=== PATIENT | male | born 1955 | race Caucasian/White ===

== ENCOUNTER 2017-04-05 18:26 | Inpatient (IN) | payer OTHER, MEDICARE ==
[2017-04-05] VITALS (7 sets, daily range): BP systolic 115–130; BP diastolic 64–68; PULSE 100–150; RESP 18–22; TEMP 98.4–101.1; O2SAT 95–97
[~2017-04-05] VITALS: Ht 165.1 cm; Wt 55.4 kg
[~2017-04-05 18:26] MED LIST: LORC10TA PO; Z.0.NO CURRENT MEDS
[2017-04-05] MEDS ORDERED: SODIUM CHLOR 0.9% 1000 ML INJ 1,000 ML IV ONE ×2 (19:00→21:00)
[2017-04-05] MEDS ORDERED: VANCOMYCIN INJ 1,000 MG in SODIUM CHLOR 0.9% 250 ML INJ 250 ML IV ONE (19:15)
[2017-04-05] MEDS ORDERED: CEFEPIME INJ 2,000 MG in SODIUM CHLORIDE 0.9% INJ 100 ML IV ONE (19:15)
--- NOTE | 2017-04-05 19:20 | PD ---
Physical Exam Narrative General: The patient is a well-developed well-nourished male in no acute distress. Head and Neck exam: Head is normocephalic atraumatic. Eyes: EOMI, pupils are equal round and reactive to light. Nose: Midline septum with pink mucous membranes Mouth: Dentition unremarkable. Moist mucus membranes. Posterior oropharynx is not erythematous. No tonsillar hypertrophy. Uvula midline. Airway patent. Neck: No palpable lymphadenopathy. No nuchal rigidity. No thyromegaly. Cardiovascular: Sinus tachycardia in the 120s to 1:30 without murmurs, gallops, or rubs. No pulse deficit to the extremities on simultaneous auscultation and palpation of his radial artery. Lungs: Clear to auscultation bilaterally. No wheezes, rhonchi, or rales. Abdomen: Soft, without tenderness to palpation in all 4 quadrants of the abdomen. No guarding, rebound, or rigidity. Bowel sounds are audible. No tenderness on palpation of McBurney's point. Extremities: No clubbing, cyanosis, or edema. Neurologic Exam: Grossly nonfocal. Skin Exam: No rash noted. Intact skin that is warm and dry. Data Data Last Documented VS Vital Signs Date Time Temp Pulse Resp B/P (MAP) Pulse Ox O2 Delivery O2 Flow Rate FiO2 04/05/17 19:11 101.1 133 20 97 Nasal Cannula 1.00 Orders Orders Sepsis Workup Initiated (04/05/17 ) Electrocardiogram (04/05/17 18:53) Complete Blood Count With Diff (04/05/17 18:53) Comprehensive Metabolic Panel (04/05/17 18:53) Prothrombin Time / Inr (Pt) (04/05/17 18:53) Act Partial Throm Time (Ptt) (04/05/17 18:53) Lactic Acid Sepsis Protocol (04/05/17 18:53) Magnesium (Mg) (04/05/17 18:53) Troponin I (04/05/17 18:53) Urinalysis - C+S If Indicated (04/05/17 18:53) Blood Culture (04/05/17 18:53) Chest, Single Ap (04/05/17 18:53) Blood Glucose (04/05/17 18:53) Ecg Monitoring (04/05/17 18:53) Iv Access Insert/Monitor (04/05/17 18:53) Oximetry (04/05/17 18:53) Oxygen Administration (04/05/17 18:53) Sodium Chlor 0.9% 1000 Ml Inj (Ns 1000 M (04/05/17 19:00) Ct Pulmonary Angiogram (04/05/17 ) Cefepime Inj (Maxipime Inj) (04/05/17 19:15) Vancomycin Inj (Vancomycin Inj) (04/05/17 19:15) Acetaminophen (Tylenol) (04/05/17 19:30) Iohexol 350 Inj (Omnipaque 350 Inj) (04/05/17 20:10) Sodium Chlor 0.9% 1000 Ml Inj (Ns 1000 M (04/05/17 21:00) Acetamin-Hydrocod 325-5 Mg ([place] 5-325 (04/05/17 21:30) Admit Order (Ed Use Only) (04/05/17 21:47) Labs Laboratory Tests Test 04/05/17 19:05 White Blood Count 5.7 TH/MM3 Red Blood Count 2.77 MIL/MM3 Hemoglobin 9.6 GM/DL Hematocrit 27.2 % Mean Corpuscular Volume 98.3 FL Mean Corpuscular Hemoglobin 34.8 PG Mean Corpuscular Hemoglobin Concent 35.5 % Red Cell Distribution Width 14.4 % Platelet Count 206 TH/MM3 Mean Platelet Volume 7.6 FL Neutrophils (%) (Auto) 71.7 % Lymphocytes (%) (Auto) 2.7 % Monocytes (%) (Auto) 25.5 % Eosinophils (%) (Auto) 0.1 % Basophils (%) (Auto) 0.0 % Neutrophils # (Auto) 4.1 TH/MM3 Lymphocytes # (Auto) 0.2 TH/MM3 Monocytes # (Auto) 1.5 TH/MM3 Eosinophils # (Auto) 0.0 TH/MM3 Basophils # (Auto) 0.0 TH/MM3 CBC Comment DIFF FINAL Differential Comment Prothrombin Time 11.2 SEC Prothromb Time International Ratio 1.1 RATIO Activated Partial Thromboplast Time 29.7 SEC Blood Urea Nitrogen 23 MG/DL Creatinine 1.53 MG/DL Random Glucose 108 MG/DL Total Protein 7.7 GM/DL Albumin 2.5 GM/DL Calcium Level 9.2 MG/DL Magnesium Level 1.3 MG/DL Alkaline Phosphatase 125 U/L Aspartate Amino Transf (AST/SGOT) 50 U/L Alanine Aminotransferase (ALT/SGPT) 41 U/L Total Bilirubin 0.9 MG/DL Sodium Level 126 MEQ/L Potassium Level 3.6 MEQ/L Chloride Level 94 MEQ/L Carbon Dioxide Level 22.2 MEQ/L Anion Gap 10 MEQ/L Estimat Glomerular Filtration Rate 46 ML/MIN Lactic Acid Level 1.8 mmol/L Troponin I LESS THAN 0.02 NG/ML [facility] Medical Record Reviewed: Yes Supervised Visit with ERIC: No Interpretation(s) Last Impressions Chest X-Ray 04/05/17 1853 Signed Impressions: Service Date/Time: Wednesday, April 05, 2017 19:16 - CONCLUSION: Trace right base infiltrate. Dmitri Manuel MD CT Angiography 04/05/17 0000 Signed Impressions: Service Date/Time: Wednesday, April 05, 2017 20:05 - CONCLUSION: 1. No pulmonary embolus. 2. Patchy bilateral pneumonia as above. 3. Vague left hilar mass concerning for carcinoma. 4. Upper limits of normal to mildly enlarged mediastinal lymph nodes. 5. Coronary artery calcification. Dmitri Manuel MD Narrative Course During the course of the patients emergency department visit, the patients history, examination, and differential diagnosis were reviewed with the patient. The patient was placed on a rim fire priming operator with oximetry and frequent blood pressure monitoring. The patient had IV access obtained and blood work sent for analysis. The patient's case was checked out to me by at the conclusion of his shift. Please see his complete history and physical. The patient had an ECG done on arrival. The patient's ECG shows a sinus tachycardia heart rate of 132, no acute ST segment elevation. QRS duration is 81 ms, QTC 352 ms. The Patient presents with low-grade fever, tachycardia, tachypnea and a history of lung cancer. The patient reports that he has had one course of chemotherapy approximately a month ago and has also been receiving radiation therapy. A Workup has been started to evaluate for possible sepsis, versus symptomatic anemia, versus pulmonary embolism. The patient was initially provided normal saline 1 L IV fluid bolus, cefepime and vancomycin IV for broad-spectrum coverage of possible underlying sepsis. The patient was given Tylenol 650 by mouth 1. The patients laboratory studies were reviewed and remarkable for a white count of 5.7, hemoglobin 9.6, platelets 206 with 71.7 neutrophils, lymphocytes 2.7, monocytes 25.5, CMP is remarkable for sodium of 126, chloride 94, BUN 23, creatinine 1.53, glucose 108, magnesium 1.3 which will be supplemented IV, AST 50, alkaline phosphatase 125, troponin I less than 0.02, albumin 2.5, lactic acid 1.8. PT 11.2, PTT 29.7 Radiology studies were reviewed and remarkable for a CTA that reveals no pulmonary embolism, patchy bilateral pneumonia, vague left hilar mass, mildly enlarged mediastinal lymph nodes, coronary artery calcifications. The patients results were discussed with the patient, including the plan of care. I explained that further testing and/ or monitoring is indicated based on the patients history, examination, and/ or laboratory findings. Therefore, I recommended admission for additional evaluation. The patient expressed understanding and was agreeable with this plan. The patient was admitted to the hospital in guarded condition and sent to a bed under the care of [facility] service. Sepsis Criteria SIRS Criteria (2 or more): Temp > 100.9 or < 96.8, Heart rate over 90, RR > 20 or PaCO2 < 32 Sepsis Criteria (SIRS+source): Infect source susp/known Criteria Outcome: Meets SIRS criteria, Meets sepsis criteria Physician Communication Physician Communication The patient's case including history, pertinent physical examination findings, and laboratory studies were discussed with Dr. Rodriguez. It was agreed that the patient would be admitted to the [facility] service. Diagnosis Primary Impression: Bilateral pneumonia Qualified Codes: J18.9 - Pneumonia, unspecified organism Additional Impression: Sepsis Qualified Codes: A41.9 - Sepsis, unspecified organism Admitting Information Admitting Physician Requests: Admit Barbara Nava MD Apr 05, 2017 19:20
[2017-04-05 19:24] LABS: AUTOMATED NEUTROPHIL # 4.1 TH/MM3 (1.8-7.7); EOSINOPHIL % 0.1 % (0.0-4.0); HEMATOCRIT 27.2 % (39.0-51.0); HEMO FLAGS DIFF FINAL; LYMPH % 2.7 % (9.0-44.0); LYMPHOCYTE # 0.2 TH/MM3 (1.0-4.8); MEAN CELL VOLUME 98.3 FL (80.0-100.0); MEAN CORPUSCULAR HEMOGLOBIN 34.8 PG (27.0-34.0); MEAN CORPUSCULAR HGB CONC 35.5 % (32.0-36.0); MONO % 25.5 % (0.0-8.0); NEUT % 71.7 % (16.0-70.0); PLATELET COUNT 206 TH/MM3 (150-450); RED BLOOD COUNT 2.77 MIL/MM3 (4.50-5.90); RED CELL DISTRIBUTION WIDTH 14.4 % (11.6-17.2); WHITE BLOOD COUNT 5.7 TH/MM3 (4.0-11.0)
--- NOTE | 2017-04-05 19:27 | PD ---
HPI Chief Complaint: Medical Clearance Time Seen by Provider: 18:42 Travel History International Travel<30 days: No Contact w/Intl Traveler<30days: No Traveled to known affect area: No History of Present Illness HPI Is a 61-year-old man who presents to the emergency department brought in by friends with worsening weakness, dyspnea on exertion, shortness of breath, and fatigue. His a recent diagnosis of lung cancer in November of this year. He's had 5 weeks of radiation therapy and he reports one episode of chemotherapy about a month or so ago. [facility]. He's had worsening symptoms and so his friends convinced him to come to the hospital here. He states that he feels like he is just dehydrated or malnourished as he hasn't been able to eat well for the past 5 days or so. History Past Medical History Narrative Medical Left-sided lung cancer, reports no metastasis Social History Alcohol Use: Yes Tobacco Use: Yes Allergies-Medications (Allergen,Severity, Reaction): Coded Allergies: No Known Allergies (Verified Adverse Reaction, Unknown, 04/05/17) Reported Meds & Prescriptions Reported Meds & Active Scripts Active Reported Lorcet 10/650 (Acetaminophen/Hydrocodone Bitart) Tab 1 Tab PO Q4HPRN FOR PAIN No Current Meds (Miscellaneous Medication) Misc Review of Systems Except as stated in HPI: all other systems reviewed are Neg Physical Exam Narrative GENERAL: Is a 61-year-old man, chronically ill-appearing, pale, decreased muscle bulk. SKIN: Generalized pallor. HEAD: Atraumatic. Normocephalic. EYES: Pupils equal and round. No scleral icterus. No injection or drainage. ENT: No nasal bleeding or discharge. Mucous membranes pink and moist. NECK: Trachea midline. No JVD. CARDIOVASCULAR: Heart rate rapid but regular. RESPIRATORY: Moderate tachypnea. No obvious respiratory distress. Lungs are clear to auscultation. GASTROINTESTINAL: Abdomen soft, non-tender, nondistended. Hepatic and splenic margins not palpable. MUSCULOSKELETAL: No obvious deformities. Decreased muscle bulk. No edema. NEUROLOGICAL: Awake and alert. No obvious cranial nerve deficits. Motor grossly within normal limits. Normal speech. PSYCHIATRIC: Appropriate mood and affect; insight and judgment normal. Data Data Last Documented VS Vital Signs Date Time Temp Pulse Resp B/P (MAP) Pulse Ox O2 Delivery O2 Flow Rate FiO2 04/05/17 19:11 101.1 133 20 97 Nasal Cannula 1.00 Orders Orders Sepsis Workup Initiated (04/05/17 ) Electrocardiogram (04/05/17 18:53) Complete Blood Count With Diff (04/05/17 18:53) Comprehensive Metabolic Panel (04/05/17 18:53) Prothrombin Time / Inr (Pt) (04/05/17 18:53) Act Partial Throm Time (Ptt) (04/05/17 18:53) Lactic Acid Sepsis Protocol (04/05/17 18:53) Magnesium (Mg) (04/05/17 18:53) Troponin I (04/05/17 18:53) Urinalysis - C+S If Indicated (04/05/17 18:53) Blood Culture (04/05/17 18:53) Chest, Single Ap (04/05/17 18:53) Blood Glucose (04/05/17 18:53) Ecg Monitoring (04/05/17 18:53) Iv Access Insert/Monitor (04/05/17 18:53) Oximetry (04/05/17 18:53) Oxygen Administration (04/05/17 18:53) Sodium Chlor 0.9% 1000 Ml Inj (Ns 1000 M (04/05/17 19:00) Ct Pulmonary Angiogram (04/05/17 ) Cefepime Inj (Maxipime Inj) (04/05/17 19:15) Vancomycin Inj (Vancomycin Inj) (04/05/17 19:15) Acetaminophen (Tylenol) (04/05/17 19:30) Labs Laboratory Tests Test 04/05/17 19:05 [facility] Medical Decision Making Medical Screen Exam Complete: Yes Emergency Medical Condition: Yes Differential Diagnosis Sepsis, anemia, PE, pleural effusion, pericardial effusion, dehydration, electrolyte abnormality, other Narrative Course Medical decision making INITIAL: This is a 61-year-old man, ill-appearing, pale, with new diagnosis of malignancy, receiving chemotherapy and radiation therapy, no recent chemotherapy , with tachycardia, tachypnea, and ill-appearing plenty of dyspnea on exertion or shortness of breath. He looks anemic. PE is possible. Sepsis or infection also probable. We'll check labs, x-ray, CT pulmonary angiogram, IV fluids, antibiotics, reassess. Luis Rausch MD Apr 05, 2017 19:27
[2017-04-05] MEDS ORDERED: ACETAMINOPHEN 325 MG TAB PO ONE (19:30)
[2017-04-05 19:35] LABS: APTT (PATIENT) 29.7 SEC (24.3-30.1); INTERNATIONAL NORMALIZED RATIO 1.1 RATIO; PROTHROMBIN TIME - PATIENT 11.2 SEC (9.8-11.6)
--- NOTE | 2017-04-05 19:39 | RADRPT ---
EXAM DATE/TIME: 04/05/2017 19:16 [facility] COMPARISON: No previous studies available for comparison. INDICATIONS : Short of breath. MEDICAL HISTORY : None. SURGICAL HISTORY : None. ENCOUNTER: Initial ACUITY: 1 day PAIN SCORE: 0/10 LOCATION: Bilateral chest FINDINGS: Mild infiltrate seen in the right lung base. No pleural effusion. No pneumothorax. Normal heart size. CONCLUSION: Trace right base infiltrate. Dmitri Manuel MD on April 05, 2017 at 19:37 Board Certified Radiologist. This report was verified electronically.
[2017-04-05 19:43] LABS: ALT (GPT) 41 U/L (12-78); ANION GAP 10 MEQ/L (5-15); AST (GOT) 50 U/L (15-37); BICARBONATE 22.2 MEQ/L (21.0-32.0); BLOOD UREA NITROGEN 23 MG/DL (7-18); CHLORIDE 94 MEQ/L (98-107); GLOMERULAR FILTRATION RATE 46 ML/MIN (>89); MAGNESIUM 1.3 MG/DL (1.5-2.5); POTASSIUM 3.6 MEQ/L (3.5-5.1); SODIUM (NA) 126 MEQ/L (136-145)
[2017-04-05 19:47] LABS: ALKALINE PHOSPHATASE 125 U/L (45-117); TOTAL BILIRUBIN ADULT 0.9 MG/DL (0.2-1.0)
[2017-04-05] MEDS ORDERED: IOHEXOL 350 MG/ML 10 ML VIAL (for RAD DIAG) IVCONTRAST ONE (20:10)
--- NOTE | 2017-04-05 20:33 | RADRPT ---
EXAM DATE/TIME: 04/05/2017 20:05 [facility] COMPARISON: CHEST SINGLE AP, April 05, 2017, 19:16. INDICATIONS : Weakness; rule out pulmonary embolus. IV CONTRAST: 74 cc Omnipaque 350 (iohexol) IV RADIATION DOSE: 22.98 CTDIvol (mGy) MEDICAL HISTORY : Carcinoma, lung. Cardiovascular disease Hypertension. SURGICAL HISTORY : None. ENCOUNTER: Initial ACUITY: 1 day PAIN SCALE: 0/10 LOCATION: chest TECHNIQUE: Volumetric scanning of the chest was performed using a pulmonary embolism protocol MIP images were re constructed. Using automated exposure control and adjustment of the mA and/or kV according to patien t size, radiation dose was kept as low as reasonably achievable to obtain optimal diagnostic quality images. DICOM format image data is available electronically for review and comparison. Follow-up recommendations for detected pulmonary nodules are based at a minimum on nodule size and pa tient risk factors according to Fleischner Society Guidelines. FINDINGS: There is no pulmonary embolus. There is mild emphysema. Patchy parenchymal consolidation seen of both lungs, on the right espec ially the anterior segment of the right upper lobe and posteriorly in the right lower lobe. On the le ft there is mostly upper lobe and superior segment of the lower lobe involvement. No pleural effusion s are demonstrated. No pneumothorax. Vague masslike area seen in the left hilum measuring approximately 3.9 x 4.2 x 3.9 cm in size an d of concern for a central primary bronchogenic carcinoma. There is a subcarinal lymph node and measu res 15 mm in greatest short axis dimension and multiple scattered subcentimeter lymph nodes elsewhere in the mediastinum. Heart size within normal limits. Coronary artery calcification noted. CONCLUSION: 1. No pulmonary embolus. 2. Patchy bilateral pneumonia as above. 3. Vague left hilar mass concerning for carcinoma. 4. Upper limits of normal to mildly enlarged mediastinal lymph nodes. 5. Coronary artery calcification. Dmitri Manuel MD on April 05, 2017 at 20:26 Board Certified Radiologist. This report was verified electronically.
[2017-04-05] MEDS ORDERED: ACETAMINOPHEN/HYDROcodone 325 MG/5 MG TAB PO ONE (21:30)
[2017-04-05] MEDS ORDERED: HYDROmorphone HCL PF 1 MG/ML VIAL IV PUSH PRN (22:00)
[2017-04-05] MEDS ORDERED: SENNOSIDES 8.6 MG TAB PO PRN (22:00)
[2017-04-05] MEDS ORDERED: RESP: ALBUTEROL 2.5 MG/IPRATROPIUM 0.5 MG NEB (PRN) NEB (22:00)
[2017-04-05] MEDS ORDERED: LACTULOSE SYRUP 20 GM/30 ML CUP PO PRN (22:00)
[2017-04-05] MEDS ORDERED: MAGNESIUM HYDROXIDE SUSP 30 ML CUP PO PRN (22:00)
[2017-04-05] MEDS ORDERED: Vancomycin Consult Pharmacy 1 EA OTHER SCH (22:00)
[2017-04-05] MEDS ORDERED: BISACODYL 10 MG SUPP RECTAL PRN (22:00)
[2017-04-05] MEDS ORDERED: ONDANSETRON HCL 4 MG/2 ML VIAL IVP PRN (22:00)
[2017-04-05] MEDS ORDERED: SODIUM CHLORIDE 0.9% FLUSH 10 ML FLUSH IV FLUSH PRN (22:00)
--- NOTE | 2017-04-05 22:01 | HHI.HP ---
HPI Service [facility] Primary Care Physician Unknown Admission Diagnosis Bilateral pneumonia Diagnoses: (1) Sepsis Diagnosis: Principal (2) PNA (pneumonia) Diagnosis: Principal (3) Lung cancer Diagnosis: Principal (4) OBED (acute kidney injury) Diagnosis: Principal Travel History International Travel<30 Days: No Contact w/Intl Traveler <30 Da: No Traveled to Known Affected Are: No History of Present Illness This is a 61-year-old male with a PMH of Lung CA, HTN, CAD, COPD and Tobacco Abuse who was brought to the ER by friends secondary to complaints of generalized weakness and SOB x1 wk. Also notes decreased PO intake. Recently diagnosed w/ Lung CA in November 2016, has completed 5wks of Radiation, pending Chemotherapy. States symptoms have been getting progressively worse. Denies fever, chills, nausea, vomiting or diarrhea. On arrival, BP 117/64, HR 133, O2 sat 97% on 2L NC, Temp 101.1. WBC normal however elevated neutrophil count. Creatinine 1.53, previously 0.86 on 09/25/16. Troponin negative. Lactic Acid normal. INR 1.1. CXR with trace right basilar infiltrate. CTA Pulm negative for PE, patchy bilateral pneumonia, left hilar mass concerning for carcinoma. S /p Blood Cultures, Vanc/Cefepime in ER. Review of Systems Except as stated in HPI: all other systems reviewed are Neg ROS: 14 point review of systems otherwise negative. Past Family Social History Past Medical History PMH: Lung CA, HTN, CAD, COPD and Tobacco Abuse Past Surgical History PAST SURGICAL HISTORY: Abdominal Surgery Allergies: Coded Allergies: No Known Allergies (Verified Allergy, Unknown, 04/05/17) Family History PAST FAMILY HISTORY: Reviewed. No h/o DM or CAD Social History PAST SOCIAL HISTORY: Occasional alcohol. Positive for tobacco. Negative drugs. Physical Exam Vital Signs Vital Signs Date Time Temp Pulse Resp B/P (MAP) Pulse Ox O2 Delivery O2 Flow Rate FiO2 04/05/17 21:51 98.4 105 20 117/64 (81) 95 Nasal Cannula 1.00 04/05/17 19:11 101.1 133 20 97 Nasal Cannula 1.00 04/05/17 18:55 (88) 97 Room Air 04/05/17 18:55 97 Room Air 04/05/17 18:51 134 29 04/05/17 18:28 100.1 150 22 130/68 (88) 95 Physical Exam PE: GENERAL: Middle-aged male in no acute distress. HEENT: PERRLA, EOMI. No scleral icterus or conjunctival pallor. No lid lag or facial droop. CARDIOVASCULAR: +tachycardia. No obvious murmurs to auscultation. No chest tenderness to palpation. RESPIRATORY: No obvious rhonchi or wheezing. Clear to auscultation. Breath sounds equal bilaterally. GASTROINTESTINAL: Abdomen soft, non-tender, nondistended. BS normal. MUSCULOSKELETAL: Extremities without clubbing, cyanosis, or edema. No obvious deformities. NEUROLOGICAL: Awake, alert and oriented x4. No focal neurologic deficits. Moving both upper and lower extremities spontaneously. Laboratory Laboratory Tests Test 04/05/17 19:05 White Blood Count 5.7 Red Blood Count 2.77 Hemoglobin 9.6 Hematocrit 27.2 Mean Corpuscular Volume 98.3 Mean Corpuscular Hemoglobin 34.8 Mean Corpuscular Hemoglobin Concent 35.5 Red Cell Distribution Width 14.4 Platelet Count 206 Mean Platelet Volume 7.6 Neutrophils (%) (Auto) 71.7 Lymphocytes (%) (Auto) 2.7 Monocytes (%) (Auto) 25.5 Eosinophils (%) (Auto) 0.1 Basophils (%) (Auto) 0.0 Neutrophils # (Auto) 4.1 Lymphocytes # (Auto) 0.2 Monocytes # (Auto) 1.5 Eosinophils # (Auto) 0.0 Basophils # (Auto) 0.0 CBC Comment DIFF FINAL Differential Comment Prothrombin Time 11.2 Prothromb Time International Ratio 1.1 Activated Partial Thromboplast Time 29.7 Blood Urea Nitrogen 23 Creatinine 1.53 Random Glucose 108 Total Protein 7.7 Albumin 2.5 Calcium Level 9.2 Magnesium Level 1.3 Alkaline Phosphatase 125 Aspartate Amino Transf (AST/SGOT) 50 Alanine Aminotransferase (ALT/SGPT) 41 Total Bilirubin 0.9 Sodium Level 126 Potassium Level 3.6 Chloride Level 94 Carbon Dioxide Level 22.2 Anion Gap 10 Estimat Glomerular Filtration Rate 46 Lactic Acid Level 1.8 Troponin I LESS THAN 0.02 Date/Time Source Procedure Growth Status 04/05/17 19:05 Blood Peripheral Aerobic Blood Culture Pending Received 04/05/17 19:05 Blood Peripheral Anaerobic Blood Culture Pending Received Result Diagram: 04/05/175 04/05/17 190 Caprini VTE Risk Assessment Caprini VTE Risk Assessment: Mod/High Risk (score >= 2) Caprini Risk Assessment Model Point Value = 1 Point Value = 2 Point Value = 3 Point Value = 5 Age 41-60 Minor surgery BMI > 25 kg/m2 Swollen legs Varicose veins or History of unexplained or recurrent spontaneous Oral contraceptives or hormone replacement Sepsis (< 1 month) Serious lung disease, including pneumonia (< 1 month) Abnormal pulmonary function Acute myocardial infarction Congestive heart failure (< 1 month) History of inflammatory bowel disease Medical patient at bed rest Age 61-74 Arthroscopic surgery Major open surgery (> 45 min) Laparoscopic surgery (> 45 min) Malignancy Confined to bed (> 72 hours) Immobilizing plaster cast Central venous access Age >= 75 History of VTE Family history of VTE Factor V Leiden Prothrombin [id number] Lupus anticoagulant Anticardiolipin antibodies Elevated serum homocysteine Heparin-induced thrombocytopenia Other congenital or acquired thrombophilia Stroke (< 1 month) Elective arthroplasty Hip, pelvis, or leg fracture Acute spinal cord injury (< 1 month) Prophylaxis Regimen Total Risk Factor Score Risk Level Prophylaxis Regimen 0-1 Low Early ambulation 2 Moderate Order ONE of the following: *Sequential Compression Device (SCD) *Heparin 5000 units SQ BID 3-4 Higher Order ONE of the following medications: *Heparin 5000 units SQ TID *Enoxaparin/Lovenox 40 mg SQ daily (WT < 150 kg, CrCl > 30 mL/min) *Enoxaparin/Lovenox 30 mg SQ daily (WT < 150 kg, CrCl > 10-29 mL/min) *Enoxaparin/Lovenox 30 mg SQ BID (WT < 150 kg, CrCl > 30 mL/min) AND/OR *Sequential Compression Device (SCD) 5 or more Highest Order ONE of the following medications: *Heparin 5000 units SQ TID (Preferred with Epidurals) *Enoxaparin/Lovenox 40 mg SQ daily (WT < 150 kg, CrCl > 30 mL/min) *Enoxaparin/Lovenox 30 mg SQ daily (WT < 150 kg, CrCl > 10-29 mL/min) *Enoxaparin/Lovenox 30 mg SQ BID (WT < 150 kg, CrCl > 30 mL/min) AND *Sequential Compression Device (SCD) Assessment and Plan Problem List: (1) Sepsis ICD Code: A41.9 - Sepsis, unspecified organism Status: Acute (2) PNA (pneumonia) ICD Code: J18.9 - Pneumonia, unspecified organism (3) OBED (acute kidney injury) ICD Code: N17.9 - Acute kidney failure, unspecified (4) Lung cancer ICD Code: C34.90 - Malignant neoplasm of unspecified part of unspecified bronchus or lung Assessment and Plan A/P: 1. Sepsis: Temp 101.1, HR 130, WBC normal however elevated neutrophil count. Source-PNA. S/p Blood Cultures, Vanc/Cefepime in ER. Follow up cultures, continue IV Abx. 2. PNA: CXR w/ right base infiltrate, CTA Pulm negative for PE, +bilateral pneumonia and right hilar mass, images reviewed by me. Continue w/ IV Abx as above. DuoNeb prn. 3. Lung CA: Recently diagnosed in November 2016, s/p 5wk Radiation, pending Chemotherapy. Follow up w/ Oncology as scheduled. 4. OBED: Creatinine 1.53, previously 0.86 on 09/25/16, IVF for hydration, repeat labs in am. 5. Tobacco Abuse: Pt counselled. NicoDerm prn if needed. 6. DVT Prophylaxis: Heparin sq 7. Social work for d/c planning as needed. 8. Case discussed w/ ER physician at length. Physician Certification 2 Midnight Certification Type: Admission for Inpatient Services Order for Inpatient Services The services are ordered in accordance with Medicare regulations or non- Medicare payer requirements, as applicable. In the case of services not specified as inpatient-only, they are appropriately provided as inpatient services in accordance with the 2-midnight benchmark. Estimated LOS (days): 2 days is the estimated time the patient will need to remain in the hospital, assuming treatment plan goals are met and no additional complications. Post-Hospital Plan: Not yet determined Problem Qualifiers (1) Sepsis: Qualified Codes: A41.9 - Sepsis, unspecified organism Remedios Rodriguez MD Apr 05, 2017 22:01
[2017-04-05] MEDS ORDERED: MAGNESIUM SULFATE 1 GM PREMIX 100 ML IV ONE (23:00)
[2017-04-06] VITALS (7 sets, daily range): BP systolic 128–162; BP diastolic 67–79; PULSE 94–139; RESP 20–22; TEMP 97.3–100.2; O2SAT 91–96
[2017-04-06] MEDS: ACETAMINOPHEN 325 MG TAB PO PRN ×2 (03:49→21:01)
--- NOTE | 2017-04-06 07:59 | HHI.PR ---
Subjective Remarks In bed complaints of sore mouth will give magic wash on soft diet. Also low K replaced. No n/v/d/c. Says she did not eat for 1 week. No much cough feel very tired and appears malnourished, cachectic. No fever or chills. Objective Vitals Vital Signs Date Time Temp Pulse Resp B/P (MAP) Pulse Ox O2 Delivery O2 Flow Rate FiO2 04/06/17 04:00 139 04/06/17 04:00 100.2 125 20 128/67 (87) 91 04/06/17 04:00 Nasal Cannula 2.00 04/06/17 00:00 116 04/06/17 00:00 Nasal Cannula 2.00 04/05/17 23:19 106 04/05/17 23:15 98.4 114 21 115/64 (81) 97 04/05/17 22:40 04/05/17 22:39 100 18 95 Nasal Cannula 1.00 04/05/17 21:51 98.4 105 20 117/64 (81) 95 Nasal Cannula 1.00 04/05/17 19:11 101.1 133 20 97 Nasal Cannula 1.00 04/05/17 18:55 (88) 97 Room Air 04/05/17 18:55 97 Room Air 04/05/17 18:51 134 29 04/05/17 18:28 100.1 150 22 130/68 (88) 95 I/O 04/05/17 04/05/17 04/05/17 04/06/17 04/06/17 04/06/17 07:00 15:00 23:00 07:00 15:00 23:00 Intake Total 1350 ml 480 ml Output Total 150 ml Balance 1350 ml 330 ml Intake Oral 480 ml IV Total 1350 ml Output Urine Total 150 ml # Bowel Movements 1 Result Diagram: 04/05/17190404/05/171904 Imaging Last Impressions Chest X-Ray 04/05/173 Signed Impressions: Service Date/Time: Wednesday, April 05, 2017 19:16 - CONCLUSION: Trace right base infiltrate. Dmitri Manuel MD CT Angiography 04/05/17 0000 Signed Impressions: Service Date/Time: Wednesday, April 05, 2017 20:05 - CONCLUSION: 1. No pulmonary embolus. 2. Patchy bilateral pneumonia as above. 3. Vague left hilar mass concerning for carcinoma. 4. Upper limits of normal to mildly enlarged mediastinal lymph nodes. 5. Coronary artery calcification. Dmitri Manuel MD Objective Remarks GENERAL: Middle-aged male cachectic, in no acute distress. HEENT: Bitemporal waisting. CARDIOVASCULAR: +tachycardia. No obvious murmurs to auscultation. No chest tenderness to palpation. RESPIRATORY: No obvious rhonchi or wheezing. Clear to auscultation. Breath sounds equal bilaterally. GASTROINTESTINAL: Abdomen soft, non-tender, nondistended. BS normal. 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 Extremities without clubbing, cyanosis, or edema. No obvious deformities. NEUROLOGICAL: Awake, alert and oriented x4. No focal neurologic deficits. Moving both upper and lower extremities spontaneously. A/P Problem List: (1) Sepsis ICD Code: A41.9 - Sepsis, unspecified organism Status: Acute (2) PNA (pneumonia) ICD Code: J18.9 - Pneumonia, unspecified organism (3) OBED (acute kidney injury) ICD Code: N17.9 - Acute kidney failure, unspecified (4) Lung cancer ICD Code: C34.90 - Malignant neoplasm of unspecified part of unspecified bronchus or lung Assessment and Plan Sepsis: Temp 101.1, HR 130, WBC normal however elevated neutrophil count. Source-PNA. S/p Blood Cultures, Vanc/Cefepime in ER. Follow up cultures, continue IV Abx. Check legionella.pneumococcal Ag urine, check sputum cultures PNA: CXR w/ right base infiltrate, CTA Pulm negative for PE, +bilateral pneumonia and right hilar mass, images reviewed by me. Continue w/ IV Abx as above. DuoNeb prn. Hyponatremia: Na 126 on admission. Continue NS IVF, monitor Na closely for overcorrection. Hypokalemia: Replace with KCL po. mOnitor K level and replce as need. Sore mouth will give magic wash, continue on soft diet. Severe Protein calorie malnutrition cachectic bitemporal waisint, weak handgrip. Will check prealbumin. Add ensure to diet, patient with poor dentition to follow up as OP with dentist Lung CA: Recently diagnosed in November 2016, s/p 5wk Radiation, pending Chemotherapy. Follow up w/ Oncology as scheduled. OBED: Creatinine 1.53, previously 0.86 on 09/25/16, IVF for hydration, repeat labs in am. Tobacco Abuse: Pt counselled. NicoDerm prn if needed. DVT Prophylaxis: Heparin sq case management consulted for d/c planning as needed. Discussed with the patient, nurse Problem Qualifiers (1) Sepsis: Qualified Codes: A41.9 - Sepsis, unspecified organism Queenie Wright MD Apr 06, 2017 07:59
[2017-04-06 08:38] LABS: AUTOMATED NEUTROPHIL # 4.4 TH/MM3 (1.8-7.7); BASOPHIL % 0.1 % (0.0-2.0); EOSINOPHIL % 0.5 % (0.0-4.0); HEMATOCRIT 23.9 % (39.0-51.0); HEMO FLAGS DIFF FINAL; LYMPH % 2.5 % (9.0-44.0); LYMPHOCYTE # 0.1 TH/MM3 (1.0-4.8); MEAN CELL VOLUME 100.9 FL (80.0-100.0); MEAN CORPUSCULAR HEMOGLOBIN 34.2 PG (27.0-34.0); MEAN CORPUSCULAR HGB CONC 33.9 % (32.0-36.0); MONO % 17.8 % (0.0-8.0); NEUT % 79.1 % (16.0-70.0); PLATELET COUNT 187 TH/MM3 (150-450); RED BLOOD COUNT 2.37 MIL/MM3 (4.50-5.90); RED CELL DISTRIBUTION WIDTH 14.2 % (11.6-17.2); WHITE BLOOD COUNT 5.5 TH/MM3 (4.0-11.0)
[2017-04-06] MEDS: guaiFENesin E.R. 600 MG TAB PO SCH ×2 (08:41→20:47)
[2017-04-06] MEDS: SODIUM CHLORIDE 0.9% FLUSH 10 ML FLUSH IV FLUSH SCH ×2 (08:41→20:47)
[2017-04-06] MEDS: DOCUSATE SODIUM 50 MG/SENNA 8.6 MG TAB PO SCH ×2 (08:42→20:47)
[2017-04-06] MEDS: HEPARIN SODIUM - SQ 10,000 UNITS/ML VIAL SQ SCH ×2 (08:42→20:47)
[2017-04-06] MEDS ORDERED: CEFEPIME INJ 1,000 MG in SODIUM CHLORIDE 0.9% INJ 100 ML IV SCH (09:00)
[2017-04-06 09:21] LABS: ALKALINE PHOSPHATASE 106 U/L (45-117); ALT (GPT) 30 U/L (12-78); ANION GAP 9 MEQ/L (5-15); AST (GOT) 39 U/L (15-37); BICARBONATE 19.8 MEQ/L (21.0-32.0); BLOOD UREA NITROGEN 17 MG/DL (7-18); CHLORIDE 103 MEQ/L (98-107); GLOMERULAR FILTRATION RATE 77 ML/MIN (>89); POTASSIUM 3.2 MEQ/L (3.5-5.1); SODIUM (NA) 132 MEQ/L (136-145); TOTAL BILIRUBIN ADULT 0.6 MG/DL (0.2-1.0)
[2017-04-06] MEDS: SODIUM CHLOR 0.9% 1000 ML INJ 1,000 ML IV SCH ×2 (11:03→17:42)
[2017-04-06] MEDS ORDERED: POTASSIUM CHLORIDE 10 MEQ CONTROLLED RELEASE TAB PO ONE (12:30)
[2017-04-06] MEDS: NYSTAT/DIPHENHY/LIDO MOUTHWASH (Adult) 120ML SWISH-SWAL SCH ×3 (13:00→20:48)
[2017-04-06] MEDS: VANCOMYCIN 1,000 MG/NS 250 ML IV SCH ×2 (14:11)
--- NOTE | 2017-04-06 18:48 | EKG ---
Date Performed: 04/05/2017 Time Performed: 19:22:19 PTAGE: 61 years EKG: SINUS TACHYCARDIA ABNORMAL RHYTHM ECG NO PREVIOUS TRACING DOCTOR: Jose Gomes Interpretating Date/Time 04/06/2017 18:47:30
[2017-04-06] MEDS ORDERED: METOPROLOL TARTRATE 25 MG TAB PO ONE (20:30)
[2017-04-06] MEDS: CEFEPIME 2000 MG/NS 100 ML IV SCH ×2 (20:47)
[2017-04-06 20:57] LABS: HEMATOCRIT 22.5 % (39.0-51.0); REVIEW FLAG FINAL
[2017-04-07] VITALS (9 sets, daily range): BP systolic 116–158; BP diastolic 59–94; PULSE 102–136; RESP 18–22; TEMP 97.7–101.1; O2SAT 90–94
[2017-04-07 01:24] LABS: APTT (PATIENT) 35.6 SEC (24.3-30.1)
[2017-04-07] MEDS ORDERED: POTASSIUM CHLORIDE 25 MEQ EFFERVESCENT TAB PO ONE (02:15)
[2017-04-07] MEDS: SODIUM CHLOR 0.9% 1000 ML INJ 1,000 ML IV SCH ×2 (02:39→14:58)
[2017-04-07 03:22] LABS: AUTOMATED NEUTROPHIL # 5.6 TH/MM3 (1.8-7.7); BASOPHIL % 0.2 % (0.0-2.0); EOSINOPHIL # 0.1 TH/MM3 (0-0.4); EOSINOPHIL % 0.8 % (0.0-4.0); HEMATOCRIT 22.8 % (39.0-51.0); HEMO FLAGS DIFF FINAL; LYMPH % 4.1 % (9.0-44.0); LYMPHOCYTE # 0.3 TH/MM3 (1.0-4.8); MEAN CELL VOLUME 100.4 FL (80.0-100.0); MEAN CORPUSCULAR HEMOGLOBIN 34.8 PG (27.0-34.0); MEAN CORPUSCULAR HGB CONC 34.7 % (32.0-36.0); NEUT % 83.9 % (16.0-70.0); PLATELET COUNT 183 TH/MM3 (150-450); RED BLOOD COUNT 2.27 MIL/MM3 (4.50-5.90); RED CELL DISTRIBUTION WIDTH 14.4 % (11.6-17.2); WHITE BLOOD COUNT 6.7 TH/MM3 (4.0-11.0)
[2017-04-07 03:41] LABS: BICARBONATE 21.2 MEQ/L (21.0-32.0); MAGNESIUM 1.5 MG/DL (1.5-2.5); POTASSIUM 3.8 MEQ/L (3.5-5.1)
[2017-04-07] MEDS ORDERED: METO25TA3 PO (04:36)
[2017-04-07] MEDS ORDERED: TAMS0.4C4 PO (04:36)
[2017-04-07] MEDS ORDERED: LOVA10TA PO (04:46)
[2017-04-07] MEDS ORDERED: FURO20TA PO (04:46)
[2017-04-07] MEDS ORDERED: CLOP75TA PO (04:46)
[2017-04-07] MEDS ORDERED: CENTCHW4 CHEW (04:46)
[2017-04-07] MEDS ORDERED: KLOR8TAB PO (04:46)
[2017-04-07] MEDS ORDERED: UMEC1AER INH (04:46)
[2017-04-07] MEDS ORDERED: CYAN1TAB24 (04:46)
[2017-04-07] MEDS: NYSTAT/DIPHENHY/LIDO MOUTHWASH (Adult) 120ML SWISH-SWAL SCH ×4 (08:52→20:14)
[2017-04-07] MEDS: SODIUM CHLORIDE 0.9% FLUSH 10 ML FLUSH IV FLUSH SCH ×2 (08:54→20:15)
[2017-04-07] MEDS: VANCOMYCIN 1,000 MG/NS 250 ML IV SCH ×2 (08:54)
[2017-04-07] MEDS: guaiFENesin E.R. 600 MG TAB PO SCH ×2 (08:54→20:14)
[2017-04-07] MEDS: DOCUSATE SODIUM 50 MG/SENNA 8.6 MG TAB PO SCH ×2 (08:54→20:14)
[2017-04-07] MEDS: HEPARIN SODIUM - SQ 10,000 UNITS/ML VIAL SQ SCH ×2 (08:55→20:15)
[2017-04-07] MEDS ORDERED: INFLUENZA VIRUS VACCINE (QUADRIVALENT) 0.5 ML SYR IM ONE (10:00)
[2017-04-07] MEDS ORDERED: PNEUMOCOCCAL POLYVALENT INJ 25 MCG/0.5 ML SYR IM ONE (10:00)
[2017-04-07 13:41] LABS: BLOOD, URINE NEG (NEG); GLUCOSE,URINE NEG (NEG); KETONE, URINE NEG (NEG); MUCUS URINE FEW /lpf (OCC); NITRITE,URINE NEG (NEG); SQUAMOUS EPITHELIAL CELL URINE <1 /hpf (0-5); URINE COLOR YELLOW (YELLW/STRAW)
[2017-04-07 13:42] LABS: COMMENT (UR) CATH-CULT NOT IND; CULTURE IF INDICATED CATH CULTURE NOT IND
--- NOTE | 2017-04-07 14:25 | HHI.PR ---
Subjective Remarks complains of oral pain- causing decrease po intake on exam with wheezing still tachycardic 120-130s- in sinus Objective Vitals Vital Signs Date Time Temp Pulse Resp B/P (MAP) Pulse Ox O2 Delivery O2 Flow Rate FiO2 04/07/17 12:00 97.9 120 18 158/74 (102) 90 04/07/17 12:00 90 Nasal Cannula 4.00 04/07/17 08:00 98.2 117 20 145/88 (107) 92 04/07/17 08:00 92 Nasal Cannula 4.00 04/07/17 08:00 115 04/07/17 04:00 111 04/07/17 04:00 98.6 115 18 139/76 (97) 92 04/07/17 01:57 Nasal Cannula 3.00 04/07/17 01:52 97.9 105 20 116/59 (78) 91 04/07/17 00:00 136 04/07/17 00:00 97.9 105 20 116/59 (78) 91 04/06/17 20:13 99.3 136 22 162/79 (106) 92 04/06/17 20:00 Nasal Cannula 3.00 04/06/17 20:00 94 04/06/17 20:00 Nasal Cannula 04/06/17 16:00 97.3 131 20 135/78 (97) 91 I/O 04/06/17 04/06/17 04/06/17 04/07/17 04/07/17 04/07/17 07:00 15:00 23:00 07:00 15:00 23:00 Intake Total 480 ml 360 ml 100 ml 999 ml Output Total 150 ml 450 ml 150 ml Balance 330 ml 360 ml 100 ml 549 ml -150 ml Intake Oral 480 ml 360 ml IV Total 100 ml 999 ml Output Urine Total 150 ml 450 ml 150 ml # Voids 2 # Bowel Movements 1 2 1 Result Diagram: 04/07/17 0256 04/07/17 0256 Imaging Last Impressions Chest X-Ray 04/05/173 Signed Impressions: Service Date/Time: Wednesday, April 05, 2017 19:16 - CONCLUSION: Trace right base infiltrate. Dmitri Manuel MD CT Angiography 04/05/17 0000 Signed Impressions: Service Date/Time: Wednesday, April 05, 2017 20:05 - CONCLUSION: 1. No pulmonary embolus. 2. Patchy bilateral pneumonia as above. 3. Vague left hilar mass concerning for carcinoma. 4. Upper limits of normal to mildly enlarged mediastinal lymph nodes. 5. Coronary artery calcification. Dmitri Manuel MD Objective Remarks awake and alert, good sats on 02 oral cavity- right lower molar/gingival area - inner gum area- with calcium deposits (per patient chronic) with few expiratory wheezes regular rhythm abdomen soft, nontender extremities no edema A/P Problem List: (1) Sepsis ICD Code: A41.9 - Sepsis, unspecified organism Status: Acute (2) PNA (pneumonia) ICD Code: J18.9 - Pneumonia, unspecified organism (3) OBED (acute kidney injury) ICD Code: N17.9 - Acute kidney failure, unspecified (4) Lung cancer ICD Code: C34.90 - Malignant neoplasm of unspecified part of unspecified bronchus or lung Assessment and Plan 61 years old male Sepsis: Temp 101.1, HR 130, WBC normal however elevated neutrophil count. Source-PNA. S/p Blood Cultures, Vanc/Cefepime in ER. Follow up cultures, continue IV Abx. legionella.pneumococcal Ag urine, check sputum cultures PNA: CXR w/ right base infiltrate, CTA Pulm negative for PE, +bilateral pneumonia and right hilar mass, Continue w/ IV Abx as above. DuoNeb prn. History of Lung CA: Underlying COPD Recently diagnosed in November 2016, s/p 5wk Radiation, pending Chemotherapy. Follow up w/ Oncology as scheduled. start IV solumedrol q 6 duoneb Hyponatremia: asymptomatic. Na 126 on admission. , monitor Na closely for overcorrection. Hypokalemia: Replace with KCL po. mOnitor K level and replce as need. Gingival deposit- right lower gum area - chronic Sore mouth on magic wash, continue on soft diet. Severe Protein calorie malnutrition cachectic . Will check prealbumin. Add ensure to diet, patient with poor dentition to follow up as OP with dentist dietitian consult OBED: Creatinine 1.53, previously 0.86 on 09/25/16, IVF for hydration, ff Tobacco Abuse: Pt counselled. NicoDerm prn if needed. DVT Prophylaxis: Heparin sq case management consulted for d/c planning as needed. Discussed with the patient, nurse Problem Qualifiers (1) Sepsis: Qualified Codes: A41.9 - Sepsis, unspecified organism Darryl Villalba MD Apr 07, 2017 14:25
[2017-04-07] MEDS ORDERED: DILTIAZEM HCL 25 MG/5 ML VIAL IV ONE (14:45)
[2017-04-07] MEDS: PANTOPRAZOLE SODIUM 40 MG VIAL IV PUSH SCH (14:58)
[2017-04-07] MEDS: methylPREDNISolone SOD SUCC 40 MG/1 ML VIAL IV PUSH SCH ×2 (14:58→20:15)
[2017-04-07] MEDS: RESP: ALBUTEROL 2.5 MG/IPRATROPIUM 0.5 MG NEB (SCH) NEB ×2 (15:38→21:02)
[2017-04-07] MEDS: ACETAMINOPHEN 325 MG TAB PO PRN (15:39)
[2017-04-07] MEDS ORDERED: DILTIAZEM HCL 30 MG TAB PO SCH ×2 (16:00→18:00)
[2017-04-07] MEDS: CEFEPIME 2000 MG/NS 100 ML IV SCH ×2 (20:28)
[2017-04-08] VITALS (18 sets, daily range): BP systolic 87–162; BP diastolic 50–94; PULSE 73–138; RESP 18–30; TEMP 96.4–97.7; O2SAT 91–100
[2017-04-08] MEDS: VANCOMYCIN 1,000 MG/NS 250 ML IV SCH ×2 (01:14)
[2017-04-08] MEDS: methylPREDNISolone SOD SUCC 40 MG/1 ML VIAL IV PUSH SCH ×3 (01:15→16:21)
[2017-04-08] MEDS: SODIUM CHLOR 0.9% 1000 ML INJ 1,000 ML IV SCH (01:16)
[2017-04-08] MEDS ORDERED: PHARMACY ORDERED LAB ONE (01:45)
[2017-04-08] MEDS: RESP: ALBUTEROL 2.5 MG/IPRATROPIUM 0.5 MG NEB (SCH) NEB (02:42)
[2017-04-08] MEDS ORDERED: methylPREDNISolone SOD SUCC 125 MG/2 ML VIAL IV PUSH ONE (04:15)
[2017-04-08] MEDS ORDERED: RESP: ALBUTEROL 2.5 MG/IPRATROPIUM 0.5 MG NEB (SCH) NEB ONE (04:15)
--- NOTE | 2017-04-08 04:44 | HHI.PR ---
Objective Vital Signs Date Time Temp Pulse Resp B/P (MAP) Pulse Ox O2 Delivery O2 Flow Rate FiO2 04/08/17 02:42 94 Nasal Cannula 4.00 04/08/17 00:00 105 04/08/17 00:00 97.6 109 18 157/90 (112) 92 04/07/17 20:00 102 04/07/17 20:00 97.7 106 18 132/72 (92) 94 04/07/17 20:00 Nasal Cannula 3.00 04/07/17 16:09 122 04/07/17 16:00 90 4.00 04/07/17 16:00 101.1 135 22 156/94 (114) 90 04/07/17 15:38 92 Nasal Cannula 4.00 04/07/17 12:00 97.9 120 18 158/74 (102) 90 04/07/17 12:00 90 Nasal Cannula 4.00 04/07/17 08:00 98.2 117 20 145/88 (107) 92 04/07/17 08:00 92 Nasal Cannula 4.00 04/07/17 08:00 115 I/O 04/07/17 04/07/17 04/07/17 04/08/17 04/08/17 04/08/17 07:00 15:00 23:00 07:00 15:00 23:00 Intake Total 999 ml 250 ml 999 ml Output Total 450 ml 350 ml Balance 549 ml -100 ml 999 ml IV Total 999 ml 250 ml 999 ml Output Urine Total 450 ml 350 ml # Voids 2 # Bowel Movements 1 1 Result Diagram: 04/07/17 0256 04/07/17 0256 Jermain Lau MD Apr 08, 2017 04:44
[2017-04-08] MEDS ORDERED: FUROSEMIDE 40 MG/4 ML VIAL IV PUSH ONE ×2 (04:45→06:45)
[2017-04-08 05:10] LABS: AUTOMATED NEUTROPHIL # 5.5 TH/MM3 (1.8-7.7); BASOPHIL % 0.2 % (0.0-2.0); HEMO FLAGS DIFF FINAL; LYMPHOCYTE # 0.1 TH/MM3 (1.0-4.8); MEAN CELL VOLUME 101.6 FL (80.0-100.0); MEAN CORPUSCULAR HEMOGLOBIN 33.8 PG (27.0-34.0); MEAN CORPUSCULAR HGB CONC 33.3 % (32.0-36.0); MONO % 4.8 % (0.0-8.0); PLATELET COUNT 222 TH/MM3 (150-450); RED BLOOD COUNT 2.56 MIL/MM3 (4.50-5.90); RED CELL DISTRIBUTION WIDTH 14.7 % (11.6-17.2); WHITE BLOOD COUNT 5.9 TH/MM3 (4.0-11.0)
[2017-04-08] MEDS ORDERED: MAGNESIUM SULFATE 1 GM PREMIX 100 ML IV ONE (05:30)
[2017-04-08] MEDS ORDERED: DILTIAZEM HCL 25 MG/5 ML VIAL IV ONE ×2 (05:30→06:30)
--- NOTE | 2017-04-08 05:38 | RADRPT ---
EXAM DATE/TIME: 04/08/2017 04:32 [facility] COMPARISON: CHEST SINGLE AP, April 05, 2017, 19:16. INDICATIONS : Shortness of breath. MEDICAL HISTORY : Carcinoma, lung. Cardiovascular disease Hypertension SURGICAL HISTORY : None. ENCOUNTER: Subsequent ACUITY: 3 days PAIN SCORE: 0/10 LOCATION: Bilateral chest FINDINGS: A single AP erect portable view of the chest was obtained and demonstrates new coarse infiltrate thro ughout the right lung. Left lung demonstrates minimal opacity. The heart size remains within normal l imits and there is no definite effusion. Overlying hardware and leads are noted. CONCLUSION: New coarse infiltrate in the right lung most characteristic of pneumonia. Willy Pantoja MD on April 08, 2017 at 5:35 Board Certified Radiologist. This report was verified electronically.
[2017-04-08 05:43] LABS: BICARBONATE 18.1 MEQ/L (21.0-32.0); POTASSIUM 3.8 MEQ/L (3.5-5.1)
[2017-04-08] MEDS ORDERED: DILTIAZEM INJ 125 MG in SODIUM CHLORIDE 0.9% INJ 100 ML IV PRN (05:45)
[2017-04-08] MEDS ORDERED: LORazepam 2 MG/ML VIAL IV PUSH ONE (05:45)
[2017-04-08] MEDS: POTASSIUM CHLOR 20 MEQ PREMIX 100 ML IV SCH ×2 (05:50→11:04)
[2017-04-08] MEDS ORDERED: RESP: IPRATROPIUM 0.5 MG/2.5 ML NEB NEB PRN (06:00)
--- NOTE | 2017-04-08 06:04 | HHI.PR ---
Addendum to Inpatient Note Addendum Reason: Additional Documentation Additional Information I was called by patient's nurse at around 4 AM because patient was having shortness of breath. Nurse reported that patient was also sound quite congested. She has held his IV fluids at that time. Patient in the previous night, was tachycardic and we did receive phone calls on him then. This tachycardia was improved with small dose of metoprolol at that time. Patient usually takes metoprolol at home. Chart reviewed. After discussion with the patient's nurse, I have placed orders for chest x-ray , BNP, nebulizer treatments, Solu-Medrol 125 mg IV and advised nurse to put patient on BiPAP. However within a few minutes, her nurse called me back because patient was at this time screaming complaining of shortness of breath and she had decided to call for the rapid response. Came to see patient at the bedside. Patient is awake and alert. He was on BiPAP at the time of my exam. During this rapid response time, he also became tachycardic which was not present initially when the nurse called me. His heart rate was 138. He was afebrile. Chest x-ray which was done at the bedside personally reviewed. Bilateral pulmonary congestion with worsening bilateral infiltrates. I have ordered for Lasix 40 mg IV stat at that time. Also advised patient's nursing to continue to monitor patient closely, and only to transfer patient to intensive care unit after receiving diuresis. Impression: Acute respiratory distress secondary to fluid overload/worsening pneumonia Tachycardia secondary to missed home doses of beta blockers, and due to acute respiratory distress. Worsening respiratory distress with tachycardia in 148 after been transferred to ICU. Multifactorial. Secondary to anxiety/movement while off BiPAP as the main cause as well. Plan: Transfer patient to ICU stat. Continue BiPAP. Input/output. Continue Lasix 40 g IV every 12 hours. Echocardiogram in a.m. Continue nebs treatments. Changed to Atrovent. Continue steroids. Cardizem 20 mg IV 1 dose. Start patient on Cardizem drip. Also started on Ativan 1 mg IV 1 dose now to help with tachycardia and anxiety. Continue current antibiotics regimen to cefepime and vanco ID consult palliative care consult to help with further clarification of goals code status discussed with patient- wants full code senior manager mmcoe consult for critical care management- transfer of care critical care 40min Jermain Lau MD 6, 2017 06:04
[2017-04-08] MEDS ORDERED: MISCELLANEOUS NURSING INFORMATION XX SCH (06:15)
[2017-04-08] MEDS ORDERED: CHLORHEXIDINE GLUCONATE 2 % 1 PACK (2 CLOTHS) TOP PRN (06:15)
[2017-04-08] MEDS ORDERED: MORPHINE SULFATE 4 MG/ML INJ ONE (06:26)
[2017-04-08 06:44] LABS: BLOOD GAS BASE EXCESS -8.4 mmol/L (-2-2); BLOOD GAS CARBOXYHEMOGLOBIN 0.8 % (0-4); BLOOD GAS HCO3 16 mmol/L (22-26); BLOOD GAS METHEMOGLOBIN 1.1 % (0-2); BLOOD GAS O2 HGB SATURATION 91 % (90-100); BLOOD GAS PCO2 31 mmHg (38-42); BLOOD GAS PO2 75 mmHg (61-120); BLOOD GAS TOTAL HGB 9.3 G/DL (12.0-16.0); CRITICAL VALUE YES; DRAW SITE LT BRACHIAL; FIO2 45 %; NUMBER OF ARTERIAL PUNCTURES 1; OXYGEN DEVICE BiPAP; STAT YES; TEMP CORR TO 98.6; VENT SETTINGS 15IPAP/5EPAP
[2017-04-08] MEDS ORDERED: CEFEPIME 2000 MG/NS 100 ML IV ONE ×2 (07:00)
[2017-04-08] MEDS ORDERED: DEXMEDETOMIDINE HCL 200 MCG/2 ML VIAL IV PUSH ONE (07:00)
[2017-04-08] MEDS: RESP: IPRATROPIUM 0.5 MG/2.5 ML NEB NEB SCH ×3 (07:29→20:58)
[2017-04-08] MEDS: PANTOPRAZOLE SODIUM 40 MG VIAL IV PUSH SCH (08:56)
[2017-04-08] MEDS: SODIUM CHLORIDE 0.9% FLUSH 10 ML FLUSH IV FLUSH SCH (08:57)
[2017-04-08] MEDS: guaiFENesin E.R. 600 MG TAB PO SCH ×2 (09:00→21:00)
[2017-04-08] MEDS: HEPARIN SODIUM - SQ 10,000 UNITS/ML VIAL SQ SCH (09:00)
[2017-04-08] MEDS: NYSTAT/DIPHENHY/LIDO MOUTHWASH (Adult) 120ML SWISH-SWAL SCH ×4 (09:00→21:00)
[2017-04-08] MEDS: DOCUSATE SODIUM 50 MG/SENNA 8.6 MG TAB PO SCH ×2 (09:00→21:00)
--- NOTE | 2017-04-08 10:45 | PD.CONS ---
Consult Service Palliative Care Consult Requested By Dr. Lau Primary Care Physician Dr. Will Reason for Consultation a. To assist with evaluation and management of symptoms including: shortness of breath, agitation, decreased oral intake, physical deconditioning b. To assist medical decision maker(s) with: better understanding of current medical conditions; weighing benefits/burdens of medical treatment options; making medical treatment decisions. HPI History of Present Illness Mr Adams is a 61 years old male with a past medical history of lung cancer, COPD, hypertension, CAD and tobacco use. Patient was diagnosed with lung cancer in November, and he underwent 5 weeks of radiation and pending chemotherapy treatment, though patient`s states that he did have 1 treatment of chemotherapy. Patient currently resides in a transitional home. Patient was accompanied by his friends to the ER on 04/05/17 complaining of shortness on breath, worsening weakness, fatigue and poor appetite for 5 days prior to ER visit. ER Course: * ECG revealed sinus tachycardia heart rate of 132, no acute ST segment elevation. * Vital signs in ER- Tmax 101.1degrees F oral, HR 133, BP 117/64, RR 29, O2 saturation 97% on 2 L NC. * Laboratory workup revealed WBC 5.7, hemoglobin 9.6, hematocrit 27.2, platelet count 206, sodium 126, potassium 3.6, BUN/creatinine 23/1.53,random glucose 108 , AST 50, ALT 41,Troponin less than 0.02, Total protein7.7, Albumin 2.5. Sepsis workup initiated. * Received 1 L normal saline IV fluid bolus, cefepime and vancomycin IV for broad-spectrum coverage of possible underlying sepsis and Tylenol 650mg po. * CT angiography revealed no PE. Patchy bilateral pneumonia, left hilar concerning for carcinoma. Mildly enlarged mediastinal lymph nodes and coronary artery calcification. * Chest X ray revealed trace right base infiltrate. * Patient was admitted for further evaluation and treatment. Patient was a Halicat on 04/08/17 due to acute respiratory distress, and tachycardia, requiring use of BiPAP. Chest X ray revealed worsening pneumonia. Patient was transferred to ICU. Clinical course complicated with persistent shortness of breath, and Afib with RVR. Critical care Dr. Valdez consulted. Infectious disease Dr. Zamora consulted for evaluation and treatment of worsening pneumonia. Palliative care consulted to address goals of care. Patient seen and examined in his room. Patient currently on BiPAP. Requested respiratory therapist to switch patient temporarily to a non-rebreather to facilitate conversation with patient. Patient sleeping but easily arousable. Lethargic and oriented to person, place and situation. Patient denies pain at this time. He is requesting coffee or orange juice. Patient stating that his mouth is dry and he is thirsty. Laboratory workup today revealing WBC 5.9, hemoglobin 8.7, hematocrit 26.0, platelet count 222, sodium 135, potassium 3.8, BUN/creatinine 10/0.99, BNP 1262. Currently afebrile. SBP 80s-160s. O2 saturation high 90s on BiPAP-FiO2 55%. Obtained psychosocial history and medical history. Patient appears to have insight and judgement of his condition. Addressed code status, discussed benefits and limitations of CPR given patient`s multiple ongoing comorbidities. Patient verbalized that,"I would want to be a DNR considering that I have lung cancer that may get worse and I don`t have anyone to take care of me." Patient indicated that he has a DNR at Dr. Oh office. Patient does not want to be resuscitated or intubated. Discussed advance directives and patient was not sure if he signed a living will or health care surrogate. He stated that if he is incapacitated he would like his long time friend Kay Rizvi to be his health care surrogate and his cousin Dahiana Mayorga to be the alternate HCS. Assisted patient with completing health care surrogate form. Witnessed by bedside RN Sabra Pike and myself. Telephone call made to Dr. Oh office -left message (by Sade Gilliam). Telephone call to Kay ([facility]) -Left voice mail with contact information for Palliative care. Unable to leave message for alternate HCS. Case discussed with Dr. Mayo Valdez and bedside RN . Function/Cognitive Trajectory Patient lives in a transitional home. Patient was independent of all his ADLs, ambulatory and able to make his needs known. Patient endorses being able to ambulate short distances only due to increased shortness of breath. Patient states that he has lost weight since he was diagnosed with lung cancer though he is not able to state how much. Patient stated that during radiation therapy he had problems with insomnia and that "it was a very confusing time". Patient could not elaborate further what he meant with that statement. He states that he has to provide food for himself or he gets "underspiced" soup that he rarely eats. Reports that of late his appetite has been poor. . Review of Systems Constitutional: COMPLAINS OF: Fatigue, Fever, Weight loss, Change in appetite, Generalized weakness Eyes: DENIES: Eye inflammation Ears, nose, mouth, throat: COMPLAINS OF: Throat pain, DENIES: Hearing loss Respiratory: COMPLAINS OF: Shortness of breath, DENIES: Cough, Sputum production Cardiovascular: COMPLAINS OF: Dyspnea on Exertion, DENIES: Lower Extremity Edema Gastrointestinal: DENIES: Nausea, Vomiting, Difficulty Swallowing Hematologic/Lymphatics: COMPLAINS OF: Bruising Psychiatric: COMPLAINS OF: Anxiety Past Family Social History Coded Allergies: No Known Allergies (Verified Allergy, Unknown, 04/05/17) Past Medical History Lung CA,s/p radiation HTN CAD COPD Tobacco Abuse . Past Surgical History -Atherectomy of the left anterior descending with a bare-metal stent in 2013. -Abdominal Surgery . Reported Medications Centrum (Multiple Vitamins W/ Minerals) 1 Chew 1 Tab CHEW DAILY B12 (Cyanocobalamin) 1,000 Mcg Tab Anoro Ellipta Inh (Umeclidinium/Vilanterol) 62.5-25 Mcg/Act Aero 1 Puff INH Lovastatin 10 Mg Tab 10 Mg PO DAILY Clopidogrel (Clopidogrel Bisulfate) 75 Mg Tab 75 Mg PO DAILY Furosemide 20 Mg Tab 20 Mg PO DAILY Klor-Con 8 (Potassium Chloride) 8 Meq Tab 8 Meq PO TID Tamsulosin (Tamsulosin HCl) 0.4 Mg Cap 0.4 Mg PO BID Metoprolol Tartrate 25 Mg Tab 25 Mg PO BID Lorcet 10/650 (Acetaminophen/Hydrocodone Bitart) Tab 1 Tab PO Q4HPRN . Current Medications Medications (Trade) Dose Ordered Sig/[place]enton Route Start Time Stop Time Status Last Admin Pharmacy Profile Note 0 ml @ 0 mls/hr UNSCH OTHER 04/05/17 22:00 (NS Flush) 2 ml UNSCH PRN IV FLUSH 04/05/17 22:00 (NS Flush) 2 ml BID IV FLUSH 04/06/17 09:00 04/08/17 08:57 (Zofran Inj) 4 mg Q6H PRN IVP 04/05/17 22:00 (Tylenol) 650 mg Q6H PRN PO 04/05/17 22:00 04/07/17 15:39 (Mohawk 5-325 Mg) 1 tab Q4H PRN PO 04/05/17 22:00 (Dilaudid Pf Inj) 1 mg Q3H PRN IV PUSH 04/05/17 22:00 (Nata-Colace) 1 tab BID PO 04/06/17 09:00 04/07/17 20:14 (Milk Of Magnesia Liq) 30 ml Q12H PRN PO 04/05/17 22:00 (Senokot) 17.2 mg Q12H PRN PO 04/05/17 22:00 (Dulcolax Supp) 10 mg DAILY PRN RECTAL 04/05/17 22:00 (Lactulose Liq) 30 ml DAILY PRN PO 04/05/17 22:00 (Mucinex Er) 600 mg BID PO 04/06/17 09:00 04/07/17 20:14 (Heparin Inj) 5,000 units Q12HR SQ 04/06/17 09:00 04/07/17 20:15 Vancomycin HCl 1000 mg/Sodium Chloride 250 ml @ 250 mls/hr Q18H IV 04/06/17 14:00 04/08/17 01:14 (Magic Mouthwash Adult Liq) 10 ml QID SWISH-SWAL 04/06/17 13:00 04/07/17 20:14 (SoluMEDROL INJ) 40 mg Q6H IV PUSH 04/07/17 15:00 04/08/17 08:56 (Protonix Inj) 40 mg DAILY IV PUSH 04/07/17 14:45 04/08/17 08:56 Diltiazem HCl 125 mg/Sodium Chloride 125 ml @ 5 mls/hr TITRATE PRN IV 04/08/17 05:45 04/08/17 06:04 (Atrovent Neb) 0.5 mg Q6HR NEB NEB 04/08/17 10:00 04/08/17 07:29 (Atrovent Neb) 0.5 mg Q2HR NEB PRN NEB 04/08/17 06:00 (Lasix Inj) 40 mg BID@09,18 IV PUSH 04/08/17 09:00 Miscellaneous Information 1 Q361D XX 04/08/17 06:15 (Chlorhexidine 2% Cloth) 3 pack Taper DAILY@04 TOP 04/09/17 04:00 04/05/18 03:59 (Chlorhexidine 2% Cloth) 3 pack UNSCH PRN TOP 04/08/17 06:15 (Morphine Inj) 4 mg Q4HR PRN IV PUSH 04/08/17 06:30 Cefepime HCl 2000 mg/Sodium Chloride 100 ml @ 200 mls/hr Q8H IV 04/08/17 16:00 Dexmedetomidine HCl 200 mcg/ Sodium Chloride 52 ml @ 2.9 mls/hr TITRATE PRN IV 04/08/17 07:00 Miscellaneous Information SPECIFIC LAB TO BE DRAWN:VANCOMYCIN TROUGH DATE TO... ONCE ONCE .XX 04/11/17 01:45 04/11/17 01:46 Family History Father of a heart attack at 52 years Mother from CHF complications Sister in 1970 from a motor vehicle accident . Substance Use Tobacco:Yes-still smokes Alcohol: Yes- Occasional alcohol (states that whenever he is able to go out of the transitional home he drinks alcohol). Prescription med abuse: No Illicits:Hx of substance abuse-Marijuana (patient states it has been many years ago) . Psychosocial History Patient was born and raised in [place]. He left [place] the age of 20. Patient moved to [place] in 1975. Patient has a 2 years college degree in [employer]. 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 Patient was and twice. He never had children. . Spiritual/Cultural Factors No evangelical affiliation . Health Care Surrogate: Copy in medical record Date completed: 04/08/2017- [facility] . Health Care Surrogate(s): HCS- (Long time friend-15 yrs) Kay Rizvi [phone] Alternate [facility]- Cousin- Dahiana Mayorga [phone] . Today's verbally stated goals: Patient does not want to be resuscitated or intubated, but wants to be treated. . Ethical and Legal Issues No ethical issues identified at this time. Patient signed HCS form today. . Physical Exam Vital Signs Date Time Temp Pulse Resp B/P (MAP) Pulse Ox O2 Delivery O2 Flow Rate FiO2 04/08/17 07:29 91 45 04/08/17 06:15 95 45 04/08/17 06:04 139 139/80 04/08/17 05:16 92 45 04/08/17 04:47 93 35 04/08/17 04:42 93 BiPAP 35 04/08/17 04:00 97.2 138 30 162/94 (116) 91 04/08/17 04:00 Nasal Cannula 4.00 04/08/17 02:42 94 Nasal Cannula 4.00 04/08/17 00:00 105 04/08/17 00:00 97.6 109 18 157/90 (112) 92 04/07/17 20:00 102 04/07/17 20:00 97.7 106 18 132/72 (92) 94 04/07/17 20:00 Nasal Cannula 3.00 04/07/17 16:09 122 04/07/17 16:00 90 4.00 04/07/17 16:00 101.1 135 22 156/94 (114) 90 04/07/17 15:38 92 Nasal Cannula 4.00 04/07/17 12:00 97.9 120 18 158/74 (102) 90 04/07/17 12:00 90 Nasal Cannula 4.00 Exam CONSTITUTIONAL/GENERAL: This is an ill-looking patient, who looks older than stated age.Patient looks pale. Currently in mild respiratory distress. TUBES/LINES/DRAINS:BiPAP,SCDs, PIVs, FC SKIN: Pale. Ecchymoses on upper extremities. No wounds seen anteriorly. Skin temperature appropriate. Not diaphoretic. HEAD: Atraumatic. Normocephalic. EYES: Pupils equal and round and reactive. Extraocular motions intact. No injection or drainage. Fundi not examined. ENT: Hearing grossly normal. Nose without bleeding or purulent drainage. Moist oral mucosa NECK: Trachea midline. Supple, nontender. CARDIOVASCULAR: Irregular rate and rhythm without murmurs, gallops, or rubs. No JVD. Peripheral pulses symmetric. On a cardizem gtt RESPIRATORY/CHEST: Symmetric,mildly labored respirations. Rhonchi to auscultation. Breath sounds equal bilaterally. No wheezes. GASTROINTESTINAL: Abdomen soft, non-tender, nondistended. No guarding. Bowel sounds present. GENITOURINARY: Without palpable bladder distension. Dockery catheter in place. MUSCULOSKELETAL: Extremities without clubbing, cyanosis, or edema. No joint tenderness or effusion noted. No calf tenderness. No mottling or clubbing. NEUROLOGICAL: Lethargic and oriented to self, place and situation. Motor and sensory grossly within normal limits. Follows commands. Moves all extremities. PSYCHIATRIC: Currently Calm. No obvious anxiety/depression. no apparent hallucinations or other psychotic thought process. . Diagnostic Tests Laboratory Laboratory Tests Test 04/05/17 19:05 04/06/17 07:30 04/06/17 20:34 04/07/17 01:02 White Blood Count 5.7 TH/MM3 (4.0-11.0) 5.5 TH/MM3 (4.0-11.0) Red Blood Count 2.77 MIL/MM3 (4.50-5.90) 2.37 MIL/MM3 (4.50-5.90) Hemoglobin 9.6 GM/DL (13.0-17.0) 8.1 GM/DL (13.0-17.0) 7.7 GM/DL (13.0-17.0) Hematocrit 27.2 % (39.0-51.0) 23.9 % (39.0-51.0) 22.5 % (39.0-51.0) Mean Corpuscular Volume 98.3 FL (80.0-100.0) 100.9 FL (80.0-100.0) Mean Corpuscular Hemoglobin 34.8 PG (27.0-34.0) 34.2 PG (27.0-34.0) Mean Corpuscular Hemoglobin Concent 35.5 % (32.0-36.0) 33.9 % (32.0-36.0) Red Cell Distribution Width 14.4 % (11.6-17.2) 14.2 % (11.6-17.2) Platelet Count 206 TH/MM3 (150-450) 187 TH/MM3 (150-450) Mean Platelet Volume 7.6 FL (7.0-11.0) 7.8 FL (7.0-11.0) Neutrophils (%) (Auto) 71.7 % (16.0-70.0) 79.1 % (16.0-70.0) Lymphocytes (%) (Auto) 2.7 % (9.0-44.0) 2.5 % (9.0-44.0) Monocytes (%) (Auto) 25.5 % (0.0-8.0) 17.8 % (0.0-8.0) Eosinophils (%) (Auto) 0.1 % (0.0-4.0) 0.5 % (0.0-4.0) Basophils (%) (Auto) 0.0 % (0.0-2.0) 0.1 % (0.0-2.0) Neutrophils # (Auto) 4.1 TH/MM3 (1.8-7.7) 4.4 TH/MM3 (1.8-7.7) Lymphocytes # (Auto) 0.2 TH/MM3 (1.0-4.8) 0.1 TH/MM3 (1.0-4.8) Monocytes # (Auto) 1.5 TH/MM3 (0-0.9) 1.0 TH/MM3 (0-0.9) Eosinophils # (Auto) 0.0 TH/MM3 (0-0.4) 0.0 TH/MM3 (0-0.4) Basophils # (Auto) 0.0 TH/MM3 (0-0.2) 0.0 TH/MM3 (0-0.2) CBC Comment DIFF FINAL DIFF FINAL Differential Comment Prothrombin Time 11.2 SEC (9.8-11.6) Prothromb Time International Ratio 1.1 RATIO Activated Partial Thromboplast Time 29.7 SEC (24.3-30.1) 35.6 SEC (24.3-30.1) Blood Urea Nitrogen 23 MG/DL (7-18) 17 MG/DL (7-18) Creatinine 1.53 MG/DL (0.60-1.30) 0.99 MG/DL (0.60-1.30) Random Glucose 108 MG/DL (74-106) 98 MG/DL (74-106) Total Protein 7.7 GM/DL (6.4-8.2) 6.0 GM/DL (6.4-8.2) Albumin 2.5 GM/DL (3.4-5.0) 2.0 GM/DL (3.4-5.0) Calcium Level 9.2 MG/DL (8.5-10.1) 8.6 MG/DL (8.5-10.1) Magnesium Level 1.3 MG/DL (1.5-2.5) Alkaline Phosphatase 125 U/L (45-117) 106 U/L (45-117) Aspartate Amino Transf (AST/SGOT) 50 U/L (15-37) 39 U/L (15-37) Alanine Aminotransferase (ALT/SGPT) 41 U/L (12-78) 30 U/L (12-78) Total Bilirubin 0.9 MG/DL (0.2-1.0) 0.6 MG/DL (0.2-1.0) Sodium Level 126 MEQ/L (136-145) 132 MEQ/L (136-145) Potassium Level 3.6 MEQ/L (3.5-5.1) 3.2 MEQ/L (3.5-5.1) 3.8 MEQ/L (3.5-5.1) Chloride Level 94 MEQ/L (98-107) 103 MEQ/L (98-107) Carbon Dioxide Level 22.2 MEQ/L (21.0-32.0) 19.8 MEQ/L (21.0-32.0) Anion Gap 10 MEQ/L (5-15) 9 MEQ/L (5-15) Estimat Glomerular Filtration Rate 46 ML/MIN (>89) 77 ML/MIN (>89) Lactic Acid Level 1.8 mmol/L (0.4-2.0) Troponin I LESS THAN 0.02 NG/ML Test 04/07/17 02:56 04/07/17 12:45 04/08/17 01:30 04/08/17 04:58 White Blood Count 6.7 TH/MM3 (4.0-11.0) 5.9 TH/MM3 (4.0-11.0) Red Blood Count 2.27 MIL/MM3 (4.50-5.90) 2.56 MIL/MM3 (4.50-5.90) Hemoglobin 7.9 GM/DL (13.0-17.0) 8.7 GM/DL (13.0-17.0) Hematocrit 22.8 % (39.0-51.0) 26.0 % (39.0-51.0) Mean Corpuscular Volume 100.4 FL (80.0-100.0) 101.6 FL (80.0-100.0) Mean Corpuscular Hemoglobin 34.8 PG (27.0-34.0) 33.8 PG (27.0-34.0) Mean Corpuscular Hemoglobin Concent 34.7 % (32.0-36.0) 33.3 % (32.0-36.0) Red Cell Distribution Width 14.4 % (11.6-17.2) 14.7 % (11.6-17.2) Platelet Count 183 TH/MM3 (150-450) 222 TH/MM3 (150-450) Mean Platelet Volume 7.7 FL (7.0-11.0) 7.8 FL (7.0-11.0) Neutrophils (%) (Auto) 83.9 % (16.0-70.0) 93.0 % (16.0-70.0) Lymphocytes (%) (Auto) 4.1 % (9.0-44.0) 2.0 % (9.0-44.0) Monocytes (%) (Auto) 11.0 % (0.0-8.0) 4.8 % (0.0-8.0) Eosinophils (%) (Auto) 0.8 % (0.0-4.0) 0.0 % (0.0-4.0) Basophils (%) (Auto) 0.2 % (0.0-2.0) 0.2 % (0.0-2.0) Neutrophils # (Auto) 5.6 TH/MM3 (1.8-7.7) 5.5 TH/MM3 (1.8-7.7) Lymphocytes # (Auto) 0.3 TH/MM3 (1.0-4.8) 0.1 TH/MM3 (1.0-4.8) Monocytes # (Auto) 0.7 TH/MM3 (0-0.9) 0.3 TH/MM3 (0-0.9) Eosinophils # (Auto) 0.1 TH/MM3 (0-0.4) 0.0 TH/MM3 (0-0.4) Basophils # (Auto) 0.0 TH/MM3 (0-0.2) 0.0 TH/MM3 (0-0.2) CBC Comment DIFF FINAL DIFF FINAL Differential Comment Blood Urea Nitrogen 10 MG/DL (7-18) 10 MG/DL (7-18) Creatinine 0.83 MG/DL (0.60-1.30) 0.99 MG/DL (0.60-1.30) Random Glucose 107 MG/DL (74-106) 202 MG/DL (74-106) Calcium Level 8.3 MG/DL (8.5-10.1) 8.6 MG/DL (8.5-10.1) Magnesium Level 1.5 MG/DL (1.5-2.5) Sodium Level 134 MEQ/L (136-145) 135 MEQ/L (136-145) Potassium Level 3.8 MEQ/L (3.5-5.1) 3.8 MEQ/L (3.5-5.1) Chloride Level 107 MEQ/L (98-107) 106 MEQ/L (98-107) Carbon Dioxide Level 21.2 MEQ/L (21.0-32.0) 18.1 MEQ/L (21.0-32.0) Anion Gap 6 MEQ/L (5-15) 11 MEQ/L (5-15) Estimat Glomerular Filtration Rate 94 ML/MIN (>89) 77 ML/MIN (>89) Prealbumin LESS THAN 3 MG/DL (20-40) Urine Color YELLOW (YELLW/STRAW) Urine Turbidity CLEAR (CLEAR) Urine pH 6.0 (5.0-8.5) Urine Specific [place] 1.017 (1.002-1.035) Urine Protein 30 mg/dL (NEG-TRACE) Urine Glucose (UA) NEG mg/dL (NEG) Urine Ketones NEG mg/dL (NEG) Urine Occult Blood NEG (NEG) Urine Nitrite NEG (NEG) Urine Bilirubin NEG (NEG) Urine Urobilinogen LESS THAN 2.0 MG/DL (LESS Urine Leukocyte Esterase NEG (NEG) Urine RBC 1 /hpf (0-3) Urine WBC 1 /hpf (0-5) Urine Squamous Epithelial Cells <1 /hpf (0-5) Urine Mucus FEW /lpf (OCC) Microscopic Urinalysis Comment CATH-CULT NOT IND Vancomycin Level Trough 16.9 MCG/ML (5.0-10.0) B-Type Natriuretic Peptide 1262 PG/ML (0-100) Test 04/08/17 06:30 Blood Gas Puncture Site LT BRACHIAL Blood Gas Patient Temperature 98.6 Blood Gas HCO3 16 mmol/L (22-26) Blood Gas Base Excess -8.4 mmol/L (-2-2) Blood Gas Oxygen Saturation 91 % (90-100) Arterial Blood pH 7.34 (7.380-7.420) Arterial Blood Partial Pressure CO2 31 mmHg (38-42) Arterial Blood Partial Pressure O2 75 mmHg (61-120) Arterial Blood Oxygen Content 12.0 Vol % (12.0-20.0) Arterial Blood Carboxyhemoglobin 0.8 % (0-4) Arterial Blood Methemoglobin 1.1 % (0-2) Blood Gas Hemoglobin 9.3 G/DL (12.0-16.0) Oxygen Delivery Device BiPAP Blood Gas Ventilator Setting 15IPAP/5EPAP Blood Gas Inspired Oxygen 45 % Result Diagram: 04/08/17 0458 04/08/17 0458 Microbiology Microbiology Date/Time Source Procedure Growth Status 04/05/17 19:05 Blood Peripheral Aerobic Blood Culture - Preliminary NO GROWTH IN 2 DAYS Resulted 04/05/17 19:05 Blood Peripheral Anaerobic Blood Culture - Preliminary NO GROWTH IN 2 DAYS Resulted 04/05/17 18:50 Blood Peripheral Aerobic Blood Culture - Preliminary NO GROWTH IN 2 DAYS Resulted 04/05/17 18:50 Blood Peripheral Anaerobic Blood Culture - Preliminary NO GROWTH IN 2 DAYS Resulted 04/07/17 13:23 Sputum Expectorated Sputum Gram Stain Pending Received 04/07/17 13:23 Sputum Expectorated Sputum Sputum Culture Pending Received 04/06/17 00:00 Urine Random Urine Legionella Antigen - Final PRESUMPTIVE NEGATIVE FOR LEGIONELLA P... Complete 04/06/17 00:00 Urine Random Urine Streptococcus pneumoniae Antigen (M - Final PRESUMPTIVE NEGATIVE FOR STREPTOCOCCU... Complete Imaging Last Impressions Chest X-Ray 04/08/17 0000 Signed Impressions: Service Date/Time: Saturday, April 08, 2017 04:32 - CONCLUSION: New coarse infiltrate in the right lung most characteristic of pneumonia. Willy Pantoja MD CT Angiography 04/05/17 0000 Signed Impressions: Service Date/Time: Wednesday, April 05, 2017 20:05 - CONCLUSION: 1. No pulmonary embolus. 2. Patchy bilateral pneumonia as above. 3. Vague left hilar mass concerning for carcinoma. 4. Upper limits of normal to mildly enlarged mediastinal lymph nodes. 5. Coronary artery calcification. Dmitri Manuel MD Patient/Family Conference Family Conference Location: Bedside Issues Discussed: * Palliative care role, purpose, approach * Additional medical, psychosocial, and spiritual history * Patients general health, functional status, and cognitive changes in the months leading up to the current hospitalization * Patient/family understanding of the current medical problems * Patient/family understanding of prognosis * Patients goals of care as best understood from advance directives and/or conversations and/or values * Current medical treatment options and benefits/burdens of those options * Likely scenarios comparing ongoing aggressive care with a transition to comfort measures only * Questions answered to the best of my ability * Palliative care contact information provided Assessment and Plan Disease Oriented Problem List: (1) Sepsis (2) Lung cancer (3) Bilateral pneumonia (4) Severe protein-calorie malnutrition (5) Tobacco use (6) Sore throat Symptom Scale: (1) Shortness of breath 0-10 Scale: Unable to quantify Comment: Multifactorial. Patient has a history of lung cancer. Reports that he has been having persistent dyspnea with exertion at home, unable to ambulate for a long distance due to dyspnea. Chest x-ray showed a trace right base infiltrate. Came in with c/o shortness of breath. Currently on BiPAP 55%. Dyspneic with conversation. Patient started on antibiotics. Patient received Lasix. Patient is on solumedrol 40mg q 6 hrs, Guaifenesin 600mg BID. . (2) Decreased oral intake 0-10 Scale: Unable to quantify Comment: Patient reporting that he has had poor appetite. . (3) Agitation Comment: Patient has a history of COPD, he has worsening respiratory status and was getting agitated. (4) Physical deconditioning 0-10 Scale: Unable to quantify Pertinent Non-Medical Issues Psychosocial:Patient was born and raised in [place]. He left [place] at the age of 20. Patient moved to [place] in 1975. Patient has a 2 years college degree in [employer]. Patient worked for an [employer] company as well as a [employer] company. Patient was and twice. He never had children. Spiritual:No evangelical affiliation Legal: Patient signed HCS form today. Ethical issues impacting care: None identified at this time. . Important Contacts [facility]- (Long time friend-15 yrs) Kay Rizvi [phone] Alternate [facility]- Cousin- Dahiana Mayorga [phone] . Prognosis Mr Adams is a 61 years old male with a past medical history of lung cancer, COPD, hypertension, CAD and tobacco use. Patient was diagnosed with lung cancer in November, and he underwent 5 weeks of radiation and pending chemotherapy treatment, though patient`s states that he did have 1 treatment of chemotherapy. Patient currently resides in a transitional home. Patient was accompanied by his friends to the ER on 04/05/17 complaining of shortness on breath, worsening weakness, fatigue and poor appetite for 5 days prior to ER visit. Clinical course complicated with persistent shortness of breath, and Afib with RVR. Given ongoing comorbidities, patient remains at risk for complications, deterioration and decline. . Code Status: No Code Plan PLAN: Legal decision maker: Patient appears to have insight and judgement of his condition at this time and is able to make his own medical decisions. In the event that he is incapacitated, patient designated his long time friend Kay Rizvi as his healthcare surrogate and his cousin Dahiana Mayorga and his alternate HCS. Goals: Aggressive short of no code. Addressed code status, discussed benefits and limitations of CPR given patient` s multiple ongoing comorbidities. Patient verbalized that,"I would want to be a DNR considering that I have lung cancer that may get worse and I don`t have anyone to take care of me." Patient indicated that he has a DNR at Dr. Oh office. Patient does not want to be resuscitated or intubated. Discussed advance directives and patient was not sure if he signed a living will or health care surrogate. He stated that if he is incapacitated he would like his long time friend Kay Rizvi to be his health care surrogate and his cousin Dahiana Mayorga to be the alternate HCS. Assisted patient with completing health care surrogate form. CODE STATUS: DNR/DNI SYMPTOMS: * Shortness of breath: Multifactorial. Patient has a history of lung cancer. Reports that he has been having persistent dyspnea with exertion at home, unable to ambulate for a long distance due to dyspnea. Chest x-ray showed a trace right base infiltrate. Came in with c/o shortness of breath. Currently on BiPAP 55%. Dyspneic with conversation. Patient started on antibiotics. Patient received Lasix. Patient is on solumedrol 40mg q 6 hrs, Guaifenesin 600mg BID. * Decreased PO Intake: Multifactorial. Patient states that he has to provide himself with food whilst living in a transitional home and unfortunately he does not like what they serve him. Patient also endorsing sore throat. Patient reporting that he has had poor appetite. Currently reporting being very thirsty and asking for orange juice, coffee. Recommending swallow evaluation. * Agitation: Patient has a history of COPD, he has worsening respiratory status and was getting agitated. Patient started on a Precedex infusion. Currently calm. * Physical deconditioning : Multifactorial. Patient lives in a transitional home and he reports that he has to provide food for himself otherwise he does not like what they serve. Patient c/o of unable to ambulate for long distances due to increased shortness of breath. He continues to smoke cigarettes despite SOB. Patient has muscle wasting and reports that he has significantly lost weight since he was diagnosed with lung cancer. Patient also endorsing sore throat. Patient may benefit from physical therapy if goals do not change though it can be difficulty for him to fully participate due to dyspnea. Total protein= 6.0, Albumin=2.0 Palliative care will continue to follow the patient during hospital course as condition evolves, to assist patient/decision-maker with understanding of their medical conditions, weighing benefits/burdens of treatment options, for clarification of goals of treatment. Additionally will assist with any symptoms of palliative concern Thank you for the opportunity to participate in the care of Mr. Adams. Attestation To help prompt me to consider important information that might be impacting today's encounter and assessment, information from prior notes written by myself or my colleagues may have been "brought forward" into today's note. My signature on this note, however, is an attestation that I personally performed the exam, history, and/or decision-making noted today, and, unless otherwise indicated, the interactions with patient, family, and staff as well as the review of records all occurred today. I also attest that the listed assessment and stated plan reflect my best clinical judgment today based on the combination of historical information, prior notes, and today's exam/ interactions. When time spent is documented, it refers only to time spent today by the signer, or if indicated, combined time spent today by collaborating physician/nurse practitioner. . Randa Tenorio Apr 08, 2017 10:45
[2017-04-08] MEDS: DEXMEDETOMIDINE INJ 200 MCG in SODIUM CHLORIDE 0.9% INJ 50 ML IV PRN (11:03)
[2017-04-08] MEDS: FUROSEMIDE 40 MG/4 ML VIAL IV PUSH SCH ×2 (11:05→17:29)
--- NOTE | 2017-04-08 11:17 | PD.CONS ---
History of Present Illness Service Infectious disease Consult Requested By Dr Lau Reason for Consult Evaluate patient with worsening pneumonia Primary Care Physician Unknown Diagnoses: History of Present Illness Patient seen and examined. Records reviewed. Patient is a 61-year-old male, presented to the hospital complaining of one- week history of generalized weakness, as well as worsening shortness of breath. Denies any significant cough or sputum production. He was diagnosed to have lung cancer November 2016, and has received about 5 weeks of radiation therapy. He has not had any nausea or vomiting. Denies any chest pain. His initial chest x -ray showed a trace right base infiltrate. Patient was started on antibiotics for pneumonia. Late last night cover marker today, patient had deterioration with increasing shortness of breath and increasing oxygen requirement. His chest x-ray showed worsening infiltrates on the right side. He was transferred to the intensive care unit for closer monitoring. Patient has been requiring BiPAP for oxygenation. Patient has had fevers up to 101. Blood cultures are negative so far. Urine for Legionella and pneumococcal antigen are negative. Infectious disease consultation has been requested to evaluate the patient with worsening pneumonia. Review of Systems Constitutional: COMPLAINS OF: Fever, Chills Eyes: DENIES: Eye pain Ears, nose, mouth, throat: DENIES: Nasal discharge, Oral lesions, Throat pain, Ear Pain Respiratory: COMPLAINS OF: Cough, Shortness of breath, DENIES: Sputum production Cardiovascular: COMPLAINS OF: Palpitations, Dyspnea on Exertion, DENIES: Chest pain, Syncope Gastrointestinal: DENIES: Abdominal pain, Diarrhea, Nausea, Vomiting, Difficulty Swallowing Genitourinary: DENIES: Urgency, Hematuria, Dysuria Musculoskeletal: DENIES: Joint pain, Joint Swelling Integumentary: DENIES: Rash Hematologic/lymphatic: DENIES: Lymphadenopathy Immunologic/allergic: DENIES: Urticaria Neurologic: DENIES: Headache, Localized weakness Psychiatric: DENIES: Hallucinations Past Family Social History Allergies: Coded Allergies: No Known Allergies (Verified Allergy, Unknown, 04/05/17) Past Medical History Lung CA Hypertension CAD COPD Tobacco Abuse Past Surgical History Abdominal surgery Reported Medications I attest that I obtained, updated or reviewed the home and current medications. Reported Meds & Active Scripts Active Reported Centrum (Multiple Vitamins W/ Minerals) 1 Chew 1 Tab CHEW DAILY B12 (Cyanocobalamin) 1,000 Mcg Tab Anoro Ellipta Inh (Umeclidinium/Vilanterol) 62.5-25 Mcg/Act Aero 1 Puff INH Lovastatin 10 Mg Tab 10 Mg PO DAILY Clopidogrel (Clopidogrel Bisulfate) 75 Mg Tab 75 Mg PO DAILY Furosemide 20 Mg Tab 20 Mg PO DAILY Klor-Con 8 (Potassium Chloride) 8 Meq Tab 8 Meq PO TID Tamsulosin (Tamsulosin HCl) 0.4 Mg Cap 0.4 Mg PO BID Metoprolol Tartrate 25 Mg Tab 25 Mg PO BID Lorcet 10/650 (Acetaminophen/Hydrocodone Bitart) Tab 1 Tab PO Q4HPRN FOR PAIN No Current Meds (Miscellaneous Medication) Misc Active Ordered Medications Current Medications Medications (Trade) Dose Ordered Sig/[place] Route Start Time Stop Time Status Last Admin Pharmacy Profile Note 0 ml @ 0 mls/hr UNSCH OTHER 04/05/17 22:00 (NS Flush) 2 ml UNSCH PRN IV FLUSH 04/05/17 22:00 (NS Flush) 2 ml BID IV FLUSH 04/06/17 09:00 04/08/17 08:57 (Zofran Inj) 4 mg Q6H PRN IVP 04/05/17 22:00 (Tylenol) 650 mg Q6H PRN PO 04/05/17 22:00 04/07/17 15:39 ([place] 5-325 Mg) 1 tab Q4H PRN PO 04/05/17 22:00 (Dilaudid Pf Inj) 1 mg Q3H PRN IV PUSH 04/05/17 22:00 (Nata-Colace) 1 tab BID PO 04/06/17 09:00 04/07/17 20:14 (Milk Of Magnesia Liq) 30 ml Q12H PRN PO 04/05/17 22:00 (Senokot) 17.2 mg Q12H PRN PO 04/05/17 22:00 (Dulcolax Supp) 10 mg DAILY PRN RECTAL 04/05/17 22:00 (Lactulose Liq) 30 ml DAILY PRN PO 04/05/17 22:00 (Mucinex Er) 600 mg BID PO 04/06/17 09:00 04/07/17 20:14 (Heparin Inj) 5,000 units Q12HR SQ 04/06/17 09:00 04/07/17 20:15 Vancomycin HCl 1000 mg/Sodium Chloride 250 ml @ 250 mls/hr Q18H IV 04/06/17 14:00 04/08/17 01:14 (Magic Mouthwash Adult Liq) 10 ml QID SWISH-SWAL 04/06/17 13:00 04/07/17 20:14 (SoluMEDROL INJ) 40 mg Q6H IV PUSH 04/07/17 15:00 04/08/17 08:56 (Protonix Inj) 40 mg DAILY IV PUSH 04/07/17 14:45 04/08/17 08:56 Diltiazem HCl 125 mg/Sodium Chloride 125 ml @ 5 mls/hr TITRATE PRN IV 04/08/17 05:45 04/08/17 06:04 (Atrovent Neb) 0.5 mg Q6HR NEB NEB 04/08/17 10:00 04/08/17 07:29 (Atrovent Neb) 0.5 mg Q2HR NEB PRN NEB 04/08/17 06:00 (Lasix Inj) 40 mg BID@,18 IV PUSH 04/08/17 09:00 Miscellaneous Information 1 Q361D XX 04/08/17 06:15 (Chlorhexidine 2% Cloth) 3 pack Taper DAILY@04 TOP 04/09/17 04:00 04/05/18 03:59 (Chlorhexidine 2% Cloth) 3 pack UNSCH PRN TOP 04/08/17 06:15 (Morphine Inj) 4 mg Q4HR PRN IV PUSH 04/08/17 06:30 Cefepime HCl 2000 mg/Sodium Chloride 100 ml @ 200 mls/hr Q8H IV 04/08/17 16:00 Dexmedetomidine HCl 200 mcg/ Sodium Chloride 52 ml @ 2.9 mls/hr TITRATE PRN IV 04/08/17 07:00 Miscellaneous Information SPECIFIC LAB TO BE DRAWN:VANCOMYCIN TROUGH DATE TO... ONCE ONCE .XX 04/11/17 01:45 04/11/17 01:46 Family History Unremarkable Social History Lives alone Occasional alcohol. Positive for tobacco. Negative drugs. No pets Physical Exam Vital Signs Vital Signs Date Time Temp Pulse Resp B/P (MAP) Pulse Ox O2 Delivery O2 Flow Rate FiO2 04/08/17 09:46 99 55 04/08/17 08:00 97.6 91 23 87/50 (62) 96 04/08/17 07:29 91 45 04/08/17 06:15 95 45 04/08/17 06:04 139 139/80 04/08/17 05:16 92 45 04/08/17 04:47 93 35 04/08/17 04:42 93 BiPAP 35 04/08/17 04:00 97.2 138 30 162/94 (116) 91 04/08/17 04:00 Nasal Cannula 4.00 04/08/17 02:42 94 Nasal Cannula 4.00 04/08/17 00:00 105 04/08/17 00:00 97.6 109 18 157/90 (112) 92 04/07/17 20:00 102 04/07/17 20:00 97.7 106 18 132/72 (92) 94 04/07/17 20:00 Nasal Cannula 3.00 04/07/17 16:09 122 04/07/17 16:00 90 4.00 04/07/17 16:00 101.1 135 22 156/94 (114) 90 04/07/17 15:38 92 Nasal Cannula 4.00 04/07/17 12:00 97.9 120 18 158/74 (102) 90 04/07/17 12:00 90 Nasal Cannula 4.00 Physical Exam GENERAL: Patient is a thin, well-developed male, awake and alert, not in respiratory distress. SKIN: Cool and dry. No generalized rash, no ecchymoses and no evidence of embolic lesions. HEAD: Atraumatic. Normocephalic. No temporal wasting, or tenderness. EYES: [place] conjunctiva. No petechia or hemorrhage. Pupils equal, round and reactive to light. Extraocular movements full and intact. No scleral icterus. No injection or drainage. EARS, NOSE AND THROAT: Nose without bleeding or purulent nasal discharge. No sinus tenderness. Dry oral mucosa, no oral lesions noted. No exudate. No oral thrush. NECK: Trachea midline. Supple and not tender, no meningeal signs CARDIOVASCULAR: Regular rate and rhythm. No murmurs, rubs or gallops heard RESPIRATORY: Coarse BS bilaterally, decreased on R side. No rales, wheezing or rhonchi ABDOMEN: Soft, non-tender, nondistended. Bowel sounds present and normoactive. No guarding. No rebound. No organomegaly. EXTREMITIES: No clubbing, cyanosis, or edema.No joint effusion, has good ROM. No calf tenderness. Well perfused and warm. NEUROLOGICAL: Awake and alert. Cranial nerves grossly intact. Motor grossly within normal limits. PSYCHIATRIC: Normal affect, calm and cooperative. LINE: No evidence of infection Laboratory Laboratory Tests Test 04/07/17 12:45 04/08/17 01:30 04/08/17 04:58 04/08/17 06:30 Urine Color YELLOW Urine Turbidity CLEAR Urine pH 6.0 Urine Specific [place] 1.017 Urine Protein 30 Urine Glucose (UA) NEG Urine Ketones NEG Urine Occult Blood NEG Urine Nitrite NEG Urine Bilirubin NEG Urine Urobilinogen LESS THAN 2.0 Urine Leukocyte Esterase NEG Urine RBC 1 Urine WBC 1 Urine Squamous Epithelial Cells <1 Urine Mucus FEW Microscopic Urinalysis Comment CATH-CULT NOT IND Vancomycin Level Trough 16.9 White Blood Count 5.9 Red Blood Count 2.56 Hemoglobin 8.7 Hematocrit 26.0 Mean Corpuscular Volume 101.6 Mean Corpuscular Hemoglobin 33.8 Mean Corpuscular Hemoglobin Concent 33.3 Red Cell Distribution Width 14.7 Platelet Count 222 Mean Platelet Volume 7.8 Neutrophils (%) (Auto) 93.0 Lymphocytes (%) (Auto) 2.0 Monocytes (%) (Auto) 4.8 Eosinophils (%) (Auto) 0.0 Basophils (%) (Auto) 0.2 Neutrophils # (Auto) 5.5 Lymphocytes # (Auto) 0.1 Monocytes # (Auto) 0.3 Eosinophils # (Auto) 0.0 Basophils # (Auto) 0.0 CBC Comment DIFF FINAL Differential Comment Blood Urea Nitrogen 10 Creatinine 0.99 Random Glucose 202 Calcium Level 8.6 Sodium Level 135 Potassium Level 3.8 Chloride Level 106 Carbon Dioxide Level 18.1 Anion Gap 11 Estimat Glomerular Filtration Rate 77 B-Type Natriuretic Peptide 1262 Blood Gas Puncture Site LT BRACHIAL Blood Gas Patient Temperature 98.6 Blood Gas HCO3 16 Blood Gas Base Excess -8.4 Blood Gas Oxygen Saturation 91 Arterial Blood pH 7.34 Arterial Blood Partial Pressure CO2 31 Arterial Blood Partial Pressure O2 75 Arterial Blood Oxygen Content 12.0 Arterial Blood Carboxyhemoglobin 0.8 Arterial Blood Methemoglobin 1.1 Blood Gas Hemoglobin 9.3 Oxygen Delivery Device BiPAP Blood Gas Ventilator Setting 15IPAP/5EPAP Blood Gas Inspired Oxygen 45 Date/Time Source Procedure Growth Status 04/05/17 19:05 Blood Peripheral Aerobic Blood Culture - Preliminary NO GROWTH IN 3 DAYS Resulted 04/05/17 19:05 Blood Peripheral Anaerobic Blood Culture - Preliminary NO GROWTH IN 3 DAYS Resulted 04/07/17 13:23 Sputum Expectorated Sputum Gram Stain Pending Received 04/07/17 13:23 Sputum Expectorated Sputum Sputum Culture Pending Received 04/06/17 00:00 Urine Random Urine Legionella Antigen - Final PRESUMPTIVE NEGATIVE FOR LEGIONELLA P... Complete 04/06/17 00:00 Urine Random Urine Streptococcus pneumoniae Antigen (M - Final PRESUMPTIVE NEGATIVE FOR STREPTOCOCCU... Complete Result Diagram: 04/08/17 0458 04/08/17 0458 Imaging RADIOLOGY STUDIES/FILMS REVIEWED Chest X-Ray 04/08/17 0000 Signed Impressions: Service Date/Time: Saturday, April 08, 2017 04:32 - CONCLUSION: New coarse infiltrate in the right lung most characteristic of pneumonia. Willy Pantoja MD CT Angiography 04/05/17 0000 Signed Impressions: Service Date/Time: Wednesday, April 05, 2017 20:05 - CONCLUSION: 1. No pulmonary embolus. 2. Patchy bilateral pneumonia as above. 3. Vague left hilar mass concerning for carcinoma. 4. Upper limits of normal to mildly enlarged mediastinal lymph nodes. 5. Coronary artery calcification. Dmitri Manuel MD Assessment and Plan Assessment and Plan IMPRESSION Sepsis, likely due to PNA CAP, worsening patient with newly Dx lunga CA, S/P XRT COPD Respiratory failure RECOMMENDATION Continue IV Vanco Continue Cefepime IV Add Zithromax Follow C/S and adjust Abx Monitor respiratory status, currently requiring BIPAP CCM to evaluate patient Follow temps Monitor progress I will follow along with you Thank you for this consultation Discussed Condition With D/W Audrey Mendez MD Apr 08, 2017 11:17
--- NOTE | 2017-04-08 11:29 | PD.CONS ---
[facility] Service Critical Care Medicine Consult Requested By Dr. Lau Reason for Consult Afib with RVR, acute respiratory failure Primary Care Physician Unknown History of Present Illness History of Present Illness This is a 61-year-old male with a PMH of Lung CA, HTN, CAD, COPD and Tobacco Abuse who was admitted on 04/06 by hospitalist service secondary to complaints of generalized weakness and SOB x1 wk and decreased PO intake. Recently diagnosed w/ Lung CA in November 2016, has completed 5wks of Radiation, pending Chemotherapy. States symptoms have been getting progressively worse. Denies fever, chills, nausea, vomiting or diarrhea. On arrival, BP 117/64, HR 133, O2 sat 97% on 2L NC, Temp 101.1. WBC normal however elevated neutrophil count. Creatinine 1.53, previously 0.86 on 09/25/16. Troponin negative. Lactic Acid normal. INR 1.1. CXR with trace right basilar infiltrate. CTA Pulm negative for PE, patchy bilateral pneumonia, left hilar mass concerning for carcinoma. Patient developed worsening respiratory distress and A. fib with RVR so was transferred to the ICU on morning of 04/08. He was placed on BiPAP and Cardizem drip and critical care was consulted for worsening respiratory failure and A. fib with RVR. I evaluated the patient on being notified immediately. At that time he was on BiPAP with full facemask and extremely agitated and anxious. He was given Ativan and morphine and subsequently started on a Precedex drip and BiPAP settings were adjusted. He was also given Lasix for diuresis as his chest x-ray suggested pulmonary edema and he had an elevated BNP. History was obtained by reviewing records and discussion with Dr. Lau Review of Systems Except as stated in HPI: limited due to severe resp distress, Past Family Social History Past Medical History PMH: Lung CA, HTN, CAD, COPD and Tobacco Abuse Past Surgical History PAST SURGICAL HISTORY: Abdominal Surgery Allergies: Coded Allergies: No Known Allergies (Verified Allergy, Unknown, 04/05/17) Current Medications Sodium Chloride 1,000 ml @ 2,000 mls/hr Q30M ONCE IV Last administered on 04/05t 19:16; Start 04/05/17 at 19:00; Stop 04/05/17 at 19:29; Status DC Cefepime HCl 2000 mg/Sodium Chloride 100 ml @ 200 mls/hr ONCE ONCE IV Last administered on 04/05/17 19:31; Start 04/05/17 at 19:15; Stop 04/05/17 at 19:44 ; Status DC Vancomycin HCl 1000 mg/Sodium Chloride 250 ml @ 250 mls/hr ONCE ONCE IV Last administered on 04/05/17 20:22; Start 04/05/17 at 19:15; Stop 04/05/17 at 20:14 ; Status DC Acetaminophen (Tylenol) 650 mg ONCE ONCE PO Last administered on 04/05/17 19: 31; Start 04/05/17 at 19:30; Stop 04/05/17 at 19:31; Status DC Iohexol (Omnipaque 350 Inj) 74 ml STK-MED ONCE IVCONTRAST ; Start 04/05/17 at 20 :10; Stop 04/05/17 at 20:11; Status DC Sodium Chloride 1,000 ml @ 999 mls/hr BOLUS ONCE IV Last administered on 04/05 22:39; Start 04/05/17 at 21:00; Stop 04/05/17 at 22:00; Status DC Acetaminophen/ Hydrocodone Bitart ([place] 5-325 Mg) 1 tab ONCE ONCE PO Last administered on 04/05/17 21:52; Start 04/05/17 at 21:30; Stop 04/05/17 at 21:31 ; Status DC Pharmacy Profile Note 0 ml @ 0 mls/hr UNSCH OTHER ; Start 04/05/17 at 22:00 Cefepime HCl 1000 mg/Sodium Chloride 100 ml @ 200 mls/hr Q12H IV ; Start at 09:00; Status UNV Albuterol/ Ipratropium (Duoneb Neb) 1 ampule Q4HR NEB PRN NEB SOB/WHEEZING; Start 04/05/17 at 22:00; Stop 04/08/17 at 05:48; Status DC Sodium Chloride 1,000 ml @ 100 mls/hr Q10H IV Last administered on 04/08/17 01:16; Start 04/05/17 at 21:58; Stop 04/08/17 at 04:41; Status DC Sodium Chloride (NS Flush) 2 ml UNSCH PRN IV FLUSH FLUSH AFTER USING IV ACCESS ; Start 04/05/17 at 22:00 Sodium Chloride (NS Flush) 2 ml BID IV FLUSH Last administered on 04/08/17 08: 57; Start 04/06/17 at 09:00 Ondansetron HCl (Zofran Inj) 4 mg Q6H PRN IVP NAUSEA OR VOMITING; Start at 22:00 Acetaminophen (Tylenol) 650 mg Q6H PRN PO FEVER/PAIN SCALE 1 TO 2 Last administered on 04/07/17 15:39; Start 04/05/17 at 22:00 Acetaminophen/ Hydrocodone Bitart ([place] 5-325 Mg) 1 tab Q4H PRN PO PAIN SCALE 3 TO 5; Start 04/05/17 at 22:00 Hydromorphone HCl (Dilaudid Pf Inj) 1 mg Q3H PRN IV PUSH Pain 6-10; Start 04/05 at 22:00 Senna/Docusate Sodium ([place]ata-Colace) 1 tab BID PO Last administered on 20:14; Start 04/06/17 at 09:00 Magnesium Hydroxide (Milk Of Magnesia Liq) 30 ml Q12H PRN PO Mild constipation ; Start 04/05/17 at 22:00 Sennosides (Senokot) 17.2 mg Q12H PRN PO Moderate constipation; Start 04/05/17 at 22:00 Bisacodyl (Dulcolax Supp) 10 mg DAILY PRN RECTAL SEVERE CONSITIPATION; Start 04/05/17 at 22:00 Lactulose (Lactulose Liq) 30 ml DAILY PRN PO SEVERE CONSITIPATION; Start at 22:00 Guaifenesin (Mucinex Er) 600 mg BID PO Last administered on 04/07/17 20:14; Start 04/06/17 at 09:00 Cefepime HCl 2000 mg/Sodium Chloride 100 ml @ 200 mls/hr Q24H IV Last administered on 04/07/17 20:28; Start 04/06/17 at 20:00; Stop 04/08/17 at 06:48 ; Status DC Magnesium Sulfate/ Dextrose 100 ml @ 100 mls/hr ONCE ONCE IV Last administered on 04/06/17 01:20; Start 04/05/17 at 23:00; Stop 04/05/17 at 23:59 ; Status DC Heparin Sodium (Porcine) (Heparin Inj) 5,000 units Q12HR SQ Last administered on 04/07/17 20:15; Start 04/06/17 at 09:00 Pneumococcal Polyvalent Vaccine (Pneumovax-23 Inj) 25 mcg ONCE ONCE IM ; Start 04/07/17 at 10:00; Stop 04/07/17 at 10:01; Status DC Influenza Virus Vaccine (Flu (Quadrivalent) Vaccine Inj) 0.5 ml ONCE ONCE IM ; Start 04/07/17 at 10:00; Stop 04/07/17 at 10:01; Status DC Vancomycin HCl 1000 mg/Sodium Chloride 250 ml @ 250 mls/hr Q18H IV Last administered on 04/08/17 01:14; Start 04/06/17 at 14:00 Miscellaneous Information SPECIFIC LAB TO BE MAXIMINO... ONCE ONCE .XX Last administered on 04/08/17 01:15; Start 04/08/17 at 01:45; Stop 04/08/17 at 01:46 ; Status DC Potassium Chloride (KCl) 60 meq ONCE ONCE PO Last administered on 04/06/17 14 :10; Start 04/06/17 at 12:30; Stop 04/06/17 at 12:40; Status DC Multi-Ingredient Mouthwash/Gargle (Magic Mouthwash Adult Liq) 10 ml QID SWISH- SWAL Last administered on 04/07/17 20:14; Start 04/06/17 at 13:00 Metoprolol Tartrate (Lopressor) 25 mg ONCE ONCE PO Last administered on 20:47; Start 04/06/17 at 20:30; Stop 04/06/17 at 20:31; Status DC Potassium Bicarb/ Potassium Chloride (K-Lyte Cl Eff) 50 meq ONCE ONCE PO Last administered on 04/07/17 02:39; Start 04/07/17 at 02:15; Stop 04/07/17 at 02:16; Status DC Methylprednisolone Sodium Succinate (SoluMEDROL INJ) 40 mg Q6H IV PUSH Last administered on 04/08/17 08:56; Start 04/07/17 at 15:00 Pantoprazole Sodium (Protonix Inj) 40 mg DAILY IV PUSH Last administered on 08:56; Start 04/07/17 at 14:45 Diltiazem HCl (Cardizem Inj) 15 mg ONCE ONCE IV Last administered on 15:12; Start 04/07/17 at 14:45; Stop 04/07/17 at 14:47; Status DC Diltiazem HCl (Cardizem) 30 mg QID PO ; Start 04/07/17 at 18:00; Status Cancel Albuterol/ Ipratropium (Duoneb Neb) 1 ampule Q6HR NEB NEB Last administered on 04/08/17 02:42; Start 04/07/17 at 16:00; Stop 04/08/17 at 05:48; Status DC Diltiazem HCl (Cardizem) 30 mg QID PO ; Start 04/07/17 at 16:00; Stop 04/07/17 at 16:00; Status DC Methylprednisolone Sodium Succinate (SoluMEDROL INJ) 125 mg ONCE ONCE IV PUSH Last administered on 04/08/17 04:16; Start 04/08/17 at 04:15; Stop 04/08/17 at 04:16; Status DC Albuterol/ Ipratropium (Duoneb Neb) 1 ampule ONCE ONCE NEB Last administered on 04/08/17 05:16; Start 04/08/17 at 04:15; Stop 04/08/17 at 04:16; Status DC Furosemide (Lasix Inj) 40 mg ONCE ONCE IV PUSH Last administered on 04/08/17 04:45; Start 04/08/17 at 04:45; Stop 04/08/17 at 04:46; Status DC Diltiazem HCl (Cardizem Inj) 20 mg ONCE ONCE IV Last administered on 05:50; Start 04/08/17 at 05:30; Stop 04/08/17 at 05:39; Status DC Magnesium Sulfate/ Dextrose 100 ml @ 100 mls/hr ONCE ONCE IV Last administered on 04/08/17 05:50; Start 04/08/17 at 05:30; Stop 04/08/17 at 06:29 ; Status DC Potassium Chloride 100 ml @ 50 mls/hr Q2H IV Last administered on 04/08/17 05 :50; Start 04/08/17 at 05:30; Stop 04/08/17 at 09:29; Status DC Diltiazem HCl 125 mg/Sodium Chloride 125 ml @ 5 mls/hr TITRATE PRN IV Tachycardia Last administered on 04/08/17 06:04; Start 04/08/17 at 05:45 Lorazepam (Ativan Inj) 1 mg ONCE ONCE IV PUSH Last administered on 04/08/17 05:52; Start 04/08/17 at 05:45; Stop 04/08/17 at 05:47; Status DC Ipratropium [place] (Atrovent Neb) 0.5 mg Q6HR NEB NEB Last administered on 07:29; Start 04/08/17 at 10:00 Ipratropium [place] (Atrovent Neb) 0.5 mg Q2HR NEB PRN NEB wheezing; Start 04/08/17 at 06:00 Furosemide (Lasix Inj) 40 mg BID@09,18 IV PUSH ; Start 04/08/17 at 09:00 Miscellaneous Information 1 Q361D XX ; Start 04/08/17 at 06:15 Chlorhexidine Gluconate (Chlorhexidine 2% Cloth) 3 pack Taper DAILY@04 TOP ; Start 04/09/17 at 04:00; Stop 04/05/18 at 03:59 Chlorhexidine Gluconate (Chlorhexidine 2% Cloth) 3 pack UNSCH PRN TOP HYGIENIC CARE; Start 04/08/17 at 06:15 Morphine Sulfate (Morphine Inj) 4 mg STK-MED ONCE .ROUTE ; Start 04/08/17 at 06: 26; Stop 04/08/17 at 06:27; Status DC Diltiazem HCl (Cardizem Inj) 20 mg STAT ONCE IV Last administered on 06:37; Start 04/08/17 at 06:30; Stop 04/08/17 at 06:35; Status DC Morphine Sulfate (Morphine Inj) 4 mg Q4HR PRN IV PUSH breakthrough pain/ anxiety; Start 04/08/17 at 06:30 Furosemide (Lasix Inj) 40 mg STAT ONCE IV PUSH Last administered on 04/08/17 06:45; Start 04/08/17 at 06:45; Stop 04/08/17 at 06:46; Status DC Cefepime HCl 2000 mg/Sodium Chloride 100 ml @ 200 mls/hr STAT ONCE IV ; Start 04/08/17 at 07:00; Stop 04/08/17 at 07:29; Status DC Cefepime HCl 2000 mg/Sodium Chloride 100 ml @ 200 mls/hr Q8H IV ; Start at 16:00 Dexmedetomidine HCl (Precedex Inj) 28 mcg ONCE ONCE IV PUSH ; Start 04/08/17 at 07:00; Stop 04/08/17 at 07:09; Status DC Dexmedetomidine HCl 200 mcg/ Sodium Chloride 52 ml @ 2.9 mls/hr TITRATE PRN IV SEDATION; Start 04/08/17 at 07:00 Miscellaneous Information SPECIFIC LAB TO BE DRAWN:VANCOMYCIN TROUGH DATE TO... ONCE ONCE .XX ; Start 04/11/17 at 01:45; Stop 04/11/17 at 01:46 Family History PAST FAMILY HISTORY: Reviewed. No h/o DM or CAD Social History PAST SOCIAL HISTORY: Occasional alcohol. Positive for tobacco. Negative drugs. Physical Exam Vital Signs Vital Signs Date Time Temp Pulse Resp B/P (MAP) Pulse Ox O2 Delivery O2 Flow Rate FiO2 04/08/17 09:46 99 55 04/08/17 08:00 97.6 91 23 87/50 (62) 96 04/08/17 07:29 91 45 04/08/17 06:15 95 45 04/08/17 06:04 139 139/80 04/08/17 05:16 92 45 04/08/17 04:47 93 35 04/08/17 04:42 93 BiPAP 35 04/08/17 04:00 97.2 138 30 162/94 (116) 91 04/08/17 04:00 Nasal Cannula 4.00 04/08/17 02:42 94 Nasal Cannula 4.00 04/08/17 00:00 105 04/08/17 00:00 97.6 109 18 157/90 (112) 92 04/07/17 20:00 102 04/07/17 20:00 97.7 106 18 132/72 (92) 94 04/07/17 20:00 Nasal Cannula 3.00 04/07/17 16:09 122 04/07/17 16:00 90 4.00 04/07/17 16:00 101.1 135 22 156/94 (114) 90 04/07/17 15:38 92 Nasal Cannula 4.00 04/07/17 12:00 97.9 120 18 158/74 (102) 90 04/07/17 12:00 90 Nasal Cannula 4.00 Physical Exam Physical Exam PE: GENERAL: Middle-aged male, in respiratory distress on BiPAP with full facemask HEENT: PERRLA, EOMI. No scleral icterus or conjunctival pallor. CARDIOVASCULAR: S1S2 irregularly irregular. No obvious murmurs to auscultation. No chest tenderness to palpation. RESPIRATORY: on BiPAP with full facemask, air entry decreased bilaterally at bases, bilateral rhonchi and crackles. No wheezing GASTROINTESTINAL: Abdomen soft, non-tender, nondistended. BS normal. MUSCULOSKELETAL: Extremities without clubbing, cyanosis, or edema. No obvious deformities. NEUROLOGICAL: Anxious, agitated on initial evaluation on BiPAP with full facemask, moving all 4 extremities. Laboratory Laboratory Tests Test 04/07/17 12:45 04/08/17 01:30 04/08/17 04:58 04/08/17 06:30 Urine Color YELLOW Urine Turbidity CLEAR Urine pH 6.0 Urine Specific [place] 1.017 Urine Protein 30 Urine Glucose (UA) NEG Urine Ketones NEG Urine Occult Blood NEG Urine Nitrite NEG Urine Bilirubin NEG Urine Urobilinogen LESS THAN 2.0 Urine Leukocyte Esterase NEG Urine RBC 1 Urine WBC 1 Urine Squamous Epithelial Cells <1 Urine Mucus FEW Microscopic Urinalysis Comment CATH-CULT NOT IND Vancomycin Level Trough 16.9 White Blood Count 5.9 Red Blood Count 2.56 Hemoglobin 8.7 Hematocrit 26.0 Mean Corpuscular Volume 101.6 Mean Corpuscular Hemoglobin 33.8 Mean Corpuscular Hemoglobin Concent 33.3 Red Cell Distribution Width 14.7 Platelet Count 222 Mean Platelet Volume 7.8 Neutrophils (%) (Auto) 93.0 Lymphocytes (%) (Auto) 2.0 Monocytes (%) (Auto) 4.8 Eosinophils (%) (Auto) 0.0 Basophils (%) (Auto) 0.2 Neutrophils # (Auto) 5.5 Lymphocytes # (Auto) 0.1 Monocytes # (Auto) 0.3 Eosinophils # (Auto) 0.0 Basophils # (Auto) 0.0 CBC Comment DIFF FINAL Differential Comment Blood Urea Nitrogen 10 Creatinine 0.99 Random Glucose 202 Calcium Level 8.6 Sodium Level 135 Potassium Level 3.8 Chloride Level 106 Carbon Dioxide Level 18.1 Anion Gap 11 Estimat Glomerular Filtration Rate 77 B-Type Natriuretic Peptide 1262 Blood Gas Puncture Site LT BRACHIAL Blood Gas Patient Temperature 98.6 Blood Gas HCO3 16 Blood Gas Base Excess -8.4 Blood Gas Oxygen Saturation 91 Arterial Blood pH 7.34 Arterial Blood Partial Pressure CO2 31 Arterial Blood Partial Pressure O2 75 Arterial Blood Oxygen Content 12.0 Arterial Blood Carboxyhemoglobin 0.8 Arterial Blood Methemoglobin 1.1 Blood Gas Hemoglobin 9.3 Oxygen Delivery Device BiPAP Blood Gas Ventilator Setting 15IPAP/5EPAP Blood Gas Inspired Oxygen 45 Date/Time Source Procedure Growth Status 04/05/17 19:05 Blood Peripheral Aerobic Blood Culture - Preliminary NO GROWTH IN 2 DAYS Resulted 04/05/17 19:05 Blood Peripheral Anaerobic Blood Culture - Preliminary NO GROWTH IN 2 DAYS Resulted 04/07/17 13:23 Sputum Expectorated Sputum Gram Stain Pending Received 04/07/17 13:23 Sputum Expectorated Sputum Sputum Culture Pending Received 04/06/17 00:00 Urine Random Urine Legionella Antigen - Final PRESUMPTIVE NEGATIVE FOR LEGIONELLA P... Complete 04/06/17 00:00 Urine Random Urine Streptococcus pneumoniae Antigen (M - Final PRESUMPTIVE NEGATIVE FOR STREPTOCOCCU... Complete Result Diagram: 04/08/17 0458 04/08/17 0458 Imaging Last Impressions Chest X-Ray 04/08/17 0000 Signed Impressions: Service Date/Time: Saturday, April 08, 2017 04:32 - CONCLUSION: New coarse infiltrate in the right lung most characteristic of pneumonia. Willy Pantoja MD CT Angiography 04/05/17 0000 Signed Impressions: Service Date/Time: Wednesday, April 05, 2017 20:05 - CONCLUSION: 1. No pulmonary embolus. 2. Patchy bilateral pneumonia as above. 3. Vague left hilar mass concerning for carcinoma. 4. Upper limits of normal to mildly enlarged mediastinal lymph nodes. 5. Coronary artery calcification. Dmitri Manuel MD Septic Shock Reassessment Heart: Regular rate and rhythm Lungs: Course Skin: Warm Peripheral Pulses: Bounding Right Radial Capillary Refill: Brisk Assessment and Plan Assessment and Plan 61-year-old male with: Severe sepsis Pneumonia COPD exacerbation Pulmonary edema A. fib with RVR Lung cancer Hypertension Plan: Neuro: Precedex for controlling anxiety while on BiPAP. Ativan and morphine when necessary as needed. Follow neuro status. Cardiovascular: Diuresis with Lasix for pulmonary edema. Follow-up 2-D echo. Watch for hypotension. Antihypertensives as needed. Continue Cardizem drip for rate control for A. fib. Needs anticoagulation for A. fib. Will consult cardiology for further evaluation. Check cardiac enzymes. Initiate aspirin for antiplatelet therapy. Pulmonary: Continue BiPAP with full facemask, bronchodilators as needed. On IV Solu-Medrol. May require intubation if respiratory status declines despite BiPAP. GI/liver: Nothing by mouth till improvement in respiratory status. Renal/: Strict intake output, monitor and replete elect lites, follow BUN creatinine. Diuresing with Lasix. ID: Continue empiric antibiotic coverage with IV Zithromax and cefepime. ID consult requested by hospitalist service. Heme-onc: Follow CBC and coags. History of lung cancer status post previous radiation therapy. Endocrine: SSI for glycemic control if needed. Prophylaxis: Pepcid/SCDs/subcutaneous Lovenox Condition critical Time spent on critical care excluding procedures 70 minutes Samy Valdez MD Apr 08, 2017 11:29
--- NOTE | 2017-04-08 12:36 | ECHRPT ---
Indication: CHF CONCLUSIONS Normal left ventricular size. Wall thickness is normal. The left ventricular systolic function is low normal with an estimated ejection fraction in the rang e of 50- 55%. Mitral annular calcification is present. Aortic valve sclerosis is present. The pulmonary valve is not well visualized. BP: / HR: Rhythm: MEASUREMENTS (Male / Female) Normal Values Technical Quality: 2D ECHO LV Diastolic Diameter PLAX 4.0 cm 4.2 - 5.9 / 3.9 - 5.3 cm LV Systolic Diameter PLAX 3.5 cm IVS Diastolic Thickness 1.1 cm 0.6 - 1.0 / 0.6 - 0.9 cm LVPW Diastolic Thickness 0.7 cm 0.6 - 1.0 / 0.6 - 0.9 cm LV Relative Wall Thickness 0.4 RV Internal Dim ED PLAX 2.4 cm LA Systolic Diameter LX 2.9 cm 3.0 - 4.0 / 2.7 - 3.8 cm M-MODE Aortic Root Diameter MM 3.3 cm AV Cusp Separation MM 1.7 cm DOPPLER Mitral E Point Velocity 62.2 cm/s Mitral A Point Velocity 77.0 cm/s Mitral E to A Ratio 0.8 TR Peak Velocity 231.0 cm/s TR Peak Gradient 21.3 mmHg FINDINGS LEFT VENTRICLE Normal left ventricular size. Wall thickness is normal. The left ventricular systolic function is low normal with an estimated ejection fraction in the rang e of 50- 55%. RIGHT VENTRICLE Normal right ventricular size and systolic function. LEFT ATRIUM The left atrial size is normal. RIGHT ATRIUM The right atrial size is normal. ATRIAL SEPTUM Normal atrial septal thickness without atrial level shunting by limited color doppler interrogation. AORTA The aortic root and proximal ascending aorta are normal in size on limited imaging. MITRAL VALVE Mitral annular calcification is present. AORTIC VALVE Aortic valve sclerosis is present. TRICUSPID VALVE Structurally normal tricuspid valve. No tricuspid valve stenosis or regurgitation. PULMONARY VALVE The pulmonary valve is not well visualized. VESSELS The inferior vena cava is normal in size. PERICARDIUM No pericardial effusion. Luis Moss MD, FACC (Electronically Signed) Final Date:08 April 2017 12:35
[2017-04-08] MEDS: CEFEPIME 2000 MG/NS 100 ML IV SCH ×2 (17:28)
--- NOTE | 2017-04-08 19:18 | MB ---
cc: RAJWINDER REYNA M.D. DATE OF CONSULTATION: 04/08/2017. REASON FOR CONSULTATION: Atrial fibrillation with rapid ventricular response. HISTORY OF PRESENT ILLNESS: Robert Adams is a 61-year-old man with history of lung cancer, hypertension, atherosclerotic disease including coronary calcification and peripheral arterial disease I am asked to see for atrial fibrillation. The only EKG I can find on the chart is from admission, which shows sinus rhythm. Telemetry strips are available from 4:09 p.m. yesterday and 8:00 a.m. this morning, and both of these show sinus rhythm. I do not have any strips to document atrial fibrillation, although Dr. Valdez put in his consult that the patient developed atrial fibrillation with rapid ventricular response on the morning of the . As mentioned, he is currently in sinus rhythm. BNP is elevated but there are no other signs of heart failure specifically his physical exam does not support the diagnosis of heart failure and chest x-ray shows more suggestive of pneumonia of the right lung and a hilar mass on the left side. The patient denies any heart problems currently. He is anxious. He denies any chest pain. PAST MEDICAL HISTORY: 1. Peripheral arterial disease. Markedly impaired NORMA's on a test from 2013. He has had procedures done on his legs in the past. 2. Coronary artery disease. He apparently had an atherectomy of the left anterior descending with a bare-metal stent in 2013. 3. COPD with ongoing smoking. 4. Hypertension. 5. Past alcohol abuse with up to six heavy drinks daily. ALLERGIES: NONE KNOWN. CURRENT MEDICATIONS: 1. Diltiazem drip. 2. Antibiotics. 3. IV Lasix. 4. Solu-Medrol. FAMILY HISTORY: Family history is positive for coronary disease. SOCIAL HISTORY: Notable for smoking and alcohol. PHYSICAL EXAMINATION: GENERAL: The physical exam reveals an adequately developed white male wearing an oxygen mask. He does not appear to be acutely distressed. D HEAD, EYES, EARS, NOSE, THROAT: Unremarkable. NECK: Notable for the absence of jugular venous distention. No bruits appreciated. CHEST: Diminished breath sounds with bilateral rhonchi. CARDIAC: S1-S2. Regular rate and rhythm. I do not hear any murmurs or gallops. ABDOMEN: Soft. EXTREMITIES: No peripheral edema. His pedal pulses are palpable. IMAGING STUDIES: Chest x-ray showing a diffuse right lung infiltrate. LABORATORIES: Creatinine is 0.99. BNP elevated at 1262; however, echo-Doppler study done April 08 shows left ventricular ejection fraction of 50% to 55% with aortic valve sclerosis. IMPRESSION: The patient has been diagnosed with paroxysmal atrial fibrillation with rapid ventricular response. Unfortunately there are no EKGs or strips that I can see. He is in sinus rhythm now. Will take this on face value since Dr. Valdez examined him and determined he was in atrial fibrillation earlier today. He is on IV Cardizem. 1. I will start p.o. Cardizem and then the IV Cardizem can be turned off. 2. He is being treated with IV Lasix but I do not see signs of heart failure; specifically, I do not see any jugular venous distention or any peripheral edema and his left ventricular systolic function is normal. 3. I am going to go ahead and stop his furosemide. 4. He has multiple doctors following him. At this point, I will be available as needed. If he has recurrent atrial fibrillation, please let me know. He has ongoing treatment planned for lung cancer. MD BRYANT Roberson/JANEEN /5:53 PM /6:58 PM
[2017-04-08] MEDS: DILTIAZEM HCL 60 MG TAB PO SCH (22:00)
[2017-04-09] VITALS (20 sets, daily range): BP systolic 105–125; BP diastolic 63–71; PULSE 63–99; RESP 18–44; TEMP 97–97.9; O2SAT 90–100
[2017-04-09] MEDS: VANCOMYCIN 1,000 MG/NS 250 ML IV SCH ×2 (00:01)
[2017-04-09] MEDS: DEXMEDETOMIDINE INJ 200 MCG in SODIUM CHLORIDE 0.9% INJ 50 ML IV PRN ×2 (00:01→13:07)
[2017-04-09] MEDS: HEPARIN SODIUM - SQ 10,000 UNITS/ML VIAL SQ SCH ×3 (00:03→22:25)
[2017-04-09] MEDS: methylPREDNISolone SOD SUCC 40 MG/1 ML VIAL IV PUSH SCH ×5 (00:03→22:24)
[2017-04-09] MEDS: CEFEPIME 2000 MG/NS 100 ML IV SCH ×8 (00:03→23:03)
[2017-04-09] MEDS: SODIUM CHLORIDE 0.9% FLUSH 10 ML FLUSH IV FLUSH SCH ×3 (00:03→22:28)
[2017-04-09] MEDS: CHLORHEXIDINE GLUCONATE 2 % 1 PACK (2 CLOTHS) TOP SCH (04:00)
[2017-04-09] MEDS: RESP: IPRATROPIUM 0.5 MG/2.5 ML NEB NEB SCH ×4 (04:43→21:36)
[2017-04-09] MEDS: DILTIAZEM HCL 60 MG TAB PO SCH ×3 (05:09→22:26)
[2017-04-09 07:09] LABS: AUTOMATED NEUTROPHIL # 5.3 TH/MM3 (1.8-7.7); BASOPHIL % 0.1 % (0.0-2.0); HEMO FLAGS DIFF FINAL; LYMPH % 2.1 % (9.0-44.0); LYMPHOCYTE # 0.1 TH/MM3 (1.0-4.8); MEAN CELL VOLUME 102.5 FL (80.0-100.0); MEAN CORPUSCULAR HEMOGLOBIN 36.5 PG (27.0-34.0); MEAN CORPUSCULAR HGB CONC 35.6 % (32.0-36.0); MONO % 7.3 % (0.0-8.0); NEUT % 90.5 % (16.0-70.0); PLATELET COUNT 172 TH/MM3 (150-450); RED BLOOD COUNT 2.05 MIL/MM3 (4.50-5.90); RED CELL DISTRIBUTION WIDTH 14.8 % (11.6-17.2); WHITE BLOOD COUNT 5.9 TH/MM3 (4.0-11.0)
[2017-04-09 07:20] LABS: ANION GAP 8 MEQ/L (5-15); AST (GOT) 19 U/L (15-37); BICARBONATE 26.7 MEQ/L (21.0-32.0); BLOOD UREA NITROGEN 16 MG/DL (7-18); CHLORIDE 102 MEQ/L (98-107); GLOMERULAR FILTRATION RATE 97 ML/MIN (>89); POTASSIUM 3.3 MEQ/L (3.5-5.1); SODIUM (NA) 137 MEQ/L (136-145)
[2017-04-09 07:22] LABS: ALT (GPT) 19 U/L (12-78)
[2017-04-09 07:23] LABS: ALKALINE PHOSPHATASE 90 U/L (45-117); TOTAL BILIRUBIN ADULT 0.5 MG/DL (0.2-1.0)
[2017-04-09] MEDS: NYSTAT/DIPHENHY/LIDO MOUTHWASH (Adult) 120ML SWISH-SWAL SCH ×4 (09:00→22:25)
[2017-04-09] MEDS: guaiFENesin E.R. 600 MG TAB PO SCH ×2 (09:39→22:25)
[2017-04-09] MEDS: DOCUSATE SODIUM 50 MG/SENNA 8.6 MG TAB PO SCH ×2 (09:40→22:25)
[2017-04-09] MEDS: PANTOPRAZOLE SODIUM 40 MG VIAL IV PUSH SCH (09:40)
--- NOTE | 2017-04-09 14:17 | HHI.IDPN ---
Subjective Subjective Remarks Patient is a 61-year-old male, presented to the hospital complaining of one- week history of generalized weakness, as well as worsening shortness of breath. Denies any significant cough or sputum production. He was diagnosed to have lung cancer November 2016, and has received about 5 weeks of radiation therapy. He has not had any nausea or vomiting. Denies any chest pain. His initial chest x -ray showed a trace right base infiltrate. Patient was started on antibiotics for pneumonia. Late last night manager primary today, patient had deterioration with increasing shortness of breath and increasing oxygen requirement. His chest x-ray showed worsening infiltrates on the right side. He was transferred to the intensive care unit for closer monitoring. Patient has been requiring BiPAP for oxygenation. Patient has had fevers up to 101. Blood cultures are negative so far. Urine for Legionella and pneumococcal antigen are negative. Infectious disease consultation has been requested to evaluate the patient with worsening pneumonia Notes reviewed temps ok On PNRB mask Sputum prelim with PSAE BC negative Antibiotics Current Medications Vancomycin IV Cefepime IV Medications (Trade) Dose Ordered Sig/[place] Route Start Time Stop Time Status Last Admin Pharmacy Profile Note 0 ml @ 0 mls/hr UNSCH OTHER 04/05/17 22:00 (NS Flush) 2 ml UNSCH PRN IV FLUSH 04/05/17 22:00 (NS Flush) 2 ml BID IV FLUSH 04/06/17 09:00 04/09/17 09:00 (Zofran Inj) 4 mg Q6H PRN IVP 04/05/17 22:00 (Tylenol) 650 mg Q6H PRN PO 04/05/17 22:00 04/07/17 15:39 ([place] 5-325 Mg) 1 tab Q4H PRN PO 04/05/17 22:00 (Dilaudid Pf Inj) 1 mg Q3H PRN IV PUSH 04/05/17 22:00 (Nata-Colace) 1 tab BID PO 04/06/17 09:00 04/09/17 09:40 (Milk Of Magnesia Liq) 30 ml Q12H PRN PO 04/05/17 22:00 (Senokot) 17.2 mg Q12H PRN PO 04/05/17 22:00 (Dulcolax Supp) 10 mg DAILY PRN RECTAL 04/05/17 22:00 (Lactulose Liq) 30 ml DAILY PRN PO 04/05/17 22:00 (Mucinex Er) 600 mg BID PO 04/06/17 09:00 04/09/17 09:39 (Heparin Inj) 5,000 units Q12HR SQ 04/06/17 09:00 04/09/17 09:00 Vancomycin HCl 1000 mg/Sodium Chloride 250 ml @ 250 mls/hr Q18H IV 04/06/17 14:00 04/09/17 00:01 (Magic Mouthwash Adult Liq) 10 ml QID SWISH-SWAL 04/06/17 13:00 04/07/17 20:14 (SoluMEDROL INJ) 40 mg Q6H IV PUSH 04/07/17 15:00 04/09/17 09:40 (Protonix Inj) 40 mg DAILY IV PUSH 04/07/17 14:45 04/09/17 09:40 (Atrovent Neb) 0.5 mg Q6HR NEB NEB 04/08/17 10:00 04/09/17 10:30 (Atrovent Neb) 0.5 mg Q2HR NEB PRN NEB 04/08/17 06:00 Miscellaneous Information 1 Q361D XX 04/08/17 06:15 (Chlorhexidine 2% Cloth) 3 pack Taper DAILY@04 TOP 04/09/17 04:00 04/05/18 03:59 04/09/17 04:00 (Chlorhexidine 2% Cloth) 3 pack UNSCH PRN TOP 04/08/17 06:15 (Morphine Inj) 4 mg Q4HR PRN IV PUSH 04/08/17 06:30 Cefepime HCl 2000 mg/Sodium Chloride 100 ml @ 200 mls/hr Q8H IV 04/08/17 16:00 04/09/17 09:41 Dexmedetomidine HCl 200 mcg/ Sodium Chloride 52 ml @ 2.9 mls/hr TITRATE PRN IV 04/08/17 07:00 04/09/17 13:07 Miscellaneous Information SPECIFIC LAB TO BE DRAWN:VANCOMYCIN TROUGH DATE TO... ONCE ONCE .XX 04/11/17 01:45 04/11/17 01:46 (Cardizem) 60 mg Q8HR PO 04/08/17 22:00 Potassium Chloride 100 ml @ 50 mls/hr Q2H IV 04/09/17 13:00 04/09/17 16:59 Lines PIV Past Medical History Lung CA Hypertension CAD COPD Tobacco Abuse Past Surgical History Abdominal surgery Allergies: Coded Allergies: No Known Allergies (Verified Allergy, Unknown, 04/05/17) Objective . Vital Signs Date Time Temp Pulse Resp B/P (MAP) Pulse Ox O2 Delivery O2 Flow Rate FiO2 04/09/17 10:00 85 32 90 04/09/17 10:00 99 Partial Rebreather 04/09/17 10:00 85 04/09/17 09:00 80 38 100 04/09/17 09:00 80 04/09/17 08:00 83 04/09/17 08:00 97.8 83 24 100 04/09/17 07:00 99 Partial Non-Rebreather 4.00 45 04/09/17 06:00 75 04/09/17 04:00 97.4 63 31 105/65 (78) 100 04/09/17 04:00 63 04/09/17 02:00 76 04/09/17 00:00 67 04/09/17 00:00 97.0 67 18 110/63 (79) 99 04/08/17 22:00 73 04/08/17 20:58 99 Partial Rebreather 15.00 04/08/17 20:00 96.4 86 25 106/65 (79) 100 04/08/17 20:00 86 04/08/17 19:00 100 Partial Non-Rebreather 04/08/17 18:00 74 04/08/17 16:00 97.7 91 26 107/66 (80) 100 04/08/17 16:00 91 . Laboratory Tests Test 04/08/17 04:58 04/09/17 06:15 White Blood Count 5.9 TH/MM3 5.9 TH/MM3 Red Blood Count 2.56 MIL/MM3 2.05 MIL/MM3 Hemoglobin 8.7 GM/DL 7.5 GM/DL Hematocrit 26.0 % 21.0 % Mean Corpuscular Volume 101.6 FL 102.5 FL Mean Corpuscular Hemoglobin 33.8 PG 36.5 PG Mean Corpuscular Hemoglobin Concent 33.3 % 35.6 % Red Cell Distribution Width 14.7 % 14.8 % Platelet Count 222 TH/MM3 172 TH/MM3 Mean Platelet Volume 7.8 FL 7.9 FL Neutrophils (%) (Auto) 93.0 % 90.5 % Lymphocytes (%) (Auto) 2.0 % 2.1 % Monocytes (%) (Auto) 4.8 % 7.3 % Eosinophils (%) (Auto) 0.0 % 0.0 % Basophils (%) (Auto) 0.2 % 0.1 % Neutrophils # (Auto) 5.5 TH/MM3 5.3 TH/MM3 Lymphocytes # (Auto) 0.1 TH/MM3 0.1 TH/MM3 Monocytes # (Auto) 0.3 TH/MM3 0.4 TH/MM3 Eosinophils # (Auto) 0.0 TH/MM3 0.0 TH/MM3 Basophils # (Auto) 0.0 TH/MM3 0.0 TH/MM3 CBC Comment DIFF FINAL DIFF FINAL Differential Comment Laboratory Tests Test 04/08/17 04:58 04/08/17 17:01 04/09/17 06:15 Blood Urea Nitrogen 10 MG/DL 16 MG/DL Creatinine 0.99 MG/DL 0.81 MG/DL Random Glucose 202 MG/DL 139 MG/DL Calcium Level 8.6 MG/DL 8.1 MG/DL Sodium Level 135 MEQ/L 137 MEQ/L Potassium Level 3.8 MEQ/L 3.3 MEQ/L Chloride Level 106 MEQ/L 102 MEQ/L Carbon Dioxide Level 18.1 MEQ/L 26.7 MEQ/L Anion Gap 11 MEQ/L 8 MEQ/L Estimat Glomerular Filtration Rate 77 ML/MIN 97 ML/MIN B-Type Natriuretic Peptide 1262 PG/ML Troponin I 2.58 NG/ML Total Protein 5.9 GM/DL Albumin 1.8 GM/DL Alkaline Phosphatase 90 U/L Aspartate Amino Transf (AST/SGOT) 19 U/L Alanine Aminotransferase (ALT/SGPT) 19 U/L Total Bilirubin 0.5 MG/DL Microbiology Date/Time Source Procedure Growth Status 04/07/17 13:23 Sputum Expectorated Sputum Gram Stain - Final Complete 04/07/17 13:23 Sputum Culture - Final Pseudomonas Aeruginosa Complete Imaging Last Impressions Chest X-Ray 04/08/17 0000 Signed Impressions: Service Date/Time: Saturday, April 08, 2017 04:32 - CONCLUSION: New coarse infiltrate in the right lung most characteristic of pneumonia. Willy Pantoja MD CT Angiography 04/05/17 0000 Signed Impressions: Service Date/Time: Wednesday, April 05, 2017 20:05 - CONCLUSION: 1. No pulmonary embolus. 2. Patchy bilateral pneumonia as above. 3. Vague left hilar mass concerning for carcinoma. 4. Upper limits of normal to mildly enlarged mediastinal lymph nodes. 5. Coronary artery calcification. Dmitri Manuel MD Physical Exam GENERAL: awake and alert, not in respiratory distress. On PNRB mask SKIN: Cool and dry. No generalized rash, no ecchymoses HEAD: Atraumatic. Normocephalic. No temporal wasting, or tenderness. EYES: [place] conjunctiva. No petechia or hemorrhage. Pupils equal, round and reactive to light. Extraocular movements full and intact. No scleral icterus. EARS, NOSE AND THROAT: Nose without bleeding or purulent nasal discharge. No sinus tenderness. Dry oral mucosa, no oral lesions noted. No exudate. No oral thrush. NECK: Trachea midline. Supple and not tender, no meningeal signs CARDIOVASCULAR: Regular rate and rhythm. No murmurs, rubs or gallops heard RESPIRATORY: Coarse BS bilaterally, decreased on R side. No rales, wheezing or rhonchi ABDOMEN: Soft, non-tender, nondistended. Bowel sounds present and normoactive. No guarding. No rebound. No organomegaly. EXTREMITIES: No clubbing, cyanosis, or edema.No joint effusion, has good ROM. No calf tenderness. Well perfused and warm. NEUROLOGICAL: Non-focal PSYCHIATRIC: Normal affect, calm and cooperative. LINE: No evidence of infection Assessment & Plan Remarks IMPRESSION Sepsis, due to PNA PNA, C/S prelim PSAE CAP, worsening patient with newly Dx lunga CA, S/P XRT COPD Respiratory failure RECOMMENDATION Continue Cefepime IV Stop Vancomycin Also on Zithromax, if stable will stop Monitor respiratory status Follow temps Monitor progress D/W Dr Valdez ([facility]) Audrey Zamora MD Apr 09, 2017 14:16
--- NOTE | 2017-04-09 16:33 | EKG ---
Date Performed: 04/09/2017 Time Performed: 09:33:05 PTAGE: 61 years EKG: Sinus rhythm POSSIBLE LEFT ATRIAL ENLARGEMENT PROLONGED QT INTERVAL ABNORMAL ECG Since PREVIOUS TRACING , no significant change noted PREVIOUS TRACIN04/05/2017 19.22 DOCTOR: Simone Coleman Interpretating Date/Time 04/09/2017 16:31:37
[2017-04-09] MEDS: POTASSIUM CHLOR 20 MEQ PREMIX 100 ML IV SCH ×2 (16:39→22:24)
--- NOTE | 2017-04-09 16:56 | HHI.HCPN ---
Reason for visit a. To assist with evaluation and management of symptoms including: shortness of breath, agitation, decreased oral intake, physical deconditioning b. To assist medical decision maker(s) with: better understanding of current medical conditions; weighing benefits/burdens of medical treatment options; making medical treatment decisions. Subjective/Interval History Mr Adams is a 61 years old male with a past medical history of lung cancer, COPD, hypertension, CAD and tobacco use. Patient was diagnosed with lung cancer in November, and he underwent 5 weeks of radiation and pending chemotherapy treatment, though patient`s states that he did have 1 treatment of chemotherapy. Patient currently resides in a transitional home. Patient was accompanied by his friends to the ER on 04/05/17 complaining of shortness on breath, worsening weakness, fatigue and poor appetite for 5 days prior to ER visit. Patient seen and examined in his room. Patient in bed, awake, alert oriented to self, place and situation. Patient remains on Precedex infusion. Patient not happy that he was put on a pureed diet. Also complaining of his meals being not on time. Patient said he has calcium bone spurs on his gums which makes it difficult for him to chew food. Explained to patient that he is at high risk for aspiration and speech therapy will continue to evaluate him. Patient is afebrile. HR 80-90 NSR, patient on nonrebreather with O2 saturation in the 90s. Reports from bedside RN of desaturating whenever he takes of mask. Laboratory workup today revealing WBC 0.9, hemoglobin 7.5, hematocrit 1.0, platelet count 172, sodium 137, potassium 3.3, BUN/creatinine 16/0.81, total bilirubin 0.5, AST 19, ALT 19, total protein 5.9, albumin 1.8. Patient currently being transfused pRBC. Patient signed State [facility] [place] ([facility]) DNR. Placed signed form on chart. Introduced hospice philosophy and benefits. Patient stated that it is something to think about but he still is hoping to pursue radiation and chemotherapy. Telephone conversation with patient`s cousin Dahiana Mayorga, updated her on patient`s medical status. Palliative care contact information provided. ID following. Case discussed with bedside RN . Family/friend interactions Telephone conversation with patient`s cousin Dahiana Mayorga, updated her on patient`s medical status. Palliative care contact information provided. . Advance Directives Health Care Surrogate: Copy in medical record Advance Directive Specifics Date completed: 04/08/2017- [facility] . Health Care Surrogate(s): HCS- (Long time friend-15 yrs) Kay Rizvi [phone] Alternate [facility]- Cousin- Dahiana Mayorga [phone] . Significant change in goals: No changes in goals. . Objective Vital Signs Date Time Temp Pulse Resp B/P (MAP) Pulse Ox O2 Delivery O2 Flow Rate FiO2 04/09/17 15:35 87 04/09/17 15:35 87 28 125/71 (89) 99 04/09/17 15:00 77 41 100 04/09/17 15:00 77 04/09/17 14:50 97.1 85 18 115/66 100 04/09/17 14:32 97.9 90 28 115/66 100 04/09/17 14:00 99 44 99 04/09/17 14:00 99 04/09/17 13:00 90 31 100 04/09/17 13:00 90 04/09/17 12:00 97.9 88 31 99 04/09/17 12:00 88 04/09/17 10:00 85 32 90 04/09/17 10:00 99 Partial Rebreather 04/09/17 10:00 85 04/09/17 09:00 80 38 100 04/09/17 09:00 80 04/09/17 08:00 83 04/09/17 08:00 97.8 83 24 100 04/09/17 07:00 99 Partial Non-Rebreather 4.00 45 04/09/17 06:00 75 04/09/17 04:00 97.4 63 31 105/65 (78) 100 04/09/17 04:00 63 04/09/17 02:00 76 04/09/17 00:00 67 04/09/17 00:00 97.0 67 18 110/63 (79) 99 04/08/17 22:00 73 04/08/17 20:58 99 Partial Rebreather 15.00 04/08/17 20:00 96.4 86 25 106/65 (79) 100 04/08/17 20:00 86 04/08/17 19:00 100 Partial Non-Rebreather 04/08/17 18:00 74 Intake & Output 04/09/17 04/09/17 07:00 19:00 Intake Total 800 ml Output Total 1500 ml Balance -700 ml IV Total 800 ml Output Urine Total 1500 ml Physical Exam CONSTITUTIONAL/GENERAL: This is an ill-looking patient, who looks older than stated age.Patient looks pale.In mild respiratory distress. TUBES/LINES/DRAINS:BiPAP,SCDs, PIVs, FC SKIN: Pale. Ecchymoses on upper extremities. No wounds seen anteriorly. Skin temperature appropriate. Not diaphoretic. HEAD: Atraumatic. Normocephalic. EYES: Pupils equal and round and reactive. Extraocular motions intact. No injection or drainage. Fundi not examined. ENT: Hearing grossly normal. Nose without bleeding or purulent drainage. Moist oral mucosa NECK: Trachea midline. Supple, nontender. CARDIOVASCULAR: Irregular rate and rhythm without murmurs, gallops, or rubs. No JVD. Peripheral pulses symmetric. RESPIRATORY/CHEST: Symmetric,mildly labored respirations. Rhonchi to auscultation. Breath sounds equal bilaterally. No wheezes. GASTROINTESTINAL: Abdomen soft, non-tender, nondistended. No guarding. Bowel sounds present. GENITOURINARY: Without palpable bladder distension. Dockery catheter in place. MUSCULOSKELETAL: Extremities without clubbing, cyanosis, or edema. No joint tenderness or effusion noted. No calf tenderness. No mottling or clubbing. NEUROLOGICAL: Lethargic and oriented to self, place and situation. Motor and sensory grossly within normal limits. Follows commands. Moves all extremities. PSYCHIATRIC: Calm. No obvious anxiety/depression. no apparent hallucinations or other psychotic thought process. . Diagnostic Tests Laboratory Laboratory Tests Test 04/06/17 20:34 04/07/17 01:02 04/07/17 02:56 04/07/17 12:45 Hemoglobin 7.7 GM/DL (13.0-17.0) 7.9 GM/DL (13.0-17.0) Hematocrit 22.5 % (39.0-51.0) 22.8 % (39.0-51.0) Potassium Level 3.8 MEQ/L (3.5-5.1) 3.8 MEQ/L (3.5-5.1) Activated Partial Thromboplast Time 35.6 SEC (24.3-30.1) White Blood Count 6.7 TH/MM3 (4.0-11.0) Red Blood Count 2.27 MIL/MM3 (4.50-5.90) Mean Corpuscular Volume 100.4 FL (80.0-100.0) Mean Corpuscular Hemoglobin 34.8 PG (27.0-34.0) Mean Corpuscular Hemoglobin Concent 34.7 % (32.0-36.0) Red Cell Distribution Width 14.4 % (11.6-17.2) Platelet Count 183 TH/MM3 (150-450) Mean Platelet Volume 7.7 FL (7.0-11.0) Neutrophils (%) (Auto) 83.9 % (16.0-70.0) Lymphocytes (%) (Auto) 4.1 % (9.0-44.0) Monocytes (%) (Auto) 11.0 % (0.0-8.0) Eosinophils (%) (Auto) 0.8 % (0.0-4.0) Basophils (%) (Auto) 0.2 % (0.0-2.0) Neutrophils # (Auto) 5.6 TH/MM3 (1.8-7.7) Lymphocytes # (Auto) 0.3 TH/MM3 (1.0-4.8) Monocytes # (Auto) 0.7 TH/MM3 (0-0.9) Eosinophils # (Auto) 0.1 TH/MM3 (0-0.4) Basophils # (Auto) 0.0 TH/MM3 (0-0.2) CBC Comment DIFF FINAL Differential Comment Blood Urea Nitrogen 10 MG/DL (7-18) Creatinine 0.83 MG/DL (0.60-1.30) Random Glucose 107 MG/DL (74-106) Calcium Level 8.3 MG/DL (8.5-10.1) Magnesium Level 1.5 MG/DL (1.5-2.5) Sodium Level 134 MEQ/L (136-145) Chloride Level 107 MEQ/L (98-107) Carbon Dioxide Level 21.2 MEQ/L (21.0-32.0) Anion Gap 6 MEQ/L (5-15) Estimat Glomerular Filtration Rate 94 ML/MIN (>89) Prealbumin LESS THAN 3 MG/DL (20-40) Urine Color YELLOW (YELLW/STRAW) Urine Turbidity CLEAR (CLEAR) Urine pH 6.0 (5.0-8.5) Urine Specific [place] 1.017 (1.002-1.035) Urine Protein 30 mg/dL (NEG-TRACE) Urine Glucose (UA) NEG mg/dL (NEG) Urine Ketones NEG mg/dL (NEG) Urine Occult Blood NEG (NEG) Urine Nitrite NEG (NEG) Urine Bilirubin NEG (NEG) Urine Urobilinogen LESS THAN 2.0 MG/DL (LESS Urine Leukocyte Esterase NEG (NEG) Urine RBC 1 /hpf (0-3) Urine WBC 1 /hpf (0-5) Urine Squamous Epithelial Cells <1 /hpf (0-5) Urine Mucus FEW /lpf (OCC) Microscopic Urinalysis Comment CATH-CULT NOT IND Test 04/08/17 01:30 04/08/17 04:58 04/08/17 06:30 04/08/17 06:45 Vancomycin Level Trough 16.9 MCG/ML (5.0-10.0) White Blood Count 5.9 TH/MM3 (4.0-11.0) Red Blood Count 2.56 MIL/MM3 (4.50-5.90) Hemoglobin 8.7 GM/DL (13.0-17.0) Hematocrit 26.0 % (39.0-51.0) Mean Corpuscular Volume 101.6 FL (80.0-100.0) Mean Corpuscular Hemoglobin 33.8 PG (27.0-34.0) Mean Corpuscular Hemoglobin Concent 33.3 % (32.0-36.0) Red Cell Distribution Width 14.7 % (11.6-17.2) Platelet Count 222 TH/MM3 (150-450) Mean Platelet Volume 7.8 FL (7.0-11.0) Neutrophils (%) (Auto) 93.0 % (16.0-70.0) Lymphocytes (%) (Auto) 2.0 % (9.0-44.0) Monocytes (%) (Auto) 4.8 % (0.0-8.0) Eosinophils (%) (Auto) 0.0 % (0.0-4.0) Basophils (%) (Auto) 0.2 % (0.0-2.0) Neutrophils # (Auto) 5.5 TH/MM3 (1.8-7.7) Lymphocytes # (Auto) 0.1 TH/MM3 (1.0-4.8) Monocytes # (Auto) 0.3 TH/MM3 (0-0.9) Eosinophils # (Auto) 0.0 TH/MM3 (0-0.4) Basophils # (Auto) 0.0 TH/MM3 (0-0.2) CBC Comment DIFF FINAL Differential Comment Blood Urea Nitrogen 10 MG/DL (7-18) Creatinine 0.99 MG/DL (0.60-1.30) Random Glucose 202 MG/DL (74-106) Calcium Level 8.6 MG/DL (8.5-10.1) Sodium Level 135 MEQ/L (136-145) Potassium Level 3.8 MEQ/L (3.5-5.1) Chloride Level 106 MEQ/L (98-107) Carbon Dioxide Level 18.1 MEQ/L (21.0-32.0) Anion Gap 11 MEQ/L (5-15) Estimat Glomerular Filtration Rate 77 ML/MIN (>89) B-Type Natriuretic Peptide 1262 PG/ML (0-100) Blood Gas Puncture Site LT BRACHIAL Blood Gas Patient Temperature 98.6 Blood Gas HCO3 16 mmol/L (22-26) Blood Gas Base Excess -8.4 mmol/L (-2-2) Blood Gas Oxygen Saturation 91 % (90-100) Arterial Blood pH 7.34 (7.380-7.420) Arterial Blood Partial Pressure CO2 31 mmHg (38-42) Arterial Blood Partial Pressure O2 75 mmHg (61-120) Arterial Blood Oxygen Content 12.0 Vol % (12.0-20.0) Arterial Blood Carboxyhemoglobin 0.8 % (0-4) Arterial Blood Methemoglobin 1.1 % (0-2) Blood Gas Hemoglobin 9.3 G/DL (12.0-16.0) Oxygen Delivery Device BiPAP Blood Gas Ventilator Setting 15IPAP/5EPAP Blood Gas Inspired Oxygen 45 % Nasal Screen MRSA (PCR) MRSA NOT DETECTED (NOT Test 04/08/17 17:01 04/09/17 06:15 Troponin I 2.58 NG/ML (0.02-0.05) White Blood Count 5.9 TH/MM3 (4.0-11.0) Red Blood Count 2.05 MIL/MM3 (4.50-5.90) Hemoglobin 7.5 GM/DL (13.0-17.0) Hematocrit 21.0 % (39.0-51.0) Mean Corpuscular Volume 102.5 FL (80.0-100.0) Mean Corpuscular Hemoglobin 36.5 PG (27.0-34.0) Mean Corpuscular Hemoglobin Concent 35.6 % (32.0-36.0) Red Cell Distribution Width 14.8 % (11.6-17.2) Platelet Count 172 TH/MM3 (150-450) Mean Platelet Volume 7.9 FL (7.0-11.0) Neutrophils (%) (Auto) 90.5 % (16.0-70.0) Lymphocytes (%) (Auto) 2.1 % (9.0-44.0) Monocytes (%) (Auto) 7.3 % (0.0-8.0) Eosinophils (%) (Auto) 0.0 % (0.0-4.0) Basophils (%) (Auto) 0.1 % (0.0-2.0) Neutrophils # (Auto) 5.3 TH/MM3 (1.8-7.7) Lymphocytes # (Auto) 0.1 TH/MM3 (1.0-4.8) Monocytes # (Auto) 0.4 TH/MM3 (0-0.9) Eosinophils # (Auto) 0.0 TH/MM3 (0-0.4) Basophils # (Auto) 0.0 TH/MM3 (0-0.2) CBC Comment DIFF FINAL Differential Comment Blood Urea Nitrogen 16 MG/DL (7-18) Creatinine 0.81 MG/DL (0.60-1.30) Random Glucose 139 MG/DL (74-106) Total Protein 5.9 GM/DL (6.4-8.2) Albumin 1.8 GM/DL (3.4-5.0) Calcium Level 8.1 MG/DL (8.5-10.1) Alkaline Phosphatase 90 U/L (45-117) Aspartate Amino Transf (AST/SGOT) 19 U/L (15-37) Alanine Aminotransferase (ALT/SGPT) 19 U/L (12-78) Total Bilirubin 0.5 MG/DL (0.2-1.0) Sodium Level 137 MEQ/L (136-145) Potassium Level 3.3 MEQ/L (3.5-5.1) Chloride Level 102 MEQ/L (98-107) Carbon Dioxide Level 26.7 MEQ/L (21.0-32.0) Anion Gap 8 MEQ/L (5-15) Estimat Glomerular Filtration Rate 97 ML/MIN (>89) Result Diagram: 04/09/1715 04/09/1715 Microbiology Microbiology Date/Time Source Procedure Growth Status 04/07/17 13:23 Sputum Expectorated Sputum Gram Stain - Final Complete 04/07/17 13:23 Sputum Culture - Final Pseudomonas Aeruginosa Complete Assessment and Plan Disease Oriented Problem List: (1) Sepsis (2) Lung cancer (3) Bilateral pneumonia (4) Severe protein-calorie malnutrition (5) Tobacco use (6) Sore throat Symptom Scale: (1) Shortness of breath 0-10 Scale: Unable to quantify Comment: Multifactorial. Patient has a history of lung cancer. Reports that he has been having persistent dyspnea with exertion at home, unable to ambulate for a long distance due to dyspnea. Chest x-ray showed a trace right base infiltrate. Came in with c/o shortness of breath. Dyspneic with conversation. Patient started on antibiotics. Patient received Lasix. Patient is on solumedrol 40mg q 6 hrs, Guaifenesin 600mg BID. . (2) Decreased oral intake 0-10 Scale: Unable to quantify Comment: Patient reporting that he has had poor appetite. Swallow evaluation done- patient on a pureed diet with honey thick consistency and no straws. . (3) Agitation Comment: Patient has a history of COPD, he has worsening respiratory status and was getting agitated. (4) Physical deconditioning 0-10 Scale: Unable to quantify Pertinent Non-Medical Issues Psychosocial:Patient was born and raised in [place]. He left [place] the age of 20. Patient moved to [place] in [place]. Patient has a 2 years college degree in [employer]. 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 Patient was and twice. He never had children. Spiritual:No samaritan affiliation Legal: Patient signed [facility] form today. Ethical issues impacting care: None identified at this time. . Important Contacts HCS- (Long time friend-15 yrs) Kay Rizvi [phone] Alternate [facility]- Cousin- Dahiana Mayorga [phone] . Prognosis Mr Adams is a 61 years old male with a past medical history of lung cancer, COPD, hypertension, CAD and tobacco use. Patient was diagnosed with lung cancer in November, and he underwent 5 weeks of radiation and pending chemotherapy treatment, though patient`s states that he did have 1 treatment of chemotherapy. Patient currently resides in a transitional home. Patient was accompanied by his friends to the ER on 04/05/17 complaining of shortness on breath, worsening weakness, fatigue and poor appetite for 5 days prior to ER visit. Clinical course complicated with persistent shortness of breath, and Afib with RVR. Given ongoing comorbidities, patient remains at risk for complications, deterioration and decline. . Code Status: No Code Plan PLAN: Legal decision maker: Patient appears to have insight and judgement of his condition at this time and is able to make his own medical decisions. In the event that he is incapacitated, patient designated his long time friend Kay Rizvi as his healthcare surrogate and his cousin Dahiana Mayorga and his alternate HCS. Goals: 04/09/17- Aggressive short of no code. Patient signed State [facility] ([facility]) DNR. Placed signed form on chart. Introduced hospice philosophy and benefits. Patient stated that it is something to think about but he still is hoping to pursue radiation and chemotherapy. Telephone conversation with patient`s cousin Dahiana Mayorga, updated her on patient`s medical status and his decision to make himself a DNR. She is hopeful that patient gets better and continues with radiation and chemotherapy. CODE STATUS: DNR/DNI SYMPTOMS: * Shortness of breath: Multifactorial. Patient has a history of lung cancer. Reports that he has been having persistent dyspnea with exertion at home, unable to ambulate for a long distance due to dyspnea. Chest x-ray showed a trace right base infiltrate. Came in with c/o shortness of breath. Patient now on a non-rebreather. Reports of easily desaturating when he takes of the mask. Patient on antibiotics. Patient received Lasix. Patient is on solumedrol 40mg q 6 hrs, Guaifenesin 600mg BID. * Decreased PO Intake: Multifactorial. Patient states that he has to provide himself with food whilst living in a transitional home and unfortunately he does not like what they serve him. Patient also endorsing sore throat. Patient reporting that he has had poor appetite. Currently reporting being very thirsty and asking for orange juice, coffee. Recommending swallow evaluation. * Agitation: Patient has a history of COPD, he has worsening respiratory status and was getting agitated. Patient started on a Precedex infusion. Patient complaining that he does not like pureed diet. Currently calm. * Physical deconditioning : Multifactorial. Patient lives in a transitional home and he reports that he has to provide food for himself otherwise he does not like what they serve. Patient c/o of unable to ambulate for long distances due to increased shortness of breath. He continues to smoke cigarettes despite SOB. Patient has muscle wasting and reports that he has significantly lost weight since he was diagnosed with lung cancer. Patient also endorsing sore throat. Patient may benefit from physical therapy if goals do not change though it can be difficulty for him to fully participate due to dyspnea. Total protein= 5.9, Albumin=1.8. Palliative care will continue to follow the patient during hospital course as condition evolves, to assist patient/decision-maker with understanding of their medical conditions, weighing benefits/burdens of treatment options, for clarification of goals of treatment. Additionally will assist with any symptoms of palliative concern Randa Tenorio Apr 09, 2017 16:56
--- NOTE | 2017-04-09 17:02 | PD.CARD.PN ---
Subjective Subjective Remarks Note I saw patient at 0900. Pt. c/o not feeling well. No angina Objective Medications Current Medications Medications (Trade) Dose Ordered Sig/[place] Route Start Time Stop Time Status Last Admin (NS Flush) 2 ml UNSCH PRN IV FLUSH 04/05/17 22:00 (NS Flush) 2 ml BID IV FLUSH 04/06/17 09:00 04/09/17 09:00 (Zofran Inj) 4 mg Q6H PRN IVP 04/05/17 22:00 (Tylenol) 650 mg Q6H PRN PO 04/05/17 22:00 04/07/17 15:39 ([place] 5-325 Mg) 1 tab Q4H PRN PO 04/05/17 22:00 (Dilaudid Pf Inj) 1 mg Q3H PRN IV PUSH 04/05/17 22:00 (Nata-Colace) 1 tab BID PO 04/06/17 09:00 04/09/17 09:40 (Milk Of Magnesia Liq) 30 ml Q12H PRN PO 04/05/17 22:00 (Senokot) 17.2 mg Q12H PRN PO 04/05/17 22:00 (Dulcolax Supp) 10 mg DAILY PRN RECTAL 04/05/17 22:00 (Lactulose Liq) 30 ml DAILY PRN PO 04/05/17 22:00 (Mucinex Er) 600 mg BID PO 04/06/17 09:00 04/09/17 09:39 (Heparin Inj) 5,000 units Q12HR SQ 04/06/17 09:00 04/09/17 09:00 (Magic Mouthwash Adult Liq) 10 ml QID SWISH-SWAL 04/06/17 13:00 04/09/17 16:39 (SoluMEDROL INJ) 40 mg Q6H IV PUSH 04/07/17 15:00 04/09/17 16:20 (Protonix Inj) 40 mg DAILY IV PUSH 04/07/17 14:45 04/09/17 09:40 (Atrovent Neb) 0.5 mg Q6HR NEB NEB 04/08/17 10:00 04/09/17 16:26 (Atrovent Neb) 0.5 mg Q2HR NEB PRN NEB 04/08/17 06:00 Miscellaneous Information 1 Q361D XX 04/08/17 06:15 (Chlorhexidine 2% Cloth) 3 pack Taper DAILY@04 TOP 04/09/17 04:00 04/05/18 03:59 04/09/17 04:00 (Chlorhexidine 2% Cloth) 3 pack UNSCH PRN TOP 04/08/17 06:15 (Morphine Inj) 4 mg Q4HR PRN IV PUSH 04/08/17 06:30 Cefepime HCl 2000 mg/Sodium Chloride 100 ml @ 200 mls/hr Q8H IV 04/08/17 16:00 04/09/17 09:41 Dexmedetomidine HCl 200 mcg/ Sodium Chloride 52 ml @ 2.9 mls/hr TITRATE PRN IV 04/08/17 07:00 04/09/17 13:07 (Cardizem) 60 mg Q8HR PO 04/08/17 22:00 04/09/17 16:20 Potassium Chloride 100 ml @ 50 mls/hr Q2H IV 04/09/17 13:00 04/09/17 16:59 04/09/17 16:39 Vital Signs / I&O Vital Signs Date Time Temp Pulse Resp B/P (MAP) Pulse Ox O2 Delivery O2 Flow Rate FiO2 04/09/17 15:35 87 04/09/17 15:35 87 28 125/71 (89) 99 04/09/17 15:00 77 41 100 04/09/17 15:00 77 04/09/17 14:50 97.1 85 18 115/66 100 04/09/17 14:32 97.9 90 28 115/66 100 04/09/17 14:00 99 44 99 04/09/17 14:00 99 04/09/17 13:00 90 31 100 04/09/17 13:00 90 04/09/17 12:00 97.9 88 31 99 04/09/17 12:00 88 04/09/17 10:00 85 32 90 04/09/17 10:00 99 Partial Rebreather 04/09/17 10:00 85 04/09/17 09:00 80 38 100 04/09/17 09:00 80 04/09/17 08:00 83 04/09/17 08:00 97.8 83 24 100 04/09/17 07:00 99 Partial Non-Rebreather 4.00 45 04/09/17 06:00 75 04/09/17 04:00 97.4 63 31 105/65 (78) 100 04/09/17 04:00 63 04/09/17 02:00 76 04/09/17 00:00 67 04/09/17 00:00 97.0 67 18 110/63 (79) 99 04/08/17 22:00 73 04/08/17 20:58 99 Partial Rebreather 15.00 04/08/17 20:00 96.4 86 25 106/65 (79) 100 04/08/17 20:00 86 04/08/17 19:00 100 Partial Non-Rebreather 04/08/17 18:00 74 I/O 04/08/17 04/08/17 04/08/17 04/09/17 04/09/17 04/09/17 07:00 15:00 23:00 07:00 15:00 23:00 Intake Total 999 ml 357.3 ml 500 ml Output Total 1600 ml 700 ml 1200 ml 1500 ml Balance -601 ml -700 ml -842.7 ml -1000 ml IV Total 999 ml 357.3 ml 500 ml Output Urine Total 1600 ml 700 ml 1200 ml 1500 ml # Bowel Movements 0 Physical Exam Alert Chest + rhonchi CV S1S2 RRR, no S3 Abd soft Troponin high EKG no ST changes Laboratory Laboratory Tests Test 04/08/17 17:01 04/09/17 06:15 Troponin I 2.58 NG/ML White Blood Count 5.9 TH/MM3 Red Blood Count 2.05 MIL/MM3 Hemoglobin 7.5 GM/DL Hematocrit 21.0 % Mean Corpuscular Volume 102.5 FL Mean Corpuscular Hemoglobin 36.5 PG Mean Corpuscular Hemoglobin Concent 35.6 % Red Cell Distribution Width 14.8 % Platelet Count 172 TH/MM3 Mean Platelet Volume 7.9 FL Neutrophils (%) (Auto) 90.5 % Lymphocytes (%) (Auto) 2.1 % Monocytes (%) (Auto) 7.3 % Eosinophils (%) (Auto) 0.0 % Basophils (%) (Auto) 0.1 % Neutrophils # (Auto) 5.3 TH/MM3 Lymphocytes # (Auto) 0.1 TH/MM3 Monocytes # (Auto) 0.4 TH/MM3 Eosinophils # (Auto) 0.0 TH/MM3 Basophils # (Auto) 0.0 TH/MM3 CBC Comment DIFF FINAL Differential Comment Blood Urea Nitrogen 16 MG/DL Creatinine 0.81 MG/DL Random Glucose 139 MG/DL Total Protein 5.9 GM/DL Albumin 1.8 GM/DL Calcium Level 8.1 MG/DL Alkaline Phosphatase 90 U/L Aspartate Amino Transf (AST/SGOT) 19 U/L Alanine Aminotransferase (ALT/SGPT) 19 U/L Total Bilirubin 0.5 MG/DL Sodium Level 137 MEQ/L Potassium Level 3.3 MEQ/L Chloride Level 102 MEQ/L Carbon Dioxide Level 26.7 MEQ/L Anion Gap 8 MEQ/L Estimat Glomerular Filtration Rate 97 ML/MIN Imaging Last 48 hours Impressions Chest X-Ray 04/08/17 0000 Signed Impressions: Service Date/Time: Saturday, April 08, 2017 04:32 - CONCLUSION: New coarse infiltrate in the right lung most characteristic of pneumonia. Willy Pantoja MD Assessment and Plan Problem List: (1) Non-STEMI (non-ST elevated myocardial infarction) ICD Codes: I21.4 - Non-ST elevation (NSTEMI) myocardial infarction Plan: Type 2 secondary to pneumonia/ tachycardia (2) Paroxysmal A-fib ICD Codes: I48.0 - Paroxysmal atrial fibrillation Plan: In SR. Cont Diltiazem (3) Bilateral pneumonia ICD Codes: J18.9 - Pneumonia, unspecified organism Status: Acute (4) Lung cancer ICD Codes: C34.90 - Malignant neoplasm of unspecified part of unspecified bronchus or lung Problem Qualifiers (1) Bilateral pneumonia: Qualified Codes: J18.9 - Pneumonia, unspecified organism Bernard Nava MD Apr 09, 2017 17:02
[2017-04-09] MEDS: MORPHINE SULFATE 4 MG/ML INJ IV PUSH PRN (17:22)
--- NOTE | 2017-04-09 18:17 | HHI.CCPN ---
Subjective Remarks/Hospital Course 03/09: This is a 61-year-old male with a PMH of Lung CA, HTN, CAD, COPD and Tobacco Abuse who was admitted on 04/06 by hospitalist service secondary to complaints of generalized weakness and SOB x1 wk and decreased PO intake. Recently diagnosed w/ Lung CA in November 2016, has completed 5wks of Radiation, pending Chemotherapy. States symptoms have been getting progressively worse. Denies fever, chills, nausea, vomiting or diarrhea. On arrival, BP 117/64, HR 133, O2 sat 97% on 2L NC, Temp 101.1. WBC normal however elevated neutrophil count. Creatinine 1.53, previously 0.86 on 09/25/16. Troponin negative. Lactic Acid normal. INR 1.1. CXR with trace right basilar infiltrate. CTA Pulm negative for PE, patchy bilateral pneumonia, left hilar mass concerning for carcinoma. Patient developed worsening respiratory distress and A. fib with RVR so was transferred to the ICU on morning of 04/08. He was placed on BiPAP and Cardizem drip and critical care was consulted for worsening respiratory failure and A. fib with RVR. I evaluated the patient on being notified immediately. At that time he was on BiPAP with full facemask and extremely agitated and anxious. He was given Ativan and morphine and subsequently started on a Precedex drip and BiPAP settings were adjusted. He was also given Lasix for diuresis as his chest x-ray suggested pulmonary edema and he had an elevated BNP. History was obtained by reviewing records and discussion with Dr. Lau 03/10: Breathing improved with diuresis yesterday. Still on nonrebreather facemask Patient awake and alert. Feeling hungry this afternoon at the time of my evaluation. Was awaiting PRBC transfusion. Objective Vital Signs Date Time Temp Pulse Resp B/P (MAP) Pulse Ox O2 Delivery O2 Flow Rate FiO2 04/09/17 17:00 91 27 99 04/09/17 16:00 97.9 04/09/17 15:35 125/71 (89) 04/09/17 10:00 Partial Rebreather 04/09/17 07:00 4.00 45 Intake and Output 04/09/17 04/09/17 04/10/17 08:00 16:00 00:00 Intake Total 450 ml 100 ml 510 ml Output Total 1500 ml Balance -1050 ml 100 ml 510 ml Result Diagram: 04/09/17 0615 04/09/17 0615 Other Results Microbiology Date/Time Source Procedure Growth Status 04/07/17 13:23 Sputum Expectorated Sputum Gram Stain - Final Complete 04/07/17 13:23 Sputum Culture - Final Pseudomonas Aeruginosa Complete Imaging Last Impressions Chest X-Ray 04/08/17 0000 Signed Impressions: Service Date/Time: Saturday, April 08, 2017 04:32 - CONCLUSION: New coarse infiltrate in the right lung most characteristic of pneumonia. Willy Pantoja MD CT Angiography 04/05/17 0000 Signed Impressions: Service Date/Time: Wednesday, April 05, 2017 20:05 - CONCLUSION: 1. No pulmonary embolus. 2. Patchy bilateral pneumonia as above. 3. Vague left hilar mass concerning for carcinoma. 4. Upper limits of normal to mildly enlarged mediastinal lymph nodes. 5. Coronary artery calcification. Dmitri Manuel MD Objective Remarks Physical Exam PE: GENERAL: Middle-aged male, laying in bed on nonrebreather facemask not in any acute distress HEENT: PERRLA, EOMI. No scleral icterus or conjunctival pallor. CARDIOVASCULAR: S1S2 regular. No obvious murmurs to auscultation. No chest tenderness to palpation. RESPIRATORY: on NRB M, air entry decreased bilaterally at bases, scattered rhonchi bilaterally no wheezing or crackles GASTROINTESTINAL: Abdomen soft, non-tender, nondistended. BS normal. MUSCULOSKELETAL: Extremities without clubbing, cyanosis, or edema. No obvious deformities. NEUROLOGICAL: Awake alert oriented 3, nonfocal grossly A/P Assessment and Plan 61-year-old male with: Severe sepsis Pneumonia COPD exacerbation Pulmonary edema Non-ST elevation DC A. fib with RVR-now in RSR Lung cancer Hypertension Plan: Neuro: Precedex for controlling anxiety. Ativan and morphine when necessary as needed. Follow neuro status. Cardiovascular: Diuresed with Lasix for pulmonary edema. Follow-up 2-D echo. Watch for hypotension. Antihypertensives as needed. Titrate off Cardizem drip , cardiac consult noted. Initiate aspirin for antiplatelet therapy. Pulmonary: On NRB M, bronchodilators as needed. On IV Solu-Medrol. GI/liver: Advance by mouth diet Renal/: Strict intake output, monitor and replete elect lites, follow BUN creatinine. Diuresed with Lasix. ID: Continue empiric antibiotic coverage with IV Zithromax and cefepime. ID consult requested by hospitalist service. Heme-onc: Follow CBC and coags. History of lung cancer status post previous radiation therapy. One unit PRBC to be transfused on 04/09 in view of symptomatic anemia in setting of non-ST elevation DC. Transfuse to keep hemoglobin above 8 g percent Endocrine: SSI for glycemic control if needed. Prophylaxis: Pepcid/SCDs/subcutaneous Lovenox Palliative care consulted. Patient has made himself a DNR status. Samy Valdez MD Apr 09, 2017 18:17
[2017-04-09 20:18] LABS: HEMATOCRIT 26.5 % (39.0-51.0); REVIEW FLAG FINAL
[2017-04-09] MEDS ORDERED: POTASSIUM CHLOR 20 MEQ PREMIX 100 ML ONE (20:43)
[2017-04-10] VITALS (21 sets, daily range): BP systolic 117–146; BP diastolic 63–83; PULSE 63–111; RESP 23–46; TEMP 97.9–98; O2SAT 89–100
[2017-04-10] MEDS: DEXMEDETOMIDINE INJ 1,000 MCG in SODIUM CHLOR 0.9% 250 ML INJ 240 ML IV PRN (00:16)
[2017-04-10] MEDS: CHLORHEXIDINE GLUCONATE 2 % 1 PACK (2 CLOTHS) TOP SCH (04:00)
[2017-04-10] MEDS: RESP: IPRATROPIUM 0.5 MG/2.5 ML NEB NEB SCH ×4 (04:39→21:11)
[2017-04-10] MEDS: DILTIAZEM HCL 60 MG TAB PO SCH ×3 (05:28→22:35)
[2017-04-10] MEDS: methylPREDNISolone SOD SUCC 40 MG/1 ML VIAL IV PUSH SCH ×4 (05:28→20:44)
[2017-04-10] MEDS: DOCUSATE SODIUM 50 MG/SENNA 8.6 MG TAB PO SCH ×2 (07:58→20:44)
[2017-04-10] MEDS: guaiFENesin E.R. 600 MG TAB PO SCH ×2 (07:58→20:44)
[2017-04-10] MEDS: HEPARIN SODIUM - SQ 10,000 UNITS/ML VIAL SQ SCH ×2 (07:58→20:45)
[2017-04-10] MEDS: PANTOPRAZOLE SODIUM 40 MG VIAL IV PUSH SCH (07:59)
[2017-04-10] MEDS: CEFEPIME 2000 MG/NS 100 ML IV SCH ×4 (07:59→15:29)
[2017-04-10] MEDS: NYSTAT/DIPHENHY/LIDO MOUTHWASH (Adult) 120ML SWISH-SWAL SCH ×4 (07:59→20:44)
[2017-04-10] MEDS ORDERED: POTASSIUM CHLORIDE 25 MEQ EFFERVESCENT TAB PO PRN (08:00)
[2017-04-10] MEDS ORDERED: MAGNESIUM SULFATE INJ 4 GM in SODIUM CHLORIDE 0.9% INJ 92 ML IV PRN (08:00)
[2017-04-10] MEDS ORDERED: POTASSIUM CHLOR 20 MEQ PREMIX 100 ML IV PRN ×2 (08:00)
[2017-04-10] MEDS ORDERED: POTASSIUM PHOSPHATE MONOBASIC 500 MG TAB PO PRN (08:00)
[2017-04-10] MEDS ORDERED: POTASSIUM PHOSPHATE MONOBASIC 500 MG TAB PO/TUBE PRN (08:00)
[2017-04-10] MEDS ORDERED: SODIUM PHOSPHATE INJ 30 MMOL in SODIUM CHLOR 0.9% 250 ML INJ 240 ML IV PRN (08:00)
[2017-04-10] MEDS ORDERED: POTASSIUM CHLOR 40 MEQ PREMIX 100 ML IV PRN ×2 (08:00)
[2017-04-10] MEDS ORDERED: MAGNESIUM OXIDE 400 MG TAB PO PRN (08:00)
[2017-04-10] MEDS ORDERED: POTASSIUM PHOSPHATE INJ 30 MMOL in SODIUM CHLOR 0.9% 250 ML INJ 250 ML IV PRN (08:00)
[2017-04-10] MEDS ORDERED: MAGNESIUM SULFATE INJ 2 GM in SODIUM CHLORIDE 0.9% INJ 96 ML IV PRN (08:00)
--- NOTE | 2017-04-10 08:01 | HHI.CCPN ---
Subjective Remarks/Hospital Course 03/09: This is a 61-year-old male with a PMH of Lung CA, HTN, CAD, COPD and Tobacco Abuse who was admitted on 04/06 by hospitalist service secondary to complaints of generalized weakness and SOB x1 wk and decreased PO intake. Recently diagnosed w/ Lung CA in November 2016, has completed 5wks of Radiation, pending Chemotherapy. States symptoms have been getting progressively worse. Denies fever, chills, nausea, vomiting or diarrhea. On arrival, BP 117/64, HR 133, O2 sat 97% on 2L NC, Temp 101.1. WBC normal however elevated neutrophil count. Creatinine 1.53, previously 0.86 on 09/25/16. Troponin negative. Lactic Acid normal. INR 1.1. CXR with trace right basilar infiltrate. CTA Pulm negative for PE, patchy bilateral pneumonia, left hilar mass concerning for carcinoma. Patient developed worsening respiratory distress and A. fib with RVR so was transferred to the ICU on morning of 04/08. He was placed on BiPAP and Cardizem drip and critical care was consulted for worsening respiratory failure and A. fib with RVR. I evaluated the patient on being notified immediately. At that time he was on BiPAP with full facemask and extremely agitated and anxious. He was given Ativan and morphine and subsequently started on a Precedex drip and BiPAP settings were adjusted. He was also given Lasix for diuresis as his chest x-ray suggested pulmonary edema and he had an elevated BNP. History was obtained by reviewing records and discussion with Dr. Lau 03/10: Breathing improved with diuresis yesterday. Still on nonrebreather facemask Patient awake and alert. Feeling hungry this afternoon at the time of my evaluation. Was awaiting PRBC transfusion. 04/10 Patient is on partial rebreather awake and alert. On Precedex drip. Afebrile. Off Cardizem drip. Objective Vital Signs Date Time Temp Pulse Resp B/P (MAP) Pulse Ox O2 Delivery O2 Flow Rate FiO2 04/10/17 06:00 77 04/10/17 04:00 98.0 42 117/72 (87) 98 04/09/17 21:36 Partial Rebreather 15.00 04/09/17 19:15 45 Intake and Output 04/10/17 04/10/17 04/11/17 08:00 16:00 00:00 Intake Total 530 ml Output Total 400 ml Balance 130 ml Result Diagram: 04/09/17 1923 04/09/17 0615 Other Results Laboratory Tests Test 04/09/17 19:23 Hemoglobin 9.1 GM/DL Hematocrit 26.5 % Imaging Last Impressions Chest X-Ray 04/08/17 0000 Signed Impressions: Service Date/Time: Saturday, April 08, 2017 04:32 - CONCLUSION: New coarse infiltrate in the right lung most characteristic of pneumonia. Willy Pantoja MD CT Angiography 04/05/17 0000 Signed Impressions: Service Date/Time: Wednesday, April 05, 2017 20:05 - CONCLUSION: 1. No pulmonary embolus. 2. Patchy bilateral pneumonia as above. 3. Vague left hilar mass concerning for carcinoma. 4. Upper limits of normal to mildly enlarged mediastinal lymph nodes. 5. Coronary artery calcification. Dmitri Manuel MD Objective Remarks GENERAL: PAtient is lying in bed in NAD SKIN: Warm and dry. HEAD: Normocephalic. EYES: No scleral icterus. No injection or drainage. NECK: Supple, trachea midline. No JVD or lymphadenopathy. CARDIOVASCULAR: Regular rate and rhythm without murmurs, gallops, or rubs. RESPIRATORY: Breath sounds equal bilaterally. No accessory muscle use. GASTROINTESTINAL: Abdomen soft, non-tender, nondistended. MUSCULOSKELETAL: No cyanosis, or edema. BACK: Nontender without obvious deformity. No CVA tenderness. Neuro: Awake and alert. A/P Assessment and Plan 61-year-old male with: Severe sepsis Pneumonia COPD exacerbation Pulmonary edema Non-ST elevation ID A. fib with RVR-now in RSR Lung cancer Hypertension Plan: Neuro: Wean off Precedex drip. Monitor neuro status. Ativan and morphine when necessary as needed. CV: Monitor HR and BP keep MAP>65mmHg Monitor trop, Echo showed EF 50-55%, Cards is following- Dr. Nava Continue with Cardizem 60mg Q8, add ASA Pulm: Wean down oxygen as moise keep sat >92% Bronchodilators, NIPPV PRN for resp distress On Solumederol 40mg Q8, check CXR GI/liver: On PO diet Renal/: Monitor renal function, electrolytes replacement per protocol. ID: Continue abx per ID ( cefepime) ID is following Sputum 12/5: Pseudomonas Heme-onc: Follow CBC and coags. History of lung cancer status post previous radiation therapy. One unit PRBC transfused 04/09 Endocrine: SSI for glycemic control Prophylaxis: Pepcid/SCDs/subcutaneous Lovenox Palliative care is following Check labs today level 3 Rachel Otero MD Apr 10, 2017 08:01
[2017-04-10] MEDS ORDERED: DEXTROSE 50% IN WATER 50 ML VIAL(D50) IV PUSH PRN (08:15)
[2017-04-10] MEDS: INSULIN NovoLIN REGULAR SUPPLEMENTAL SCALE SQ SCH ×3 (08:15→17:26)
[2017-04-10] MEDS ORDERED: GLUCAGON 1 MG/ML VIAL OTHER PRN (08:15)
--- NOTE | 2017-04-10 08:58 | RADRPT ---
EXAM DATE/TIME: 04/10/2017 08:16 [facility] COMPARISON: CT PULMONARY ANGIOGRAM, April 05, 2017, 20:05. CHEST SINGLE AP, April 08, 2017, 4:32. INDICATIONS : Shortness of breath. MEDICAL HISTORY : Carcinoma, lung. Chronic obstructive pulmonary disease. Hypertension. SURGICAL HISTORY : None. ENCOUNTER: Subsequent ACUITY: 1 week PAIN SCORE: 0/10 LOCATION: Bilateral chest FINDINGS: A single view of the chest demonstrates extensive interstitial infiltrate/process in both hemithorace s, right much worse than left. Accounting for changes in technique, there may be some interval improv ement on the right side. Some fullness in the left hilar region is concordant with the findings on th e prior CT pulmonary angiogram could represent Central adenopathy/mass. CONCLUSION: 1. Bilateral predominantly interstitial process, right much worse than left. There may be slight inte rval improvement when compared to prior. 2. Fullness in the left perihilar distribution. Jaret Crouch MD on April 10, 2017 at 8:48 Board Certified Radiologist. This report was verified electronically.
[2017-04-10] MEDS: SODIUM CHLORIDE 0.9% FLUSH 10 ML FLUSH IV FLUSH SCH ×2 (09:00→20:46)
--- NOTE | 2017-04-10 09:49 | HHI.IDPN ---
Subjective Subjective Remarks Patient is a 61-year-old male, presented to the hospital complaining of one- week history of generalized weakness, as well as worsening shortness of breath. Denies any significant cough or sputum production. He was diagnosed to have lung cancer November 2016, and has received about 5 weeks of radiation therapy. He has not had any nausea or vomiting. Denies any chest pain. His initial chest x -ray showed a trace right base infiltrate. Patient was started on antibiotics for pneumonia. Late last night early childhood today, patient had deterioration with increasing shortness of breath and increasing oxygen requirement. His chest x-ray showed worsening infiltrates on the right side. He was transferred to the intensive care unit for closer monitoring. Patient has been requiring BiPAP for oxygenation. Patient has had fevers up to 101. Blood cultures are negative so far. Urine for Legionella and pneumococcal antigen are negative. Infectious disease consultation has been requested to evaluate the patient with worsening pneumonia Notes reviewed D/W RN Temps ok C/O thaat he is not getting any rest/sleep On PNRB mask Sputum with PSAE BC negative CXR with jackelin infiltrates worse on R than L, but improving Antibiotics Current Medications Cefepime IV Medications (Trade) Dose Ordered Sig/[place] Route Start Time Stop Time Status Last Admin (NS Flush) 2 ml UNSCH PRN IV FLUSH 04/05/17 22:00 (NS Flush) 2 ml BID IV FLUSH 04/06/17 09:00 04/09/17 22:28 (Zofran Inj) 4 mg Q6H PRN IVP 04/05/17 22:00 (Tylenol) 650 mg Q6H PRN PO 04/05/17 22:00 04/07/17 15:39 ([place] 5-325 Mg) 1 tab Q4H PRN PO 04/05/17 22:00 (Dilaudid Pf Inj) 1 mg Q3H PRN IV PUSH 04/05/17 22:00 04/09/17 23:02 (Nata-Colace) 1 tab BID PO 04/06/17 09:00 04/10/17 07:58 (Milk Of Magnesia Liq) 30 ml Q12H PRN PO 04/05/17 22:00 (Senokot) 17.2 mg Q12H PRN PO 04/05/17 22:00 (Dulcolax Supp) 10 mg DAILY PRN RECTAL 04/05/17 22:00 (Lactulose Liq) 30 ml DAILY PRN PO 04/05/17 22:00 (Mucinex Er) 600 mg BID PO 04/06/17 09:00 04/10/17 07:58 (Heparin Inj) 5,000 units Q12HR SQ 04/06/17 09:00 04/10/17 07:58 (Magic Mouthwash Adult Liq) 10 ml QID SWISH-SWAL 04/06/17 13:00 04/10/17 07:59 (SoluMEDROL INJ) 40 mg Q6H IV PUSH 04/07/17 15:00 04/10/17 07:58 (Protonix Inj) 40 mg DAILY IV PUSH 04/07/17 14:45 04/10/17 07:59 (Atrovent Neb) 0.5 mg Q6HR NEB NEB 04/08/17 10:00 04/10/17 09:26 (Atrovent Neb) 0.5 mg Q2HR NEB PRN NEB 04/08/17 06:00 Miscellaneous Information 1 Q361D XX 04/08/17 06:15 (Chlorhexidine 2% Cloth) 3 pack Taper DAILY@04 TOP 04/09/17 04:00 04/05/18 03:59 04/10/17 04:00 (Chlorhexidine 2% Cloth) 3 pack UNSCH PRN TOP 04/08/17 06:15 (Morphine Inj) 4 mg Q4HR PRN IV PUSH 04/08/17 06:30 04/09/17 17:22 Cefepime HCl 2000 mg/Sodium Chloride 100 ml @ 200 mls/hr Q8H IV 04/08/17 16:00 04/10/17 07:59 (Cardizem) 60 mg Q8HR PO 04/08/17 22:00 04/10/17 05:28 Dexmedetomidine HCl 1000 mcg/ Sodium Chloride 250 ml @ 2.79 mls/hr TITRATE PRN IV 04/09/17 22:30 04/10/17 00:16 (Ecotrin Ec) 81 mg DAILY PO 04/10/17 09:00 Potassium Chloride 100 ml @ 50 mls/hr Q2H PRN IV 04/10/17 08:00 Potassium Chloride 100 ml @ 50 mls/hr Q2H PRN IV 04/10/17 08:00 (K-Lyte Cl Eff) 50 meq UNSCH PRN PO 04/10/17 08:00 Potassium Chloride 100 ml @ 25 mls/hr UNSCH PRN IV 04/10/17 08:00 Potassium Chloride 100 ml @ 50 mls/hr Q2H PRN IV 04/10/17 08:00 Magnesium Sulfate 4 gm/Sodium Chloride 100 ml @ 50 mls/hr UNSCH PRN IV 04/10/17 08:00 (Mag-Ox) 800 mg UNSCH PRN PO 04/10/17 08:00 Magnesium Sulfate 2 gm/Sodium Chloride 100 ml @ 50 mls/hr UNSCH PRN IV 04/10/17 08:00 (K-Phos) 2,000 mg Q4H PRN PO 04/10/17 08:00 Sodium Phosphate 30 mmol/Sodium Chloride 250 ml @ 42 mls/hr UNSCH PRN IV 04/10/17 08:00 (K-Phos) 2,000 mg UNSCH PRN PO/TUBE 04/10/17 08:00 Potassium Phosphate 30 mmol/ Sodium Chloride 260 ml @ 42 mls/hr UNSCH PRN IV 04/10/17 08:00 (D50w (Vial) Inj) 50 ml UNSCH PRN IV PUSH 04/10/17 08:15 (Glucagon Inj) 1 mg UNSCH PRN OTHER 04/10/17 08:15 (NovoLIN R SUPPLEMENTAL SCALE) 1 Q6HR SQ 04/10/17 08:15 Lines PIV Past Medical History Lung CA Hypertension CAD COPD Tobacco Abuse Past Surgical History Abdominal surgery Allergies: Coded Allergies: No Known Allergies (Verified Allergy, Unknown, 04/05/17) Objective . Vital Signs Date Time Temp Pulse Resp B/P (MAP) Pulse Ox O2 Delivery O2 Flow Rate FiO2 04/10/17 07:34 100 Partial Rebreather 15.00 04/10/17 06:00 77 04/10/17 04:00 69 04/10/17 04:00 98.0 63 42 117/72 (87) 98 04/10/17 02:00 80 04/10/17 00:00 97.9 74 31 127/74 (91) 93 04/10/17 00:00 74 04/09/17 22:00 83 04/09/17 21:36 94 Partial Rebreather 15.00 04/09/17 20:00 97.7 82 26 97 04/09/17 20:00 82 04/09/17 19:15 99 Partial Non-Rebreather 45 04/09/17 18:00 91 04/09/17 17:00 91 27 99 04/09/17 17:00 91 04/09/17 16:00 97.9 87 31 98 04/09/17 16:00 87 04/09/17 15:35 87 04/09/17 15:35 87 28 125/71 (89) 99 04/09/17 15:00 77 41 100 04/09/17 15:00 77 04/09/17 14:50 97.1 85 18 115/66 100 04/09/17 14:32 97.9 90 28 115/66 100 04/09/17 14:00 99 44 99 04/09/17 14:00 99 04/09/17 13:00 90 31 100 04/09/17 13:00 90 04/09/17 12:00 97.9 88 31 99 04/09/17 12:00 88 04/09/17 10:00 85 32 90 04/09/17 10:00 99 Partial Rebreather 04/09/17 10:00 85 . Laboratory Tests Test 04/09/17 06:15 04/09/17 19:23 White Blood Count 5.9 TH/MM3 Red Blood Count 2.05 MIL/MM3 Hemoglobin 7.5 GM/DL 9.1 GM/DL Hematocrit 21.0 % 26.5 % Mean Corpuscular Volume 102.5 FL Mean Corpuscular Hemoglobin 36.5 PG Mean Corpuscular Hemoglobin Concent 35.6 % Red Cell Distribution Width 14.8 % Platelet Count 172 TH/MM3 Mean Platelet Volume 7.9 FL Neutrophils (%) (Auto) 90.5 % Lymphocytes (%) (Auto) 2.1 % Monocytes (%) (Auto) 7.3 % Eosinophils (%) (Auto) 0.0 % Basophils (%) (Auto) 0.1 % Neutrophils # (Auto) 5.3 TH/MM3 Lymphocytes # (Auto) 0.1 TH/MM3 Monocytes # (Auto) 0.4 TH/MM3 Eosinophils # (Auto) 0.0 TH/MM3 Basophils # (Auto) 0.0 TH/MM3 CBC Comment DIFF FINAL Differential Comment Laboratory Tests Test 04/08/17 17:01 04/09/17 06:15 Troponin I 2.58 NG/ML Blood Urea Nitrogen 16 MG/DL Creatinine 0.81 MG/DL Random Glucose 139 MG/DL Total Protein 5.9 GM/DL Albumin 1.8 GM/DL Calcium Level 8.1 MG/DL Alkaline Phosphatase 90 U/L Aspartate Amino Transf (AST/SGOT) 19 U/L Alanine Aminotransferase (ALT/SGPT) 19 U/L Total Bilirubin 0.5 MG/DL Sodium Level 137 MEQ/L Potassium Level 3.3 MEQ/L Chloride Level 102 MEQ/L Carbon Dioxide Level 26.7 MEQ/L Anion Gap 8 MEQ/L Estimat Glomerular Filtration Rate 97 ML/MIN Microbiology Date/Time Source Procedure Growth Status 04/07/17 13:23 Sputum Expectorated Sputum Gram Stain - Final Complete 04/07/17 13:23 Sputum Culture - Final Pseudomonas Aeruginosa Complete Imaging Chest X-Ray 04/10/17 0000 Signed Impressions: Service Date/Time: Monday, April 10, 2017 08:16 - CONCLUSION: 1. Bilateral predominantly interstitial process, right much worse than left. There may be slight interval improvement when compared to prior. 2. Fullness in the left perihilar distribution. Jaret Crouch MD Chest X-Ray 04/08/17 0000 Signed Impressions: Service Date/Time: Saturday, April 08, 2017 04:32 - CONCLUSION: New coarse infiltrate in the right lung most characteristic of pneumonia. Willy Pantoja MD CT Angiography 04/05/17 0000 Signed Impressions: Service Date/Time: Wednesday, April 05, 2017 20:05 - CONCLUSION: 1. No pulmonary embolus. 2. Patchy bilateral pneumonia as above. 3. Vague left hilar mass concerning for carcinoma. 4. Upper limits of normal to mildly enlarged mediastinal lymph nodes. 5. Coronary artery calcification. Dmitri Manuel MD Physical Exam GENERAL: awake and alert, not in respiratory distress. On PNRB mask SKIN: Cool and dry. No generalized rash, no ecchymoses HEAD: Atraumatic. Normocephalic. No temporal wasting, or tenderness. EYES: Dale conjunctiva. No petechia or hemorrhage. Pupils equal, round and reactive to light. Extraocular movements full and intact. No scleral icterus. EARS, NOSE AND THROAT: Nose without bleeding or purulent nasal discharge. No sinus tenderness. Dry oral mucosa. Has ulcer under R side of tongue CARDIOVASCULAR: Regular rate and rhythm. No murmurs, rubs or gallops heard RESPIRATORY: Coarse BS bilaterally, decreased on R side. No rales, wheezing or rhonchi ABDOMEN: Soft, non-tender, nondistended. Bowel sounds present and normoactive. No guarding. No rebound. No organomegaly. EXTREMITIES: No clubbing, cyanosis, or edema. No calf tenderness. Well perfused and warm. NEUROLOGICAL: Non-focal PSYCHIATRIC: Normal affect, calm and cooperative. LINE: No evidence of infection Assessment & Plan Remarks IMPRESSION Sepsis, due to PNA - better PNA, C/S PSAE CAP, worsening patient with newly Dx lung CA, S/P XRT COPD Respiratory failure RECOMMENDATION Continue Cefepime IV Stop Zithromax Monitor respiratory status Follow temps Monitor progress Dr Fela Valdez available if needed this weekend Audrey Zamora MD Apr 10, 2017 09:49
[2017-04-10] MEDS: ASPIRIN EC 81 MG TABEC PO SCH (11:42)
[2017-04-10 12:36] LABS: AUTOMATED NEUTROPHIL # 4.9 TH/MM3 (1.8-7.7); BASOPHIL % 0.1 % (0.0-2.0); HEMO FLAGS DIFF FINAL; LYMPH % 1.8 % (9.0-44.0); LYMPHOCYTE # 0.1 TH/MM3 (1.0-4.8); MEAN CELL VOLUME 96.3 FL (80.0-100.0); MEAN CORPUSCULAR HGB CONC 35.3 % (32.0-36.0); MONO % 8.6 % (0.0-8.0); NEUT % 89.5 % (16.0-70.0); PLATELET COUNT 163 TH/MM3 (150-450); RED CELL DISTRIBUTION WIDTH 18.2 % (11.6-17.2); WHITE BLOOD COUNT 5.5 TH/MM3 (4.0-11.0)
[2017-04-10 12:58] LABS: BICARBONATE 25.3 MEQ/L (21.0-32.0); MAGNESIUM 1.9 MG/DL (1.5-2.5); POTASSIUM 4.1 MEQ/L (3.5-5.1)
[2017-04-10] MEDS ORDERED: NICOTINE 7 MG/24 HR PATCH T-DERMAL ONE (14:30)
[2017-04-10] MEDS: REMOVE OLD PATCH T-DERMAL SCH (15:04)
[2017-04-10] MEDS: FUROSEMIDE 40 MG/4 ML VIAL IV PUSH SCH (15:29)
--- NOTE | 2017-04-10 16:28 | HHI.HCPN ---
Reason for visit a. To assist with evaluation and management of symptoms including: shortness of breath, agitation, decreased oral intake, physical deconditioning b. To assist medical decision maker(s) with: better understanding of current medical conditions; weighing benefits/burdens of medical treatment options; making medical treatment decisions. Subjective/Interval History Mr Adams is a 61 years old male with a past medical history of lung cancer, COPD, hypertension, CAD and tobacco use. Patient was diagnosed with lung cancer in November, and he underwent 5 weeks of radiation and pending chemotherapy treatment, though patient`s states that he did have 1 treatment of chemotherapy. Patient currently resides in a transitional home. Patient was accompanied by his friends to the ER on 04/05/17 complaining of shortness on breath, worsening weakness, fatigue and poor appetite for 5 days prior to ER visit. Patient seen in his room, awake and oriented to person, place and situation. Patient still complaining that he has to eat pureed diet. Speech therapy following , was seen and evaluated today and they still recommend puree diet and honey thick fluids with no straw. ST recommending speech therapy after discharge. Denies pain. Patient on a partial non-rebreather FiO2 45%, O2 saturation in the mid to high 90s. Patient is afebrile. HR 80s-low 100s. SBP low 100s-140s. Verbalizes that his breathing is much better though he still is occasionally coughing. Patient remains on a Precedex infusion. Cardizem infusion now discontinued, patient started on p.o Cardizem. Laboratory workup today revealing WBC5.5, Hgb 9.2, Hct 26.0, plt count 163, sodium 136, potassium 4.1, BUN/Creat 25/0.94, phosphorous 2.4, troponin 0.68, BNP 819. Chest X ray today revealing bilateral predominantly interstitial process, right much worse than left. Slight interval improvement. Fullness in left perihilar distribution. Patient states that he wants to get out of bed and walk around. Patient verbalizing that he feels much better than he did when he came in. Case discussed with bedside RN Isabella . Family/friend interactions No family at bedside. . Advance Directives Health Care Surrogate: Copy in medical record Advance Directive Specifics Date completed: 04/08/2017- [facility] . Health Care Surrogate(s): HCS- (Long time friend-15 yrs) Kay Rizvi [phone] Alternate [facility]- Cousin- Dahiana Mayorga [phone] . Objective Vital Signs Date Time Temp Pulse Resp B/P (MAP) Pulse Ox O2 Delivery O2 Flow Rate FiO2 04/10/17 12:00 111 04/10/17 12:00 111 32 128/79 (95) 95 04/10/17 11:00 85 04/10/17 11:00 85 24 118/83 (95) 99 04/10/17 10:01 85 04/10/17 10:01 85 25 146/63 (90) 100 04/10/17 10:00 89 46 90 04/10/17 10:00 89 04/10/17 09:00 82 04/10/17 09:00 82 23 131/72 (91) 100 04/10/17 08:00 98 Partial Non-Rebreather 15.00 45 04/10/17 08:00 81 04/10/17 08:00 81 26 122/65 (84) 97 04/10/17 07:34 100 Partial Rebreather 15.00 04/10/17 06:00 77 04/10/17 04:00 69 04/10/17 04:00 98.0 63 42 117/72 (87) 98 04/10/17 02:00 80 04/10/17 00:00 97.9 74 31 127/74 (91) 93 04/10/17 00:00 74 04/09/17 22:00 83 04/09/17 21:36 94 Partial Rebreather 15.00 04/09/17 20:00 97.7 82 26 97 04/09/17 20:00 82 04/09/17 19:15 99 Partial Non-Rebreather 45 04/09/17 18:00 91 04/09/17 17:00 91 27 99 04/09/17 17:00 91 Intake & Output 04/10/17 04/10/17 07:00 19:00 Intake Total 580 ml Output Total 400 ml Balance 180 ml Intake Oral 180 ml IV Total 400 ml Output Urine Total 400 ml Physical Exam CONSTITUTIONAL/GENERAL: This is an ill-looking patient, who looks older than stated age.Patient looks pale. TUBES/LINES/DRAINS:BiPAP,SCDs, PIVs, FC SKIN: Pale. Ecchymoses on upper extremities. No wounds seen anteriorly. Skin temperature appropriate. Not diaphoretic. HEAD: Atraumatic. Normocephalic. EYES: Pupils equal and round and reactive. Extraocular motions intact. No injection or drainage. Fundi not examined. ENT: Hearing grossly normal. Nose without bleeding or purulent drainage. Moist oral mucosa NECK: Trachea midline. Supple, nontender. CARDIOVASCULAR: Irregular rate and rhythm without murmurs, gallops, or rubs. No JVD. Peripheral pulses symmetric. RESPIRATORY/CHEST: Symmetric,mildly labored respirations. Rhonchi to auscultation. Breath sounds equal bilaterally. No wheezes. GASTROINTESTINAL: Abdomen soft, non-tender, nondistended. No guarding. Bowel sounds present. GENITOURINARY: Without palpable bladder distension. Dockery catheter in place. MUSCULOSKELETAL: Extremities without clubbing, cyanosis, or edema. No joint tenderness or effusion noted. No calf tenderness. No mottling or clubbing. NEUROLOGICAL: Awake, alert and oriented to self, place and situation. Motor and sensory grossly within normal limits. Follows commands. Moves all extremities. PSYCHIATRIC: Calm. No obvious anxiety/depression. no apparent hallucinations or other psychotic thought process. . Diagnostic Tests Laboratory Laboratory Tests Test 04/08/17 01:30 04/08/17 04:58 04/08/17 06:30 04/08/17 06:45 Vancomycin Level Trough 16.9 MCG/ML (5.0-10.0) White Blood Count 5.9 TH/MM3 (4.0-11.0) Red Blood Count 2.56 MIL/MM3 (4.50-5.90) Hemoglobin 8.7 GM/DL (13.0-17.0) Hematocrit 26.0 % (39.0-51.0) Mean Corpuscular Volume 101.6 FL (80.0-100.0) Mean Corpuscular Hemoglobin 33.8 PG (27.0-34.0) Mean Corpuscular Hemoglobin Concent 33.3 % (32.0-36.0) Red Cell Distribution Width 14.7 % (11.6-17.2) Platelet Count 222 TH/MM3 (150-450) Mean Platelet Volume 7.8 FL (7.0-11.0) Neutrophils (%) (Auto) 93.0 % (16.0-70.0) Lymphocytes (%) (Auto) 2.0 % (9.0-44.0) Monocytes (%) (Auto) 4.8 % (0.0-8.0) Eosinophils (%) (Auto) 0.0 % (0.0-4.0) Basophils (%) (Auto) 0.2 % (0.0-2.0) Neutrophils # (Auto) 5.5 TH/MM3 (1.8-7.7) Lymphocytes # (Auto) 0.1 TH/MM3 (1.0-4.8) Monocytes # (Auto) 0.3 TH/MM3 (0-0.9) Eosinophils # (Auto) 0.0 TH/MM3 (0-0.4) Basophils # (Auto) 0.0 TH/MM3 (0-0.2) CBC Comment DIFF FINAL Differential Comment Blood Urea Nitrogen 10 MG/DL (7-18) Creatinine 0.99 MG/DL (0.60-1.30) Random Glucose 202 MG/DL (74-106) Calcium Level 8.6 MG/DL (8.5-10.1) Sodium Level 135 MEQ/L (136-145) Potassium Level 3.8 MEQ/L (3.5-5.1) Chloride Level 106 MEQ/L (98-107) Carbon Dioxide Level 18.1 MEQ/L (21.0-32.0) Anion Gap 11 MEQ/L (5-15) Estimat Glomerular Filtration Rate 77 ML/MIN (>89) B-Type Natriuretic Peptide 1262 PG/ML (0-100) Blood Gas Puncture Site LT BRACHIAL Blood Gas Patient Temperature 98.6 Blood Gas HCO3 16 mmol/L (22-26) Blood Gas Base Excess -8.4 mmol/L (-2-2) Blood Gas Oxygen Saturation 91 % (90-100) Arterial Blood pH 7.34 (7.380-7.420) Arterial Blood Partial Pressure CO2 31 mmHg (38-42) Arterial Blood Partial Pressure O2 75 mmHg (61-120) Arterial Blood Oxygen Content 12.0 Vol % (12.0-20.0) Arterial Blood Carboxyhemoglobin 0.8 % (0-4) Arterial Blood Methemoglobin 1.1 % (0-2) Blood Gas Hemoglobin 9.3 G/DL (12.0-16.0) Oxygen Delivery Device BiPAP Blood Gas Ventilator Setting 15IPAP/5EPAP Blood Gas Inspired Oxygen 45 % Nasal Screen MRSA (PCR) MRSA NOT DETECTED (NOT Test 04/08/17 17:01 04/09/17 06:15 04/09/17 19:23 04/10/17 11:37 Troponin I 2.58 NG/ML (0.02-0.05) 0.68 NG/ML (0.02-0.05) White Blood Count 5.9 TH/MM3 (4.0-11.0) 5.5 TH/MM3 (4.0-11.0) Red Blood Count 2.05 MIL/MM3 (4.50-5.90) 2.70 MIL/MM3 (4.50-5.90) Hemoglobin 7.5 GM/DL (13.0-17.0) 9.1 GM/DL (13.0-17.0) 9.2 GM/DL (13.0-17.0) Hematocrit 21.0 % (39.0-51.0) 26.5 % (39.0-51.0) 26.0 % (39.0-51.0) Mean Corpuscular Volume 102.5 FL (80.0-100.0) 96.3 FL (80.0-100.0) Mean Corpuscular Hemoglobin 36.5 PG (27.0-34.0) 34.0 PG (27.0-34.0) Mean Corpuscular Hemoglobin Concent 35.6 % (32.0-36.0) 35.3 % (32.0-36.0) Red Cell Distribution Width 14.8 % (11.6-17.2) 18.2 % (11.6-17.2) Platelet Count 172 TH/MM3 (150-450) 163 TH/MM3 (150-450) Mean Platelet Volume 7.9 FL (7.0-11.0) 8.0 FL (7.0-11.0) Neutrophils (%) (Auto) 90.5 % (16.0-70.0) 89.5 % (16.0-70.0) Lymphocytes (%) (Auto) 2.1 % (9.0-44.0) 1.8 % (9.0-44.0) Monocytes (%) (Auto) 7.3 % (0.0-8.0) 8.6 % (0.0-8.0) Eosinophils (%) (Auto) 0.0 % (0.0-4.0) 0.0 % (0.0-4.0) Basophils (%) (Auto) 0.1 % (0.0-2.0) 0.1 % (0.0-2.0) Neutrophils # (Auto) 5.3 TH/MM3 (1.8-7.7) 4.9 TH/MM3 (1.8-7.7) Lymphocytes # (Auto) 0.1 TH/MM3 (1.0-4.8) 0.1 TH/MM3 (1.0-4.8) Monocytes # (Auto) 0.4 TH/MM3 (0-0.9) 0.5 TH/MM3 (0-0.9) Eosinophils # (Auto) 0.0 TH/MM3 (0-0.4) 0.0 TH/MM3 (0-0.4) Basophils # (Auto) 0.0 TH/MM3 (0-0.2) 0.0 TH/MM3 (0-0.2) CBC Comment DIFF FINAL DIFF FINAL Differential Comment Blood Urea Nitrogen 16 MG/DL (7-18) 25 MG/DL (7-18) Creatinine 0.81 MG/DL (0.60-1.30) 0.94 MG/DL (0.60-1.30) Random Glucose 139 MG/DL (74-106) 146 MG/DL (74-106) Total Protein 5.9 GM/DL (6.4-8.2) Albumin 1.8 GM/DL (3.4-5.0) Calcium Level 8.1 MG/DL (8.5-10.1) 8.3 MG/DL (8.5-10.1) Alkaline Phosphatase 90 U/L (45-117) Aspartate Amino Transf (AST/SGOT) 19 U/L (15-37) Alanine Aminotransferase (ALT/SGPT) 19 U/L (12-78) Total Bilirubin 0.5 MG/DL (0.2-1.0) Sodium Level 137 MEQ/L (136-145) 136 MEQ/L (136-145) Potassium Level 3.3 MEQ/L (3.5-5.1) 4.1 MEQ/L (3.5-5.1) Chloride Level 102 MEQ/L (98-107) 104 MEQ/L (98-107) Carbon Dioxide Level 26.7 MEQ/L (21.0-32.0) 25.3 MEQ/L (21.0-32.0) Anion Gap 8 MEQ/L (5-15) 7 MEQ/L (5-15) Estimat Glomerular Filtration Rate 97 ML/MIN (>89) 81 ML/MIN (>89) Phosphorus Level 2.4 MG/DL (2.5-4.9) Magnesium Level 1.9 MG/DL (1.5-2.5) B-Type Natriuretic Peptide 819 PG/ML (0-100) Result Diagram: 04/10/17 1137 04/10/17 1137 Imaging Last 24 hours Impressions Chest X-Ray 04/10/17 0000 Signed Impressions: Service Date/Time: Monday, April 10, 2017 08:16 - CONCLUSION: 1. Bilateral predominantly interstitial process, right much worse than left. There may be slight interval improvement when compared to prior. 2. Fullness in the left perihilar distribution. Jaret Crouch MD Assessment and Plan Disease Oriented Problem List: (1) Sepsis (2) Lung cancer (3) Bilateral pneumonia (4) Severe protein-calorie malnutrition (5) Tobacco use (6) Sore throat Symptom Scale: (1) Shortness of breath 0-10 Scale: Unable to quantify Comment: Multifactorial. Patient has a history of lung cancer. Reports that he has been having persistent dyspnea with exertion at home, unable to ambulate for a long distance due to dyspnea. Chest x-ray showed a trace right base infiltrate. Came in with c/o shortness of breath. Dyspneic with conversation. Patient started on antibiotics. Patient received Lasix. Patient is on solumedrol 40mg q 6 hrs, Guaifenesin 600mg BID. . (2) Decreased oral intake 0-10 Scale: Unable to quantify Comment: Patient reporting that he has had poor appetite. Swallow evaluation done- patient on a pureed diet with honey thick consistency and no straws. . (3) Agitation 0-10 Scale: Unable to quantify Comment: Patient has a history of COPD, he has worsening respiratory status and was getting agitated. (4) Physical deconditioning 0-10 Scale: Unable to quantify Pertinent Non-Medical Issues Psychosocial:Patient was born and raised in [place]. He left [place] the age of 20. Patient moved to [place] in 1975. Patient has a 2 years college degree in electronics technology. 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 Patient was and twice. He never had children. Spiritual:No religion affiliation Legal: Patient signed HCS form today. Ethical issues impacting care: None identified at this time. . Important Contacts HCS- (Long time friend-15 yrs) Kay Rizvi [phone] Alternate HCS- Cousin- Dahiana Mayorga [phone] . Prognosis Mr Adams is a 61 years old male with a past medical history of lung cancer, COPD, hypertension, CAD and tobacco use. Patient was diagnosed with lung cancer in November, and he underwent 5 weeks of radiation and pending chemotherapy treatment, though patient`s states that he did have 1 treatment of chemotherapy. Patient currently resides in a transitional home. Patient was accompanied by his friends to the ER on 04/05/17 complaining of shortness on breath, worsening weakness, fatigue and poor appetite for 5 days prior to ER visit. Clinical course complicated with persistent shortness of breath, and Afib with RVR. Given ongoing comorbidities, patient remains at risk for complications, deterioration and decline. . Code Status: No Code Plan PLAN: Legal decision maker: Patient appears to have insight and judgement of his condition at this time and is able to make his own medical decisions. In the event that he is incapacitated, patient designated his long time friend Kay Rizvi as his healthcare surrogate and his cousin Dahiana Mayorga and his alternate HCS. Goals: 04/10/17- Remain aggressive short of no code. CODE STATUS: DNR/DNI SYMPTOMS: * Shortness of breath: Multifactorial. Patient has a history of lung cancer. Reports that he has been having persistent dyspnea with exertion at home, unable to ambulate for a long distance due to dyspnea. Chest x-ray showed a trace right base infiltrate. Came in with c/o shortness of breath. Patient remains on a partial non-rebreather. Reports of easily desaturating when he takes of the mask. Patient on antibiotics. Sputum positive for Pseudomonas Aeruginosa. Patient received Lasix. Patient is on solumedrol 40mg q 6 hrs, Guaifenesin 600mg BID. * Decreased PO Intake: Multifactorial. Patient states that he has to provide himself with food whilst living in a transitional home and unfortunately he does not like what they serve him. Patient also endorsing sore throat. Patient reporting that he has had poor appetite. Speech therapy consulted. Recommended puree diet and honey thick fluids with no straw. ST recommending speech therapy after discharge. Patient does not like puree diet. * Agitation: Patient has a history of COPD, he has worsening respiratory status and was getting agitated. Patient remains on a Precedex infusion. Patient complaining that he does not like pureed diet. Currently calm. * Physical deconditioning : Multifactorial. Patient lives in a transitional home and he reports that he has to provide food for himself otherwise he does not like what they serve. Patient c/o of unable to ambulate for long distances due to increased shortness of breath. He continues to smoke cigarettes despite SOB. Patient has muscle wasting and reports that he has significantly lost weight since he was diagnosed with lung cancer. Patient also endorsing sore throat. Patient may benefit from physical therapy if goals do not change though it can be difficulty for him to fully participate due to dyspnea. Total protein= 5.9, Albumin=1.8. Palliative care will continue to follow the patient during hospital course as condition evolves, to assist patient/decision-maker with understanding of their medical conditions, weighing benefits/burdens of treatment options, for clarification of goals of treatment. Additionally will assist with any symptoms of palliative concern Randa Tenorio Apr 10, 2017 16:28
[2017-04-10] MEDS: MORPHINE SULFATE 4 MG/ML INJ IV PUSH PRN (22:35)
[2017-04-11] VITALS (27 sets, daily range): BP systolic 127–190; BP diastolic 68–102; PULSE 74–140; RESP 15–39; TEMP 97.7–98.2; O2SAT 67–100
[2017-04-11] MEDS: CEFEPIME 2000 MG/NS 100 ML IV SCH ×8 (00:26→23:14)
[2017-04-11] MEDS: INSULIN NovoLIN REGULAR SUPPLEMENTAL SCALE SQ SCH ×5 (00:27→23:15)
[2017-04-11] MEDS ORDERED: PHARMACY ORDERED LAB ONE (01:45)
[2017-04-11] MEDS: methylPREDNISolone SOD SUCC 40 MG/1 ML VIAL IV PUSH SCH ×3 (03:00→19:44)
[2017-04-11] MEDS: CHLORHEXIDINE GLUCONATE 2 % 1 PACK (2 CLOTHS) TOP SCH (04:00)
[2017-04-11] MEDS: RESP: IPRATROPIUM 0.5 MG/2.5 ML NEB NEB SCH ×4 (04:33→20:29)
[2017-04-11] MEDS: DEXMEDETOMIDINE INJ 1,000 MCG in SODIUM CHLOR 0.9% 250 ML INJ 240 ML IV PRN (04:50)
[2017-04-11 06:01] LABS: HEMATOCRIT 25.6 % (39.0-51.0); MEAN CELL VOLUME 95.9 FL (80.0-100.0); MEAN CORPUSCULAR HEMOGLOBIN 33.2 PG (27.0-34.0); MEAN CORPUSCULAR HGB CONC 34.6 % (32.0-36.0); PLATELET COUNT 152 TH/MM3 (150-450); RED BLOOD COUNT 2.67 MIL/MM3 (4.50-5.90); RED CELL DISTRIBUTION WIDTH 17.5 % (11.6-17.2); WHITE BLOOD COUNT 6.9 TH/MM3 (4.0-11.0)
[2017-04-11 06:03] LABS: HEMO FLAGS AUTO DIFF
[2017-04-11 06:16] LABS: POTASSIUM 3.4 MEQ/L (3.5-5.1)
[2017-04-11] MEDS: DILTIAZEM HCL 60 MG TAB PO SCH ×3 (06:53→22:38)
[2017-04-11 07:34] LABS: BANDS 5 % (0-6); NEUTROPHIL # MANUAL DIFF 6.3 TH/MM3 (1.8-7.7); POLYS (SEG NEUTROPHILS) 86 % (16-70); WBC DIFF SAMPLE 100
[2017-04-11 07:35] LABS: OVALOCYTES 1+ (NORMAL); PLATELET ESTIMATE SMEAR NORMAL (NORMAL); PLATELET MORPHOLOGY NORMAL (NORMAL); SCAN/DIFF FINAL DIFF MANUAL; TOXIC GRANULATION 1+ (NORMAL)
--- NOTE | 2017-04-11 08:13 | HHI.CCPN ---
Subjective Remarks/Hospital Course 03/09: This is a 61-year-old male with a PMH of Lung CA, HTN, CAD, COPD and Tobacco Abuse who was admitted on 04/06 by hospitalist service secondary to complaints of generalized weakness and SOB x1 wk and decreased PO intake. Recently diagnosed w/ Lung CA in November 2016, has completed 5wks of Radiation, pending Chemotherapy. States symptoms have been getting progressively worse. Denies fever, chills, nausea, vomiting or diarrhea. On arrival, BP 117/64, HR 133, O2 sat 97% on 2L NC, Temp 101.1. WBC normal however elevated neutrophil count. Creatinine 1.53, previously 0.86 on 09/25/16. Troponin negative. Lactic Acid normal. INR 1.1. CXR with trace right basilar infiltrate. CTA Pulm negative for PE, patchy bilateral pneumonia, left hilar mass concerning for carcinoma. Patient developed worsening respiratory distress and A. fib with RVR so was transferred to the ICU on morning of 04/08. He was placed on BiPAP and Cardizem drip and critical care was consulted for worsening respiratory failure and A. fib with RVR. I evaluated the patient on being notified immediately. At that time he was on BiPAP with full facemask and extremely agitated and anxious. He was given Ativan and morphine and subsequently started on a Precedex drip and BiPAP settings were adjusted. He was also given Lasix for diuresis as his chest x-ray suggested pulmonary edema and he had an elevated BNP. History was obtained by reviewing records and discussion with Dr. Lau 03/10: Breathing improved with diuresis yesterday. Still on nonrebreather facemask Patient awake and alert. Feeling hungry this afternoon at the time of my evaluation. Was awaiting PRBC transfusion. 04/10 Patient is on partial rebreather awake and alert. On Precedex drip. Afebrile. Off Cardizem drip. 04/11 No events overnight. Remains on Precedex drip. Objective Vital Signs Date Time Temp Pulse Resp B/P (MAP) Pulse Ox O2 Delivery O2 Flow Rate FiO2 04/11/17 06:00 79 04/11/17 04:00 97.9 23 161/94 (116) 98 04/10/17 21:11 Non-Rebreather 04/10/17 19:00 15.00 45 Intake and Output 04/11/17 04/11/17 04/12/17 08:00 16:00 00:00 Intake Total 750 ml Output Total 1400 ml Balance -650 ml Result Diagram: 04/11/17 0519 04/11/17 0519 Other Results Laboratory Tests Test 04/10/17 11:37 04/10/17 15:41 04/10/17 19:57 04/11/17 05:19 White Blood Count 5.5 TH/MM3 6.9 TH/MM3 Red Blood Count 2.70 MIL/MM3 2.67 MIL/MM3 Hemoglobin 9.2 GM/DL 8.8 GM/DL Hematocrit 26.0 % 25.6 % Mean Corpuscular Volume 96.3 FL 95.9 FL Mean Corpuscular Hemoglobin 34.0 PG 33.2 PG Mean Corpuscular Hemoglobin Concent 35.3 % 34.6 % Red Cell Distribution Width 18.2 % 17.5 % Platelet Count 163 TH/MM3 152 TH/MM3 Mean Platelet Volume 8.0 FL 8.3 FL Neutrophils (%) (Auto) 89.5 % Lymphocytes (%) (Auto) 1.8 % Monocytes (%) (Auto) 8.6 % Eosinophils (%) (Auto) 0.0 % Basophils (%) (Auto) 0.1 % Neutrophils # (Auto) 4.9 TH/MM3 Lymphocytes # (Auto) 0.1 TH/MM3 Monocytes # (Auto) 0.5 TH/MM3 Eosinophils # (Auto) 0.0 TH/MM3 Basophils # (Auto) 0.0 TH/MM3 CBC Comment DIFF FINAL AUTO DIFF Differential Comment FINAL DIFF MANUAL Blood Urea Nitrogen 25 MG/DL 28 MG/DL Creatinine 0.94 MG/DL 0.91 MG/DL Random Glucose 146 MG/DL 153 MG/DL Calcium Level 8.3 MG/DL 8.0 MG/DL Phosphorus Level 2.4 MG/DL 4.8 MG/DL Magnesium Level 1.9 MG/DL Sodium Level 136 MEQ/L 136 MEQ/L Potassium Level 4.1 MEQ/L 3.4 MEQ/L Chloride Level 104 MEQ/L 100 MEQ/L Carbon Dioxide Level 25.3 MEQ/L 26.0 MEQ/L Anion Gap 7 MEQ/L 10 MEQ/L Estimat Glomerular Filtration Rate 81 ML/MIN 84 ML/MIN Troponin I 0.68 NG/ML 0.68 NG/ML 0.63 NG/ML B-Type Natriuretic Peptide 819 PG/ML Differential Total Cells Counted 100 Neutrophils % (Manual) 86 % Band Neutrophils % 5 % Lymphocytes % 4 % Monocytes % 5 % Neutrophils # (Manual) 6.3 TH/MM3 Toxic Granulation 1+ Platelet Estimate NORMAL Platelet Morphology Comment NORMAL Ovalocytes 1+ Imaging Last Impressions Chest X-Ray 04/10/17 0000 Signed Impressions: Service Date/Time: Monday, April 10, 2017 08:16 - CONCLUSION: 1. Bilateral predominantly interstitial process, right much worse than left. There may be slight interval improvement when compared to prior. 2. Fullness in the left perihilar distribution. Jaret Crouch MD CT Angiography 04/05/17 0000 Signed Impressions: Service Date/Time: Wednesday, April 05, 2017 20:05 - CONCLUSION: 1. No pulmonary embolus. 2. Patchy bilateral pneumonia as above. 3. Vague left hilar mass concerning for carcinoma. 4. Upper limits of normal to mildly enlarged mediastinal lymph nodes. 5. Coronary artery calcification. Dmitri Manuel MD Objective Remarks GENERAL: PAtient is lying in bed in NAD SKIN: Warm and dry. HEAD: Normocephalic. EYES: No scleral icterus. No injection or drainage. NECK: Supple, trachea midline. No JVD or lymphadenopathy. CARDIOVASCULAR: Regular rate and rhythm without murmurs, gallops, or rubs. RESPIRATORY: Breath sounds equal bilaterally. No accessory muscle use. GASTROINTESTINAL: Abdomen soft, non-tender, nondistended. MUSCULOSKELETAL: No cyanosis, or edema. BACK: Nontender without obvious deformity. No CVA tenderness. Neuro: Awake and alert. A/P Assessment and Plan 61-year-old male with: Severe sepsis Pneumonia COPD exacerbation Pulmonary edema Non-ST elevation DE A. fib with RVR-now in RSR Lung cancer Hypertension Plan: Neuro: Wean off Precedex drip. Monitor neuro status. Ativan and morphine when necessary as needed. CV: Monitor HR and BP keep MAP>65mmHg Monitor trop, Echo showed EF 50-55%, Cards is following- Dr. Nava Continue with Cardizem 60mg Q8, ASA Pulm: Wean down oxygen as moise keep sat >92% Bronchodilators, NIPPV PRN for resp distress Decrease Solumederol 40mg Q12, GI/liver: On PO diet Renal/: Monitor renal function, electrolytes replacement per protocol. Needs K replacement today On Lasix 40mg daily ID: Continue abx per ID ( cefepime) ID is following. Monitor for signs of infections ( Fever, WBC) Sputum 04/07: Pseudomonas Heme-onc: Follow CBC and coags. History of lung cancer status post previous radiation therapy. One unit PRBC transfused 04/09 Endocrine: SSI for glycemic control Prophylaxis: Pepcid/SCDs/subcutaneous Lovenox Palliative care is following level 3 Rachel Otero MD Apr 11, 2017 08:13
[2017-04-11] MEDS: ASPIRIN EC 81 MG TABEC PO SCH (08:20)
[2017-04-11] MEDS: DOCUSATE SODIUM 50 MG/SENNA 8.6 MG TAB PO SCH ×2 (08:20→19:45)
[2017-04-11] MEDS: NYSTAT/DIPHENHY/LIDO MOUTHWASH (Adult) 120ML SWISH-SWAL SCH ×4 (08:20→21:00)
[2017-04-11] MEDS: guaiFENesin E.R. 600 MG TAB PO SCH ×2 (08:20→19:45)
[2017-04-11] MEDS: PANTOPRAZOLE SODIUM 40 MG VIAL IV PUSH SCH (08:21)
[2017-04-11] MEDS: SODIUM CHLORIDE 0.9% FLUSH 10 ML FLUSH IV FLUSH SCH ×2 (08:29→19:45)
[2017-04-11] MEDS: HEPARIN SODIUM - SQ 10,000 UNITS/ML VIAL SQ SCH ×2 (08:29→19:45)
[2017-04-11] MEDS: FUROSEMIDE 40 MG/4 ML VIAL IV PUSH SCH (08:29)
[2017-04-11] MEDS: REMOVE OLD PATCH T-DERMAL SCH (09:00)
[2017-04-11] MEDS: MORPHINE SULFATE 4 MG/ML INJ IV PUSH PRN ×2 (12:54→19:57)
[2017-04-11] MEDS ORDERED: METOPROLOL TARTRATE 5 MG/5 ML VIAL IV PUSH PRN (17:30)
[2017-04-11] MEDS: METOPROLOL TARTRATE 50 MG TAB PO SCH (19:45)
[2017-04-12] VITALS (14 sets, daily range): BP systolic 130–161; BP diastolic 70–92; PULSE 70–104; RESP 16–41; TEMP 97.5–98.5; O2SAT 92–97
[2017-04-12] MEDS: RESP: IPRATROPIUM 0.5 MG/2.5 ML NEB NEB SCH ×4 (03:30→20:05)
[2017-04-12] MEDS: CHLORHEXIDINE GLUCONATE 2 % 1 PACK (2 CLOTHS) TOP SCH (04:00)
[2017-04-12] MEDS: MORPHINE SULFATE 4 MG/ML INJ IV PUSH PRN ×2 (06:19→10:59)
[2017-04-12] MEDS: DILTIAZEM HCL 60 MG TAB PO SCH ×3 (06:20→21:34)
[2017-04-12] MEDS: INSULIN NovoLIN REGULAR SUPPLEMENTAL SCALE SQ SCH ×3 (06:20→17:36)
[2017-04-12] MEDS: CEFEPIME 2000 MG/NS 100 ML IV SCH ×4 (06:20→16:08)
[2017-04-12 07:00] LABS: AUTOMATED NEUTROPHIL # 7.8 TH/MM3 (1.8-7.7); BASOPHIL # 0.1 TH/MM3 (0-0.2); BASOPHIL % 0.8 % (0.0-2.0); HEMATOCRIT 23.6 % (39.0-51.0); HEMO FLAGS DIFF FINAL; LYMPH % 1.7 % (9.0-44.0); LYMPHOCYTE # 0.1 TH/MM3 (1.0-4.8); MEAN CELL VOLUME 96.7 FL (80.0-100.0); MEAN CORPUSCULAR HEMOGLOBIN 34.3 PG (27.0-34.0); MEAN CORPUSCULAR HGB CONC 35.5 % (32.0-36.0); NEUT % 91.5 % (16.0-70.0); PLATELET COUNT 156 TH/MM3 (150-450); RED BLOOD COUNT 2.44 MIL/MM3 (4.50-5.90); RED CELL DISTRIBUTION WIDTH 17.5 % (11.6-17.2); WHITE BLOOD COUNT 8.6 TH/MM3 (4.0-11.0)
[2017-04-12 07:23] LABS: BICARBONATE 30.4 MEQ/L (21.0-32.0); POTASSIUM 3.5 MEQ/L (3.5-5.1)
--- NOTE | 2017-04-12 07:25 | HHI.CCPN ---
Subjective Remarks/Hospital Course 03/09: This is a 61-year-old male with a PMH of Lung CA, HTN, CAD, COPD and Tobacco Abuse who was admitted on 04/06 by hospitalist service secondary to complaints of generalized weakness and SOB x1 wk and decreased PO intake. Recently diagnosed w/ Lung CA in November 2016, has completed 5wks of Radiation, pending Chemotherapy. States symptoms have been getting progressively worse. Denies fever, chills, nausea, vomiting or diarrhea. On arrival, BP 117/64, HR 133, O2 sat 97% on 2L NC, Temp 101.1. WBC normal however elevated neutrophil count. Creatinine 1.53, previously 0.86 on 09/25/16. Troponin negative. Lactic Acid normal. INR 1.1. CXR with trace right basilar infiltrate. CTA Pulm negative for PE, patchy bilateral pneumonia, left hilar mass concerning for carcinoma. Patient developed worsening respiratory distress and A. fib with RVR so was transferred to the ICU on morning of 04/08. He was placed on BiPAP and Cardizem drip and critical care was consulted for worsening respiratory failure and A. fib with RVR. I evaluated the patient on being notified immediately. At that time he was on BiPAP with full facemask and extremely agitated and anxious. He was given Ativan and morphine and subsequently started on a Precedex drip and BiPAP settings were adjusted. He was also given Lasix for diuresis as his chest x-ray suggested pulmonary edema and he had an elevated BNP. History was obtained by reviewing records and discussion with Dr. Lau 03/10: Breathing improved with diuresis yesterday. Still on nonrebreather facemask Patient awake and alert. Feeling hungry this afternoon at the time of my evaluation. Was awaiting PRBC transfusion. 04/10 Patient is on partial rebreather awake and alert. On Precedex drip. Afebrile. Off Cardizem drip. 04/11 No events overnight. Remains on Precedex drip. 04/12 No events overnight. Off Precedex drip remains on partial rebreather.Afebrile.Hypertensive. Objective Vital Signs Date Time Temp Pulse Resp B/P (MAP) Pulse Ox O2 Delivery O2 Flow Rate FiO2 04/12/17 06:00 93 04/12/17 04:00 98.0 22 157/86 (109) 94 04/11/17 20:29 Partial Rebreather 14.00 04/11/17 19:00 45 Intake and Output 04/12/17 04/12/17 04/13/17 08:00 16:00 00:00 Intake Total 770 ml Output Total 500 ml Balance 270 ml Result Diagram: 04/12/17 0524 04/11/17 0519 Other Results Laboratory Tests Test 04/12/17 05:24 White Blood Count 8.6 TH/MM3 Red Blood Count 2.44 MIL/MM3 Hemoglobin 8.4 GM/DL Hematocrit 23.6 % Mean Corpuscular Volume 96.7 FL Mean Corpuscular Hemoglobin 34.3 PG Mean Corpuscular Hemoglobin Concent 35.5 % Red Cell Distribution Width 17.5 % Platelet Count 156 TH/MM3 Mean Platelet Volume 8.7 FL Neutrophils (%) (Auto) 91.5 % Lymphocytes (%) (Auto) 1.7 % Monocytes (%) (Auto) 6.0 % Eosinophils (%) (Auto) 0.0 % Basophils (%) (Auto) 0.8 % Neutrophils # (Auto) 7.8 TH/MM3 Lymphocytes # (Auto) 0.1 TH/MM3 Monocytes # (Auto) 0.5 TH/MM3 Eosinophils # (Auto) 0.0 TH/MM3 Basophils # (Auto) 0.1 TH/MM3 CBC Comment DIFF FINAL Differential Comment Imaging Last Impressions Chest X-Ray 04/10/17 0000 Signed Impressions: Service Date/Time: Monday, April 10, 2017 08:16 - CONCLUSION: 1. Bilateral predominantly interstitial process, right much worse than left. There may be slight interval improvement when compared to prior. 2. Fullness in the left perihilar distribution. Jaret Crouch MD CT Angiography 04/05/17 0000 Signed Impressions: Service Date/Time: Wednesday, April 05, 2017 20:05 - CONCLUSION: 1. No pulmonary embolus. 2. Patchy bilateral pneumonia as above. 3. Vague left hilar mass concerning for carcinoma. 4. Upper limits of normal to mildly enlarged mediastinal lymph nodes. 5. Coronary artery calcification. Dmitri Manuel MD Objective Remarks GENERAL: PAtient is lying in bed in mild resp distress SKIN: Warm and dry. HEAD: Normocephalic. EYES: No scleral icterus. No injection or drainage. NECK: Supple, trachea midline. No JVD or lymphadenopathy. CARDIOVASCULAR: Regular rate and rhythm without murmurs, gallops, or rubs. RESPIRATORY: Breath sounds equal bilaterally. No accessory muscle use. GASTROINTESTINAL: Abdomen soft, non-tender, nondistended. MUSCULOSKELETAL: No cyanosis, or edema. BACK: Nontender without obvious deformity. No CVA tenderness. Neuro: Awake and alert. A/P Assessment and Plan 61-year-old male with: Severe sepsis Pneumonia COPD exacerbation Pulmonary edema Non-ST elevation [place] A. fib with RVR-now in RSR Lung cancer Hypertension Plan: Neuro: Monitor neuro status. Ativan and morphine when necessary as needed. CV: Monitor HR and BP keep MAP>65mmHg Monitor trop, Echo showed EF 50-55%, Cards is following- Dr. Nava Continue with Cardizem 60mg Q8, Lopressor 50mg Q12, ASA, add Lisinopril 5mg daily for BP control. Pulm: Wean down oxygen as moise keep sat >92% Bronchodilators, NIPPV PRN for resp distress Solumederol 40mg Q12, GI/liver: On PO diet Renal/: Monitor renal function, electrolytes replacement per protocol. Needs K replacement today d/c Lasix ID: Continue abx per ID ( cefepime) ID is following. Monitor for signs of infections ( Fever, WBC) Sputum 04/07: Pseudomonas Heme-onc: Follow CBC and coags. History of lung cancer status post previous radiation therapy. One unit PRBC transfused 04/09 Endocrine: SSI for glycemic control Prophylaxis: Pepcid/SCDs/subcutaneous Lovenox Palliative care is following level 3 Rachel Otero MD Apr 12, 2017 07:25
[2017-04-12] MEDS: guaiFENesin E.R. 600 MG TAB PO SCH ×2 (08:19→19:49)
[2017-04-12] MEDS: PANTOPRAZOLE SODIUM 40 MG VIAL IV PUSH SCH (08:19)
[2017-04-12] MEDS: METOPROLOL TARTRATE 50 MG TAB PO SCH ×2 (08:19→19:48)
[2017-04-12] MEDS: ASPIRIN EC 81 MG TABEC PO SCH (08:19)
[2017-04-12] MEDS: NYSTAT/DIPHENHY/LIDO MOUTHWASH (Adult) 120ML SWISH-SWAL SCH ×4 (08:19→21:00)
[2017-04-12] MEDS: DOCUSATE SODIUM 50 MG/SENNA 8.6 MG TAB PO SCH ×2 (08:19→19:49)
[2017-04-12] MEDS: methylPREDNISolone SOD SUCC 40 MG/1 ML VIAL IV PUSH SCH ×2 (08:20→19:48)
[2017-04-12] MEDS: SODIUM CHLORIDE 0.9% FLUSH 10 ML FLUSH IV FLUSH SCH ×2 (08:20→19:49)
[2017-04-12] MEDS: ACETAMINOPHEN/HYDROcodone 325 MG/5 MG TAB PO PRN (08:21)
[2017-04-12] MEDS: HEPARIN SODIUM - SQ 10,000 UNITS/ML VIAL SQ SCH ×2 (08:21→19:48)
[2017-04-12] MEDS: REMOVE OLD PATCH T-DERMAL SCH (08:22)
[2017-04-12] MEDS: LISINOPRIL 5 MG TAB PO SCH (08:27)
[2017-04-13] VITALS (14 sets, daily range): BP systolic 130–140; BP diastolic 66–78; PULSE 68–88; RESP 24–28; TEMP 97.2–98.5; O2SAT 94–100
[2017-04-13] MEDS: INSULIN NovoLIN REGULAR SUPPLEMENTAL SCALE SQ SCH ×5 (01:47→23:27)
[2017-04-13] MEDS: CEFEPIME 2000 MG/NS 100 ML IV SCH ×8 (01:47→23:28)
[2017-04-13] MEDS: RESP: IPRATROPIUM 0.5 MG/2.5 ML NEB NEB SCH ×4 (03:45→21:24)
[2017-04-13] MEDS: CHLORHEXIDINE GLUCONATE 2 % 1 PACK (2 CLOTHS) TOP SCH ×2 (04:00→23:34)
[2017-04-13 05:48] LABS: AUTOMATED NEUTROPHIL # 6.1 TH/MM3 (1.8-7.7); BASOPHIL % 0.2 % (0.0-2.0); HEMATOCRIT 23.5 % (39.0-51.0); HEMO FLAGS DIFF FINAL; LYMPH % 2.2 % (9.0-44.0); LYMPHOCYTE # 0.1 TH/MM3 (1.0-4.8); MEAN CELL VOLUME 96.8 FL (80.0-100.0); MEAN CORPUSCULAR HGB CONC 34.1 % (32.0-36.0); MONO % 6.2 % (0.0-8.0); NEUT % 91.4 % (16.0-70.0); PLATELET COUNT 143 TH/MM3 (150-450); RED BLOOD COUNT 2.43 MIL/MM3 (4.50-5.90); RED CELL DISTRIBUTION WIDTH 16.5 % (11.6-17.2); WHITE BLOOD COUNT 6.7 TH/MM3 (4.0-11.0)
[2017-04-13] MEDS: DILTIAZEM HCL 60 MG TAB PO SCH ×3 (05:48→20:28)
[2017-04-13 06:03] LABS: BICARBONATE 29.1 MEQ/L (21.0-32.0); MAGNESIUM 1.8 MG/DL (1.5-2.5); POTASSIUM 3.5 MEQ/L (3.5-5.1)
--- NOTE | 2017-04-13 07:19 | HHI.CCPN ---
Subjective Remarks/Hospital Course 03/09: This is a 61-year-old male with a PMH of Lung CA, HTN, CAD, COPD and Tobacco Abuse who was admitted on 04/06 by hospitalist service secondary to complaints of generalized weakness and SOB x1 wk and decreased PO intake. Recently diagnosed w/ Lung CA in November 2016, has completed 5wks of Radiation, pending Chemotherapy. States symptoms have been getting progressively worse. Denies fever, chills, nausea, vomiting or diarrhea. On arrival, BP 117/64, HR 133, O2 sat 97% on 2L NC, Temp 101.1. WBC normal however elevated neutrophil count. Creatinine 1.53, previously 0.86 on 09/25/16. Troponin negative. Lactic Acid normal. INR 1.1. CXR with trace right basilar infiltrate. CTA Pulm negative for PE, patchy bilateral pneumonia, left hilar mass concerning for carcinoma. Patient developed worsening respiratory distress and A. fib with RVR so was transferred to the ICU on morning of 04/08. He was placed on BiPAP and Cardizem drip and critical care was consulted for worsening respiratory failure and A. fib with RVR. I evaluated the patient on being notified immediately. At that time he was on BiPAP with full facemask and extremely agitated and anxious. He was given Ativan and morphine and subsequently started on a Precedex drip and BiPAP settings were adjusted. He was also given Lasix for diuresis as his chest x-ray suggested pulmonary edema and he had an elevated BNP. History was obtained by reviewing records and discussion with Dr. Lau 03/10: Breathing improved with diuresis yesterday. Still on nonrebreather facemask Patient awake and alert. Feeling hungry this afternoon at the time of my evaluation. Was awaiting PRBC transfusion. 04/10 Patient is on partial rebreather awake and alert. On Precedex drip. Afebrile. Off Cardizem drip. 04/11 No events overnight. Remains on Precedex drip. 04/12 No events overnight. Off Precedex drip remains on partial rebreather.Afebrile.Hypertensive. Patient remains on partial rebreather with good sats, states his breathing is better. Objective Vital Signs Date Time Temp Pulse Resp B/P (MAP) Pulse Ox O2 Delivery O2 Flow Rate FiO2 04/12/17 20:07 92 Partial Rebreather 12.00 04/12/17 20:00 80 04/12/17 20:00 97.5 41 130/85 (100) 04/12/17 19:00 70 Result Diagram: 04/13/170 04/13/17 0410 Other Results Laboratory Tests Test 04/13/17 04:10 White Blood Count 6.7 TH/MM3 Red Blood Count 2.43 MIL/MM3 Hemoglobin 8.0 GM/DL Hematocrit 23.5 % Mean Corpuscular Volume 96.8 FL Mean Corpuscular Hemoglobin 33.0 PG Mean Corpuscular Hemoglobin Concent 34.1 % Red Cell Distribution Width 16.5 % Platelet Count 143 TH/MM3 Mean Platelet Volume 8.7 FL Neutrophils (%) (Auto) 91.4 % Lymphocytes (%) (Auto) 2.2 % Monocytes (%) (Auto) 6.2 % Eosinophils (%) (Auto) 0.0 % Basophils (%) (Auto) 0.2 % Neutrophils # (Auto) 6.1 TH/MM3 Lymphocytes # (Auto) 0.1 TH/MM3 Monocytes # (Auto) 0.4 TH/MM3 Eosinophils # (Auto) 0.0 TH/MM3 Basophils # (Auto) 0.0 TH/MM3 CBC Comment DIFF FINAL Differential Comment Blood Urea Nitrogen 23 MG/DL Creatinine 0.89 MG/DL Random Glucose 140 MG/DL Calcium Level 7.6 MG/DL Phosphorus Level 2.8 MG/DL Magnesium Level 1.8 MG/DL Sodium Level 135 MEQ/L Potassium Level 3.5 MEQ/L Chloride Level 98 MEQ/L Carbon Dioxide Level 29.1 MEQ/L Anion Gap 8 MEQ/L Estimat Glomerular Filtration Rate 87 ML/MIN Imaging Last Impressions Chest X-Ray 04/10/17 0000 Signed Impressions: Service Date/Time: Monday, April 10, 2017 08:16 - CONCLUSION: 1. Bilateral predominantly interstitial process, right much worse than left. There may be slight interval improvement when compared to prior. 2. Fullness in the left perihilar distribution. Jaret Crouch MD CT Angiography 04/05/17 0000 Signed Impressions: Service Date/Time: Wednesday, April 05, 2017 20:05 - CONCLUSION: 1. No pulmonary embolus. 2. Patchy bilateral pneumonia as above. 3. Vague left hilar mass concerning for carcinoma. 4. Upper limits of normal to mildly enlarged mediastinal lymph nodes. 5. Coronary artery calcification. Dmitri Manuel MD Objective Remarks GENERAL: PAtient is lying in bed in mild resp distress SKIN: Warm and dry. HEAD: Normocephalic. EYES: No scleral icterus. No injection or drainage. NECK: Supple, trachea midline. No JVD or lymphadenopathy. CARDIOVASCULAR: Regular rate and rhythm without murmurs, gallops, or rubs. RESPIRATORY: Breath sounds equal bilaterally. No accessory muscle use. GASTROINTESTINAL: Abdomen soft, non-tender, nondistended. MUSCULOSKELETAL: No cyanosis, or edema. BACK: Nontender without obvious deformity. No CVA tenderness. Neuro: Awake and alert. A/P Assessment and Plan 61-year-old male with: Severe sepsis Pneumonia COPD exacerbation Pulmonary edema Non-ST elevation [place] A. fib with RVR-now in RSR Lung cancer Hypertension Plan: Neuro: Monitor neuro status. Ativan and morphine when necessary as needed. CV: Monitor HR and BP keep MAP>65mmHg Monitor trop, Echo showed EF 50-55%, Cards is following- Dr. Nava Continue with Cardizem 60mg Q8, Lopressor 50mg Q12, ASA, Lisinopril 5mg daily for BP control. Pulm: Wean down oxygen as moise keep sat >92% Bronchodilators, NIPPV PRN for resp distress Solumederol 40mg Q12, check CXR GI/liver: On PO diet Renal/: Monitor renal function, electrolytes replacement per protocol. Diurese with Lasix 40mg daily ID: Continue abx per ID ( cefepime) ID is following. Monitor for signs of infections ( Fever, WBC) Sputum 04/07: Pseudomonas, recheck sputum cx Heme-onc: Follow CBC and coags. History of lung cancer status post previous radiation therapy. One unit PRBC transfused 04/09 Onc ebal Endocrine: SSI for glycemic control Prophylaxis: Pepcid/SCDs/subcutaneous Lovenox Palliative care is following level 3 Rachel Otero MD Apr 13, 2017 07:19
--- NOTE | 2017-04-13 07:53 | RADRPT ---
EXAM DATE/TIME: 04/13/2017 07:28 [facility] COMPARISON: CHEST SINGLE AP, April 10, 2017, 8:16. INDICATIONS : Shortness of breath. MEDICAL HISTORY : Carcinoma, lung. Chronic obstructive pulmonary disease. Hypertension. SURGICAL HISTORY : None. ENCOUNTER: Subsequent ACUITY: 1 week PAIN SCORE: 0/10 LOCATION: Bilateral chest FINDINGS: A single view of the chest demonstrates diffuse interstitial opacities not significant changed. Heart normal size. The cardiomediastinal contours are unremarkable. Osseous structures are intact. CONCLUSION: Diffuse interstitial process, unchanged. Pk Bae MD on April 13, 2017 at 7:50 Board Certified Radiologist. This report was verified electronically.
[2017-04-13] MEDS: NYSTAT/DIPHENHY/LIDO MOUTHWASH (Adult) 120ML SWISH-SWAL SCH ×4 (09:00→23:33)
[2017-04-13] MEDS: REMOVE OLD PATCH T-DERMAL SCH (09:00)
[2017-04-13] MEDS: LISINOPRIL 5 MG TAB PO SCH (09:04)
[2017-04-13] MEDS: methylPREDNISolone SOD SUCC 40 MG/1 ML VIAL IV PUSH SCH ×2 (09:04→20:27)
[2017-04-13] MEDS: PANTOPRAZOLE SODIUM 40 MG VIAL IV PUSH SCH (09:04)
[2017-04-13] MEDS: HEPARIN SODIUM - SQ 10,000 UNITS/ML VIAL SQ SCH ×2 (09:04→20:27)
[2017-04-13] MEDS: guaiFENesin E.R. 600 MG TAB PO SCH ×2 (09:04→20:28)
[2017-04-13] MEDS: DOCUSATE SODIUM 50 MG/SENNA 8.6 MG TAB PO SCH ×2 (09:05→20:28)
[2017-04-13] MEDS: METOPROLOL TARTRATE 50 MG TAB PO SCH ×2 (09:05→20:27)
[2017-04-13] MEDS: ASPIRIN EC 81 MG TABEC PO SCH (09:05)
[2017-04-13] MEDS: SODIUM CHLORIDE 0.9% FLUSH 10 ML FLUSH IV FLUSH SCH ×2 (09:18→20:27)
--- NOTE | 2017-04-13 09:49 | HHI.IDPN ---
Subjective Subjective Remarks Patient is a 61-year-old male, presented to the hospital complaining of one- week history of generalized weakness, as well as worsening shortness of breath. Denies any significant cough or sputum production. He was diagnosed to have lung cancer November 2016, and has received about 5 weeks of radiation therapy. He has not had any nausea or vomiting. Denies any chest pain. His initial chest x -ray showed a trace right base infiltrate. Patient was started on antibiotics for pneumonia. 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 His chest x-ray showed worsening infiltrates on the right side. He was transferred to the intensive care unit for closer monitoring. Patient has been requiring BiPAP for oxygenation. Patient has had fevers up to 101. Blood cultures are negative so far. Urine for Legionella and pneumococcal antigen are negative. Infectious disease consultation has been requested to evaluate the patient with worsening pneumonia Notes reviewed D/W RN Temnadeem ok States breathing is better Last CXR with stable infiltrates On PNRB mask Sputum with PSAE BC negative Antibiotics Current Medications Cefepime IV Medications (Trade) Dose Ordered Sig/[place] Route Start Time Stop Time Status Last Admin (NS Flush) 2 ml UNSCH PRN IV FLUSH 04/05/17 22:00 (NS Flush) 2 ml BID IV FLUSH 04/06/17 09:00 04/13/17 09:18 (Zofran Inj) 4 mg Q6H PRN IVP 04/05/17 22:00 (Tylenol) 650 mg Q6H PRN PO 04/05/17 22:00 04/07/17 15:39 ([place] 5-325 Mg) 1 tab Q4H PRN PO 04/05/17 22:00 04/12/17 08:21 (Dilaudid Pf Inj) 1 mg Q3H PRN IV PUSH 04/05/17 22:00 04/09/17 23:02 ([place]-Colace) 1 tab BID PO 04/06/17 09:00 04/13/17 09:05 (Milk Of Magnesia Liq) 30 ml Q12H PRN PO 04/05/17 22:00 (Senokot) 17.2 mg Q12H PRN PO 04/05/17 22:00 (Dulcolax Supp) 10 mg DAILY PRN RECTAL 04/05/17 22:00 (Lactulose Liq) 30 ml DAILY PRN PO 04/05/17 22:00 (Mucinex Er) 600 mg BID PO 04/06/17 09:00 04/13/17 09:04 (Heparin Inj) 5,000 units Q12HR SQ 04/06/17 09:00 04/13/17 09:04 (Magic Mouthwash Adult Liq) 10 ml QID SWISH-SWAL 04/06/17 13:00 04/12/17 17:36 (Protonix Inj) 40 mg DAILY IV PUSH 04/07/17 14:45 04/13/17 09:04 (Atrovent Neb) 0.5 mg Q6HR NEB NEB 04/08/17 10:00 04/12/17 20:05 (Atrovent Neb) 0.5 mg Q2HR NEB PRN NEB 04/08/17 06:00 Miscellaneous Information 1 Q361D XX 04/08/17 06:15 (Chlorhexidine 2% Cloth) 3 pack Taper DAILY@04 TOP 04/09/17 04:00 04/05/18 03:59 04/13/17 04:00 (Chlorhexidine 2% Cloth) 3 pack UNSCH PRN TOP 04/08/17 06:15 (Morphine Inj) 4 mg Q4HR PRN IV PUSH 04/08/17 06:30 04/12/17 10:59 Cefepime HCl 2000 mg/Sodium Chloride 100 ml @ 200 mls/hr Q8H IV 04/08/17 16:00 04/13/17 09:01 (Cardizem) 60 mg Q8HR PO 04/08/17 22:00 04/13/17 05:48 (Ecotrin Ec) 81 mg DAILY PO 04/10/17 09:00 04/13/17 09:05 Potassium Chloride 100 ml @ 50 mls/hr Q2H PRN IV 04/10/17 08:00 Potassium Chloride 100 ml @ 50 mls/hr Q2H PRN IV 04/10/17 08:00 04/11/17 12:31 (K-Lyte Cl Eff) 50 meq UNSCH PRN PO 04/10/17 08:00 Potassium Chloride 100 ml @ 25 mls/hr UNSCH PRN IV 04/10/17 08:00 Potassium Chloride 100 ml @ 50 mls/hr Q2H PRN IV 04/10/17 08:00 Magnesium Sulfate 4 gm/Sodium Chloride 100 ml @ 50 mls/hr UNSCH PRN IV 04/10/17 08:00 (Mag-Ox) 800 mg UNSCH PRN PO 04/10/17 08:00 Magnesium Sulfate 2 gm/Sodium Chloride 100 ml @ 50 mls/hr UNSCH PRN IV 04/10/17 08:00 (K-Phos) 2,000 mg Q4H PRN PO 04/10/17 08:00 Sodium Phosphate 30 mmol/Sodium Chloride 250 ml @ 42 mls/hr UNSCH PRN IV 04/10/17 08:00 04/10/17 15:30 (K-Phos) 2,000 mg UNSCH PRN PO/TUBE 04/10/17 08:00 Potassium Phosphate 30 mmol/ Sodium Chloride 260 ml @ 42 mls/hr UNSCH PRN IV 04/10/17 08:00 (D50w (Vial) Inj) 50 ml UNSCH PRN IV PUSH 04/10/17 08:15 (Glucagon Inj) 1 mg UNSCH PRN OTHER 04/10/17 08:15 (NovoLIN R SUPPLEMENTAL SCALE) 1 Q6HR SQ 04/10/17 08:15 04/13/17 05:48 Miscellaneous Information 1 DAILY T-DERMAL 04/10/17 15:04 04/13/17 09:00 (SoluMEDROL INJ) 40 mg Q12H IV PUSH 04/11/17 09:00 04/13/17 09:04 (Lopressor) 50 mg Q12HR PO 04/11/17 21:00 04/13/17 09:05 (Lopressor Inj) 2.5 mg Q6H PRN IV PUSH 04/11/17 17:30 04/11/17 18:13 (Prinivil) 5 mg DAILY PO 04/12/17 09:00 04/13/17 09:04 (Lasix Inj) 40 mg DAILY IV PUSH 04/13/17 09:15 UNV Lines PIV Past Medical History Lung CA Hypertension CAD COPD Tobacco Abuse Past Surgical History Abdominal surgery Allergies: Coded Allergies: No Known Allergies (Verified Allergy, Unknown, 04/05/17) Objective . Vital Signs Date Time Temp Pulse Resp B/P (MAP) Pulse Ox O2 Delivery O2 Flow Rate FiO2 04/13/17 06:00 81 04/13/17 04:00 84 04/13/17 04:00 97.8 69 130/78 (95) 97 04/13/17 02:00 72 04/13/17 00:00 81 04/13/17 00:00 97.2 84 28 139/77 (97) 99 04/12/17 22:00 70 04/12/17 20:07 92 Partial Rebreather 12.00 04/12/17 20:00 80 04/12/17 20:00 97.5 84 41 130/85 (100) 96 04/12/17 19:00 Partial Non-Rebreather 15.00 70 04/12/17 18:00 91 04/12/17 16:00 98.4 73 16 143/76 (98) 93 04/12/17 16:00 71 04/12/17 14:00 78 04/12/17 12:00 98.3 84 21 148/84 (105) 96 04/12/17 12:00 74 04/12/17 11:04 14 04/12/17 10:00 79 04/12/17 09:47 93 Partial Rebreather . Laboratory Tests Test 04/12/17 05:24 04/13/17 04:10 White Blood Count 8.6 TH/MM3 6.7 TH/MM3 Red Blood Count 2.44 MIL/MM3 2.43 MIL/MM3 Hemoglobin 8.4 GM/DL 8.0 GM/DL Hematocrit 23.6 % 23.5 % Mean Corpuscular Volume 96.7 FL 96.8 FL Mean Corpuscular Hemoglobin 34.3 PG 33.0 PG Mean Corpuscular Hemoglobin Concent 35.5 % 34.1 % Red Cell Distribution Width 17.5 % 16.5 % Platelet Count 156 TH/MM3 143 TH/MM3 Mean Platelet Volume 8.7 FL 8.7 FL Neutrophils (%) (Auto) 91.5 % 91.4 % Lymphocytes (%) (Auto) 1.7 % 2.2 % Monocytes (%) (Auto) 6.0 % 6.2 % Eosinophils (%) (Auto) 0.0 % 0.0 % Basophils (%) (Auto) 0.8 % 0.2 % Neutrophils # (Auto) 7.8 TH/MM3 6.1 TH/MM3 Lymphocytes # (Auto) 0.1 TH/MM3 0.1 TH/MM3 Monocytes # (Auto) 0.5 TH/MM3 0.4 TH/MM3 Eosinophils # (Auto) 0.0 TH/MM3 0.0 TH/MM3 Basophils # (Auto) 0.1 TH/MM3 0.0 TH/MM3 CBC Comment DIFF FINAL DIFF FINAL Differential Comment Laboratory Tests Test 04/12/17 05:24 04/13/17 04:10 Blood Urea Nitrogen 27 MG/DL 23 MG/DL Creatinine 0.85 MG/DL 0.89 MG/DL Random Glucose 142 MG/DL 140 MG/DL Calcium Level 7.9 MG/DL 7.6 MG/DL Sodium Level 134 MEQ/L 135 MEQ/L Potassium Level 3.5 MEQ/L 3.5 MEQ/L Chloride Level 96 MEQ/L 98 MEQ/L Carbon Dioxide Level 30.4 MEQ/L 29.1 MEQ/L Anion Gap 8 MEQ/L 8 MEQ/L Estimat Glomerular Filtration Rate 91 ML/MIN 87 ML/MIN Phosphorus Level 2.8 MG/DL Magnesium Level 1.8 MG/DL Imaging Chest X-Ray 04/10/17 0000 Signed Impressions: Service Date/Time: Monday, April 10, 2017 08:16 - CONCLUSION: 1. Bilateral predominantly interstitial process, right much worse than left. There may be slight interval improvement when compared to prior. 2. Fullness in the left perihilar distribution. Jaret Crouch MD Chest X-Ray 04/08/17 0000 Signed Impressions: Service Date/Time: Saturday, April 08, 2017 04:32 - CONCLUSION: New coarse infiltrate in the right lung most characteristic of pneumonia. Willy Pantoja MD CT Angiography 04/05/17 0000 Signed Impressions: Service Date/Time: Wednesday, April 05, 2017 20:05 - CONCLUSION: 1. No pulmonary embolus. 2. Patchy bilateral pneumonia as above. 3. Vague left hilar mass concerning for carcinoma. 4. Upper limits of normal to mildly enlarged mediastinal lymph nodes. 5. Coronary artery calcification. Dmitri Manuel MD Physical Exam GENERAL: awake and alert, not in respiratory distress. On PNRB mask SKIN: Cool and dry. No generalized rash, no ecchymoses HEAD: Atraumatic. Normocephalic. No temporal wasting, or tenderness. EYES: [place] conjunctiva. No petechia or hemorrhage. Pupils equal, round and reactive to light. Extraocular movements full and intact. No scleral icterus. EARS, NOSE AND THROAT: Nose without bleeding or purulent nasal discharge. No sinus tenderness. Moist oral mucosa. CARDIOVASCULAR: Regular rate and rhythm. No murmurs, rubs or gallops heard RESPIRATORY: Coarse BS bilaterally, decreased on R side. No rales, wheezing or rhonchi ABDOMEN: Soft, non-tender, nondistended. Bowel sounds present and normoactive. No guarding. No rebound. No organomegaly. EXTREMITIES: No clubbing, cyanosis, or edema. No calf tenderness. Well perfused and warm. NEUROLOGICAL: Non-focal PSYCHIATRIC: Normal affect, calm and cooperative. LINE: No evidence of infection Assessment & Plan Remarks IMPRESSION Sepsis, due to PNA - better PNA, C/S PSAE CAP, patient with newly Dx lung CA, S/P XRT - CXR stable COPD Respiratory failure RECOMMENDATION Continue Cefepime IV Monitor respiratory status Follow temps Monitor progress D/W Audrey Mendez MD Apr 13, 2017 09:49
[2017-04-13] MEDS: FUROSEMIDE 40 MG/4 ML VIAL IV PUSH SCH (10:31)
--- NOTE | 2017-04-13 17:19 | HHI.HCPN ---
Reason for visit a. To assist with evaluation and management of symptoms including: shortness of breath, agitation, decreased oral intake, physical deconditioning b. To assist medical decision maker(s) with: better understanding of current medical conditions; weighing benefits/burdens of medical treatment options; making medical treatment decisions. Subjective/Interval History Mr Adams is a 61 years old male with a past medical history of lung cancer, COPD, hypertension, CAD and tobacco use. Patient was diagnosed with lung cancer in November, and he underwent 5 weeks of radiation and pending chemotherapy treatment, though patient`s states that he did have 1 treatment of chemotherapy. Patient currently resides in a transitional home. Patient was accompanied by his friends to the ER on 04/05/17 complaining of shortness on breath, worsening weakness, fatigue and poor appetite for 5 days prior to ER visit. Patient seen in his room, awake, alert and oriented to self, place and situation. Patient currently denies pain and denies any shortness of breath. Patient is currently on a partial nonrebreather with O2 saturation in the high 90s and 100. Precedex drip weaned off 04/12/17. Patient is calm. Patient states that his appetite has improved and has been eating his food, though he still complains of having pured diet and nectar thick fluids. Speech therapy following. Laboratory workup today revealing WBC 6.7, hemoglobin 8.0, hematocrit 23.5, platelet count 143, sodium 135, potassium 3.5, BUN/creatinine 23/0.89. Chest x-ray today revealing diffuse interstitial process, unchanged. Oncology Dr. Rocha consulted for evaluation and management of lung cancer. Patient endorses feeling much better with his breathing and states that he is ready to go home. Last BM 04/08/17 Case discussed with bedside RN Tito Oscar . Family/friend interactions No family at bedside. Advance Directives Health Care Surrogate: Copy in medical record Advance Directive Specifics Date completed: 04/08/2017- [facility] . Health Care Surrogate(s): HCS- (Long time friend-15 yrs) Kay Rizvi [phone] Alternate [facility]- Cousin- Dahiana Mayorga [phone] . Objective Vital Signs Date Time Temp Pulse Resp B/P (MAP) Pulse Ox O2 Delivery O2 Flow Rate FiO2 04/13/17 14:00 78 04/13/17 12:00 98.3 68 24 137/66 (89) 99 04/13/17 12:00 68 04/13/17 10:00 80 04/13/17 08:00 83 04/13/17 08:00 97.9 71 26 134/68 (90) 97 04/13/17 07:00 97 Partial Non-Rebreather 15.00 04/13/17 06:00 81 04/13/17 04:00 84 04/13/17 04:00 97.8 69 130/78 (95) 97 04/13/17 02:00 72 04/13/17 00:00 81 04/13/17 00:00 97.2 84 28 139/77 (97) 99 04/12/17 22:00 70 04/12/17 20:07 92 Partial Rebreather 12.00 04/12/17 20:00 80 04/12/17 20:00 97.5 84 41 130/85 (100) 96 04/12/17 19:00 Partial Non-Rebreather 15.00 70 04/12/17 18:00 91 Intake & Output 04/13/17 04/13/17 07:00 19:00 Intake Total 780 ml Output Total 500 ml Balance 280 ml Intake Oral 480 ml IV Total 300 ml Output Urine Total 500 ml Stool Total 0 ml Physical Exam CONSTITUTIONAL/GENERAL: This is an ill-looking patient, who looks older than stated age.Patient looks pale. TUBES/LINES/DRAINS:BiPAP,SCDs, PIVs SKIN: Pale. Ecchymoses on upper extremities. No wounds seen anteriorly. Skin temperature appropriate. Not diaphoretic. HEAD: Atraumatic. Normocephalic. EYES: Pupils equal and round and reactive. Extraocular motions intact. No injection or drainage. Fundi not examined. ENT: Hearing grossly normal. Nose without bleeding or purulent drainage. Moist oral mucosa NECK: Trachea midline. Supple, nontender. CARDIOVASCULAR: Irregular rate and rhythm without murmurs, gallops, or rubs. No JVD. Peripheral pulses symmetric. RESPIRATORY/CHEST: Symmetric,mildly labored respirations. Rhonchi to auscultation. Breath sounds equal bilaterally. No wheezes. GASTROINTESTINAL: Abdomen soft, non-tender, nondistended. No guarding. Bowel sounds present. GENITOURINARY: Without palpable bladder distension. MUSCULOSKELETAL: Extremities without clubbing, cyanosis, or edema. No joint tenderness or effusion noted. No calf tenderness. No mottling or clubbing. NEUROLOGICAL: Awake, alert and oriented to self, place and situation. Motor and sensory grossly within normal limits. Follows commands. Moves all extremities. PSYCHIATRIC: Calm. No obvious anxiety/depression. no apparent hallucinations or other psychotic thought process. . Diagnostic Tests Laboratory Laboratory Tests Test 04/10/17 19:57 04/11/17 05:19 04/12/17 05:24 04/13/17 04:10 Phosphorus Level 4.8 MG/DL (2.5-4.9) 2.8 MG/DL (2.5-4.9) Troponin I 0.63 NG/ML (0.02-0.05) White Blood Count 6.9 TH/MM3 (4.0-11.0) 8.6 TH/MM3 (4.0-11.0) 6.7 TH/MM3 (4.0-11.0) Red Blood Count 2.67 MIL/MM3 (4.50-5.90) 2.44 MIL/MM3 (4.50-5.90) 2.43 MIL/MM3 (4.50-5.90) Hemoglobin 8.8 GM/DL (13.0-17.0) 8.4 GM/DL (13.0-17.0) 8.0 GM/DL (13.0-17.0) Hematocrit 25.6 % (39.0-51.0) 23.6 % (39.0-51.0) 23.5 % (39.0-51.0) Mean Corpuscular Volume 95.9 FL (80.0-100.0) 96.7 FL (80.0-100.0) 96.8 FL (80.0-100.0) Mean Corpuscular Hemoglobin 33.2 PG (27.0-34.0) 34.3 PG (27.0-34.0) 33.0 PG (27.0-34.0) Mean Corpuscular Hemoglobin Concent 34.6 % (32.0-36.0) 35.5 % (32.0-36.0) 34.1 % (32.0-36.0) Red Cell Distribution Width 17.5 % (11.6-17.2) 17.5 % (11.6-17.2) 16.5 % (11.6-17.2) Platelet Count 152 TH/MM3 (150-450) 156 TH/MM3 (150-450) 143 TH/MM3 (150-450) Mean Platelet Volume 8.3 FL (7.0-11.0) 8.7 FL (7.0-11.0) 8.7 FL (7.0-11.0) CBC Comment AUTO DIFF DIFF FINAL DIFF FINAL Differential Total Cells Counted 100 Neutrophils % (Manual) 86 % (16-70) Band Neutrophils % 5 % (0-6) Lymphocytes % 4 % (9-44) Monocytes % 5 % (0-8) Neutrophils # (Manual) 6.3 TH/MM3 (1.8-7.7) Differential Comment FINAL DIFF MANUAL Toxic Granulation 1+ (NORMAL) Platelet Estimate NORMAL (NORMAL) Platelet Morphology Comment NORMAL (NORMAL) Ovalocytes 1+ (NORMAL) Blood Urea Nitrogen 28 MG/DL (7-18) 27 MG/DL (7-18) 23 MG/DL (7-18) Creatinine 0.91 MG/DL (0.60-1.30) 0.85 MG/DL (0.60-1.30) 0.89 MG/DL (0.60-1.30) Random Glucose 153 MG/DL (74-106) 142 MG/DL (74-106) 140 MG/DL (74-106) Calcium Level 8.0 MG/DL (8.5-10.1) 7.9 MG/DL (8.5-10.1) 7.6 MG/DL (8.5-10.1) Sodium Level 136 MEQ/L (136-145) 134 MEQ/L (136-145) 135 MEQ/L (136-145) Potassium Level 3.4 MEQ/L (3.5-5.1) 3.5 MEQ/L (3.5-5.1) 3.5 MEQ/L (3.5-5.1) Chloride Level 100 MEQ/L (98-107) 96 MEQ/L (98-107) 98 MEQ/L (98-107) Carbon Dioxide Level 26.0 MEQ/L (21.0-32.0) 30.4 MEQ/L (21.0-32.0) 29.1 MEQ/L (21.0-32.0) Anion Gap 10 MEQ/L (5-15) 8 MEQ/L (5-15) 8 MEQ/L (5-15) Estimat Glomerular Filtration Rate 84 ML/MIN (>89) 91 ML/MIN (>89) 87 ML/MIN (>89) Neutrophils (%) (Auto) 91.5 % (16.0-70.0) 91.4 % (16.0-70.0) Lymphocytes (%) (Auto) 1.7 % (9.0-44.0) 2.2 % (9.0-44.0) Monocytes (%) (Auto) 6.0 % (0.0-8.0) 6.2 % (0.0-8.0) Eosinophils (%) (Auto) 0.0 % (0.0-4.0) 0.0 % (0.0-4.0) Basophils (%) (Auto) 0.8 % (0.0-2.0) 0.2 % (0.0-2.0) Neutrophils # (Auto) 7.8 TH/MM3 (1.8-7.7) 6.1 TH/MM3 (1.8-7.7) Lymphocytes # (Auto) 0.1 TH/MM3 (1.0-4.8) 0.1 TH/MM3 (1.0-4.8) Monocytes # (Auto) 0.5 TH/MM3 (0-0.9) 0.4 TH/MM3 (0-0.9) Eosinophils # (Auto) 0.0 TH/MM3 (0-0.4) 0.0 TH/MM3 (0-0.4) Basophils # (Auto) 0.1 TH/MM3 (0-0.2) 0.0 TH/MM3 (0-0.2) Magnesium Level 1.8 MG/DL (1.5-2.5) Result Diagram: 04/13/17 0410 04/13/17 0410 Microbiology 04/07/17 -expectorated sputum- sputum culture revealed moderate growth of pseudomonas aeruginosa. . Imaging Last 48 hours Impressions Chest X-Ray 04/13/17 0000 Signed Impressions: Service Date/Time: Thursday, April 13, 2017 07:28 - CONCLUSION: Diffuse interstitial process, unchanged. Pk Bae MD Assessment and Plan Disease Oriented Problem List: (1) Sepsis (2) Lung cancer (3) Bilateral pneumonia (4) Severe protein-calorie malnutrition (5) Tobacco use (6) Sore throat Symptom Scale: (1) Shortness of breath 0-10 Scale: Unable to quantify Comment: Multifactorial. Patient has a history of lung cancer. Reports that he has been having persistent dyspnea with exertion at home, unable to ambulate for a long distance due to dyspnea. Chest x-ray showed a trace right base infiltrate. Came in with c/o shortness of breath. Dyspneic with conversation. Patient started on antibiotics. Patient received Lasix. Patient is on solumedrol 40mg q 6 hrs, Guaifenesin 600mg BID. . (2) Decreased oral intake 0-10 Scale: Unable to quantify Comment: Patient reporting that he has had poor appetite. Swallow evaluation done- patient on a pureed diet with honey thick consistency and no straws. . (3) Agitation 0-10 Scale: Unable to quantify Comment: Patient has a history of COPD, he has worsening respiratory status and was getting agitated. (4) Physical deconditioning 0-10 Scale: Unable to quantify Pertinent Non-Medical Issues Psychosocial:Patient was born and raised in [place]. He left [place] the age of 20. Patient moved to [place] in 1975. Patient has a 2 years college degree in [employer] technology. 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 Patient was and twice. He never had children. Spiritual:No worship affiliation Legal: Patient signed [facility] form today. Ethical issues impacting care: None identified at this time. . Important Contacts [facility]- (Long time friend-15 yrs) Kay Rizvi [phone] Alternate [facility]- Cousin- Dahiana Mayorga [phone] . Prognosis Mr Adams is a 61 years old male with a past medical history of lung cancer, COPD, hypertension, CAD and tobacco use. Patient was diagnosed with lung cancer in November, and he underwent 5 weeks of radiation and pending chemotherapy treatment, though patient`s states that he did have 1 treatment of chemotherapy. Patient currently resides in a transitional home. Patient was accompanied by his friends to the ER on 04/05/17 complaining of shortness on breath, worsening weakness, fatigue and poor appetite for 5 days prior to ER visit. Clinical course complicated with persistent shortness of breath, and Afib with RVR. Given ongoing comorbidities, patient remains at risk for complications, deterioration and decline. . Code Status: No Code Plan PLAN: Legal decision maker: Patient appears to have insight and judgement of his condition at this time and is able to make his own medical decisions. In the event that he is incapacitated, patient designated his long time friend Kay Rizvi as his healthcare surrogate and his cousin Dahiana Mayorga and his alternate HCS. Goals: 04/13/17- Remain aggressive short of no code. CODE STATUS: DNR/DNI SYMPTOMS: * Shortness of breath: Multifactorial. Patient has a history of lung cancer. Reports that he has been having persistent dyspnea with exertion at home, unable to ambulate for a long distance due to dyspnea. Chest x-ray showed a trace right base infiltrate. Came in with c/o shortness of breath. Patient remains on a partial non-rebreather. Reports of easily desaturating when he takes of the mask. Patient on antibiotics. Sputum positive for Pseudomonas Aeruginosa. Patient on Lasix 40 mg IV push daily. Patient is on solumedrol 40mg q 6 hrs, Guaifenesin 600mg BID. Patient also on ipratropium bromide every 2hrs prn * Decreased PO Intake: Multifactorial. Patient states that he has to provide himself with food whilst living in a transitional home and unfortunately he does not like what they serve him. Patient also endorsing sore throat. Patient reporting that he has had poor appetite. Speech therapy consulted. Recommended puree diet and honey thick fluids with no straw. ST recommending speech therapy after discharge. Patient does not like puree diet. * Agitation: Patient has a history of COPD, he has worsening respiratory status and was getting agitated. Precedex infusion titrated off. Currently calm. * Physical deconditioning : Multifactorial. Patient lives in a transitional home and he reports that he has to provide food for himself otherwise he does not like what they serve. Patient c/o of unable to ambulate for long distances due to increased shortness of breath. He continues to smoke cigarettes despite SOB. Patient has muscle wasting and reports that he has significantly lost weight since he was diagnosed with lung cancer. Patient also endorsing sore throat. Patient may benefit from physical therapy if goals do not change though it can be difficulty for him to fully participate due to dyspnea. Total protein= 5.9, Albumin=1.8. Palliative care will continue to follow the patient during hospital course as condition evolves, to assist patient/decision-maker with understanding of their medical conditions, weighing benefits/burdens of treatment options, for clarification of goals of treatment. Additionally will assist with any symptoms of palliative concern Randa Tenorio Apr 13, 2017 17:19
--- NOTE | 2017-04-13 18:53 | MB ---
cc: YEFRI CRAIG MD Inpatient hematology oncology consultation DATE OF CONSULTATION 04/13/2017 DATE OF 1955 CHIEF COMPLAINT History of lung cancer. HISTORY OF PRESENT ILLNESS Mr. Adams is a 61-year-old gentleman with a history of lung cancer, hypertension, coronary artery disease, COPD and tobacco abuse that is current who was brought to the emergency room on April 05, 2017 with generalized weakness and shortness of breath that has been present for the past one week. The patient reports that he was diagnosed with lung cancer in November of 2016 and completed 5 weeks of radiation therapy. Chemotherapy is pending. He is established with Dr. Gentile or Suman who performs the radiation and a Dr. Stark who is located in [place] who will plan to start chemotherapy. On presentation he was found to have a temperature to 101. He was also found to have a pneumonia with a chest x-ray with an abnormality in his right lung base and in acute kidney injury. He is being treated with broad-spectrum antibiotics and is currently being hospitalized in the intensive care unit. On April 08, 2017 he was a halicat due to respiratory distress, tachycardia requiring BiPAP. At that point in time is when he was transferred to the intensive care unit. Palliative care team is following for assistance with the symptoms to include decreased oral intake, fatigue, agitation and physical deconditioning. Infectious disease team is following as well. He is currently on broad-spectrum antibiotics and cultures are being followed. He also has been seen by the cardiology team for atrial fibrillation with RVR. Currently he is on partial rebreather with good oxygen saturations. He reports that his breathing is improving. Oxygen is being weaned as tolerated by the primary service. LABORATORY DATA Laboratory studies with a white blood cell count 6.7, a hemoglobin of 8.0, platelet count of 143,000 with a differential that shows a low absolute lymphocyte count at 0.1. Chemistry studies with a sodium of 135, a creatinine of 0.89 and a glucose of 148. Calcium is 7.6, phosphorus 2.8. Magnesium 1.8. Albumin level was low at 1.8 on previous blood draws. IMAGING CT angiography from April 05 showed big mass-like area seen in the left hilum measuring approximately 3.9 x 4.2 x 3.9 cm in size. There is also enlarged mediastinal adenopathy. Mild emphysema was seen. No pleural effusions, no pneumothorax, no pulmonary embolism. PAST MEDICAL HISTORY 1. Lung cancer status post radiation. 2. Hypertension. 3. Coronary artery disease. 4. COPD. He is not on home oxygen. 5. Tobacco abuse current. PAST SURGICAL HISTORY 1. Abdominal surgery. 2. Cardiac surgery with stent placement. FAMILY HISTORY He reports that his mother had a history of lung cancer. He does have a family history of cardiac disease. SOCIAL HISTORY The patient is an active smoker. He reports occasional alcohol. No current illegal drug use. He lives at a snf. ALLERGIES NO KNOWN DRUG ALLERGIES. MEDICATIONS Current medications include: 1. Aspirin. 2. Cefepime. 3. Diltiazem. 4. Subcutaneous heparin. 5. Insulin. 6. Atrovent. 7. Lisinopril. 8. Metoprolol. PHYSICAL EXAMINATION VITAL SIGNS: Temperature of 98.5, pulse of 83, blood pressure 140/66, pulse ox is 99 on a non-rebreather. GENERAL: Frail man in no distress, resting in bed. HEAD: Normocephalic, atraumatic. Oropharynx clear. NECK: Supple with no palpable lymphadenopathy. CARDIOVASCULAR: Regular rate and rhythm with no murmurs. LUNGS: Clear to auscultation bilaterally. ABDOMEN: Soft, nontender, nondistended with bowel sounds present. EXTREMITIES: With no edema. NEUROLOGIC: Grossly intact. MUSCULOSKELETAL: With decreased muscle tone. PSYCHIATRIC: Appropriate mood and affect. REVIEW OF SYSTEMS Negative except for breathing issues. ASSESSMENT/PLAN History of lung cancer, currently under the care of outside physicians. He is status post radiation therapy by Dr. Will or Dr. Gentile and he follows with oncologist Dr. Stark. He reports that he is due to start chemotherapy. Once he is out of the intensive care unit he would like to follow up with those physicians. We will continue to follow while inpatient. MD VALERIE Crockett/CHACE /5:39 PM /6:25 PM KATARZYNA
[2017-04-14] VITALS (14 sets, daily range): BP systolic 138–161; BP diastolic 70–81; PULSE 69–97; RESP 18–28; TEMP 98.4–98.9; O2SAT 93–98
[2017-04-14] MEDS: RESP: IPRATROPIUM 0.5 MG/2.5 ML NEB NEB SCH ×4 (04:24→21:06)
[2017-04-14] MEDS: INSULIN NovoLIN REGULAR SUPPLEMENTAL SCALE SQ SCH ×4 (06:00→23:49)
[2017-04-14] MEDS: DILTIAZEM HCL 60 MG TAB PO SCH ×3 (06:35→20:56)
[2017-04-14] MEDS: NYSTAT/DIPHENHY/LIDO MOUTHWASH (Adult) 120ML SWISH-SWAL SCH ×4 (07:42→20:57)
[2017-04-14] MEDS: CEFEPIME 2000 MG/NS 100 ML IV SCH ×6 (07:43→23:49)
[2017-04-14] MEDS: DOCUSATE SODIUM 50 MG/SENNA 8.6 MG TAB PO SCH ×2 (07:43→20:54)
[2017-04-14] MEDS: LISINOPRIL 5 MG TAB PO SCH (07:44)
[2017-04-14] MEDS: ASPIRIN EC 81 MG TABEC PO SCH (07:44)
[2017-04-14] MEDS: METOPROLOL TARTRATE 50 MG TAB PO SCH ×2 (07:44→20:55)
[2017-04-14] MEDS: guaiFENesin E.R. 600 MG TAB PO SCH ×2 (07:44→20:55)
[2017-04-14] MEDS: methylPREDNISolone SOD SUCC 40 MG/1 ML VIAL IV PUSH SCH ×2 (07:45→20:56)
[2017-04-14] MEDS: PANTOPRAZOLE SODIUM 40 MG VIAL IV PUSH SCH (07:45)
[2017-04-14] MEDS: FUROSEMIDE 40 MG/4 ML VIAL IV PUSH SCH (07:45)
--- NOTE | 2017-04-14 07:45 | HHI.CCPN ---
Subjective Remarks/Hospital Course 03/09: This is a 61-year-old male with a PMH of Lung CA, HTN, CAD, COPD and Tobacco Abuse who was admitted on 04/06 by hospitalist service secondary to complaints of generalized weakness and SOB x1 wk and decreased PO intake. Recently diagnosed w/ Lung CA in November 2016, has completed 5wks of Radiation, pending Chemotherapy. States symptoms have been getting progressively worse. Denies fever, chills, nausea, vomiting or diarrhea. On arrival, BP 117/64, HR 133, O2 sat 97% on 2L NC, Temp 101.1. WBC normal however elevated neutrophil count. Creatinine 1.53, previously 0.86 on 09/25/16. Troponin negative. Lactic Acid normal. INR 1.1. CXR with trace right basilar infiltrate. CTA Pulm negative for PE, patchy bilateral pneumonia, left hilar mass concerning for carcinoma. Patient developed worsening respiratory distress and A. fib with RVR so was transferred to the ICU on morning of 04/08. He was placed on BiPAP and Cardizem drip and critical care was consulted for worsening respiratory failure and A. fib with RVR. I evaluated the patient on being notified immediately. At that time he was on BiPAP with full facemask and extremely agitated and anxious. He was given Ativan and morphine and subsequently started on a Precedex drip and BiPAP settings were adjusted. He was also given Lasix for diuresis as his chest x-ray suggested pulmonary edema and he had an elevated BNP. History was obtained by reviewing records and discussion with Dr. Lau 03/10: Breathing improved with diuresis yesterday. Still on nonrebreather facemask Patient awake and alert. Feeling hungry this afternoon at the time of my evaluation. Was awaiting PRBC transfusion. 04/10 Patient is on partial rebreather awake and alert. On Precedex drip. Afebrile. Off Cardizem drip. 04/11 No events overnight. Remains on Precedex drip. 04/12 No events overnight. Off Precedex drip remains on partial rebreather.Afebrile.Hypertensive. Patient remains on partial rebreather with good sats, states his breathing is better. 04/14 No evenst overnight. On 9L simple mask. Afebrile. Objective Vital Signs Date Time Temp Pulse Resp B/P (MAP) Pulse Ox O2 Delivery O2 Flow Rate FiO2 04/14/17 06:00 69 04/14/17 04:00 98.4 24 138/72 (94) 95 04/13/17 22:05 Simple Mask 9.00 04/12/17 19:00 70 Intake and Output 04/14/17 04/14/17 04/15/17 08:00 16:00 00:00 Intake Total 240 ml Output Total 1000 ml Balance -760 ml Result Diagram: 04/13/17 0410 04/13/17 0410 Imaging Last Impressions Chest X-Ray 04/13/17 0000 Signed Impressions: Service Date/Time: Thursday, April 13, 2017 07:28 - CONCLUSION: Diffuse interstitial process, unchanged. Pk Bae MD CT Angiography 04/05/17 0000 Signed Impressions: Service Date/Time: Wednesday, April 05, 2017 20:05 - CONCLUSION: 1. No pulmonary embolus. 2. Patchy bilateral pneumonia as above. 3. Vague left hilar mass concerning for carcinoma. 4. Upper limits of normal to mildly enlarged mediastinal lymph nodes. 5. Coronary artery calcification. Dmitri Manuel MD Objective Remarks GENERAL: PAtient is lying in bed in mild resp distress SKIN: Warm and dry. HEAD: Normocephalic. EYES: No scleral icterus. No injection or drainage. NECK: Supple, trachea midline. No JVD or lymphadenopathy. CARDIOVASCULAR: Regular rate and rhythm without murmurs, gallops, or rubs. RESPIRATORY: Breath sounds equal bilaterally. No accessory muscle use. GASTROINTESTINAL: Abdomen soft, non-tender, nondistended. MUSCULOSKELETAL: No cyanosis, or edema. BACK: Nontender without obvious deformity. No CVA tenderness. Neuro: Awake and alert. A/P Assessment and Plan 61-year-old male with: Severe sepsis Pneumonia COPD exacerbation Pulmonary edema Non-ST elevation [place] A. fib with RVR-now in RSR Lung cancer Hypertension Plan: Neuro: Monitor neuro status. Ativan and morphine when necessary as needed. CV: Monitor HR and BP keep MAP>65mmHg Echo showed EF 50-55%, Cards is following- Dr. Nava Continue with Cardizem 60mg Q8, Lopressor 50mg Q12, ASA, Lisinopril 5mg daily for BP control. Pulm: Wean down oxygen as moise keep sat >92% Bronchodilators, NIPPV PRN for resp distress Solumederol 40mg Q12, GI/liver: On PO diet Renal/: Monitor renal function, electrolytes replacement per protocol. Continue Lasix 40mg daily ID: Continue abx per ID ( cefepime) ID is following. Monitor for signs of infections ( Fever, WBC) Sputum 04/07: Pseudomonas, recheck sputum cx Heme-onc: Follow CBC and coags. History of lung cancer status post previous radiation therapy. One unit PRBC transfused 04/09 Onc is following Endocrine: SSI for glycemic control Prophylaxis: Pepcid/SCDs/subcutaneous Lovenox Palliative care is following Follow up on labs level 3 Rachel Otero MD Apr 14, 2017 07:45
[2017-04-14] MEDS: REMOVE OLD PATCH T-DERMAL SCH (07:46)
[2017-04-14] MEDS: HEPARIN SODIUM - SQ 10,000 UNITS/ML VIAL SQ SCH ×2 (07:46→20:56)
[2017-04-14] MEDS: SODIUM CHLORIDE 0.9% FLUSH 10 ML FLUSH IV FLUSH SCH ×2 (07:46→20:57)
[2017-04-14 09:09] LABS: HEMATOCRIT 23.7 % (39.0-51.0); HEMO FLAGS DIFF FINAL; LYMPH % 1.5 % (9.0-44.0); LYMPHOCYTE # 0.1 TH/MM3 (1.0-4.8); MEAN CELL VOLUME 97.8 FL (80.0-100.0); MEAN CORPUSCULAR HEMOGLOBIN 34.4 PG (27.0-34.0); MEAN CORPUSCULAR HGB CONC 35.2 % (32.0-36.0); MONO % 6.1 % (0.0-8.0); NEUT % 92.4 % (16.0-70.0); PLATELET COUNT 125 TH/MM3 (150-450); RED BLOOD COUNT 2.42 MIL/MM3 (4.50-5.90); RED CELL DISTRIBUTION WIDTH 16.8 % (11.6-17.2); WHITE BLOOD COUNT 6.5 TH/MM3 (4.0-11.0)
--- NOTE | 2017-04-14 09:27 | HHI.IDPN ---
Subjective Subjective Remarks Patient is a 61-year-old male, presented to the hospital complaining of one- week history of generalized weakness, as well as worsening shortness of breath. Denies any significant cough or sputum production. He was diagnosed to have lung cancer November 2016, and has received about 5 weeks of radiation therapy. He has not had any nausea or vomiting. Denies any chest pain. His initial chest x -ray showed a trace right base infiltrate. Patient was started on antibiotics for pneumonia. 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 His chest x-ray showed worsening infiltrates on the right side. He was transferred to the intensive care unit for closer monitoring. Patient has been requiring BiPAP for oxygenation. Patient has had fevers up to 101. Blood cultures are negative so far. Urine for Legionella and pneumococcal antigen are negative. Infectious disease consultation has been requested to evaluate the patient with worsening pneumonia Notes reviewed Temps ok States breathing is better Sats good on FM Last CXR with stable infiltrates Sputum with PSAE BC negative Antibiotics Current Medications Cefepime IV Medications (Trade) Dose Ordered Sig/[place] Route Start Time Stop Time Status Last Admin (NS Flush) 2 ml UNSCH PRN IV FLUSH 04/05/17 22:00 (NS Flush) 2 ml BID IV FLUSH 04/06/17 09:00 04/14/17 07:46 (Zofran Inj) 4 mg Q6H PRN IVP 04/05/17 22:00 (Tylenol) 650 mg Q6H PRN PO 04/05/17 22:00 04/07/17 15:39 ([place] 5-325 Mg) 1 tab Q4H PRN PO 04/05/17 22:00 04/12/17 08:21 (Dilaudid Pf Inj) 1 mg Q3H PRN IV PUSH 04/05/17 22:00 04/09/17 23:02 (Nata-Colace) 1 tab BID PO 04/06/17 09:00 04/13/17 20:28 (Milk Of Magnesia Liq) 30 ml Q12H PRN PO 04/05/17 22:00 (Senokot) 17.2 mg Q12H PRN PO 04/05/17 22:00 (Dulcolax Supp) 10 mg DAILY PRN RECTAL 04/05/17 22:00 (Lactulose Liq) 30 ml DAILY PRN PO 04/05/17 22:00 (Mucinex Er) 600 mg BID PO 04/06/17 09:00 04/14/17 07:44 (Heparin Inj) 5,000 units Q12HR SQ 04/06/17 09:00 04/14/17 07:46 (Magic Mouthwash Adult Liq) 10 ml QID SWISH-SWAL 04/06/17 13:00 04/14/17 07:42 (Protonix Inj) 40 mg DAILY IV PUSH 04/07/17 14:45 04/14/17 07:45 (Atrovent Neb) 0.5 mg Q6HR NEB NEB 04/08/17 10:00 04/14/17 04:24 (Atrovent Neb) 0.5 mg Q2HR NEB PRN NEB 04/08/17 06:00 Miscellaneous Information 1 Q361D XX 04/08/17 06:15 (Chlorhexidine 2% Cloth) Taper DAILY@04 TOP 04/09/17 04:00 04/05/18 03:59 04/13/17 04:00 (Chlorhexidine 2% Cloth) 3 pack UNSCH PRN TOP 04/08/17 06:15 (Morphine Inj) 4 mg Q4HR PRN IV PUSH 04/08/17 06:30 04/12/17 10:59 Cefepime HCl 2000 mg/Sodium Chloride 100 ml @ 200 mls/hr Q8H IV 04/08/17 16:00 04/14/17 07:43 (Cardizem) 60 mg Q8HR PO 04/08/17 22:00 04/14/17 06:35 (Ecotrin Ec) 81 mg DAILY PO 04/10/17 09:00 04/14/17 07:44 Potassium Chloride 100 ml @ 50 mls/hr Q2H PRN IV 04/10/17 08:00 Potassium Chloride 100 ml @ 50 mls/hr Q2H PRN IV 04/10/17 08:00 04/11/17 12:31 (K-Lyte Cl Eff) 50 meq UNSCH PRN PO 04/10/17 08:00 Potassium Chloride 100 ml @ 25 mls/hr UNSCH PRN IV 04/10/17 08:00 Potassium Chloride 100 ml @ 50 mls/hr Q2H PRN IV 04/10/17 08:00 Magnesium Sulfate 4 gm/Sodium Chloride 100 ml @ 50 mls/hr UNSCH PRN IV 04/10/17 08:00 (Mag-Ox) 800 mg UNSCH PRN PO 04/10/17 08:00 Magnesium Sulfate 2 gm/Sodium Chloride 100 ml @ 50 mls/hr UNSCH PRN IV 04/10/17 08:00 (K-Phos) 2,000 mg Q4H PRN PO 04/10/17 08:00 Sodium Phosphate 30 mmol/Sodium Chloride 250 ml @ 42 mls/hr UNSCH PRN IV 04/10/17 08:00 04/10/17 15:30 (K-Phos) 2,000 mg UNSCH PRN PO/TUBE 04/10/17 08:00 Potassium Phosphate 30 mmol/ Sodium Chloride 260 ml @ 42 mls/hr UNSCH PRN IV 04/10/17 08:00 (D50w (Vial) Inj) 50 ml UNSCH PRN IV PUSH 04/10/17 08:15 (Glucagon Inj) 1 mg UNSCH PRN OTHER 04/10/17 08:15 (NovoLIN R SUPPLEMENTAL SCALE) 1 Q6HR SQ 04/10/17 08:15 04/13/17 23:27 Miscellaneous Information 1 DAILY T-DERMAL 04/10/17 15:04 04/14/17 07:46 (SoluMEDROL INJ) 40 mg Q12H IV PUSH 04/11/17 09:00 04/14/17 07:45 (Lopressor) 50 mg Q12HR PO 04/11/17 21:00 04/14/17 07:44 (Lopressor Inj) 2.5 mg Q6H PRN IV PUSH 04/11/17 17:30 04/11/17 18:13 (Prinivil) 5 mg DAILY PO 04/12/17 09:00 04/14/17 07:44 (Lasix Inj) 40 mg DAILY IV PUSH 04/13/17 09:15 04/14/17 07:45 Lines PIV Past Medical History Lung CA Hypertension CAD COPD Tobacco Abuse Past Surgical History Abdominal surgery Allergies: Coded Allergies: No Known Allergies (Verified Allergy, Unknown, 04/05/17) Objective . Vital Signs Date Time Temp Pulse Resp B/P (MAP) Pulse Ox O2 Delivery O2 Flow Rate FiO2 04/14/17 08:54 97 Simple Mask 9.00 04/14/17 06:00 69 04/14/17 04:00 73 04/14/17 04:00 98.4 73 24 138/72 (94) 95 04/14/17 02:00 83 04/14/17 00:00 92 04/14/17 00:00 98.7 92 28 142/76 (98) 94 04/13/17 22:05 94 Simple Mask 9.00 04/13/17 22:00 84 04/13/17 21:24 99 Partial Rebreather 04/13/17 20:00 80 04/13/17 20:00 98.2 80 24 139/73 (95) 100 04/13/17 19:00 98 Partial Non-Rebreather 15.00 04/13/17 18:00 88 04/13/17 16:00 83 04/13/17 16:00 98.5 83 26 140/66 (90) 99 04/13/17 14:00 78 04/13/17 12:00 98.3 68 24 137/66 (89) 99 04/13/17 12:00 68 04/13/17 10:00 80 . Laboratory Tests Test 04/13/17 04:10 04/14/17 06:30 White Blood Count 6.7 TH/MM3 6.5 TH/MM3 Red Blood Count 2.43 MIL/MM3 2.42 MIL/MM3 Hemoglobin 8.0 GM/DL 8.3 GM/DL Hematocrit 23.5 % 23.7 % Mean Corpuscular Volume 96.8 FL 97.8 FL Mean Corpuscular Hemoglobin 33.0 PG 34.4 PG Mean Corpuscular Hemoglobin Concent 34.1 % 35.2 % Red Cell Distribution Width 16.5 % 16.8 % Platelet Count 143 TH/MM3 125 TH/MM3 Mean Platelet Volume 8.7 FL 9.9 FL Neutrophils (%) (Auto) 91.4 % 92.4 % Lymphocytes (%) (Auto) 2.2 % 1.5 % Monocytes (%) (Auto) 6.2 % 6.1 % Eosinophils (%) (Auto) 0.0 % 0.0 % Basophils (%) (Auto) 0.2 % 0.0 % Neutrophils # (Auto) 6.1 TH/MM3 6.0 TH/MM3 Lymphocytes # (Auto) 0.1 TH/MM3 0.1 TH/MM3 Monocytes # (Auto) 0.4 TH/MM3 0.4 TH/MM3 Eosinophils # (Auto) 0.0 TH/MM3 0.0 TH/MM3 Basophils # (Auto) 0.0 TH/MM3 0.0 TH/MM3 CBC Comment DIFF FINAL DIFF FINAL Differential Comment Laboratory Tests Test 04/13/17 04:10 04/14/17 06:30 Blood Urea Nitrogen 23 MG/DL Creatinine 0.89 MG/DL Random Glucose 140 MG/DL Calcium Level 7.6 MG/DL Phosphorus Level 2.8 MG/DL Magnesium Level 1.8 MG/DL Sodium Level 135 MEQ/L Potassium Level 3.5 MEQ/L Chloride Level 98 MEQ/L Carbon Dioxide Level 29.1 MEQ/L Anion Gap 8 MEQ/L Estimat Glomerular Filtration Rate 87 ML/MIN Imaging Chest X-Ray 04/10/17 0000 Signed Impressions: Service Date/Time: Monday, April 10, 2017 08:16 - CONCLUSION: 1. Bilateral predominantly interstitial process, right much worse than left. There may be slight interval improvement when compared to prior. 2. Fullness in the left perihilar distribution. Jaret Crouch MD Chest X-Ray 04/08/17 0000 Signed Impressions: Service Date/Time: Saturday, April 08, 2017 04:32 - CONCLUSION: New coarse infiltrate in the right lung most characteristic of pneumonia. Willy Pantoja MD CT Angiography 04/05/17 0000 Signed Impressions: Service Date/Time: Wednesday, April 05, 2017 20:05 - CONCLUSION: 1. No pulmonary embolus. 2. Patchy bilateral pneumonia as above. 3. Vague left hilar mass concerning for carcinoma. 4. Upper limits of normal to mildly enlarged mediastinal lymph nodes. 5. Coronary artery calcification. Dmitri Manuel MD Physical Exam GENERAL: awake and alert, NAD, on FM SKIN: Cool and dry. No generalized rash, no ecchymoses HEAD: Atraumatic. Normocephalic. No temporal wasting, or tenderness. EYES: [place] conjunctiva. No petechia or hemorrhage. Pupils equal, round and reactive to light. Extraocular movements full and intact. No scleral icterus. EARS, NOSE AND THROAT: Nose without bleeding or purulent nasal discharge. No sinus tenderness. Moist oral mucosa. CARDIOVASCULAR: Regular rate and rhythm. No murmurs, rubs or gallops heard RESPIRATORY: Coarse BS bilaterally, decreased on R side. No rales, wheezing or rhonchi ABDOMEN: Soft, non-tender, nondistended. Bowel sounds present and normoactive. No guarding. No rebound. No organomegaly. EXTREMITIES: No clubbing, cyanosis, or edema. No calf tenderness. Well perfused and warm. NEUROLOGICAL: Non-focal PSYCHIATRIC: Normal affect, calm and cooperative. LINE: No evidence of infection Assessment & Plan Remarks IMPRESSION Sepsis, due to PNA - clinicallyy better PNA, C/S PSAE - CXR no change - clinically better CAP, patient with newly Dx lung CA, S/P XRT - CXR stable COPD Respiratory failure RECOMMENDATION Continue Cefepime IV Monitor respiratory status Follow temps Monitor progress Wean O2 as tolerated Audrey Zamora MD Apr 14, 2017 09:27
[2017-04-14 10:09] LABS: BICARBONATE 29.8 MEQ/L (21.0-32.0); POTASSIUM 3.4 MEQ/L (3.5-5.1)
[2017-04-14] MEDS: NICOTINE 7 MG/24 HR PATCH T-DERMAL SCH (15:07)
[2017-04-14] MEDS: ACETAMINOPHEN/HYDROcodone 325 MG/5 MG TAB PO PRN ×2 (15:47→20:55)
--- NOTE | 2017-04-14 18:49 | MB ---
cc: OSVALDO NICOLAS DATE OF CONSULTATION 04/14/2017 REASON FOR CONSULTATION: COPD and bilateral pulmonary infiltrates. HISTORY OF THE PRESENT ILLNESS This is a 61-year-old white male who was admitted to the hospital with generalized weakness, shortness of breath, cough with expectoration. The patient has a prior history of carcinoma of the lung in November of this year and received radiation therapy. He had a chest x-ray done upon admission which showed a mild infiltrate in the right lower lung. Subsequently the patient went for CT scan of the chest and the CT chest demonstrated patchy bilateral pneumonia and a vague left hilar mass concerning for carcinoma and enlarged mediastinal lymph nodes and no pulmonary emboli. The patient has been placed on antibiotic therapy and was also on BiPap and a Cardizem drip for atrial fibrillation with RVR. Over the past 5 days his condition did improve. He has been switched to a nasal cannula at 4 liters but still short of breath but denies chest pains or hemoptysis. He has been diuresed aggressively but his chest x-ray still shows bilateral patchy infiltrates. PAST MEDICAL HISTORY Past history has included: 1. Carcinoma of the lung with radiation therapy. 2. History of COPD. 3. History of hypertension. 4. History of coronary artery disease. ALLERGIES None listed. PAST SURGICAL HISTORY Includes: 1. Abdominal surgery. 2. And lung biopsy SOCIAL HISTORY Habits, the patient smoked a pack per day for over 45 years and alcohol use moderate. FAMILY HISTORY Noncontributory. REVIEW OF SYSTEMS The patient has lost weight. He has cough, wheezing, orthopnea. Denies any nausea, vomiting but has some abdominal discomfort. No leg swelling or calf muscle pains. Denies any skin lesions or joint pains. He has generalized weakness. PHYSICAL EXAMINATION GENERAL: This thinly built middle-aged white male who is alert, pale and in mild distress. VITAL SIGNS: Blood pressure 100/60, pulse is 94, respirations 20, temperature 97.5. HEENT: Head normocephalic. Pupils are reactive. Sclerae are clear. Throat is mildly injected. Nasal mucosa is clear. NECK: Supple. No bruits or thyroid enlargement or lymphadenopathy. CHEST: Increased AP diameter with diffuse wheezes. There are crackles over the right lung field as well as left base. CARDIOVASCULAR: Heart sounds are regular S1-S2. No murmur. ABDOMEN: Soft, slightly tender in the upper abdomen. Bowel sounds are active. Liver just felt below costal margin. EXTREMITIES: No lesions. No edema. No calf tenderness. Reflexes are 1+ with no gross motor deficits. NEUROLOGIC: Cranial nerves grossly intact. RECTAL: Exam is deferred. SKIN: No lesions. IMPRESSION 1. He has bilateral pneumonia with hypoxemia. 2. COPD with acute exacerbation and chronic bronchitis with emphysema. 3. Pulmonary edema. 4. Atrial fibrillation with arteriosclerotic heart disease. 5. History of hypertension. PLAN The patient is already on antibiotic coverage given by the infectious disease service which includes cefepime and vancomycin and Zithromax. We will get a follow up chest x-ray in the a.m. Oncology evaluation is in progress in regards to his lung cancer which is being monitored with his oncologist. The patient will be given nebulized DuoNeb solution q.i.d. and we will start him on Symbicort 160/4.5 two puffs twice a day. Chemotherapy is being planned by his oncologist and once his clinical condition stabilizes we could possibly discharge him for outpatient chemotherapy. The steroids will be tapered down to 40 mg Solu-Medrol b.i.d. IV. Continue with diuretic therapy daily including Lasix. Bedside PFTs will be done when he is clinically stable. Thank you Dr. Otero for this consultation. Osvaldo Nicolas MD JRAMBO/CHACE /5:40 PM /6:24 PM
[2017-04-14] MEDS: BUDESONIDE-FORMOTEROL 160/4.5 MCG INHALER INH SCH (20:57)
[2017-04-14] MEDS ORDERED: REMOVE OLD NICODERM (NICOTINE) PATCH T-DERMAL SCH (21:00)
[2017-04-15] VITALS (12 sets, daily range): BP systolic 149–183; BP diastolic 74–96; PULSE 69–94; RESP 16–20; TEMP 97.4–98.9; O2SAT 94–98
--- NOTE | 2017-04-15 03:27 | RADRPT ---
EXAM DATE/TIME: 04/15/2017 02:18 [facility] COMPARISON: CHEST SINGLE AP, April 13, 2017, 7:28. INDICATIONS : Shortness of breath. MEDICAL HISTORY : Carcinoma, lung. Chronic obstructive pulmonary disease. Hypertension. SURGICAL HISTORY : None. ENCOUNTER: Subsequent ACUITY: 1 week PAIN SCORE: 0/10 LOCATION: Bilateral chest FINDINGS: There has been a mild improvement in the diffuse interstitial opacities when compared to 04/13/17. P ersistent interstitial opacities are present, but these are less confluent and less dense. The opaci ties are more prominent on the right and on the left. The heart is normal in size. Both hemidiaphra gms are well delineated. CONCLUSION: Slight improvement in diffuse bilateral interstitial process. Jessee Thornton MD on April 15, 2017 at 3:25 Board Certified Radiologist. This report was verified electronically.
[2017-04-15] MEDS: RESP: IPRATROPIUM 0.5 MG/2.5 ML NEB NEB SCH ×2 (03:57→08:15)
[2017-04-15] MEDS: CHLORHEXIDINE GLUCONATE 2 % 1 PACK (2 CLOTHS) TOP SCH (04:00)
[2017-04-15] MEDS: DILTIAZEM HCL 60 MG TAB PO SCH ×3 (05:42→21:08)
[2017-04-15] MEDS: INSULIN NovoLIN REGULAR SUPPLEMENTAL SCALE SQ SCH ×4 (05:48→23:01)
[2017-04-15 07:17] LABS: AUTOMATED NEUTROPHIL # 7.5 TH/MM3 (1.8-7.7); BASOPHIL % 0.1 % (0.0-2.0); HEMATOCRIT 26.2 % (39.0-51.0); LYMPH % 1.4 % (9.0-44.0); LYMPHOCYTE # 0.1 TH/MM3 (1.0-4.8); MEAN CELL VOLUME 96.9 FL (80.0-100.0); MEAN CORPUSCULAR HEMOGLOBIN 34.6 PG (27.0-34.0); MEAN CORPUSCULAR HGB CONC 35.7 % (32.0-36.0); MONO % 5.5 % (0.0-8.0); PLATELET COUNT 139 TH/MM3 (150-450); RED CELL DISTRIBUTION WIDTH 16.9 % (11.6-17.2)
[2017-04-15 07:27] LABS: HEMO FLAGS AUTO DIFF
[2017-04-15 07:39] LABS: BICARBONATE 34.3 MEQ/L (21.0-32.0); POTASSIUM 3.6 MEQ/L (3.5-5.1)
--- NOTE | 2017-04-15 08:00 | HHI.CCPN ---
Subjective Remarks/Hospital Course 03/09: This is a 61-year-old male with a PMH of Lung CA, HTN, CAD, COPD and Tobacco Abuse who was admitted on 04/06 by hospitalist service secondary to complaints of generalized weakness and SOB x1 wk and decreased PO intake. Recently diagnosed w/ Lung CA in November 2016, has completed 5wks of Radiation, pending Chemotherapy. States symptoms have been getting progressively worse. Denies fever, chills, nausea, vomiting or diarrhea. On arrival, BP 117/64, HR 133, O2 sat 97% on 2L NC, Temp 101.1. WBC normal however elevated neutrophil count. Creatinine 1.53, previously 0.86 on 09/25/16. Troponin negative. Lactic Acid normal. INR 1.1. CXR with trace right basilar infiltrate. CTA Pulm negative for PE, patchy bilateral pneumonia, left hilar mass concerning for carcinoma. Patient developed worsening respiratory distress and A. fib with RVR so was transferred to the ICU on morning of 04/08. He was placed on BiPAP and Cardizem drip and critical care was consulted for worsening respiratory failure and A. fib with RVR. I evaluated the patient on being notified immediately. At that time he was on BiPAP with full facemask and extremely agitated and anxious. He was given Ativan and morphine and subsequently started on a Precedex drip and BiPAP settings were adjusted. He was also given Lasix for diuresis as his chest x-ray suggested pulmonary edema and he had an elevated BNP. History was obtained by reviewing records and discussion with Dr. Lau 03/10: Breathing improved with diuresis yesterday. Still on nonrebreather facemask Patient awake and alert. Feeling hungry this afternoon at the time of my evaluation. Was awaiting PRBC transfusion. 04/10 Patient is on partial rebreather awake and alert. On Precedex drip. Afebrile. Off Cardizem drip. 04/11 No events overnight. Remains on Precedex drip. 04/12 No events overnight. Off Precedex drip remains on partial rebreather.Afebrile.Hypertensive. Patient remains on partial rebreather with good sats, states his breathing is better. 04/14 No events overnight. On 9L simple mask. Afebrile. 04/15 Patient remains on 9L simple mask. Afebrile. Objective Vital Signs Date Time Temp Pulse Resp B/P (MAP) Pulse Ox O2 Delivery O2 Flow Rate FiO2 04/15/17 06:44 Simple Mask 9.00 04/15/17 06:00 72 04/15/17 04:00 97.4 20 169/88 (115) 97 04/12/17 19:00 70 Intake and Output 04/15/17 04/15/17 04/16/17 08:00 16:00 00:00 Intake Total 180 ml Output Total 500 ml Balance -320 ml Result Diagram: 04/15/17 0442 04/15/17 0442 Other Results Laboratory Tests Test 04/15/17 04:42 White Blood Count 8.0 TH/MM3 Red Blood Count 2.70 MIL/MM3 Hemoglobin 9.3 GM/DL Hematocrit 26.2 % Mean Corpuscular Volume 96.9 FL Mean Corpuscular Hemoglobin 34.6 PG Mean Corpuscular Hemoglobin Concent 35.7 % Red Cell Distribution Width 16.9 % Platelet Count 139 TH/MM3 Mean Platelet Volume 9.9 FL Neutrophils (%) (Auto) 93.0 % Lymphocytes (%) (Auto) 1.4 % Monocytes (%) (Auto) 5.5 % Eosinophils (%) (Auto) 0.0 % Basophils (%) (Auto) 0.1 % Neutrophils # (Auto) 7.5 TH/MM3 Lymphocytes # (Auto) 0.1 TH/MM3 Monocytes # (Auto) 0.4 TH/MM3 Eosinophils # (Auto) 0.0 TH/MM3 Basophils # (Auto) 0.0 TH/MM3 CBC Comment AUTO DIFF Blood Urea Nitrogen 23 MG/DL Creatinine 0.88 MG/DL Random Glucose 119 MG/DL Calcium Level 7.9 MG/DL Sodium Level 132 MEQ/L Potassium Level 3.6 MEQ/L Chloride Level 92 MEQ/L Carbon Dioxide Level 34.3 MEQ/L Anion Gap 6 MEQ/L Estimat Glomerular Filtration Rate 88 ML/MIN Imaging Last Impressions Chest X-Ray 04/15/17 0600 Signed Impressions: Service Date/Time: Saturday, April 15, 2017 02:18 - CONCLUSION: Slight improvement in diffuse bilateral interstitial process. Jessee Thornton MD CT Angiography 04/05/17 0000 Signed Impressions: Service Date/Time: Wednesday, April 05, 2017 20:05 - CONCLUSION: 1. No pulmonary embolus. 2. Patchy bilateral pneumonia as above. 3. Vague left hilar mass concerning for carcinoma. 4. Upper limits of normal to mildly enlarged mediastinal lymph nodes. 5. Coronary artery calcification. Dmitri Manuel MD Objective Remarks GENERAL: PAtient is lying in bed in mild resp distress SKIN: Warm and dry. HEAD: Normocephalic. EYES: No scleral icterus. No injection or drainage. NECK: Supple, trachea midline. No JVD or lymphadenopathy. CARDIOVASCULAR: Regular rate and rhythm without murmurs, gallops, or rubs. RESPIRATORY: Breath sounds equal bilaterally. No accessory muscle use. GASTROINTESTINAL: Abdomen soft, non-tender, nondistended. MUSCULOSKELETAL: No cyanosis, or edema. BACK: Nontender without obvious deformity. No CVA tenderness. Neuro: Awake and alert. A/P Assessment and Plan 61-year-old male with: Severe sepsis Pneumonia COPD exacerbation Pulmonary edema Non-ST elevation [place] PAF Lung cancer Hypertension Plan: Neuro: Monitor neuro status. Ativan and morphine when necessary as needed. CV: Monitor HR and BP keep MAP>65mmHg Echo showed EF 50-55%, Cards is following- Dr. Nava Continue with Cardizem 60mg Q8, Lopressor 50mg Q12, ASA, Lisinopril 5mg daily for BP control. Pulm: Wean down oxygen as moise keep sat >92% Bronchodilators, NIPPV PRN for resp distress Solumederol 40mg Q12, Symbicort. Pulm is following- Dr. Nicolas. CXR today- mild improvements in pulm infiltrates. Continue with diuretics. GI/liver: On PO diet Renal/: Monitor renal function, electrolytes replacement per protocol. Continue Lasix 40mg daily ID: Continue abx per ID ( cefepime) ID is following. Monitor for signs of infections ( Fever, WBC) Sputum 04/07: Pseudomonas, recheck sputum cx Heme-onc: Monitor CBC. History of lung cancer status post previous radiation therapy. One unit PRBC transfused 04/09 Onc is following Endocrine: SSI for glycemic control Prophylaxis: Pepcid/SCDs/subcutaneous Lovenox Palliative care is following Code status: No code DNR Will transfer to floor and consult HEPAS . level 3 Rachel Otero MD Apr 15, 2017 08:00
[2017-04-15 08:27] LABS: BANDS 8 % (0-6); NEUTROPHIL # MANUAL DIFF 7.3 TH/MM3 (1.8-7.7); PLATELET ESTIMATE SMEAR LOW (NORMAL); PLATELET MORPHOLOGY NORMAL (NORMAL); POLYS (SEG NEUTROPHILS) 83 % (16-70); WBC DIFF SAMPLE 100
[2017-04-15 08:28] LABS: OVALOCYTES 1+ (NORMAL); SCAN/DIFF FINAL DIFF MANUAL
[2017-04-15] MEDS: guaiFENesin E.R. 600 MG TAB PO SCH ×2 (08:55→21:10)
[2017-04-15] MEDS: LISINOPRIL 5 MG TAB PO SCH (08:55)
[2017-04-15] MEDS: CEFEPIME 2000 MG/NS 100 ML IV SCH ×6 (08:55→23:02)
[2017-04-15] MEDS: METOPROLOL TARTRATE 50 MG TAB PO SCH ×2 (08:55→21:08)
[2017-04-15] MEDS: BUDESONIDE-FORMOTEROL 160/4.5 MCG INHALER INH SCH ×2 (08:55→21:03)
[2017-04-15] MEDS: methylPREDNISolone SOD SUCC 40 MG/1 ML VIAL IV PUSH SCH ×2 (08:56→21:06)
[2017-04-15] MEDS: ASPIRIN EC 81 MG TABEC PO SCH (08:56)
[2017-04-15] MEDS: PANTOPRAZOLE SODIUM 40 MG VIAL IV PUSH SCH (08:56)
[2017-04-15] MEDS: FUROSEMIDE 40 MG/4 ML VIAL IV PUSH SCH (08:56)
[2017-04-15] MEDS: NICOTINE 7 MG/24 HR PATCH T-DERMAL SCH (08:57)
[2017-04-15] MEDS: SODIUM CHLORIDE 0.9% FLUSH 10 ML FLUSH IV FLUSH SCH ×2 (08:57→21:04)
[2017-04-15] MEDS: DOCUSATE SODIUM 50 MG/SENNA 8.6 MG TAB PO SCH ×2 (08:57→21:08)
[2017-04-15] MEDS: NYSTAT/DIPHENHY/LIDO MOUTHWASH (Adult) 120ML SWISH-SWAL SCH ×4 (08:57→21:11)
[2017-04-15] MEDS: HEPARIN SODIUM - SQ 10,000 UNITS/ML VIAL SQ SCH ×2 (08:57→21:06)
--- NOTE | 2017-04-15 10:29 | HHI.IDPN ---
Subjective Subjective Remarks Patient is a 61-year-old male, presented to the hospital complaining of one- week history of generalized weakness, as well as worsening shortness of breath. Denies any significant cough or sputum production. He was diagnosed to have lung cancer November 2016, and has received about 5 weeks of radiation therapy. He has not had any nausea or vomiting. Denies any chest pain. His initial chest x -ray showed a trace right base infiltrate. Patient was started on antibiotics for pneumonia. Late last night caddie today, patient had deterioration with increasing shortness of breath and increasing oxygen requirement. His chest x-ray showed worsening infiltrates on the right side. He was transferred to the intensive care unit for closer monitoring. Patient has been requiring BiPAP for oxygenation. Patient has had fevers up to 101. Blood cultures are negative so far. Urine for Legionella and pneumococcal antigen are negative. Infectious disease consultation has been requested to evaluate the patient with worsening pneumonia Notes reviewed Good sats on FM Temps ok States breathing is better Last CXR with improving infiltrates Sputum with PSAE BC negative Antibiotics Current Medications Cefepime IV Medications (Trade) Dose Ordered Sig/[place] Route Start Time Stop Time Status Last Admin (NS Flush) 2 ml UNSCH PRN IV FLUSH 04/05/17 22:00 (NS Flush) 2 ml BID IV FLUSH 04/06/17 09:00 04/15/17 08:57 (Zofran Inj) 4 mg Q6H PRN IVP 04/05/17 22:00 (Tylenol) 650 mg Q6H PRN PO 04/05/17 22:00 04/07/17 15:39 ([place] 5-325 Mg) 1 tab Q4H PRN PO 04/05/17 22:00 04/14/17 20:55 (Dilaudid Pf Inj) 1 mg Q3H PRN IV PUSH 04/05/17 22:00 04/09/17 23:02 (Nata-Colace) 1 tab BID PO 04/06/17 09:00 04/14/17 20:54 (Milk Of Magnesia Liq) 30 ml Q12H PRN PO 04/05/17 22:00 (Senokot) 17.2 mg Q12H PRN PO 04/05/17 22:00 (Dulcolax Supp) 10 mg DAILY PRN RECTAL 04/05/17 22:00 (Lactulose Liq) 30 ml DAILY PRN PO 04/05/17 22:00 (Mucinex Er) 600 mg BID PO 04/06/17 09:00 04/15/17 08:55 (Heparin Inj) 5,000 units Q12HR SQ 04/06/17 09:00 04/15/17 08:57 (Magic Mouthwash Adult Liq) 10 ml QID SWISH-SWAL 04/06/17 13:00 04/15/17 08:57 (Protonix Inj) 40 mg DAILY IV PUSH 04/07/17 14:45 04/15/17 08:56 (Atrovent Neb) 0.5 mg Q6HR NEB NEB 04/08/17 10:00 04/15/17 08:15 (Atrovent Neb) 0.5 mg Q2HR NEB PRN NEB 04/08/17 06:00 Miscellaneous Information 1 Q361D XX 04/08/17 06:15 (Chlorhexidine 2% Cloth) Taper DAILY@04 TOP 04/09/17 04:00 04/05/18 03:59 04/13/17 04:00 (Chlorhexidine 2% Cloth) 3 pack UNSCH PRN TOP 04/08/17 06:15 (Morphine Inj) 4 mg Q4HR PRN IV PUSH 04/08/17 06:30 04/12/17 10:59 Cefepime HCl 2000 mg/Sodium Chloride 100 ml @ 200 mls/hr Q8H IV 04/08/17 16:00 04/15/17 08:55 (Cardizem) 60 mg Q8HR PO 04/08/17 22:00 04/15/17 05:42 (Ecotrin Ec) 81 mg DAILY PO 04/10/17 09:00 04/15/17 08:56 Potassium Chloride 100 ml @ 50 mls/hr Q2H PRN IV 04/10/17 08:00 Potassium Chloride 100 ml @ 50 mls/hr Q2H PRN IV 04/10/17 08:00 04/11/17 12:31 (K-Lyte Cl Eff) 50 meq UNSCH PRN PO 04/10/17 08:00 04/14/17 13:26 Potassium Chloride 100 ml @ 25 mls/hr UNSCH PRN IV 04/10/17 08:00 Potassium Chloride 100 ml @ 50 mls/hr Q2H PRN IV 04/10/17 08:00 Magnesium Sulfate 4 gm/Sodium Chloride 100 ml @ 50 mls/hr UNSCH PRN IV 04/10/17 08:00 (Mag-Ox) 800 mg UNSCH PRN PO 04/10/17 08:00 Magnesium Sulfate 2 gm/Sodium Chloride 100 ml @ 50 mls/hr UNSCH PRN IV 04/10/17 08:00 (K-Phos) 2,000 mg Q4H PRN PO 04/10/17 08:00 Sodium Phosphate 30 mmol/Sodium Chloride 250 ml @ 42 mls/hr UNSCH PRN IV 04/10/17 08:00 04/10/17 15:30 (K-Phos) 2,000 mg UNSCH PRN PO/TUBE 04/10/17 08:00 Potassium Phosphate 30 mmol/ Sodium Chloride 260 ml @ 42 mls/hr UNSCH PRN IV 04/10/17 08:00 (D50w (Vial) Inj) 50 ml UNSCH PRN IV PUSH 04/10/17 08:15 (Glucagon Inj) 1 mg UNSCH PRN OTHER 04/10/17 08:15 (NovoLIN R SUPPLEMENTAL SCALE) 1 Q6HR SQ 04/10/17 08:15 04/14/17 23:49 (SoluMEDROL INJ) 40 mg Q12H IV PUSH 04/11/17 09:00 04/15/17 08:56 (Lopressor) 50 mg Q12HR PO 04/11/17 21:00 04/15/17 08:55 (Lopressor Inj) 2.5 mg Q6H PRN IV PUSH 04/11/17 17:30 04/11/17 18:13 (Prinivil) 5 mg DAILY PO 04/12/17 09:00 04/15/17 08:55 (Lasix Inj) 40 mg DAILY IV PUSH 04/13/17 09:15 04/15/17 08:56 (Habitrol 7 Mg Patch.24 Hr) 1 patch DAILY T-DERMAL 04/14/17 14:43 04/15/17 08:57 Miscellaneous Information 1 HS T-DERMAL 04/14/17 21:00 (Symbicort 160-4.5 Mcg Inh) 1 puff Q12HR INH 04/14/17 21:00 04/15/17 08:55 Lines PIV Past Medical History Lung CA Hypertension CAD COPD Tobacco Abuse Past Surgical History Abdominal surgery Allergies: Coded Allergies: No Known Allergies (Verified Allergy, Unknown, 04/05/17) Objective . Vital Signs Date Time Temp Pulse Resp B/P (MAP) Pulse Ox O2 Delivery O2 Flow Rate FiO2 04/15/17 08:17 98 Nasal Cannula 4.00 04/15/17 08:00 98.9 81 16 183/93 (123) 98 04/15/17 08:00 81 04/15/17 07:00 98 Nasal Cannula 7.00 04/15/17 06:44 Simple Mask 9.00 04/15/17 06:30 Nasal Cannula 5.00 04/15/17 06:00 72 04/15/17 04:00 71 04/15/17 04:00 97.4 71 20 169/88 (115) 97 04/15/17 02:00 69 04/15/17 00:00 98.6 82 20 157/74 (101) 94 04/15/17 00:00 82 04/14/17 22:00 97 04/14/17 21:06 97 Nasal Cannula 4.00 04/14/17 20:00 92 04/14/17 20:00 93 Nasal Cannula 4.00 04/14/17 20:00 98.7 92 20 161/81 (107) 93 04/14/17 18:06 20 04/14/17 18:00 87 04/14/17 16:00 98.9 82 20 148/70 (96) 94 04/14/17 16:00 82 04/14/17 14:00 88 04/14/17 12:00 75 04/14/17 12:00 98.6 75 18 141/75 (97) 98 04/14/17 12:00 98 Simple Mask 7.00 . Laboratory Tests Test 04/14/17 06:30 04/15/17 04:42 White Blood Count 6.5 TH/MM3 8.0 TH/MM3 Red Blood Count 2.42 MIL/MM3 2.70 MIL/MM3 Hemoglobin 8.3 GM/DL 9.3 GM/DL Hematocrit 23.7 % 26.2 % Mean Corpuscular Volume 97.8 FL 96.9 FL Mean Corpuscular Hemoglobin 34.4 PG 34.6 PG Mean Corpuscular Hemoglobin Concent 35.2 % 35.7 % Red Cell Distribution Width 16.8 % 16.9 % Platelet Count 125 TH/MM3 139 TH/MM3 Mean Platelet Volume 9.9 FL 9.9 FL Neutrophils (%) (Auto) 92.4 % 93.0 % Lymphocytes (%) (Auto) 1.5 % 1.4 % Monocytes (%) (Auto) 6.1 % 5.5 % Eosinophils (%) (Auto) 0.0 % 0.0 % Basophils (%) (Auto) 0.0 % 0.1 % Neutrophils # (Auto) 6.0 TH/MM3 7.5 TH/MM3 Lymphocytes # (Auto) 0.1 TH/MM3 0.1 TH/MM3 Monocytes # (Auto) 0.4 TH/MM3 0.4 TH/MM3 Eosinophils # (Auto) 0.0 TH/MM3 0.0 TH/MM3 Basophils # (Auto) 0.0 TH/MM3 0.0 TH/MM3 CBC Comment DIFF FINAL AUTO DIFF Differential Comment FINAL DIFF MANUAL Differential Total Cells Counted 100 Neutrophils % (Manual) 83 % Band Neutrophils % 8 % Lymphocytes % 2 % Monocytes % 7 % Neutrophils # (Manual) 7.3 TH/MM3 Platelet Estimate LOW Platelet Morphology Comment NORMAL Ovalocytes 1+ Laboratory Tests Test 04/14/17 06:30 04/15/17 04:42 Blood Urea Nitrogen 24 MG/DL 23 MG/DL Creatinine 0.72 MG/DL 0.88 MG/DL Random Glucose 118 MG/DL 119 MG/DL Calcium Level 7.8 MG/DL 7.9 MG/DL Sodium Level 135 MEQ/L 132 MEQ/L Potassium Level 3.4 MEQ/L 3.6 MEQ/L Chloride Level 96 MEQ/L 92 MEQ/L Carbon Dioxide Level 29.8 MEQ/L 34.3 MEQ/L Anion Gap 9 MEQ/L 6 MEQ/L Estimat Glomerular Filtration Rate 111 ML/MIN 88 ML/MIN B-Type Natriuretic Peptide 438 PG/ML Imaging Chest X-Ray 04/10/17 0000 Signed Impressions: Service Date/Time: Monday, April 10, 2017 08:16 - CONCLUSION: 1. Bilateral predominantly interstitial process, right much worse than left. There may be slight interval improvement when compared to prior. 2. Fullness in the left perihilar distribution. Jaret Crouch MD Chest X-Ray 04/08/17 0000 Signed Impressions: Service Date/Time: Saturday, April 08, 2017 04:32 - CONCLUSION: New coarse infiltrate in the right lung most characteristic of pneumonia. Willy Pantoja MD CT Angiography 04/05/17 0000 Signed Impressions: Service Date/Time: Wednesday, April 05, 2017 20:05 - CONCLUSION: 1. No pulmonary embolus. 2. Patchy bilateral pneumonia as above. 3. Vague left hilar mass concerning for carcinoma. 4. Upper limits of normal to mildly enlarged mediastinal lymph nodes. 5. Coronary artery calcification. Dmitri Manuel MD Physical Exam GENERAL: awake and alert, NAD, on FM SKIN: Cool and dry. No generalized rash, no ecchymoses HEAD: Atraumatic. Normocephalic. No temporal wasting, or tenderness. EYES: Kieler conjunctiva. No petechia or hemorrhage. Pupils equal, round and reactive to light. Extraocular movements full and intact. No scleral icterus. EARS, NOSE AND THROAT: Nose without bleeding or purulent nasal discharge. No sinus tenderness. Moist oral mucosa. CARDIOVASCULAR: Regular rate and rhythm. No murmurs, rubs or gallops heard RESPIRATORY: Coarse BS bilaterally, decreased on R side. No rales, wheezing or rhonchi ABDOMEN: Soft, non-tender, nondistended. Bowel sounds present and normoactive. No guarding. No rebound. No organomegaly. EXTREMITIES: No clubbing, cyanosis, or edema. No calf tenderness. Well perfused and warm. NEUROLOGICAL: Non-focal PSYCHIATRIC: Normal affect, calm and cooperative. LINE: No evidence of infection Assessment & Plan Remarks IMPRESSION Sepsis, due to PNA - clinicallyy better PNA, C/S PSAE - CXR no change - clinically better CAP, patient with newly Dx lung CA, S/P XRT - CXR stable COPD Respiratory failure RECOMMENDATION Continue Cefepime IV - if stable, switch to po Levaquin tomorrow and complete PNA RX with oral Abx Monitor respiratory status Follow temps Monitor progress Wean O2 as tolerated Slowly improving Audrey Zamora MD Apr 15, 2017 10:28
--- NOTE | 2017-04-15 12:26 | HHI.PR ---
Subjective Remarks He is better. NO chest pain. Needs a Higher Nicotine patch. Sputum is white. CXR stable. Objective Vital Signs Date Time Temp Pulse Resp B/P (MAP) Pulse Ox O2 Delivery O2 Flow Rate FiO2 04/15/17 12:00 85 04/15/17 12:00 98.7 85 20 160/83 (108) 95 04/15/17 10:00 85 04/15/17 08:17 98 Nasal Cannula 4.00 04/15/17 08:00 98.9 81 16 183/93 (123) 98 04/15/17 08:00 81 04/15/17 07:00 98 Nasal Cannula 7.00 04/15/17 06:44 Simple Mask 9.00 04/15/17 06:30 Nasal Cannula 5.00 04/15/17 06:00 72 04/15/17 04:00 71 04/15/17 04:00 97.4 71 20 169/88 (115) 97 04/15/17 02:00 69 04/15/17 00:00 98.6 82 20 157/74 (101) 94 04/15/17 00:00 82 04/14/17 22:00 97 04/14/17 21:06 97 Nasal Cannula 4.00 04/14/17 20:00 92 04/14/17 20:00 93 Nasal Cannula 4.00 04/14/17 20:00 98.7 92 20 161/81 (107) 93 04/14/17 18:06 20 04/14/17 18:00 87 04/14/17 16:00 98.9 82 20 148/70 (96) 94 04/14/17 16:00 82 04/14/17 14:00 88 I/O 04/14/17 04/14/17 04/14/17 04/15/17 04/15/17 04/15/17 07:00 15:00 23:00 07:00 15:00 23:00 Intake Total 340 ml 98 ml 480 ml 180 ml Output Total 1000 ml 500 ml Balance -660 ml 98 ml 480 ml -320 ml Intake Oral 240 ml 480 ml 180 ml IV Total 100 ml 98 ml Output Urine Total 1000 ml 500 ml # Voids 3 # Bowel Movements 0 Result Diagram: 04/15/1744104/15/17441 Objective Remarks GENERAL: This thinly built middle-aged white male who is alert, pale and in no distress. HEENT: Head normocephalic. Pupils are reactive. Sclerae are clear. Throat is mildly injected. Nasal mucosa is clear. NECK: Supple. No bruits or thyroid enlargement or lymphadenopathy. CHEST: Increased AP diameter with occ wheezes. There are crackles over the right lung field as well as left base. CARDIOVASCULAR: Heart sounds are regular S1-S2. No murmur. ABDOMEN: Soft, non tender abdomen. Bowel sounds are active. Liver just felt below costal margin. EXTREMITIES: No lesions. No edema. No calf tenderness. Reflexes are 1+ with no gross motor deficits. NEUROLOGIC: Cranial nerves grossly intact. RECTAL: Exam is deferred. SKIN: No lesions. Assessment and Plan Assessment and Plan IMPRESSION 1. He has bilateral pneumonia with hypoxemia. 2. COPD with acute exacerbation and chronic bronchitis with emphysema. 3. Pulmonary edema. 4. Atrial fibrillation with arteriosclerotic heart disease. 5. History of hypertension. Plan : 1. Wean O2 to keep sat >92. 2. PFT in am. 3. Taper solumedrol to 40 mg q12h. 4. Continue antibiotics.Levaquin 5. Continue Lasix 40 mg IV daily. 6. CBC,BMP in am 7. Nicotine patch 14 mg / 24 HR Michael Nicolas MD Apr 15, 2017 12:26
[2017-04-15] MEDS: NICOTINE 14 MG/24 HR PATCH T-DERMAL SCH (14:15)
--- NOTE | 2017-04-15 16:12 | HHI.HCPN ---
Reason for visit a. To assist with evaluation and management of symptoms including: shortness of breath, agitation, decreased oral intake, physical deconditioning b. To assist medical decision maker(s) with: better understanding of current medical conditions; weighing benefits/burdens of medical treatment options; making medical treatment decisions. Subjective/Interval History Mr Adams is a 61 years old male with a past medical history of lung cancer, COPD, hypertension, CAD and tobacco use. Patient was diagnosed with lung cancer in November, and he underwent 5 weeks of radiation and pending chemotherapy treatment, though patient`s states that he did have 1 treatment of chemotherapy. Patient currently resides in a transitional home. Patient was accompanied by his friends to the ER on 04/05/17 complaining of shortness on breath, worsening weakness, fatigue and poor appetite for 5 days prior to ER visit. Patient seen in his room getting ready to be transferred to room 1434. Patient is awake, alert and oriented to self, place and situation. Patient denies pain at this time, endorses good appetite. Patient has been eating mostly 100% of his meals, and a few meals especially lunch and he sometimes eats 25% only of his dinner. Patient states that he gets "picky" with what he eats sometimes. Patient afebrile, SBP 150s to 180s. Currently on 4 L nasal with O2 saturation in the mid to high 90s. Patient not showing any signs of respiratory distress. Chest x-ray today shows slight improvement in diffuse bilateral interstitial process. Laboratory workup revealing WBC 8.0, hemoglobin 9.3, hematocrit 26.2, platelet count 139, sodium 132, potassium 3.6, BUN/creatinine 23/0.88, BNP 438. Pulmonology Dr. Azam Avery consulted on 04/14/17 for management of dyspnea and pneumonia. ID following. Patient looking forward to be discharged and following up with his outpatient oncologist and starting chemotherapy. Family/friend interactions No family at bedside. . Advance Directives Health Care Surrogate: Copy in medical record Advance Directive Specifics Date completed: 04/08/2017- [facility] . Health Care Surrogate(s): [facility]- (Long time friend-15 yrs) Kay Rizvi [phone] Alternate [facility]- Cousin- Dahiana Mayorga [phone] . Significant change in goals: No changes in goals-remain aggressive shortness no cord. . Objective Vital Signs Date Time Temp Pulse Resp B/P (MAP) Pulse Ox O2 Delivery O2 Flow Rate FiO2 04/15/17 14:00 81 04/15/17 12:00 85 04/15/17 12:00 98.7 85 20 160/83 (108) 95 04/15/17 10:00 85 04/15/17 08:17 98 Nasal Cannula 4.00 04/15/17 08:00 98.9 81 16 183/93 (123) 98 04/15/17 08:00 81 04/15/17 07:00 98 Nasal Cannula 7.00 04/15/17 06:44 Simple Mask 9.00 04/15/17 06:30 Nasal Cannula 5.00 04/15/17 06:00 72 04/15/17 04:00 71 04/15/17 04:00 97.4 71 20 169/88 (115) 97 04/15/17 02:00 69 04/15/17 00:00 98.6 82 20 157/74 (101) 94 04/15/17 00:00 82 04/14/17 22:00 97 04/14/17 21:06 97 Nasal Cannula 4.00 04/14/17 20:00 92 04/14/17 20:00 93 Nasal Cannula 4.00 04/14/17 20:00 98.7 92 20 161/81 (107) 93 04/14/17 18:06 20 04/14/17 18:00 87 04/14/17 16:00 98.9 82 20 148/70 (96) 94 04/14/17 16:00 82 Intake & Output 04/15/17 04/15/17 07:00 19:00 Intake Total 180 ml 480 ml Output Total 500 ml 1800 ml Balance -320 ml -1320 ml Intake Oral 180 ml 480 ml Output Urine Total 500 ml 1800 ml # Bowel Movements 0 Physical Exam CONSTITUTIONAL/GENERAL: This is an ill-looking patient, who looks older than stated age.Patient looks pale. TUBES/LINES/DRAINS: Nasal cannula,SCDs, PIVs SKIN: Pale. Ecchymoses on upper extremities. No wounds seen anteriorly. Skin temperature appropriate. Not diaphoretic. HEAD: Atraumatic. Normocephalic. EYES: Pupils equal and round and reactive. Extraocular motions intact. No injection or drainage. Fundi not examined. ENT: Hearing grossly normal. Nose without bleeding or purulent drainage. Moist oral mucosa. Poor dentition NECK: Trachea midline. Supple, nontender. CARDIOVASCULAR: Irregular rate and rhythm without murmurs, gallops, or rubs. No JVD. Peripheral pulses symmetric. RESPIRATORY/CHEST: Symmetric,mildly labored respirations. Crackles over right lung field. Occassional unproductive cough. Breath sounds equal bilaterally. No wheezes. GASTROINTESTINAL: Abdomen soft, non-tender, nondistended. No guarding. Bowel sounds present. GENITOURINARY: Without palpable bladder distension. MUSCULOSKELETAL: Extremities without clubbing, cyanosis, or edema. No joint tenderness or effusion noted. No calf tenderness. No mottling or clubbing. NEUROLOGICAL: Awake, alert and oriented to self, place and situation. Motor and sensory grossly within normal limits. Follows commands. Moves all extremities. PSYCHIATRIC: Calm. No obvious anxiety/depression. no apparent hallucinations or other psychotic thought process. . Diagnostic Tests Laboratory Laboratory Tests Test 04/13/17 04:10 04/14/17 06:30 04/15/17 04:42 White Blood Count 6.7 TH/MM3 (4.0-11.0) 6.5 TH/MM3 (4.0-11.0) 8.0 TH/MM3 (4.0-11.0) Red Blood Count 2.43 MIL/MM3 (4.50-5.90) 2.42 MIL/MM3 (4.50-5.90) 2.70 MIL/MM3 (4.50-5.90) Hemoglobin 8.0 GM/DL (13.0-17.0) 8.3 GM/DL (13.0-17.0) 9.3 GM/DL (13.0-17.0) Hematocrit 23.5 % (39.0-51.0) 23.7 % (39.0-51.0) 26.2 % (39.0-51.0) Mean Corpuscular Volume 96.8 FL (80.0-100.0) 97.8 FL (80.0-100.0) 96.9 FL (80.0-100.0) Mean Corpuscular Hemoglobin 33.0 PG (27.0-34.0) 34.4 PG (27.0-34.0) 34.6 PG (27.0-34.0) Mean Corpuscular Hemoglobin Concent 34.1 % (32.0-36.0) 35.2 % (32.0-36.0) 35.7 % (32.0-36.0) Red Cell Distribution Width 16.5 % (11.6-17.2) 16.8 % (11.6-17.2) 16.9 % (11.6-17.2) Platelet Count 143 TH/MM3 (150-450) 125 TH/MM3 (150-450) 139 TH/MM3 (150-450) Mean Platelet Volume 8.7 FL (7.0-11.0) 9.9 FL (7.0-11.0) 9.9 FL (7.0-11.0) Neutrophils (%) (Auto) 91.4 % (16.0-70.0) 92.4 % (16.0-70.0) 93.0 % (16.0-70.0) Lymphocytes (%) (Auto) 2.2 % (9.0-44.0) 1.5 % (9.0-44.0) 1.4 % (9.0-44.0) Monocytes (%) (Auto) 6.2 % (0.0-8.0) 6.1 % (0.0-8.0) 5.5 % (0.0-8.0) Eosinophils (%) (Auto) 0.0 % (0.0-4.0) 0.0 % (0.0-4.0) 0.0 % (0.0-4.0) Basophils (%) (Auto) 0.2 % (0.0-2.0) 0.0 % (0.0-2.0) 0.1 % (0.0-2.0) Neutrophils # (Auto) 6.1 TH/MM3 (1.8-7.7) 6.0 TH/MM3 (1.8-7.7) 7.5 TH/MM3 (1.8-7.7) Lymphocytes # (Auto) 0.1 TH/MM3 (1.0-4.8) 0.1 TH/MM3 (1.0-4.8) 0.1 TH/MM3 (1.0-4.8) Monocytes # (Auto) 0.4 TH/MM3 (0-0.9) 0.4 TH/MM3 (0-0.9) 0.4 TH/MM3 (0-0.9) Eosinophils # (Auto) 0.0 TH/MM3 (0-0.4) 0.0 TH/MM3 (0-0.4) 0.0 TH/MM3 (0-0.4) Basophils # (Auto) 0.0 TH/MM3 (0-0.2) 0.0 TH/MM3 (0-0.2) 0.0 TH/MM3 (0-0.2) CBC Comment DIFF FINAL DIFF FINAL AUTO DIFF Differential Comment FINAL DIFF MANUAL Blood Urea Nitrogen 23 MG/DL (7-18) 24 MG/DL (7-18) 23 MG/DL (7-18) Creatinine 0.89 MG/DL (0.60-1.30) 0.72 MG/DL (0.60-1.30) 0.88 MG/DL (0.60-1.30) Random Glucose 140 MG/DL (74-106) 118 MG/DL (74-106) 119 MG/DL (74-106) Calcium Level 7.6 MG/DL (8.5-10.1) 7.8 MG/DL (8.5-10.1) 7.9 MG/DL (8.5-10.1) Phosphorus Level 2.8 MG/DL (2.5-4.9) Magnesium Level 1.8 MG/DL (1.5-2.5) Sodium Level 135 MEQ/L (136-145) 135 MEQ/L (136-145) 132 MEQ/L (136-145) Potassium Level 3.5 MEQ/L (3.5-5.1) 3.4 MEQ/L (3.5-5.1) 3.6 MEQ/L (3.5-5.1) Chloride Level 98 MEQ/L (98-107) 96 MEQ/L (98-107) 92 MEQ/L (98-107) Carbon Dioxide Level 29.1 MEQ/L (21.0-32.0) 29.8 MEQ/L (21.0-32.0) 34.3 MEQ/L (21.0-32.0) Anion Gap 8 MEQ/L (5-15) 9 MEQ/L (5-15) 6 MEQ/L (5-15) Estimat Glomerular Filtration Rate 87 ML/MIN (>89) 111 ML/MIN (>89) 88 ML/MIN (>89) Differential Total Cells Counted 100 Neutrophils % (Manual) 83 % (16-70) Band Neutrophils % 8 % (0-6) Lymphocytes % 2 % (9-44) Monocytes % 7 % (0-8) Neutrophils # (Manual) 7.3 TH/MM3 (1.8-7.7) Platelet Estimate LOW (NORMAL) Platelet Morphology Comment NORMAL (NORMAL) Ovalocytes 1+ (NORMAL) B-Type Natriuretic Peptide 438 PG/ML (0-100) Result Diagram: 04/15/172 04/15/17 044 Imaging Last 24 hours Impressions Chest X-Ray 04/15/17 0600 Signed Impressions: Service Date/Time: Thursday, April 15, 2017 02:18 - CONCLUSION: Slight improvement in diffuse bilateral interstitial process. Jessee Thornton MD Assessment and Plan Disease Oriented Problem List: (1) Sepsis (2) Lung cancer (3) Bilateral pneumonia (4) Severe protein-calorie malnutrition (5) Tobacco use (6) Sore throat Symptom Scale: (1) Shortness of breath 0-10 Scale: Unable to quantify Comment: Multifactorial. Patient has a history of lung cancer. Reports that he has been having persistent dyspnea with exertion at home, unable to ambulate for a long distance due to dyspnea. Now on 4 L nasal cannula. . (2) Decreased oral intake 0-10 Scale: Unable to quantify Comment: Patient reporting that he has had poor appetite. Swallow evaluation done- patient on a pureed diet with honey thick consistency and no straws. Appetite improving, consuming mostly 100% of his meals. . (3) Agitation 0-10 Scale: Unable to quantify Comment: Patient has a history of COPD, he has worsening respiratory status and was getting agitated. (4) Physical deconditioning 0-10 Scale: Unable to quantify Comment: Progressive. . Pertinent Non-Medical Issues Psychosocial:Patient was born and raised in [place]. He left [place] at the age of 20. Patient moved to [place] in 1975. Patient has a 2 years college degree in [employer]. 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 Patient was and twice. He never had children. Spiritual:No mosque affiliation Legal: Patient signed HCS form today. Ethical issues impacting care: None identified at this time. . Important Contacts HCS- (Long time friend-15 yrs) Kay Rizvi [phone] Alternate [facility]- Cousin- Dahiana Mayorga [phone] . Prognosis Mr Adams is a 61 years old male with a past medical history of lung cancer, COPD, hypertension, CAD and tobacco use. Patient was diagnosed with lung cancer in November, and he underwent 5 weeks of radiation and pending chemotherapy treatment, though patient`s states that he did have 1 treatment of chemotherapy. Patient currently resides in a transitional home. Patient was accompanied by his friends to the ER on 04/05/17 complaining of shortness on breath, worsening weakness, fatigue and poor appetite for 5 days prior to ER visit. Clinical course complicated with persistent shortness of breath, and Afib with RVR. Given ongoing comorbidities, patient remains at risk for complications, deterioration and decline. . Code Status: No Code Plan PLAN: Legal decision maker: Patient appears to have insight and judgement of his condition at this time and is able to make his own medical decisions. In the event that he is incapacitated, patient designated his long time friend Kay Rizvi as his healthcare surrogate and his cousin Dahiana Mayorga and his alternate HCS. Goals: 04/15/17- Remain aggressive short of no code. Patient looking forward to be discharged and following up with his outpatient oncologist and starting chemotherapy. CODE STATUS: DNR/DNI SYMPTOMS: * Shortness of breath: Multifactorial. Patient has a history of lung cancer. Reports that he has been having persistent dyspnea with exertion at home, unable to ambulate for a long distance due to dyspnea. Chest x-ray showed a trace right base infiltrate. Came in with c/o shortness of breath. Patient remains on a partial non-rebreather. Reports of easily desaturating when he takes of the mask. Patient on antibiotics. Sputum positive for Pseudomonas Aeruginosa. Patient on Lasix 40 mg IV push daily. Patient is on solumedrol 40mg q 6 hrs, Guaifenesin 600mg BID. Patient also on ipratropium bromide every 2hrs prn * Decreased PO Intake: Multifactorial. Patient states that he has to provide himself with food whilst living in a transitional home and unfortunately he does not like what they serve him. Patient also endorsing sore throat. Patient reporting that he has had poor appetite. Speech therapy consulted. Recommended puree diet and honey thick fluids with no straw. ST recommending speech therapy after discharge. Patient does not like puree diet. Consuming mostly 100% of most of his meals occasionally consumes 25 % of his lunch and dinner. * Agitation: Patient has a history of COPD, he has worsening respiratory status and was getting agitated. Precedex infusion titrated off. Currently calm- Resolved * Physical deconditioning : Multifactorial. Patient lives in a transitional home and he reports that he has to provide food for himself otherwise he does not like what they serve. Patient c/o of unable to ambulate for long distances due to increased shortness of breath. He continues to smoke cigarettes despite SOB. Patient has muscle wasting and reports that he has significantly lost weight since he was diagnosed with lung cancer. Patient also endorsing sore throat. Patient may benefit from physical therapy if goals do not change though it can be difficulty for him to fully participate due to dyspnea. 04/09/17 Total protein=5.9, Albumin=1.8. Palliative care will continue to follow the patient during hospital course as condition evolves, to assist patient/decision-maker with understanding of their medical conditions, weighing benefits/burdens of treatment options, for clarification of goals of treatment. Additionally will assist with any symptoms of palliative concern Attestation To help prompt me to consider important information that might be impacting today's encounter and assessment, information from prior notes written by myself or my colleagues may have been "brought forward" into today's note. My signature on this note, however, is an attestation that I personally performed the exam, history, and/or decision-making noted today, and, unless otherwise indicated, the interactions with patient, family, and staff as well as the review of records all occurred today. I also attest that the listed assessment and stated plan reflect my best clinical judgment today based on the combination of historical information, prior notes, and today's exam/ interactions. When time spent is documented, it refers only to time spent today by the signer, or if indicated, combined time spent today by collaborating physician/nurse practitioner. . Randa Tenorio Apr 15, 2017 16:12
[2017-04-15] MEDS: ACETAMINOPHEN/HYDROcodone 325 MG/5 MG TAB PO PRN (18:22)
[2017-04-15] MEDS: REMOVE OLD NICODERM (NICOTINE) PATCH T-DERMAL SCH (21:00)
[2017-04-16] VITALS (11 sets, daily range): BP systolic 144–163; BP diastolic 71–85; PULSE 75–89; RESP 16–18; TEMP 97.2–98.3; O2SAT 92–99
[2017-04-16] MEDS: CHLORHEXIDINE GLUCONATE 2 % 1 PACK (2 CLOTHS) TOP SCH (02:26)
[2017-04-16] MEDS: DILTIAZEM HCL 60 MG TAB PO SCH ×3 (05:11→20:30)
[2017-04-16] MEDS: INSULIN NovoLIN REGULAR SUPPLEMENTAL SCALE SQ SCH ×3 (05:12→17:04)
[2017-04-16] MEDS: RESP: IPRATROPIUM 0.5 MG/2.5 ML NEB NEB SCH ×4 (05:21→21:43)
[2017-04-16 08:21] LABS: AUTOMATED NEUTROPHIL # 8.4 TH/MM3 (1.8-7.7); BASOPHIL % 0.1 % (0.0-2.0); HEMATOCRIT 29.6 % (39.0-51.0); LYMPH % 1.2 % (9.0-44.0); LYMPHOCYTE # 0.1 TH/MM3 (1.0-4.8); MEAN CELL VOLUME 98.3 FL (80.0-100.0); MEAN CORPUSCULAR HEMOGLOBIN 33.4 PG (27.0-34.0); MONO % 6.7 % (0.0-8.0); PLATELET COUNT 157 TH/MM3 (150-450); RED BLOOD COUNT 3.01 MIL/MM3 (4.50-5.90); RED CELL DISTRIBUTION WIDTH 16.9 % (11.6-17.2); WHITE BLOOD COUNT 9.1 TH/MM3 (4.0-11.0)
[2017-04-16 08:22] LABS: HEMO FLAGS AUTO DIFF
[2017-04-16 08:49] LABS: BICARBONATE 33.7 MEQ/L (21.0-32.0); POTASSIUM 3.7 MEQ/L (3.5-5.1)
[2017-04-16 08:50] LABS: MAGNESIUM 1.9 MG/DL (1.5-2.5)
[2017-04-16] MEDS: CEFEPIME 2000 MG/NS 100 ML IV SCH ×2 (08:57)
[2017-04-16] MEDS: BUDESONIDE-FORMOTEROL 160/4.5 MCG INHALER INH SCH ×2 (09:00→20:30)
[2017-04-16] MEDS: SODIUM CHLORIDE 0.9% FLUSH 10 ML FLUSH IV FLUSH SCH ×2 (09:00→20:30)
[2017-04-16] MEDS: NYSTAT/DIPHENHY/LIDO MOUTHWASH (Adult) 120ML SWISH-SWAL SCH ×4 (09:01→20:29)
[2017-04-16] MEDS: NICOTINE 14 MG/24 HR PATCH T-DERMAL SCH (09:02)
[2017-04-16] MEDS: PANTOPRAZOLE SODIUM 40 MG VIAL IV PUSH SCH (09:03)
[2017-04-16] MEDS: methylPREDNISolone SOD SUCC 40 MG/1 ML VIAL IV PUSH SCH (09:06)
[2017-04-16] MEDS: FUROSEMIDE 40 MG/4 ML VIAL IV PUSH SCH (09:08)
[2017-04-16] MEDS: HEPARIN SODIUM - SQ 10,000 UNITS/ML VIAL SQ SCH ×2 (09:10→20:29)
[2017-04-16] MEDS: DOCUSATE SODIUM 50 MG/SENNA 8.6 MG TAB PO SCH ×2 (09:10→20:30)
[2017-04-16] MEDS: LISINOPRIL 5 MG TAB PO SCH (09:10)
[2017-04-16] MEDS: guaiFENesin E.R. 600 MG TAB PO SCH ×2 (09:11→20:30)
[2017-04-16] MEDS: ASPIRIN EC 81 MG TABEC PO SCH (09:11)
[2017-04-16] MEDS: METOPROLOL TARTRATE 50 MG TAB PO SCH ×2 (09:11→20:30)
[2017-04-16 09:17] LABS: BANDS 13 % (0-6); CORRECTED NUCLEATED RBC 1 /100 WBC (0-0); MYELOCYTES 1 % (0-0); PLATELET ESTIMATE SMEAR NORMAL (NORMAL); POLYS (SEG NEUTROPHILS) 85 % (16-70); TOXIC GRANULATION 1+ (NORMAL); WBC DIFF SAMPLE 100
[2017-04-16 09:18] LABS: ACANTHOCYTES OCC (NORMAL); OVALOCYTES 1+ (NORMAL); PLATELET MORPHOLOGY ENLARGED (NORMAL); SCAN/DIFF FINAL DIFF MANUAL
--- NOTE | 2017-04-16 11:57 | PD.ONC.PN ---
Subjective Subjective Remarks Afebrile overnight. Patient resting in room. Annoyed with noise of machines coming from the nurses station. Glad to be out of [facility]. Objective Data Date Time Temp Pulse Resp B/P (MAP) Pulse Ox O2 Delivery O2 Flow Rate FiO2 04/16/17 10:51 99 Nasal Cannula 2.00 04/16/17 08:00 98.3 76 16 147/71 (96) 96 04/16/17 05:25 95 Nasal Cannula 2.00 04/16/17 04:27 98.2 78 18 144/79 (100) 92 04/16/17 00:20 97.2 83 18 146/79 (101) 94 04/16/17 00:15 75 04/15/17 21:00 2 Nasal Cannula 04/15/17 20:50 97.7 74 18 149/79 (102) 96 04/15/17 20:10 75 04/15/17 15:18 98.5 94 18 179/96 (123) 97 04/15/17 14:00 81 04/15/17 12:00 85 04/15/17 12:00 98.7 85 20 160/83 (108) 95 04/16/17 04/16/17 04/16/17 07:00 15:00 23:00 Intake Total 200 ml Output Total 450 ml Balance -250 ml Result Diagram: 04/16/1772204/16/1723 Laboratory Results Laboratory Tests Test 04/16/17 07:23 White Blood Count 9.1 TH/MM3 Red Blood Count 3.01 MIL/MM3 Hemoglobin 10.0 GM/DL Hematocrit 29.6 % Mean Corpuscular Volume 98.3 FL Mean Corpuscular Hemoglobin 33.4 PG Mean Corpuscular Hemoglobin Concent 34.0 % Red Cell Distribution Width 16.9 % Platelet Count 157 TH/MM3 Mean Platelet Volume 9.4 FL Neutrophils (%) (Auto) 92.0 % Lymphocytes (%) (Auto) 1.2 % Monocytes (%) (Auto) 6.7 % Eosinophils (%) (Auto) 0.0 % Basophils (%) (Auto) 0.1 % Neutrophils # (Auto) 8.4 TH/MM3 Lymphocytes # (Auto) 0.1 TH/MM3 Monocytes # (Auto) 0.6 TH/MM3 Eosinophils # (Auto) 0.0 TH/MM3 Basophils # (Auto) 0.0 TH/MM3 CBC Comment AUTO DIFF Differential Total Cells Counted 100 Neutrophils % (Manual) 85 % Band Neutrophils % 13 % Monocytes % 1 % Neutrophils # (Manual) 9.0 TH/MM3 Myelocytes 1 % Nucleated Red Blood Cells 1 /100 WBC Differential Comment FINAL DIFF MANUAL Toxic Granulation 1+ Platelet Estimate NORMAL Platelet Morphology Comment ENLARGED Ovalocytes 1+ Acanthocytes OCC Blood Urea Nitrogen 26 MG/DL Creatinine 0.91 MG/DL Random Glucose 112 MG/DL Calcium Level 7.9 MG/DL Phosphorus Level 2.2 MG/DL Magnesium Level 1.9 MG/DL Sodium Level 133 MEQ/L Potassium Level 3.7 MEQ/L Chloride Level 94 MEQ/L Carbon Dioxide Level 33.7 MEQ/L Anion Gap 5 MEQ/L Estimat Glomerular Filtration Rate 84 ML/MIN Imaging Studies Last Impressions Chest X-Ray 04/15/17 0600 Signed Impressions: Service Date/Time: Saturday, April 15, 2017 02:18 - CONCLUSION: Slight improvement in diffuse bilateral interstitial process. Jessee Thornton MD CT Angiography 04/05/17 0000 Signed Impressions: Service Date/Time: Wednesday, April 05, 2017 20:05 - CONCLUSION: 1. No pulmonary embolus. 2. Patchy bilateral pneumonia as above. 3. Vague left hilar mass concerning for carcinoma. 4. Upper limits of normal to mildly enlarged mediastinal lymph nodes. 5. Coronary artery calcification. Dmitri Manuel MD Administered Medications Medications (Trade) Dose Ordered Sig/[place] Route PRN Reason Start Time Stop Time Status Last Admin Dose Admin Sodium Chloride (NS Flush) 2 ml BID IV FLUSH 04/06/17 09:00 04/16/17 09:00 Acetaminophen (Tylenol) 650 mg Q6H PRN PO FEVER/PAIN SCALE 1 TO 2 04/05/17 22:00 04/07/17 15:39 Acetaminophen/ Hydrocodone Bitart ([place] 5-325 Mg) 1 tab Q4H PRN PO PAIN SCALE 3 TO 5 04/05/17 22:00 04/15/17 18:22 Hydromorphone HCl (Dilaudid Pf Inj) 1 mg Q3H PRN IV PUSH Pain 6-10 04/05/17 22:00 04/09/17 23:02 Senna/Docusate Sodium ([place]-Colace) 1 tab BID PO 04/06/17 09:00 04/16/17 09:10 Guaifenesin (Mucinex Er) 600 mg BID PO 04/06/17 09:00 04/16/17 09:11 Heparin Sodium (Porcine) (Heparin Inj) 5,000 units Q12HR SQ 04/06/17 09:00 04/16/17 09:10 Multi-Ingredient Mouthwash/Gargle (Magic Mouthwash Adult Liq) 10 ml QID SWISH-SWAL 04/06/17 13:00 04/16/17 09:01 Pantoprazole Sodium (Protonix Inj) 40 mg DAILY IV PUSH 04/07/17 14:45 04/16/17 09:03 Ipratropium [place] (Atrovent Neb) 0.5 mg Q6HR NEB NEB 04/08/17 10:00 04/16/17 10:49 Chlorhexidine Gluconate (Chlorhexidine 2% Cloth) Taper DAILY@04 TOP 04/09/17 04:00 04/05/18 03:59 04/13/17 04:00 Morphine Sulfate (Morphine Inj) 4 mg Q4HR PRN IV PUSH breakthrough pain/ anxiety 04/08/17 06:30 04/12/17 10:59 Cefepime HCl 2000 mg/Sodium Chloride 100 ml @ 200 mls/hr Q8H IV 04/08/17 16:00 04/16/17 08:57 Diltiazem HCl (Cardizem) 60 mg Q8HR PO 04/08/17 22:00 04/16/17 05:11 Aspirin (Ecotrin Ec) 81 mg DAILY PO 04/10/17 09:00 04/16/17 09:11 Insulin Human Regular (NovoLIN R SUPPLEMENTAL SCALE) 1 Q6HR SQ 04/10/17 08:15 04/15/17 17:47 Methylprednisolone Sodium Succinate (SoluMEDROL INJ) 40 mg Q12H IV PUSH 04/11/17 09:00 04/16/17 09:06 Metoprolol Tartrate (Lopressor) 50 mg Q12HR PO 04/11/17 21:00 04/16/17 09:11 Metoprolol Tartrate (Lopressor Inj) 2.5 mg Q6H PRN IV PUSH SYS BP GREATER THAN 160 MMHG 04/11/17 17:30 04/11/17 18:13 Lisinopril (Prinivil) 5 mg DAILY PO 04/12/17 09:00 04/16/17 09:10 Furosemide (Lasix Inj) 40 mg DAILY IV PUSH 04/13/17 09:15 04/16/17 09:08 Budesonide/ Formoterol Fumarate (Symbicort 160-4.5 Mcg Inh) 1 puff Q12HR INH 04/14/17 21:00 04/16/17 09:00 Nicotine (Habitrol 14 Mg Patch.24 Hr) 1 patch DAILY T-DERMAL 04/15/17 14:15 04/16/17 09:02 Objective Remarks GENERAL: Middle aged male sitting up in bed in [facility]. SKIN: Warm and dry. HEAD: Normocephalic. EYES: No injection or drainage. NECK: Supple, trachea midline. CARDIOVASCULAR: +S1/S2 RESPIRATORY: Breath sounds equal bilaterally. No accessory muscle use. GASTROINTESTINAL: Abdomen soft, non-tender, nondistended. EXTREMITIES: No cyanosis, or edema. MUSCULOSKELETAL: Adequate muscle tone. NEUROLOGICAL: No obvious focal deficit. Awake, alert, and oriented x3. Assessment/Plan Problem List: (1) Lung cancer ICD Codes: C34.90 - Malignant neoplasm of unspecified part of unspecified bronchus or lung Plan: diagnosed with lung cancer in November of 2016 and completed 5 weeks of radiation therapy. Chemotherapy is pending. --established with Dr. Gentile or Suman who performs the radiation and a Dr. Stark who is located in [place] who will plan to start chemotherapy. Assessment 61-year-old male with a history of lung cancer, admitted with weakness and shortness of breath x 1 week. h/o hypertension, coronary artery disease, COPD and tobacco abuse Plan 1. follow up with Dr. Will and Dr. Stark (patient's radiation and medical oncologists, respectively) once discharge 2. oncology will follow peripherally. Attending Statement The exam, history, and the medical decision-making described in the above note were completed with the assistance of the mid-level provider. I reviewed and agree with the findings presented. I attest that I had a [id number] encounter with the patient on the same day, and personally performed and documented my assessment and findings in the medical record. 61 yoM with lung cancer admitted with pneumonia and COPD exacerbation. He has completed radiation therapy and will follow closely with primary oncologist on hospital discharge. Jada Calderon Apr 16, 2017 11:57 Anai Rocha MD Apr 17, 2017 02:35
--- NOTE | 2017-04-16 13:00 | HHI.IDPN ---
Subjective Subjective Remarks Patient is a 61-year-old male, presented to the hospital complaining of one- week history of generalized weakness, as well as worsening shortness of breath. Denies any significant cough or sputum production. He was diagnosed to have lung cancer November 2016, and has received about 5 weeks of radiation therapy. He has not had any nausea or vomiting. Denies any chest pain. His initial chest x -ray showed a trace right base infiltrate. Patient was started on antibiotics for pneumonia. Late last night jumpbasting facing baster today, patient had deterioration with increasing shortness of breath and increasing oxygen requirement. His chest x-ray showed worsening infiltrates on the right side. He was transferred to the intensive care unit for closer monitoring. Patient has been requiring BiPAP for oxygenation. Patient has had fevers up to 101. Blood cultures are negative so far. Urine for Legionella and pneumococcal antigen are negative. Infectious disease consultation has been requested to evaluate the patient with worsening pneumonia Notes reviewed Out of ICU Good sats on nasal O2 Temps ok States breathing is better Last CXR with improving infiltrates Sputum with PSAE BC negative Antibiotics Current Medications Cefepime IV Medications (Trade) Dose Ordered Sig/Benton Route Start Time Stop Time Status Last Admin (NS Flush) 2 ml UNSCH PRN IV FLUSH 04/05/17 22:00 (NS Flush) 2 ml BID IV FLUSH 04/06/17 09:00 04/16/17 09:00 (Zofran Inj) 4 mg Q6H PRN IVP 04/05/17 22:00 (Tylenol) 650 mg Q6H PRN PO 04/05/17 22:00 04/07/17 15:39 (Gaylord 5-325 Mg) 1 tab Q4H PRN PO 04/05/17 22:00 04/15/17 18:22 (Dilaudid Pf Inj) 1 mg Q3H PRN IV PUSH 04/05/17 22:00 04/09/17 23:02 (Nata-Colace) 1 tab BID PO 04/06/17 09:00 04/16/17 09:10 (Milk Of Magnesia Liq) 30 ml Q12H PRN PO 04/05/17 22:00 (Senokot) 17.2 mg Q12H PRN PO 04/05/17 22:00 (Dulcolax Supp) 10 mg DAILY PRN RECTAL 04/05/17 22:00 (Lactulose Liq) 30 ml DAILY PRN PO 04/05/17 22:00 (Mucinex Er) 600 mg BID PO 04/06/17 09:00 04/16/17 09:11 (Heparin Inj) 5,000 units Q12HR SQ 04/06/17 09:00 04/16/17 09:10 (Magic Mouthwash Adult Liq) 10 ml QID SWISH-SWAL 04/06/17 13:00 04/16/17 12:00 (Protonix Inj) 40 mg DAILY IV PUSH 04/07/17 14:45 04/16/17 09:03 (Atrovent Neb) 0.5 mg Q6HR NEB NEB 04/08/17 10:00 04/16/17 10:49 (Atrovent Neb) 0.5 mg Q2HR NEB PRN NEB 04/08/17 06:00 Miscellaneous Information 1 Q361D XX 04/08/17 06:15 (Chlorhexidine 2% Cloth) Taper DAILY@04 TOP 04/09/17 04:00 04/05/18 03:59 04/13/17 04:00 (Chlorhexidine 2% Cloth) 3 pack UNSCH PRN TOP 04/08/17 06:15 (Morphine Inj) 4 mg Q4HR PRN IV PUSH 04/08/17 06:30 04/12/17 10:59 Cefepime HCl 2000 mg/Sodium Chloride 100 ml @ 200 mls/hr Q8H IV 04/08/17 16:00 04/16/17 08:57 (Cardizem) 60 mg Q8HR PO 04/08/17 22:00 04/16/17 05:11 (Ecotrin Ec) 81 mg DAILY PO 04/10/17 09:00 04/16/17 09:11 (D50w (Vial) Inj) 50 ml UNSCH PRN IV PUSH 04/10/17 08:15 (Glucagon Inj) 1 mg UNSCH PRN OTHER 04/10/17 08:15 (NovoLIN R SUPPLEMENTAL SCALE) 1 Q6HR SQ 04/10/17 08:15 04/15/17 17:47 (SoluMEDROL INJ) 40 mg Q12H IV PUSH 04/11/17 09:00 04/16/17 09:06 (Lopressor) 50 mg Q12HR PO 04/11/17 21:00 04/16/17 09:11 (Lopressor Inj) 2.5 mg Q6H PRN IV PUSH 04/11/17 17:30 04/11/17 18:13 (Prinivil) 5 mg DAILY PO 04/12/17 09:00 04/16/17 09:10 (Lasix Inj) 40 mg DAILY IV PUSH 04/13/17 09:15 04/16/17 09:08 (Symbicort 160-4.5 Mcg Inh) 1 puff Q12HR INH 04/14/17 21:00 04/16/17 09:00 (Habitrol 14 Mg Patch.24 Hr) 1 patch DAILY T-DERMAL 04/15/17 14:15 04/16/17 09:02 Miscellaneous Information 1 HS T-DERMAL 04/15/17 21:00 Lines PIV Past Medical History Lung CA Hypertension CAD COPD Tobacco Abuse Past Surgical History Abdominal surgery Allergies: Coded Allergies: No Known Allergies (Verified Allergy, Unknown, 04/05/17) Objective . Vital Signs Date Time Temp Pulse Resp B/P (MAP) Pulse Ox O2 Delivery O2 Flow Rate FiO2 04/16/17 10:51 99 Nasal Cannula 2.00 04/16/17 08:00 98.3 76 16 147/71 (96) 96 04/16/17 05:25 95 Nasal Cannula 2.00 04/16/17 04:27 98.2 78 18 144/79 (100) 92 04/16/17 00:20 97.2 83 18 146/79 (101) 94 04/16/17 00:15 75 04/15/17 21:00 2 Nasal Cannula 04/15/17 20:50 97.7 74 18 149/79 (102) 96 04/15/17 20:10 75 04/15/17 15:18 98.5 94 18 179/96 (123) 97 04/15/17 14:00 81 . Laboratory Tests Test 04/15/17 04:42 04/16/17 07:23 White Blood Count 8.0 TH/MM3 9.1 TH/MM3 Red Blood Count 2.70 MIL/MM3 3.01 MIL/MM3 Hemoglobin 9.3 GM/DL 10.0 GM/DL Hematocrit 26.2 % 29.6 % Mean Corpuscular Volume 96.9 FL 98.3 FL Mean Corpuscular Hemoglobin 34.6 PG 33.4 PG Mean Corpuscular Hemoglobin Concent 35.7 % 34.0 % Red Cell Distribution Width 16.9 % 16.9 % Platelet Count 139 TH/MM3 157 TH/MM3 Mean Platelet Volume 9.9 FL 9.4 FL Neutrophils (%) (Auto) 93.0 % 92.0 % Lymphocytes (%) (Auto) 1.4 % 1.2 % Monocytes (%) (Auto) 5.5 % 6.7 % Eosinophils (%) (Auto) 0.0 % 0.0 % Basophils (%) (Auto) 0.1 % 0.1 % Neutrophils # (Auto) 7.5 TH/MM3 8.4 TH/MM3 Lymphocytes # (Auto) 0.1 TH/MM3 0.1 TH/MM3 Monocytes # (Auto) 0.4 TH/MM3 0.6 TH/MM3 Eosinophils # (Auto) 0.0 TH/MM3 0.0 TH/MM3 Basophils # (Auto) 0.0 TH/MM3 0.0 TH/MM3 CBC Comment AUTO DIFF AUTO DIFF Differential Total Cells Counted 100 100 Neutrophils % (Manual) 83 % 85 % Band Neutrophils % 8 % 13 % Lymphocytes % 2 % Monocytes % 7 % 1 % Neutrophils # (Manual) 7.3 TH/MM3 9.0 TH/MM3 Differential Comment FINAL DIFF MANUAL FINAL DIFF MANUAL Platelet Estimate LOW NORMAL Platelet Morphology Comment NORMAL ENLARGED Ovalocytes 1+ 1+ Myelocytes 1 % Nucleated Red Blood Cells 1 /100 WBC Toxic Granulation 1+ Acanthocytes OCC Laboratory Tests Test 04/15/17 04:42 04/16/17 07:23 Blood Urea Nitrogen 23 MG/DL 26 MG/DL Creatinine 0.88 MG/DL 0.91 MG/DL Random Glucose 119 MG/DL 112 MG/DL Calcium Level 7.9 MG/DL 7.9 MG/DL Sodium Level 132 MEQ/L 133 MEQ/L Potassium Level 3.6 MEQ/L 3.7 MEQ/L Chloride Level 92 MEQ/L 94 MEQ/L Carbon Dioxide Level 34.3 MEQ/L 33.7 MEQ/L Anion Gap 6 MEQ/L 5 MEQ/L Estimat Glomerular Filtration Rate 88 ML/MIN 84 ML/MIN B-Type Natriuretic Peptide 438 PG/ML Phosphorus Level 2.2 MG/DL Magnesium Level 1.9 MG/DL Imaging Chest X-Ray 04/10/17 0000 Signed Impressions: Service Date/Time: Monday, April 10, 2017 08:16 - CONCLUSION: 1. Bilateral predominantly interstitial process, right much worse than left. There may be slight interval improvement when compared to prior. 2. Fullness in the left perihilar distribution. Jaret Crouch MD Chest X-Ray 04/08/17 0000 Signed Impressions: Service Date/Time: Saturday, April 08, 2017 04:32 - CONCLUSION: New coarse infiltrate in the right lung most characteristic of pneumonia. Willy Pantoja MD CT Angiography 04/05/17 0000 Signed Impressions: Service Date/Time: Wednesday, April 05, 2017 20:05 - CONCLUSION: 1. No pulmonary embolus. 2. Patchy bilateral pneumonia as above. 3. Vague left hilar mass concerning for carcinoma. 4. Upper limits of normal to mildly enlarged mediastinal lymph nodes. 5. Coronary artery calcification. Dmitri Manuel MD Physical Exam GENERAL: awake and alert, NAD, on nasal O2 SKIN: Cool and dry. No generalized rash, no ecchymoses HEAD: Atraumatic. Normocephalic. No temporal wasting, or tenderness. EYES: Floris conjunctiva. No petechia or hemorrhage. Pupils equal, round and reactive to light. Extraocular movements full and intact. No scleral icterus. EARS, NOSE AND THROAT: Nose without bleeding or purulent nasal discharge. No sinus tenderness. Moist oral mucosa. CARDIOVASCULAR: Regular rate and rhythm. No murmurs, rubs or gallops heard RESPIRATORY: Coarse BS bilaterally, decreased on R side. No rales, wheezing or rhonchi ABDOMEN: Soft, non-tender, nondistended. Bowel sounds present and normoactive. No guarding. No rebound. No organomegaly. EXTREMITIES: No clubbing, cyanosis, or edema. No calf tenderness. Well perfused and warm. NEUROLOGICAL: Non-focal PSYCHIATRIC: Normal affect, calm and cooperative. LINE: No evidence of infection Assessment & Plan Remarks IMPRESSION Sepsis, due to PNA - clinicallyy better PNA, C/S PSAE - CXR no change - clinically better CAP, patient with newly Dx lung CA, S/P XRT - CXR stable COPD Respiratory failure RECOMMENDATION Chnage to po Levaquin Complete PNA Rx with Levaquin Clinically he is slowly improving with decreasing O2 requirement and some improvement of CXR Monitor progress Wean O2 as tolerated Audrey Zamora MD Apr 16, 2017 13:00
[2017-04-16] MEDS: LEVOFLOXACIN 750 MG TAB PO SCH (13:38)
--- NOTE | 2017-04-16 15:21 | HHI.PR ---
Subjective Remarks Follow-up pneumonia, COPD exacerbation. The patient states that his breathing is improving. He does still have a cough and feels short of breath at times. Denies chest pain, nausea, vomiting. Objective Vitals Vital Signs Date Time Temp Pulse Resp B/P (MAP) Pulse Ox O2 Delivery O2 Flow Rate FiO2 04/16/17 12:00 98.3 82 18 163/85 (111) 95 04/16/17 10:51 99 Nasal Cannula 2.00 04/16/17 08:00 98.3 76 16 147/71 (96) 96 04/16/17 05:25 95 Nasal Cannula 2.00 04/16/17 04:27 98.2 78 18 144/79 (100) 92 04/16/17 00:20 97.2 83 18 146/79 (101) 94 04/16/17 00:15 75 04/15/17 21:00 2 Nasal Cannula 04/15/17 20:50 97.7 74 18 149/79 (102) 96 04/15/17 20:10 75 I/O 04/15/17 04/15/17 04/15/17 04/16/17 04/16/17 04/16/17 07:00 15:00 23:00 07:00 15:00 23:00 Intake Total 180 ml 480 ml 200 ml Output Total 500 ml 1800 ml 250 ml 450 ml Balance -320 ml -1320 ml -250 ml -250 ml Intake Oral 180 ml 480 ml 200 ml Output Urine Total 500 ml 1800 ml 250 ml 450 ml # Bowel Movements 0 0 Result Diagram: 04/16/17 0723 04/16/17 0723 Imaging Last Impressions Chest X-Ray 04/15/17 0600 Signed Impressions: Service Date/Time: Saturday, April 15, 2017 02:18 - CONCLUSION: Slight improvement in diffuse bilateral interstitial process. Jessee Thornton MD CT Angiography 04/05/17 0000 Signed Impressions: Service Date/Time: Wednesday, April 05, 2017 20:05 - CONCLUSION: 1. No pulmonary embolus. 2. Patchy bilateral pneumonia as above. 3. Vague left hilar mass concerning for carcinoma. 4. Upper limits of normal to mildly enlarged mediastinal lymph nodes. 5. Coronary artery calcification. Dmitri Manuel MD Objective Remarks General: Elderly male in no acute distress. Heart: Regular rate and rhythm. No murmur. Lungs: Diffuse wheeze. Breathing is nonlabored. Abdomen: Soft, nontender, nondistended. Extremities: No lower extremity edema. Psych: Alert and oriented. Procedures None Urinary Catheter: No Vascular Central Line Catheter: No A/P Problem List: (1) Sepsis ICD Code: A41.9 - Sepsis, unspecified organism Status: Acute (2) PNA (pneumonia) ICD Code: J18.9 - Pneumonia, unspecified organism (3) OBED (acute kidney injury) ICD Code: N17.9 - Acute kidney failure, unspecified (4) Lung cancer ICD Code: C34.90 - Malignant neoplasm of unspecified part of unspecified bronchus or lung Assessment and Plan 1. Sepsis: Resolved. Source is pneumonia. 2. Bilateral pneumonia: Appreciate pulmonology, infectious disease recommendations. Continue antibiotics. Sputum culture growing Pseudomonas. 3. COPD exacerbation: Patient still having wheezing. Continue bronchodilators, steroids, Symbicort. Appreciate pulmonology recommendations. 4. Non-ST elevation CA: Appreciate cardiology evaluation. Continue Cardizem, Lopressor, lisinopril, aspirin. 5. GI prophylaxis: Pepcid. 6. DVT prophylaxis: SCDs, Lovenox. Problem Qualifiers (1) Sepsis: Qualified Codes: A41.9 - Sepsis, unspecified organism Jayce Fenton MD Apr 16, 2017 15:21
--- NOTE | 2017-04-16 20:01 | HHI.PR ---
Subjective Remarks Feels better. NO fever. Needs a Higher Nicotine patch. Sputum is clear. CXR better. Objective Vital Signs Date Time Temp Pulse Resp B/P (MAP) Pulse Ox O2 Delivery O2 Flow Rate FiO2 04/16/17 16:00 97.7 84 18 153/84 (107) 94 04/16/17 12:00 98.3 82 18 163/85 (111) 95 04/16/17 10:51 99 Nasal Cannula 2.00 04/16/17 08:00 82 04/16/17 08:00 Nasal Cannula 2.00 04/16/17 08:00 98.3 76 16 147/71 (96) 96 04/16/17 05:25 95 Nasal Cannula 2.00 04/16/17 04:27 98.2 78 18 144/79 (100) 92 04/16/17 00:20 97.2 83 18 146/79 (101) 94 04/16/17 00:15 75 04/15/17 21:00 2 Nasal Cannula 04/15/17 20:50 97.7 74 18 149/79 (102) 96 04/15/17 20:10 75 I/O 04/15/17 04/15/17 04/15/17 04/16/17 04/16/17 04/16/17 07:00 15:00 23:00 07:00 15:00 23:00 Intake Total 180 ml 480 ml 200 ml Output Total 500 ml 1800 ml 250 ml 450 ml Balance -320 ml -1320 ml -250 ml -250 ml Intake Oral 180 ml 480 ml 200 ml Output Urine Total 500 ml 1800 ml 250 ml 450 ml # Bowel Movements 0 0 Result Diagram: 04/16/1772204/16/1723 Objective Remarks GENERAL: This thinly built middle-aged white male who is alert, pale and in no distress. HEENT: Head normocephalic. Pupils are reactive. Sclerae are clear. Throat is clear. Nasal mucosa is clear. NECK: Supple. No bruits or thyroid enlargement or lymphadenopathy. CHEST: Increased AP diameter with occ wheezes. There are crackles over the right lung field as well as left base. CARDIOVASCULAR: Heart sounds are regular S1-S2. No murmur. ABDOMEN: Soft, non tender abdomen. Bowel sounds are active. Liver just felt below costal margin. EXTREMITIES: No lesions. No edema. No calf tenderness. Reflexes are 1+ with no gross motor deficits. NEUROLOGIC: Cranial nerves grossly intact. RECTAL: Exam is deferred. SKIN: No lesions. Assessment and Plan Assessment and Plan IMPRESSION 1. He has bilateral pneumonia with hypoxemia. 2. COPD with acute exacerbation and chronic bronchitis with emphysema. 3. Pulmonary edema. 4. Atrial fibrillation with arteriosclerotic heart disease. 5. History of hypertension. Plan : 1. Wean O2 to keep sat >92. 2. IS at bedside q3h 3 D/C solumedrol 4. Continue antibiotics.Per ID 5. Continue Lasix 40 mg PO daily. 6. Add prednisone 20 mg BID Michael Nicolas MD Apr 16, 2017 20:01
[2017-04-16] MEDS: REMOVE OLD NICODERM (NICOTINE) PATCH T-DERMAL SCH (20:30)
[2017-04-16] MEDS: predniSONE 20 MG TAB PO SCH (20:30)
[2017-04-16] MEDS ORDERED: predniSONE 20 MG TAB PO SCH (21:00)
[2017-04-17] VITALS (9 sets, daily range): BP systolic 145–164; BP diastolic 75–85; PULSE 76–98; RESP 17–20; TEMP 97.7–98.3; O2SAT 94–99
[2017-04-17] MEDS: CHLORHEXIDINE GLUCONATE 2 % 1 PACK (2 CLOTHS) TOP SCH (03:56)
[2017-04-17] MEDS: RESP: IPRATROPIUM 0.5 MG/2.5 ML NEB NEB SCH ×4 (04:13→22:42)
[2017-04-17] MEDS: INSULIN NovoLIN REGULAR SUPPLEMENTAL SCALE SQ SCH ×5 (06:00→23:09)
[2017-04-17] MEDS: DILTIAZEM HCL 60 MG TAB PO SCH ×3 (06:01→21:42)
[2017-04-17] MEDS: NICOTINE 14 MG/24 HR PATCH T-DERMAL SCH (08:19)
[2017-04-17] MEDS: BUDESONIDE-FORMOTEROL 160/4.5 MCG INHALER INH SCH ×2 (08:21→20:44)
[2017-04-17] MEDS: FUROSEMIDE 40 MG/4 ML VIAL IV PUSH SCH (08:21)
[2017-04-17] MEDS: SODIUM CHLORIDE 0.9% FLUSH 10 ML FLUSH IV FLUSH SCH ×2 (08:21→20:44)
[2017-04-17] MEDS: PANTOPRAZOLE SODIUM 40 MG VIAL IV PUSH SCH (08:22)
[2017-04-17] MEDS: DOCUSATE SODIUM 50 MG/SENNA 8.6 MG TAB PO SCH ×2 (08:25→20:43)
[2017-04-17] MEDS: NYSTAT/DIPHENHY/LIDO MOUTHWASH (Adult) 120ML SWISH-SWAL SCH ×4 (08:25→20:51)
[2017-04-17] MEDS: guaiFENesin E.R. 600 MG TAB PO SCH ×2 (08:25→20:43)
[2017-04-17] MEDS: predniSONE 20 MG TAB PO SCH ×2 (08:25→20:43)
[2017-04-17] MEDS: HEPARIN SODIUM - SQ 10,000 UNITS/ML VIAL SQ SCH ×2 (08:25→20:43)
[2017-04-17] MEDS: METOPROLOL TARTRATE 50 MG TAB PO SCH ×2 (08:25→20:43)
[2017-04-17] MEDS: ASPIRIN EC 81 MG TABEC PO SCH (08:25)
[2017-04-17] MEDS: LISINOPRIL 5 MG TAB PO SCH (08:25)
--- NOTE | 2017-04-17 09:14 | HHI.IDPN ---
Subjective Subjective Remarks Patient is a 61-year-old male, presented to the hospital complaining of one- week history of generalized weakness, as well as worsening shortness of breath. Denies any significant cough or sputum production. He was diagnosed to have lung cancer November 2016, and has received about 5 weeks of radiation therapy. He has not had any nausea or vomiting. Denies any chest pain. His initial chest x -ray showed a trace right base infiltrate. Patient was started on antibiotics for pneumonia. Late last night cat and dog bather today, patient had deterioration with increasing shortness of breath and increasing oxygen requirement. His chest x-ray showed worsening infiltrates on the right side. He was transferred to the intensive care unit for closer monitoring. Patient has been requiring BiPAP for oxygenation. Patient has had fevers up to 101. Blood cultures are negative so far. Urine for Legionella and pneumococcal antigen are negative. Infectious disease consultation has been requested to evaluate the patient with worsening pneumonia Notes reviewed Good sats on nasal O2 Temps ok States breathing is better Last CXR with improving infiltrates Sputum with PSAE BC negative Antibiotics Current Medications Levaquin po Medications (Trade) Dose Ordered Sig/Benton Route Start Time Stop Time Status Last Admin (NS Flush) 2 ml UNSCH PRN IV FLUSH 04/05/17 22:00 (NS Flush) 2 ml BID IV FLUSH 04/06/17 09:00 04/17/17 08:21 (Zofran Inj) 4 mg Q6H PRN IVP 04/05/17 22:00 (Tylenol) 650 mg Q6H PRN PO 04/05/17 22:00 04/07/17 15:39 (Heron 5-325 Mg) 1 tab Q4H PRN PO 04/05/17 22:00 04/15/17 18:22 (Dilaudid Pf Inj) 1 mg Q3H PRN IV PUSH 04/05/17 22:00 04/09/17 23:02 (Nata-Colace) 1 tab BID PO 04/06/17 09:00 04/17/17 08:25 (Milk Of Magnesia Liq) 30 ml Q12H PRN PO 04/05/17 22:00 (Senokot) 17.2 mg Q12H PRN PO 04/05/17 22:00 (Dulcolax Supp) 10 mg DAILY PRN RECTAL 04/05/17 22:00 (Lactulose Liq) 30 ml DAILY PRN PO 04/05/17 22:00 (Mucinex Er) 600 mg BID PO 04/06/17 09:00 04/17/17 08:25 (Heparin Inj) 5,000 units Q12HR SQ 04/06/17 09:00 04/17/17 08:25 (Magic Mouthwash Adult Liq) 10 ml QID SWISH-SWAL 04/06/17 13:00 04/17/17 08:25 (Protonix Inj) 40 mg DAILY IV PUSH 04/07/17 14:45 04/17/17 08:22 (Atrovent Neb) 0.5 mg Q6HR NEB NEB 04/08/17 10:00 04/17/17 04:13 (Atrovent Neb) 0.5 mg Q2HR NEB PRN NEB 04/08/17 06:00 Miscellaneous Information 1 Q361D XX 04/08/17 06:15 (Chlorhexidine 2% Cloth) Taper DAILY@04 TOP 04/09/17 04:00 04/05/18 03:59 04/13/17 04:00 (Chlorhexidine 2% Cloth) 3 pack UNSCH PRN TOP 04/08/17 06:15 (Morphine Inj) 4 mg Q4HR PRN IV PUSH 04/08/17 06:30 04/12/17 10:59 (Cardizem) 60 mg Q8HR PO 04/08/17 22:00 04/17/17 06:01 (Ecotrin Ec) 81 mg DAILY PO 04/10/17 09:00 04/17/17 08:25 (D50w (Vial) Inj) 50 ml UNSCH PRN IV PUSH 04/10/17 08:15 (Glucagon Inj) 1 mg UNSCH PRN OTHER 04/10/17 08:15 (NovoLIN R SUPPLEMENTAL SCALE) 1 Q6HR SQ 04/10/17 08:15 04/16/17 13:38 (Lopressor) 50 mg Q12HR PO 04/11/17 21:00 04/17/17 08:25 (Lopressor Inj) 2.5 mg Q6H PRN IV PUSH 04/11/17 17:30 04/11/17 18:13 (Prinivil) 5 mg DAILY PO 04/12/17 09:00 04/17/17 08:25 (Lasix Inj) 40 mg DAILY IV PUSH 04/13/17 09:15 04/17/17 08:21 (Symbicort 160-4.5 Mcg Inh) 1 puff Q12HR INH 04/14/17 21:00 04/17/17 08:21 (Habitrol 14 Mg Patch.24 Hr) 1 patch DAILY T-DERMAL 04/15/17 14:15 04/17/17 08:19 Miscellaneous Information 1 HS T-DERMAL 04/15/17 21:00 04/16/17 20:30 (Levaquin) 750 mg Q24H PO 04/16/17 14:00 04/16/17 13:38 (Deltasone) 20 mg BID PO 04/16/17 21:00 04/17/17 08:25 Lines PIV Past Medical History Lung CA Hypertension CAD COPD Tobacco Abuse Past Surgical History Abdominal surgery Allergies: Coded Allergies: No Known Allergies (Verified Allergy, Unknown, 04/05/17) Objective . Vital Signs Date Time Temp Pulse Resp B/P (MAP) Pulse Ox O2 Delivery O2 Flow Rate FiO2 04/17/17 08:20 98.2 76 18 151/75 (100) 95 04/17/17 05:45 84 150/78 (102) 04/17/17 00:00 98.3 82 20 152/77 (102) 94 04/16/17 23:43 86 04/16/17 21:44 94 Nasal Cannula 2.00 04/16/17 20:18 Nasal Cannula 2.00 04/16/17 20:00 97.4 82 18 150/82 (104) 96 04/16/17 20:00 89 04/16/17 16:00 97.7 84 18 153/84 (107) 94 04/16/17 12:00 98.3 82 18 163/85 (111) 95 04/16/17 10:51 99 Nasal Cannula 2.00 . Laboratory Tests Test 04/16/17 07:23 04/17/17 08:49 White Blood Count 9.1 TH/MM3 Red Blood Count 3.01 MIL/MM3 Hemoglobin 10.0 GM/DL Hematocrit 29.6 % Mean Corpuscular Volume 98.3 FL Mean Corpuscular Hemoglobin 33.4 PG Mean Corpuscular Hemoglobin Concent 34.0 % Red Cell Distribution Width 16.9 % Platelet Count 157 TH/MM3 Mean Platelet Volume 9.4 FL Neutrophils (%) (Auto) 92.0 % Lymphocytes (%) (Auto) 1.2 % Monocytes (%) (Auto) 6.7 % Eosinophils (%) (Auto) 0.0 % Basophils (%) (Auto) 0.1 % Neutrophils # (Auto) 8.4 TH/MM3 Lymphocytes # (Auto) 0.1 TH/MM3 Monocytes # (Auto) 0.6 TH/MM3 Eosinophils # (Auto) 0.0 TH/MM3 Basophils # (Auto) 0.0 TH/MM3 CBC Comment AUTO DIFF Differential Total Cells Counted 100 Neutrophils % (Manual) 85 % Band Neutrophils % 13 % Monocytes % 1 % Neutrophils # (Manual) 9.0 TH/MM3 Myelocytes 1 % Nucleated Red Blood Cells 1 /100 WBC Differential Comment FINAL DIFF MANUAL Toxic Granulation 1+ Platelet Estimate NORMAL Platelet Morphology Comment ENLARGED Ovalocytes 1+ Acanthocytes OCC Laboratory Tests Test 04/16/17 07:23 04/17/17 08:49 Blood Urea Nitrogen 26 MG/DL Creatinine 0.91 MG/DL Random Glucose 112 MG/DL Calcium Level 7.9 MG/DL Phosphorus Level 2.2 MG/DL Magnesium Level 1.9 MG/DL Sodium Level 133 MEQ/L Potassium Level 3.7 MEQ/L Chloride Level 94 MEQ/L Carbon Dioxide Level 33.7 MEQ/L Anion Gap 5 MEQ/L Estimat Glomerular Filtration Rate 84 ML/MIN Imaging Chest X-Ray 04/10/17 0000 Signed Impressions: Service Date/Time: Monday, April 10, 2017 08:16 - CONCLUSION: 1. Bilateral predominantly interstitial process, right much worse than left. There may be slight interval improvement when compared to prior. 2. Fullness in the left perihilar distribution. Jaret Crouch MD Chest X-Ray 04/08/17 0000 Signed Impressions: Service Date/Time: Saturday, April 08, 2017 04:32 - CONCLUSION: New coarse infiltrate in the right lung most characteristic of pneumonia. Willy Pantoja MD CT Angiography 04/05/17 0000 Signed Impressions: Service Date/Time: Wednesday, April 05, 2017 20:05 - CONCLUSION: 1. No pulmonary embolus. 2. Patchy bilateral pneumonia as above. 3. Vague left hilar mass concerning for carcinoma. 4. Upper limits of normal to mildly enlarged mediastinal lymph nodes. 5. Coronary artery calcification. Dmitri Manuel MD Physical Exam GENERAL: awake and alert, NAD, on nasal O2 SKIN: Cool and dry. No generalized rash, no ecchymoses HEAD: Atraumatic. Normocephalic. No temporal wasting, or tenderness. EYES: Shelley conjunctiva. No petechia or hemorrhage. Pupils equal, round and reactive to light. Extraocular movements full and intact. No scleral icterus. EARS, NOSE AND THROAT: Nose without bleeding or purulent nasal discharge. No sinus tenderness. Moist oral mucosa. CARDIOVASCULAR: Regular rate and rhythm. No murmurs, rubs or gallops heard RESPIRATORY: Coarse BS bilaterally, decreased on R side. No rales, wheezing or rhonchi ABDOMEN: Soft, non-tender, nondistended. Bowel sounds present and normoactive. No guarding. No rebound. No organomegaly. EXTREMITIES: No clubbing, cyanosis, or edema. No calf tenderness. Well perfused and warm. NEUROLOGICAL: Non-focal PSYCHIATRIC: Normal affect, calm and cooperative. LINE: No evidence of infection Assessment & Plan Remarks IMPRESSION Sepsis, due to PNA - clinically better PNA, C/S PSAE - CXR no change - clinically better CAP, patient with newly Dx lung CA, S/P XRT - CXR stable COPD Respiratory failure RECOMMENDATION Continue po Levaquin - end date ordered in [employer] Complete PNA Rx with Levaquin Patient clinically improving from ID standpoint Dr Zarate available if needed this weekend Audrey Zamora MD Apr 17, 2017 09:14
[2017-04-17 09:37] LABS: AUTOMATED NEUTROPHIL # 7.8 TH/MM3 (1.8-7.7); BASOPHIL % 0.2 % (0.0-2.0); HEMATOCRIT 28.8 % (39.0-51.0); HEMO FLAGS DIFF FINAL; LYMPH % 1.6 % (9.0-44.0); LYMPHOCYTE # 0.1 TH/MM3 (1.0-4.8); MEAN CELL VOLUME 98.4 FL (80.0-100.0); MEAN CORPUSCULAR HEMOGLOBIN 34.5 PG (27.0-34.0); MEAN CORPUSCULAR HGB CONC 35.1 % (32.0-36.0); MONO % 9.4 % (0.0-8.0); NEUT % 88.8 % (16.0-70.0); PLATELET COUNT 139 TH/MM3 (150-450); RED BLOOD COUNT 2.93 MIL/MM3 (4.50-5.90); RED CELL DISTRIBUTION WIDTH 17.3 % (11.6-17.2); WHITE BLOOD COUNT 8.8 TH/MM3 (4.0-11.0)
[2017-04-17 09:53] LABS: BICARBONATE 32.7 MEQ/L (21.0-32.0); POTASSIUM 3.3 MEQ/L (3.5-5.1)
[2017-04-17] MEDS: LEVOFLOXACIN 750 MG TAB PO SCH (12:50)
--- NOTE | 2017-04-17 13:48 | HHI.PR ---
Subjective Remarks Follow up pneumonia, COPD. Still with dyspnea, but getting better. No chest pain. Objective Vitals Vital Signs Date Time Temp Pulse Resp B/P (MAP) Pulse Ox O2 Delivery O2 Flow Rate FiO2 04/17/17 12:11 97.7 82 17 146/79 (101) 95 04/17/17 11:46 94 Nasal Cannula 2.00 04/17/17 08:20 98.2 76 18 151/75 (100) 95 04/17/17 08:00 Nasal Cannula 2.00 04/17/17 05:45 84 150/78 (102) 04/17/17 00:00 98.3 82 20 152/77 (102) 94 04/16/17 23:43 86 04/16/17 21:44 94 Nasal Cannula 2.00 04/16/17 20:18 Nasal Cannula 2.00 04/16/17 20:00 97.4 82 18 150/82 (104) 96 04/16/17 20:00 89 04/16/17 16:00 97.7 84 18 153/84 (107) 94 I/O 04/16/17 04/16/17 04/16/17 04/17/17 04/17/17 04/17/17 07:00 15:00 23:00 07:00 15:00 23:00 Intake Total 200 ml 220 ml 240 ml Output Total 450 ml 575 ml 850 ml Balance -250 ml -355 ml -610 ml Intake Oral 200 ml 120 ml 240 ml IV Total 100 ml Output Urine Total 450 ml 575 ml 850 ml # Bowel Movements 0 Result Diagram: 04/17/17 0849 04/17/17 0849 Imaging Last Impressions Chest X-Ray 04/15/17 0600 Signed Impressions: Service Date/Time: Saturday, April 15, 2017 02:18 - CONCLUSION: Slight improvement in diffuse bilateral interstitial process. Jessee Thornton MD CT Angiography 04/05/17 0000 Signed Impressions: Service Date/Time: Wednesday, April 05, 2017 20:05 - CONCLUSION: 1. No pulmonary embolus. 2. Patchy bilateral pneumonia as above. 3. Vague left hilar mass concerning for carcinoma. 4. Upper limits of normal to mildly enlarged mediastinal lymph nodes. 5. Coronary artery calcification. Dmitri Manuel MD Objective Remarks General: Elderly male in no acute distress. Heart: Regular rate and rhythm. No murmur. Lungs: Scattered wheeze. Breathing is nonlabored. Abdomen: Soft, nontender, nondistended. Extremities: No lower extremity edema. Psych: Alert and oriented. Procedures None Urinary Catheter: No Vascular Central Line Catheter: No A/P Problem List: (1) Sepsis ICD Code: A41.9 - Sepsis, unspecified organism Status: Acute (2) PNA (pneumonia) ICD Code: J18.9 - Pneumonia, unspecified organism (3) OBED (acute kidney injury) ICD Code: N17.9 - Acute kidney failure, unspecified (4) Lung cancer ICD Code: C34.90 - Malignant neoplasm of unspecified part of unspecified bronchus or lung Assessment and Plan 1. Sepsis: Resolved. Source is pneumonia. 2. Bilateral pneumonia: Appreciate pulmonology, infectious disease recommendations. Continue antibiotics. Sputum culture growing Pseudomonas. 3. COPD exacerbation: Improving. Patient still having wheezing. Continue bronchodilators, steroids, Symbicort. Appreciate pulmonology recommendations. Transitioned from Solu-Medrol to prednisone. 4. Non-ST elevation RI: Appreciate cardiology evaluation. Continue Cardizem, Lopressor, lisinopril, aspirin. 5. GI prophylaxis: Pepcid. 6. DVT prophylaxis: SCDs, Lovenox. 7. PT eval. Discharge Planning Patient may benefit from SNF/rehab, but instead wants to go home. PT eval pending to determine safety for discharge home with home health. Possible discharge next 1-2 days. Problem Qualifiers (1) Sepsis: Qualified Codes: A41.9 - Sepsis, unspecified organism Jayce Fenton MD Apr 17, 2017 13:48
[2017-04-17] MEDS ORDERED: POTASSIUM CHLORIDE 20 MEQ CONTROLLED RELEASE TAB PO ONE (14:30)
--- NOTE | 2017-04-17 16:12 | HHI.HCPN ---
Reason for visit a. To assist with evaluation and management of symptoms including: shortness of breath, decreased oral intake, physical deconditioning b. To assist medical decision maker(s) with: better understanding of current medical conditions; weighing benefits/burdens of medical treatment options; making medical treatment decisions. Subjective/Interval History Mr Adams is a 61 years old male with a past medical history of lung cancer, COPD, hypertension, CAD and tobacco use. Patient was diagnosed with lung cancer in November, and he underwent 5 weeks of radiation and pending chemotherapy treatment, though patient`s states that he did have 1 treatment of chemotherapy. Patient currently resides in a transitional home. Patient was accompanied by his friends to the ER on 04/05/17 complaining of shortness on breath, worsening weakness, fatigue and poor appetite for 5 days prior to ER visit. Patient seen and examined in his room 1434. Patient is sitting up in a recliner chair. Patient is alert, calm and oriented to self, place and situation. Patient denies shortness of breath, and pain. No signs of discomfort or distress noted. Patient now on O2 2L NC with O2 saturation in the mid 90s. Patient has a lunch tray in front of him and complaining that some of the food he ordered was not sent. Patient is now on a regular diet and consuming 75-100% of his breakfast, 100% of his lunch and 25-100% of his dinner. Patient`s las bowel movement was on 04/08/17. Patient on Senna/Docusate 1 tab BID. Patient has PRN Milk of magnesia, Senokot, Dulcolax suppository and lactulose and has not received any prn doses. Patient is afebrile. HR 70s-80s, SBP 140s-150s. Laboratory workup revealing WBC 8.8, hemoglobin 10.1, hematocrit 28.8, platelet count 139, sodium 130, potassium 3.3, BUN/creatinine 25/0.90. No recent imaging. Pulmonology and ID following. Patient mentioned that he talked to someone at his oncologist`s office and he rescheduled his appointment. He is looking forward to being discharged and getting a couple more radiation treatments then chemotherapy. Patient intends to go back to [facility](Transitional housing) where he resides after discharge from the hospital. . Family/friend interactions No family at bedside. . Advance Directives Health Care Surrogate: Copy in medical record Advance Directive Specifics Date completed: 04/08/2017- [facility] . Health Care Surrogate(s): HCS- (Long time friend-15 yrs) Kay Rizvi [phone] Alternate [facility]- Cousin- Dahiana Mayorga [phone] . Significant change in goals: No changes in goals. . Objective Vital Signs Date Time Temp Pulse Resp B/P (MAP) Pulse Ox O2 Delivery O2 Flow Rate FiO2 04/17/17 12:11 97.7 82 17 146/79 (101) 95 04/17/17 11:46 94 Nasal Cannula 2.00 04/17/17 08:20 98.2 76 18 151/75 (100) 95 04/17/17 08:00 Nasal Cannula 2.00 04/17/17 08:00 78 04/17/17 05:45 84 150/78 (102) 04/17/17 00:00 98.3 82 20 152/77 (102) 94 04/16/17 23:43 86 04/16/17 21:44 94 Nasal Cannula 2.00 04/16/17 20:18 Nasal Cannula 2.00 04/16/17 20:00 97.4 82 18 150/82 (104) 96 04/16/17 20:00 89 04/16/17 16:00 97.7 84 18 153/84 (107) 94 Intake & Output 04/17/17 04/17/17 07:00 19:00 Intake Total 220 ml 240 ml Output Total 575 ml 850 ml Balance -355 ml -610 ml Intake Oral 120 ml 240 ml IV Total 100 ml Output Urine Total 575 ml 850 ml Physical Exam CONSTITUTIONAL/GENERAL: This is an ill-looking patient, who looks older than stated age, in no apparent distress. TUBES/LINES/DRAINS: Nasal cannula,SCDs, PIVs SKIN: Pale. Ecchymoses on upper extremities. No wounds seen anteriorly. Skin temperature appropriate. Not diaphoretic. HEAD: Atraumatic. Normocephalic. EYES: Pupils equal and round and reactive. Extraocular motions intact. No injection or drainage. Fundi not examined. ENT: Hearing grossly normal. Nose without bleeding or purulent drainage. Moist oral mucosa. Poor dentition NECK: Trachea midline. Supple, nontender. CARDIOVASCULAR: Irregular rate and rhythm without murmurs, gallops, or rubs. No JVD. Peripheral pulses symmetric. RESPIRATORY/CHEST: Symmetric, unlabored respirations. Clear to auscultation. Occasional unproductive cough. Breath sounds equal bilaterally. No wheezes. GASTROINTESTINAL: Abdomen soft, non-tender, nondistended. No guarding. Bowel sounds present. GENITOURINARY: Without palpable bladder distension. MUSCULOSKELETAL: Extremities without clubbing, cyanosis, or edema. No joint tenderness or effusion noted. No calf tenderness. No mottling or clubbing. NEUROLOGICAL: Awake, alert and oriented to self, place and situation. Motor and sensory grossly within normal limits. Follows commands. Moves all extremities. PSYCHIATRIC: Calm. No obvious anxiety/depression. no apparent hallucinations or other psychotic thought process. . Diagnostic Tests Laboratory Laboratory Tests Test 04/15/17 04:42 04/16/17 07:23 04/17/17 08:49 White Blood Count 8.0 TH/MM3 (4.0-11.0) 9.1 TH/MM3 (4.0-11.0) 8.8 TH/MM3 (4.0-11.0) Red Blood Count 2.70 MIL/MM3 (4.50-5.90) 3.01 MIL/MM3 (4.50-5.90) 2.93 MIL/MM3 (4.50-5.90) Hemoglobin 9.3 GM/DL (13.0-17.0) 10.0 GM/DL (13.0-17.0) 10.1 GM/DL (13.0-17.0) Hematocrit 26.2 % (39.0-51.0) 29.6 % (39.0-51.0) 28.8 % (39.0-51.0) Mean Corpuscular Volume 96.9 FL (80.0-100.0) 98.3 FL (80.0-100.0) 98.4 FL (80.0-100.0) Mean Corpuscular Hemoglobin 34.6 PG (27.0-34.0) 33.4 PG (27.0-34.0) 34.5 PG (27.0-34.0) Mean Corpuscular Hemoglobin Concent 35.7 % (32.0-36.0) 34.0 % (32.0-36.0) 35.1 % (32.0-36.0) Red Cell Distribution Width 16.9 % (11.6-17.2) 16.9 % (11.6-17.2) 17.3 % (11.6-17.2) Platelet Count 139 TH/MM3 (150-450) 157 TH/MM3 (150-450) 139 TH/MM3 (150-450) Mean Platelet Volume 9.9 FL (7.0-11.0) 9.4 FL (7.0-11.0) 9.7 FL (7.0-11.0) Neutrophils (%) (Auto) 93.0 % (16.0-70.0) 92.0 % (16.0-70.0) 88.8 % (16.0-70.0) Lymphocytes (%) (Auto) 1.4 % (9.0-44.0) 1.2 % (9.0-44.0) 1.6 % (9.0-44.0) Monocytes (%) (Auto) 5.5 % (0.0-8.0) 6.7 % (0.0-8.0) 9.4 % (0.0-8.0) Eosinophils (%) (Auto) 0.0 % (0.0-4.0) 0.0 % (0.0-4.0) 0.0 % (0.0-4.0) Basophils (%) (Auto) 0.1 % (0.0-2.0) 0.1 % (0.0-2.0) 0.2 % (0.0-2.0) Neutrophils # (Auto) 7.5 TH/MM3 (1.8-7.7) 8.4 TH/MM3 (1.8-7.7) 7.8 TH/MM3 (1.8-7.7) Lymphocytes # (Auto) 0.1 TH/MM3 (1.0-4.8) 0.1 TH/MM3 (1.0-4.8) 0.1 TH/MM3 (1.0-4.8) Monocytes # (Auto) 0.4 TH/MM3 (0-0.9) 0.6 TH/MM3 (0-0.9) 0.8 TH/MM3 (0-0.9) Eosinophils # (Auto) 0.0 TH/MM3 (0-0.4) 0.0 TH/MM3 (0-0.4) 0.0 TH/MM3 (0-0.4) Basophils # (Auto) 0.0 TH/MM3 (0-0.2) 0.0 TH/MM3 (0-0.2) 0.0 TH/MM3 (0-0.2) CBC Comment AUTO DIFF AUTO DIFF DIFF FINAL Differential Total Cells Counted 100 100 Neutrophils % (Manual) 83 % (16-70) 85 % (16-70) Band Neutrophils % 8 % (0-6) 13 % (0-6) Lymphocytes % 2 % (9-44) Monocytes % 7 % (0-8) 1 % (0-8) Neutrophils # (Manual) 7.3 TH/MM3 (1.8-7.7) 9.0 TH/MM3 (1.8-7.7) Differential Comment FINAL DIFF MANUAL FINAL DIFF MANUAL Platelet Estimate LOW (NORMAL) NORMAL (NORMAL) Platelet Morphology Comment NORMAL (NORMAL) ENLARGED (NORMAL) Ovalocytes 1+ (NORMAL) 1+ (NORMAL) Blood Urea Nitrogen 23 MG/DL (7-18) 26 MG/DL (7-18) 25 MG/DL (7-18) Creatinine 0.88 MG/DL (0.60-1.30) 0.91 MG/DL (0.60-1.30) 0.94 MG/DL (0.60-1.30) Random Glucose 119 MG/DL (74-106) 112 MG/DL (74-106) 123 MG/DL (74-106) Calcium Level 7.9 MG/DL (8.5-10.1) 7.9 MG/DL (8.5-10.1) 8.0 MG/DL (8.5-10.1) Sodium Level 132 MEQ/L (136-145) 133 MEQ/L (136-145) 130 MEQ/L (136-145) Potassium Level 3.6 MEQ/L (3.5-5.1) 3.7 MEQ/L (3.5-5.1) 3.3 MEQ/L (3.5-5.1) Chloride Level 92 MEQ/L (98-107) 94 MEQ/L (98-107) 89 MEQ/L (98-107) Carbon Dioxide Level 34.3 MEQ/L (21.0-32.0) 33.7 MEQ/L (21.0-32.0) 32.7 MEQ/L (21.0-32.0) Anion Gap 6 MEQ/L (5-15) 5 MEQ/L (5-15) 8 MEQ/L (5-15) Estimat Glomerular Filtration Rate 88 ML/MIN (>89) 84 ML/MIN (>89) 81 ML/MIN (>89) B-Type Natriuretic Peptide 438 PG/ML (0-100) Myelocytes 1 % (0-0) Nucleated Red Blood Cells 1 /100 WBC (0-0) Toxic Granulation 1+ (NORMAL) Acanthocytes OCC (NORMAL) Phosphorus Level 2.2 MG/DL (2.5-4.9) Magnesium Level 1.9 MG/DL (1.5-2.5) Result Diagram: 04/17/17 0849 04/17/17 0849 Assessment and Plan Disease Oriented Problem List: (1) Sepsis (2) Lung cancer (3) Bilateral pneumonia (4) Severe protein-calorie malnutrition (5) Tobacco use (6) Sore throat Symptom Scale: (1) Shortness of breath 0-10 Scale: Unable to quantify Comment: Multifactorial. Patient has a history of lung cancer. Reports that he has been having persistent dyspnea with exertion at home, unable to ambulate for a long distance due to dyspnea. Now on 2L nasal cannula. . (2) Decreased oral intake 0-10 Scale: Unable to quantify Comment: Patient reporting that he has had poor appetite. Swallow evaluation done- patient on a pureed diet with honey thick consistency and no straws. Appetite improving, still picky on what he wants to eat. . (3) Agitation 0-10 Scale: Unable to quantify Comment: Patient has a history of COPD, he has worsening respiratory status and was getting agitated. (4) Physical deconditioning 0-10 Scale: Unable to quantify Comment: Progressive. . Pertinent Non-Medical Issues Psychosocial:Patient was born and raised in [place]. He left [place] at the age of 20. Patient moved to [place] in 1975. Patient has a 2 years college degree in [employer]. 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 Patient was and twice. He never had children. Spiritual:No muslim affiliation Legal: Patient signed HCS form today. Ethical issues impacting care: None identified at this time. . Important Contacts HCS- (Long time friend-15 yrs) Kay Rizvi [phone] Alternate HCS- Cousin- Dahiana Mayorga [phone] . Prognosis Mr Adams is a 61 years old male with a past medical history of lung cancer, COPD, hypertension, CAD and tobacco use. Patient was diagnosed with lung cancer in November, and he underwent 5 weeks of radiation and pending chemotherapy treatment, though patient`s states that he did have 1 treatment of chemotherapy. Patient currently resides in a transitional home. Patient was accompanied by his friends to the ER on 04/05/17 complaining of shortness on breath, worsening weakness, fatigue and poor appetite for 5 days prior to ER visit. Clinical course complicated with persistent shortness of breath, and Afib with RVR. Given ongoing comorbidities, patient remains at risk for complications, deterioration and decline. . Code Status: No Code Plan PLAN: Legal decision maker: Patient appears to have insight and judgement of his condition at this time and is able to make his own medical decisions. In the event that he is incapacitated, patient designated his long time friend Kay Rizvi as his healthcare surrogate and his cousin Dahiana Mayorga and his alternate HCS. Goals: 04/17/17- Remain aggressive short of no code. Patient mentioned that he talked to someone at his oncologist`s office and he rescheduled his appointment. He is looking forward to being discharged and getting a couple more radiation treatments then chemotherapy. Patient intends to go back to [facility](Transitional housing) where he resides after discharge from the hospital. CODE STATUS: DNR/DNI SYMPTOMS: * Shortness of breath: Multifactorial. Patient has a history of lung cancer. Reports that he has been having persistent dyspnea with exertion at home, unable to ambulate for a long distance due to dyspnea. Chest x-ray showed a trace right base infiltrate. Came in with c/o shortness of breath. Patient remains on a partial non-rebreather. Reports of easily desaturating when he takes of the mask. Patient on antibiotics. Sputum positive for Pseudomonas Aeruginosa. Patient on Lasix 40 mg IV push daily. Patient is on solumedrol 20mg q 12hrs, Guaifenesin 600mg BID. Patient also on ipratropium bromide every 2hrs prn and on Symbicort inhaler q 12hrs. * Decreased PO Intake: Multifactorial. Patient states that he has to provide himself with food whilst living in a transitional home and unfortunately he does not like what they serve him. Patient also endorsing sore throat. Patient reporting that he has had poor appetite. Speech therapy following. ST recommending speech therapy after discharge. Patient is now on a regular diet and consuming 75-100% of his breakfast, 100% of his lunch and 25-100% of his dinner. Patient`s las bowel movement was on 04/08/17. Patient on Senna/Docusate 1 tab BID. Patient has PRN Milk of magnesia, Senokot, Dulcolax suppository and lactulose and has not received any prn doses. * Agitation: Patient has a history of COPD, he has worsening respiratory status and was getting agitated. Precedex infusion titrated off. Currently calm- Resolved * Physical deconditioning : Multifactorial. Patient lives in a transitional home and he reports that he has to provide food for himself otherwise he does not like what they serve. Patient c/o of unable to ambulate for long distances due to increased shortness of breath. He continues to smoke cigarettes despite SOB. Patient has muscle wasting and reports that he has significantly lost weight since he was diagnosed with lung cancer. Patient also endorsing sore throat. Patient may benefit from physical therapy if goals do not change though it can be difficulty for him to fully participate due to dyspnea. 04/09/17 Total protein=5.9, Albumin=1.8. Palliative care will continue to follow the patient during hospital course as condition evolves, to assist patient/decision-maker with understanding of their medical conditions, weighing benefits/burdens of treatment options, for clarification of goals of treatment. Additionally will assist with any symptoms of palliative concern Attestation To help prompt me to consider important information that might be impacting today's encounter and assessment, information from prior notes written by myself or my colleagues may have been "brought forward" into today's note. My signature on this note, however, is an attestation that I personally performed the exam, history, and/or decision-making noted today, and, unless otherwise indicated, the interactions with patient, family, and staff as well as the review of records all occurred today. I also attest that the listed assessment and stated plan reflect my best clinical judgment today based on the combination of historical information, prior notes, and today's exam/ interactions. When time spent is documented, it refers only to time spent today by the signer, or if indicated, combined time spent today by collaborating physician/nurse practitioner. Randa Tenorio Apr 17, 2017 16:12
--- NOTE | 2017-04-17 20:24 | HHI.PR ---
Subjective Remarks No new Complaints. NO fever. On O2 at 2 L Sputum is clear. CXR better. Objective Vital Signs Date Time Temp Pulse Resp B/P (MAP) Pulse Ox O2 Delivery O2 Flow Rate FiO2 04/17/17 16:55 97.7 91 17 164/85 (111) 99 04/17/17 12:11 97.7 82 17 146/79 (101) 95 04/17/17 11:46 94 Nasal Cannula 2.00 04/17/17 08:20 98.2 76 18 151/75 (100) 95 04/17/17 08:00 Nasal Cannula 2.00 04/17/17 08:00 78 04/17/17 05:45 84 150/78 (102) 04/17/17 00:00 98.3 82 20 152/77 (102) 94 04/16/17 23:43 86 04/16/17 21:44 94 Nasal Cannula 2.00 I/O 04/16/17 04/16/17 04/16/17 04/17/17 04/17/17 04/17/17 06:59 14:59 22:59 06:59 14:59 22:59 Intake Total 200 ml 220 ml 240 ml Output Total 450 ml 575 ml 850 ml Balance -250 ml -355 ml -610 ml Intake Oral 200 ml 120 ml 240 ml IV Total 100 ml Output Urine Total 450 ml 575 ml 850 ml # Bowel Movements 0 1 Result Diagram: 04/17/17 0849 04/17/17 0849 Objective Remarks GENERAL: This thinly built middle-aged white male who is alert, pale and in no distress. HEENT: Head normocephalic. Pupils are reactive. Sclerae are clear. Throat is clear. Nasal mucosa is clear. NECK: Supple. No bruits or thyroid enlargement or lymphadenopathy. CHEST: Increased AP diameter .There are crackles over the right lung field as well as left base. CARDIOVASCULAR: Heart sounds are regular S1-S2. No murmur. ABDOMEN: Soft, non tender abdomen. Bowel sounds are active. Liver just felt below costal margin. EXTREMITIES: No lesions. No edema. No calf tenderness. Reflexes are 1+ with no gross motor deficits. NEUROLOGIC: Cranial nerves grossly intact. RECTAL: Exam is deferred. SKIN: No lesions. Assessment and Plan Assessment and Plan IMPRESSION 1. He has bilateral pneumonia with hypoxemia. 2. COPD with acute exacerbation and chronic bronchitis with emphysema. 3. Pulmonary edema. 4. Atrial fibrillation with arteriosclerotic heart disease. 5. History of hypertension. Plan : 1. Wean O2 to keep sat >92. 2. Add Prednisone 20 mg bid 3. D/C solumedrol 4. Continue antibiotics.Levaquin 5. Continue Lasix 40 mg IV daily. 6. CXR in am 7. Nicotine patch 14 mg / 24 HR Michael Nicolas MD Apr 17, 2017 20:24
[2017-04-17] MEDS: REMOVE OLD NICODERM (NICOTINE) PATCH T-DERMAL SCH (20:45)
[2017-04-18] VITALS (11 sets, daily range): BP systolic 140–161; BP diastolic 76–83; PULSE 71–95; RESP 16–20; TEMP 97.8–98.7; O2SAT 93–99
[2017-04-18] MEDS: CHLORHEXIDINE GLUCONATE 2 % 1 PACK (2 CLOTHS) TOP SCH (04:00)
[2017-04-18] MEDS: RESP: IPRATROPIUM 0.5 MG/2.5 ML NEB NEB SCH ×4 (05:25→21:45)
--- NOTE | 2017-04-18 05:36 | RADRPT ---
EXAM DATE/TIME: 04/18/2017 04:32 [facility] COMPARISON: CHEST SINGLE AP, April 15, 2017, 2:18. INDICATIONS : Edema. MEDICAL HISTORY : Carcinoma, lung. Chronic obstructive pulmonary disease. Hypertension. SURGICAL HISTORY : None. ENCOUNTER: Subsequent ACUITY: 1 week PAIN SCORE: Non-responsive. LOCATION: Bilateral FINDINGS: Single AP view of the chest. Mild patchy opacity in the right midlung zone similar to the prior study . Decrease in more diffuse interstitial opacity. Cardiomediastinal silhouette within normal limits. N o evidence of pleural effusion or pneumothorax. CONCLUSION: Resolution of bilateral interstitial opacity. Mild residual right midlung zone opacity li kai represent atelectasis or scarring. Artemio Spencer MD on April 18, 2017 at 5:33 Board Certified Radiologist. This report was verified electronically.
[2017-04-18] MEDS: DILTIAZEM HCL 60 MG TAB PO SCH ×3 (06:11→20:13)
[2017-04-18] MEDS: INSULIN NovoLIN REGULAR SUPPLEMENTAL SCALE SQ SCH (06:11)
[2017-04-18] MEDS ORDERED: LEVA750T9 PO (08:43)
[2017-04-18] MEDS ORDERED: PRED20 PO (08:52)
[2017-04-18] MEDS ORDERED: METO-309 PO (08:52)
[2017-04-18] MEDS ORDERED: MAGICADU2 SWISH-SWAL (08:52)
[2017-04-18] MEDS ORDERED: CARD240C6 PO (08:52)
[2017-04-18] MEDS ORDERED: LISI-519 PO (08:52)
[2017-04-18] MEDS ORDERED: Budeson-Formot 160-4.5 Mcg Inh INH (08:52)
[2017-04-18] MEDS ORDERED: FURO20TA PO (08:52)
--- NOTE | 2017-04-18 08:54 | HHI.FF ---
Face to Face Verification Diagnosis: (1) Bilateral pneumonia (2) Lung cancer Physical Therapy Order: Evaluate and Treat, Improve ambulation, Strength and gait training Home Health Nursing Order: Medical education Oxygen administration education Medication education-adverse effect Nursing assessment with vital signs I have seen patient Robert Adams on 04/18/17. My clinical findings support the need for the requested home health care services because: Ltd mobility - disease progression Patient has SOB I certify that my clinical findings support that this patient is homebound because: Hx COPD- exertion dyspnea/weakness Ranjan Ho MD Apr 18, 2017 08:54
--- NOTE | 2017-04-18 08:54 | HHI.DCPOC ---
Discharge Care Plan Diagnosis: (1) PNA (pneumonia) Your Health Problems Are: Difficulty with ADL Exercise Tolerance Goals to Promote Your Health * To prevent worsening of your condition and complications * To maintain your health at the optimal level Directions to Meet Your Goals Take your medications as prescribed Follow your dietary instruction Follow activity as directed Keep your appointments as scheduled Take your immunizations and boosters as scheduled If your symptoms worsen call your PCP, if no PCP go to Urgent Care Center or Emergency Room Smoking is Dangerous to Your Health. Avoid second hand smoke Call the 24-hour hour crisis hotline for domestic abuse at Ranjan Ho MD Apr 18, 2017 08:54
[2017-04-18] MEDS ORDERED: WALKER WHEELS/F1 MIS (08:57)
[2017-04-18] MEDS ORDERED: OXYGENDME NAS.CANULA (08:57)
[2017-04-18] MEDS: guaiFENesin E.R. 600 MG TAB PO SCH ×2 (10:32→20:13)
[2017-04-18] MEDS: NICOTINE 14 MG/24 HR PATCH T-DERMAL SCH (10:32)
[2017-04-18] MEDS: NYSTAT/DIPHENHY/LIDO MOUTHWASH (Adult) 120ML SWISH-SWAL SCH ×4 (10:32→21:36)
[2017-04-18] MEDS: LISINOPRIL 5 MG TAB PO SCH (10:33)
[2017-04-18] MEDS: HEPARIN SODIUM - SQ 10,000 UNITS/ML VIAL SQ SCH ×2 (10:33→20:13)
[2017-04-18] MEDS: FUROSEMIDE 40 MG/4 ML VIAL IV PUSH SCH (10:33)
[2017-04-18] MEDS: METOPROLOL TARTRATE 50 MG TAB PO SCH ×2 (10:34→20:13)
[2017-04-18] MEDS: ASPIRIN EC 81 MG TABEC PO SCH (10:34)
[2017-04-18] MEDS: SODIUM CHLORIDE 0.9% FLUSH 10 ML FLUSH IV FLUSH SCH ×2 (10:34→20:13)
[2017-04-18] MEDS: PANTOPRAZOLE SODIUM 40 MG VIAL IV PUSH SCH (10:34)
[2017-04-18] MEDS: DOCUSATE SODIUM 50 MG/SENNA 8.6 MG TAB PO SCH ×2 (10:34→20:13)
[2017-04-18] MEDS: predniSONE 20 MG TAB PO SCH ×2 (10:34→20:13)
[2017-04-18] MEDS: BUDESONIDE-FORMOTEROL 160/4.5 MCG INHALER INH SCH ×2 (10:35→20:14)
[2017-04-18 11:29] LABS: BICARBONATE 31.2 MEQ/L (21.0-32.0); MAGNESIUM 1.6 MG/DL (1.5-2.5)
--- NOTE | 2017-04-18 12:33 | HHI.PR ---
Subjective Remarks Follow-up COPD and pneumonia. He is feeling better. He now agrees to be discharged to SNF. Discussed with RN and case management. Objective Vitals Vital Signs Date Time Temp Pulse Resp B/P (MAP) Pulse Ox O2 Delivery O2 Flow Rate FiO2 04/18/17 10:06 96 Nasal Cannula 2.00 04/18/17 08:00 97.8 92 20 161/80 (107) 99 04/18/17 04:00 89 04/18/17 04:00 98.4 84 16 154/80 (104) 97 04/18/17 00:25 93 Room Air 04/18/17 00:25 95 04/18/17 00:00 98.5 87 20 152/83 (106) 93 04/17/17 22:46 96 Nasal Cannula 2.00 04/17/17 20:00 Nasal Cannula 2.00 04/17/17 20:00 98 04/17/17 20:00 98.2 93 20 145/79 (101) 97 04/17/17 16:55 97.7 91 17 164/85 (111) 99 I/O 04/17/17 04/17/17 04/17/17 04/18/17 04/18/17 04/18/17 07:00 15:00 23:00 07:00 15:00 23:00 Intake Total 220 ml 240 ml 1500 ml Output Total 575 ml 850 ml 1025 ml Balance -355 ml -610 ml 475 ml Intake Oral 120 ml 240 ml 1500 ml IV Total 100 ml Output Urine Total 575 ml 850 ml 1025 ml # Bowel Movements 1 Result Diagram: 04/17/17 0849 04/18/17 1029 Imaging Last Impressions Chest X-Ray 04/18/17 0600 Signed Impressions: Service Date/Time: Tuesday, April 18, 2017 04:32 - CONCLUSION: Resolution of bilateral interstitial opacity. Mild residual right midlung zone opacity likely represent atelectasis or scarring. Artemio Spencer MD CT Angiography 04/05/17 0000 Signed Impressions: Service Date/Time: Wednesday, April 05, 2017 20:05 - CONCLUSION: 1. No pulmonary embolus. 2. Patchy bilateral pneumonia as above. 3. Vague left hilar mass concerning for carcinoma. 4. Upper limits of normal to mildly enlarged mediastinal lymph nodes. 5. Coronary artery calcification. Dmitri Manuel MD Objective Remarks General: Elderly male in no acute distress. Skin: No rash or lesions Heart: Regular rate and rhythm. No murmur. Lungs: Scattered wheeze. Breathing is nonlabored. Abdomen: Soft, nontender, nondistended. Extremities: No lower extremity edema. No cyanosis Neuro: Awake and alert and nonfocal Procedures None A/P Problem List: (1) Sepsis ICD Code: A41.9 - Sepsis, unspecified organism Status: Acute (2) PNA (pneumonia) ICD Code: J18.9 - Pneumonia, unspecified organism (3) OBED (acute kidney injury) ICD Code: N17.9 - Acute kidney failure, unspecified (4) Lung cancer ICD Code: C34.90 - Malignant neoplasm of unspecified part of unspecified bronchus or lung Assessment and Plan 1. Sepsis: Resolved. Source is pneumonia. 2. Bilateral pneumonia: Appreciate pulmonology, infectious disease recommendations. Continue Levaquin till April 26. Sputum culture growing Pseudomonas. 3. COPD exacerbation: Improving no active wheezing. Continue bronchodilators, steroids, Symbicort. Appreciate pulmonology recommendations. Transitioned from Solu-Medrol to prednisone then wean. 4. Non-ST elevation [place]: Appreciate cardiology evaluation. Continue Cardizem, Lopressor, lisinopril, aspirin. 5. 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 Asymptomatic. Fluid restriction. Will monitor GI prophylaxis: Pepcid. DVT prophylaxis: SCDs, subcutaneous heparin Deconditioning. Continue physical therapy recommended rehab Discharge Planning Stable for discharge to SNF when arranged Problem Qualifiers (1) Sepsis: Qualified Codes: A41.9 - Sepsis, unspecified organism Ranjan Ho MD Apr 18, 2017 12:33
[2017-04-18] MEDS ORDERED: ECASA81 PO (12:38)
[2017-04-18] MEDS ORDERED: PANT40TA3 PO (12:38)
[2017-04-18] MEDS: LEVOFLOXACIN 750 MG TAB PO SCH (14:25)
[2017-04-18] MEDS: CLOPIDOGREL 75 MG TAB PO SCH (14:25)
[2017-04-18] MEDS: ACETAMINOPHEN/HYDROcodone 325 MG/5 MG TAB PO PRN (20:21)
[2017-04-18] MEDS: REMOVE OLD NICODERM (NICOTINE) PATCH T-DERMAL SCH (21:00)
[2017-04-19] VITALS (12 sets, daily range): BP systolic 139–158; BP diastolic 75–83; PULSE 79–91; RESP 17–20; TEMP 97.3–98.2; O2SAT 96–98
[2017-04-19] MEDS: ACETAMINOPHEN/HYDROcodone 325 MG/5 MG TAB PO PRN ×2 (02:55→20:58)
[2017-04-19] MEDS: CHLORHEXIDINE GLUCONATE 2 % 1 PACK (2 CLOTHS) TOP SCH (04:00)
[2017-04-19] MEDS: RESP: IPRATROPIUM 0.5 MG/2.5 ML NEB NEB SCH ×3 (04:57→16:07)
[2017-04-19] MEDS: DILTIAZEM HCL 60 MG TAB PO SCH ×3 (05:46→22:13)
[2017-04-19] MEDS: LISINOPRIL 5 MG TAB PO SCH (08:51)
[2017-04-19] MEDS: guaiFENesin E.R. 600 MG TAB PO SCH ×2 (08:51→20:57)
[2017-04-19] MEDS: HEPARIN SODIUM - SQ 10,000 UNITS/ML VIAL SQ SCH ×2 (08:51→20:58)
[2017-04-19] MEDS: DOCUSATE SODIUM 50 MG/SENNA 8.6 MG TAB PO SCH ×2 (08:51→20:56)
[2017-04-19] MEDS: NICOTINE 14 MG/24 HR PATCH T-DERMAL SCH (08:51)
[2017-04-19] MEDS: CLOPIDOGREL 75 MG TAB PO SCH (08:51)
[2017-04-19] MEDS: FUROSEMIDE 40 MG TAB PO SCH (08:51)
[2017-04-19] MEDS: METOPROLOL TARTRATE 50 MG TAB PO SCH ×2 (08:51→20:56)
[2017-04-19] MEDS: predniSONE 20 MG TAB PO SCH ×2 (08:52→20:57)
[2017-04-19] MEDS: SODIUM CHLORIDE 0.9% FLUSH 10 ML FLUSH IV FLUSH SCH ×2 (08:52→20:58)
[2017-04-19] MEDS: PANTOPRAZOLE SOD 40 MG DELAYED RELEASE TAB PO SCH (08:52)
[2017-04-19] MEDS: BUDESONIDE-FORMOTEROL 160/4.5 MCG INHALER INH SCH ×2 (08:52→20:59)
[2017-04-19] MEDS: ASPIRIN EC 81 MG TABEC PO SCH (08:52)
[2017-04-19] MEDS: NYSTAT/DIPHENHY/LIDO MOUTHWASH (Adult) 120ML SWISH-SWAL SCH ×4 (08:53→20:58)
[2017-04-19 09:52] LABS: ANION GAP 9 MEQ/L (5-15); BICARBONATE 29.5 MEQ/L (21.0-32.0); BLOOD UREA NITROGEN 21 MG/DL (7-18); CHLORIDE 90 MEQ/L (98-107); GLOMERULAR FILTRATION RATE 90 ML/MIN (>89); MAGNESIUM 1.8 MG/DL (1.5-2.5); POTASSIUM 4.5 MEQ/L (3.5-5.1); SODIUM (NA) 128 MEQ/L (136-145)
[2017-04-19 10:40] LABS: HEMOGLOBIN A1a 2.1 %; HEMOGLOBIN Ao 82.9 %; HEMOGLOBIN F 1.5 %; HEMOGLOBIN LA1C 2.2 %
[2017-04-19] MEDS: LEVOFLOXACIN 750 MG TAB PO SCH (13:04)
--- NOTE | 2017-04-19 14:51 | HHI.PR ---
Subjective Remarks Follow-up pneumonia and hyponatremia. He is doing okay anxious to leave the hospital. Denies shortness of breath, headache and dizziness. Discussed with RN Objective Vitals Vital Signs Date Time Temp Pulse Resp B/P (MAP) Pulse Ox O2 Delivery O2 Flow Rate FiO2 04/19/17 12:07 97.6 82 20 155/76 (102) 97 04/19/17 09:12 97.4 85 20 149/77 (101) 97 04/19/17 04:00 97.9 87 17 151/80 (103) 98 04/19/17 04:00 Nasal Cannula 2.00 04/19/17 03:49 81 04/19/17 00:00 Nasal Cannula 2.00 Humidified 04/19/17 00:00 98.1 83 17 158/75 (102) 98 04/18/17 23:56 85 04/18/17 21:47 96 Nasal Cannula 2.00 04/18/17 20:00 98.7 89 17 152/82 (105) 95 04/18/17 20:00 Nasal Cannula 2.00 Humidified 04/18/17 19:44 94 04/18/17 16:00 98.0 71 20 153/76 (101) 97 I/O 04/18/17 04/18/17 04/18/17 04/19/17 04/19/17 04/19/17 07:00 15:00 23:00 07:00 15:00 23:00 Intake Total 1500 ml 1240 ml 200 ml 840 ml Output Total 1025 ml 1500 ml 1100 ml 475 ml Balance 475 ml -260 ml -900 ml 365 ml Intake Oral 1500 ml 1240 ml 200 ml 840 ml Output Urine Total 1025 ml 1500 ml 1100 ml 475 ml # Bowel Movements 1 0 0 Result Diagram: 04/17/17 0849 04/19/17 0720 Objective Remarks General: Elderly male in no acute distress. Skin: No rash or lesions Heart: Regular rate and rhythm. No murmur. Lungs: Scattered wheeze. Breathing is nonlabored. Abdomen: Soft, nontender, nondistended. Extremities: No lower extremity edema. No cyanosis Neuro: Awake and alert and nonfocal No significant change in PE from previous Procedures None A/P Problem List: (1) Sepsis ICD Code: A41.9 - Sepsis, unspecified organism Status: Acute (2) PNA (pneumonia) ICD Code: J18.9 - Pneumonia, unspecified organism (3) OBED (acute kidney injury) ICD Code: N17.9 - Acute kidney failure, unspecified (4) Lung cancer ICD Code: C34.90 - Malignant neoplasm of unspecified part of unspecified bronchus or lung Assessment and Plan 1. Sepsis: Resolved. Source is pneumonia. 2. Bilateral pneumonia: Appreciate pulmonology, infectious disease recommendations. Continue Levaquin till April 26. Sputum culture growing Pseudomonas. 3. COPD exacerbation: Improving no active wheezing. Continue bronchodilators, steroids, Symbicort. Appreciate pulmonology recommendations. Transitioned from Solu-Medrol to prednisone then wean. 4. Non-ST elevation [place]: Appreciate cardiology evaluation. Continue Cardizem, Lopressor, lisinopril, aspirin. 5. 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 Asymptomatic. Fluid restriction. Start sodium chloride tab once a day. Check serum osmolality, urine sodium and osmolality. Will monitor GI prophylaxis: Pepcid. DVT prophylaxis: SCDs, subcutaneous heparin Deconditioning. Continue physical therapy recommended rehab Discharge Planning Stable for discharge to SNF when arranged Problem Qualifiers (1) Sepsis: Qualified Codes: A41.9 - Sepsis, unspecified organism Ranjan Ho MD Apr 19, 2017 14:51
[2017-04-19] MEDS ORDERED: SODI1TAB PO (14:56)
[2017-04-19] MEDS: SODIUM CHLORIDE 1 GRAM TAB PO SCH (18:37)
[2017-04-19] MEDS: REMOVE OLD NICODERM (NICOTINE) PATCH T-DERMAL SCH (21:00)
[2017-04-20] VITALS (9 sets, daily range): BP systolic 142–166; BP diastolic 73–89; PULSE 79–106; RESP 20–21; TEMP 97.2–98; O2SAT 94–100
[2017-04-20] MEDS: RESP: IPRATROPIUM 0.5 MG/2.5 ML NEB NEB SCH ×4 (00:26→16:00)
[2017-04-20] MEDS: CHLORHEXIDINE GLUCONATE 2 % 1 PACK (2 CLOTHS) TOP SCH (04:00)
[2017-04-20] MEDS: DILTIAZEM HCL 60 MG TAB PO SCH ×2 (06:06→13:07)
[2017-04-20] MEDS: SODIUM CHLORIDE 1 GRAM TAB PO SCH (08:04)
[2017-04-20] MEDS: guaiFENesin E.R. 600 MG TAB PO SCH (08:04)
[2017-04-20] MEDS: CLOPIDOGREL 75 MG TAB PO SCH (08:04)
[2017-04-20] MEDS: LISINOPRIL 5 MG TAB PO SCH (08:04)
[2017-04-20] MEDS: FUROSEMIDE 40 MG TAB PO SCH (08:04)
[2017-04-20] MEDS: predniSONE 20 MG TAB PO SCH (08:04)
[2017-04-20] MEDS: BUDESONIDE-FORMOTEROL 160/4.5 MCG INHALER INH SCH (08:05)
[2017-04-20] MEDS: ASPIRIN EC 81 MG TABEC PO SCH (08:05)
[2017-04-20] MEDS: METOPROLOL TARTRATE 50 MG TAB PO SCH (08:05)
[2017-04-20] MEDS: HEPARIN SODIUM - SQ 10,000 UNITS/ML VIAL SQ SCH (08:05)
[2017-04-20] MEDS: PANTOPRAZOLE SOD 40 MG DELAYED RELEASE TAB PO SCH (08:05)
[2017-04-20] MEDS: ACETAMINOPHEN/HYDROcodone 325 MG/5 MG TAB PO PRN (08:05)
[2017-04-20] MEDS: DOCUSATE SODIUM 50 MG/SENNA 8.6 MG TAB PO SCH (08:06)
[2017-04-20] MEDS: SODIUM CHLORIDE 0.9% FLUSH 10 ML FLUSH IV FLUSH SCH (08:06)
[2017-04-20] MEDS: NYSTAT/DIPHENHY/LIDO MOUTHWASH (Adult) 120ML SWISH-SWAL SCH ×3 (08:06→18:00)
[2017-04-20] MEDS: NICOTINE 14 MG/24 HR PATCH T-DERMAL SCH (08:07)
--- NOTE | 2017-04-20 09:13 | HHI.IDPN ---
Subjective Subjective Remarks Patient is a 61-year-old male, presented to the hospital complaining of one- week history of generalized weakness, as well as worsening shortness of breath. Denies any significant cough or sputum production. He was diagnosed to have lung cancer November 2016, and has received about 5 weeks of radiation therapy. He has not had any nausea or vomiting. Denies any chest pain. His initial chest x -ray showed a trace right base infiltrate. Patient was started on antibiotics for pneumonia. Late last night label paster today, patient had deterioration with increasing shortness of breath and increasing oxygen requirement. His chest x-ray showed worsening infiltrates on the right side. He was transferred to the intensive care unit for closer monitoring. Patient has been requiring BiPAP for oxygenation. Patient has had fevers up to 101. Blood cultures are negative so far. Urine for Legionella and pneumococcal antigen are negative. Infectious disease consultation has been requested to evaluate the patient with worsening pneumonia Notes reviewed Clinically doing well from ID standpoint Waiting for SNF placement Good sats on nasal O2 Temps ok Antibiotics Current Medications Levaquin po Medications (Trade) Dose Ordered Sig/[place] Route Start Time Stop Time Status Last Admin (NS Flush) 2 ml UNSCH PRN IV FLUSH 04/05/17 22:00 (NS Flush) 2 ml BID IV FLUSH 04/06/17 09:00 04/17/17 08:21 (Zofran Inj) 4 mg Q6H PRN IVP 04/05/17 22:00 (Tylenol) 650 mg Q6H PRN PO 04/05/17 22:00 04/07/17 15:39 ([place] 5-325 Mg) 1 tab Q4H PRN PO 04/05/17 22:00 04/15/17 18:22 (Dilaudid Pf Inj) 1 mg Q3H PRN IV PUSH 04/05/17 22:00 04/09/17 23:02 (Nata-Colace) 1 tab BID PO 04/06/17 09:00 04/17/17 08:25 (Milk Of Magnesia Liq) 30 ml Q12H PRN PO 04/05/17 22:00 (Senokot) 17.2 mg Q12H PRN PO 04/05/17 22:00 (Dulcolax Supp) 10 mg DAILY PRN RECTAL 04/05/17 22:00 (Lactulose Liq) 30 ml DAILY PRN PO 04/05/17 22:00 (Mucinex Er) 600 mg BID PO 04/06/17 09:00 04/17/17 08:25 (Heparin Inj) 5,000 units Q12HR SQ 04/06/17 09:00 04/17/17 08:25 (Magic Mouthwash Adult Liq) 10 ml QID SWISH-SWAL 04/06/17 13:00 04/17/17 08:25 (Protonix Inj) 40 mg DAILY IV PUSH 04/07/17 14:45 04/17/17 08:22 (Atrovent Neb) 0.5 mg Q6HR NEB NEB 04/08/17 10:00 04/17/17 04:13 (Atrovent Neb) 0.5 mg Q2HR NEB PRN NEB 04/08/17 06:00 Miscellaneous Information 1 Q361D XX 04/08/17 06:15 (Chlorhexidine 2% Cloth) Taper DAILY@04 TOP 04/09/17 04:00 04/05/18 03:59 04/13/17 04:00 (Chlorhexidine 2% Cloth) 3 pack UNSCH PRN TOP 04/08/17 06:15 (Morphine Inj) 4 mg Q4HR PRN IV PUSH 04/08/17 06:30 04/12/17 10:59 (Cardizem) 60 mg Q8HR PO 04/08/17 22:00 04/17/17 06:01 (Ecotrin Ec) 81 mg DAILY PO 04/10/17 09:00 04/17/17 08:25 (D50w (Vial) Inj) 50 ml UNSCH PRN IV PUSH 04/10/17 08:15 (Glucagon Inj) 1 mg UNSCH PRN OTHER 04/10/17 08:15 (NovoLIN R SUPPLEMENTAL SCALE) 1 Q6HR SQ 04/10/17 08:15 04/16/17 13:38 (Lopressor) 50 mg Q12HR PO 04/11/17 21:00 04/17/17 08:25 (Lopressor Inj) 2.5 mg Q6H PRN IV PUSH 04/11/17 17:30 04/11/17 18:13 (Prinivil) 5 mg DAILY PO 04/12/17 09:00 04/17/17 08:25 (Lasix Inj) 40 mg DAILY IV PUSH 04/13/17 09:15 04/17/17 08:21 (Symbicort 160-4.5 Mcg Inh) 1 puff Q12HR INH 04/14/17 21:00 04/17/17 08:21 (Habitrol 14 Mg Patch.24 Hr) 1 patch DAILY T-DERMAL 04/15/17 14:15 04/17/17 08:19 Miscellaneous Information 1 HS T-DERMAL 04/15/17 21:00 04/16/17 20:30 (Levaquin) 750 mg Q24H PO 04/16/17 14:00 04/16/17 13:38 (Deltasone) 20 mg BID PO 04/16/17 21:00 04/17/17 08:25 Lines PIV Past Medical History Lung CA Hypertension CAD COPD Tobacco Abuse Past Surgical History Abdominal surgery Allergies: Coded Allergies: No Known Allergies (Verified Allergy, Unknown, 04/05/17) Objective . Vital Signs Date Time Temp Pulse Resp B/P (MAP) Pulse Ox O2 Delivery O2 Flow Rate FiO2 04/20/17 04:19 98 Nasal Cannula 2.00 04/20/17 04:00 Nasal Cannula 2.00 Humidified 04/20/17 04:00 97.6 94 21 147/89 (108) 98 04/20/17 03:42 82 04/20/17 00:27 98 Nasal Cannula 2.00 04/20/17 00:00 97.2 87 20 151/87 (108) 97 04/20/17 00:00 Nasal Cannula 2.00 Humidified 04/19/17 23:59 85 04/19/17 20:00 97.3 87 20 154/83 (106) 98 04/19/17 20:00 Nasal Cannula 2.00 Humidified 04/19/17 19:55 79 04/19/17 16:06 98.2 91 20 139/81 (100) 96 04/19/17 16:00 80 04/19/17 16:00 Nasal Cannula 2.00 04/19/17 12:07 97.6 82 20 155/76 (102) 97 04/19/17 11:45 96 Nasal Cannula 2.00 . Laboratory Tests Test 04/18/17 10:29 04/19/17 07:20 04/20/17 08:36 Blood Urea Nitrogen 21 MG/DL 21 MG/DL Creatinine 0.93 MG/DL 0.86 MG/DL Random Glucose 152 MG/DL 102 MG/DL Calcium Level 8.0 MG/DL 8.9 MG/DL Magnesium Level 1.6 MG/DL 1.8 MG/DL Sodium Level 129 MEQ/L 128 MEQ/L Potassium Level 4.0 MEQ/L 4.5 MEQ/L Chloride Level 92 MEQ/L 90 MEQ/L Carbon Dioxide Level 31.2 MEQ/L 29.5 MEQ/L Anion Gap 6 MEQ/L 9 MEQ/L Estimat Glomerular Filtration Rate 82 ML/MIN 90 ML/MIN Hemoglobin A1c 5.8 % Serum Osmolality 281 MOSM/KG Thyroid Stimulating Hormone 3rd Gen 3.070 uIU/ML Imaging Chest X-Ray 04/10/17 0000 Signed Impressions: Service Date/Time: Monday, April 10, 2017 08:16 - CONCLUSION: 1. Bilateral predominantly interstitial process, right much worse than left. There may be slight interval improvement when compared to prior. 2. Fullness in the left perihilar distribution. Jaret Crouch MD Chest X-Ray 04/08/17 0000 Signed Impressions: Service Date/Time: Saturday, April 08, 2017 04:32 - CONCLUSION: New coarse infiltrate in the right lung most characteristic of pneumonia. Willy Pantoja MD CT Angiography 04/05/17 0000 Signed Impressions: Service Date/Time: Wednesday, April 05, 2017 20:05 - CONCLUSION: 1. No pulmonary embolus. 2. Patchy bilateral pneumonia as above. 3. Vague left hilar mass concerning for carcinoma. 4. Upper limits of normal to mildly enlarged mediastinal lymph nodes. 5. Coronary artery calcification. Dmitri Manuel MD Physical Exam GENERAL: awake and alert, NAD, on nasal O2 SKIN: Cool and dry. No generalized rash, no ecchymoses HEAD: Atraumatic. Normocephalic. No temporal wasting, or tenderness. EYES: [place] conjunctiva. No petechia or hemorrhage. Pupils equal, round and reactive to light. Extraocular movements full and intact. No scleral icterus. EARS, NOSE AND THROAT: Nose without bleeding or purulent nasal discharge. No sinus tenderness. Moist oral mucosa. CARDIOVASCULAR: Regular rate and rhythm. No murmurs, rubs or gallops heard RESPIRATORY: Coarse BS bilaterally, decreased on R side. No rales, wheezing or rhonchi ABDOMEN: Soft, non-tender, nondistended. Bowel sounds present and normoactive. No guarding. No rebound. No organomegaly. EXTREMITIES: No clubbing, cyanosis, or edema. No calf tenderness. Well perfused and warm. NEUROLOGICAL: Non-focal PSYCHIATRIC: Normal affect, calm and cooperative. LINE: No evidence of infection Assessment & Plan Remarks IMPRESSION Sepsis, due to PNA - clinically better PNA, C/S PSAE - CXR no change - clinically better CAP, patient with newly Dx lung CA, S/P XRT - CXR stable COPD Respiratory failure RECOMMENDATION Continue po Levaquin - end date ordered in [facility] Complete PNA Rx with Levaquin Patient clinically improvi and stable from ID standpoint I will sign off Audrey Zamora MD Apr 20, 2017 09:13
[2017-04-20 09:27] LABS: BICARBONATE 31.4 MEQ/L (21.0-32.0); MAGNESIUM 1.7 MG/DL (1.5-2.5); POTASSIUM 4.6 MEQ/L (3.5-5.1)
[2017-04-20] MEDS ORDERED: MORPHINE SULFATE 2 MG/ML INJ IV PUSH PRN (10:00)
[2017-04-20] MEDS: LEVOFLOXACIN 750 MG TAB PO SCH (13:07)
--- NOTE | 2017-04-20 14:03 | HHI.DS ---
Discharge Summary Admission Date Apr 05, 2017 at 21:48 Discharge Date: Apr 20, 2017 Admitting Diagnosis Bilateral pneumonia (1) Sepsis ICD Code: A41.9 - Sepsis, unspecified organism Diagnosis: Principal Status: Acute (2) PNA (pneumonia) ICD Code: J18.9 - Pneumonia, unspecified organism Diagnosis: Principal (3) OBED (acute kidney injury) ICD Code: N17.9 - Acute kidney failure, unspecified Diagnosis: Principal (4) Lung cancer ICD Code: C34.90 - Malignant neoplasm of unspecified part of unspecified bronchus or lung Diagnosis: Principal Procedures None Brief History - From Admission This is a 61-year-old male with a PMH of Lung CA, HTN, CAD, COPD and Tobacco Abuse who was brought to the ER by friends secondary to complaints of generalized weakness and SOB x1 wk. Also notes decreased PO intake. Recently diagnosed w/ Lung CA in November 2016, has completed 5wks of Radiation, pending Chemotherapy. States symptoms have been getting progressively worse. Denies fever, chills, nausea, vomiting or diarrhea. On arrival, BP 117/64, HR 133, O2 sat 97% on 2L NC, Temp 101.1. WBC normal however elevated neutrophil count. Creatinine 1.53, previously 0.86 on 09/25/16. Troponin negative. Lactic Acid normal. INR 1.1. CXR with trace right basilar infiltrate. CTA Pulm negative for PE, patchy bilateral pneumonia, left hilar mass concerning for carcinoma. S /p Blood Cultures, Vanc/Cefepime in ER. CBC/BMP: 04/17/17 0849 04/20/17 0836 Significant Findings Laboratory Tests Test 04/18/17 10:29 04/19/17 07:20 04/19/17 20:25 04/20/17 08:36 Blood Urea Nitrogen 21 MG/DL (7-18) 21 MG/DL (7-18) 22 MG/DL (7-18) Random Glucose 152 MG/DL (74-106) Calcium Level 8.0 MG/DL (8.5-10.1) 8.1 MG/DL (8.5-10.1) Sodium Level 129 MEQ/L (136-145) 128 MEQ/L (136-145) 127 MEQ/L (136-145) Chloride Level 92 MEQ/L (98-107) 90 MEQ/L (98-107) 90 MEQ/L (98-107) Estimat Glomerular Filtration Rate 82 ML/MIN (>89) 84 ML/MIN (>89) Imaging Last Impressions Chest X-Ray 04/18/17 0600 Signed Impressions: Service Date/Time: Tuesday, April 18, 2017 04:32 - CONCLUSION: Resolution of bilateral interstitial opacity. Mild residual right midlung zone opacity likely represent atelectasis or scarring. Artemio Spencer MD CT Angiography 04/05/17 0000 Signed Impressions: Service Date/Time: Wednesday, April 05, 2017 20:05 - CONCLUSION: 1. No pulmonary embolus. 2. Patchy bilateral pneumonia as above. 3. Vague left hilar mass concerning for carcinoma. 4. Upper limits of normal to mildly enlarged mediastinal lymph nodes. 5. Coronary artery calcification. Dmitri Manuel MD PE at Discharge General: Elderly male in no acute distress. Skin: No rash or lesions Heart: Regular rate and rhythm. No murmur. Lungs: Scattered wheeze. Breathing is nonlabored. Abdomen: Soft, nontender, nondistended. Extremities: No lower extremity edema. No cyanosis Neuro: Awake and alert and nonfocal No significant change in PE from previous Hospital Course 1. Sepsis: Resolved. Source is pneumonia. 2. Bilateral pneumonia: Appreciate pulmonology, infectious disease recommendations. Continue Levaquin till April 26. Sputum culture growing Pseudomonas. 3. COPD exacerbation: Improving no active wheezing. Continue bronchodilators, steroids, Symbicort. Appreciate pulmonology recommendations. Transitioned from Solu-Medrol to prednisone then wean. 4. Non-ST elevation [place]: Appreciate cardiology evaluation. Continue Cardizem, Lopressor, lisinopril, aspirin. 5. 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 Asymptomatic. Fluid restriction. Nodium chloride tab once a day. Will monitor GI prophylaxis: Pepcid. DVT prophylaxis: SCDs, subcutaneous heparin Deconditioning. Continue physical therapy recommended rehab which insurance denied He is requiring more oxygen after exercise but clinically stable. He is requesting to be discharged today. Will discharge with plan to wean and dc oxygen keep sat > 92% Pt Condition on Discharge: Stable Discharge Disposition: Disch w/ Home Health Serv Discharge Time: > 30 minutes Discharge Instructions DIET: Follow Instructions for: As Tolerated, No Restrictions Activities you can perform: Regular-No Restrictions Activities to Avoid: Driving Follow up Referrals: Appointment for Follow Up Appointment for Follow Up @ [facility] On[facility]/Hematology - 1 Week PCP Follow-up - 2-3 Days PCP Follow-up @ [facility] - 1 Week Pulmonology @ [facility] New Orders: BASIC METABOLIC PROF - 04/22/17 New Medications: Diltiazem CD 24 HR (Cardizem CD 24 HR) 240 Mg Caper 240 MG PO DAILY for Regulate Heart Beat, #30 CAP 0 Refills Oxygen (O2) (Oxygen (O2)) Device LITER RADHA.CANULA CONTINUOUS for Prevent Hypoxemia, #2 Oxygen Concentrator Portable Gaseous 2 L/min via Nasal Canula Continuous For 99 months Walker with Front Wheels (Walker with Front Wheels) 1 Mis Mis EA .ROUTE DIRECTED, #[address] (Aspirin DR) 81 Mg Tabdr 81 MG PO DAILY for Prevent Blood Clot, #30 TAB Levofloxacin (Levaquin) 750 Mg Tablet 750 MG PO Q24H for Infection, #8 TAB Lisinopril (Lisinopril) 5 Mg Tab 5 MG PO DAILY for Blood Pressure Management, #30 TAB Metoprolol Tartrate (Lopressor) 50 Mg Tab 50 MG PO Q12HR for Regulate Heart Beat, #60 TAB Jsejtkrz-Iivcvakvynqapzw-Roxzouglg Liq (Magic Mouthwash Adult Liq) 120 Ml Susp 10 ML SWISH-SWAL QID for Infection, #180 ML Pantoprazole (Pantoprazole) 40 Mg Tab 40 MG PO DAILY for Manage Heartburn, #14 TAB Prednisone (Prednisone) 20 Mg Tab 20 MG PO BID for Control Inflammation, #10 TAB Take 1 tab twice a day for 3 days then 1 tab daily for 4 days Sodium Chloride (Sodium Chloride) 1 Gram Tab 1 GM PO DAILY for Electrolyte Replacement, #14 TAB [Budeson-Formot 160-4.5 Mcg Inh] () 60 PUFF AERO 1 PUFF INH Q12HR for Breathing Treatment, #1 Changed Medications: Furosemide (Furosemide) 20 Mg Tab 40 MG PO DAILY for Blood Pressure Management, #60 TAB 0 Refills (Changed from: 20 MG; 30) Continued Medications: Clopidogrel (Clopidogrel) 75 Mg Tab 75 MG PO DAILY for Blood Clot Prevention, #30 TAB 0 Refills Cyanocobalamin (B12) 1,000 Mcg Tab Hydrocodone-Acetaminophen (Lorcet 10/650) Tab 1 TAB PO Q4HPRN FOR PAIN Lovastatin (Lovastatin) 10 Mg Tab 10 MG PO DAILY for Cholesterol Management, #30 TAB 0 Refills Multiple Vitamins W/ Minerals (Centrum) 1 Chew 1 TAB CHEW DAILY for Nutritional Supplement, TAB 0 Refills Umeclidinium-Vilanterol Inh (Anoro Ellipta Inh) 62.5-25 Mcg/Act Aero 1 PUFF INH, #1 INHALER 0 Refills Discontinued Medications: Metoprolol Tartrate (Metoprolol Tartrate) 25 Mg Tab 25 MG PO BID, #60 TAB 0 Refills Miscellaneous (No Current Meds) Misc Potassium Chloride ER (Klor-Con 8) 8 Meq Tab 8 MEQ PO TID for Electrolyte Replacement, #60 TAB 0 Refills Tamsulosin (Tamsulosin) 0.4 Mg Cap 0.4 MG PO BID for Manage Prostate Problems, #30 CAP 0 Refills Ranjan Ho MD Apr 20, 2017 14:03
--- NOTE | 2017-04-20 19:16 | HHI.PR ---
Subjective Remarks Feels better NO fever. On O2 at 2 L Wants to go home. Await placement at rehab. Objective Vital Signs Date Time Temp Pulse Resp B/P (MAP) Pulse Ox O2 Delivery O2 Flow Rate FiO2 04/20/17 16:00 106 04/20/17 16:00 97.7 105 20 166/86 (112) 100 04/20/17 15:10 4.00 04/20/17 12:00 98.0 88 20 142/73 (96) 94 04/20/17 12:00 79 04/20/17 09:21 18 04/20/17 09:18 98 Nasal Cannula 2.00 04/20/17 08:00 85 04/20/17 08:00 97.8 85 20 153/78 (103) 97 04/20/17 04:19 98 Nasal Cannula 2.00 04/20/17 04:00 Nasal Cannula 2.00 Humidified 04/20/17 04:00 97.6 94 21 147/89 (108) 98 04/20/17 03:42 82 04/20/17 00:27 98 Nasal Cannula 2.00 04/20/17 00:00 97.2 87 20 151/87 (108) 97 04/20/17 00:00 Nasal Cannula 2.00 Humidified 04/19/17 23:59 85 04/19/17 20:00 97.3 87 20 154/83 (106) 98 04/19/17 20:00 Nasal Cannula 2.00 Humidified 04/19/17 19:55 79 I/O 04/19/17 04/19/17 04/19/17 04/20/17 04/20/17 04/20/17 07:00 15:00 23:00 07:00 15:00 23:00 Intake Total 200 ml 840 ml 210 ml Output Total 1100 ml 475 ml 1050 ml Balance -900 ml 365 ml -840 ml Intake Oral 200 ml 840 ml 210 ml Output Urine Total 1100 ml 475 ml 1050 ml # Voids 1 # Bowel Movements 0 0 1 Result Diagram: 04/17/17 0849 04/20/17 0836 Objective Remarks GENERAL: This thinly built middle-aged white male who is alert, pale and in no distress. HEENT: Head normocephalic. Pupils are reactive. Sclerae are clear. Throat is clear. Nasal mucosa is clear. NECK: Supple. No bruits or thyroid enlargement or lymphadenopathy. CHEST: Increased AP diameter .There are occ crackles over the Bases CARDIOVASCULAR: Heart sounds are regular S1-S2. No murmur. ABDOMEN: Soft, non tender abdomen. Bowel sounds are active. Liver just felt below costal margin. EXTREMITIES: No lesions. No edema. No calf tenderness. Reflexes are 1+ with no gross motor deficits. NEUROLOGIC: Cranial nerves grossly intact. RECTAL: Exam is deferred. SKIN: No lesions. Assessment and Plan Assessment and Plan IMPRESSION 1. Bilat Pneumonia. 2.COPD with acute exacerbation and chronic bronchitis with emphysema. 3. Pulmonary edema. 4. Atrial fibrillation with arteriosclerotic heart disease. 5. History of hypertension. Plan : 1. Wean O2 to keep sat >92. 2. Taper Prednisone to 10 mg bid 3. Rehab placement 4. Continue antibiotics.Levaquin 5. Lasix 40 mg po daily. 6. PT evaluation 7. Nicotine patch 14 mg / 24 HR Michael Nicolas MD Apr 20, 2017 19:16
[2017-04-20] MEDS ORDERED: predniSONE 10 MG TAB PO SCH (21:00)
== END 2017-04-20 19:46 | disposition home health service (06) | DRG 871 ==
LOC: NEPE 18:26 → NEDA 21:48 → N04B 22:46 → HIMW 04-08 05:00 → N04A 04-15 15:19
PROVIDERS: ADMIT Hospitalist; ATTEND Internal Medicine
PROC: 5A09357 Assistance with Respiratory Ventilation, Less than 24 Consecutive Hours, Continuous Positive Airway Pressure (ICD-10-PCS; principal; 2017-04-08)
PROC: 30233N1 Transfusion of Nonautologous Red Blood Cells into Peripheral Vein, Percutaneous Approach (ICD-10-PCS; 2017-04-09)
DX: A41.9 Sepsis, unspecified organism (principal); J15.1 Pneumonia due to Pseudomonas; I21.A1 Myocardial infarction type 2; J96.01 Acute respiratory failure with hypoxia; E43 Unspecified severe protein-calorie malnutrition; R64 Cachexia; N17.9 Acute kidney failure, unspecified; C34.92 Malignant neoplasm of unspecified part of left bronchus or lung; J81.1 Chronic pulmonary edema; D64.9 Anemia, unspecified; J44.0 Chronic obstructive pulmonary disease with (acute) lower respiratory infection; J44.1 Chronic obstructive pulmonary disease with (acute) exacerbation; E22.2 Syndrome of inappropriate secretion of antidiuretic hormone; I48.0 Paroxysmal atrial fibrillation; E87.6 Hypokalemia; K13.70 Unspecified lesions of oral mucosa; E87.70 Fluid overload, unspecified; R53.1 Weakness; F17.210 Nicotine dependence, cigarettes, uncomplicated; Z68.20 Body mass index [BMI] 20.0-20.9, adult; I10 Essential (primary) hypertension; R65.20 Severe sepsis without septic shock; I25.10 Atherosclerotic heart disease of native coronary artery without angina pectoris; I73.9 Peripheral vascular disease, unspecified; F41.9 Anxiety disorder, unspecified; Z92.3 Personal history of irradiation
CPT/HCPCS: 36430; 36600; 71010; 71275; 76937; 80048; 80053; 80202; 81001; 82805; 82948; 83036; 83605; 83735; 83880; 83930; 83935; 84100; 84132; 84134; 84300; 84443; 84484; 85007; 85014; 85018; 85025; 85027; 85610; 85730; 86850; 86900; 86901; 86920; 87040; 87070; 87077; 87186; 87205; 87449; 87641; 93005; 93306; 94002; 94620; 94640; 94664; 96365; 96367; C9113; J0692; J1170; J1644; J1940; J2060; J2270; J2920; J2930; J3370; J3475; J3480; J7030; J7050; J7512; J7644; P9016; Q9967

== ENCOUNTER 2017-07-17 07:32 | Inpatient (IN) | payer OTHER, MEDICARE ==
[2017-07-17] VITALS (7 sets, daily range): BP systolic 103–134; BP diastolic 58–78; PULSE 80–107; RESP 16–18; TEMP 98.1–98.8; O2SAT 92–98
[~2017-07-17 07:32] MED LIST changes: +Budeson-Formot 160-4.5 Mcg Inh INH; +CARD240C6 PO; +CENTCHW4 CHEW; +CLOP75TA PO; +CYAN1TAB24; +ECASA81 PO; +FURO20TA PO; +LEVA750T9 PO; +LISI-519 PO; +LOVA10TA PO; +MAGICADU2 SWISH-SWAL; +METO-309 PO; +OXYGENDME NAS.CANULA; +PANT40TA3 PO; +PRED20 PO; +SODI1TAB PO; +UMEC1AER INH; +WALKER WHEELS/F1 MIS; -Z.0.NO CURRENT MEDS
[2017-07-17] MEDS ORDERED: fentaNYL CITRATE 250 MCG/5 ML AMP IV PUSH ONE (07:45)
--- NOTE | 2017-07-17 07:45 | PD ---
HPI Chief Complaint: Skin Problem Time Seen by Provider: 07:39 Travel History International Travel<30 days: No Contact w/Intl Traveler<30days: No Traveled to known affect area: No History of Present Illness HPI The patient is a 61-year-old male who presents emergency department for generalized malaise and right foot swelling and ecchymosis. The patient has a history of lung cancer, recently completed radiation therapy and is scheduled undergo PET scan and evaluation by his oncologist Dr. Will. The patient states he is getting in the shower earlier today when he noticed that his right foot was swollen, slightly ecchymotic. He also complains of swelling to the right lower extremity. He denies any history DVT. He does complain of generalized malaise, was pulseless several months ago for bilateral pneumonia. He denies any current fever. He denies any chest pain, increasing shortness of breath, nausea, vomiting, diarrhea, or abdominal pain. PFSH Past Medical History Asthma: No Autoimmune Disease: No Blood Disorders: No Anxiety: Yes Depression: Yes Heart Rhythm Problems: No Cancer: Yes (LEFT LUNG ) Cardiac Catheterization: Yes Cardiovascular Problems: Yes (PAD) High Cholesterol: No Chemotherapy: Yes Chest Pain: No Congestive Heart Failure: No COPD: Yes Diabetes: No Endocrine: No Genitourinary: Yes Hypertension: Yes Immune Disorder: No Musculoskeletal: Yes Neurologic: No Psychiatric: Yes Reproductive: No Respiratory: Yes (LEFT LUNG CANCER) Myocardial Infarction: No Radiation Therapy: Yes Sleep Apnea: No Thyroid Disease: No Past Surgical History Abdominal Surgery: Yes AICD: No Arteriovenous Shunt: No Eye Surgery: Yes (CATARACT REMOVAL BILATERAL) Insulin Pump: No Joint Replacement: No Oral Surgery: Yes Pacemaker: No Social History Alcohol Use: Yes Tobacco Use: Yes Substance Use: Yes (ALONG TIME AGO) Allergies-Medications (Allergen,Severity, Reaction): Coded Allergies: No Known Allergies (Verified Allergy, Unknown, 07/17/17) Reported Meds & Prescriptions Reported Meds & Active Scripts Active Sodium Chloride 1 Gram Tab 1 Gm PO DAILY Aspirin DR (Aspirin) 81 Mg Tabdr 81 Mg PO DAILY Oxygen (O2) Device Liter RADHA.CANULA CONTINUOUS Oxygen Concentrator Portable Gaseous 2 L/min via Nasal Canula Continuous For 99 months Walker with Front Wheels (Device) 1 Mis Mis Ea .ROUTE DIRECTED Prednisone 20 Mg Tab 20 Mg PO BID Take 1 tab twice a day for 3 days then 1 tab daily for 4 days [Budeson-Formot 160-4.5 Mcg Inh] 60 PUFF Aero 1 Puff INH Q12HR Lisinopril 5 Mg Tab 5 Mg PO DAILY Cardizem CD 24 HR (Diltiazem CD 24 HR) 240 Mg Caper 240 Mg PO DAILY Lopressor (Metoprolol Tartrate) 50 Mg Tab 50 Mg PO Q12HR Furosemide 20 Mg Tab 40 Mg PO DAILY Levaquin (Levofloxacin) 750 Mg Tablet 750 Mg PO Q24H Reported Ranitidine (Ranitidine HCl) 300 Mg Tab Unknown Dose PO DAILY Centrum (Multiple Vitamins W/ Minerals) 1 Chew 1 Tab CHEW DAILY B12 (Cyanocobalamin) 1,000 Mcg Tab Anoro Ellipta Inh (Umeclidinium/Vilanterol) 62.5-25 Mcg/Act Aero 1 Puff INH Lovastatin 10 Mg Tab 10 Mg PO DAILY Clopidogrel (Clopidogrel Bisulfate) 75 Mg Tab 75 Mg PO DAILY Review of Systems Except as stated in HPI: all other systems reviewed are Neg General / Constitutional: No: Fever HENT: No: Lightheadedness Cardiovascular: No: Chest Pain or Discomfort Respiratory: Positive: Cough, No: Shortness of Breath Gastrointestinal: No: Nausea, Vomiting, Diarrhea, Abdominal Pain Genitourinary: No: Dysuria Musculoskeletal: Positive: Weakness, Edema, Pain Neurologic: No: Dizziness Physical Exam Narrative GENERAL: Awake, alert, pleasant 61-year-old male who appears his stated age is in no acute respiratory distress. SKIN: Focused skin assessment warm/dry. HEAD: Atraumatic. Normocephalic. EYES: Pupils equal and round. No scleral icterus. No injection or drainage. ENT: No nasal bleeding or discharge. Slightly dry mucous membranes. NECK: Trachea midline. No JVD. CARDIOVASCULAR: Regular rate and rhythm. No murmur appreciated. RESPIRATORY: No accessory muscle use. Few scattered wheezes. GASTROINTESTINAL: Abdomen soft, non-tender, nondistended. No rebound tenderness. MUSCULOSKELETAL: Right foot is edematous when compared to left, ecchymosis noted over the dorsal aspect of the right foot. Mild tenderness mid right foot. No tenderness of the medial or lateral malleus. Patient is able fully flex the right hip and right knee. NEUROLOGICAL: Awake and alert. No obvious cranial nerve deficits. Motor grossly within normal limits. Normal speech. Nonfocal. Oriented 4. PSYCHIATRIC: Appropriate mood and affect; insight and judgment normal. Data Data Last Documented VS Vital Signs Date Time Temp Pulse Resp B/P (MAP) Pulse Ox O2 Delivery O2 Flow Rate FiO2 07/17/17 07:40 88 16 133/78 (96) 92 Orders Orders Fentanyl Inj (Fentanyl Inj) (07/17/17 07:45) Complete Blood Count With Diff (07/17/17 07:45) Comprehensive Metabolic Panel (07/17/17 07:45) Urinalysis - C+S If Indicated (07/17/17 07:45) Lactic Acid (07/17/17 07:45) Chest, Single Ap (07/17/17 ) Foot, Complete (Asf2cxy) (07/17/17 ) Us Leg Venous Doppler (07/17/17 ) Cefepime Inj (Maxipime Inj) (07/17/17 09:00) Azithromycin Inj (Zithromax Inj) (07/17/17 09:00) Blood Culture (07/17/17 08:47) Albuterol-Ipratropium Neb (Duoneb Neb) (07/17/17 09:00) Potassium Chloride (Kcl) (07/17/17 09:00) Diet Regular Basic (07/17/17 Breakfast) Aspirin Ec (Ecotrin Ec) (07/18/17 09:00) Clopidogrel (Plavix) (07/18/17 09:00) Diltiazem Cd (Cardizem Cd) (07/18/17 09:00) Furosemide (Lasix) (07/18/17 09:00) Lisinopril (Prinivil) (07/18/17 09:00) Pravastatin (Pravachol) (07/18/17 09:00) Metoprolol Tartrate (Lopressor) (07/17/17 21:00) Multivitamins-Minerals Therap (Theragran (07/18/17 09:00) Prednisone (Deltasone) (07/17/17 21:00) Sodium Chloride (Sodium Chloride) (07/18/17 09:00) (Nf) [Budeson-Formot 160-4.5 Mcg Inh] (S (07/17/17 21:00) Admit Order (Ed Use Only) (07/17/17 09:20) Labs Laboratory Tests Test 07/17/17 07:50 White Blood Count 9.8 TH/MM3 Red Blood Count 2.64 MIL/MM3 Hemoglobin 8.7 GM/DL Hematocrit 25.1 % Mean Corpuscular Volume 95.2 FL Mean Corpuscular Hemoglobin 33.1 PG Mean Corpuscular Hemoglobin Concent 34.7 % Red Cell Distribution Width 18.8 % Platelet Count 164 TH/MM3 Mean Platelet Volume 7.2 FL Neutrophils (%) (Auto) 89.8 % Lymphocytes (%) (Auto) 1.3 % Monocytes (%) (Auto) 8.2 % Eosinophils (%) (Auto) 0.5 % Basophils (%) (Auto) 0.2 % Neutrophils # (Auto) 8.8 TH/MM3 Lymphocytes # (Auto) 0.1 TH/MM3 Monocytes # (Auto) 0.8 TH/MM3 Eosinophils # (Auto) 0.0 TH/MM3 Basophils # (Auto) 0.0 TH/MM3 CBC Comment DIFF FINAL Differential Comment Blood Urea Nitrogen 13 MG/DL Creatinine 0.89 MG/DL Random Glucose 81 MG/DL Total Protein 6.1 GM/DL Albumin 2.4 GM/DL Calcium Level 8.3 MG/DL Alkaline Phosphatase 94 U/L Aspartate Amino Transf (AST/SGOT) 15 U/L Alanine Aminotransferase (ALT/SGPT) 19 U/L Total Bilirubin 0.4 MG/DL Sodium Level 130 MEQ/L Potassium Level 3.0 MEQ/L Chloride Level 91 MEQ/L Carbon Dioxide Level 30.7 MEQ/L Anion Gap 8 MEQ/L Estimat Glomerular Filtration Rate 87 ML/MIN Lactic Acid Level 1.8 mmol/L [facility] Medical Decision Making Medical Screen Exam Complete: Yes Emergency Medical Condition: Yes Medical Record Reviewed: Yes Interpretation(s) Last Impressions Lower Extremity Ultrasound 07/17/17 0000 Signed Impressions: Service Date/Time: Monday, July 17, 2017 08:00 - CONCLUSION: No evidence of deep venous thrombosis within the right lower extremity. Rodrigo Michel MD Foot X-Ray 07/17/17 0000 Signed Impressions: Service Date/Time: Monday, July 17, 2017 07:51 - CONCLUSION: 1. Unremarkable radiographs of the right foot. Cameron Lemus MD Chest X-Ray 07/17/17 0000 Signed Impressions: Service Date/Time: Monday, July 17, 2017 07:56 - CONCLUSION: Left midlung zone airspace consolidation consistent with pneumonia. Recommend followup to resolution to exclude a post obstructive process. Cameron Lemus MD Laboratory Tests Test 07/17/17 07:50 White Blood Count 9.8 TH/MM3 Red Blood Count 2.64 MIL/MM3 Hemoglobin 8.7 GM/DL Hematocrit 25.1 % Mean Corpuscular Volume 95.2 FL Mean Corpuscular Hemoglobin 33.1 PG Mean Corpuscular Hemoglobin Concent 34.7 % Red Cell Distribution Width 18.8 % Platelet Count 164 TH/MM3 Mean Platelet Volume 7.2 FL Neutrophils (%) (Auto) 89.8 % Lymphocytes (%) (Auto) 1.3 % Monocytes (%) (Auto) 8.2 % Eosinophils (%) (Auto) 0.5 % Basophils (%) (Auto) 0.2 % Neutrophils # (Auto) 8.8 TH/MM3 Lymphocytes # (Auto) 0.1 TH/MM3 Monocytes # (Auto) 0.8 TH/MM3 Eosinophils # (Auto) 0.0 TH/MM3 Basophils # (Auto) 0.0 TH/MM3 CBC Comment DIFF FINAL Differential Comment Blood Urea Nitrogen 13 MG/DL Creatinine 0.89 MG/DL Random Glucose 81 MG/DL Total Protein 6.1 GM/DL Albumin 2.4 GM/DL Calcium Level 8.3 MG/DL Alkaline Phosphatase 94 U/L Aspartate Amino Transf (AST/SGOT) 15 U/L Alanine Aminotransferase (ALT/SGPT) 19 U/L Total Bilirubin 0.4 MG/DL Sodium Level 130 MEQ/L Potassium Level 3.0 MEQ/L Chloride Level 91 MEQ/L Carbon Dioxide Level 30.7 MEQ/L Anion Gap 8 MEQ/L Estimat Glomerular Filtration Rate 87 ML/MIN Lactic Acid Level 1.8 mmol/L Differential Diagnosis Differential diagnosis includes fracture, dislocation, contusion, hematoma, hyponatremia, hypoalbuminemia, DVT, UTI, pneumonia, lung cancer, acute renal failure. Narrative Course IV was established, labs are drawn and sent, and the patient was placed on cardiac telemetry monitoring and continuous pulse oximetry monitoring. Chest x- ray and x-ray of the right foot was obtained. Ultrasound of the right lower extremity was ordered to rule out DVT. Ultrasound was negative for DVT. X-ray the right foot reveals no fracture. Chest x-ray reveals left lung pneumonia, I did compared to his previous x-rays in April, this pneumonia is new, may be obstructive from known history of lung cancer. The patient was recently in the hospital in rehabilitation, therefore, will be covered for healthcare acquired pneumonia with cefepime and Zithromax. Blood cultures have been sent to lab. Potassium is low at 3.0, was replaced orally. Blood culture is pending. Lactic acid is normal. White count is normal with increased neutrophils. The patient has [employer], therefore, [place] hospitalist were paged for 23 hour observation. Physician Communication Physician Communication The patient has [employer], therefore, [employer] [facility] hospitalists were paged for 23 hour observation. I discussed the patient Dr. Wright who agrees with 23 hour observation. Diagnosis Primary Impression: PNA (pneumonia) Qualified Codes: J18.9 - Pneumonia, unspecified organism Additional Impression: Edema of right foot Admitting Information Admitting Physician Requests: Observation Condition: Stable Diomedes Adame MD Jul 17, 2017 07:45
[2017-07-17] MEDS ORDERED: RANI300T PO (07:49)
[2017-07-17 08:02] LABS: AUTOMATED NEUTROPHIL # 8.8 TH/MM3 (1.8-7.7); BASOPHIL % 0.2 % (0.0-2.0); EOSINOPHIL % 0.5 % (0.0-4.0); HEMATOCRIT 25.1 % (39.0-51.0); HEMOGLOBIN 8.7 GM/DL (13.0-17.0); LYMPH % 1.3 % (9.0-44.0); LYMPHOCYTE # 0.1 TH/MM3 (1.0-4.8); MEAN CELL VOLUME 95.2 FL (80.0-100.0); MEAN CORPUSCULAR HEMOGLOBIN 33.1 PG (27.0-34.0); MEAN CORPUSCULAR HGB CONC 34.7 % (32.0-36.0); MEAN PLATELET VOLUME 7.2 FL (7.0-11.0); MONO % 8.2 % (0.0-8.0); MONOCYTE # 0.8 TH/MM3 (0-0.9); NEUT % 89.8 % (16.0-70.0); PLATELET COUNT 164 TH/MM3 (150-450); RED BLOOD COUNT 2.64 MIL/MM3 (4.50-5.90); RED CELL DISTRIBUTION WIDTH 18.8 % (11.6-17.2); WHITE BLOOD COUNT 9.8 TH/MM3 (4.0-11.0)
--- NOTE | 2017-07-17 08:13 | RADRPT ---
EXAM DATE/TIME: 07/17/2017 07:51 [facility] COMPARISON: No previous studies available for comparison. INDICATIONS : Right foot pain, bruising, and swelling. No trauma. MEDICAL HISTORY : Carcinoma, lung. Chronic obstructive pulmonary disease. Hypertension. SURGICAL HISTORY : None. ENCOUNTER: Initial ACUITY: 1 day PAIN SCORE: 5/10 LOCATION: Right foot. FINDINGS: Three view examination of the right foot demonstrates no soft tissue swelling, dislocation, or fractu re. The tarsal bones appear intact. The interphalangeal and metatarsophalangeal joints are intact. The calcaneus is intact. Bony mineralization is normal. CONCLUSION: 1. Unremarkable radiographs of the right foot. Cameron Lemus MD on July 17, 2017 at 8:10 Board Certified Radiologist. This report was verified electronically.
--- NOTE | 2017-07-17 08:16 | RADRPT ---
EXAM DATE/TIME: 07/17/2017 07:56 [facility] COMPARISON: CT PULMONARY ANGIOGRAM, April 05, 2017, 20:05. CHEST SINGLE AP, April 18, 2017, 4:32. INDICATIONS : Cough and congestion. MEDICAL HISTORY : Carcinoma, lung. Chronic obstructive pulmonary disease. Hypertension. SURGICAL HISTORY : None. ENCOUNTER: Initial ACUITY: 4 - 6 months PAIN SCORE: 0/10 LOCATION: Bilateral chest FINDINGS: Left midlung airspace consolidation. Resolution of her recent noted are interstitial and air space op acities in the right upper lobe. Cardiomediastinal contours are within normal limits. Bony thorax is intact. CONCLUSION: Left midlung zone airspace consolidation consistent with pneumonia. Recommend followup to resolution to exclude a post obstructive process. Cameron Lemus MD on July 17, 2017 at 8:11 Board Certified Radiologist. This report was verified electronically.
[2017-07-17 08:21] LABS: ALBUMIN 2.4 GM/DL (3.4-5.0); ALT (GPT) 19 U/L (12-78); AST (GOT) 15 U/L (15-37); BICARBONATE 30.7 MEQ/L (21.0-32.0); BLOOD UREA NITROGEN 13 MG/DL (7-18); CALCIUM 8.3 MG/DL (8.5-10.1); CHLORIDE 91 MEQ/L (98-107); CREATININE 0.89 MG/DL (0.60-1.30); GLOMERULAR FILTRATION RATE 87 ML/MIN (>89); GLUCOSE,RANDOM 81 MG/DL (74-106); SODIUM (NA) 130 MEQ/L (136-145)
[2017-07-17 08:24] LABS: ALKALINE PHOSPHATASE 94 U/L (45-117); TOTAL BILIRUBIN ADULT 0.4 MG/DL (0.2-1.0); TOTAL PROTEIN 6.1 GM/DL (6.4-8.2)
--- NOTE | 2017-07-17 08:25 | RADRPT ---
EXAM DATE/TIME: 07/17/2017 08:00 [facility] COMPARISON: No previous studies available for comparison. INDICATIONS : Right leg swelling. MEDICAL HISTORY : Hypertension. Chronic obstructive pulmonary disease. Benign prostatic hyperplasia, (BPH) Periphera l arterial disease. Depression. Anxiety. Lung cancer. Radiation therapy. Chemotherapy. Pneumonia. Kandice sles. SURGICAL HISTORY : Iliac bypass/stent. Bilateral cataract removal. Bilateral lens replacement. ENCOUNTER: Initial ACUITY: 1 day PAIN SCORE: 0/10 LOCATION: Right leg. TECHNIQUE: Venous ultrasound of the leg was performed from the inguinal ligament to the proximal calf. Real-tamara e, color Doppler and spectral tracing, compression and augmentation techniques were used. FINDINGS: There is normal compressibility of the deep venous system from the inguinal region to the proximal ca lf. No echogenic clot is seen in the lumen of the common femoral, femoral, popliteal, and posterior tibial veins. There is a normal response of the venous system to proximal and distal augmentation an d respiration. CONCLUSION: No evidence of deep venous thrombosis within the right lower extremity. Rodrigo Michel MD on July 17, 2017 at 8:22 Board Certified Radiologist. This report was verified electronically.
[2017-07-17] MEDS ORDERED: AZITHROMYCIN INJ 500 MG in SODIUM CHLOR 0.9% 250 ML INJ 250 ML IV ONE (09:00)
[2017-07-17] MEDS ORDERED: POTASSIUM CHLORIDE 20 MEQ CONTROLLED RELEASE TAB PO ONE (09:00)
[2017-07-17] MEDS ORDERED: RESP: ALBUTEROL 2.5 MG/IPRATROPIUM 0.5 MG NEB (SCH) NEB ONE (09:00)
[2017-07-17] MEDS ORDERED: CEFEPIME INJ 2,000 MG in SODIUM CHLORIDE 0.9% INJ 100 ML IV ONE (09:00)
[2017-07-17] MEDS: AZITHROMYCIN INJ 500 MG in SODIUM CHLOR 0.9% 250 ML INJ 250 ML IV SCH (11:38)
[2017-07-17] MEDS ORDERED: ACETAMINOPHEN 325 MG TAB PO PRN (15:00)
[2017-07-17] MEDS: ACETAMINOPHEN/HYDROcodone 325 MG/7.5 MG TAB PO PRN ×2 (15:04→21:45)
--- NOTE | 2017-07-17 15:09 | HHI.HP ---
[facility] Admission Diagnosis left sided pneumonia, immunocompromise lung cancer patient Diagnoses: Chief Complaint: Right foot swelling, generalized weakness Travel History International Travel<30 Days: No Contact w/Intl Traveler <30 Da: No Traveled to Known Affected Are: No History of Present Illness Written by Navdeep Mckenna, acting as scribe for Dr. Wright on 07/17/17 at 15:08. Patient is a 61-year-old male with primary medical history of lung cancer stage III, HTN, CAD, COPD who came into the hospital for generalized weakness, right foot swelling. Patient states that he was getting into the shower today when he noticed that his right foot is really swollen and discolored. He got nervous about it. Supposedly today he is to go for a PET scan scheduled. He follows with radiology oncology Dr. Gilliam in delay in. States that he did want chemotherapy treatment with Dr. Stark but was upset with the doctor that he did not follow through. Patient states that he has on and off pneumonia that is not going away and it concerns him. Discussed extensively with patient that because he is immunocompromised he is at higher risk for elyssa pneumonia. Complaints of pain 8/10, back and neck area, aggravated by movement, states it is his arthritis, gets relief with Tylenol 3. Denies SOB/ dyspnea. Reports cough. Denies chest pain, palpitations, headaches, dizziness. Denies fevers, chills, n/v/d. Denies hematuria, dysuria. Review of Systems Constitutional: COMPLAINS OF: Fatigue, Weight loss Respiratory: COMPLAINS OF: Cough, Shortness of breath Cardiovascular: COMPLAINS OF: Dyspnea on Exertion, Lower Extremity Edema Except as stated in HPI: all other systems reviewed are Neg Past Family Social History Past Medical History Cancer stage III HTN CAD COPD Tobacco use Past Surgical History Iliac surgery, abdominal surgery Reported Medications Reported Meds & Active Scripts Active Sodium Chloride 1 Gram Tab 1 Gm PO DAILY Aspirin DR (Aspirin) 81 Mg Tabdr 81 Mg PO DAILY Oxygen (O2) Device Liter RADHA.CANULA CONTINUOUS Oxygen Concentrator Portable Gaseous 2 L/min via Nasal Canula Continuous For 99 months Walker with Front Wheels (Device) 1 Mis Mis Ea .ROUTE DIRECTED Prednisone 20 Mg Tab 20 Mg PO BID Take 1 tab twice a day for 3 days then 1 tab daily for 4 days [Budeson-Formot 160-4.5 Mcg Inh] 60 PUFF Aero 1 Puff INH Q12HR Lisinopril 5 Mg Tab 5 Mg PO DAILY Cardizem CD 24 HR (Diltiazem CD 24 HR) 240 Mg Caper 240 Mg PO DAILY Lopressor (Metoprolol Tartrate) 50 Mg Tab 50 Mg PO Q12HR Furosemide 20 Mg Tab 40 Mg PO DAILY Levaquin (Levofloxacin) 750 Mg Tablet 750 Mg PO Q24H Reported Ranitidine (Ranitidine HCl) 300 Mg Tab Unknown Dose PO DAILY Centrum (Multiple Vitamins W/ Minerals) 1 Chew 1 Tab CHEW DAILY B12 (Cyanocobalamin) 1,000 Mcg Tab Anoro Ellipta Inh (Umeclidinium/Vilanterol) 62.5-25 Mcg/Act Aero 1 Puff INH Lovastatin 10 Mg Tab 10 Mg PO DAILY Clopidogrel (Clopidogrel Bisulfate) 75 Mg Tab 75 Mg PO DAILY Allergies: Coded Allergies: No Known Allergies (Verified Allergy, Unknown, 07/17/17) Active Ordered Medications Current Medications Medications (Trade) Dose Ordered Sig/Benton Route Start Time Stop Time Status Last Admin (Ecotrin Ec) 81 mg DAILY PO 07/18/17 09:00 (Plavix) 75 mg DAILY PO 07/18/17 09:00 (Cardizem Cd) 240 mg DAILY PO 07/18/17 09:00 (Lasix) 40 mg DAILY PO 07/18/17 09:00 (Prinivil) 5 mg DAILY PO 07/18/17 09:00 (Pravachol) 10 mg DAILY PO 07/18/17 09:00 (Lopressor) 50 mg Q12HR PO 07/17/17 21:00 (Theragran M Tab) 1 tab DAILY PO 07/18/17 09:00 (Deltasone) 20 mg BID PO 07/17/17 21:00 (Sodium Chloride) 1 gm DAILY PO 07/18/17 09:00 (Symbicort 160-4.5 Mcg Inh) 1 puff Q12HR INH 07/17/17 21:00 Cefepime HCl 2000 mg/Sodium Chloride 100 ml @ 200 mls/hr Q8H IV 07/17/17 18:00 Azithromycin 500 mg/Sodium Chloride 250 ml @ 250 mls/hr Q24H IV 07/17/17 11:00 07/17/17 11:38 (Nokomis 5-325 Mg) 1 tab Q4H PRN PO 07/17/17 15:00 (Nokomis 7.5-325 Mg) 1 tab Q4H PRN PO 07/17/17 15:00 07/17/17 15:04 (Tylenol) 650 mg Q4H PRN PO 07/17/17 15:00 Family History Father of [place] at age of 52 Mother has lung mass Social History Occasional alcohol use Current tobacco use, 5 cigarettes to 1 pack per day but states he has slowed down Illicit drug use in the past, states he "dabbled with heroin and smoked dope" Physical Exam Vital Signs Vital Signs Date Time Temp Pulse Resp B/P (MAP) Pulse Ox O2 Delivery O2 Flow Rate FiO2 07/17/17 14:07 98.4 96 18 131/68 (89) 98 07/17/17 13:50 07/17/17 11:38 93 17 123/62 (82) 97 Nasal Cannula 2.00 07/17/17 09:33 80 17 108/64 (79) 97 Nasal Cannula 2.00 07/17/17 07:40 88 16 133/78 (96) 92 Physical Exam GENERAL: This is a thin appearing, appears older than stated age, in no apparent distress. SKIN: Warm and dry. Right foot ecchymosis, rt knee ecchymosis. HEAD: Atraumatic. Normocephalic. No temporal or scalp tenderness. EYES: Pupils equal round and reactive. Extraocular motions intact. No scleral icterus. No injection or drainage. ENT: Nose without bleeding. Throat without erythema. Uvula midline. Airway patent. NECK: Trachea midline. CARDIOVASCULAR: Regular rate and rhythm without murmurs, gallops, or rubs. RESPIRATORY: Bronchial breath sounds. GASTROINTESTINAL: Abdomen soft, non-tender, nondistended. Bowel sounds active 4 MUSCULOSKELETAL: Extremities without clubbing, cyanosis. Bilateral lower extremity edema +2 right greater than the left. NEUROLOGICAL: Awake and alert. Oriented to place, person Cranial nerves II through XII intact. Slow speech. Laboratory Laboratory Tests Test 07/17/17 07:50 White Blood Count 9.8 Red Blood Count 2.64 Hemoglobin 8.7 Hematocrit 25.1 Mean Corpuscular Volume 95.2 Mean Corpuscular Hemoglobin 33.1 Mean Corpuscular Hemoglobin Concent 34.7 Red Cell Distribution Width 18.8 Platelet Count 164 Mean Platelet Volume 7.2 Neutrophils (%) (Auto) 89.8 Lymphocytes (%) (Auto) 1.3 Monocytes (%) (Auto) 8.2 Eosinophils (%) (Auto) 0.5 Basophils (%) (Auto) 0.2 Neutrophils # (Auto) 8.8 Lymphocytes # (Auto) 0.1 Monocytes # (Auto) 0.8 Eosinophils # (Auto) 0.0 Basophils # (Auto) 0.0 CBC Comment DIFF FINAL Differential Comment Blood Urea Nitrogen 13 Creatinine 0.89 Random Glucose 81 Total Protein 6.1 Albumin 2.4 Calcium Level 8.3 Alkaline Phosphatase 94 Aspartate Amino Transf (AST/SGOT) 15 Alanine Aminotransferase (ALT/SGPT) 19 Total Bilirubin 0.4 Sodium Level 130 Potassium Level 3.0 Chloride Level 91 Carbon Dioxide Level 30.7 Anion Gap 8 Estimat Glomerular Filtration Rate 87 Lactic Acid Level 1.8 Date/Time Source Procedure Growth Status 07/17/17 09:25 Blood Peripheral Aerobic Blood Culture Pending Received 07/17/17 09:25 Blood Peripheral Anaerobic Blood Culture Pending Received Result Diagram: 07/17/17 0750 07/17/17 0750 Imaging Last Impressions Lower Extremity Ultrasound 07/17/17 0000 Signed Impressions: Service Date/Time: Monday, July 17, 2017 08:00 - CONCLUSION: No evidence of deep venous thrombosis within the right lower extremity. Rodrigo Michel MD Foot X-Ray 07/17/17 0000 Signed Impressions: Service Date/Time: Monday, July 17, 2017 07:51 - CONCLUSION: 1. Unremarkable radiographs of the right foot. Cameron Lemus MD Chest X-Ray 07/17/17 0000 Signed Impressions: Service Date/Time: Monday, July 17, 2017 07:56 - CONCLUSION: Left midlung zone airspace consolidation consistent with pneumonia. Recommend followup to resolution to exclude a post obstructive process. MD Damon Hernández VTE Risk Assessment Caprini VTE Risk Assessment: Mod/High Risk (score >= 2) Caprini Risk Assessment Model Point Value = 1 Point Value = 2 Point Value = 3 Point Value = 5 Age 41-60 Minor surgery BMI > 25 kg/m2 Swollen legs Varicose veins or History of unexplained or recurrent spontaneous Oral contraceptives or hormone replacement Sepsis (< 1 month) Serious lung disease, including pneumonia (< 1 month) Abnormal pulmonary function Acute myocardial infarction Congestive heart failure (< 1 month) History of inflammatory bowel disease Medical patient at bed rest Age 61-74 Arthroscopic surgery Major open surgery (> 45 min) Laparoscopic surgery (> 45 min) Malignancy Confined to bed (> 72 hours) Immobilizing plaster cast Central venous access Age >= 75 History of VTE Family history of VTE Factor V Leiden Prothrombin [id number] Lupus anticoagulant Anticardiolipin antibodies Elevated serum homocysteine Heparin-induced thrombocytopenia Other congenital or acquired thrombophilia Stroke (< 1 month) Elective arthroplasty Hip, pelvis, or leg fracture Acute spinal cord injury (< 1 month) Prophylaxis Regimen Total Risk Factor Score Risk Level Prophylaxis Regimen 0-1 Low Early ambulation 2 Moderate Order ONE of the following: *Sequential Compression Device (SCD) *Heparin 5000 units SQ BID 3-4 Higher Order ONE of the following medications: *Heparin 5000 units SQ TID *Enoxaparin/Lovenox 40 mg SQ daily (WT < 150 kg, CrCl > 30 mL/min) *Enoxaparin/Lovenox 30 mg SQ daily (WT < 150 kg, CrCl > 10-29 mL/min) *Enoxaparin/Lovenox 30 mg SQ BID (WT < 150 kg, CrCl > 30 mL/min) AND/OR *Sequential Compression Device (SCD) 5 or more Highest Order ONE of the following medications: *Heparin 5000 units SQ TID (Preferred with Epidurals) *Enoxaparin/Lovenox 40 mg SQ daily (WT < 150 kg, CrCl > 30 mL/min) *Enoxaparin/Lovenox 30 mg SQ daily (WT < 150 kg, CrCl > 10-29 mL/min) *Enoxaparin/Lovenox 30 mg SQ BID (WT < 150 kg, CrCl > 30 mL/min) AND *Sequential Compression Device (SCD) Assessment and Plan Problem List: (1) PNA (pneumonia) ICD Code: J18.9 - Pneumonia, unspecified organism (2) Lung cancer ICD Code: C34.90 - Malignant neoplasm of unspecified part of unspecified bronchus or lung (3) Edema of right foot ICD Code: R60.0 - Localized edema Status: Acute (4) Tobacco use ICD Code: Z72.0 - Tobacco use Assessment and Plan Patient is a 61-year-old male with primary medical history of lung cancer stage III, HTN, CAD, COPD who came into the hospital for generalized weakness, right foot swelling. Community-acquired pneumonia Underlying COPD Lung cancer stage III status post radiation, 20 radiations done -Chest x-ray showed left midlung zone airspace consolidation consistent with pneumonia. Recommended follow-up to resolution to exclude a postobstructive process. -Continue prednisone twice daily, Symbicort twice daily -Duo nebs scheduled and as needed -IV azithromycin, cefepime IV -O2 facial mask or nasal cannula, keep O2 sat greater than 90%. -Monitor respiratory status Debility Lung cancer status post radiation -Physical therapy eval and treat -Palliative care consult for goals of care HTN CAD HLD -Continue metoprolol 50 mg every 12 hours, lisinopril 5 mg daily, Lasix 40 mg daily, Cardizem 240 mg daily, Plavix, aspirin, pravastatin 10 mg daily -Monitor BP trend Hyponatremia, chronic -Continue sodium tabs daily -Monitor sodium level DVT prop Lovenox This note was transcribed by JAVID Clement . I, Dr. Queenie Wright personally performed the history, physical exam, and medical decision making; and confirmed the accuracy of the information in the transcribed note. Authenticated by Dr. Queenie Wright on 07/17/17 at 15:08. Code Status Full code Discussed Condition With Patient, nursing, case management Problem Qualifiers (1) PNA (pneumonia): Qualified Codes: J18.9 - Pneumonia, unspecified organism Navdeep Barrios Jul 17, 2017 15:09 Queenie Wright MD Jul 17, 2017 15:17
--- NOTE | 2017-07-17 16:59 | PD.CONS ---
Consult Service Palliative Care Consult Requested By Dr. Wright/ Bala Sethi . Primary Care Physician Dr. Braden Rodriguez . Reason for Consultation a. To assist with evaluation and management of symptoms including: Pain, Shortness of breath b. To assist medical decision maker(s) with: better understanding of current medical conditions; weighing benefits/burdens of medical treatment options; making medical treatment decisions. HPI History of Present Illness Mr Adams is a 61 years old male with a significant medical history of lung cancer s/p radiation, COPD, hypertension, coronary artery disease and tobacco use. Patient presented to the ER today with complaints of generalized malaise and right foot swelling and ecchymosis.Patient was diagnosed with lung cancer in November, and he underwent radiation which he completed mid to late June. Patient was recently admitted at [facility] in April, for increased shortness of breath, generalized weakness, and decreased oral intake and was treated for bilateral pneumonia. At that time patient had undergone 5 radiation treatments. Patient reports that he has completed all 20 rounds of radiation that were recommended. Patient was scheduled to undergo PET scan evaluation today by his oncologist Dr. Will. He is known to palliative care and during his last hospitalization in April 2017, patient made himself a DNR. ER course: * Vital signs: Pulse 88, respiration 16, blood pressure 133/78, O2 saturation 92 % on room air * Chest x-ray revealed the left midlung zone airspace consolidation consistent with pneumonia. * Foot x-ray revealed unremarkable radiographs of the right foot. * Lower extremity ultrasound revealed no evidence of deep venous thrombosis. * Laboratory workup revealing WBC 9.8, hemoglobin 8.7, hematocrit 25.1, platelet count 164, sodium 130, potassium 3.0, BUN/creatinine 13/0.89, lactic acid 1.8, total protein 6.1, albumin 2.4. * [facility] Physical therapy consulted for evaluation and treatment. Palliative care consulted to assist with establishing goals of care. Patient seen and examined in the ER. Patient is alert,oriented to self, place and situation. Obtained psychosocial history and past medical history including event leading to this ER visit. Patient appears to have insight regarding his medical condition and appears to be able to weight benefits and disadvantages of treatment. Addressed code status, discussed risks, benefits and limitations of CPR given his multiple comorbidities. Patient elected DNR/DNI. Patient stated that given that he has lung cancer, he probably will not do well if he ends up on life support and he blames himself for his current condition. Patient said, "I brought this to myself and knowing that i have lung cancer, i still smoke cigarettes." Patient mentioned that he would not want to end up being in a vegetative state or end up with a tracheostomy. Broached hospice. Patient said at this time he is not ready for hospice, he is eager to have a PET scan and find out," how much his tumor has shrunk". Patient would like to have chemotherapy if his oncologist offers it to him. . Function/Cognitive Trajectory Patient resides at [facility] (transitional home). He is independent of all his ADLs and is able to verbalize his needs. Patient endorsing weight loss but unable to quantify. . Review of Systems Constitutional: COMPLAINS OF: Weight loss, Generalized weakness, DENIES: Fever Eyes: DENIES: Eye inflammation Ears, nose, mouth, throat: DENIES: Nasal discharge Respiratory: COMPLAINS OF: Cough, Wheezing, Shortness of breath Cardiovascular: COMPLAINS OF: Dyspnea on Exertion, Lower Extremity Edema, DENIES: Chest pain Gastrointestinal: COMPLAINS OF: Difficulty Swallowing, DENIES: Diarrhea, Nausea , Vomiting Genitourinary: DENIES: Urinary incontinence Musculoskeletal: COMPLAINS OF: Decreased range of motion Hematologic/Lymphatics: COMPLAINS OF: Bruising Neurologic: DENIES: Headache Psychiatric: DENIES: Confusion, Depression Past Family Social History Coded Allergies: No Known Allergies (Verified Allergy, Unknown, 07/17/17) Past Medical History Lung cancer stage III s/p radiation Hypertension Coronary artery disease COPD Tobacco use . Past Surgical History -Atherectomy of the left anterior descending with a bare-metal stent in 2013. -Abdominal Surgery . Reported Medications Sodium Chloride 1 Gram Tab 1 Gm PO DAILY Aspirin DR (Aspirin) 81 Mg Tabdr 81 Mg PO DAILY Oxygen (O2) Device Liter RADHA.CANULA CONTINUOUS Walker with Front Wheels (Device) 1 Mis Mis Ea .ROUTE DIRECTED Prednisone 20 Mg Tab 20 Mg PO BID [Budeson-Formot 160-4.5 Mcg Inh] 60 PUFF Aero 1 Puff INH Q12HR Lisinopril 5 Mg Tab 5 Mg PO DAILY Cardizem CD 24 HR (Diltiazem CD 24 HR) 240 Mg Caper 240 Mg PO DAILY Lopressor (Metoprolol Tartrate) 50 Mg Tab 50 Mg PO Q12HR Furosemide 20 Mg Tab 40 Mg PO DAILY Levaquin (Levofloxacin) 750 Mg Tablet 750 Mg PO Q24H Ranitidine (Ranitidine HCl) 300 Mg Tab Unknown Dose PO DAILY Centrum (Multiple Vitamins W/ Minerals) 1 Chew 1 Tab CHEW DAILY B12 (Cyanocobalamin) 1,000 Mcg Tab Anoro Ellipta Inh (Umeclidinium/Vilanterol) 62.5-25 Mcg/Act Aero 1 Puff INH Lovastatin 10 Mg Tab 10 Mg PO DAILY Clopidogrel (Clopidogrel Bisulfate) 75 Mg Tab 75 Mg PO DAILY . Current Medications Medications (Trade) Dose Ordered Sig/Benton Route Start Time Stop Time Status Last Admin (Ecotrin Ec) 81 mg DAILY PO 07/18/17 09:00 (Plavix) 75 mg DAILY PO 07/18/17 09:00 (Cardizem Cd) 240 mg DAILY PO 07/18/17 09:00 (Lasix) 40 mg DAILY PO 07/18/17 09:00 (Prinivil) 5 mg DAILY PO 07/18/17 09:00 (Pravachol) 10 mg DAILY PO 07/18/17 09:00 (Lopressor) 50 mg Q12HR PO 07/17/17 21:00 (Theragran M Tab) 1 tab DAILY PO 07/18/17 09:00 (Deltasone) 20 mg BID PO 07/17/17 21:00 (Sodium Chloride) 1 gm DAILY PO 07/18/17 09:00 (Symbicort 160-4.5 Mcg Inh) 1 puff Q12HR INH 07/17/17 21:00 Cefepime HCl 2000 mg/Sodium Chloride 100 ml @ 200 mls/hr Q8H IV 07/17/17 18:00 Azithromycin 500 mg/Sodium Chloride 250 ml @ 250 mls/hr Q24H IV 07/17/17 11:00 07/17/17 11:38 ([place] 5-325 Mg) 1 tab Q4H PRN PO 07/17/17 15:00 ([place] 7.5-325 Mg) 1 tab Q4H PRN PO 07/17/17 15:00 07/17/17 15:04 (Tylenol) 650 mg Q4H PRN PO 07/17/17 15:00 (Lovenox Inj) 40 mg Q24H SQ 07/17/17 17:00 Family History Father -he had a heart attack at age 52 Mother from CHF complications Sister in 1970 from a motor vehicle accident . Substance Use Tobacco: Current smoker. Alcohol: Occasional alcohol consumption Prescription med abuse: Denies Illicits: History of substance abuse-marijuana years ago . Psychosocial History Patient was born and raised in [place]. He left [place] at the age of 20. Patient moved to [place] in 1975. Patient has a 2 years college degree in [employer]. Patient worked for an [employer] as well as a [employer] company. Patient was and twice. He never had children. . Spiritual/Cultural Factors No alevism affiliation . Health Care Surrogate: Completed, but not made available Date completed: 04/08/2017 . Health Care Surrogate(s): HCS- (Long time friend-15 yrs) Kay Rizvi [phone] Alternate [facility]- Cousin- Dahiana Mayorga [phone] . Ethical and Legal Issues None identified at this time. . Physical Exam Vital Signs Date Time Temp Pulse Resp B/P (MAP) Pulse Ox O2 Delivery O2 Flow Rate FiO2 07/17/17 16:04 18 07/17/17 15:22 98.1 107 16 103/58 (73) 98 07/17/17 14:07 98.4 96 18 131/68 (89) 98 07/17/17 13:50 07/17/17 11:38 93 17 123/62 (82) 97 Nasal Cannula 2.00 07/17/17 09:33 80 17 108/64 (79) 97 Nasal Cannula 2.00 07/17/17 07:40 88 16 133/78 (96) 92 Exam CONSTITUTIONAL/GENERAL: This is an adequately nourished patient, in no apparent distress. TUBES/LINES/DRAINS: PIV SKIN: No jaundice, rashes, or lesions. Ecchymoses on right pedal. Bruising to left hand. Skin temperature appropriate. Not diaphoretic. HEAD: Atraumatic. Normocephalic. EYES: Pupils equal and round and reactive. Extraocular motions intact. No scleral icterus. No injection or drainage. Fundi not examined. ENT: Hearing grossly normal. Nose without bleeding or purulent drainage. NECK: Trachea midline. Supple, nontender. CARDIOVASCULAR: Regular rate and rhythm without murmurs, gallops, or rubs. No JVD. Peripheral pulses symmetric. RESPIRATORY/CHEST: Symmetric, unlabored respirations. Breath sounds diminished. expiratory wheezing , No rales, or rhonchi. GASTROINTESTINAL: Abdomen soft, non-tender, nondistended. No guarding. Bowel sounds present. GENITOURINARY: Without palpable bladder distension. Voids in urinal MUSCULOSKELETAL: Extremities without clubbing, cyanosis, or edema. No joint tenderness or effusion noted. No calf tenderness. No mottling or clubbing. NEUROLOGICAL: Awake and alert. Motor and sensory grossly within normal limits. Follows commands. Moves all extremities. PSYCHIATRIC: No obvious anxiety/depression. no apparent hallucinations or other psychotic thought process. Diagnostic Tests Laboratory Laboratory Tests Test 07/17/17 07:50 White Blood Count 9.8 TH/MM3 (4.0-11.0) Red Blood Count 2.64 MIL/MM3 (4.50-5.90) Hemoglobin 8.7 GM/DL (13.0-17.0) Hematocrit 25.1 % (39.0-51.0) Mean Corpuscular Volume 95.2 FL (80.0-100.0) Mean Corpuscular Hemoglobin 33.1 PG (27.0-34.0) Mean Corpuscular Hemoglobin Concent 34.7 % (32.0-36.0) Red Cell Distribution Width 18.8 % (11.6-17.2) Platelet Count 164 TH/MM3 (150-450) Mean Platelet Volume 7.2 FL (7.0-11.0) Neutrophils (%) (Auto) 89.8 % (16.0-70.0) Lymphocytes (%) (Auto) 1.3 % (9.0-44.0) Monocytes (%) (Auto) 8.2 % (0.0-8.0) Eosinophils (%) (Auto) 0.5 % (0.0-4.0) Basophils (%) (Auto) 0.2 % (0.0-2.0) Neutrophils # (Auto) 8.8 TH/MM3 (1.8-7.7) Lymphocytes # (Auto) 0.1 TH/MM3 (1.0-4.8) Monocytes # (Auto) 0.8 TH/MM3 (0-0.9) Eosinophils # (Auto) 0.0 TH/MM3 (0-0.4) Basophils # (Auto) 0.0 TH/MM3 (0-0.2) CBC Comment DIFF FINAL Differential Comment Blood Urea Nitrogen 13 MG/DL (7-18) Creatinine 0.89 MG/DL (0.60-1.30) Random Glucose 81 MG/DL (74-106) Total Protein 6.1 GM/DL (6.4-8.2) Albumin 2.4 GM/DL (3.4-5.0) Calcium Level 8.3 MG/DL (8.5-10.1) Alkaline Phosphatase 94 U/L (45-117) Aspartate Amino Transf (AST/SGOT) 15 U/L (15-37) Alanine Aminotransferase (ALT/SGPT) 19 U/L (12-78) Total Bilirubin 0.4 MG/DL (0.2-1.0) Sodium Level 130 MEQ/L (136-145) Potassium Level 3.0 MEQ/L (3.5-5.1) Chloride Level 91 MEQ/L (98-107) Carbon Dioxide Level 30.7 MEQ/L (21.0-32.0) Anion Gap 8 MEQ/L (5-15) Estimat Glomerular Filtration Rate 87 ML/MIN (>89) Lactic Acid Level 1.8 mmol/L (0.4-2.0) Result Diagram: 07/17/17 0750 07/17/17 0750 Microbiology Microbiology Date/Time Source Procedure Growth Status 07/17/17 09:25 Blood Peripheral Aerobic Blood Culture Pending Received 07/17/17 09:25 Blood Peripheral Anaerobic Blood Culture Pending Received 07/17/17 09:20 Blood Peripheral Aerobic Blood Culture Pending Received 07/17/17 09:20 Blood Peripheral Anaerobic Blood Culture Pending Received Imaging Last Impressions Lower Extremity Ultrasound 07/17/17 0000 Signed Impressions: Service Date/Time: Monday, July 17, 2017 08:00 - CONCLUSION: No evidence of deep venous thrombosis within the right lower extremity. Rodrigo Michel MD Foot X-Ray 07/17/17 0000 Signed Impressions: Service Date/Time: Monday, July 17, 2017 07:51 - CONCLUSION: 1. Unremarkable radiographs of the right foot. Cameron Lemus MD Chest X-Ray 3/16/18 0000 Signed Impressions: Service Date/Time: Monday, July 17, 2017 07:56 - CONCLUSION: Left midlung zone airspace consolidation consistent with pneumonia. Recommend followup to resolution to exclude a post obstructive process. Cameron Lemus MD Patient/Family Conference Family Conference Location: Bedside Issues Discussed: * Palliative care role, purpose, approach * Additional medical, psychosocial, and spiritual history * Patients general health, functional status, and cognitive changes in the months leading up to the current hospitalization * Patient/family understanding of the current medical problems * Patient/family understanding of prognosis * Patients goals of care as best understood from advance directives and/or conversations and/or values * Current medical treatment options and benefits/burdens of those options * Likely scenarios comparing ongoing aggressive care with a transition to comfort measures only * Questions answered to the best of my ability * Introduced hospice philosophy and benefits * Palliative care contact information provided . Assessment and Plan Disease Oriented Problem List: (1) PNA (pneumonia) (2) Lung cancer (3) Tobacco abuse (4) Edema of right foot Symptom Scale: (1) Pain 0-10 Scale: Unable to quantify Comment: Edema to lower extremity. . (2) Shortness of breath Comment: Multifactorial. Hx of lung cancer and recent CXR revealed left lung pneumonia. . Pertinent Non-Medical Issues Psychosocial:Patient was born and raised in [place]. He left [place] at the age of 20. Patient moved to [place] in 1975. Patient has a 2 years college degree in [employer] technology. 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 Patient was and twice. He never had children. Spiritual:No alevism affiliation Legal:Patient has a HCS form signed and completed a Community DNR last hospitalization, Ethical issues impacting care:None identified at this time . Important Contacts [facility]- (Long time friend-15 yrs) Kay Rizvi [phone] Alternate [facility]- Cousin- Dahiana Mayorga [phone] . Prognosis Mr Adams is a 61 years old male with a significant medical history of lung cancer s/p radiation, COPD, hypertension, coronary artery disease and tobacco use. Patient presented to the ER today with complaints of generalized malaise and right foot swelling and ecchymosis.Patient was diagnosed with lung cancer in November, and he underwent radiation which he completed mid to late June. Chest X Ray 07/17/17 revealed left lung pneumonia. Given ongoing comorbidities and recent hospitalization, patient is at risk for further complications, deterioration and decline. . Code Status: No Code Plan PLAN: Legal decision maker: Patient is currently able to participate in medical decision making. In the event that he is capacitated patient has a health care surrogate Kay Rizvi and an alternate HCS Dahiana Mayorga. Goals: Aggressive short of no code. CODE STATUS: No Code DNR/DNI SYMPTOMS: * Pain: Patient came in with an edematous bilateral lower extremities. Currently denies pain. Patient is on Hydrocodone/acetaminophen 7.5/325 q 4 hrs prn. Currently denies pain. * Shortness of breath:Multifactorial. Patient is a current smoker and is on home oxygen. Hx of lung cancer and recent CXR revealed left lung pneumonia. Patient was started on antibiotics. Patient is also on Prednisone, Symbicort. Recommending Duonebs prn for wheezing/sob Palliative care will continue to follow the patient during hospital course as condition evolves, to assist patient/decision-maker with understanding of their medical conditions, weighing benefits/burdens of treatment options, for clarification of goals of treatment. Additionally will assist with any symptoms of palliative concern Thank you for the opportunity to participate in the care of Mr. Adams. Attestation To help prompt me to consider important information that might be impacting today's encounter and assessment, information from prior notes written by myself or my colleagues may have been "brought forward" into today's note. My signature on this note, however, is an attestation that I personally performed the exam, history, and/or decision-making noted today, and, unless otherwise indicated, the interactions with patient, family, and staff as well as the review of records all occurred today. I also attest that the listed assessment and stated plan reflect my best clinical judgment today based on the combination of historical information, prior notes, and today's exam/ interactions. When time spent is documented, it refers only to time spent today by the signer, or if indicated, combined time spent today by collaborating physician/nurse practitioner. Randa Tenorio Jul 17, 2017 16:59
[2017-07-17] MEDS: CEFEPIME INJ 2,000 MG in SODIUM CHLORIDE 0.9% INJ 100 ML IV SCH (18:07)
[2017-07-17] MEDS: ENOXAPARIN SODIUM 40 MG/0.4 ML SYRINGE SQ SCH (18:07)
[2017-07-17 18:35] LABS: BILIRUBIN, URINE NEG (NEG); BLOOD, URINE NEG (NEG); GLUCOSE,URINE NEG (NEG); HYALINE CAST, URINE 1 /lpf (RARE); KETONE, URINE NEG (NEG); NITRITE,URINE NEG (NEG); URINE COLOR YELLOW (YELLW/STRAW); URINE LEUKOCYTE ESTERASE NEG (NEG)
[2017-07-17] MEDS: METOPROLOL TARTRATE 50 MG TAB PO SCH (21:45)
[2017-07-17] MEDS: BUDESONIDE-FORMOTEROL 160/4.5 MCG INHALER INH SCH (21:45)
[2017-07-17] MEDS: predniSONE 20 MG TAB PO SCH (21:45)
[2017-07-18] MEDS: CEFEPIME INJ 2,000 MG in SODIUM CHLORIDE 0.9% INJ 100 ML IV SCH ×4 (01:36→23:20)
[2017-07-18 04:04] VITALS: BP 140/85; PULSE 86; RESP 18; TEMP 98.5; O2SAT 95
[2017-07-18 08:00] VITALS: BP 157/76; PULSE 90; RESP 20; TEMP 98.2; O2SAT 99
[2017-07-18] MEDS ORDERED: RESP: ALBUTEROL 2.5 MG/IPRATROPIUM 0.5 MG NEB (PRN) NEB (09:00)
[2017-07-18] MEDS: BUDESONIDE-FORMOTEROL 160/4.5 MCG INHALER INH SCH ×2 (09:00→23:20)
--- NOTE | 2017-07-18 09:03 | HHI.PR ---
Subjective Remarks The patient is in bed he appears chronically ill. Trying to eat. Not much appetite. Not coughing much. Feels very tired. No nausea or vomiting no diarrhea constipation. Objective Vitals Vital Signs Date Time Temp Pulse Resp B/P (MAP) Pulse Ox O2 Delivery O2 Flow Rate FiO2 07/18/17 04:04 98.5 86 18 140/85 (103) 95 07/17/17 23:59 98.8 80 18 134/78 (96) 96 07/17/17 20:57 98.7 100 18 114/71 (85) 97 07/17/17 16:04 18 07/17/17 15:22 98.1 107 16 103/58 (73) 98 07/17/17 14:07 98.4 96 18 131/68 (89) 98 07/17/17 13:50 07/17/17 11:38 93 17 123/62 (82) 97 Nasal Cannula 2.00 07/17/17 09:33 80 17 108/64 (79) 97 Nasal Cannula 2.00 I/O 07/17/17 07/17/17 07/17/17 07/18/17 07/18/17 07/18/17 07:00 15:00 23:00 07:00 15:00 23:00 Output Total 200 ml Balance -200 ml Output Urine Total 200 ml Result Diagram: 07/17/17 0750 07/17/17 0750 Imaging Last Impressions Lower Extremity Ultrasound 07/17/17 0000 Signed Impressions: Service Date/Time: Monday, July 17, 2017 08:00 - CONCLUSION: No evidence of deep venous thrombosis within the right lower extremity. Rodrigo Michel MD Foot X-Ray 07/17/17 0000 Signed Impressions: Service Date/Time: Monday, July 17, 2017 07:51 - CONCLUSION: 1. Unremarkable radiographs of the right foot. Cameron Lemus MD Chest X-Ray 07/17/17 0000 Signed Impressions: Service Date/Time: Monday, July 17, 2017 07:56 - CONCLUSION: Left midlung zone airspace consolidation consistent with pneumonia. Recommend followup to resolution to exclude a post obstructive process. Cameron Lemus MD Objective Remarks GENERAL: This is a thin appearing, appears older than stated age, in no apparent distress. SKIN: Warm and dry. Right foot ecchymosis, rt knee ecchymosis. HEAD: Atraumatic. Normocephalic. No temporal or scalp tenderness. CARDIOVASCULAR: Regular rate and rhythm without murmurs, gallops, or rubs. RESPIRATORY: Bronchial breath sounds. GASTROINTESTINAL: Abdomen soft, non-tender, nondistended. Bowel sounds active 4 MUSCULOSKELETAL: Extremities without clubbing, cyanosis. Bilateral lower extremity edema +2 right greater than the left. NEUROLOGICAL: Awake and alert. Oriented to place, person Cranial nerves II through XII intact. Slow speech. A/P Problem List: (1) PNA (pneumonia) ICD Code: J18.9 - Pneumonia, unspecified organism (2) Lung cancer ICD Code: C34.90 - Malignant neoplasm of unspecified part of unspecified bronchus or lung (3) Edema of right foot ICD Code: R60.0 - Localized edema Status: Acute (4) Tobacco use ICD Code: Z72.0 - Tobacco use Assessment and Plan Patient is a 61-year-old male with primary medical history of lung cancer stage III, HTN, CAD, COPD who came into the hospital for generalized weakness, right foot swelling. Community-acquired pneumonia Underlying COPD Lung cancer stage III status post radiation, 20 radiations done -Chest x-ray showed left midlung zone airspace consolidation consistent with pneumonia. Recommended follow-up to resolution to exclude a postobstructive process. -Continue prednisone twice daily, Symbicort twice daily -Duo nebs scheduled and as needed -IV azithromycin, cefepime IV. Consult infectious disease for further recommendations and recommendation discharge. -O2 facial mask or nasal cannula, keep O2 sat greater than 90%. -Monitor respiratory status Debility Lung cancer status post radiation -Physical therapy eval and treat -Palliative care consult for goals of care HTN CAD HLD -Continue metoprolol 50 mg every 12 hours, lisinopril 5 mg daily, Lasix 40 mg daily, Cardizem 240 mg daily, Plavix, aspirin, pravastatin 10 mg daily -Monitor BP trend Hyponatremia, chronic -Continue sodium tabs daily -Monitor sodium level DVT prop Lovenox Dc when improves and cleared by consultants Problem Qualifiers (1) PNA (pneumonia): Qualified Codes: J18.9 - Pneumonia, unspecified organism Queenie Wrgiht MD Jul 18, 2017 09:03
[2017-07-18] MEDS: LISINOPRIL 5 MG TAB PO SCH (09:21)
[2017-07-18] MEDS: DILTIAZEM-CD 240 MG CAP ER PO SCH (09:21)
[2017-07-18] MEDS: PRAVASTATIN SOD 10 MG TAB PO SCH (09:22)
[2017-07-18] MEDS: ASPIRIN EC 81 MG TABEC PO SCH (09:22)
[2017-07-18] MEDS: CLOPIDOGREL 75 MG TAB PO SCH (09:22)
[2017-07-18] MEDS: MULTIVITAMINS/MINERALS THERAPEUTIC TAB PO SCH (09:22)
[2017-07-18] MEDS: predniSONE 20 MG TAB PO SCH ×2 (09:23→23:20)
[2017-07-18] MEDS: FUROSEMIDE 40 MG TAB PO SCH (09:23)
[2017-07-18] MEDS: SODIUM CHLORIDE 1 GRAM TAB PO SCH (09:23)
[2017-07-18] MEDS: METOPROLOL TARTRATE 50 MG TAB PO SCH ×2 (09:24→23:20)
[2017-07-18] MEDS: ACETAMINOPHEN/HYDROcodone 325 MG/5 MG TAB PO PRN ×2 (09:27→17:16)
[2017-07-18] MEDS: AZITHROMYCIN INJ 500 MG in SODIUM CHLOR 0.9% 250 ML INJ 250 ML IV SCH (11:26)
[2017-07-18 11:37] LABS: HEMATOCRIT 22.8 % (39.0-51.0); HEMOGLOBIN 7.8 GM/DL (13.0-17.0); MEAN CELL VOLUME 95.2 FL (80.0-100.0); MEAN CORPUSCULAR HEMOGLOBIN 32.5 PG (27.0-34.0); MEAN CORPUSCULAR HGB CONC 34.1 % (32.0-36.0); MEAN PLATELET VOLUME 7.6 FL (7.0-11.0); PLATELET COUNT 148 TH/MM3 (150-450); RED BLOOD COUNT 2.39 MIL/MM3 (4.50-5.90); RED CELL DISTRIBUTION WIDTH 18.8 % (11.6-17.2); WHITE BLOOD COUNT 5.2 TH/MM3 (4.0-11.0)
[2017-07-18 12:00] VITALS: BP 128/78; PULSE 90; RESP 19; TEMP 98.2; O2SAT 93
[2017-07-18 12:07] LABS: BICARBONATE 31.4 MEQ/L (21.0-32.0); CALCIUM 8.3 MG/DL (8.5-10.1); CREATININE 0.86 MG/DL (0.60-1.30)
[2017-07-18 16:00] VITALS: BP 140/77; PULSE 84; RESP 19; TEMP 98.2; O2SAT 93
[2017-07-18] MEDS: ENOXAPARIN SODIUM 40 MG/0.4 ML SYRINGE SQ SCH (17:18)
--- NOTE | 2017-07-18 19:49 | MB ---
cc: Herve Zarate MD DATE OF CONSULT: 07/18/2017 REQUESTING PHYSICIAN: Dr. Wright. REASON FOR CONSULTATION: Pneumonia. Cancer patient who is immunocompromised. Sputum with Pseudomonas. HISTORY OF PRESENT ILLNESS: This is a 61-year-old white male, who has history of lung cancer. He is status post radiation therapy. He presented to the emergency department with generalized malaise, and right foot swelling and ecchymosis. The patient was noted to have a cough and the sputum sample was taken and came back with Pseudomonas aeruginosa. The patient was recently hospitalized in 04/2017 and treated for pneumonia. At that time, sputum culture grew out Pseudomonas aeruginosa. He was treated for a right lung infiltrate at that time. Chest x-ray yesterday showing left mid lung airspace consolidation consistent with pneumonia. The patient states that he is coughing up occasional sputum. He denies chest pain. He is concerned about his toes being blackened. He has an area of ecchymosis at the dorsal aspect of the right foot and some tarry black-brown discoloration at the lateral second, third and fourth toes. There is no necrosis. He is afebrile. His white blood cell count is normal. X-ray of the right foot is unremarkable. The patient has been started on cefepime. PAST MEDICAL HISTORY: Lung cancer stage III, hypertension, COPD, coronary artery disease, peripheral arterial disease, iliac artery bypass, prostate surgery, and cataract removal. ALLERGIES: NO KNOWN DRUG ALLERGIES. MEDICATIONS: 1. Cefepime. 2. Diltiazem. 3. Lopressor. 4. DuoNeb. 5. Multivitamin. 6. Pravachol. 7. Prinivil. 8. Lasix. 9. Cardizem. 10. Plavix. 11. Ecotrin. 12. [place] 5 p.r.n. 13. Azithromycin. SOCIAL HISTORY: Positive tobacco, positive alcohol, no illicit drugs. FAMILY HISTORY: Noncontributory. PHYSICAL EXAMINATION: GENERAL: This is a slender man who is awake and alert and in no acute distress. VITAL SIGNS: Include temp 98.2, blood pressure 140/77, respirations 18, heart rate 84. HEENT: The head is atraumatic. Extraocular movements grossly intact. Pupils reactive to light. No icterus. Oropharynx moist mucosa. LUNGS: Decreased breath sounds throughout. No audible rhonchi. HEART: Regular S1 and S2, without murmurs, rubs or gallops. ABDOMEN: Bowel sounds present, soft, nontender. RECTAL: Not performed. EXTREMITIES: No clubbing, cyanosis or edema. Ecchymosis of the right foot at the dorsum and brown area of discoloration at the inner aspect along the dorsum of toes 2, 3, and 4. SKIN: No rash. NEUROLOGIC: Nonfocal. PSYCHIATRIC: The patient is calm and cooperative. LABORATORY DATA: WBC 5.2, platelets 148, hemoglobin 7.8. Creatinine 0.86, BUN 15, sodium 132. Blood cultures no growth. IMPRESSION: 1. Pneumonia due to Pseudomonas. The patient has left lung infiltrate on chest x-ray and a positive sputum culture. 2. History of lung cancer. 3. Abnormal changes of the foot, but this looks more like ecchymosis rather than necrosis or infection related. RECOMMENDATIONS: 1. Continue cefepime. 2. Monitor sputum culture and sensitivity of the Pseudomonas. 3. Continue treatment based on response to the antipseudomonal treatment. 4. Discontinue azithromycin. Thank you for this consultation. The patient's progress will be monitored. MD KRISTEN Del Rosario/HAILE , 06:40 PM , 07:47 PM
[2017-07-18 20:33] VITALS: BP 149/76; PULSE 91; RESP 18; TEMP 97.3; O2SAT 92
[2017-07-18 23:29] VITALS: BP 167/77; PULSE 99; RESP 18; TEMP 98; O2SAT 92
[2017-07-19] MEDS: ACETAMINOPHEN/HYDROcodone 325 MG/7.5 MG TAB PO PRN ×4 (03:07→23:19)
[2017-07-19 03:22] VITALS: BP 163/88; PULSE 95; RESP 17; TEMP 98.4; O2SAT 92
[2017-07-19 07:48] VITALS: BP 156/89; PULSE 83; RESP 16; TEMP 98; O2SAT 98
[2017-07-19 08:46] LABS: BASOPHIL % 0.2 % (0.0-2.0); HEMATOCRIT 22.5 % (39.0-51.0); HEMOGLOBIN 7.7 GM/DL (13.0-17.0); LYMPH % 1.8 % (9.0-44.0); LYMPHOCYTE # 0.1 TH/MM3 (1.0-4.8); MEAN CELL VOLUME 94.8 FL (80.0-100.0); MEAN CORPUSCULAR HEMOGLOBIN 32.5 PG (27.0-34.0); MEAN CORPUSCULAR HGB CONC 34.3 % (32.0-36.0); MEAN PLATELET VOLUME 7.6 FL (7.0-11.0); MONO % 8.4 % (0.0-8.0); MONOCYTE # 0.5 TH/MM3 (0-0.9); NEUT % 89.6 % (16.0-70.0); PLATELET COUNT 143 TH/MM3 (150-450); RED BLOOD COUNT 2.37 MIL/MM3 (4.50-5.90); RED CELL DISTRIBUTION WIDTH 18.8 % (11.6-17.2); WHITE BLOOD COUNT 5.6 TH/MM3 (4.0-11.0)
[2017-07-19 09:10] LABS: BICARBONATE 29.4 MEQ/L (21.0-32.0); CALCIUM 8.5 MG/DL (8.5-10.1); CREATININE 1.01 MG/DL (0.60-1.30)
[2017-07-19] MEDS: DILTIAZEM-CD 240 MG CAP ER PO SCH (09:38)
[2017-07-19] MEDS: METOPROLOL TARTRATE 50 MG TAB PO SCH ×2 (09:38→23:19)
[2017-07-19] MEDS: ASPIRIN EC 81 MG TABEC PO SCH (09:39)
[2017-07-19] MEDS: PRAVASTATIN SOD 10 MG TAB PO SCH (09:39)
[2017-07-19] MEDS: LISINOPRIL 5 MG TAB PO SCH (09:39)
[2017-07-19] MEDS: MULTIVITAMINS/MINERALS THERAPEUTIC TAB PO SCH (09:39)
[2017-07-19] MEDS: predniSONE 20 MG TAB PO SCH ×2 (09:39→23:19)
[2017-07-19] MEDS: FUROSEMIDE 40 MG TAB PO SCH (09:40)
[2017-07-19] MEDS: SODIUM CHLORIDE 1 GRAM TAB PO SCH (09:40)
[2017-07-19] MEDS: BUDESONIDE-FORMOTEROL 160/4.5 MCG INHALER INH SCH ×2 (09:40→23:20)
[2017-07-19] MEDS: CLOPIDOGREL 75 MG TAB PO SCH (09:40)
[2017-07-19] MEDS: CEFEPIME INJ 2,000 MG in SODIUM CHLORIDE 0.9% INJ 100 ML IV SCH ×2 (09:41→17:36)
[2017-07-19] MEDS: AZITHROMYCIN INJ 500 MG in SODIUM CHLOR 0.9% 250 ML INJ 250 ML IV SCH (11:26)
--- NOTE | 2017-07-19 11:47 | HHI.PR ---
Subjective Remarks Patient is in bed. He says he feels a little bit better today tired. Still with cough not much production. No fever or chills overnight Objective Vitals Vital Signs Date Time Temp Pulse Resp B/P (MAP) Pulse Ox O2 Delivery O2 Flow Rate FiO2 07/19/17 07:48 98.0 83 16 156/89 (111) 98 07/19/17 06:43 18 07/19/17 03:22 98.4 95 17 163/88 (113) 92 07/18/17 23:29 98.0 99 18 167/77 (107) 92 07/18/17 20:33 97.3 91 18 149/76 (100) 92 07/18/17 16:00 98.2 84 19 140/77 (98) 93 07/18/17 12:00 98.2 90 19 128/78 (95) 93 I/O 07/18/17 07/18/17 07/18/17 07/19/17 07/19/17 07/19/17 07:00 15:00 23:00 07:00 15:00 23:00 Intake Total 1160 ml 360 ml 100 ml Balance 1160 ml 360 ml 100 ml Intake Oral 1160 ml 360 ml IV Total 100 ml # Voids 5 5 # Bowel Movements 2 1 Result Diagram: 07/19/17 0832 07/19/17 0832 Imaging Last Impressions Lower Extremity Ultrasound 07/17/17 0000 Signed Impressions: Service Date/Time: Monday, July 17, 2017 08:00 - CONCLUSION: No evidence of deep venous thrombosis within the right lower extremity. Rodrigo Michel MD Foot X-Ray 07/17/17 0000 Signed Impressions: Service Date/Time: Monday, July 17, 2017 07:51 - CONCLUSION: 1. Unremarkable radiographs of the right foot. Cameron Lemus MD Chest X-Ray 07/17/17 0000 Signed Impressions: Service Date/Time: Monday, July 17, 2017 07:56 - CONCLUSION: Left midlung zone airspace consolidation consistent with pneumonia. Recommend followup to resolution to exclude a post obstructive process. Cameron Lemus MD Objective Remarks GENERAL: This is a thin appearing, appears older than stated age, in no apparent distress. SKIN: Warm and dry. Right foot ecchymosis, rt knee ecchymosis. HEAD: Atraumatic. Normocephalic. No temporal or scalp tenderness. CARDIOVASCULAR: Regular rate and rhythm without murmurs, gallops, or rubs. RESPIRATORY: Bronchial breath sounds. GASTROINTESTINAL: Abdomen soft, non-tender, nondistended. Bowel sounds active 4 MUSCULOSKELETAL: Extremities without clubbing, cyanosis. Bilateral lower extremity edema +2 right greater than the left. NEUROLOGICAL: Awake and alert. Oriented to place, person Cranial nerves II through XII intact. Slow speech. A/P Problem List: (1) PNA (pneumonia) ICD Code: J18.9 - Pneumonia, unspecified organism (2) Lung cancer ICD Code: C34.90 - Malignant neoplasm of unspecified part of unspecified bronchus or lung (3) Edema of right foot ICD Code: R60.0 - Localized edema Status: Acute (4) Tobacco use ICD Code: Z72.0 - Tobacco use Assessment and Plan Patient is a 61-year-old male with primary medical history of lung cancer stage III, HTN, CAD, COPD who came into the hospital for generalized weakness, right foot swelling. Community-acquired pneumonia Underlying COPD Lung cancer stage III status post radiation, 20 radiations done -Chest x-ray showed left midlung zone airspace consolidation consistent with pneumonia. Recommended follow-up to resolution to exclude a postobstructive process. -Continue prednisone twice daily, Symbicort twice daily -Duo nebs scheduled and as needed -IV azithromycin, cefepime IV. Consult infectious disease for further recommendations and recommendation discharge. Patient has had Pseudomonas in sputum, follow-up final sensitivities. -O2 facial mask or nasal cannula, keep O2 sat greater than 90%. -Monitor respiratory status Debility Lung cancer status post radiation -Physical therapy eval and treat -Palliative care consult for goals of care HTN CAD HLD -Continue metoprolol 50 mg every 12 hours, lisinopril 5 mg daily, Lasix 40 mg daily, Cardizem 240 mg daily, Plavix, aspirin, pravastatin 10 mg daily -Monitor BP trend Hyponatremia, chronic -Continue sodium tabs daily -Monitor sodium level DVT prop Lovenox Dc when improves and cleared by consultants Problem Qualifiers (1) PNA (pneumonia): Qualified Codes: J18.9 - Pneumonia, unspecified organism Queenie Wright MD Jul 19, 2017 11:47
[2017-07-19 13:29] VITALS: BP 140/78; PULSE 84; RESP 14; TEMP 97.8; O2SAT 96
[2017-07-19 16:40] VITALS: BP 152/73; PULSE 79; RESP 16; TEMP 98.2; O2SAT 98
[2017-07-19] MEDS: ENOXAPARIN SODIUM 40 MG/0.4 ML SYRINGE SQ SCH (17:36)
--- NOTE | 2017-07-19 19:31 | HHI.IDPN ---
Note Infectious Disease Note Patient states he feels better. Has mild shortness of breath. Receiving breathing treatment. Denies chest pain. Does not have chills. Afebrile. States that he feels like he is coughing but it feels like the sputum is loosening up. No pain or discomfort in the right foot. 61-year-old white male, who has history of lung cancer. He is status post radiation therapy. He presented to the emergency department with generalized malaise, and right foot swelling and ecchymosis. The patient was noted to have a cough and the sputum sample was taken and came back with Pseudomonas aeruginosa. The patient was recently hospitalized in 04/2017 and treated for pneumonia. At that time, sputum culture grew out Pseudomonas aeruginosa. He was treated for a right lung infiltrate at that time. Chest x-ray yesterday showing left mid lung airspace consolidation consistent with pneumonia. PAST MEDICAL HISTORY: Lung cancer stage III, hypertension, COPD, coronary artery disease, peripheral arterial disease, iliac artery bypass, prostate surgery, and cataract removal. ALLERGIES: NO KNOWN DRUG ALLERGIES. MEDICATIONS: Current Medications Medications (Trade) Dose Ordered Sig/Benton Route PRN Reason Start Time Stop Time Status Last Admin Dose Admin Aspirin (Ecotrin Ec) 81 mg DAILY PO 07/18/17 09:00 07/19/17 09:39 Clopidogrel Bisulfate (Plavix) 75 mg DAILY PO 07/18/17 09:00 07/19/17 09:40 Diltiazem HCl (Cardizem Cd) 240 mg DAILY PO 07/18/17 09:00 07/19/17 09:38 Furosemide (Lasix) 40 mg DAILY PO 07/18/17 09:00 07/19/17 09:40 Lisinopril (Prinivil) 5 mg DAILY PO 07/18/17 09:00 07/19/17 09:39 Pravastatin Sodium (Pravachol) 10 mg DAILY PO 07/18/17 09:00 07/19/17 09:39 Metoprolol Tartrate (Lopressor) 50 mg Q12HR PO 07/17/17 21:00 07/19/17 09:38 Multivitamins/ Minerals Therapeutic (Theragran M Tab) 1 tab DAILY PO 07/18/17 09:00 07/19/17 09:39 Prednisone (Deltasone) 20 mg BID PO 07/17/17 21:00 07/19/17 09:39 Sodium Chloride (Sodium Chloride) 1 gm DAILY PO 07/18/17 09:00 07/19/17 09:40 Budesonide/ Formoterol Fumarate (Symbicort 160-4.5 Mcg Inh) 1 puff Q12HR INH 07/17/17 21:00 07/19/17 09:40 Cefepime HCl 2000 mg/Sodium Chloride 100 ml @ 200 mls/hr Q8H IV 07/17/17 18:00 07/19/17 17:36 Azithromycin 500 mg/Sodium Chloride 250 ml @ 250 mls/hr Q24H IV 07/17/17 11:00 07/19/17 11:26 Acetaminophen/ Hydrocodone Bitart (Clemons 5-325 Mg) 1 tab Q4H PRN PO Pain 3-6 07/17/17 15:00 07/18/17 17:16 Acetaminophen/ Hydrocodone Bitart (Clemons 7.5-325 Mg) 1 tab Q4H PRN PO Pain 7-10 07/17/17 15:00 07/19/17 17:39 Acetaminophen (Tylenol) 650 mg Q4H PRN PO Temp 100.4, GODOY, Pain 1-2 07/17/17 15:00 Enoxaparin Sodium (Lovenox Inj) 40 mg Q24H SQ 07/17/17 17:00 07/19/17 17:36 Albuterol/ Ipratropium (Duoneb Neb) 1 ampule Q4HR NEB PRN NEB wheezing/sob 07/18/17 09:00 OBJECTIVE: Vital Signs Date Time Temp Pulse Resp B/P (MAP) Pulse Ox O2 Delivery O2 Flow Rate FiO2 07/19/17 16:40 98.2 79 16 152/73 (99) 98 07/19/17 13:29 97.8 84 14 140/78 (98) 96 07/19/17 07:48 98.0 83 16 156/89 (111) 98 07/19/17 06:43 18 07/19/17 03:22 98.4 95 17 163/88 (113) 92 07/18/17 23:29 98.0 99 18 167/77 (107) 92 07/18/17 20:33 97.3 91 18 149/76 (100) 92 Laboratory Tests Test 07/18/17 10:42 07/19/17 08:32 White Blood Count 5.2 TH/MM3 5.6 TH/MM3 Red Blood Count 2.39 MIL/MM3 2.37 MIL/MM3 Hemoglobin 7.8 GM/DL 7.7 GM/DL Hematocrit 22.8 % 22.5 % Mean Corpuscular Volume 95.2 FL 94.8 FL Mean Corpuscular Hemoglobin 32.5 PG 32.5 PG Mean Corpuscular Hemoglobin Concent 34.1 % 34.3 % Red Cell Distribution Width 18.8 % 18.8 % Platelet Count 148 TH/MM3 143 TH/MM3 Mean Platelet Volume 7.6 FL 7.6 FL Neutrophils (%) (Auto) 89.6 % Lymphocytes (%) (Auto) 1.8 % Monocytes (%) (Auto) 8.4 % Eosinophils (%) (Auto) 0.0 % Basophils (%) (Auto) 0.2 % Neutrophils # (Auto) 5.0 TH/MM3 Lymphocytes # (Auto) 0.1 TH/MM3 Monocytes # (Auto) 0.5 TH/MM3 Eosinophils # (Auto) 0.0 TH/MM3 Basophils # (Auto) 0.0 TH/MM3 CBC Comment DIFF FINAL Differential Comment Laboratory Tests Test 07/18/17 10:42 07/19/17 08:32 Blood Urea Nitrogen 15 MG/DL 18 MG/DL Creatinine 0.86 MG/DL 1.01 MG/DL Random Glucose 98 MG/DL 99 MG/DL Calcium Level 8.3 MG/DL 8.5 MG/DL Sodium Level 132 MEQ/L 131 MEQ/L Potassium Level 3.9 MEQ/L 3.9 MEQ/L Chloride Level 93 MEQ/L 93 MEQ/L Carbon Dioxide Level 31.4 MEQ/L 29.4 MEQ/L Anion Gap 8 MEQ/L 9 MEQ/L Estimat Glomerular Filtration Rate 90 ML/MIN 75 ML/MIN Microbiology Date/Time Source Procedure Growth Status 07/17/17 09:25 Blood Peripheral Aerobic Blood Culture - Preliminary NO GROWTH IN 2 DAYS Resulted 07/17/17 09:25 Blood Peripheral Anaerobic Blood Culture - Preliminary NO GROWTH IN 2 DAYS Resulted 07/17/17 09:20 Blood Peripheral Aerobic Blood Culture - Preliminary NO GROWTH IN 2 DAYS Resulted 07/17/17 09:20 Blood Peripheral Anaerobic Blood Culture - Preliminary NO GROWTH IN 2 DAYS Resulted 07/17/17 16:30 Sputum Expectorated Sputum Gram Stain - Final Complete 07/17/17 16:30 Sputum Culture - Final Pseudomonas Aeruginosa Complete 07/17/17 18:15 Urine Random Urine Legionella Antigen - Final PRESUMPTIVE NEGATIVE FOR LEGIONELLA P... Complete 07/17/17 18:15 Urine Random Urine Streptococcus pneumoniae Antigen (M - Final PRESUMPTIVE NEGATIVE FOR STREPTOCOCCU... Complete IMAGING: Reviewed. Lower Extremity Ultrasound 07/17/17 0000 Signed Impressions: Service Date/Time: Monday, July 17, 2017 08:00 - CONCLUSION: No evidence of deep venous thrombosis within the right lower extremity. Rodrigo Michel MD Foot X-Ray 07/17/17 0000 Signed Impressions: Service Date/Time: Monday, July 17, 2017 07:51 - CONCLUSION: 1. Unremarkable radiographs of the right foot. Cameron Lemus MD Chest X-Ray 07/17/17 0000 Signed Impressions: Service Date/Time: Monday, July 17, 2017 07:56 - CONCLUSION: Left midlung zone airspace consolidation consistent with pneumonia. Recommend followup to resolution to exclude a post obstructive process. Cameron Lemus MD PHYSICAL EXAMINATION: GENERAL: No acute distress. Alert and oriented. HEENT: The head is atraumatic. Extraocular movements grossly intact. Pupils reactive to light. No icterus. Oropharynx moist mucosa. LUNGS: Mild wheezing at both bases. HEART: Regular S1 and S2, without murmurs, rubs or gallops. ABDOMEN: Bowel sounds present, soft, nontender. EXTREMITIES: No clubbing, cyanosis or edema. Ecchymosis of the right foot at the lateral dorsum and brown area of discoloration at the inner aspect along the dorsum on both sides of toes 2, 3, and 4 sparing of the central portion. SKIN: No rash. NEUROLOGIC: Nonfocal. PSYCHIATRIC: Calm and cooperative. IMPRESSION: 1. Pneumonia due to Pseudomonas. The patient has left lung infiltrate on chest x-ray and a positive sputum culture. 2. History of lung cancer. 3. Abnormal changes of the foot, but this looks more like ecchymosis rather than necrosis or infection related. RECOMMENDATIONS: 1. Continue cefepime. 2. Continue to follow clinical status 3. Repeat chest x-ray to follow the lung infiltrates. Herve Zarate MD Jul 19, 2017 19:31
[2017-07-19 21:40] VITALS: BP 164/82; PULSE 76; RESP 18; TEMP 97.8; O2SAT 91
[2017-07-20] MEDS: CEFEPIME INJ 2,000 MG in SODIUM CHLORIDE 0.9% INJ 100 ML IV SCH ×3 (04:33→18:00)
[2017-07-20] MEDS: ACETAMINOPHEN/HYDROcodone 325 MG/7.5 MG TAB PO PRN (04:46)
[2017-07-20 07:08] VITALS: BP 167/87; PULSE 70; RESP 20; TEMP 98; O2SAT 93
[2017-07-20] MEDS: MULTIVITAMINS/MINERALS THERAPEUTIC TAB PO SCH (09:00)
[2017-07-20] MEDS: SODIUM CHLORIDE 1 GRAM TAB PO SCH (09:00)
[2017-07-20 11:45] LABS: HEMATOCRIT 25.8 % (39.0-51.0); HEMOGLOBIN 8.8 GM/DL (13.0-17.0); MEAN CELL VOLUME 95.5 FL (80.0-100.0); MEAN CORPUSCULAR HEMOGLOBIN 32.4 PG (27.0-34.0); MEAN PLATELET VOLUME 7.7 FL (7.0-11.0); PLATELET COUNT 142 TH/MM3 (150-450); RED BLOOD COUNT 2.71 MIL/MM3 (4.50-5.90); RED CELL DISTRIBUTION WIDTH 19.3 % (11.6-17.2); WHITE BLOOD COUNT 6.2 TH/MM3 (4.0-11.0)
[2017-07-20] MEDS: CLOPIDOGREL 75 MG TAB PO SCH (11:47)
[2017-07-20] MEDS: METOPROLOL TARTRATE 50 MG TAB PO SCH (11:48)
[2017-07-20] MEDS: ASPIRIN EC 81 MG TABEC PO SCH (11:48)
[2017-07-20] MEDS: PRAVASTATIN SOD 10 MG TAB PO SCH (11:48)
[2017-07-20] MEDS: LISINOPRIL 5 MG TAB PO SCH (11:48)
[2017-07-20] MEDS: DILTIAZEM-CD 240 MG CAP ER PO SCH (11:49)
[2017-07-20] MEDS: FUROSEMIDE 40 MG TAB PO SCH (11:49)
[2017-07-20] MEDS: predniSONE 20 MG TAB PO SCH (11:49)
[2017-07-20 11:50] VITALS: BP 192/97; PULSE 90; RESP 24; TEMP 98.1; O2SAT 96
[2017-07-20] MEDS: BUDESONIDE-FORMOTEROL 160/4.5 MCG INHALER INH SCH (11:50)
[2017-07-20 12:13] LABS: BICARBONATE 28.4 MEQ/L (21.0-32.0); BLOOD UREA NITROGEN 20 MG/DL (7-18); CALCIUM 8.2 MG/DL (8.5-10.1); CHLORIDE 91 MEQ/L (98-107); CREATININE 1.07 MG/DL (0.60-1.30); GLOMERULAR FILTRATION RATE 70 ML/MIN (>89); GLUCOSE,RANDOM 209 MG/DL (74-106); IRON (FE) 47 MCG/DL (65-175); SODIUM (NA) 129 MEQ/L (136-145)
[2017-07-20 12:35] LABS: % SATURATION IRON PROFILE 18.3 % (20-50); FERRITIN 117 NG/ML (26-388); FOLATE 13.2 NG/ML (3.1-17.5); TOTAL IRON BINDING CAPACITY 256 MCG/DL (250-450)
[2017-07-20] MEDS ORDERED: LEVA750T9 PO (14:18)
--- NOTE | 2017-07-20 14:18 | RADRPT ---
EXAM DATE/TIME: 07/20/2017 14:07 [facility] COMPARISON: CT PULMONARY ANGIOGRAM, April 05, 2017, 20:05. CHEST SINGLE AP, July 17, 2017, 7:56. INDICATIONS : Cough, shortness of breath, wheezing x1 week. MEDICAL HISTORY : None. SURGICAL HISTORY : None. ENCOUNTER: Initial ACUITY: 1 week PAIN SCORE: 0/10 LOCATION: Bilateral chest FINDINGS: The examination demonstrates an area of consolidated infiltrate or fibrosis in the left lower lobe. T his is similar to the previous exam. The study demonstrates a new area of infiltrate in the right low er lobe. This was not present on prior 07/17/17. There is diffuse interstitial prominence suggesting p ulmonary fibrosis. The heart is normal in size. The mediastinal contours are within normal limits. The visualized bony structures demonstrate degenerative changes but are otherwise intact. CONCLUSION: 1. COPD changes with consolidated infiltrate in the left lower lobe. 2. New area of infiltrate at the right base. Zeeshan Hwang MD on July 20, 2017 at 14:14 Board Certified Radiologist. This report was verified electronically.
--- NOTE | 2017-07-20 14:18 | HHI.DCPOC ---
Discharge Care Plan Diagnosis: (1) Pain (2) Tobacco abuse (3) Shortness of breath (4) Lung cancer Your Health Problems Are: Difficulty with ADL Weight Loss Shortness of Breath Goals to Promote Your Health * To prevent worsening of your condition and complications * To maintain your health at the optimal level Directions to Meet Your Goals Take your medications as prescribed Follow your dietary instruction Follow activity as directed Keep your appointments as scheduled Take your immunizations and boosters as scheduled If your symptoms worsen call your PCP, if no PCP go to Urgent Care Center or Emergency Room Smoking is Dangerous to Your Health. Avoid second hand smoke Call the 24-hour hour crisis hotline for domestic abuse at Navdeep Barrios Jul 20, 2017 14:18
--- NOTE | 2017-07-20 14:20 | HHI.FF ---
Face to Face Verification Diagnosis: (1) Pain (2) Tobacco abuse (3) Shortness of breath (4) Lung cancer (5) PNA (pneumonia) Physical Therapy Order: Evaluate and Treat Home Health Nursing Order: Medical education Signs/symptoms of disease process Oxygen administration education Medication education-adverse effect Nursing assessment with vital signs I have seen patient Robert Adams on 07/20/17. My clinical findings support the need for the requested home health care services because: Ltd mobility - disease progression Patient has SOB Deconditioned w/ increased weakness Limited ability to care for self High risk of falls I certify that my clinical findings support that this patient is homebound because: Impaired cognitive ability/safety Hx COPD- exertion dyspnea/weakness Unsteady gait/balance Navdeep Barrios Jul 20, 2017 14:20
--- NOTE | 2017-07-20 14:21 | HHI.DS ---
Discharge Summary Admission Date Jul 20, 2017 at 12:54 Discharge Date: Jul 20, 2017 Admitting Diagnosis left sided pneumonia, immunocompromise lung cancer patient (1) PNA (pneumonia) ICD Code: J18.9 - Pneumonia, unspecified organism (2) Lung cancer ICD Code: C34.90 - Malignant neoplasm of unspecified part of unspecified bronchus or lung (3) Edema of right foot ICD Code: R60.0 - Localized edema Status: Acute (4) Tobacco use ICD Code: Z72.0 - Tobacco use Procedures none Brief History - From Admission Written by Navdeep Mckenna, acting as scribe for Dr. Wright on 07/17/17 at 15:08. Patient is a 61-year-old male with primary medical history of lung cancer stage III, HTN, CAD, COPD who came into the hospital for generalized weakness, right foot swelling. Patient states that he was getting into the shower today when he noticed that his right foot is really swollen and discolored. He got nervous about it. Supposedly today he is to go for a PET scan scheduled. He follows with radiology oncology Dr. Gilliam in delay in. States that he did want chemotherapy treatment with Dr. Stark but was upset with the doctor that he did not follow through. Patient states that he has on and off pneumonia that is not going away and it concerns him. Discussed extensively with patient that because he is immunocompromised he is at higher risk for elyssa pneumonia. Complaints of pain 12/11, back and neck area, aggravated by movement, states it is his arthritis, gets relief with Tylenol 3. Denies SOB/ dyspnea. Reports cough. Denies chest pain, palpitations, headaches, dizziness. Denies fevers, chills, n/v/d. Denies hematuria, dysuria. CBC/BMP: 07/20/17 1110 07/20/17 1110 Significant Findings Laboratory Tests Test 07/17/17 18:15 07/18/17 10:42 07/19/17 08:32 07/20/17 11:10 Urine Protein 30 mg/dL (NEG-TRACE) Red Blood Count 2.39 MIL/MM3 (4.50-5.90) 2.37 MIL/MM3 (4.50-5.90) 2.71 MIL/MM3 (4.50-5.90) Hemoglobin 7.8 GM/DL (13.0-17.0) 7.7 GM/DL (13.0-17.0) 8.8 GM/DL (13.0-17.0) Hematocrit 22.8 % (39.0-51.0) 22.5 % (39.0-51.0) 25.8 % (39.0-51.0) Red Cell Distribution Width 18.8 % (11.6-17.2) 18.8 % (11.6-17.2) 19.3 % (11.6-17.2) Platelet Count 148 TH/MM3 (150-450) 143 TH/MM3 (150-450) 142 TH/MM3 (150-450) Calcium Level 8.3 MG/DL (8.5-10.1) 8.2 MG/DL (8.5-10.1) Sodium Level 132 MEQ/L (136-145) 131 MEQ/L (136-145) 129 MEQ/L (136-145) Chloride Level 93 MEQ/L (98-107) 93 MEQ/L (98-107) 91 MEQ/L (98-107) Neutrophils (%) (Auto) 89.6 % (16.0-70.0) Lymphocytes (%) (Auto) 1.8 % (9.0-44.0) Monocytes (%) (Auto) 8.4 % (0.0-8.0) Lymphocytes # (Auto) 0.1 TH/MM3 (1.0-4.8) Estimat Glomerular Filtration Rate 75 ML/MIN (>89) 70 ML/MIN (>89) Blood Urea Nitrogen 20 MG/DL (7-18) Random Glucose 209 MG/DL (74-106) Iron Level 47 MCG/DL (65-175) Percent Iron Saturation 18.3 % (20-50) Vitamin B12 Level 1678 PG/ML (193-986) Imaging Last Impressions Chest X-Ray 07/20/17 0000 Signed Impressions: Service Date/Time: Thursday, July 20, 2017 14:07 - CONCLUSION: 1. COPD changes with consolidated infiltrate in the left lower lobe. 2. New area of infiltrate at the right base. Zeeshan Hwang MD Lower Extremity Ultrasound 07/17/17 0000 Signed Impressions: Service Date/Time: Monday, July 17, 2017 08:00 - CONCLUSION: No evidence of deep venous thrombosis within the right lower extremity. Rodrigo Michel MD Foot X-Ray 07/17/17 0000 Signed Impressions: Service Date/Time: Monday, July 17, 2017 07:51 - CONCLUSION: 1. Unremarkable radiographs of the right foot. Cameron Lemus MD PE at Discharge GENERAL: This is a thin appearing, appears older than stated age, in no apparent distress. SKIN: Warm and dry. Right foot ecchymosis, rt knee ecchymosis. HEAD: Atraumatic. Normocephalic. No temporal or scalp tenderness. CARDIOVASCULAR: Regular rate and rhythm without murmurs, gallops, or rubs. RESPIRATORY: Bronchial breath sounds. GASTROINTESTINAL: Abdomen soft, non-tender, nondistended. Bowel sounds active 4 MUSCULOSKELETAL: Extremities without clubbing, cyanosis. Bilateral lower extremity edema +2 right greater than the left. NEUROLOGICAL: Awake and alert. Oriented to place, person Cranial nerves II through XII intact. Slow speech. Pt update on day of discharge The bed feels much better today. He was noted ambulating fairly well. No nausea vomiting no diarrhea or constipation. Says he has less cough, not much sputum. No fever or chills overnight. Hospital Course Patient is a 61-year-old male with primary medical history of lung cancer stage III, HTN, CAD, COPD who came into the hospital for generalized weakness, right foot swelling. Community-acquired pneumonia Underlying COPD Lung cancer stage III status post radiation, 20 radiations done -Chest x-ray showed left midlung zone airspace consolidation consistent with pneumonia. Recommended follow-up to resolution to exclude a postobstructive process. -Continue prednisone twice daily, Symbicort twice daily -Duo nebs scheduled and as needed -IV azithromycin, cefepime IV. Consult infectious disease for further recommendations and recommendation discharge. Patient has had Pseudomonas in sputum, follow-up final sensitivities. -O2 facial mask or nasal cannula, keep O2 sat greater than 90%. -Monitor respiratory status Debility Lung cancer status post radiation -Physical therapy eval and treat -Palliative care consult for goals of care HTN CAD HLD -Continue metoprolol 50 mg every 12 hours, lisinopril 5 mg daily, Lasix 40 mg daily, Cardizem 240 mg daily, Plavix, aspirin, pravastatin 10 mg daily -Monitor BP trend Hyponatremia, chronic -Continue sodium tabs daily -Monitor sodium level DVT prop Lovenox Patient improved. Discussed with Dr. Zarate infectious disease specialist. Patient with sputum positive for pseudomonas aeruginosa pansensitive. Can discharge patient on Levaquin 750 mg p.o. twice daily for 14 days. Patient is discharged home with home health in stable condition to follow-up with PCP and consultants as outpatient. Pt Condition on Discharge: Stable Discharge Disposition: Disch w/ Home Health Serv Discharge Time: > 30 minutes Discharge Instructions DIET: Follow Instructions for: Heart Healthy Diet Activities you can perform: Regular-No Restrictions Activities to Avoid: Driving Follow up Referrals: Oncology - 1 Week PCP Follow-up - 2-3 Days Pulmonology - 1 Week Continued Medications: Aspirin DR (Aspirin DR) 81 Mg Tabdr 81 MG PO DAILY for Prevent Blood Clot, #30 TAB Clopidogrel (Clopidogrel) 75 Mg Tab 75 MG PO DAILY for Blood Clot Prevention, #30 TAB 0 Refills Cyanocobalamin (B12) 1,000 Mcg Tab Diltiazem CD 24 HR (Cardizem CD 24 HR) 240 Mg Caper 240 MG PO DAILY for Regulate Heart Beat, #30 CAP 0 Refills Furosemide (Furosemide) 20 Mg Tab 40 MG PO DAILY for Blood Pressure Management, #60 TAB 0 Refills Levofloxacin (Levaquin) 750 Mg Tablet 750 MG PO Q24H for Infection for 14 Days, #14 TAB (This prescription has been renewed) Lisinopril (Lisinopril) 5 Mg Tab 5 MG PO DAILY for Blood Pressure Management, #30 TAB Lovastatin (Lovastatin) 10 Mg Tab 10 MG PO DAILY for Cholesterol Management, #30 TAB 0 Refills Metoprolol Tartrate (Lopressor) 50 Mg Tab 50 MG PO Q12HR for Regulate Heart Beat, #60 TAB Multiple Vitamins W/ Minerals (Centrum) 1 Chew 1 TAB CHEW DAILY for Nutritional Supplement, TAB 0 Refills Oxygen (O2) (Oxygen (O2)) Device LITER RADHA.CANULA CONTINUOUS for Prevent Hypoxemia, #2 Oxygen Concentrator Portable Gaseous 2 L/min via Nasal Canula Continuous For 99 months Prednisone (Prednisone) 20 Mg Tab 20 MG PO BID for Control Inflammation, #10 TAB Take 1 tab twice a day for 3 days then 1 tab daily for 4 days Ranitidine (Ranitidine) 300 Mg Tab Unknown Dose PO DAILY for Heartburn Management, #30 TAB 0 Refills Sodium Chloride (Sodium Chloride) 1 Gram Tab 1 GM PO DAILY for Electrolyte Replacement, #14 TAB Umeclidinium-Vilanterol Inh (Anoro Ellipta Inh) 62.5-25 Mcg/Act Aero 1 PUFF INH, #1 INHALER 0 Refills Walker with Front Wheels (Walker with Front Wheels) 1 Mis Mis EA .ROUTE DIRECTED, #1 0 Refills (This prescription has been renewed) [Budeson-Formot 160-4.5 Mcg Inh] () 60 PUFF AERO 1 PUFF INH Q12HR for Breathing Treatment, #1 Queenei Wright MD Jul 20, 2017 14:21
[2017-07-20] MEDS ORDERED: WALKER (14:45)
[2017-07-20] MEDS ORDERED: WALKER WHEELS/F1 MIS (14:47)
--- NOTE | 2017-07-20 15:08 | HHI.IDPN ---
Note Infectious Disease Note Delayed entry. Discussed with Dr. Wright earlier. Patient notes that his breathing is better. He feels good. Notes frequent urination. No shortness of breath. Denies chest pain. Afebrile. He is awake and alert and oriented. 61-year-old white male, who has history of lung cancer. He is status post radiation therapy. He presented to the emergency department with generalized malaise, and right foot swelling and ecchymosis. The patient was noted to have a cough and the sputum sample was taken and came back with Pseudomonas aeruginosa. The patient was recently hospitalized in 04/2017 and treated for pneumonia. At that time, sputum culture grew out Pseudomonas aeruginosa. He was treated for a right lung infiltrate at that time. Chest x-ray yesterday showing left mid lung airspace consolidation consistent with pneumonia. PAST MEDICAL HISTORY: Lung cancer stage III, hypertension, COPD, coronary artery disease, peripheral arterial disease, iliac artery bypass, prostate surgery, and cataract removal. ALLERGIES: NO KNOWN DRUG ALLERGIES. MEDICATIONS: Current Medications Medications (Trade) Dose Ordered Sig/Benton Route PRN Reason Start Time Stop Time Status Last Admin Dose Admin Aspirin (Ecotrin Ec) 81 mg DAILY PO 07/18/17 09:00 07/20/17 11:48 Clopidogrel Bisulfate (Plavix) 75 mg DAILY PO 07/18/17 09:00 07/20/17 11:47 Diltiazem HCl (Cardizem Cd) 240 mg DAILY PO 07/18/17 09:00 07/20/17 11:49 Furosemide (Lasix) 40 mg DAILY PO 07/18/17 09:00 07/20/17 11:49 Lisinopril (Prinivil) 5 mg DAILY PO 07/18/17 09:00 07/20/17 11:48 Pravastatin Sodium (Pravachol) 10 mg DAILY PO 07/18/17 09:00 07/20/17 11:48 Metoprolol Tartrate (Lopressor) 50 mg Q12HR PO 07/17/17 21:00 07/20/17 11:48 Multivitamins/ Minerals Therapeutic (Theragran M Tab) 1 tab DAILY PO 07/18/17 09:00 07/20/17 09:00 Prednisone (Deltasone) 20 mg BID PO 07/17/17 21:00 07/20/17 11:49 Sodium Chloride (Sodium Chloride) 1 gm DAILY PO 07/18/17 09:00 07/20/17 09:00 Budesonide/ Formoterol Fumarate (Symbicort 160-4.5 Mcg Inh) 1 puff Q12HR INH 07/17/17 21:00 07/20/17 11:50 Cefepime HCl 2000 mg/Sodium Chloride 100 ml @ 200 mls/hr Q8H IV 07/17/17 18:00 07/20/17 11:47 Acetaminophen/ Hydrocodone Bitart (Leonard 5-325 Mg) 1 tab Q4H PRN PO Pain 3-6 07/17/17 15:00 07/18/17 17:16 Acetaminophen/ Hydrocodone Bitart (Leonard 7.5-325 Mg) 1 tab Q4H PRN PO Pain 7-10 07/17/17 15:00 07/20/17 04:46 Acetaminophen (Tylenol) 650 mg Q4H PRN PO Temp 100.4, GODOY, Pain 1-2 07/17/17 15:00 Enoxaparin Sodium (Lovenox Inj) 40 mg Q24H SQ 07/17/17 17:00 07/19/17 17:36 Albuterol/ Ipratropium (Duoneb Neb) 1 ampule Q4HR NEB PRN NEB wheezing/sob 07/18/17 09:00 OBJECTIVE: Vital Signs Date Time Temp Pulse Resp B/P (MAP) Pulse Ox O2 Delivery O2 Flow Rate FiO2 07/20/17 11:50 98.1 90 24 192/97 (128) 96 07/20/17 07:08 98.0 70 20 167/87 (113) 93 07/20/17 05:26 18 07/19/17 21:40 97.8 76 18 164/82 (109) 91 07/19/17 16:40 98.2 79 16 152/73 (99) 98 Laboratory Tests Test 07/19/17 08:32 07/20/17 11:10 White Blood Count 5.6 TH/MM3 6.2 TH/MM3 Red Blood Count 2.37 MIL/MM3 2.71 MIL/MM3 Hemoglobin 7.7 GM/DL 8.8 GM/DL Hematocrit 22.5 % 25.8 % Mean Corpuscular Volume 94.8 FL 95.5 FL Mean Corpuscular Hemoglobin 32.5 PG 32.4 PG Mean Corpuscular Hemoglobin Concent 34.3 % 34.0 % Red Cell Distribution Width 18.8 % 19.3 % Platelet Count 143 TH/MM3 142 TH/MM3 Mean Platelet Volume 7.6 FL 7.7 FL Neutrophils (%) (Auto) 89.6 % Lymphocytes (%) (Auto) 1.8 % Monocytes (%) (Auto) 8.4 % Eosinophils (%) (Auto) 0.0 % Basophils (%) (Auto) 0.2 % Neutrophils # (Auto) 5.0 TH/MM3 Lymphocytes # (Auto) 0.1 TH/MM3 Monocytes # (Auto) 0.5 TH/MM3 Eosinophils # (Auto) 0.0 TH/MM3 Basophils # (Auto) 0.0 TH/MM3 CBC Comment DIFF FINAL Differential Comment Laboratory Tests Test 07/19/17 08:32 07/20/17 11:10 Blood Urea Nitrogen 18 MG/DL 20 MG/DL Creatinine 1.01 MG/DL 1.07 MG/DL Random Glucose 99 MG/DL 209 MG/DL Calcium Level 8.5 MG/DL 8.2 MG/DL Sodium Level 131 MEQ/L 129 MEQ/L Potassium Level 3.9 MEQ/L 3.6 MEQ/L Chloride Level 93 MEQ/L 91 MEQ/L Carbon Dioxide Level 29.4 MEQ/L 28.4 MEQ/L Anion Gap 9 MEQ/L 10 MEQ/L Estimat Glomerular Filtration Rate 75 ML/MIN 70 ML/MIN Iron Level 47 MCG/DL Total Iron Binding Capacity 256 MCG/DL Percent Iron Saturation 18.3 % Ferritin 117 NG/ML Vitamin B12 Level 1678 PG/ML Folate 13.2 NG/ML Microbiology Date/Time Source Procedure Growth Status 07/17/17 16:30 Sputum Expectorated Sputum Gram Stain - Final Complete 07/17/17 16:30 Sputum Culture - Final Pseudomonas Aeruginosa Complete 07/17/17 18:15 Urine Random Urine Legionella Antigen - Final PRESUMPTIVE NEGATIVE FOR LEGIONELLA P... Complete 07/17/17 18:15 Urine Random Urine Streptococcus pneumoniae Antigen (M - Final PRESUMPTIVE NEGATIVE FOR STREPTOCOCCU... Complete IMAGING: Reviewed. Lower Extremity Ultrasound 07/17/17 0000 Signed Impressions: Service Date/Time: Monday, July 17, 2017 08:00 - CONCLUSION: No evidence of deep venous thrombosis within the right lower extremity. Rodrigo Michel MD Foot X-Ray 07/17/17 0000 Signed Impressions: Service Date/Time: Monday, July 17, 2017 07:51 - CONCLUSION: 1. Unremarkable radiographs of the right foot. Cameron Lemus MD Chest X-Ray 07/17/17 0000 Signed Impressions: Service Date/Time: Monday, July 17, 2017 07:56 - CONCLUSION: Left midlung zone airspace consolidation consistent with pneumonia. Recommend followup to resolution to exclude a post obstructive process. Cameron Lemus MD PHYSICAL EXAMINATION: GENERAL: No acute distress. Alert and oriented. HEENT: No icterus. Oropharynx moist mucosa. LUNGS: Mild wheezing at both bases. HEART: Regular S1 and S2, without murmurs, rubs or gallops. ABDOMEN: Bowel sounds present, soft, nontender. EXTREMITIES: No clubbing, cyanosis or edema. Ecchymosis of the right foot at the lateral dorsum and brown area of discoloration at the inner aspect along the dorsum on both sides of toes 2, 3, and 4 sparing of the central top Area of the dorsum. SKIN: No rash. NEUROLOGIC: Nonfocal. PSYCHIATRIC: Calm and cooperative. IMPRESSION: 1. Pneumonia due to Pseudomonas. 2. History of lung cancer. 3. Abnormal changes of the foot, but this looks more like ecchymosis rather than necrosis or infection related. Clinically stable. RECOMMENDATIONS: Change to cefepime to oral Levaquin. Okay to discharge patient on oral Levaquin for 14 days. Follow-up chest x-ray as outpatient. Herve Zarate MD Jul 20, 2017 15:08
[2017-07-20 16:07] VITALS: BP 157/78; PULSE 74; RESP 16; TEMP 97.6; O2SAT 95
[2017-07-20] MEDS: ENOXAPARIN SODIUM 40 MG/0.4 ML SYRINGE SQ SCH (17:00)
[2017-07-20] MEDS ORDERED: GETGO ROLLING W1 MI1 (17:42)
== END 2017-07-20 20:52 | disposition home health service (06) | DRG 178 ==
LOC: NEPE 07:32 → NEDA 09:21 → NEPGCP 14:43 → OBSVTOIN 07-20 12:54
PROVIDERS: ADMIT Hospitalist; ATTEND Hospitalist
DX: J15.1 Pneumonia due to Pseudomonas (principal); J44.0 Chronic obstructive pulmonary disease with (acute) lower respiratory infection; Z99.81 Dependence on supplemental oxygen; D89.9 Disorder involving the immune mechanism, unspecified; C34.90 Malignant neoplasm of unspecified part of unspecified bronchus or lung; E87.1 Hypo-osmolality and hyponatremia; I73.9 Peripheral vascular disease, unspecified; I10 Essential (primary) hypertension; R60.0 Localized edema; R63.4 Abnormal weight loss; I25.10 Atherosclerotic heart disease of native coronary artery without angina pectoris; M19.90 Unspecified osteoarthritis, unspecified site; F32.9 Major depressive disorder, single episode, unspecified; F41.9 Anxiety disorder, unspecified; F17.200 Nicotine dependence, unspecified, uncomplicated; E78.5 Hyperlipidemia, unspecified; Z66 Do not resuscitate; Z95.5 Presence of coronary angioplasty implant and graft; Z92.3 Personal history of irradiation
CPT/HCPCS: 71045; 71046; 73630; 80048; 80053; 81001; 82607; 82728; 82746; 83540; 83550; 83605; 85025; 85027; 87040; 87070; 87077; 87186; 87205; 87449; 93971; 94664; 96365; 96366; 96376; G0378; G8987-GP; G8988-GP; J0456; J0692; J1650; J7050; J7512

== ENCOUNTER 2017-08-29 15:25 | Inpatient (IN) | payer OTHER, MEDICARE ==
[2017-08-29] VITALS (30 sets, daily range): BP systolic 85–173; BP diastolic 59–101; PULSE 84–182; RESP 14–32; TEMP 93.6; O2SAT 94–100
[~2017-08-29] VITALS: Ht 165.1 cm; Wt 58.5 kg
[~2017-08-29 15:25] MED LIST changes: -CENTCHW4 CHEW; +CENTCHW4 PO; -CYAN1TAB24; +CYAN1TAB24 PO; -LORC10TA PO; -MAGICADU2 SWISH-SWAL; -PANT40TA3 PO; +RANI300T PO; -WALKER WHEELS/F1 MIS
[2017-08-29] MEDS: SODIUM CHLOR 0.9% 1000 ML INJ 1,000 ML IV SCH ×2 (15:42→20:45)
--- NOTE | 2017-08-29 15:44 | PD ---
HPI Chief Complaint: Respiratory Symptoms Time Seen by Provider: 15:30 Travel History International Travel<30 days: No Contact w/Intl Traveler<30days: No Traveled to known affect area: No History of Present Illness HPI 61-year-old male complains of shortness of breath. Patient states that he started having shortness breath since last night. Patient denies any coughing congestion. Patient denies any chest pain. Patient denies any fever chills. Patient has history of CAD status post stent placement. Patient has history of hypertension. Patient denies history of diabetes. Patient has history of hyperlipidemia. EMS was called. Patient was found in A. fib with RVR. Rate 170. Patient was given Cardizem 20 mg IV prior to arrival. Patient states that he is feeling better now. Patient complains of generalized malaise and weakness also. Patient has history of lung cancer status post radiation treatment.. Patient also has history of hypertension, coronary artery disease, COPD. PFSH Past Medical History Asthma: No Autoimmune Disease: No Blood Disorders: No Anxiety: Yes Depression: Yes Heart Rhythm Problems: No Cancer: Yes (LEFT LUNG ) Cardiac Catheterization: Yes Cardiovascular Problems: Yes (PAD) High Cholesterol: No Chemotherapy: Yes Chest Pain: No Congestive Heart Failure: No COPD: Yes Diabetes: No Diminished Hearing: Yes Endocrine: No Genitourinary: Yes Hypertension: Yes Immune Disorder: No Implanted Vascular Access Dvce: Yes Musculoskeletal: Yes Neurologic: No Psychiatric: Yes Reproductive: No Respiratory: Yes (LEFT LUNG CANCER) Myocardial Infarction: No Radiation Therapy: Yes Sleep Apnea: No Thyroid Disease: No ?: Not Past Surgical History Abdominal Surgery: Yes AICD: No Arteriovenous Shunt: No Eye Surgery: Yes (CATARACT REMOVAL BILATERAL) Insulin Pump: No Joint Replacement: No Oral Surgery: Yes Pacemaker: No Other Surgery: Yes Social History Alcohol Use: No Tobacco Use: Yes Substance Use: No Allergies-Medications (Allergen,Severity, Reaction): Coded Allergies: No Known Allergies (Verified Allergy, Unknown, 08/29/17) Reported Meds & Prescriptions Reported Meds & Active Scripts Active Sodium Chloride 1 Gram Tab 1 Gm PO DAILY Aspirin DR (Aspirin) 81 Mg Tabdr 81 Mg PO DAILY Oxygen (O2) Device Liter RADHA.CANULA CONTINUOUS Oxygen Concentrator Portable Gaseous 2 L/min via Nasal Canula Continuous For 99 months [Budeson-Formot 160-4.5 Mcg Inh] 60 PUFF Aero 1 Puff INH Q12HR Lisinopril 5 Mg Tab 5 Mg PO DAILY Cardizem CD 24 HR (Diltiazem CD 24 HR) 240 Mg Caper 240 Mg PO DAILY Lopressor (Metoprolol Tartrate) 50 Mg Tab 50 Mg PO Q12HR Reported Lasix (Furosemide) 20 Mg Tab 20 Mg PO DAILY Ranitidine (Ranitidine HCl) 150 Mg Cap 150 Mg PO BID Centrum (Multiple Vitamins W/ Minerals) 1 Chew 1 Tab PO DAILY B12 (Cyanocobalamin) 1,000 Mcg Tab 1,000 Mcg PO DAILY Anoro Ellipta Inh (Umeclidinium/Vilanterol) 62.5-25 Mcg/Act Aero 1 Puff INH DAILY Lovastatin 10 Mg Tab 10 Mg PO DAILY Clopidogrel (Clopidogrel Bisulfate) 75 Mg Tab 75 Mg PO DAILY Review of Systems General / Constitutional: No: Fever Eyes: No: Visual changes HENT: No: Headaches Cardiovascular: No: Chest Pain or Discomfort Respiratory: Positive: Shortness of Breath Gastrointestinal: No: Abdominal Pain Genitourinary: No: Dysuria Musculoskeletal: No: Pain Skin: No Rash Neurologic: No: Weakness Psychiatric: No: Depression Endocrine: No: Polydipsia Hematologic/Lymphatic: No: Easy Bruising Physical Exam Narrative GENERAL: Well-nourished, well-developed patient. SKIN: Focused skin assessment warm/dry. HEAD: Normocephalic. EYES: No scleral icterus. No injection or drainage. NECK: Supple, trachea midline. No JVD or lymphadenopathy. CARDIOVASCULAR: Mild tachycardia rate and rhythm without murmurs, gallops, or rubs. RESPIRATORY: Patient has mild to moderate expiratory wheezes bilaterally. Rhonchi at the bases. Patient is tachypneic. GASTROINTESTINAL: Abdomen soft, non-tender, nondistended. MUSCULOSKELETAL: No cyanosis, or edema. BACK: Nontender without obvious deformity. No CVA tenderness. Neurologic exam: Patient is awake and alert oriented 3. No obvious focal neurological deficit. Data Data Last Documented VS Vital Signs Date Time Temp Pulse Resp B/P (MAP) Pulse Ox O2 Delivery O2 Flow Rate FiO2 08/29/17 18:30 94 100 08/29/17 18:23 154 171/100 08/29/17 18:06 32 Non-Rebreather 15.00 Orders Orders Electrocardiogram (08/29/17 15:30) Complete Blood Count With Diff (08/29/17 15:30) Comprehensive Metabolic Panel (08/29/17 15:30) Creatine Kinase (Cpk) (08/29/17 15:30) Troponin I (08/29/17 15:30) B-Type Natriuretic Peptide (08/29/17 15:30) Prothrombin Time / Inr (Pt) (08/29/17 15:30) Act Partial Throm Time (Ptt) (08/29/17 15:30) Thyroid Stimulating Hormone (08/29/17 15:30) Chest, Single Ap (08/29/17 15:30) Iv Access Insert/Monitor (08/29/17 15:30) Ecg Monitoring (08/29/17 15:30) Oximetry (08/29/17 15:30) Sodium Chlor 0.9% 1000 Ml Inj (Ns 1000 M (08/29/17 15:30) Acetamin-Hydrocod 325-5 Mg ([place] 5-325 (08/29/17 17:30) Adenosine Inj (Adenocard Inj) (08/29/17 17:33) Adenosine Inj (Adenocard Inj) (08/29/17 17:35) Adenosine Inj (Adenocard Inj) (08/29/17 17:37) Adenosine Inj (Adenocard Inj) (08/29/17 17:37) Midazolam Inj (Versed Inj) (08/29/17 17:41) Amiodarone Inj (Cordarone Inj) (08/29/17 17:47) Succinylcholine Inj (Quelicin Inj) (08/29/17 17:56) Etomidate Inj (Amidate Inj) (08/29/17 17:57) Albuterol-Ipratropium Neb (Duoneb Neb) (08/29/17 18:00) Ecg Monitoring (08/29/17 17:58) Blood Pressure (08/29/17 17:58) Vital Signs (08/29/17 17:58) Iv Access Insert/Monitor (08/29/17 17:58) Oximetry (08/29/17 17:58) Dextrose 5% In [place]... W/Amiodarone Inj (08/29/17 17:58) Dextrose 5% In [place]... W/Amiodarone Inj (08/29/17 18:13) Sodium Chloride 0.9% Flush (Ns Flush) (08/29/17 18:00) Sodium Chlor 0.9% (... W/Amiodarone Inj (08/29/17 18:13) Propofol 500 Mg/50 Ml Inj (Diprivan 500 (08/29/17 18:21) Fentanyl Drip (Fentanyl Drip) (08/29/17 18:30) Propofol 1000 Mg/100 Ml Inj (Diprivan 10 (08/29/17 18:30) Chest, Single Ap (08/29/17 18:31) Urinary Catheter Insert/Apply (08/29/17 18:31) Kamryn-Gastric Tube Insert/Mon (08/29/17 18:31) Arterial Blood Gas (Abg) (08/29/17 ) Urinalysis - C+S If Indicated (08/29/17 18:45) Inpatient Certification (08/29/17 18:41) ^ Medication Admin Instruction (08/29/17 18:41) Notify Dr: Other (08/29/17 18:41) Potassium Chlor 40 Meq Premix (Kcl 40 Me (08/29/17 18:45) Potassium Chlor 20 Meq Premix (Kcl 20 Me (08/29/17 18:45) Potassium Chloride Eff (K-Lyte Cl Eff) (08/29/17 18:45) Potassium Chlor 40 Meq Premix (Kcl 40 Me (08/29/17 18:45) Potassium Chlor 20 Meq Premix (Kcl 20 Me (08/29/17 18:45) Magnesium Sulfate Inj (Magnesium Sulfate (08/29/17 18:45) Magnesium Oxide (Mag-Ox) (08/29/17 18:45) Magnesium Sulfate Inj (Magnesium Sulfate (08/29/17 18:45) Potassium Phosphate (K-Phos) (08/29/17 18:45) Sodium Phosphate Inj (Sodium Phosphate I (08/29/17 18:45) Potassium Phosphate (K-Phos) (08/29/17 18:45) Potassium Phosphate Inj (Potassium Phosp (08/29/17 18:45) Chlorhexidine 0.12% Liq (Peridex 0.12% L (08/29/17 20:00) Resp Ventilation- Volume (4/28/18 ) Ventilator Weaning Readiness SUKI.DAILY@0800 (08/29/17 18:41) Elevate Head Of Bed (08/29/17 18:41) Restraints Non-Violent SUKI.Q3H (08/29/17 18:41) Cbc No Diff, Includes Plts (08/30/17 05:00) Cbc No Diff, Includes Plts (08/31/17 05:00) Cbc No Diff, Includes Plts (09/01/17 05:00) Cbc No Diff, Includes Plts (09/02/17 05:00) Cbc No Diff, Includes Plts (09/03/17 05:00) Cbc No Diff, Includes Plts (09/04/17 05:00) Cbc No Diff, Includes Plts (09/05/17 05:00) Basic Metabolic Panel (Bmp) (08/30/17 05:00) Basic Metabolic Panel (Bmp) (08/31/17 05:00) Basic Metabolic Panel (Bmp) (09/01/17 05:00) Basic Metabolic Panel (Bmp) (09/02/17 05:00) Basic Metabolic Panel (Bmp) (09/03/17 05:00) Basic Metabolic Panel (Bmp) (09/04/17 05:00) Basic Metabolic Panel (Bmp) (09/05/17 05:00) Bedside Glucose SUKI.Q6H (08/29/17 18:41) Blood Glucose Goal (Criteria) (08/29/17 18:41) Hypoglycemia 51 - 69 Mg/Dl (08/29/17 18:41) Hypoglycemia 50 Mg/Dl Or < (08/29/17 18:41) Notify Dr: Other (08/29/17 18:41) Dextrose 50% In [place] (Vial) Inj (D50w (Vi (08/29/17 18:45) Insulin Human Reg Supp Scale (Novolin R (08/30/17 00:00) Sputum Culture And Gram Stain (08/29/17 18:41) ^ Other Nursing Orders (08/29/17 18:41) Blood Culture (08/29/17 18:41) Specimen To Be Collected PRN (08/29/17 18:41) Albuterol-Ipratropium Neb (Duoneb Neb) (08/29/17 22:00) Albuterol-Ipratropium Neb (Duoneb Neb) (08/29/17 18:45) Vancomycin Inj (Vancomycin Inj) (08/29/17 18:45) Vancomycin Consult Pharmacy (Vancomycin (08/29/17 18:45) Piperacil-Tazo 4.5 Gm Premix (Zosyn 4.5 (08/29/17 18:45) Azithromycin Inj (Zithromax Inj) (08/29/17 20:00) Magnesium Sulfate 1 Gm Premix (Magnesium (08/29/17 18:45) Magnesium (Mg) (08/29/17 18:41) Phosphorus (Po4) (08/29/17 18:41) Creatine Kinase (Cpk) (08/29/17 23:59) Ckmb (Isoenzyme) Profile (08/29/17 23:59) Troponin I (08/29/17 23:59) Code Status (08/29/17 18:41) Vital Signs (Adult) SUKI.Q1H (08/29/17 18:41) Activity Bed Rest (08/29/17 18:41) Elevate Head Of Bed (08/29/17 18:41) Neuro Checks . ORDERED (08/29/17 18:41) Intake + Output Q1H (08/29/17 18:41) ^ Orogastric Tube (08/29/17 18:41) Diet Npo (08/29/17 Dinner) Sodium Chlor 0.9% 1000 Ml Inj (Ns 1000 M (08/29/17 18:41) Famotidine (Pepcid) (08/29/17 21:00) Ondansetron Inj (Zofran Inj) (08/29/17 18:45) Felt Strip Finisher / Telemetry SUKI.Q8H (08/29/17 18:41) Scd Bilateral/Knee High SUKI.BID (08/29/17 18:41) ^ Initiate Protocol (08/29/17 18:41) Instruction (08/29/17 18:41) Nursing Information ([facility] Nursing Inform (08/29/17 18:45) Chlorhexidine 2% Cloth (Chlorhexidine 2% (08/30/17 04:00) Chlorhexidine 2% Cloth (Chlorhexidine 2% (08/29/17 18:45) Mrsa Pcr Surveillance (08/29/17 18:41) Docusate Sodium-Senna (Nata-Colace) (08/29/17 21:00) Magnesium Hydroxide Liq (Milk Of Magnesi (08/29/17 18:45) Ct Pulmonary Angiogram (08/29/17 18:49) Admit Order (Ed Use Only) (08/29/17 18:50) Consult Palliative Care (08/29/17 ) Labs Laboratory Tests Test 08/29/17 15:40 White Blood Count 8.6 TH/MM3 Red Blood Count 2.86 MIL/MM3 Hemoglobin 8.6 GM/DL Hematocrit 26.0 % Mean Corpuscular Volume 90.8 FL Mean Corpuscular Hemoglobin 30.2 PG Mean Corpuscular Hemoglobin Concent 33.3 % Red Cell Distribution Width 20.1 % Platelet Count 299 TH/MM3 Mean Platelet Volume 7.5 FL Neutrophils (%) (Auto) 80.7 % Lymphocytes (%) (Auto) 5.1 % Monocytes (%) (Auto) 11.8 % Eosinophils (%) (Auto) 2.1 % Basophils (%) (Auto) 0.3 % Neutrophils # (Auto) 7.0 TH/MM3 Lymphocytes # (Auto) 0.4 TH/MM3 Monocytes # (Auto) 1.0 TH/MM3 Eosinophils # (Auto) 0.2 TH/MM3 Basophils # (Auto) 0.0 TH/MM3 CBC Comment DIFF FINAL Differential Comment Prothrombin Time 11.1 SEC Prothromb Time International Ratio 1.1 RATIO Activated Partial Thromboplast Time 31.3 SEC Blood Urea Nitrogen 13 MG/DL Creatinine 1.10 MG/DL Random Glucose 125 MG/DL Total Protein 6.7 GM/DL Albumin 2.7 GM/DL Calcium Level 8.4 MG/DL Alkaline Phosphatase 97 U/L Aspartate Amino Transf (AST/SGOT) 13 U/L Alanine Aminotransferase (ALT/SGPT) 15 U/L Total Bilirubin 0.4 MG/DL Sodium Level 137 MEQ/L Potassium Level 4.1 MEQ/L Chloride Level 101 MEQ/L Carbon Dioxide Level 24.8 MEQ/L Anion Gap 11 MEQ/L Estimat Glomerular Filtration Rate 68 ML/MIN Total Creatine Kinase 36 U/L Troponin I 0.03 NG/ML B-Type Natriuretic Peptide 753 PG/ML Thyroid Stimulating Hormone 3rd Gen 2.230 uIU/ML MDM Medical Decision Making Medical Screen Exam Complete: Yes Emergency Medical Condition: Yes Interpretation(s) EKG shows sinus tachycardia with nonspecific ST-T wave change. Rate 114. Review on EKG from EMS, patient could be in atrial fibrillation with RVR or could be SVT. Last Impressions Chest X-Ray 08/29/17 1530 Signed Impressions: Service Date/Time: Tuesday, August 29, 2017 15:50 - CONCLUSION: 1. Consolidative changes left mid lung with volume loss. Treatment and followup to resolution using serial radiographs. If this does not resolve a CT chest may be warranted. Pk Bae MD 1855 PM. CBC WBC 8.6. Hemoglobin 8.6 hematocrit 26.0. 80 neutrophil. Patient is at baseline. BNP 753. Differential Diagnosis Differential diagnosis includes A. fib with RVR, SVT, V. tach. Narrative Course 61-year-old male complains of shortness of breath since last night. EMS was called and patient was in atrial fibrillation with RVR rate 170. Cardizem 20 mg IV given. Upon arrival patient in mild sinus tachycardia. Rate 114. Patient has tachycardia rate with the rate in the 180s. Adenosine 6 mg IV given and potassium 12 mg IV given 2. Patient has transient sinus rhythm and back to tachycardia again. EKG was repeated and patient in A. fib with RVR. Amiodarone 150 mg IV bolus and continue with amiodarone drip. Patient started having respiratory distress. Patient was intubated. Critical Care Narrative Aggregate critical care time was 100 minutes. Time to perform other separately billable procedures was not included in the critical care time. My time did not include minutes spent treating any other patients simultaneously or on activities that did not directly contribute to the patient's treatment. The services I provided to this patient were to treat and/or prevent clinically significant deterioration that could result in: I provided critical care services requiring my management, as noted below: Chart data review, documentation time, medication orders and management, vital sign assessments/reviewing monitor data, ordering and reviewing lab tests, ordering and interpreting/reviewing x-rays and diagnostic studies, care of the patient and discussion of the patient with the admitting physicians. Procedures Procedure Narrative After the risks and benefits were discussed the following procedure was performed: INTUBATION: The patient was put in optimal position for the procedure. Rapid sequence intubation was initiated by me using 20 milligrams of etomidate IV and 100 milligrams of succinylcholine IV. The patient was intubated with a 7.5 cuffed endotracheal tube. Tube placement was confirmed by visualization of the tube and balloon passing through the cords, capnometry and subsequent chest x- ray. Breath sounds were equal and well aerated bilaterally postintubation. No breath sounds over stomach. Patient tolerated procedure well. Diagnosis Primary Impression: Atrial fibrillation with RVR Additional Impressions: Respiratory failure Qualified Codes: J96.00 - Acute respiratory failure, unspecified whether with hypoxia or hypercapnia PNA (pneumonia) Qualified Codes: J18.1 - Lobar pneumonia, unspecified organism Admitting Information Admitting Physician Requests: Admit Zoran Adamson MD Aug 29, 2017 15:44
[2017-08-29 15:59] LABS: BASOPHIL % 0.3 % (0.0-2.0); EOSINOPHIL # 0.2 TH/MM3 (0-0.4); EOSINOPHIL % 2.1 % (0.0-4.0); HEMOGLOBIN 8.6 GM/DL (13.0-17.0); LYMPH % 5.1 % (9.0-44.0); LYMPHOCYTE # 0.4 TH/MM3 (1.0-4.8); MEAN CELL VOLUME 90.8 FL (80.0-100.0); MEAN CORPUSCULAR HEMOGLOBIN 30.2 PG (27.0-34.0); MEAN CORPUSCULAR HGB CONC 33.3 % (32.0-36.0); MEAN PLATELET VOLUME 7.5 FL (7.0-11.0); MONO % 11.8 % (0.0-8.0); NEUT % 80.7 % (16.0-70.0); PLATELET COUNT 299 TH/MM3 (150-450); RED BLOOD COUNT 2.86 MIL/MM3 (4.50-5.90); RED CELL DISTRIBUTION WIDTH 20.1 % (11.6-17.2); WHITE BLOOD COUNT 8.6 TH/MM3 (4.0-11.0)
--- NOTE | 2017-08-29 16:06 | RADRPT ---
EXAM DATE/TIME: 08/29/2017 15:50 [facility] COMPARISON: CHEST SINGLE AP, April 18, 2017, 4:32. CHEST SINGLE AP, April 08, 2017, 4:32. CHEST PA & LAT, July 20, 2017, 14:07. CHEST SINGLE AP, July 17, 2017, 7:56. INDICATIONS : Shortness of breath. MEDICAL HISTORY : Hypertension. SURGICAL HISTORY : Stents. ENCOUNTER: Initial ACUITY: 1 day PAIN SCORE: 4 LOCATION: Bilateral chest FINDINGS: A single view of the chest demonstrates consolidative changes left mid lung. There is volume loss in the left. Interstitial densities in lung bases. Heart normal in size. Osseous structures are intact. CONCLUSION: 1. Consolidative changes left mid lung with volume loss. Treatment and followup to resolution using s erial radiographs. If this does not resolve a CT chest may be warranted. Pk Bae MD on August 29, 2017 at 16:02 Board Certified Radiologist. This report was verified electronically.
[2017-08-29 16:13] LABS: INTERNATIONAL NORMALIZED RATIO 1.1 RATIO; PROTHROMBIN TIME - PATIENT 11.1 SEC (9.8-11.6)
[2017-08-29] MEDS ORDERED: RANI150C PO (16:15)
[2017-08-29] MEDS ORDERED: FURO1TAB62 PO (16:15)
[2017-08-29 16:24] LABS: ALBUMIN 2.7 GM/DL (3.4-5.0); ALT (GPT) 15 U/L (12-78); AST (GOT) 13 U/L (15-37); BICARBONATE 24.8 MEQ/L (21.0-32.0); BLOOD UREA NITROGEN 13 MG/DL (7-18); CALCIUM 8.4 MG/DL (8.5-10.1); CHLORIDE 101 MEQ/L (98-107); GLOMERULAR FILTRATION RATE 68 ML/MIN (>89); GLUCOSE,RANDOM 125 MG/DL (74-106); SODIUM (NA) 137 MEQ/L (136-145)
[2017-08-29 16:34] LABS: ALKALINE PHOSPHATASE 97 U/L (45-117); TOTAL BILIRUBIN ADULT 0.4 MG/DL (0.2-1.0); TOTAL PROTEIN 6.7 GM/DL (6.4-8.2); TROPONIN I 0.03 NG/ML (0.02-0.05)
[2017-08-29] MEDS ORDERED: ACETAMINOPHEN/HYDROcodone 325 MG/5 MG TAB PO ONE (17:30)
[2017-08-29] MEDS ORDERED: ADENOSINE IV SOLN 3 MG/ML 2 ML VIAL ONE ×4 (17:33→17:37)
[2017-08-29] MEDS ORDERED: MIDAZOLAM HCL 5 MG/ML VIAL (1 ML) ONE (17:41)
[2017-08-29] MEDS ORDERED: AMIODARONE HCL 150 MG/3 ML VIAL ONE (17:47)
[2017-08-29] MEDS ORDERED: SUCCINYLCHOLINE CHLORIDE 200 MG/10 ML VIAL ONE (17:56)
[2017-08-29] MEDS ORDERED: ETOMIDATE 40 MG/20 ML VIAL ONE (17:57)
[2017-08-29] MEDS ORDERED: AMIODARONE INJ 150 MG in DEXTROSE 5% IN WATER 100ML INJ 97 ML IV ONE ×4 (17:58→19:20)
[2017-08-29] MEDS: RESP: ALBUTEROL 2.5 MG/IPRATROPIUM 0.5 MG NEB (SCH) INH ×4 (18:00→20:02)
[2017-08-29] MEDS ORDERED: AMIODARONE INJ 450 MG in DEXTROSE 5% IN WATE(EXCEL) INJ 241 ML IV SCH ×2 (18:13)
[2017-08-29] MEDS ORDERED: PROPOFOL 500 MG/50 ML INJ 50 ML ONE (18:21)
[2017-08-29] MEDS: AMIODARONE INJ 450 MG in SODIUM CHLOR 0.9% (EXCEL) INJ 250 ML IV SCH ×2 (18:23→19:32)
[2017-08-29] MEDS ORDERED: POTASSIUM CHLORIDE 25 MEQ EFFERVESCENT TAB PO PRN (18:45)
[2017-08-29] MEDS ORDERED: POTASSIUM PHOSPHATE MONOBASIC 500 MG TAB PO/TUBE PRN (18:45)
[2017-08-29] MEDS ORDERED: VANCOMYCIN INJ 1,100 MG in SODIUM CHLOR 0.9% 250 ML INJ 250 ML IV ONE (18:45)
[2017-08-29] MEDS ORDERED: RESP: ALBUTEROL 2.5 MG/IPRATROPIUM 0.5 MG NEB (PRN) INH (18:45)
[2017-08-29] MEDS ORDERED: Vancomycin Consult Pharmacy 1 EA OTHER SCH (18:45)
[2017-08-29] MEDS ORDERED: NURSING INFORMATION XX SCH (18:45)
[2017-08-29] MEDS ORDERED: MAGNESIUM SULFATE INJ 2 GM in SODIUM CHLORIDE 0.9% INJ 96 ML IV PRN (18:45)
[2017-08-29] MEDS ORDERED: MAGNESIUM OXIDE 400 MG TAB PO PRN (18:45)
[2017-08-29] MEDS ORDERED: SODIUM PHOSPHATE INJ 30 MMOL in SODIUM CHLOR 0.9% 250 ML INJ 240 ML IV PRN (18:45)
[2017-08-29] MEDS ORDERED: DEXTROSE 50% IN WATER 50 ML VIAL(D50) IV PUSH PRN (18:45)
[2017-08-29] MEDS ORDERED: POTASSIUM CHLOR 40 MEQ PREMIX 100 ML IV PRN ×2 (18:45)
[2017-08-29] MEDS ORDERED: CHLORHEXIDINE GLUCONATE 2 % 1 PACK (2 CLOTHS) TOP PRN (18:45)
[2017-08-29] MEDS ORDERED: POTASSIUM PHOSPHATE INJ 30 MMOL in SODIUM CHLOR 0.9% 250 ML INJ 250 ML IV PRN (18:45)
[2017-08-29] MEDS ORDERED: MAGNESIUM HYDROXIDE SUSP 30 ML CUP PO PRN (18:45)
[2017-08-29] MEDS ORDERED: POTASSIUM PHOSPHATE MONOBASIC 500 MG TAB PO PRN (18:45)
[2017-08-29] MEDS ORDERED: MAGNESIUM SULFATE INJ 4 GM in SODIUM CHLORIDE 0.9% INJ 92 ML IV PRN (18:45)
--- NOTE | 2017-08-29 18:54 | RADRPT ---
EXAM DATE/TIME: 08/29/2017 18:37 [facility] COMPARISON: CHEST SINGLE AP, August 29, 2017, 15:50. INDICATIONS : Post ET tube placement. MEDICAL HISTORY : Hypertension. SURGICAL HISTORY : Stents. ENCOUNTER: Subsequent ACUITY: 1 day PAIN SCORE: Non-responsive. LOCATION: Bilateral chest FINDINGS: ET tube and NG tube are well placed. The tip of ET tube is 6 cm from the evelia. There is focal mass or consolidation seen in the left perihilar region. There is diffuse increased interstitial markings. There is elevation of the left hemidiaphragm. CONCLUSION: 1. ET tube and NG tube in good position. 2. Mass like area versus consolidation seen in the left perihilar region. 3. Diffuse increased interstitial markings likely related to edema. Dmitri Echeverria MD on August 29, 2017 at 18:49 Board Certified Radiologist. This report was verified electronically.
[2017-08-29] MEDS: fentaNYL DRIP 250 ML IV PRN (19:10)
[2017-08-29 19:23] LABS: MAGNESIUM 1.7 MG/DL (1.5-2.5); PHOSPHORUS 2.6 MG/DL (2.5-4.9)
[2017-08-29] MEDS ORDERED: ADENOSINE IV SOLN 3 MG/ML 2 ML VIAL IV PUSH ONE ×3 (19:30)
[2017-08-29] MEDS ORDERED: SODIUM CHLOR 0.9% 1000 ML INJ 1,000 ML IV ONE (19:30)
[2017-08-29] MEDS ORDERED: MIDAZOLAM HCL 5 MG/ML VIAL (1 ML) IV PUSH ONE (19:30)
[2017-08-29] MEDS ORDERED: SUCCINYLCHOLINE CHLORIDE 100 MG/5 ML SYRINGE IV PUSH ONE (19:30)
[2017-08-29] MEDS ORDERED: ETOMIDATE 20 MG/10 ML VIAL IV PUSH ONE (19:30)
[2017-08-29] MEDS ORDERED: IOHEXOL 350 MG/ML 10 ML VIAL (for RAD DIAG) IVCONTRAST ONE (19:36)
--- NOTE | 2017-08-29 19:50 | RADRPT ---
EXAM DATE/TIME: 08/29/2017 19:36 [facility] COMPARISON: CHEST SINGLE AP, August 29, 2017, 18:37. CT PULMONARY ANGIOGRAM, April 05, 2017, 20:05. INDICATIONS : Respiratory distress. IV CONTRAST: 60 cc Omnipaque 350 (iohexol) IV RADIATION DOSE: 10.13 CTDIvol (mGy) MEDICAL HISTORY : Hypertension. Chronic obstructive pulmonary disease. Carcinoma, lung. SURGICAL HISTORY : None. ENCOUNTER: Initial ACUITY: 1 day PAIN SCALE: Non-responsive LOCATION: Bilateral chest TECHNIQUE: Volumetric scanning of the chest was performed using a pulmonary embolism protocol MIP images were re constructed. Using automated exposure control and adjustment of the mA and/or kV according to patien t size, radiation dose was kept as low as reasonably achievable to obtain optimal diagnostic quality images. DICOM format image data is available electronically for review and comparison. Follow-up recommendations for detected pulmonary nodules are based at a minimum on nodule size and pa tient risk factors according to Fleischner Society Guidelines. FINDINGS: PULMONARY ARTERIES: No filling defects are seen in the pulmonary arteries through the segmental level. LUNGS: There is extensive bilateral multilobar consolidation. No concerning pulmonary nodule is visualized. PLEURAE: There is no pleural thickening or pleural effusion. MEDIASTINUM: There is good visualization of the great vessels of the middle mediastinum. No evidence of mediastin al or hilar adenopathy/mass. Extensive coronary artery calcifications. MUSCULOSKELETAL: Within normal limits for patient age. MISCELLANEOUS: The visualized upper abdominal organs demonstrate no acute abnormality. CONCLUSION: 1. Multilobar consolidation. 2. No evidence for pulmonary embolism. 3. Extensive coronary calcifications Pk Bae MD on August 29, 2017 at 19:45 Board Certified Radiologist. This report was verified electronically.
[2017-08-29] MEDS: CHLORHEXIDINE 0.12% (ORAL KIT) 15 ML CUP MT SCH (20:00)
[2017-08-29] MEDS ORDERED: VANCOMYCIN 1,000 MG/NS 250 ML IV ONE ×2 (20:00)
[2017-08-29 20:44] LABS: BILIRUBIN, URINE NEG (NEG); BLOOD, URINE NEG (NEG); GLUCOSE,URINE NEG (NEG); HYALINE CAST, URINE 2 /lpf (RARE); KETONE, URINE NEG (NEG); NITRITE,URINE NEG (NEG); PH, URINE 7.5 (5.0-8.5); URINE COLOR LIGHT-YELLOW (YELLW/STRAW); URINE LEUKOCYTE ESTERASE NEG (NEG)
[2017-08-29] MEDS: PIPERACIL-TAZO 4.5 GM PREMIX 100 ML IV SCH (20:45)
[2017-08-29] MEDS: PROPOFOL 1000 MG/100 ML INJ 100 ML IV PRN (20:46)
[2017-08-29] MEDS: AZITHROMYCIN INJ 500 MG in SODIUM CHLOR 0.9% 250 ML INJ 250 ML IV SCH (20:46)
--- NOTE | 2017-08-29 20:56 | HHI.HP ---
HPI Service Critical Care Medicine Primary Care Physician Non-Staff Admission Diagnosis Respiratory failure. A. fib with RVR. Diagnosis: Travel History International Travel<30 Days: No Contact w/Intl Traveler <30 Da: No Traveled to Known Affected Are: No History of Present Illness This is a 61-year-old male with a history of lung cancer undergoing current chemotherapy and radiation who was recently admitted on 07/19 for aspiration pneumonia. During that admission he did have episodes of paroxysmal atrial fibrillation and had an echo from 04/2017 showing an EF of 50-55%. He represents today to the emergency department with acute shortness of breath since last night. Per the ER documentation, he denies any coughing, fever, chills, or other recent symptoms or changes other than the new dyspnea. In the emergency department he was found to be in A. fib with RVR. This initially converted to sinus rhythm 1 after diltiazem 20 mg IV bolus, but then very quickly went back into atrial for ablation with rapid ventricular response. 2 doses of adenosine were not able to convert it. The patient was loaded with amiodarone and infusion was started. After this, the patient become acutely hypoxemic requiring emergent intubation. Please refer to the emergency room physician documentation for additional details regarding the decompensation. When I came to evaluate patient, the patient was recently intubated, sedated. No additional information is available from the patient due to his clinical condition. Review of systems is unobtainable. Critical care medicine is consulted to evaluate manage his acute hypoxic respiratory failure along with his acute supraventricular tachycardia. Review of Systems ROS Limitations: Clinical Condition, Intubated, Altered Mental Status Past Family Social History Allergies: Coded Allergies: No Known Allergies (Verified Allergy, Unknown, 08/29/17) Past Medical History Lung cancer the left lung currently undergoing chemoradiation Anxiety Depression Coronary artery disease Peripheral arterial disease COPD Hypertension Past Surgical History Bilateral cataract removal Prior abdominal surgery, unknown type, as documented in the medical record. Reported Medications Sodium Chloride 1 Gram Tab 1 Gm PO DAILY Aspirin DR (Aspirin) 81 Mg Tabdr 81 Mg PO DAILY Oxygen (O2) Device Liter RADHA.CANULA CONTINUOUS Oxygen Concentrator Portable Gaseous 2 L/min via Nasal Canula Continuous For 99 months [Budeson-Formot 160-4.5 Mcg Inh] 60 PUFF Aero 1 Puff INH Q12HR Lisinopril 5 Mg Tab 5 Mg PO DAILY Cardizem CD 24 HR (Diltiazem CD 24 HR) 240 Mg Caper 240 Mg PO DAILY Lopressor (Metoprolol Tartrate) 50 Mg Tab 50 Mg PO Q12HR Lasix (Furosemide) 20 Mg Tab 20 Mg PO DAILY Ranitidine (Ranitidine HCl) 150 Mg Cap 150 Mg PO BID Centrum (Multiple Vitamins W/ Minerals) 1 Chew 1 Tab PO DAILY B12 (Cyanocobalamin) 1,000 Mcg Tab 1,000 Mcg PO DAILY Anoro Ellipta Inh (Umeclidinium/Vilanterol) 62.5-25 Mcg/Act Aero 1 Puff INH DAILY Lovastatin 10 Mg Tab 10 Mg PO DAILY Clopidogrel (Clopidogrel Bisulfate) 75 Mg Tab 75 Mg PO DAILY Active Ordered Medications See MAR Family History Unobtainable due to the clinical condition the patient. Unlikely to be contributory to his acute illness. Social History Positive for tobacco use. Physical Exam Vital Signs Vital Signs Date Time Temp Pulse Resp B/P (MAP) Pulse Ox O2 Delivery O2 Flow Rate FiO2 08/29/17 20:51 96 14 113/75 (88) 98 Ventilator 08/29/17 20:45 97 14 110/73 (85) 98 Ventilator 08/29/17 19:39 100 100 08/29/17 19:20 100 70 08/29/17 19:12 100 08/29/17 19:11 120 14 119/72 (88) 100 Ventilator 08/29/17 18:58 116 14 124/81 (95) 100 Ventilator 08/29/17 18:30 94 100 08/29/17 18:23 154 171/100 08/29/17 18:09 161 164/99 08/29/17 18:06 160 32 164/99 (120) 100 Non-Rebreather 15.00 08/29/17 17:52 160 164/99 (120) 08/29/17 17:50 182 155/98 (117) 08/29/17 17:44 160 173/101 (125) 08/29/17 15:33 115 150/80 (103) 08/29/17 15:33 22 95 Nasal Cannula 4.00 08/29/17 15:30 96 4.00 08/29/17 15:27 118 26 154/97 (116) 97 Physical Exam GENERAL: Middle-age male, lying in bed, recently intubated, sedated, critically ill HEENT: Normocephalic. Atraumatic. Pupils equal, round, reactive, conjugate. Mucous membranes are moist NECK: Trachea is midline. There is no JVD. CHEST: Equal chest rise. PRVC. 40% FiO2. No accessory muscle use. Barrel chest. CARDIOVASCULAR: Normal rate, regular rhythm. The patient is converted to normal sinus rhythm on my evaluation with a heart rate of 62. ABDOMEN: Soft, nontender, nondistended. No guarding. MUSCULOSKELETAL: Pulses 2+. No peripheral edema. NEUROLOGICAL: RASS -4. Recently intubated and sedated. Moves all extremities spontaneously. Does not follow commands. Briskly withdraws to pain. Laboratory Laboratory Tests Test 08/29/17 15:40 08/29/17 19:05 08/29/17 19:10 White Blood Count 8.6 Red Blood Count 2.86 Hemoglobin 8.6 Hematocrit 26.0 Mean Corpuscular Volume 90.8 Mean Corpuscular Hemoglobin 30.2 Mean Corpuscular Hemoglobin Concent 33.3 Red Cell Distribution Width 20.1 Platelet Count 299 Mean Platelet Volume 7.5 Neutrophils (%) (Auto) 80.7 Lymphocytes (%) (Auto) 5.1 Monocytes (%) (Auto) 11.8 Eosinophils (%) (Auto) 2.1 Basophils (%) (Auto) 0.3 Neutrophils # (Auto) 7.0 Lymphocytes # (Auto) 0.4 Monocytes # (Auto) 1.0 Eosinophils # (Auto) 0.2 Basophils # (Auto) 0.0 CBC Comment DIFF FINAL Differential Comment Prothrombin Time 11.1 Prothromb Time International Ratio 1.1 Activated Partial Thromboplast Time 31.3 Blood Urea Nitrogen 13 Creatinine 1.10 Random Glucose 125 Total Protein 6.7 Albumin 2.7 Calcium Level 8.4 Alkaline Phosphatase 97 Aspartate Amino Transf (AST/SGOT) 13 Alanine Aminotransferase (ALT/SGPT) 15 Total Bilirubin 0.4 Sodium Level 137 Potassium Level 4.1 Chloride Level 101 Carbon Dioxide Level 24.8 Anion Gap 11 Estimat Glomerular Filtration Rate 68 Phosphorus Level 2.6 Magnesium Level 1.7 Total Creatine Kinase 36 Troponin I 0.03 B-Type Natriuretic Peptide 753 Thyroid Stimulating Hormone 3rd Gen 2.230 Blood Gas Puncture Site LT FOOT Blood Gas Patient Temperature 98.6 Blood Gas HCO3 21 Blood Gas Base Excess -5.4 Blood Gas Oxygen Saturation 97 Arterial Blood pH 7.23 Arterial Blood Partial Pressure CO2 53 Arterial Blood Partial Pressure O2 268 Arterial Blood Oxygen Content 10.7 Arterial Blood Carboxyhemoglobin 1.9 Arterial Blood Methemoglobin 0.6 Blood Gas Hemoglobin 7.3 Oxygen Delivery Device VENTILATOR Blood Gas Ventilator Setting Blood Gas Inspired Oxygen 100 Urine Color LIGHT-YELLOW Urine Turbidity CLEAR Urine pH 7.5 Urine Specific [place] 1.013 Urine Protein 30 Urine Glucose (UA) NEG Urine Ketones NEG Urine Occult Blood NEG Urine Nitrite NEG Urine Bilirubin NEG Urine Urobilinogen LESS THAN 2.0 Urine Leukocyte Esterase NEG Urine RBC 2 Urine WBC 1 Urine Hyaline Casts 2 Microscopic Urinalysis Comment CATH-CULT NOT IND Result Diagram: 08/29/17 1540 08/29/17 [address] Angiography 08/29/17 1849 Signed Impressions: Service Date/Time: Tuesday, August 29, 2017 19:36 - CONCLUSION: 1. Multilobar consolidation. 2. No evidence for pulmonary embolism. 3. Extensive coronary calcifications Pk Bae MD Chest X-Ray 08/29/17 1831 Signed Impressions: Service Date/Time: Tuesday, August 29, 2017 18:37 - CONCLUSION: 1. ET tube and NG tube in good position. 2. Mass like area versus consolidation seen in the left perihilar region. 3. Diffuse increased interstitial markings likely related to edema. Dmitri Echeverria MD Septic Shock Reassessment Septic shock perfusion: reassessment completed Caprini VTE Risk Assessment Caprini VTE Risk Assessment: Mod/High Risk (score >= 2) Caprini Risk Assessment Model Point Value = 1 Point Value = 2 Point Value = 3 Point Value = 5 Age 41-60 Minor surgery BMI > 25 kg/m2 Swollen legs Varicose veins or History of unexplained or recurrent spontaneous Oral contraceptives or hormone replacement Sepsis (< 1 month) Serious lung disease, including pneumonia (< 1 month) Abnormal pulmonary function Acute myocardial infarction Congestive heart failure (< 1 month) History of inflammatory bowel disease Medical patient at bed rest Age 61-74 Arthroscopic surgery Major open surgery (> 45 min) Laparoscopic surgery (> 45 min) Malignancy Confined to bed (> 72 hours) Immobilizing plaster cast Central venous access Age >= 75 History of VTE Family history of VTE Factor V Leiden Prothrombin 14048L Lupus anticoagulant Anticardiolipin antibodies Elevated serum homocysteine Heparin-induced thrombocytopenia Other congenital or acquired thrombophilia Stroke (< 1 month) Elective arthroplasty Hip, pelvis, or leg fracture Acute spinal cord injury (< 1 month) Prophylaxis Regimen Total Risk Factor Score Risk Level Prophylaxis Regimen 0-1 Low Early ambulation 2 Moderate Order ONE of the following: *Sequential Compression Device (SCD) *Heparin 5000 units SQ BID 3-4 Higher Order ONE of the following medications: *Heparin 5000 units SQ TID *Enoxaparin/Lovenox 40 mg SQ daily (WT < 150 kg, CrCl > 30 mL/min) *Enoxaparin/Lovenox 30 mg SQ daily (WT < 150 kg, CrCl > 10-29 mL/min) *Enoxaparin/Lovenox 30 mg SQ BID (WT < 150 kg, CrCl > 30 mL/min) AND/OR *Sequential Compression Device (SCD) 5 or more Highest Order ONE of the following medications: *Heparin 5000 units SQ TID (Preferred with Epidurals) *Enoxaparin/Lovenox 40 mg SQ daily (WT < 150 kg, CrCl > 30 mL/min) *Enoxaparin/Lovenox 30 mg SQ daily (WT < 150 kg, CrCl > 10-29 mL/min) *Enoxaparin/Lovenox 30 mg SQ BID (WT < 150 kg, CrCl > 30 mL/min) AND *Sequential Compression Device (SCD) Assessment and Plan Assessment and Plan Assessment: 61-year-old male with a history of paroxysmal A. fib by prior admissions who presents with new acute shortness of breath and atrial for ablation with rapid ventricular response as well as acute hypoxic respiratory failure requiring intubation mechanical ventilation. Remains critically ill. CT pulmonary gram is negative for PE but does show new infiltrative process. Unclear if this is secondary to radiation pneumonitis or if this is an infectious etiology. We will culture and start empiric antibiotics until more information is obtained. From a cardiac standpoint patient remains in sinus rhythm we will continue amiodarone and trend cardiac enzymes. Given that this is a recurrent paroxysmal atrial fibrillation, we will anticoagulate the patient as he will likely need to be anticoagulated and his chadsvasc score is greater than 2. Plan by systems: Neurologic: -Fentanyl and propofol for goal RASS -2 and ventilator synchrony Respiratory: Acute hypoxic and hypercarbic respiratory failure COPD Lung cancer New left lung consolidation Vent bundle Head of bed elevated Nebs Wean FiO2 for goal SPO2 greater than 90% No SBT or weaning of mechanical ventilation until hypoxemia improves CT pulmonary angiogram 08/29- for acute PE, positive for left lung consolidation Unclear if consolidation is secondary to radiation pneumonitis or new infectious etiology given new symptoms of dyspnea. Cardiovascular: Atrial fibrillation with rapid ventricular response Continue amiodarone infusion Back in sinus rhythm now Aggressive electrolyte replacements Trend troponins, although this is unlikely to be acute coronary syndrome Heparin infusion as the patient's CHADS-VaSC score is > 2, and given prior admissions with atrial fibrillation, this is likely paroxysmal Renal: -- Strict I/Os FEN/GI: Acute protein calorie malnutrition-moderate Hypophosphatemia Hypomagnesemia Aggressive electrolyte replacements Place orogastric tube Will likely need to start tube feeds in the morning Heme/ID: Left lung consolidative process Empirically cover with vancomycin, Zosyn, azithromycin Send blood cultures, sputum cultures, urine culture, urine histo, urine Legionella, urine pneumococcal antigen Very likely could be secondary to radiation pneumonitis, but will need to rule out infectious etiology Endocrine: Hyperglycemia of critical illness -- SSI, medium scale, every 6 Prophylaxis: GI Prophylaxis Pepcid p.o. DVT Prophylaxis -- SCDs Heparin drip Lines: Peripheral IVs are adequate. Dispo: Admit to ICU. Very critically ill. This patient remains critically ill with one or more organ systems which are or may become a threat to life. I have spent in excess of 62 minutes discontinuously in the care and management of this patient. This time is exclusive of procedures, and includes, but is not limited to, evaluation of the patient, review of the medical record, discussions with family, consultants, nursing staff, or respiratory therapy, and documentation in the medical record. Dwain Morton MD Aug 29, 2017 20:56
[2017-08-29] MEDS ORDERED: HEPARIN-D5W 25,000 U/250 ML 250 ML IV PRN (21:00)
[2017-08-30] VITALS (25 sets, daily range): BP systolic 84–123; BP diastolic 63–79; PULSE 74–97; RESP 13–22; TEMP 96–100.3; O2SAT 0–100
--- NOTE | 2017-08-30 00:09 | EKG ---
Date Performed: 08/29/2017 Time Performed: 17:45:04 PTAGE: 61 years EKG: ATRIAL FIBRILLATION WITH RAPID VENTRICULAR RESPONSE LOW QRS VOLTAGE IN EXTREMITY LEADS NONS PECIFIC ST & T-WAVE ABNORMALITY ABNORMAL ECG Compared to PREVIOUS TRACING , now in afib with RVR DOCTOR: Martin Lopez Interpretating Date/Time 08/30/2017 00:08:16
--- NOTE | 2017-08-30 00:18 | EKG ---
Date Performed: 08/29/2017 Time Performed: 15:28:34 PTAGE: 61 years EKG: SINUS TACHYCARDIA WITH OCCASIONAL ECTOPIC PREMATURE COMPLEXES LEFT ATRIAL ENLARGEMENT NON-S PECIFIC ST/T WAVE CHANGES ABNORMAL ECG INTERPRETATION BASED ON A DEFAULT AGE OF 40 YEARS Compared to PREVIOUS TRACING , rate has increased with non-specific ST/T wave changes DOCTOR: Martin Lopez Interpretating Date/Time 08/30/2017 00:17:31
[2017-08-30] MEDS: MAGNESIUM SULFATE 1 GM PREMIX 100 ML IV SCH ×2 (00:34→02:14)
[2017-08-30] MEDS: PROPOFOL 1000 MG/100 ML INJ 100 ML IV PRN ×3 (00:36→17:39)
[2017-08-30] MEDS: DOCUSATE SODIUM 50 MG/SENNA 8.6 MG TAB PO SCH ×3 (00:51→20:05)
[2017-08-30] MEDS: FAMOTIDINE 20 MG TAB PO SCH ×3 (00:51→20:05)
[2017-08-30] MEDS: AZITHROMYCIN INJ 500 MG in SODIUM CHLOR 0.9% 250 ML INJ 250 ML IV SCH (00:52)
[2017-08-30] MEDS: PIPERACIL-TAZO 4.5 GM PREMIX 100 ML IV SCH ×4 (00:52→20:05)
[2017-08-30 00:55] LABS: TROPONIN I 0.16 NG/ML (0.02-0.05)
[2017-08-30] MEDS: RESP: ALBUTEROL 2.5 MG/IPRATROPIUM 0.5 MG NEB (SCH) INH ×2 (03:25→08:00)
[2017-08-30] MEDS: CHLORHEXIDINE GLUCONATE 2 % 1 PACK (2 CLOTHS) TOP SCH (04:00)
[2017-08-30] MEDS: INSULIN NovoLIN REGULAR SUPPLEMENTAL SCALE SQ SCH ×5 (05:46→23:28)
[2017-08-30] MEDS: AMIODARONE INJ 450 MG in SODIUM CHLOR 0.9% (EXCEL) INJ 250 ML IV SCH ×3 (06:00→20:22)
[2017-08-30 08:20] LABS: MEAN CELL VOLUME 91.2 FL (80.0-100.0); MEAN CORPUSCULAR HGB CONC 32.9 % (32.0-36.0); MEAN PLATELET VOLUME 7.3 FL (7.0-11.0); PLATELET COUNT 234 TH/MM3 (150-450); RED CELL DISTRIBUTION WIDTH 20.5 % (11.6-17.2); WHITE BLOOD COUNT 7.7 TH/MM3 (4.0-11.0)
[2017-08-30] MEDS: CHLORHEXIDINE 0.12% (ORAL KIT) 15 ML CUP MT SCH ×2 (08:30→20:07)
[2017-08-30 08:45] LABS: CALCIUM 7.5 MG/DL (8.5-10.1); CREATININE 0.87 MG/DL (0.60-1.30)
[2017-08-30 08:47] LABS: HEMATOCRIT 20.1 % (39.0-51.0); HEMOGLOBIN 6.6 GM/DL (13.0-17.0)
[2017-08-30] MEDS: SODIUM CHLOR 0.9% 1000 ML INJ 1,000 ML IV SCH ×5 (09:00→20:06)
[2017-08-30 09:41] LABS: HEMATOCRIT 20.1 % (39.0-51.0); HEMOGLOBIN 6.6 GM/DL (13.0-17.0)
[2017-08-30] MEDS ORDERED: SODIUM CHLOR 0.9% 250 ML INJ 250 ML IV ONE (10:00)
[2017-08-30] MEDS: RESP: IPRATROPIUM 0.5 MG/2.5 ML NEB NEB SCH ×3 (10:00→21:05)
[2017-08-30] MEDS: RESP: LEVALBUTEROL HYDROCHLORIDE 1.25 MG/3 ML NEB (SCH) NEB ×3 (10:00→21:05)
--- NOTE | 2017-08-30 10:07 | HHI.CCPN ---
Subjective Remarks/Hospital Course 08/29: This is a 61-year-old male with a history of lung cancer undergoing current chemotherapy and radiation who was recently admitted on 07/19 for aspiration pneumonia. During that admission he did have episodes of paroxysmal atrial fibrillation and had an echo from 04/2017 showing an EF of 50-55%. He represents today to the emergency department with acute shortness of breath since last night. Per the ER documentation, he denies any coughing, fever, chills, or other recent symptoms or changes other than the new dyspnea. In the emergency department he was found to be in A. fib with RVR. This initially converted to sinus rhythm 1 after diltiazem 20 mg IV bolus, but then very quickly went back into atrial for ablation with rapid ventricular response. 2 doses of adenosine were not able to convert it. The patient was loaded with amiodarone and infusion was started. After this, the patient become acutely hypoxemic requiring emergent intubation. Please refer to the emergency room physician documentation for additional details regarding the decompensation. When I came to evaluate patient, the patient was recently intubated, sedated. No additional information is available from the patient due to his clinical condition. Review of systems is unobtainable. Critical care medicine is consulted to evaluate manage his acute hypoxic respiratory failure along with his acute supraventricular tachycardia. 08/30: Patient remains intubated and sedated. FiO2 down to 0.5. Patient continues to be on amiodarone infusion and heparin drip. Sedation achieved with propofol and fentanyl. Patient remains hypothermic requiring Gracia hugger, urine output 350 mL's documented since admission. Objective Vital Signs Date Time Temp Pulse Resp B/P (MAP) Pulse Ox O2 Delivery O2 Flow Rate FiO2 08/30/17 08:02 97 50 08/30/17 06:00 83 08/30/17 06:00 97/66 08/30/17 04:00 96.8 14 08/29/17 22:45 Ventilator 08/29/17 18:06 15.00 Intake and Output 08/30/17 08/30/17 08/31/17 08:00 16:00 00:00 Intake Total 2371 ml Output Total 350 ml Balance 2021 ml Result Diagram: 08/30/17 0912 08/30/17 0748 Other Results Microbiology Date/Time Source Procedure Growth Status 08/29/17 19:10 Urine Catheterized Urine Streptococcus pneumoniae Antigen (M - Final PRESUMPTIVE NEGATIVE FOR STREPTOCOCCU... Complete 08/29/17 19:10 Urine Catheterized Urine Legionella Antigen - Final PRESUMPTIVE NEGATIVE FOR LEGIONELLA P... Complete Laboratory Tests Test 08/29/17 19:05 Blood Gas Puncture Site LT FOOT Blood Gas Patient Temperature 98.6 Blood Gas HCO3 21 mmol/L (22-26) Blood Gas Base Excess -5.4 mmol/L (-2-2) Blood Gas Oxygen Saturation 97 % (90-100) Arterial Blood pH 7.23 (7.380-7.420) Arterial Blood Partial Pressure CO2 53 mmHg (38-42) Arterial Blood Partial Pressure O2 268 mmHG (61-120) Arterial Blood Oxygen Content 10.7 Vol % (12.0-20.0) Arterial Blood Carboxyhemoglobin 1.9 % (0-4) Arterial Blood Methemoglobin 0.6 % (0-2) Blood Gas Hemoglobin 7.3 G/DL (12.0-16.0) Oxygen Delivery Device VENTILATOR Blood Gas Ventilator Setting Blood Gas Inspired Oxygen 100 % Imaging Last Impressions CT Angiography 08/29/17 1849 Signed Impressions: Service Date/Time: Tuesday, August 29, 2017 19:36 - CONCLUSION: 1. Multilobar consolidation. 2. No evidence for pulmonary embolism. 3. Extensive coronary calcifications Pk Bae MD Chest X-Ray 08/29/17 1831 Signed Impressions: Service Date/Time: Tuesday, August 29, 2017 18:37 - CONCLUSION: 1. ET tube and NG tube in good position. 2. Mass like area versus consolidation seen in the left perihilar region. 3. Diffuse increased interstitial markings likely related to edema. Dmitri Echeverria MD Objective Remarks GENERAL: Elderly gentleman, intubated and sedated, ill-appearing. HEENT: Normocephalic. Atraumatic. Pupils are equal and reactive. Sclerae are anicteric. Orally intubated. NECK: Trachea is midline. There is no JVD. CHEST: Barrel chest. Scattered coarse breath sounds bilateral, good air entry, no wheezes. CARDIOVASCULAR: Regular heart sounds, no murmurs appreciated. ABDOMEN: Soft, nontender, nondistended. No guarding. Bowel sounds decreased. MUSCULOSKELETAL: Pulses 2+. No peripheral edema. Warm. NEUROLOGICAL: Intubated and sedated. Pupils are equal and reactive. Slight grimacing to pain. A/P Assessment and Plan 1. Acute hypoxic and hypercapnic respiratory failure 2. Possible pneumonia +/-radiation pneumonitis 3. Lung cancer currently undergoing radiation therapy and chemotherapy 4. Atrial fibrillation with rapid ventricular response 5. Acute blood loss anemia. Hemoglobin dropped 2 points since admission, no clear source of anemia so far, patient has no melena, hematochezia, hematemesis or coffee-ground aspirate from NG tube 6. Hypophosphatemia/Hypomagnesemia 7. Hypothermia 1. Continue PRVC at current vent settings. PIP is 21, patient is synchronized with the ventilator, no auto PEEP 2. Vent bundle and bronchodilators but change albuterol to levalbuterol and continue ipratropium 3. Stop heparin drip due to acute drop in hemoglobin 4. Transfuse 2 units PRBC 5. Check coags at 11 6. Continue amiodarone infusion 7. Any sedation with propofol and fentanyl drips 8. Continue broad-spectrum antibiotics started on admission 9. Follow-up cultures 10. NG tube to low intermittent wall suction 11. If further hemoglobin drop or if any signs of GI bleed will ask for a GI evaluation 12. Electrolyte replacement protocol 13. Glycemic control 14. Bear hugger 15. Check TSH 16. GI prophylaxis with famotidine and mechanical DVT prophylaxis with SCDs. Hold heparin in the setting of hemoglobin drop Addendum: Multiple attempts were made by nursing staff to contact family in order to get consent for blood transfusion. Despite multiple attempts we were not able to get in touch with family therefore patient is being transfused emergently. Sunny Herrera MD Aug 30, 2017 10:07
[2017-08-30 12:47] LABS: FREE T3 1.61 PG/ML (2.18-3.98); FREE T4 1.24 NG/DL (0.76-1.46)
--- NOTE | 2017-08-30 14:37 | EKG ---
Date Performed: 08/29/2017 Time Performed: 21:50:38 PTAGE: 61 years EKG: Sinus rhythm LEFT ATRIAL ENLARGEMENT ABNORMAL ECG Compared to PREVIOUS TRACING , previous Afib with RVR DOCTOR: Martin Lopez Interpretating Date/Time 08/30/2017 14:35:15
[2017-08-30] MEDS: VANCOMYCIN 1,000 MG/NS 250 ML IV SCH ×2 (18:20)
[2017-08-30] MEDS ORDERED: methylPREDNISolone SOD SUCC 125 MG/2 ML VIAL IV SCH (23:00)
[2017-08-30 23:18] LABS: HEMATOCRIT 30.1 % (39.0-51.0); HEMOGLOBIN 9.9 GM/DL (13.0-17.0)
[2017-08-31] VITALS (26 sets, daily range): BP systolic 113–170; BP diastolic 68–99; PULSE 62–129; RESP 14–45; TEMP 97.6–98.1; O2SAT 91–100
[2017-08-31] MEDS ORDERED: DEXTROSE 50% IN WATER 50 ML VIAL(D50) IV SCH (00:10)
[2017-08-31] MEDS ORDERED: DEXTROSE 50% IN WATER 50 ML SYRINGE ONE (00:16)
[2017-08-31] MEDS: PROPOFOL 1000 MG/100 ML INJ 100 ML IV PRN ×4 (00:24→23:31)
[2017-08-31] MEDS: SODIUM CHLOR 0.9% 1000 ML INJ 1,000 ML IV SCH ×2 (00:24→09:23)
[2017-08-31] MEDS: AMIODARONE INJ 450 MG in SODIUM CHLOR 0.9% (EXCEL) INJ 250 ML IV SCH ×3 (01:43→18:24)
[2017-08-31] MEDS: PIPERACIL-TAZO 4.5 GM PREMIX 100 ML IV SCH ×4 (01:44→21:27)
[2017-08-31] MEDS: CHLORHEXIDINE GLUCONATE 2 % 1 PACK (2 CLOTHS) TOP SCH (04:00)
[2017-08-31] MEDS: RESP: LEVALBUTEROL HYDROCHLORIDE 1.25 MG/3 ML NEB (SCH) NEB ×4 (04:13→20:24)
[2017-08-31] MEDS: RESP: IPRATROPIUM 0.5 MG/2.5 ML NEB NEB SCH ×4 (04:13→20:24)
--- NOTE | 2017-08-31 04:16 | RADRPT ---
EXAM DATE/TIME: 08/31/2017 02:57 [facility] COMPARISON: CHEST SINGLE AP, August 29, 2017, 18:37. INDICATIONS : Shortness of breath, possible pulmonary disease. MEDICAL HISTORY : Hypertension. SURGICAL HISTORY : None. ENCOUNTER: Subsequent ACUITY: 3 days PAIN SCORE: Non-responsive. LOCATION: Bilateral chest FINDINGS: A single view of the chest demonstrates worsening airspace disease throughout the right lung. Left pe rihilar consolidation is stable. Developing left basilar atelectasis. Heart size is normal. Endotrach eal and nasogastric tubes are stable in position. CONCLUSION: 1. Worsening airspace disease throughout the right lung. 2. Stable left perihilar consolidation with some developing left basilar atelectasis. Jaret Crouch MD on August 31, 2017 at 4:12 Board Certified Radiologist. This report was verified electronically.
[2017-08-31] MEDS: fentaNYL DRIP 250 ML IV PRN (04:35)
[2017-08-31] MEDS: INSULIN NovoLIN REGULAR SUPPLEMENTAL SCALE SQ SCH ×4 (05:33→23:35)
[2017-08-31 07:39] LABS: HEMATOCRIT 31.8 % (39.0-51.0); HEMOGLOBIN 10.5 GM/DL (13.0-17.0); MEAN CELL VOLUME 89.4 FL (80.0-100.0); MEAN CORPUSCULAR HEMOGLOBIN 29.7 PG (27.0-34.0); MEAN CORPUSCULAR HGB CONC 33.2 % (32.0-36.0); MEAN PLATELET VOLUME 7.3 FL (7.0-11.0); PLATELET COUNT 220 TH/MM3 (150-450); RED BLOOD COUNT 3.55 MIL/MM3 (4.50-5.90); RED CELL DISTRIBUTION WIDTH 19.7 % (11.6-17.2); WHITE BLOOD COUNT 12.4 TH/MM3 (4.0-11.0)
[2017-08-31 07:48] LABS: INTERNATIONAL NORMALIZED RATIO 1.2 RATIO; PROTHROMBIN TIME - PATIENT 11.7 SEC (9.8-11.6)
[2017-08-31 08:12] LABS: BICARBONATE 19.8 MEQ/L (21.0-32.0); CALCIUM 7.6 MG/DL (8.5-10.1); CREATININE 1.04 MG/DL (0.60-1.30)
[2017-08-31] MEDS: FAMOTIDINE 20 MG TAB PO SCH (09:22)
[2017-08-31] MEDS: CHLORHEXIDINE 0.12% (ORAL KIT) 15 ML CUP MT SCH ×2 (09:22→20:00)
[2017-08-31] MEDS: DOCUSATE SODIUM 50 MG/SENNA 8.6 MG TAB PO SCH ×2 (09:22→21:00)
--- NOTE | 2017-08-31 10:21 | PD.CONS ---
Consult Service Palliative Care Consult Requested By Dr. Morton . Primary Care Physician Non-Staff Reason for Consultation a. To assist with evaluation and management of symptoms including: Shortness of breath, pain, debility b. To assist medical decision maker(s) with: better understanding of current medical conditions; weighing benefits/burdens of medical treatment options; making medical treatment decisions. HPI History of Present Illness Mr Adams is a 61 years old male with a past medical history significant of lung cancer s/p radiation, COPD, hypertension, coronary artery disease and tobacco use. Patient presented to the ER via EMS on 08/29/17 complaining of shortness of breath that had started the night before, generalized malaise and weakness. Patient was found in Atrial fibrillation with RVR at a rate of 170 and 20mg IVP Cardizem was administered. Patient`s last hospital admission was in mid July of this year and was discharged with Home health care. Patient was diagnosed with lung cancer in November, and he underwent radiation which he completed mid to late June,. Patient reported last hospital admission in mid July that he has completed all 20 rounds of radiation that were recommended oncologist Dr. Will. Patient made himself a DNR during his last visit in July, and has a signed DNR on EMR dated 04/08/17. ER Course: * Vital signs: Pulse 154, respirations 32, BP 171/100, pulse 94% on 15 L nonrebreather * EKG revealed sinus tachycardia rate [address]-and T wave change. Adenosine 6 mg IV administered and potassium 12 mg IV given 2. * Repeat EKG feels that patient was atrial fibrillation with RVR- amiodarone 150 mg IV bolus and amiodarone infusion started. * Patient became acutely hypoxemic and was emergently intubated and sedated. * WBC 8.6, hemoglobin 8.6, hematocrit 26.0, platelet count 299, potassium 4.1, BUN/creatinine 1 3/1.10, random glucose 125, calcium 8.4, AST 1 3, ALT 1 5, troponin 0 0.03, BNP 753, total protein 6.7, albumin 2.7, TSH 2.230, PT 11.1, INR 1.1, APTT 31.3. * Chest x-ray revealed consolidative changes left mid lung with volume loss. * Repeat Chest x-ray revealed ET tube and NG tube in good position. Mass like area versus consolidation seen in the perihilar region. Diffuse increased interstitial markings likely related to edema. * ABG pH 7.23, PCO2 53, PO2 268, HCO3 21,on a mechanical ventilator with FIO2 100% * CT angiography revealed multilobar consolidation. No evidence for pulmonary embolism and extensive coronary calcifications. * Urinalysis negative * Patient admitted on MICU under management by [facility] Dr. Morton Patient was started on heparin infusion on 08/29/17 for atrial fibrillation and was stopped on 08/30/17 after patient is hemoglobin dropped to 6.6. Patient known to palliative . Palliative care consulted to assist with symptom management and establishing goals of care. Patient seen and examined in MICU in his room. Patient is intubated, sedated on mechanical ventilation. Patient currently on propofol infusion at 40 mcg/kg/ min, fentanyl infusion at 100 mcg/hr and amiodarone infusion at 0.5 mg/min. Vent settings PRBC/AC 20/500/IT 0.9s/5/60%. Laboratory workup today revealing WBC 12.4, hemoglobin 10.5, hematocrit 31.8, platelet count 220, sodium 139, BUN/ creatinine 11/1.04, random glucose 100, PT 11.7, INR 1.2, APTT 34.2. Chest x- ray today revealing worsening apical space disease throughout the right lung and stable left perihilar consolidation with some developing left basilar atelectasis. Telephone conversation with patient's cousin Dahiana Mayorga who is also his alternate healthcare surrogate. [place] from Dahiana Mayorga that patient's healthcare surrogate Kay Rizvi is now - approximately a month ago. Updated her on patient's current medical condition, events leading to this hospitalization and treatment rendered thus far. Discussed patient's past decisions from prior hospitalizations of making himself a DNR. Dahiana Mayorga states that they have not discussed in depth regarding patient's wishes but would want to honor his wish of making himself DNR during 2 different hospitalizations. Addressed code status and Dahiana Mayorga, made patient a DNR. Patient has kept in touch with his cousin Dahiana, updating her on his medical conditions. Last time they spoke, he was supposed to go for a PET scan and she is not sure if it was done. Dahiana Mayorga is hopeful that patient would be medically extubated. Discussed at length different possibilities and anticipatory guidance provided in case patient does not medically improve or fails to be medically extubated. Patient`s HCS appreciative of update and requested to be constantly updated by the medical team of patients progress or decline. Case discussed with bedside RN Eduarda. . Function/Cognitive Trajectory Per telephone conversation with patient`s friend Nemo Lyon who also resides at [facility] where patient resided prior to hospitalization, patient was independent with all his ADLs, was able to verbalize his needs. Patient is also on Home O2. Patient has lost significant weight due to poor food intake from calcium deposits which have been making it painful to use his dentures. . Review of Systems ROS Limitations: Intubated Constitutional: COMPLAINS OF: Weight loss, DENIES: Change in appetite Eyes: DENIES: Eye inflammation Ears, nose, mouth, throat: DENIES: Nasal discharge Respiratory: COMPLAINS OF: Cough, Shortness of breath Cardiovascular: DENIES: Lower Extremity Edema Gastrointestinal: DENIES: Bloody stools, Nausea, Vomiting Genitourinary: DENIES: Urinary frequency Hematologic/Lymphatics: COMPLAINS OF: Bruising Psychiatric: DENIES: Confusion, Agitation Other ROS: ROS obtained from patient`s friend and clinical observation. . Past Family Social History Coded Allergies: No Known Allergies (Verified Allergy, Unknown, 08/29/17) Past Medical History Lung cancer stage III s/p radiation Hypertension Coronary artery disease COPD Anxiety Tobacco use . Past Surgical History Atherectomy of the left anterior descending with a bare-metal stent in 2013. Abdominal Surgery . Reported Medications Sodium Chloride 1 Gram Tab 1 Gm PO DAILY Aspirin DR (Aspirin) 81 Mg Tabdr 81 Mg PO DAILY Oxygen (O2) Device Liter RADHA.CANULA CONTINUOUS [Budeson-Formot 160-4.5 Mcg Inh] 60 PUFF Aero 1 Puff INH Q12HR Lisinopril 5 Mg Tab 5 Mg PO DAILY Cardizem CD 24 HR (Diltiazem CD 24 HR) 240 Mg Caper 240 Mg PO DAILY Lopressor (Metoprolol Tartrate) 50 Mg Tab 50 Mg PO Q12HR Lasix (Furosemide) 20 Mg Tab 20 Mg PO DAILY Ranitidine (Ranitidine HCl) 150 Mg Cap 150 Mg PO BID Centrum (Multiple Vitamins W/ Minerals) 1 Chew 1 Tab PO DAILY B12 (Cyanocobalamin) 1,000 Mcg Tab 1,000 Mcg PO DAILY Anoro Ellipta Inh (Umeclidinium/Vilanterol) 62.5-25 Mcg/Act Aero 1 Puff INH DAILY Lovastatin 10 Mg Tab 10 Mg PO DAILY Clopidogrel (Clopidogrel Bisulfate) 75 Mg Tab 75 Mg PO DAILY . Current Medications Medications (Trade) Dose Ordered Sig/Benton Route Start Time Stop Time Status Last Admin Sodium Chloride 1,000 ml @ 100 mls/hr Q10H IV 08/29/17 15:30 08/29/17 15:42 (NS Flush) 2 ml UNSCH PRN IVF 08/29/17 18:00 Fentanyl Citrate 250 ml @ 5 mls/hr TITRATE PRN IV 08/29/17 18:30 08/31/17 04:35 Propofol 100 ml @ 0 mls/hr TITRATE PRN IV 08/29/17 18:30 08/31/17 07:21 Potassium Chloride 100 ml @ 50 mls/hr Q2H PRN IV 08/29/17 18:45 Potassium Chloride 100 ml @ 50 mls/hr Q2H PRN IV 08/29/17 18:45 (K-Lyte Cl Eff) 50 meq UNSCH PRN PO 08/29/17 18:45 Potassium Chloride 100 ml @ 25 mls/hr UNSCH PRN IV 08/29/17 18:45 Potassium Chloride 100 ml @ 50 mls/hr Q2H PRN IV 08/29/17 18:45 Magnesium Sulfate 4 gm/Sodium Chloride 100 ml @ 50 mls/hr UNSCH PRN IV 08/29/17 18:45 (Mag-Ox) 800 mg UNSCH PRN PO 08/29/17 18:45 Magnesium Sulfate 2 gm/Sodium Chloride 100 ml @ 50 mls/hr UNSCH PRN IV 08/29/17 18:45 (K-Phos) 2,000 mg Q4H PRN PO 08/29/17 18:45 Sodium Phosphate 30 mmol/Sodium Chloride 250 ml @ 42 mls/hr UNSCH PRN IV 08/29/17 18:45 (K-Phos) 2,000 mg UNSCH PRN PO/TUBE 08/29/17 18:45 Potassium Phosphate 30 mmol/ Sodium Chloride 260 ml @ 42 mls/hr UNSCH PRN IV 08/29/17 18:45 (Peridex 0.12% Liq) 15 ml BID@08,20 MT 08/29/17 20:00 08/30/17 20:07 (D50w (Vial) Inj) 25 ml UNSCH PRN IV PUSH 08/29/17 18:45 (NovoLIN R SUPPLEMENTAL SCALE) 1 Q6HR SQ 08/30/17 00:00 (Duoneb Neb) 1 ampule Q2HR NEB PRN INH 08/29/17 18:45 Pharmacy Profile Note 0 ml @ 0 mls/hr UNSCH OTHER 08/29/17 18:45 Piperacillin Sod/ Tazobactam Sod 100 ml @ 200 mls/hr Q6H IV 08/29/17 20:00 08/31/17 01:44 Azithromycin 500 mg/Sodium Chloride 250 ml @ 250 mls/hr Q24H IV 08/29/17 20:00 08/30/17 00:52 Sodium Chloride 1,000 ml @ 84 mls/hr [id number] IV 08/29/17 18:41 08/31/17 00:24 (Pepcid) 20 mg Q12HR PO 08/29/17 21:00 08/30/17 20:05 (Zofran Inj) 4 mg Q6H PRN IV PUSH 08/29/17 18:45 ([facility] Nursing Information) 1 Q361D XX 08/29/17 18:45 08/29/17 18:45 (Chlorhexidine 2% Cloth) 3 pack Taper DAILY@04 TOP 08/30/17 04:00 08/26/18 03:59 08/31/17 04:00 (Chlorhexidine 2% Cloth) 3 pack UNSCH PRN TOP 08/29/17 18:45 (Nata-Colace) 1 tab BID PO 08/29/17 21:00 08/30/17 20:05 (Milk Of Magnesia Liq) 30 ml Q12H PRN PO 08/29/17 18:45 (NS Flush) 2 ml UNSCH PRN IVF 08/29/17 19:30 Vancomycin HCl 1000 mg/Sodium Chloride 250 ml @ 250 mls/hr Q18H IV 08/30/17 18:00 08/30/17 18:20 ([facility] Ordered Lab Info) SPECIFIC LAB TO BE DRAWN:VANCOMYCIN TROUGH DATE TO... ONCE ONCE .XX 09/01/17 05:45 09/01/17 05:46 (Atrovent Neb) 0.5 mg Q6HR NEB NEB 08/30/17 10:00 08/31/17 08:09 (Xopenex Neb) 1.25 mg Q6HR NEB NEB 08/30/17 10:00 08/31/17 08:10 Amiodarone HCl 450 mg/Sodium Chloride 259 ml @ 33 mls/hr [id number] IV 08/30/17 11:00 08/30/17 20:22 Family History Father -he had a heart attack at age 52 Mother from CHF complications . Substance Use Tobacco:Current smoker Alcohol:Occasional alcohol consumption Prescription med abuse:None reported Illicits:History of substance abuse-marijuana years ago . Psychosocial History Patient was born and raised in [place]. He left [place] the age of 20. Patient moved to [place] in 1975. Patient has a 2 years college degree in [employer]. 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 Patient was and twice. He never had children. . Spiritual/Cultural Factors No jain affiliation . Health Care Surrogate: Copy in medical record Date completed: [facility] -April 08, 2017 . Health Care Surrogate(s): HCS- (Long time friend-15 yrs) Kay Rizvi [phone]- (July 2017) Alternate [facility]- Cousin- Dahiana Mayorga [phone] (will serve as HCS) . Family/friends goals: Hopeful that patient can be medically extubated. . Ethical and Legal Issues None identified at this time. . Physical Exam Vital Signs Date Time Temp Pulse Resp B/P (MAP) Pulse Ox O2 Delivery O2 Flow Rate FiO2 08/31/17 08:04 99 60 08/31/17 06:00 85 08/31/17 04:15 95 60 08/31/17 04:00 99.0 91 14 117/75 (89) 92 08/31/17 04:00 91 08/31/17 04:00 50 08/31/17 02:00 89 08/31/17 00:00 94 08/31/17 00:00 50 08/31/17 00:00 94 15 113/68 (83) 97 08/30/17 22:46 98 45 08/30/17 22:00 95 08/30/17 21:30 100.2 93 14 112/74 98 08/30/17 20:22 96 116/72 08/30/17 20:04 97 45 08/30/17 20:00 93 08/30/17 20:00 50 08/30/17 20:00 100.2 93 15 112/77 (89) 97 08/30/17 18:42 100.3 94 14 117/71 99 08/30/17 18:27 100.3 97 17 123/79 97 08/30/17 18:00 96 08/30/17 16:21 99.7 91 16 111/74 99 08/30/17 16:20 99 45 08/30/17 16:06 99.7 91 15 113/72 97 08/30/17 16:00 50 08/30/17 16:00 90 08/30/17 16:00 99.7 90 17 113/72 (86) 100 08/30/17 14:00 91 08/30/17 12:09 97 45 08/30/17 12:00 99.5 90 14 105/70 (82) 98 08/30/17 12:00 50 08/30/17 12:00 90 08/30/17 10:30 94 112/74 08/30/17 10:09 90 108/72 08/30/17 10:00 92 08/31/17 09/01/17 19:00 07:00 Intake Total 100 ml Balance 100 ml Intake IV Total 100 ml Exam CONSTITUTIONAL/GENERAL: This is a chronically ill patient, intubated, sedated. TUBES/LINES/DRAINS: ETT, OGT, PIV, Dockery catheter, bilateral upper extremity soft restraints SKIN: No jaundice, rashes, or lesions. Ecchymoses on upper extremities. No wounds seen anteriorly. Skin temperature appropriate. Not diaphoretic. HEAD: Atraumatic. Normocephalic. EYES: Pupils 2 mm, questionable reaction.No scleral icterus. No injection or drainage. Fundi not examined. ENT: Unable to assess Hearing. Nose without bleeding or purulent drainage. Moist oral mucosa NECK: Trachea midline. Supple, nontender. CARDIOVASCULAR: S1-S2 normal, no murmurs, no JVD. On amiodarone infusion. peripheral pulses symmetric. RESPIRATORY/CHEST: Symmetric, unlabored respirations. Clear to auscultation. Diminished in the bases. No wheezes, rales, or rhonchi. GASTROINTESTINAL: Abdomen soft, non-tender, nondistended. Bowel sounds present. GENITOURINARY: Without palpable bladder distension. Dockery catheter in place. MUSCULOSKELETAL: Extremities without clubbing, cyanosis. Edema to bilateral upper extremities. No mottling or clubbing. NEUROLOGICAL: Intubated, sedated on mechanical ventilation. PSYCHIATRIC: Unable to assess at this time. . Diagnostic Tests Laboratory Laboratory Tests Test 08/29/17 15:40 08/29/17 19:05 08/29/17 19:10 08/29/17 21:58 White Blood Count 8.6 TH/MM3 (4.0-11.0) Red Blood Count 2.86 MIL/MM3 (4.50-5.90) Hemoglobin 8.6 GM/DL (13.0-17.0) Hematocrit 26.0 % (39.0-51.0) Mean Corpuscular Volume 90.8 FL (80.0-100.0) Mean Corpuscular Hemoglobin 30.2 PG (27.0-34.0) Mean Corpuscular Hemoglobin Concent 33.3 % (32.0-36.0) Red Cell Distribution Width 20.1 % (11.6-17.2) Platelet Count 299 TH/MM3 (150-450) Mean Platelet Volume 7.5 FL (7.0-11.0) Neutrophils (%) (Auto) 80.7 % (16.0-70.0) Lymphocytes (%) (Auto) 5.1 % (9.0-44.0) Monocytes (%) (Auto) 11.8 % (0.0-8.0) Eosinophils (%) (Auto) 2.1 % (0.0-4.0) Basophils (%) (Auto) 0.3 % (0.0-2.0) Neutrophils # (Auto) 7.0 TH/MM3 (1.8-7.7) Lymphocytes # (Auto) 0.4 TH/MM3 (1.0-4.8) Monocytes # (Auto) 1.0 TH/MM3 (0-0.9) Eosinophils # (Auto) 0.2 TH/MM3 (0-0.4) Basophils # (Auto) 0.0 TH/MM3 (0-0.2) CBC Comment DIFF FINAL Differential Comment Prothrombin Time 11.1 SEC (9.8-11.6) Prothromb Time International Ratio 1.1 RATIO Activated Partial Thromboplast Time 31.3 SEC (24.3-30.1) 26.7 SEC (24.3-30.1) Blood Urea Nitrogen 13 MG/DL (7-18) Creatinine 1.10 MG/DL (0.60-1.30) Random Glucose 125 MG/DL (74-106) Total Protein 6.7 GM/DL (6.4-8.2) Albumin 2.7 GM/DL (3.4-5.0) Calcium Level 8.4 MG/DL (8.5-10.1) Alkaline Phosphatase 97 U/L (45-117) Aspartate Amino Transf (AST/SGOT) 13 U/L (15-37) Alanine Aminotransferase (ALT/SGPT) 15 U/L (12-78) Total Bilirubin 0.4 MG/DL (0.2-1.0) Sodium Level 137 MEQ/L (136-145) Potassium Level 4.1 MEQ/L (3.5-5.1) Chloride Level 101 MEQ/L (98-107) Carbon Dioxide Level 24.8 MEQ/L (21.0-32.0) Anion Gap 11 MEQ/L (5-15) Estimat Glomerular Filtration Rate 68 ML/MIN (>89) Phosphorus Level 2.6 MG/DL (2.5-4.9) Magnesium Level 1.7 MG/DL (1.5-2.5) Total Creatine Kinase 36 U/L (39-308) Troponin I 0.03 NG/ML (0.02-0.05) B-Type Natriuretic Peptide 753 PG/ML (0-100) Thyroid Stimulating Hormone 3rd Gen 2.230 uIU/ML (0.358-3.740) Blood Gas Puncture Site LT FOOT Blood Gas Patient Temperature 98.6 Blood Gas HCO3 21 mmol/L (22-26) Blood Gas Base Excess -5.4 mmol/L (-2-2) Blood Gas Oxygen Saturation 97 % (90-100) Arterial Blood pH 7.23 (7.380-7.420) Arterial Blood Partial Pressure CO2 53 mmHg (38-42) Arterial Blood Partial Pressure O2 268 mmHG (61-120) Arterial Blood Oxygen Content 10.7 Vol % (12.0-20.0) Arterial Blood Carboxyhemoglobin 1.9 % (0-4) Arterial Blood Methemoglobin 0.6 % (0-2) Blood Gas Hemoglobin 7.3 G/DL (12.0-16.0) Oxygen Delivery Device VENTILATOR Blood Gas Ventilator Setting Blood Gas Inspired Oxygen 100 % Urine Color LIGHT-YELLOW (YELLW/STRAW) Urine Turbidity CLEAR (CLEAR) Urine pH 7.5 (5.0-8.5) Urine Specific [place] 1.013 (1.002-1.035) Urine Protein 30 mg/dL (NEG-TRACE) Urine Glucose (UA) NEG mg/dL (NEG) Urine Ketones NEG mg/dL (NEG) Urine Occult Blood NEG (NEG) Urine Nitrite NEG (NEG) Urine Bilirubin NEG (NEG) Urine Urobilinogen LESS THAN 2.0 MG/DL (LESS Urine Leukocyte Esterase NEG (NEG) Urine RBC 2 /hpf (0-3) Urine WBC 1 /hpf (0-5) Urine Hyaline Casts 2 /lpf (RARE) Microscopic Urinalysis Comment CATH-CULT NOT IND Test 08/29/17 23:20 08/30/17 00:06 08/30/17 07:48 08/30/17 09:12 Nasal Screen MRSA (PCR) MRSA NOT DETECTED (NOT Total Creatine Kinase 41 U/L (39-308) Troponin I 0.16 NG/ML (0.02-0.05) White Blood Count 7.7 TH/MM3 (4.0-11.0) Red Blood Count 2.20 MIL/MM3 (4.50-5.90) Hemoglobin 6.6 GM/DL (13.0-17.0) 6.6 GM/DL (13.0-17.0) Hematocrit 20.1 % (39.0-51.0) 20.1 % (39.0-51.0) Mean Corpuscular Volume 91.2 FL (80.0-100.0) Mean Corpuscular Hemoglobin 30.0 PG (27.0-34.0) Mean Corpuscular Hemoglobin Concent 32.9 % (32.0-36.0) Red Cell Distribution Width 20.5 % (11.6-17.2) Platelet Count 234 TH/MM3 (150-450) Mean Platelet Volume 7.3 FL (7.0-11.0) Activated Partial Thromboplast Time 54.4 SEC (24.3-30.1) Blood Urea Nitrogen 12 MG/DL (7-18) Creatinine 0.87 MG/DL (0.60-1.30) Random Glucose 72 MG/DL (74-106) Calcium Level 7.5 MG/DL (8.5-10.1) Sodium Level 138 MEQ/L (136-145) Potassium Level 4.0 MEQ/L (3.5-5.1) Chloride Level 109 MEQ/L (98-107) Carbon Dioxide Level 21.0 MEQ/L (21.0-32.0) Anion Gap 8 MEQ/L (5-15) Estimat Glomerular Filtration Rate 89 ML/MIN (>89) Test 08/30/17 11:53 08/30/17 11:57 08/30/17 22:51 08/31/17 05:19 Activated Partial Thromboplast Time 29.9 SEC (24.3-30.1) Free Thyroxine 1.24 NG/DL (0.76-1.46) Free Triiodothyronine (T3) pg/dL 1.61 PG/ML (2.18-3.98) Thyroid Stimulating Hormone 3rd Gen 2.050 uIU/ML (0.358-3.740) Hemoglobin 9.9 GM/DL (13.0-17.0) Hematocrit 30.1 % (39.0-51.0) Blood Gas Puncture Site RT RADIAL Blood Gas Patient Temperature 98.6 Blood Gas HCO3 18 mmol/L (22-26) Blood Gas Base Excess -8.8 mmol/L (-2-2) Blood Gas Oxygen Saturation 92 % (90-100) Arterial Blood pH 7.20 (7.380-7.420) Arterial Blood Partial Pressure CO2 48 mmHg (38-42) Arterial Blood Partial Pressure O2 86 mmHg (61-120) Arterial Blood Oxygen Content 13.8 Vol % (12.0-20.0) Arterial Blood Carboxyhemoglobin 1.4 % (0-4) Arterial Blood Methemoglobin 1.5 % (0-2) Blood Gas Hemoglobin 10.7 G/DL (12.0-16.0) Oxygen Delivery Device VENTILATOR Blood Gas Ventilator Setting PRVC/AC Blood Gas Inspired Oxygen 60 % Test 08/31/17 06:25 White Blood Count 12.4 TH/MM3 (4.0-11.0) Red Blood Count 3.55 MIL/MM3 (4.50-5.90) Hemoglobin 10.5 GM/DL (13.0-17.0) Hematocrit 31.8 % (39.0-51.0) Mean Corpuscular Volume 89.4 FL (80.0-100.0) Mean Corpuscular Hemoglobin 29.7 PG (27.0-34.0) Mean Corpuscular Hemoglobin Concent 33.2 % (32.0-36.0) Red Cell Distribution Width 19.7 % (11.6-17.2) Platelet Count 220 TH/MM3 (150-450) Mean Platelet Volume 7.3 FL (7.0-11.0) Prothrombin Time 11.7 SEC (9.8-11.6) Prothromb Time International Ratio 1.2 RATIO Activated Partial Thromboplast Time 34.2 SEC (24.3-30.1) Blood Urea Nitrogen 11 MG/DL (7-18) Creatinine 1.04 MG/DL (0.60-1.30) Random Glucose 100 MG/DL (74-106) Calcium Level 7.6 MG/DL (8.5-10.1) Sodium Level 139 MEQ/L (136-145) Potassium Level 4.2 MEQ/L (3.5-5.1) Chloride Level 111 MEQ/L (98-107) Carbon Dioxide Level 19.8 MEQ/L (21.0-32.0) Anion Gap 8 MEQ/L (5-15) Estimat Glomerular Filtration Rate 72 ML/MIN (>89) Result Diagram: 08/31/1762408/31/1725 Microbiology Microbiology Date/Time Source Procedure Growth Status 08/29/17 20:40 Blood Peripheral Aerobic Blood Culture - Preliminary Gram Positive Cocci Resulted 08/29/17 20:40 Blood Peripheral Anaerobic Blood Culture - Preliminary NO GROWTH IN 1 DAY Resulted 08/29/17 20:25 Blood Peripheral Aerobic Blood Culture - Preliminary NO GROWTH IN 1 DAY Resulted 08/29/17 20:25 Blood Peripheral Anaerobic Blood Culture - Preliminary NO GROWTH IN 1 DAY Resulted 08/30/17 04:45 Sputum Endotracheal Gram Stain - Final Resulted 08/30/17 04:45 Sputum Endotracheal Sputum Culture Pending Resulted 08/29/17 19:10 Urine Catheterized Urine Streptococcus pneumoniae Antigen (M - Final PRESUMPTIVE NEGATIVE FOR STREPTOCOCCU... Complete 08/29/17 19:10 Urine Catheterized Urine Legionella Antigen - Final PRESUMPTIVE NEGATIVE FOR LEGIONELLA P... Complete Imaging Last Impressions Chest X-Ray 08/31/17 0600 Signed Impressions: Service Date/Time: Thursday, August 31, 2017 02:57 - CONCLUSION: 1. Worsening airspace disease throughout the right lung. 2. Stable left perihilar consolidation with some developing left basilar atelectasis. Jaret Crouch MD CT Angiography 08/29/17 1849 Signed Impressions: Service Date/Time: Tuesday, August 29, 2017 19:36 - CONCLUSION: 1. Multilobar consolidation. 2. No evidence for pulmonary embolism. 3. Extensive coronary calcifications Pk Bae MD Procedures 08/31/17-intubation . Patient/Family Conference Family Conference Location: Telephone (Spoke to patient's healthcare surrogate , dale Dahiana Mukesh) Issues Discussed: * Palliative care role, purpose, approach * Additional medical, psychosocial, and spiritual history * Patients general health, functional status, and cognitive changes in the months leading up to the current hospitalization * Patient/family understanding of the current medical problems * Patient/family understanding of prognosis * Patients goals of care as best understood from advance directives and/or conversations and/or values * Current medical treatment options and benefits/burdens of those options * Likely scenarios comparing ongoing aggressive care with a transition to comfort measures only * Questions answered to the best of my ability * Palliative care contact information provided Assessment and Plan Disease Oriented Problem List: (1) Acute respiratory failure with hypoxia and hypercarbia (2) Lung cancer (3) Atrial fibrillation with RVR (4) Lung consolidation (5) COPD (chronic obstructive pulmonary disease) Symptom Scale: (1) Shortness of breath Comment: Hx of lung cancer. CT angiography revealed multilobar consolidation and no evidence for pulmonary embolism, extensive coronary calcifications. . (2) Pain Comment: Risk for pain-from procedure (intubation), bedbound status. . (3) Debility 0-10 Scale: Unable to quantify Comment: Progressive . Pertinent Non-Medical Issues Psychosocial:Patient was born and raised in [place]. He left [place] at the age of 20. Patient moved to [place] in 1975. Patient has a 2 years college degree in [employer]. 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 Patient was and twice. He never had children. Spiritual:N jain affiliation Legal:Patient has a HCS form signed and completed a Community DNR Ethical issues impacting care:None identified at this time . Important Contacts Alternate HCS- Cousin- Dahiana Mayorga [phone] Friend-Nemo [phone] [facility]- (Long time friend-15 yrs) Kay Rizvi [phone]- . Prognosis Mr Adams is a 61 years old male with a past medical history significant of lung cancer s/p radiation, COPD, hypertension, coronary artery disease and tobacco use. Patient presented to the ER via EMS on 08/29/17 complaining of shortness of breath that had started the night before, generalized malaise and weakness. Clinical course complicated with atrial fibrillation with RVR, and acute hypoxic and hypercapnic respiratory failure. Given ongoing comorbidities , patient remains at high risk for further complications, deterioration and decline. . Code Status: No Code Plan PLAN: Legal decision maker: Patient is currently intubated, sedated on mechanical ventilation and is not able to participate in decision-making. Patient`s cousin Daihana Mayorga whom he has designated as his alternate healthcare surrogate will make medical decisions for patient. Goals: Aggressive short of no code CODE STATUS: No code DNR Telephone conversation with patient's cousin Dahiana Mayorga who is also his alternate healthcare surrogate. [place] from Dahiana Mayorga that patient's healthcare surrogate Kay Rizvi is now - approximately a month ago. Updated her on patient's current medical condition, events leading to this hospitalization and treatment rendered thus far. Discussed patient's past decisions from prior hospitalizations of making himself a DNR. Dahiana Mayorga states that they have not discussed in depth regarding patient's wishes but would want to honor his wish of making himself DNR during 2 different hospitalizations. Addressed code status and Dahiana Mayorga, made patient a DNR. Patient has kept in touch with his cousin Dahiana, updating her on his medical conditions. Last time they spoke, he was supposed to go for a PET scan and she is not sure if it was done. Dahiana Mayorga is hopeful that patient would be medically extubated. Discussed at length different possibilities and anticipatory guidance provided in case patient does not medically improve or fails to be medically extubated. Patient`s HCS appreciative of update and requested to be constantly updated by the medical team of patients progress or decline. SYMPTOMS: * Shortness of breath: Patient has history of lung cancer, COPD and tobacco use. Patient presented with shortness of breath. Intubated and placed on mechanical ventilation on 08/29. chest x-ray 08/31/17 revealing worsening airspace disease throughout the right lung and stable left perihilar consolidation with some developing left basilar atelectasis. Patient is on antibiotics, Solu-Medrol and duo nebs prn. Currently on FiO2 60%. No recommendations at this time. * Pain: Patient is at risk for pain, required intubation in the ER. Currently bedbound. Patient is on fentanyl infusion at 100 mcg/hr. no signs of pain, discomfort noted. No recommendations at this time. * Debility: Progressive: Hx of lung cancer s/p radiation. Multiple hospitalizations. Patient may benefit from PT consultation if goals remain aggressive. . Palliative care will continue to follow the patient during hospital course as condition evolves, to assist patient/decision-maker with understanding of their medical conditions, weighing benefits/burdens of treatment options, for clarification of goals of treatment. Additionally will assist with any symptoms of palliative concern Thank you for the opportunity to participate in the care of Mr. Adams. Attestation To help prompt me to consider important information that might be impacting today's encounter and assessment, information from prior notes written by myself or my colleagues may have been "brought forward" into today's note. My signature on this note, however, is an attestation that I personally performed the exam, history, and/or decision-making noted today, and, unless otherwise indicated, the interactions with patient, family, and staff as well as the review of records all occurred today. I also attest that the listed assessment and stated plan reflect my best clinical judgment today based on the combination of historical information, prior notes, and today's exam/ interactions. When time spent is documented, it refers only to time spent today by the signer, or if indicated, combined time spent today by collaborating physician/nurse practitioner. Randa Tenorio Aug 31, 2017 10:16
--- NOTE | 2017-08-31 10:43 | HHI.CCPN ---
Subjective Remarks/Hospital Course 08/29: This is a 61-year-old male with a history of lung cancer undergoing current chemotherapy and radiation who was recently admitted on 07/19 for aspiration pneumonia. During that admission he did have episodes of paroxysmal atrial fibrillation and had an echo from 04/2017 showing an EF of 50-55%. He represents today to the emergency department with acute shortness of breath since last night. Per the ER documentation, he denies any coughing, fever, chills, or other recent symptoms or changes other than the new dyspnea. In the emergency department he was found to be in A. fib with RVR. This initially converted to sinus rhythm 1 after diltiazem 20 mg IV bolus, but then very quickly went back into atrial for ablation with rapid ventricular response. 2 doses of adenosine were not able to convert it. The patient was loaded with amiodarone and infusion was started. After this, the patient become acutely hypoxemic requiring emergent intubation. Please refer to the emergency room physician documentation for additional details regarding the decompensation. When I came to evaluate patient, the patient was recently intubated, sedated. No additional information is available from the patient due to his clinical condition. Review of systems is unobtainable. Critical care medicine is consulted to evaluate manage his acute hypoxic respiratory failure along with his acute supraventricular tachycardia. 08/30: Patient remains intubated and sedated. FiO2 down to 0.5. Patient continues to be on amiodarone infusion and heparin drip. Sedation achieved with propofol and fentanyl. Patient remains hypothermic requiring Gracia hugger, urine output 350 mL's documented since admission. 08/31: No events over the night. Patient remains intubated and sedated. Hemoglobin more stable posttransfusion. Hypothermia resolved, T-max of 100.3. Urine output remains low, 635 mL's over the last 24 hours. Oxygenation is improved. No family present at bedside. Patient remains in sinus rhythm, on amiodarone infusion. No report of melena, hematochezia or coffee-ground aspirate from NG tube. Morning chest x-ray reviewed, worsening infiltrates over the right thorax, unchanged consolidation over the left. Objective Vital Signs Date Time Temp Pulse Resp B/P (MAP) Pulse Ox O2 Delivery O2 Flow Rate FiO2 08/31/17 09:00 98.1 67 20 140/82 (101) 100 08/31/17 08:04 60 08/29/17 22:45 Ventilator 08/29/17 18:06 15.00 Intake and Output 08/31/17 08/31/17 09/01/17 08:00 16:00 00:00 Intake Total 1550 ml Output Total 285 ml Balance 1265 ml Result Diagram: 08/31/17 0608/31/17 0625 Other Results Blood cultures 08/29 gram-positive cocci 1/2 sets Sputum culture is pending Strep pneumo and Legionella antigen negative Microbiology Date/Time Source Procedure Growth Status 08/29/17 19:10 Urine Catheterized Urine Streptococcus pneumoniae Antigen (M - Final PRESUMPTIVE NEGATIVE FOR STREPTOCOCCU... Complete 08/29/17 19:10 Urine Catheterized Urine Legionella Antigen - Final PRESUMPTIVE NEGATIVE FOR LEGIONELLA P... Complete Laboratory Tests Test 08/31/17 05:19 08/31/17 09:26 Blood Gas Puncture Site RT RADIAL LT RADIAL Blood Gas Patient Temperature 98.6 98.6 Blood Gas HCO3 18 mmol/L (22-26) 16 mmol/L (22-26) Blood Gas Base Excess -8.8 mmol/L (-2-2) -8.6 mmol/L (-2-2) Blood Gas Oxygen Saturation 92 % (90-100) 96 % (90-100) Arterial Blood pH 7.20 (7.380-7.420) 7.33 (7.380-7.420) Arterial Blood Partial Pressure CO2 48 mmHg (38-42) 31 mmHg (38-42) Arterial Blood Partial Pressure O2 86 mmHg (61-120) 134 mmHg (61-120) Arterial Blood Oxygen Content 13.8 Vol % (12.0-20.0) 13.7 Vol % (12.0-20.0) Arterial Blood Carboxyhemoglobin 1.4 % (0-4) 1.4 % (0-4) Arterial Blood Methemoglobin 1.5 % (0-2) 1.4 % (0-2) Blood Gas Hemoglobin 10.7 G/DL (12.0-16.0) 10.0 G/DL (12.0-16.0) Oxygen Delivery Device VENTILATOR VENTILATOR Blood Gas Ventilator Setting PRVC/AC Blood Gas Inspired Oxygen 60 % 60 % Imaging Last 24 hours Impressions Chest X-Ray 08/31/17 0600 Signed Impressions: Service Date/Time: Thursday, August 31, 2017 02:57 - CONCLUSION: 1. Worsening airspace disease throughout the right lung. 2. Stable left perihilar consolidation with some developing left basilar atelectasis. Jaret Crouch MD Last Impressions CT Angiography 08/29/171848 Signed Impressions: Service Date/Time: Tuesday, August 29, 2017 19:36 - CONCLUSION: 1. Multilobar consolidation. 2. No evidence for pulmonary embolism. 3. Extensive coronary calcifications Pk Bae MD Chest X-Ray 08/29/17 183 Signed Impressions: Service Date/Time: Tuesday, August 29, 2017 18:37 - CONCLUSION: 1. ET tube and NG tube in good position. 2. Mass like area versus consolidation seen in the left perihilar region. 3. Diffuse increased interstitial markings likely related to edema. Dmitri Echeverria MD Objective Remarks General - elderly gentleman, intubated and sedated, ill-appearing HEENT - pupils equal, reactive, sclerae anicteric, neck supple, no nuchal rigidity, neck veins not distended, no carotid bruit, orally intubated CV - regular S1, S2, no murmurs Chest - diffuse coarse breath sounds b/l, good air entry, no wheezes Abdomen - soft, appears non-tender, non-distended, BS present, no hepatomegaly, no splenomegaly Skin - no rashes, no cyanosis Extremities - warm and well perfused, no edema, + peripheral pulses, no clubbing Neuro - intubated and sedated, pupils are equal and reactive, grimaces to pain but does not follow commands A/P Assessment and Plan 1. Acute hypoxic and hypercapnic respiratory failure -slowly improving 2. Possible pneumonia +/-radiation pneumonitis 3. Acute COPD exacerbation 4. Lung cancer currently undergoing radiation therapy and chemotherapy 5. Atrial fibrillation with rapid ventricular response -rate better controlled , remains in sinus rhythm 6. Gram-positive bacteremia -awaiting speciation to see if true pathogen versus contaminant 7. Acute blood loss anemia -hemoglobin improved post 2 units PRBC transfusion. Still no clear source of bleeding identified 8. Hypophosphatemia/Hypomagnesemia -improved 9. Hypothermia -resolved, thyroid functions are normal 10. OBED -with low urine output 1. Continue PRVC, vent settings readjusted, respiratory rate increased to 20, TI decreased to 0.9. Repeat ABG significantly improved 2. Vent bundle and bronchodilators but change albuterol to levalbuterol and continue ipratropium 3. Start steroids 4. Continue Vanco and Zosyn and stop azithromycin 5. Continue sedation with propofol and fentanyl but decrease it to a RASS of -1 6. Continue amiodarone infusion 7. Follow-up cultures 8. NG tube to low intermittent wall suction 9. If further hemoglobin drop or if any signs of GI bleed will ask for a GI evaluation 10. Glycemic control 11. Change GI prophylaxis to pantoprazole and mechanical DVT prophylaxis with SCDs. Hold heparin in the setting of hemoglobin drop 12. Change NS to LR due to worsening hyperchloremic metabolic acidosis No family present at bedside. We will consult palliative care. Patient remains very ill at high risk for further decompensation and . Sunny Herrera MD Aug 31, 2017 10:43
[2017-08-31] MEDS ORDERED: LACTATED RINGER'S 1000 ML INJ 1,000 ML IV SCH (11:00)
[2017-08-31] MEDS: VANCOMYCIN 1,000 MG/NS 250 ML IV SCH ×2 (12:06)
[2017-08-31] MEDS: PANTOPRAZOLE SODIUM 40 MG VIAL IV PUSH SCH (12:06)
[2017-08-31] MEDS: methylPREDNISolone SOD SUCC 40 MG/1 ML VIAL IV PUSH SCH ×2 (14:54→21:27)
[2017-08-31] MEDS ORDERED: FUROSEMIDE 40 MG/4 ML VIAL IV PUSH ONE (16:45)
[2017-08-31] MEDS: ONDANSETRON HCL 4 MG/2 ML VIAL IV PUSH PRN (19:59)
--- NOTE | 2017-08-31 20:59 | RADRPT ---
EXAM DATE/TIME: 08/31/2017 20:34 [facility] COMPARISON: No previous studies available for comparison. INDICATIONS : NG tube placement. MEDICAL HISTORY : Hypertension. SURGICAL HISTORY : None. ENCOUNTER: Subsequent ACUITY: 3 days PAIN SCORE: Non-responsive. LOCATION: Abdomen. FINDINGS: Examination of the abdomen demonstrates NG tip in distal stomach. Basilar air space disease present w ith small effusions. Bowel gas pattern unremarkable. CONCLUSION: 1. Nasogastric tube tip in distal stomach. David Jay MD on August 31, 2017 at 20:57 Board Certified Radiologist. This report was verified electronically.
[2017-08-31] MEDS ORDERED: ETOMIDATE 40 MG/20 ML VIAL ONE (22:00)
[2017-08-31] MEDS ORDERED: SUCCINYLCHOLINE CHLORIDE 200 MG/10 ML VIAL ONE (22:01)
[2017-08-31] MEDS ORDERED: PROPOFOL 500 MG/50 ML INJ 50 ML ONE (22:22)
[2017-09-01] VITALS (19 sets, daily range): BP systolic 104–140; BP diastolic 72–97; PULSE 74–100; RESP 10–24; TEMP 96.3–98.6; O2SAT 94–100
[2017-09-01] MEDS: SODIUM BICARBONATE 8.4% INJ 150 MEQ in DEXTROSE 5% IN WATE 1000ML INJ 1,000 ML IV SCH ×4 (02:10→14:12)
[2017-09-01] MEDS: PIPERACIL-TAZO 4.5 GM PREMIX 100 ML IV SCH ×4 (02:11→22:11)
--- NOTE | 2017-09-01 02:58 | PD.PROCEDR ---
Procedure Note Procedure Endotracheal Intubation A time-out was completed verifying correct patient, procedure, site, positioning , and special equipment if applicable. The patient was placed in a flat position. Sedation was obtained using Etomidate 20mg. The patient was easily ventilated using an ambu bag. The [employer]/ MAC 4 BLADE was used and inserted into the oropharynx at which time there was a Grade 1 view of the vocal cords. A 8-portuguese endotracheal tube was inserted and visualized going through the vocal cords. The stylette was removed. Colorimetric change was visualized on the CO2 meter. Breath sounds were heard in both lung lu equally. The endotracheal tube was placed at 23 cm, measured at the teeth. A chest x-ray was ordered to assess for pneumothorax and verify endotrachealtube placement. Estimated Blood Loss: 0 The patient tolerated the procedure well and there were no complications. Toño Roblero MD September 01, 2017 2:58 am
[2017-09-01] MEDS: CHLORHEXIDINE GLUCONATE 2 % 1 PACK (2 CLOTHS) TOP SCH (04:00)
[2017-09-01] MEDS: AMIODARONE INJ 450 MG in SODIUM CHLOR 0.9% (EXCEL) INJ 250 ML IV SCH (05:04)
[2017-09-01] MEDS ORDERED: PHARMACY ORDERED LAB ONE (05:45)
[2017-09-01] MEDS: INSULIN NovoLIN REGULAR SUPPLEMENTAL SCALE SQ SCH ×3 (06:00→17:28)
[2017-09-01] MEDS: RESP: IPRATROPIUM 0.5 MG/2.5 ML NEB NEB SCH ×4 (06:03→21:04)
[2017-09-01] MEDS: RESP: LEVALBUTEROL HYDROCHLORIDE 1.25 MG/3 ML NEB (SCH) NEB ×4 (06:04→21:04)
[2017-09-01 06:16] LABS: HEMATOCRIT 34.6 % (39.0-51.0); HEMOGLOBIN 11.1 GM/DL (13.0-17.0); MEAN CELL VOLUME 89.6 FL (80.0-100.0); MEAN CORPUSCULAR HEMOGLOBIN 28.8 PG (27.0-34.0); MEAN CORPUSCULAR HGB CONC 32.1 % (32.0-36.0); MEAN PLATELET VOLUME 7.6 FL (7.0-11.0); PLATELET COUNT 235 TH/MM3 (150-450); RED BLOOD COUNT 3.86 MIL/MM3 (4.50-5.90); RED CELL DISTRIBUTION WIDTH 19.9 % (11.6-17.2); WHITE BLOOD COUNT 11.5 TH/MM3 (4.0-11.0)
[2017-09-01] MEDS: VANCOMYCIN 1,000 MG/NS 250 ML IV SCH ×2 (06:18)
[2017-09-01] MEDS: methylPREDNISolone SOD SUCC 40 MG/1 ML VIAL IV PUSH SCH ×3 (06:18→22:11)
[2017-09-01] MEDS: PROPOFOL 1000 MG/100 ML INJ 100 ML IV PRN ×4 (06:48→23:43)
[2017-09-01 07:05] LABS: BICARBONATE 17.3 MEQ/L (21.0-32.0); CALCIUM 7.9 MG/DL (8.5-10.1); CREATININE 1.33 MG/DL (0.60-1.30)
[2017-09-01] MEDS: CHLORHEXIDINE 0.12% (ORAL KIT) 15 ML CUP MT SCH ×4 (08:00→22:12)
--- NOTE | 2017-09-01 08:15 | HHI.CCPN ---
Subjective Remarks/Hospital Course 08/29: This is a 61-year-old male with a history of lung cancer undergoing current chemotherapy and radiation who was recently admitted on 07/19 for aspiration pneumonia. During that admission he did have episodes of paroxysmal atrial fibrillation and had an echo from 04/2017 showing an EF of 50-55%. He represents today to the emergency department with acute shortness of breath since last night. Per the ER documentation, he denies any coughing, fever, chills, or other recent symptoms or changes other than the new dyspnea. In the emergency department he was found to be in A. fib with RVR. This initially converted to sinus rhythm 1 after diltiazem 20 mg IV bolus, but then very quickly went back into atrial for ablation with rapid ventricular response. 2 doses of adenosine were not able to convert it. The patient was loaded with amiodarone and infusion was started. After this, the patient become acutely hypoxemic requiring emergent intubation. Please refer to the emergency room physician documentation for additional details regarding the decompensation. When I came to evaluate patient, the patient was recently intubated, sedated. No additional information is available from the patient due to his clinical condition. Review of systems is unobtainable. Critical care medicine is consulted to evaluate manage his acute hypoxic respiratory failure along with his acute supraventricular tachycardia. 08/30: Patient remains intubated and sedated. FiO2 down to 0.5. Patient continues to be on amiodarone infusion and heparin drip. Sedation achieved with propofol and fentanyl. Patient remains hypothermic requiring Gracia hugger, urine output 350 mL's documented since admission. 08/31: No events over the night. Patient remains intubated and sedated. Hemoglobin more stable posttransfusion. Hypothermia resolved, T-max of 100.3. Urine output remains low, 635 mL's over the last 24 hours. Oxygenation is improved. No family present at bedside. Patient remains in sinus rhythm, on amiodarone infusion. No report of melena, hematochezia or coffee-ground aspirate from NG tube. Morning chest x-ray reviewed, worsening infiltrates over the right thorax, unchanged consolidation over the left. 09/01: Afebrile. Patient was extubated yesterday afternoon and emergently intubated 1030 last night secondary to hypoxemic respiratory failure. This x- ray pending this a.m.. The patient also was noted to have severe metabolic acidosis and sodium bicarbonate infusion was initiated. Patient noted to have Pseudomonas, and placed on Zosyn. Patient continues to have leukocytosis with worsening pneumonia ID has been consulted appreciate recommendations. Patient previously DNR palliative has been consulted up on hypoxemic respiratory failure patient was noted to request intubation at that time. Palliative care consult pending. Patient continues on amiodarone infusion now in sinus rhythm. Amiodarone infusion discontinued the patient continued on metoprolol and Cardizem home medications. Hemoglobin appears stable status post 2 units transfusion 48 hours ago. Will do serial H&H's aspirin reinitiated will hold Plavix for now, and continue to follow. Subcu heparin initiated. Objective Vital Signs Date Time Temp Pulse Resp B/P (MAP) Pulse Ox O2 Delivery O2 Flow Rate FiO2 09/01/17 07:00 99 Bi-Pap 60 09/01/17 06:00 92 09/01/17 05:04 133/92 09/01/17 04:00 98.1 10 08/31/17 16:15 15.00 Intake and Output 09/01/17 09/01/17 09/02/17 08:00 16:00 00:00 Intake Total 450 ml Output Total 575 ml Balance -125 ml Result Diagram: 09/01/17 0505 09/01/17 0505 Other Results Microbiology Date/Time Source Procedure Growth Status 08/29/17 19:10 Urine Catheterized Urine Streptococcus pneumoniae Antigen (M - Final PRESUMPTIVE NEGATIVE FOR STREPTOCOCCU... Complete 08/29/17 19:10 Urine Catheterized Urine Legionella Antigen - Final PRESUMPTIVE NEGATIVE FOR LEGIONELLA P... Complete Laboratory Tests Test 08/31/17 09:26 08/31/17 20:06 Blood Gas Puncture Site LT RADIAL RT RADIAL Blood Gas Patient Temperature 98.6 98.6 Blood Gas HCO3 16 mmol/L (22-26) 15 mmol/L (22-26) Blood Gas Base Excess -8.6 mmol/L (-2-2) -11.6 mmol/L (-2-2) Blood Gas Oxygen Saturation 96 % (90-100) 93 % (90-100) Arterial Blood pH 7.33 (7.380-7.420) 7.18 (7.380-7.420) Arterial Blood Partial Pressure CO2 31 mmHg (38-42) 43 mmHg (38-42) Arterial Blood Partial Pressure O2 134 mmHg (61-120) 101 mmHg (61-120) Arterial Blood Oxygen Content 13.7 Vol % (12.0-20.0) 15.7 Vol % (12.0-20.0) Arterial Blood Carboxyhemoglobin 1.4 % (0-4) 0.9 % (0-4) Arterial Blood Methemoglobin 1.4 % (0-2) 1.4 % (0-2) Blood Gas Hemoglobin 10.0 G/DL (12.0-16.0) 11.9 G/DL (12.0-16.0) Oxygen Delivery Device VENTILATOR BIPAP Blood Gas Ventilator Setting 10 IPAP/5 EPAP Blood Gas Inspired Oxygen 60 % 80 % Imaging Last 24 hours Impressions Chest X-Ray 08/31/17 0600 Signed Impressions: Service Date/Time: Thursday, August 31, 2017 02:57 - CONCLUSION: 1. Worsening airspace disease throughout the right lung. 2. Stable left perihilar consolidation with some developing left basilar atelectasis. Jaret Crouch MD Last Impressions CT Angiography 08/29/17 1849 Signed Impressions: Service Date/Time: Tuesday, August 29, 2017 19:36 - CONCLUSION: 1. Multilobar consolidation. 2. No evidence for pulmonary embolism. 3. Extensive coronary calcifications Pk Bae MD Chest X-Ray 08/29/17 1831 Signed Impressions: Service Date/Time: Tuesday, August 29, 2017 18:37 - CONCLUSION: 1. ET tube and NG tube in good position. 2. Mass like area versus consolidation seen in the left perihilar region. 3. Diffuse increased interstitial markings likely related to edema. Dmitri Echeverria MD Objective Remarks General - elderly gentleman, intubated and sedated propofol and fentanyl, chronically ill-appearing HEENT - pupils equal, reactive, sclerae anicteric, neck supple, no nuchal rigidity, neck veins not distended, no carotid bruit, orally intubated CV - regular S1, S2, no murmurs Chest - diffuse coarse breath sounds b/l, good air entry, no wheezes Abdomen - soft, appears non-tender, non-distended, BS present, no hepatomegaly, no splenomegaly Skin - no rashes, no cyanosis Extremities - warm and well perfused, no edema, + peripheral pulses, no clubbing Neuro - RASS -2. intubated and sedated, pupils are equal and reactive, grimaces to pain but does not follow commands A/P Problem List: (1) OBED (acute kidney injury) ICD Code: N17.9 - Acute kidney failure, unspecified (2) Severe protein-calorie malnutrition ICD Code: E43 - Unspecified severe protein-calorie malnutrition Status: Chronic (3) Shortness of breath ICD Code: R06.02 - Shortness of breath Status: Acute (4) Tobacco abuse ICD Code: Z72.0 - Tobacco use Status: Chronic (5) Paroxysmal A-fib ICD Code: I48.0 - Paroxysmal atrial fibrillation Status: Chronic (6) Atrial fibrillation with RVR ICD Code: I48.91 - Unspecified atrial fibrillation Status: Resolved (7) PNA (pneumonia) ICD Code: J18.9 - Pneumonia, unspecified organism (8) COPD (chronic obstructive pulmonary disease) ICD Code: J44.9 - Chronic obstructive pulmonary disease, unspecified (9) Lung cancer ICD Code: C34.90 - Malignant neoplasm of unspecified part of unspecified bronchus or lung (10) Debility ICD Code: R53.81 - Other malaise Status: Chronic (11) Pain ICD Code: R52 - Pain, unspecified Status: Chronic (12) Lung consolidation ICD Code: J18.1 - Lobar pneumonia, unspecified organism Status: Acute (13) Acute respiratory failure with hypoxia and hypercarbia ICD Code: J96.01 - Acute respiratory failure with hypoxia; J96.02 - Acute respiratory failure with hypercapnia Assessment and Plan 1. Acute hypoxic and hypercapnic respiratory failure -slowly improving 2. Possible pneumonia +/-radiation pneumonitis 3. Acute COPD exacerbation 4. Lung cancer currently undergoing radiation therapy and chemotherapy 5. Atrial fibrillation with rapid ventricular response -rate better controlled , remains in sinus rhythm 6. Gram-positive bacteremia -awaiting speciation to see if true pathogen versus contaminant 7. Acute blood loss anemia -hemoglobin improved post 2 units PRBC transfusion. Still no clear source of bleeding identified 8. Hypophosphatemia/Hypomagnesemia -improved 9. Hypothermia -resolved, thyroid functions are normal 10. OBED -with low urine output 1. Continue PRVC, vent settings readjusted, respiratory rate increased to 20, TI decreased to 0.9. Follow-up ABG 2. Vent bundle and bronchodilators but change albuterol to levalbuterol and continue ipratropium 3. Continue methylprednisolone 40mg every 8 4. Continue Vanco and Zosyn, ID consulted appreciate recommendations 5. Continue sedation with propofol and fentanyl but decrease it to a RASS of -1 6. Discontinue amiodarone infusion, initiate metoprolol 50 mg twice daily, and Cardizem 60 mg daily 6 patient's home medication 7. Follow-up blood cultures 8. Dietary consulted for tube feeds 9. If further hemoglobin drop or if any signs of GI bleed will ask for a GI evaluation 10. Glycemic control 11. Change GI prophylaxis to pantoprazole and mechanical DVT prophylaxis with SCDs. Hold heparin in the setting of hemoglobin drop 12. 08/31 started on sodium bicarbonate infusion for severe metabolic acidosis No family present at bedside. Follow-up palliative care team recommendations Patient remains very ill at high risk for further decompensation and . Level 3 follow up Physician Elba Colon Problem Qualifiers (1) PNA (pneumonia): Qualified Codes: J18.1 - Lobar pneumonia, unspecified organism Elba Colon MD September 01, 2017 08:15
[2017-09-01] MEDS: HEPARIN SODIUM - SQ 10,000 UNITS/ML VIAL SQ SCH ×2 (08:52→22:11)
[2017-09-01] MEDS: ASPIRIN 81 MG CHEW TAB CHEW SCH (08:53)
[2017-09-01] MEDS: DOCUSATE SODIUM 50 MG/SENNA 8.6 MG TAB PO SCH ×2 (08:53→22:12)
[2017-09-01] MEDS: DILTIAZEM HCL 60 MG TAB PO SCH ×3 (08:53→22:11)
[2017-09-01] MEDS: METOPROLOL TARTRATE 50 MG TAB PO SCH ×2 (08:53→22:12)
[2017-09-01] MEDS: PRAVASTATIN SOD 10 MG TAB PO SCH (08:54)
[2017-09-01] MEDS: BUDESONIDE-FORMOTEROL 160/4.5 MCG INHALER INH SCH ×2 (09:01→22:13)
--- NOTE | 2017-09-01 09:09 | RADRPT ---
EXAM DATE/TIME: 09/01/2017 08:31 [facility] COMPARISON: CT PULMONARY ANGIOGRAM, August 29, 2017, 19:36. CHEST SINGLE AP, August 31, 2017, 2:57. INDICATIONS : Evaluate for respiratiory disease MEDICAL HISTORY : Hypertension. Chronic obstructive pulmonary disease. Carcinoma, lung. SURGICAL HISTORY : None. ENCOUNTER: Subsequent ACUITY: 1 week PAIN SCORE: Non-responsive. LOCATION: Bilateral chest FINDINGS: ET tube tip is 2 cm from the evelia. The NG tube is draped into the stomach. The heart size is normal . There continues to BE a Mass like area seen in the left hilum. There is diffuse increased interstit ial markings. There is elevation of the left hemidiaphragm. Some degree of a left effusion needs to b e considered. CONCLUSION: 1. Persistent 7 cm masslike area seen in the left hilum. 2. Diffuse interstitial disease. 3. Suspected subpulmonic left pleural effusion. Dmitri Echeverria MD on September 01, 2017 at 9:05 Board Certified Radiologist. This report was verified electronically.
[2017-09-01] MEDS: PANTOPRAZOLE SODIUM 40 MG VIAL IV PUSH SCH (11:35)
--- NOTE | 2017-09-01 12:42 | MB ---
cc: Herve Zarate MD DATE: 09/01/2017 REQUESTING PHYSICIAN: Dr. Colon REASON: Worsening pneumonia, status post reintubation. HISTORY OF PRESENT ILLNESS: This is a 61-year-old white male who presented to the emergency department on 08/29 with respiratory symptoms. The patient developed shortness of breath. It started the night prior to presenting. He was noted to be in atrial fibrillation with rapid ventricular response in the emergency department and heart rate of 170. Attempt at correcting the AFib was done and the patient went into respiratory distress, and he was intubated. He remained on the ventilator and culture of the sputum was performed on 08/30 and has Pseudomonas species. One blood culture bottle has Staph coagulase negative from 08/29. The patient had low-grade fever of 100.3 on 08/30. He was afebrile when he presented. His heart rate was 154. The white blood cell count was normal. Chest x-ray showed consolidative changes at the left mid lung with volume loss. CT scan was performed subsequently and it showed bilateral extensive multilobar consolidation. The patient has been receiving IV antibiotics. He is currently sedated. He was noted to be agitated when the sedation was lifted. He was extubated and had to be reintubated early today. Current temperature is 96.3. The patient has greenish secretions suctioned via the endotracheal tube. PAST MEDICAL HISTORY: Left lung cancer, being treated with chemotherapy and radiation, coronary artery disease, peripheral arterial disease, COPD, hypertension, anxiety, depression, bilateral cataract surgery, recent pneumonia due to Pseudomonas in 04/2017 and 07/2017. history of iliac artery bypass surgery. ALLERGIES: NO KNOWN DRUG ALLERGIES. MEDICATIONS: Piperacillin/tazobactam, Pravachol, Lopressor, aspirin, Cardizem, subcutaneous heparin, methylprednisolone, Protonix, insulin, Nata-Colace, amiodarone. The patient has also been receiving vancomycin, which is now on hold. SOCIAL HISTORY: No alcohol. Positive tobacco. No illicit drugs. FAMILY HISTORY: Unable to obtain. REVIEW OF SYSTEMS: Unable to obtain. The patient is intubated on the ventilator. PHYSICAL EXAMINATION: GENERAL: This is slender, well-developed male who is sedated on the ventilator. VITAL SIGNS: Include temperature 96.3, BP 113/79, heart rate 78, respirations per ventilator. He is currently on 60% FiO2. HEENT: The head is atraumatic. Extraocular movements cannot be assessed since the patient cannot cooperate. Oropharynx intubated. NECK: No swelling. No adenopathy. LUNGS: Coarse rhonchi, bilateral. HEART: Regular rate and rhythm. Slight systolic murmur at the left sternal border. ABDOMEN: Soft, nontender. No masses palpable. RECTAL: Not performed. EXTREMITIES: Ecchymosis at the right upper extremity. Trace edema at the upper extremities. No clubbing or cyanosis. SKIN: No diffuse rash. The skin is warm and moist. NEUROLOGIC: Unable to assess. PSYCHIATRIC: Unable to assess. LABORATORY DATA: WBC 11.5, platelet count 235, hemoglobin 11.1, creatinine 1.33, BUN 18, sodium 141. Estimated GFR of 54. IMPRESSION: 1. Bilateral pneumonia due to Pseudomonas. 2. Respiratory failure, acute. 3. History of lung cancer, being treated with chemotherapy and radiation therapy. 4. One positive blood culture from 08/29 showing Staphylococcus species coagulase negative. Very likely contamination. RECOMMENDATIONS: 1. Continue piperacillin/tazobactam. 2. Add Levaquin, adjusted for renal function. 3. Monitor temperature and white blood cell count. 4. Monitor clinical status. 5. Discontinue vancomycin. 6. Monitor clinical response. The patient is very critically ill. Thank you for this consultation. The patient's progress will be monitored and further recommendations will be given upon up as necessary. MD KRISTEN Del Rosario/VINCE , 12:07 PM , 12:41 PM KATARZYNA
[2017-09-01 12:46] LABS: HEMATOCRIT 31.1 % (39.0-51.0); HEMOGLOBIN 10.4 GM/DL (13.0-17.0)
[2017-09-01] MEDS: LEVOFLOXACIN 250 MG PREMIX INJ 50 ML IV SCH (13:16)
[2017-09-01 14:29] LABS: HISTOPLASMA ANTIGEN UR RESULT Negative (Negative)
--- NOTE | 2017-09-01 15:15 | HHI.HCPN ---
Reason for visit a. To assist with evaluation and management of symptoms including: Shortness of breath, pain, debility b. To assist medical decision maker(s) with: better understanding of current medical conditions; weighing benefits/burdens of medical treatment options; making medical treatment decisions. Subjective/Interval History Follow up medically necessary for symptom management and further clarification of goals of care. Patient self extubated himself yesterday around 4:30 PM.Per Bedside RN Eduarda who was assigned to patient yesterday, patient was asked about 3 different times if he would want to be reintubated again if he goes into respiratory failure and he agreed. Patient was emergently reintubated around 10:30 PM yesterday secondary to hypoxemic respiratory failure. Patient seen and examined in MICU. Patient is intubated, sedated on mechanical ventilation. Patient withdrawing to noxious stimulation with bilateral lower extremities. Laboratory workup today revealing WBC 11.5, hemoglobin 11.1, hematocrit 36.4, platelet count 235, potassium 4.2, BUN/creatinine 18/1.33, random glucose 157, calcium 7.9. Chest x-ray today revealed persistent 7 cm masslike area seen in the left hilum. Diffuse interstitial disease. Suspected subpulmonic left pleural effusion. Infectious disease Dr. Zarate consulted 09/01/17 for evaluation and medical management of worsening pneumonia, recommended continuing with Zosyn and added Levaquin. Telephone conversation with patient's consent who is also his healthcare surrogate Dahiana Mayorga. Updated her on patient's current medical condition and events that occurred last night. Readdressed code status and patient`s HCS would like to attempt to contact patient`s oncologist Dr. Will to find out more regarding patient`s cancer status and his overall medical condition prior to changing patient`s code status. Patient`s HCS feels that if patient negated his DNR status, she may be going against his wishes if she changes it now, though she mentioned that "maybe patient agreed to be reintubated due to normal survival instincts since he was struggling to breathe ". Explained to her that given patient`s medical condition, including cancer and COPD, patient remains at high risk for further complications, deterioration and decline. Dahiana understands how critical patient is and since she had not discussed this issue with her cousin she now wants to gather more information from his oncologist before making any decisions. In the meantime, goals remain aggressive and she would want to be kept informed of patient`s medical status. Case discussed with bedside RN. . Family/friend interactions Telephone conversation with patient's healthcare surrogate Dahiana . Advance Directives Health Care Surrogate: Copy in medical record Advance Directive Specifics Date completed: [facility] -April 08, 2017 . Health Care Surrogate(s): HCS- (Long time friend-15 yrs) Kay Rizvi [phone]- (July 2017) Alternate HCS- Cousin- Dahiana Mayorga [phone] (will serve as HCS) . Objective Vital Signs Date Time Temp Pulse Resp B/P (MAP) Pulse Ox O2 Delivery O2 Flow Rate FiO2 09/01/17 14:00 76 09/01/17 13:24 96 60 09/01/17 12:00 97.9 78 24 115/79 (91) 97 09/01/17 12:00 60 09/01/17 12:00 78 09/01/17 10:29 95 60 09/01/17 10:00 77 09/01/17 08:00 96.3 86 21 132/91 (105) 99 09/01/17 08:00 86 09/01/17 08:00 60 09/01/17 07:50 99 60 09/01/17 07:00 99 Bi-Pap 60 09/01/17 06:04 98 60 09/01/17 06:00 92 09/01/17 05:04 91 133/92 09/01/17 04:00 98 09/01/17 04:00 98.1 98 10 140/97 (111) 100 09/01/17 04:00 60 09/01/17 02:00 100 09/01/17 01:34 95 60 09/01/17 00:00 60 09/01/17 00:00 100 09/01/17 00:00 98.2 100 22 140/95 (110) 96 08/31/17 22:48 98 60 08/31/17 22:30 60 08/31/17 22:00 123 08/31/17 20:26 95 80 08/31/17 20:00 129 08/31/17 20:00 98.1 129 45 170/94 (119) 94 08/31/17 19:00 95 Bi-Pap 70 08/31/17 19:00 127 186/114 08/31/17 18:27 95 70 08/31/17 18:24 127 169/108 08/31/17 18:15 95 Bi-Pap 70 08/31/17 18:00 127 08/31/17 17:00 118 08/31/17 16:15 94 Non-Rebreather 15.00 08/31/17 16:15 93 Non-Rebreather 08/31/17 16:00 91 08/31/17 16:00 97.6 91 20 160/99 (119) 99 08/31/17 16:00 50 08/31/17 15:32 98 60 08/31/17 15:00 97.5 62 20 133/83 (100) 99 08/31/17 15:00 62 Intake & Output 09/01/17 09/01/17 07:00 19:00 Intake Total 500 ml 447 ml Output Total 575 ml Balance -75 ml 447 ml Intake IV Total 500 ml 447 ml Output Urine Total 575 ml # Bowel Movements 0 Physical Exam CONSTITUTIONAL/GENERAL: This is a chronically ill patient, intubated, sedated. TUBES/LINES/DRAINS: ETT, NGT, PIV, Dockery catheter, bilateral upper extremity soft restraints SKIN: No jaundice, rashes, or lesions. Ecchymoses on upper extremities. No wounds seen anteriorly. Not diaphoretic. HEAD: Atraumatic. Normocephalic. EYES: Pupils 2 mm, questionable reaction.No scleral icterus. No injection or drainage. Fundi not examined. ENT: Unable to assess Hearing. Nose without bleeding or purulent drainage. Moist oral mucosa NECK: Trachea midline. Supple, nontender. CARDIOVASCULAR: S1-S2 normal, no murmurs, no JVD. peripheral pulses symmetric. RESPIRATORY/CHEST: Symmetric, unlabored respirations. Diminished in the bases. No wheezes, rales, or rhonchi. GASTROINTESTINAL: Abdomen soft, non-tender, nondistended. Bowel sounds present. GENITOURINARY: Without palpable bladder distension. Dockery catheter in place. MUSCULOSKELETAL: Extremities without clubbing, cyanosis. Edema to bilateral upper extremities. No mottling or clubbing. NEUROLOGICAL: Intubated, sedated on mechanical ventilation. PSYCHIATRIC: Unable to assess at this time. . Diagnostic Tests Laboratory Laboratory Tests Test 4/28/18 15:40 08/29/17 19:05 08/29/17 19:10 08/29/17 21:58 White Blood Count 8.6 TH/MM3 (4.0-11.0) Red Blood Count 2.86 MIL/MM3 (4.50-5.90) Hemoglobin 8.6 GM/DL (13.0-17.0) Hematocrit 26.0 % (39.0-51.0) Mean Corpuscular Volume 90.8 FL (80.0-100.0) Mean Corpuscular Hemoglobin 30.2 PG (27.0-34.0) Mean Corpuscular Hemoglobin Concent 33.3 % (32.0-36.0) Red Cell Distribution Width 20.1 % (11.6-17.2) Platelet Count 299 TH/MM3 (150-450) Mean Platelet Volume 7.5 FL (7.0-11.0) Neutrophils (%) (Auto) 80.7 % (16.0-70.0) Lymphocytes (%) (Auto) 5.1 % (9.0-44.0) Monocytes (%) (Auto) 11.8 % (0.0-8.0) Eosinophils (%) (Auto) 2.1 % (0.0-4.0) Basophils (%) (Auto) 0.3 % (0.0-2.0) Neutrophils # (Auto) 7.0 TH/MM3 (1.8-7.7) Lymphocytes # (Auto) 0.4 TH/MM3 (1.0-4.8) Monocytes # (Auto) 1.0 TH/MM3 (0-0.9) Eosinophils # (Auto) 0.2 TH/MM3 (0-0.4) Basophils # (Auto) 0.0 TH/MM3 (0-0.2) CBC Comment DIFF FINAL Differential Comment Prothrombin Time 11.1 SEC (9.8-11.6) Prothromb Time International Ratio 1.1 RATIO Activated Partial Thromboplast Time 31.3 SEC (24.3-30.1) 26.7 SEC (24.3-30.1) Blood Urea Nitrogen 13 MG/DL (7-18) Creatinine 1.10 MG/DL (0.60-1.30) Random Glucose 125 MG/DL (74-106) Total Protein 6.7 GM/DL (6.4-8.2) Albumin 2.7 GM/DL (3.4-5.0) Calcium Level 8.4 MG/DL (8.5-10.1) Alkaline Phosphatase 97 U/L (45-117) Aspartate Amino Transf (AST/SGOT) 13 U/L (15-37) Alanine Aminotransferase (ALT/SGPT) 15 U/L (12-78) Total Bilirubin 0.4 MG/DL (0.2-1.0) Sodium Level 137 MEQ/L (136-145) Potassium Level 4.1 MEQ/L (3.5-5.1) Chloride Level 101 MEQ/L (98-107) Carbon Dioxide Level 24.8 MEQ/L (21.0-32.0) Anion Gap 11 MEQ/L (5-15) Estimat Glomerular Filtration Rate 68 ML/MIN (>89) Phosphorus Level 2.6 MG/DL (2.5-4.9) Magnesium Level 1.7 MG/DL (1.5-2.5) Total Creatine Kinase 36 U/L (39-308) Troponin I 0.03 NG/ML (0.02-0.05) B-Type Natriuretic Peptide 753 PG/ML (0-100) Thyroid Stimulating Hormone 3rd Gen 2.230 uIU/ML (0.358-3.740) Blood Gas Puncture Site LT FOOT Blood Gas Patient Temperature 98.6 Blood Gas HCO3 21 mmol/L (22-26) Blood Gas Base Excess -5.4 mmol/L (-2-2) Blood Gas Oxygen Saturation 97 % (90-100) Arterial Blood pH 7.23 (7.380-7.420) Arterial Blood Partial Pressure CO2 53 mmHg (38-42) Arterial Blood Partial Pressure O2 268 mmHG (61-120) Arterial Blood Oxygen Content 10.7 Vol % (12.0-20.0) Arterial Blood Carboxyhemoglobin 1.9 % (0-4) Arterial Blood Methemoglobin 0.6 % (0-2) Blood Gas Hemoglobin 7.3 G/DL (12.0-16.0) Oxygen Delivery Device VENTILATOR Blood Gas Ventilator Setting Blood Gas Inspired Oxygen 100 % Urine Color LIGHT-YELLOW (YELLW/STRAW) Urine Turbidity CLEAR (CLEAR) Urine pH 7.5 (5.0-8.5) Urine Specific Rickman 1.013 (1.002-1.035) Urine Protein 30 mg/dL (NEG-TRACE) Urine Glucose (UA) NEG mg/dL (NEG) Urine Ketones NEG mg/dL (NEG) Urine Occult Blood NEG (NEG) Urine Nitrite NEG (NEG) Urine Bilirubin NEG (NEG) Urine Urobilinogen LESS THAN 2.0 MG/DL (LESS Urine Leukocyte Esterase NEG (NEG) Urine RBC 2 /hpf (0-3) Urine WBC 1 /hpf (0-5) Urine Hyaline Casts 2 /lpf (RARE) Microscopic Urinalysis Comment CATH-CULT NOT IND Test 08/29/17 23:20 08/30/17 00:06 08/30/17 07:48 08/30/17 09:12 Nasal Screen MRSA (PCR) MRSA NOT DETECTED (NOT Total Creatine Kinase 41 U/L (39-308) Troponin I 0.16 NG/ML (0.02-0.05) White Blood Count 7.7 TH/MM3 (4.0-11.0) Red Blood Count 2.20 MIL/MM3 (4.50-5.90) Hemoglobin 6.6 GM/DL (13.0-17.0) 6.6 GM/DL (13.0-17.0) Hematocrit 20.1 % (39.0-51.0) 20.1 % (39.0-51.0) Mean Corpuscular Volume 91.2 FL (80.0-100.0) Mean Corpuscular Hemoglobin 30.0 PG (27.0-34.0) Mean Corpuscular Hemoglobin Concent 32.9 % (32.0-36.0) Red Cell Distribution Width 20.5 % (11.6-17.2) Platelet Count 234 TH/MM3 (150-450) Mean Platelet Volume 7.3 FL (7.0-11.0) Activated Partial Thromboplast Time 54.4 SEC (24.3-30.1) Blood Urea Nitrogen 12 MG/DL (7-18) Creatinine 0.87 MG/DL (0.60-1.30) Random Glucose 72 MG/DL (74-106) Calcium Level 7.5 MG/DL (8.5-10.1) Sodium Level 138 MEQ/L (136-145) Potassium Level 4.0 MEQ/L (3.5-5.1) Chloride Level 109 MEQ/L (98-107) Carbon Dioxide Level 21.0 MEQ/L (21.0-32.0) Anion Gap 8 MEQ/L (5-15) Estimat Glomerular Filtration Rate 89 ML/MIN (>89) Test 08/30/17 11:53 08/30/17 11:57 08/30/17 22:51 08/31/17 05:19 Activated Partial Thromboplast Time 29.9 SEC (24.3-30.1) Free Thyroxine 1.24 NG/DL (0.76-1.46) Free Triiodothyronine (T3) pg/dL 1.61 PG/ML (2.18-3.98) Thyroid Stimulating Hormone 3rd Gen 2.050 uIU/ML (0.358-3.740) Hemoglobin 9.9 GM/DL (13.0-17.0) Hematocrit 30.1 % (39.0-51.0) Blood Gas Puncture Site RT RADIAL Blood Gas Patient Temperature 98.6 Blood Gas HCO3 18 mmol/L (22-26) Blood Gas Base Excess -8.8 mmol/L (-2-2) Blood Gas Oxygen Saturation 92 % (90-100) Arterial Blood pH 7.20 (7.380-7.420) Arterial Blood Partial Pressure CO2 48 mmHg (38-42) Arterial Blood Partial Pressure O2 86 mmHg (61-120) Arterial Blood Oxygen Content 13.8 Vol % (12.0-20.0) Arterial Blood Carboxyhemoglobin 1.4 % (0-4) Arterial Blood Methemoglobin 1.5 % (0-2) Blood Gas Hemoglobin 10.7 G/DL (12.0-16.0) Oxygen Delivery Device VENTILATOR Blood Gas Ventilator Setting [facility]/AC Blood Gas Inspired Oxygen 60 % Test 08/31/17 06:25 08/31/17 09:26 08/31/17 20:06 09/01/17 05:05 White Blood Count 12.4 TH/MM3 (4.0-11.0) 11.5 TH/MM3 (4.0-11.0) Red Blood Count 3.55 MIL/MM3 (4.50-5.90) 3.86 MIL/MM3 (4.50-5.90) Hemoglobin 10.5 GM/DL (13.0-17.0) 11.1 GM/DL (13.0-17.0) Hematocrit 31.8 % (39.0-51.0) 34.6 % (39.0-51.0) Mean Corpuscular Volume 89.4 FL (80.0-100.0) 89.6 FL (80.0-100.0) Mean Corpuscular Hemoglobin 29.7 PG (27.0-34.0) 28.8 PG (27.0-34.0) Mean Corpuscular Hemoglobin Concent 33.2 % (32.0-36.0) 32.1 % (32.0-36.0) Red Cell Distribution Width 19.7 % (11.6-17.2) 19.9 % (11.6-17.2) Platelet Count 220 TH/MM3 (150-450) 235 TH/MM3 (150-450) Mean Platelet Volume 7.3 FL (7.0-11.0) 7.6 FL (7.0-11.0) Prothrombin Time 11.7 SEC (9.8-11.6) Prothromb Time International Ratio 1.2 RATIO Activated Partial Thromboplast Time 34.2 SEC (24.3-30.1) Blood Urea Nitrogen 11 MG/DL (7-18) 18 MG/DL (7-18) Creatinine 1.04 MG/DL (0.60-1.30) 1.33 MG/DL (0.60-1.30) Random Glucose 100 MG/DL (74-106) 157 MG/DL (74-106) Calcium Level 7.6 MG/DL (8.5-10.1) 7.9 MG/DL (8.5-10.1) Sodium Level 139 MEQ/L (136-145) 141 MEQ/L (136-145) Potassium Level 4.2 MEQ/L (3.5-5.1) 4.2 MEQ/L (3.5-5.1) Chloride Level 111 MEQ/L (98-107) 111 MEQ/L (98-107) Carbon Dioxide Level 19.8 MEQ/L (21.0-32.0) 17.3 MEQ/L (21.0-32.0) Anion Gap 8 MEQ/L (5-15) 13 MEQ/L (5-15) Estimat Glomerular Filtration Rate 72 ML/MIN (>89) 54 ML/MIN (>89) Blood Gas Puncture Site LT RADIAL RT RADIAL Blood Gas Patient Temperature 98.6 98.6 Blood Gas HCO3 16 mmol/L (22-26) 15 mmol/L (22-26) Blood Gas Base Excess -8.6 mmol/L (-2-2) -11.6 mmol/L (-2-2) Blood Gas Oxygen Saturation 96 % (90-100) 93 % (90-100) Arterial Blood pH 7.33 (7.380-7.420) 7.18 (7.380-7.420) Arterial Blood Partial Pressure CO2 31 mmHg (38-42) 43 mmHg (38-42) Arterial Blood Partial Pressure O2 134 mmHg (61-120) 101 mmHg (61-120) Arterial Blood Oxygen Content 13.7 Vol % (12.0-20.0) 15.7 Vol % (12.0-20.0) Arterial Blood Carboxyhemoglobin 1.4 % (0-4) 0.9 % (0-4) Arterial Blood Methemoglobin 1.4 % (0-2) 1.4 % (0-2) Blood Gas Hemoglobin 10.0 G/DL (12.0-16.0) 11.9 G/DL (12.0-16.0) Oxygen Delivery Device VENTILATOR BIPAP Blood Gas Ventilator Setting 10 IPAP/5 EPAP Blood Gas Inspired Oxygen 60 % 80 % Test 09/01/17 09:45 09/01/17 12:27 Vancomycin Level Trough 32.2 MCG/ML (5.0-10.0) Hemoglobin 10.4 GM/DL (13.0-17.0) Hematocrit 31.1 % (39.0-51.0) Result Diagram: 09/01/17 1227 09/01/17 0505 Microbiology Microbiology Date/Time Source Procedure Growth Status 08/29/17 20:40 Blood Peripheral Aerobic Blood Culture - Preliminary Staph Sp Coagulase Negative Resulted 08/29/17 20:40 Blood Peripheral Anaerobic Blood Culture - Preliminary NO GROWTH IN 3 DAYS Resulted 08/29/17 20:25 Blood Peripheral Aerobic Blood Culture - Preliminary NO GROWTH IN 3 DAYS Resulted 08/29/17 20:25 Blood Peripheral Anaerobic Blood Culture - Preliminary NO GROWTH IN 3 DAYS Resulted 08/30/17 04:45 Sputum Endotracheal Gram Stain - Final Complete 08/30/17 04:45 Sputum Culture - Final Pseudomonas Aeruginosa Complete 08/29/17 19:10 Urine Catheterized Urine Streptococcus pneumoniae Antigen (M - Final PRESUMPTIVE NEGATIVE FOR STREPTOCOCCU... Complete 08/29/17 19:10 Urine Catheterized Urine Legionella Antigen - Final PRESUMPTIVE NEGATIVE FOR LEGIONELLA P... Complete Imaging Last 24 hours Impressions Chest X-Ray 09/01/17 0000 Signed Impressions: Service Date/Time: Friday, September 01, 2017 08:31 - CONCLUSION: 1. Persistent 7 cm masslike area seen in the left hilum. 2. Diffuse interstitial disease. 3. Suspected subpulmonic left pleural effusion. Dmitri Echeverria MD Procedures 08/29/17-intubation 08/31/17-self extubation 08/31/17-reintubated . Assessment and Plan Disease Oriented Problem List: (1) Acute respiratory failure with hypoxia and hypercarbia (2) Lung cancer (3) Atrial fibrillation with RVR (4) Lung consolidation (5) COPD (chronic obstructive pulmonary disease) Symptom Scale: (1) Shortness of breath Comment: Hx of lung cancer. CT angiography revealed multilobar consolidation and no evidence for pulmonary embolism, extensive coronary calcifications. . (2) Pain Comment: Risk for pain-from procedure (intubation), bedbound status. . (3) Debility 0-10 Scale: Unable to quantify Comment: Progressive . Pertinent Non-Medical Issues Psychosocial:Patient was born and raised in [place]. He left [place] the age of 20. Patient moved to [place] in 1975. Patient has a 2 years college degree in [employer]. 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 Patient was and twice. He never had children. Spiritual:N zoroastrianism affiliation Legal:Patient has a [facility] form signed and completed a Community DNR Ethical issues impacting care:None identified at this time . Important Contacts Alternate [facility]- Cousin- Dahiana Mayorga [phone] Friend-Neom [phone] [facility]- (Long time friend-15 yrs) Kay Rizvi [phone] . Prognosis Mr Adams is a 61 years old male with a past medical history significant of lung cancer s/p radiation, COPD, hypertension, coronary artery disease and tobacco use. Patient presented to the ER via EMS on 08/29/17 complaining of shortness of breath that had started the night before, generalized malaise and weakness. Clinical course complicated with atrial fibrillation with RVR, and acute hypoxic and hypercapnic respiratory failure. Given ongoing comorbidities , patient remains at high risk for further complications, deterioration and decline. . Code Status: Full Code Plan PLAN: Legal decision maker: Patient is currently intubated, sedated on mechanical ventilation and is not able to participate in decision-making. Patient`s cousin Dahiana Mayorga whom he has designated as his alternate healthcare surrogate will make medical decisions for patient. Goals: Aggressive CODE STATUS: Full code Telephone conversation with patient's consent who is also his healthcare surrogate Dahiana Mayorga. Updated her on patient's current medical condition and events that occurred last night. Readdressed code status and patient`s HCS would like to attempt to contact patient`s oncologist Dr. Will to find out more regarding patient`s cancer status and his overall medical condition prior to changing patient`s code status. Patient`s HCS feels that if patient negated his DNR status, she may be going against his wishes if she changes it now, though she mentioned that "maybe patient agreed to be reintubated due to normal survival instincts since he was struggling to breathe ". Explained to her that given patient`s medical condition, including cancer and COPD, patient remains at high risk for further complications, deterioration and decline. Dahiana understands how critical patient is and since she had not discussed this issue with her cousin she now wants to gather more information from his oncologist before making any decisions. In the meantime, goals remain aggressive and she would want to be kept informed of patient`s medical status. SYMPTOMS: * Shortness of breath: Patient has history of lung cancer, COPD and tobacco use. Patient presented with shortness of breath. Intubated 08/29, self extubated 08/31, reintubated 08/31 secondary to respiratory failure. Patient chest X-ray showing persistent 7 cm masslike area in the left hilum and diffuse interstitial disease with suspected subpulmonic left pleural effusion. Infectious disease consulted. Solu-Medrol and duo nebs prn. Currently on FiO2 60%. No recommendations at this time. * Pain: Patient is at risk for pain, required intubation in the ER. Currently bedbound. Fentanyl infusion discontinued. no signs of pain, discomfort noted. No recommendations at this time. * Debility: Progressive: Hx of lung cancer s/p radiation. Multiple hospitalizations. Patient may benefit from PT consultation if goals remain aggressive. . Palliative care will continue to follow the patient during hospital course as condition evolves, to assist patient/decision-maker with understanding of their medical conditions, weighing benefits/burdens of treatment options, for clarification of goals of treatment. Additionally will assist with any symptoms of palliative concern Attestation To help prompt me to consider important information that might be impacting today's encounter and assessment, information from prior notes written by myself or my colleagues may have been "brought forward" into today's note. My signature on this note, however, is an attestation that I personally performed the exam, history, and/or decision-making noted today, and, unless otherwise indicated, the interactions with patient, family, and staff as well as the review of records all occurred today. I also attest that the listed assessment and stated plan reflect my best clinical judgment today based on the combination of historical information, prior notes, and today's exam/ interactions. When time spent is documented, it refers only to time spent today by the signer, or if indicated, combined time spent today by collaborating physician/nurse practitioner. Randa Tenorio September 01, 2017 15:15
[2017-09-02] VITALS (21 sets, daily range): BP systolic 122–136; BP diastolic 79–88; PULSE 50–79; RESP 15–20; TEMP 97.3–98.8; O2SAT 92–100
[2017-09-02 00:08] LABS: HEMATOCRIT 29.5 % (39.0-51.0); HEMOGLOBIN 9.9 GM/DL (13.0-17.0)
[2017-09-02] MEDS: SODIUM BICARBONATE 8.4% INJ 150 MEQ in DEXTROSE 5% IN WATE 1000ML INJ 1,000 ML IV SCH ×2 (01:08)
[2017-09-02] MEDS: PIPERACIL-TAZO 4.5 GM PREMIX 100 ML IV SCH ×4 (01:09→22:10)
[2017-09-02] MEDS: CHLORHEXIDINE GLUCONATE 2 % 1 PACK (2 CLOTHS) TOP SCH (04:00)
[2017-09-02] MEDS: RESP: LEVALBUTEROL HYDROCHLORIDE 1.25 MG/3 ML NEB (SCH) NEB ×4 (04:10→19:48)
[2017-09-02] MEDS: RESP: IPRATROPIUM 0.5 MG/2.5 ML NEB NEB SCH ×4 (04:10→19:48)
[2017-09-02] MEDS: methylPREDNISolone SOD SUCC 40 MG/1 ML VIAL IV PUSH SCH ×3 (04:43→22:05)
[2017-09-02] MEDS: DILTIAZEM HCL 60 MG TAB PO SCH ×4 (04:43→22:06)
[2017-09-02] MEDS: INSULIN NovoLIN REGULAR SUPPLEMENTAL SCALE SQ SCH ×4 (05:32→17:43)
[2017-09-02 06:48] LABS: HEMATOCRIT 30.7 % (39.0-51.0); HEMOGLOBIN 10.2 GM/DL (13.0-17.0); MEAN CELL VOLUME 88.6 FL (80.0-100.0); MEAN CORPUSCULAR HEMOGLOBIN 29.5 PG (27.0-34.0); MEAN CORPUSCULAR HGB CONC 33.2 % (32.0-36.0); MEAN PLATELET VOLUME 7.6 FL (7.0-11.0); PLATELET COUNT 209 TH/MM3 (150-450); RED BLOOD COUNT 3.47 MIL/MM3 (4.50-5.90); RED CELL DISTRIBUTION WIDTH 19.3 % (11.6-17.2); WHITE BLOOD COUNT 11.8 TH/MM3 (4.0-11.0)
--- NOTE | 2017-09-02 06:57 | RADRPT ---
EXAM DATE/TIME: 09/02/2017 06:32 [place] COMPARISON: CHEST SINGLE AP, September 01, 2017, 8:31. INDICATIONS : Shortness of breath. MEDICAL HISTORY : Hypertension. Chronic obstructive pulmonary disease. Carcinoma, lung. SURGICAL HISTORY : None. ENCOUNTER: Subsequent ACUITY: 4 - 6 days PAIN SCORE: Non-responsive. LOCATION: Bilateral chest FINDINGS: A single view of the chest demonstrates persistent bilateral airspace disease. Interval worsening in the left base with possible developing effusion. Heart size is normal. Endotracheal and nasogastric t ubes appear to be stable in position. Osseous structures are intact CONCLUSION: Bilateral airspace disease with interval worsening in the left base. Possible developing left-si ded effusion. Jaret Crouch MD on September 02, 2017 at 6:54 Board Certified Radiologist. This report was verified electronically.
[2017-09-02 07:35] LABS: BICARBONATE 28.2 MEQ/L (21.0-32.0); CALCIUM 7.5 MG/DL (8.5-10.1); CREATININE 1.31 MG/DL (0.60-1.30); MAGNESIUM 2.1 MG/DL (1.5-2.5); PHOSPHORUS 3.6 MG/DL (2.5-4.9)
[2017-09-02] MEDS: CHLORHEXIDINE 0.12% (ORAL KIT) 15 ML CUP MT SCH ×4 (08:00→22:09)
[2017-09-02] MEDS ORDERED: BISACODYL 10 MG SUPP RECTAL PRN (08:15)
[2017-09-02] MEDS ORDERED: SENNOSIDES 8.6 MG TAB PO PRN (08:15)
[2017-09-02] MEDS ORDERED: MAGNESIUM HYDROXIDE SUSP 30 ML CUP PO PRN (08:15)
[2017-09-02] MEDS ORDERED: LACTULOSE SYRUP 20 GM/30 ML CUP PO PRN (08:15)
--- NOTE | 2017-09-02 08:19 | HHI.CCPN ---
Subjective Remarks/Hospital Course 08/29: This is a 61-year-old male with a history of lung cancer undergoing current chemotherapy and radiation who was recently admitted on 07/19 for aspiration pneumonia. During that admission he did have episodes of paroxysmal atrial fibrillation and had an echo from 04/2017 showing an EF of 50-55%. He represents today to the emergency department with acute shortness of breath since last night. Per the ER documentation, he denies any coughing, fever, chills, or other recent symptoms or changes other than the new dyspnea. In the emergency department he was found to be in A. fib with RVR. This initially converted to sinus rhythm 1 after diltiazem 20 mg IV bolus, but then very quickly went back into atrial for ablation with rapid ventricular response. 2 doses of adenosine were not able to convert it. The patient was loaded with amiodarone and infusion was started. After this, the patient become acutely hypoxemic requiring emergent intubation. Please refer to the emergency room physician documentation for additional details regarding the decompensation. When I came to evaluate patient, the patient was recently intubated, sedated. No additional information is available from the patient due to his clinical condition. Review of systems is unobtainable. Critical care medicine is consulted to evaluate manage his acute hypoxic respiratory failure along with his acute supraventricular tachycardia. 08/30: Patient remains intubated and sedated. FiO2 down to 0.5. Patient continues to be on amiodarone infusion and heparin drip. Sedation achieved with propofol and fentanyl. Patient remains hypothermic requiring Gracia hugger, urine output 350 mL's documented since admission. 08/31: No events over the night. Patient remains intubated and sedated. Hemoglobin more stable posttransfusion. Hypothermia resolved, T-max of 100.3. Urine output remains low, 635 mL's over the last 24 hours. Oxygenation is improved. No family present at bedside. Patient remains in sinus rhythm, on amiodarone infusion. No report of melena, hematochezia or coffee-ground aspirate from NG tube. Morning chest x-ray reviewed, worsening infiltrates over the right thorax, unchanged consolidation over the left. 09/01: Afebrile. Patient was extubated yesterday afternoon and emergently intubated 1030 last night secondary to hypoxemic respiratory failure. This x- ray pending this a.m.. The patient also was noted to have severe metabolic acidosis and sodium bicarbonate infusion was initiated. Patient noted to have Pseudomonas, and placed on Zosyn. Patient continues to have leukocytosis with worsening pneumonia ID has been consulted appreciate recommendations. Patient previously DNR palliative has been consulted up on hypoxemic respiratory failure patient was noted to request intubation at that time. Palliative care consult pending. Patient continues on amiodarone infusion now in sinus rhythm. Amiodarone infusion discontinued the patient continued on metoprolol and Cardizem home medications. Hemoglobin appears stable status post 2 units transfusion 48 hours ago. Will do serial H&H's aspirin reinitiated will hold Plavix for now, and continue to follow. Subcu heparin initiated. 09/02: Objective Vital Signs Date Time Temp Pulse Resp B/P (MAP) Pulse Ox O2 Delivery O2 Flow Rate FiO2 09/02/17 06:00 71 09/02/17 04:11 97 100 09/02/17 04:00 98.4 20 131/84 (100) 09/01/17 19:00 Mechanical Ventilator 08/31/17 16:15 15.00 Intake and Output 09/02/17 09/02/17 09/03/17 08:00 16:00 00:00 Intake Total 1220 ml Output Total 450 ml Balance 770 ml Result Diagram: 09/02/1760509/02/17605 Other Results Laboratory Tests Test 09/01/17 23:42 Blood Gas Puncture Site RT RADIAL Blood Gas Patient Temperature 98.6 Blood Gas HCO3 27 mmol/L (22-26) Blood Gas Base Excess 2.4 mmol/L (-2-2) Blood Gas Oxygen Saturation 90 % (90-100) Arterial Blood pH 7.42 (7.380-7.420) Arterial Blood Partial Pressure CO2 42 mmHg (38-42) Arterial Blood Partial Pressure O2 68 mmHg (61-120) Arterial Blood Oxygen Content 12.6 Vol % (12.0-20.0) Arterial Blood Carboxyhemoglobin 1.3 % (0-4) Arterial Blood Methemoglobin 1.3 % (0-2) Blood Gas Hemoglobin 9.9 G/DL (12.0-16.0) Oxygen Delivery Device VENTILATOR Blood Gas Ventilator Setting [facility] Blood Gas Inspired Oxygen 90 % Imaging Last 24 hours Impressions Chest X-Ray 08/31/17 0600 Signed Impressions: Service Date/Time: Thursday, August 31, 2017 02:57 - CONCLUSION: 1. Worsening airspace disease throughout the right lung. 2. Stable left perihilar consolidation with some developing left basilar atelectasis. Jaret Crouch MD Last Impressions CT Angiography 08/29/17 184 Signed Impressions: Service Date/Time: Tuesday, August 29, 2017 19:36 - CONCLUSION: 1. Multilobar consolidation. 2. No evidence for pulmonary embolism. 3. Extensive coronary calcifications Pk Bae MD Chest X-Ray 08/29/17 183 Signed Impressions: Service Date/Time: Tuesday, August 29, 2017 18:37 - CONCLUSION: 1. ET tube and NG tube in good position. 2. Mass like area versus consolidation seen in the left perihilar region. 3. Diffuse increased interstitial markings likely related to edema. Dmitri Echeverria MD Objective Remarks General - elderly gentleman, intubated and sedated propofol and fentanyl, chronically ill-appearing HEENT - pupils equal, reactive, sclerae anicteric, neck supple, no nuchal rigidity, neck veins not distended, no carotid bruit, orally intubated CV - regular S1, S2, no murmurs Chest - diffuse coarse breath sounds b/l, good air entry, no wheezes Abdomen - soft, appears non-tender, non-distended, BS present, no hepatomegaly, no splenomegaly Skin - no rashes, no cyanosis Extremities - warm and well perfused, no edema, + peripheral pulses, no clubbing Neuro - RASS -2. intubated and sedated, pupils are equal and reactive, grimaces to pain but does not follow commands A/P Problem List: (1) OBED (acute kidney injury) ICD Code: N17.9 - Acute kidney failure, unspecified (2) Severe protein-calorie malnutrition ICD Code: E43 - Unspecified severe protein-calorie malnutrition Status: Chronic (3) Shortness of breath ICD Code: R06.02 - Shortness of breath Status: Acute (4) Tobacco abuse ICD Code: Z72.0 - Tobacco use Status: Chronic (5) Paroxysmal A-fib ICD Code: I48.0 - Paroxysmal atrial fibrillation Status: Chronic (6) Atrial fibrillation with RVR ICD Code: I48.91 - Unspecified atrial fibrillation Status: Resolved (7) PNA (pneumonia) ICD Code: J18.9 - Pneumonia, unspecified organism (8) COPD (chronic obstructive pulmonary disease) ICD Code: J44.9 - Chronic obstructive pulmonary disease, unspecified (9) Lung cancer ICD Code: C34.90 - Malignant neoplasm of unspecified part of unspecified bronchus or lung (10) Debility ICD Code: R53.81 - Other malaise Status: Chronic (11) Pain ICD Code: R52 - Pain, unspecified Status: Chronic (12) Lung consolidation ICD Code: J18.1 - Lobar pneumonia, unspecified organism Status: Acute (13) Acute respiratory failure with hypoxia and hypercarbia ICD Code: J96.01 - Acute respiratory failure with hypoxia; J96.02 - Acute respiratory failure with hypercapnia Assessment and Plan 1. Acute hypoxic and hypercapnic respiratory failure -slowly improving 2. Possible pneumonia +/-radiation pneumonitis 3. Acute COPD exacerbation 4. Lung cancer currently undergoing radiation therapy and chemotherapy 5. Atrial fibrillation with rapid ventricular response -rate better controlled , remains in sinus rhythm 6. Gram-positive bacteremia -awaiting speciation to see if true pathogen versus contaminant 7. Acute blood loss anemia -hemoglobin improved post 2 units PRBC transfusion. Still no clear source of bleeding identified 8. Hypophosphatemia/Hypomagnesemia -improved 9. Hypothermia -resolved, thyroid functions are normal 10. OBED -with low urine output 1. Continue PRVC, vent settings readjusted, respiratory rate increased to 20, TI decreased to 0.9. Follow-up ABG 2. Vent bundle and bronchodilators but change albuterol to levalbuterol and continue ipratropium 3. Continue methylprednisolone 40mg every 8 4. Continue Vanco and Zosyn, ID consulted appreciate recommendations 5. Continue sedation with propofol and fentanyl but decrease it to a RASS of -1 6. Discontinue amiodarone infusion, initiate metoprolol 50 mg twice daily, and Cardizem 60 mg daily 6 patient's home medication 7. Follow-up blood cultures 8. Dietary consulted for tube feeds 9. If further hemoglobin drop or if any signs of GI bleed will ask for a GI evaluation 10. Glycemic control 11. Change GI prophylaxis to pantoprazole and mechanical DVT prophylaxis with SCDs. Hold heparin in the setting of hemoglobin drop 12. 08/31 started on sodium bicarbonate infusion for severe metabolic acidosis No family present at bedside. Follow-up palliative care team recommendations Patient remains very ill at high risk for further decompensation and . Level 3 follow up Problem Qualifiers (1) PNA (pneumonia): Qualified Codes: J18.1 - Lobar pneumonia, unspecified organism Elba Colon MD September 02, 2017 08:19
[2017-09-02] MEDS: BUDESONIDE-FORMOTEROL 160/4.5 MCG INHALER INH SCH ×2 (08:40→21:00)
--- NOTE | 2017-09-02 08:54 | HHI.CCPN ---
Subjective Remarks/Hospital Course 08/29: This is a 61-year-old male with a history of lung cancer undergoing current chemotherapy and radiation who was recently admitted on 07/19 for aspiration pneumonia. During that admission he did have episodes of paroxysmal atrial fibrillation and had an echo from 04/2017 showing an EF of 50-55%. He represents today to the emergency department with acute shortness of breath since last night. Per the ER documentation, he denies any coughing, fever, chills, or other recent symptoms or changes other than the new dyspnea. In the emergency department he was found to be in A. fib with RVR. This initially converted to sinus rhythm 1 after diltiazem 20 mg IV bolus, but then very quickly went back into atrial for ablation with rapid ventricular response. 2 doses of adenosine were not able to convert it. The patient was loaded with amiodarone and infusion was started. After this, the patient become acutely hypoxemic requiring emergent intubation. Please refer to the emergency room physician documentation for additional details regarding the decompensation. When I came to evaluate patient, the patient was recently intubated, sedated. No additional information is available from the patient due to his clinical condition. Review of systems is unobtainable. Critical care medicine is consulted to evaluate manage his acute hypoxic respiratory failure along with his acute supraventricular tachycardia. 08/30: Patient remains intubated and sedated. FiO2 down to 0.5. Patient continues to be on amiodarone infusion and heparin drip. Sedation achieved with propofol and fentanyl. Patient remains hypothermic requiring Gracia hugger, urine output 350 mL's documented since admission. 08/31: No events over the night. Patient remains intubated and sedated. Hemoglobin more stable posttransfusion. Hypothermia resolved, T-max of 100.3. Urine output remains low, 635 mL's over the last 24 hours. Oxygenation is improved. No family present at bedside. Patient remains in sinus rhythm, on amiodarone infusion. No report of melena, hematochezia or coffee-ground aspirate from NG tube. Morning chest x-ray reviewed, worsening infiltrates over the right thorax, unchanged consolidation over the left. 09/01: Afebrile. Patient was extubated yesterday afternoon and emergently intubated 1030 last night secondary to hypoxemic respiratory failure. This x- ray pending this a.m.. The patient also was noted to have severe metabolic acidosis and sodium bicarbonate infusion was initiated. Patient noted to have Pseudomonas, and placed on Zosyn. Patient continues to have leukocytosis with worsening pneumonia ID has been consulted appreciate recommendations. Patient previously DNR palliative has been consulted up on hypoxemic respiratory failure patient was noted to request intubation at that time. Palliative care consult pending. Patient continues on amiodarone infusion now in sinus rhythm. Amiodarone infusion discontinued the patient continued on metoprolol and Cardizem home medications. Hemoglobin appears stable status post 2 units transfusion 48 hours ago. Will do serial H&H's aspirin reinitiated will hold Plavix for now, and continue to follow. Subcu heparin initiated. 09/02: Afebrile. Hemoglobin stable for the last 24 hours. Plan to restart tube feeds this a.m.. Metabolic acidosis resolved, patient's sodium bicarbonate discontinued. Patient requiring increasing FiO2 requirements during the night , now at 100% ABG pending. This am chest x-ray worsening. Objective Vital Signs Date Time Temp Pulse Resp B/P (MAP) Pulse Ox O2 Delivery O2 Flow Rate FiO2 09/02/17 06:00 71 09/02/17 04:11 97 100 09/02/17 04:00 98.4 20 131/84 (100) 09/01/17 19:00 Mechanical Ventilator 08/31/17 16:15 15.00 Intake and Output 09/02/17 09/02/17 09/03/17 08:00 16:00 00:00 Intake Total 1220 ml 707 ml Output Total 450 ml Balance 770 ml 707 ml Result Diagram: 09/02/17 0606 09/02/17 06 Other Results Laboratory Tests Test 09/01/17 23:42 Blood Gas Puncture Site RT RADIAL Blood Gas Patient Temperature 98.6 Blood Gas HCO3 27 mmol/L (22-26) Blood Gas Base Excess 2.4 mmol/L (-2-2) Blood Gas Oxygen Saturation 90 % (90-100) Arterial Blood pH 7.42 (7.380-7.420) Arterial Blood Partial Pressure CO2 42 mmHg (38-42) Arterial Blood Partial Pressure O2 68 mmHg (61-120) Arterial Blood Oxygen Content 12.6 Vol % (12.0-20.0) Arterial Blood Carboxyhemoglobin 1.3 % (0-4) Arterial Blood Methemoglobin 1.3 % (0-2) Blood Gas Hemoglobin 9.9 G/DL (12.0-16.0) Oxygen Delivery Device VENTILATOR Blood Gas Ventilator Setting [facility]- Blood Gas Inspired Oxygen 90 % Imaging Last Impressions Chest X-Ray 09/02/17 0000 Signed Impressions: Service Date/Time: Saturday, September 02, 2017 06:32 - CONCLUSION: Bilateral airspace disease with interval worsening in the left base. Possible developing left-sided effusion. Jaret Crouch MD Abdomen X-Ray 08/31/17 0000 Signed Impressions: Service Date/Time: Thursday, August 31, 2017 20:34 - CONCLUSION: 1. Nasogastric tube tip in distal stomach. David Jay MD CT Angiography 08/29/171848 Signed Impressions: Service Date/Time: Tuesday, August 29, 2017 19:36 - CONCLUSION: 1. Multilobar consolidation. 2. No evidence for pulmonary embolism. 3. Extensive coronary calcifications Pk Bae MD Last 24 hours Impressions Chest X-Ray 08/31/17 0600 Signed Impressions: Service Date/Time: Thursday, August 31, 2017 02:57 - CONCLUSION: 1. Worsening airspace disease throughout the right lung. 2. Stable left perihilar consolidation with some developing left basilar atelectasis. Jaret Crouch MD Last Impressions CT Angiography 08/29/171848 Signed Impressions: Service Date/Time: Tuesday, August 29, 2017 19:36 - CONCLUSION: 1. Multilobar consolidation. 2. No evidence for pulmonary embolism. 3. Extensive coronary calcifications Pk Bae MD Chest X-Ray 08/29/17 1831 Signed Impressions: Service Date/Time: Tuesday, August 29, 2017 18:37 - CONCLUSION: 1. ET tube and NG tube in good position. 2. Mass like area versus consolidation seen in the left perihilar region. 3. Diffuse increased interstitial markings likely related to edema. Dmitri Echeverria MD Objective Remarks General - elderly gentleman, intubated and sedated propofol and fentanyl, chronically ill-appearing HEENT - pupils equal, reactive, sclerae anicteric, neck supple, no nuchal rigidity, neck veins not distended, no carotid bruit, orally intubated CV - regular S1, S2, no murmurs Chest - diffuse coarse breath sounds b/l, good air entry, no wheezes Abdomen - soft, appears non-tender, non-distended, BS present, no hepatomegaly, no splenomegaly Skin - no rashes, no cyanosis Extremities - warm and well perfused, no edema, + peripheral pulses, no clubbing Neuro - RASS -2. intubated and sedated, pupils are equal and reactive, grimaces to pain but does not follow commands A/P Problem List: (1) OBED (acute kidney injury) ICD Code: N17.9 - Acute kidney failure, unspecified (2) Severe protein-calorie malnutrition ICD Code: E43 - Unspecified severe protein-calorie malnutrition Status: Chronic (3) Shortness of breath ICD Code: R06.02 - Shortness of breath Status: Acute (4) Tobacco abuse ICD Code: Z72.0 - Tobacco use Status: Chronic (5) Paroxysmal A-fib ICD Code: I48.0 - Paroxysmal atrial fibrillation Status: Chronic (6) Atrial fibrillation with RVR ICD Code: I48.91 - Unspecified atrial fibrillation Status: Resolved (7) PNA (pneumonia) ICD Code: J18.9 - Pneumonia, unspecified organism (8) COPD (chronic obstructive pulmonary disease) ICD Code: J44.9 - Chronic obstructive pulmonary disease, unspecified (9) Lung cancer ICD Code: C34.90 - Malignant neoplasm of unspecified part of unspecified bronchus or lung (10) Debility ICD Code: R53.81 - Other malaise Status: Chronic (11) Pain ICD Code: R52 - Pain, unspecified Status: Chronic (12) Lung consolidation ICD Code: J18.1 - Lobar pneumonia, unspecified organism Status: Acute (13) Acute respiratory failure with hypoxia and hypercarbia ICD Code: J96.01 - Acute respiratory failure with hypoxia; J96.02 - Acute respiratory failure with hypercapnia Assessment and Plan Plan by systems: Neurologic: Hypothermia-resolved Sedation vacation when clinically appropriate- patient on high FiO2 requirements at this time, not indicated Tylenol 650 mg every 6 hours as needed for temp greater than 101.5 Continue propofol infusion to maintain ventilator synchrony Respiratory: Possible pneumonia +/-radiation pneumonitis Lung cancer undergoing concurrent radiation therapy and chemotherapy Acute COPD exacerbation Acute hypoxemic and hypercapnic respiratory failure Maintain O2 sat greater than 92% 5/2 chest [id number] Ventilator bundle No CPAP trials until clinically indicated patient currently has high FiO2 requirement Duo nebs every 6 hours scheduled and every 2 hours as needed-Xopenex, and ipratropium Methylprednisolone 40 mg every 8 hours Cardiovascular: A. fib RVR-resolved Maintain MAP greater than 65 09/01-amiodarone infusion discontinued 09/01 Resumed patient's Cardizem 60 mg every 6 hours and bisoprolol 50 mg twice daily 09/01 Lovastatin 10 mg daily, aspirin 81 mg continued Renal: AK I -- Strict I/Os FEN/GI: Electrolyte abnormality Severe metabolic acidosis-resolved Resume home med Lasix 20 mg/day Sodium bicarbonate infusion discontinued Dietary consult initiated -begin tube feeds 09/02 Bowel regimen-no bowel movement since admission to hospital Lactulose 30 mL daily Zofran for nausea Protonix for GI prophylaxis Heme/ID: Gram-positive bacteremia Acute blood loss anemia-resolved 08/31 Heparin infusion discontinued 09/01 no active signs of bleeding, hematuria resolved, subcu heparin initiated ID following-antibiotics per ID recommendation level Levaquin and vancomycin Sputum- Pseudomonas Blood- MSSA (contaminant?) Endocrine: Glucose monitoring per ICU protocol -- SSI Prophylaxis: GI Prophylaxis Protonix DVT Prophylaxis -- SCDs Heparin SQ BID Lines: Peripheral IVs x 2. Central line if indicated. Dispo: my billing statement This patient remains critically ill with one or more organ systems which are or may become a threat to life. I have spent in excess of 35 minutes discontinuously in the care and management of this patient. This time is exclusive of procedures, and includes, but is not limited to, evaluation of the patient, review of the medical record, discussions with family, consultants, nursing staff, or respiratory therapy, and documentation in the medical record. Follow-up palliative care team recommendations-patient remains a full code at this time. Discussed with Ms. Tenorio, palliative care retail sales teammate Patient remains very ill at high risk for further decompensation and . Physician Elba Colon Problem Qualifiers (1) PNA (pneumonia): Qualified Codes: J18.1 - Lobar pneumonia, unspecified organism Elba Colon MD September 02, 2017 08:54
[2017-09-02] MEDS: METOPROLOL TARTRATE 50 MG TAB PO SCH ×2 (08:57→22:06)
[2017-09-02] MEDS: ASPIRIN 81 MG CHEW TAB CHEW SCH (08:57)
[2017-09-02] MEDS: DOCUSATE SODIUM 50 MG/SENNA 8.6 MG TAB PO SCH ×2 (08:57→21:00)
[2017-09-02] MEDS: PRAVASTATIN SOD 10 MG TAB PO SCH (08:57)
[2017-09-02] MEDS: HEPARIN SODIUM - SQ 10,000 UNITS/ML VIAL SQ SCH ×2 (08:58→22:06)
[2017-09-02] MEDS ORDERED: DOCUSATE SODIUM 50 MG/SENNA 8.6 MG TAB PO SCH (09:00)
[2017-09-02] MEDS: LACTULOSE SYRUP 20 GM/30 ML CUP PO SCH (09:00)
[2017-09-02] MEDS: PROPOFOL 1000 MG/100 ML INJ 100 ML IV PRN ×3 (10:49→22:03)
[2017-09-02] MEDS: PANTOPRAZOLE SODIUM 40 MG VIAL IV PUSH SCH (12:20)
--- NOTE | 2017-09-02 13:03 | HHI.IDPN ---
Note Infectious Disease Note Patient is on the ventilator. He is on 80% FiO2. He was noted to have increased O2 requirements yesterday evening. He is sedated. He was noted to become agitated when sedation is lifted. He is afebrile. Chest x-ray shows worsening bilateral airspace disease. Presented to the emergency department on 08/29 with respiratory symptoms. Intubated in the ED. PAST MEDICAL HISTORY: Left lung cancer, being treated with chemotherapy and radiation, coronary artery disease, peripheral arterial disease, COPD, hypertension, anxiety, depression, bilateral cataract surgery, recent pneumonia due to Pseudomonas in 04/2017 and 07/2017, history of iliac artery bypass surgery. ALLERGIES: NO KNOWN DRUG ALLERGIES. Current Medications Medications (Trade) Dose Ordered Sig/[place] Route PRN Reason Start Time Stop Time Status Last Admin Dose Admin Sodium Chloride (NS Flush) 2 ml UNSCH PRN IVF FLUSH AFTER USING IV ACCESS 08/29/17 18:00 Potassium Chloride 100 ml @ 50 mls/hr Q2H PRN IV For Potassium 2.8 - 3.2 mEq/L 08/29/17 18:45 Potassium Chloride 100 ml @ 50 mls/hr Q2H PRN IV For Potassium 2.8 - 3.2 mEq/L 08/29/17 18:45 Potassium Bicarb/ Potassium Chloride (K-Lyte Cl Eff) 50 meq UNSCH PRN PO For Potassium 3.3 - 3.5 mEq/L 08/29/17 18:45 Potassium Chloride 100 ml @ 25 mls/hr UNSCH PRN IV For Potassium 3.3 - 3.5 mEq/L 08/29/17 18:45 Potassium Chloride 100 ml @ 50 mls/hr Q2H PRN IV For Potassium 3.3 - 3.5 mEq/L 08/29/17 18:45 Magnesium Sulfate 4 gm/Sodium Chloride 100 ml @ 50 mls/hr UNSCH PRN IV For Magnesium 0.9 - 1.1 mg/dL 08/29/17 18:45 Magnesium Oxide (Mag-Ox) 800 mg UNSCH PRN PO For Magnesium 1.2 - 1.6 mg/dL 08/29/17 18:45 Magnesium Sulfate 2 gm/Sodium Chloride 100 ml @ 50 mls/hr UNSCH PRN IV For Magnesium 1.2 - 1.6 mg/dL 08/29/17 18:45 Potassium Phosphate (K-Phos) 2,000 mg Q4H PRN PO For Phosphorus < 2.5 mg/dL 08/29/17 18:45 Sodium Phosphate 30 mmol/Sodium Chloride 250 ml @ 42 mls/hr UNSCH PRN IV For Phosphorus < 2.5 mg/dL 08/29/17 18:45 Potassium Phosphate (K-Phos) 2,000 mg UNSCH PRN PO/TUBE SEE LABEL COMMENTS 08/29/17 18:45 Potassium Phosphate 30 mmol/ Sodium Chloride 260 ml @ 42 mls/hr UNSCH PRN IV SEE LABEL COMMENTS 08/29/17 18:45 Chlorhexidine Gluconate (Peridex 0.12% Liq) 15 ml BID@08,20 MT 08/29/17 20:00 09/02/17 08:00 Dextrose (D50w (Vial) Inj) 25 ml UNSCH PRN IV PUSH HYPOGLYCEMIA-SEE COMMENTS 08/29/17 18:45 Insulin Human Regular (NovoLIN R SUPPLEMENTAL SCALE) 1 Q6HR SQ 08/30/17 00:00 09/01/17 11:35 Albuterol/ Ipratropium (Duoneb Neb) 1 ampule Q2HR NEB PRN INH WHEEZING 08/29/17 18:45 Piperacillin Sod/ Tazobactam Sod 100 ml @ 200 mls/hr Q6H IV 08/29/17 20:00 09/02/17 08:57 Ondansetron HCl (Zofran Inj) 4 mg Q6H PRN IV PUSH NAUSEA OR VOMITING 08/29/17 18:45 08/31/17 19:59 Miscellaneous Information ([facility]) 1 Q361D XX 08/29/17 18:45 08/29/17 18:45 Chlorhexidine Gluconate (Chlorhexidine 2% Cloth) 3 pack Taper DAILY@04 TOP 08/30/17 04:00 08/26/18 03:59 09/02/17 04:00 Chlorhexidine Gluconate (Chlorhexidine 2% Cloth) 3 pack UNSCH PRN TOP HYGIENIC CARE 08/29/17 18:45 Senna/Docusate Sodium (Nata-Colace) 1 tab BID PO 08/29/17 21:00 09/02/17 08:57 Magnesium Hydroxide (Milk Of Magnesia Liq) 30 ml Q12H PRN PO Mild constipation 08/29/17 18:45 Sodium Chloride (NS Flush) 2 ml UNSCH PRN IVF FLUSH AFTER USING IV ACCESS 08/29/17 19:30 Ipratropium [place] (Atrovent Neb) 0.5 mg Q6HR NEB NEB 08/30/17 10:00 09/02/17 08:41 Levalbuterol HCl (Xopenex Neb) 1.25 mg Q6HR NEB NEB 08/30/17 10:00 09/02/17 04:10 Pantoprazole Sodium (Protonix Inj) 40 mg Q24H IV PUSH 08/31/17 12:00 09/02/17 12:20 Methylprednisolone Sodium Succinate (SoluMEDROL INJ) 40 mg Q8HR IV PUSH 08/31/17 14:00 09/02/17 04:43 Chlorhexidine Gluconate (Peridex 0.12% Liq) 15 ml BID@08,20 MT 09/01/17 08:00 Propofol 100 ml @ 1.65 mls/hr TITRATE PRN IV SEDATION 08/31/17 22:30 09/02/17 10:49 Pravastatin Sodium (Pravachol) 10 mg DAILY PO 09/01/17 09:00 09/02/17 08:57 Metoprolol Tartrate (Lopressor) 50 mg Q12HR PO 09/01/17 09:00 09/02/17 08:57 Budesonide/ Formoterol Fumarate (Symbicort 160-4.5 Mcg Inh) 1 puff Q12HR INH 09/01/17 09:00 09/02/17 08:40 Aspirin (Aspirin Chew) 81 mg DAILY CHEW 09/01/17 09:00 09/02/17 08:57 Diltiazem HCl (Cardizem) 60 mg Q6H PO 09/01/17 09:00 09/02/17 08:57 Heparin Sodium (Porcine) (Heparin Inj) 5,000 units Q12HR SQ 09/01/17 09:00 09/02/17 08:58 Levofloxacin/ Dextrose 50 ml @ 50 mls/hr Q48H IV 09/01/17 13:00 09/01/17 13:16 Sennosides (Senokot) 17.2 mg Q12H PRN PO Moderate constipation 09/02/17 08:15 Bisacodyl (Dulcolax Supp) 10 mg DAILY PRN RECTAL SEVERE CONSITIPATION 09/02/17 08:15 Lactulose (Lactulose Liq) 30 ml DAILY PRN PO SEVERE CONSITIPATION 09/02/17 08:15 Lactulose (Lactulose Liq) 30 ml DAILY PO 09/02/17 09:00 09/02/17 09:00 SOCIAL HISTORY: No alcohol. Positive tobacco. No illicit drugs. OBJECTIVE: Vital Signs Date Time Temp Pulse Resp B/P (MAP) Pulse Ox O2 Delivery O2 Flow Rate FiO2 09/02/17 12:00 80 09/02/17 12:00 63 09/02/17 12:00 98.1 63 20 130/79 (96) 99 09/02/17 10:00 73 09/02/17 08:43 97 80 09/02/17 08:00 98.0 70 15 131/88 (102) 100 09/02/17 08:00 80 09/02/17 08:00 70 09/02/17 07:00 91 Mechanical Ventilator 80 09/02/17 06:00 71 09/02/17 04:11 97 100 09/02/17 04:00 98.4 70 20 131/84 (100) 99 09/02/17 04:00 100 09/02/17 04:00 70 09/02/17 02:00 70 09/02/17 01:00 100 09/02/17 00:35 97 100 09/02/17 00:00 79 09/02/17 00:00 90 09/02/17 00:00 98.8 79 19 122/84 (97) 92 09/01/17 22:00 91 09/01/17 21:06 96 60 09/01/17 21:00 70 09/01/17 20:00 98.6 75 14 118/80 (93) 96 09/01/17 20:00 75 09/01/17 20:00 60 09/01/17 19:00 95 Mechanical Ventilator 60 09/01/17 18:00 85 09/01/17 16:49 94 60 09/01/17 16:00 99.0 74 20 104/72 (83) 94 09/01/17 16:00 74 09/01/17 16:00 98.1 74 20 104/72 (83) 94 09/01/17 16:00 60 09/01/17 14:00 76 09/01/17 13:24 96 60 Laboratory Tests Test 09/01/17 23:37 09/01/17 23:42 09/02/17 06:06 09/02/17 10:24 Hemoglobin 9.9 GM/DL 10.2 GM/DL Hematocrit 29.5 % 30.7 % Blood Gas Puncture Site RT RADIAL RT RADIAL Blood Gas Patient Temperature 98.6 98.6 Blood Gas HCO3 27 mmol/L 29 mmol/L Blood Gas Base Excess 2.4 mmol/L 4.6 mmol/L Blood Gas Oxygen Saturation 90 % 87 % Arterial Blood pH 7.42 7.41 Arterial Blood Partial Pressure CO2 42 mmHg 47 mmHg Arterial Blood Partial Pressure O2 68 mmHg 62 mmHg Arterial Blood Oxygen Content 12.6 Vol % 12.2 Vol % Arterial Blood Carboxyhemoglobin 1.3 % 1.2 % Arterial Blood Methemoglobin 1.3 % 1.2 % Blood Gas Hemoglobin 9.9 G/DL 10.0 G/DL Oxygen Delivery Device VENTILATOR VENTILATOR Blood Gas Ventilator Setting PRVC-AC Blood Gas Inspired Oxygen 90 % 80 % White Blood Count 11.8 TH/MM3 Red Blood Count 3.47 MIL/MM3 Mean Corpuscular Volume 88.6 FL Mean Corpuscular Hemoglobin 29.5 PG Mean Corpuscular Hemoglobin Concent 33.2 % Red Cell Distribution Width 19.3 % Platelet Count 209 TH/MM3 Mean Platelet Volume 7.6 FL Blood Urea Nitrogen 23 MG/DL Creatinine 1.31 MG/DL Random Glucose 178 MG/DL Calcium Level 7.5 MG/DL Phosphorus Level 3.6 MG/DL Magnesium Level 2.1 MG/DL Sodium Level 138 MEQ/L Potassium Level 3.5 MEQ/L Chloride Level 101 MEQ/L Carbon Dioxide Level 28.2 MEQ/L Anion Gap 9 MEQ/L Estimat Glomerular Filtration Rate 55 ML/MIN IMAGING: Chest X-Ray 09/02/17 0000 Signed Impressions: Service Date/Time: Saturday, September 02, 2017 06:32 - CONCLUSION: Bilateral airspace disease with interval worsening in the left base. Possible developing left-sided effusion. Jaret Crouch MD Abdomen X-Ray 08/31/17 0000 Signed Impressions: Service Date/Time: Thursday, August 31, 2017 20:34 - CONCLUSION: 1. Nasogastric tube tip in distal stomach. David Jay MD CT Angiography 08/29/17 [id number] Signed Impressions: Service Date/Time: Tuesday, August 29, 2017 19:36 - CONCLUSION: 1. Multilobar consolidation. 2. No evidence for pulmonary embolism. 3. Extensive coronary calcifications Pk Bae MD PHYSICAL EXAMINATION: GENERAL: On the ventilator. Sedated. HEENT: Difficult to assess since the patient is sedated. Oropharynx intubated. NECK: No swelling. No adenopathy. LUNGS: Bilateral coarse breath sounds. HEART: Regular rate and rhythm. Slight systolic murmur at the left sternal border. ABDOMEN: Soft, nontender. EXTREMITIES: Ecchymosis at the right upper extremity. Trace edema at the upper extremities. No clubbing or cyanosis. SKIN: No diffuse rash. The skin is warm and moist. NEUROLOGIC: Unable to assess. PSYCHIATRIC: Unable to assess. IMPRESSION: 1. Bilateral pneumonia due to Pseudomonas. 2. Acute respiratory failure. Increased O2 requirement. 3. History of lung cancer. 4. One positive blood culture from 08/29 showing Staphylococcus species coagulase negative. Very likely contamination. RECOMMENDATIONS: 1. Continue piperacillin/tazobactam. 2. Continue Levaquin, adjusted for renal function. 3. Monitor renal function. 4. Continue to monitor temperature and white blood cell count. 5. Monitor clinical status. Herve Zarate MD September 02, 2017 13:03
[2017-09-02 13:07] LABS: HEMATOCRIT 30.8 % (39.0-51.0); HEMOGLOBIN 10.2 GM/DL (13.0-17.0)
--- NOTE | 2017-09-02 16:46 | HHI.HCPN ---
Reason for visit a. To assist with evaluation and management of symptoms including: Shortness of breath, pain, debility b. To assist medical decision maker(s) with: better understanding of current medical conditions; weighing benefits/burdens of medical treatment options; making medical treatment decisions. Subjective/Interval History Follow up medically necessary for symptom management and further clarification of goals of care. Patient seen and examined in his room on [facility]. Patient remains intubated, sedated on mechanical ventilation. Patient required increasing FiO2 to 100% overnight and has been weaned down to FIO2 50% this afternoon. PEEP has been increased from +5 to +8. O2 saturation in the mid to high 90s. No CPAP trials, patient currently not showing clinical improvement. Chest x-ray today revealing bilateral airspace disease with interval worsening in the left base and possible developing left-sided effusion. ABG today revealed pH 7.41, PCO2 47, PCO2 62, HCO3 29, base excess 4.6 on FiO2 80%. Sodium bicarbonate discontinued. Laboratory workup revealing WBC 11.8, hemoglobin 10.2, hematocrit 30.7, platelet count 209, potassium 3.5, BUN/ creatinine 23/1.31, random glucose 178, calcium 7.5. Telephone conversation with patient's healthcare surrogate Dahiana Mayorga. Updated on patient's current medical status including need for increased FiO2 overnight and worsening chest x-ray. Patient`s cousin asking why patient is not improving. Explained to her that patient has multiple ongoing comorbidities inclusive of lung cancer, COPD and currently has bilateral pneumonia due to Pseudomonas which complicates his situation. Goals remain aggressive. Telephone call received from patient`s other cousin Stephanie Rodas with patient` pin number- requested an update on patient`s medical status. Appreciative of update, stated that she will speak to Dahiana ([facility]) and discuss more regarding patient`s code status. Case discussed with Dr. Colon and bedside RN Deysi. Family/friend interactions Telephone conversation with patient's cousin Dahiana who is also his healthcare surrogate . Advance Directives Health Care Surrogate: Copy in medical record Advance Directive Specifics Date completed: [facility] -April 08, 2017 . Health Care Surrogate(s): [facility]- (Long time friend-15 yrs) Kay Rizvi [phone]- (July 2017) Alternate [facility]- CousinBrooklynn Mayorga [phone] (will serve as HCS) . Objective Vital Signs Date Time Temp Pulse Resp B/P (MAP) Pulse Ox O2 Delivery O2 Flow Rate FiO2 09/02/17 15:47 94 50 09/02/17 14:00 63 09/02/17 12:53 100 60 09/02/17 12:00 80 09/02/17 12:00 63 09/02/17 12:00 98.1 63 20 130/79 (96) 99 09/02/17 10:00 73 09/02/17 08:43 97 80 09/02/17 08:00 98.0 70 15 131/88 (102) 100 09/02/17 08:00 80 09/02/17 08:00 70 09/02/17 07:00 91 Mechanical Ventilator 80 09/02/17 06:00 71 09/02/17 04:11 97 100 09/02/17 04:00 98.4 70 20 131/84 (100) 99 09/02/17 04:00 100 09/02/17 04:00 70 09/02/17 02:00 70 09/02/17 01:00 100 09/02/17 00:35 97 100 09/02/17 00:00 79 09/02/17 00:00 90 09/02/17 00:00 98.8 79 19 122/84 (97) 92 09/01/17 22:00 91 09/01/17 21:06 96 60 09/01/17 21:00 70 09/01/17 20:00 98.6 75 14 118/80 (93) 96 09/01/17 20:00 75 09/01/17 20:00 60 09/01/17 19:00 95 Mechanical Ventilator 60 09/01/17 18:00 85 09/01/17 16:49 94 60 Intake & Output 09/02/17 09/02/17 07:00 19:00 Intake Total 1420 ml 807 ml Output Total 450 ml Balance 970 ml 807 ml Intake IV Total 1300 ml 807 ml Tube Irrigant 120 ml Output Urine Total 400 ml Gastric Drainage Total 50 ml # Bowel Movements 0 Physical Exam CONSTITUTIONAL/GENERAL: This is a chronically ill patient, intubated, sedated. TUBES/LINES/DRAINS: ETT, NGT, PIV, Dockery catheter, bilateral upper extremity soft restraints SKIN: No jaundice, rashes, or lesions. Ecchymoses on upper extremities. No wounds seen anteriorly. Not diaphoretic. HEAD: Atraumatic. Normocephalic. EYES: Pupils 2 mm, questionable reaction.No scleral icterus. No injection or drainage. Fundi not examined. ENT: Unable to assess Hearing. Nose without bleeding or purulent drainage. Moist oral mucosa NECK: Trachea midline. Supple, nontender. CARDIOVASCULAR: S1-S2 normal, no murmurs, no JVD. peripheral pulses symmetric. RESPIRATORY/CHEST: Symmetric, unlabored respirations. Diminished in the bases. No wheezes, rales, or rhonchi. GASTROINTESTINAL: Abdomen soft, non-tender, nondistended. Bowel sounds present. NG tube clamped GENITOURINARY: Without palpable bladder distension. Dockery catheter in place. MUSCULOSKELETAL: Extremities without clubbing, cyanosis. Edema to bilateral upper extremities. No mottling or clubbing. NEUROLOGICAL: Intubated, sedated on mechanical ventilation. PSYCHIATRIC: Unable to assess at this time. . Diagnostic Tests Laboratory Laboratory Tests Test 08/30/17 22:51 08/31/17 05:19 08/31/17 06:25 08/31/17 09:26 Hemoglobin 9.9 GM/DL (13.0-17.0) 10.5 GM/DL (13.0-17.0) Hematocrit 30.1 % (39.0-51.0) 31.8 % (39.0-51.0) Blood Gas Puncture Site RT RADIAL LT RADIAL Blood Gas Patient Temperature 98.6 98.6 Blood Gas HCO3 18 mmol/L (22-26) 16 mmol/L (22-26) Blood Gas Base Excess -8.8 mmol/L (-2-2) -8.6 mmol/L (-2-2) Blood Gas Oxygen Saturation 92 % (90-100) 96 % (90-100) Arterial Blood pH 7.20 (7.380-7.420) 7.33 (7.380-7.420) Arterial Blood Partial Pressure CO2 48 mmHg (38-42) 31 mmHg (38-42) Arterial Blood Partial Pressure O2 86 mmHg (61-120) 134 mmHg (61-120) Arterial Blood Oxygen Content 13.8 Vol % (12.0-20.0) 13.7 Vol % (12.0-20.0) Arterial Blood Carboxyhemoglobin 1.4 % (0-4) 1.4 % (0-4) Arterial Blood Methemoglobin 1.5 % (0-2) 1.4 % (0-2) Blood Gas Hemoglobin 10.7 G/DL (12.0-16.0) 10.0 G/DL (12.0-16.0) Oxygen Delivery Device VENTILATOR VENTILATOR Blood Gas Ventilator Setting PRVC/AC Blood Gas Inspired Oxygen 60 % 60 % White Blood Count 12.4 TH/MM3 (4.0-11.0) Red Blood Count 3.55 MIL/MM3 (4.50-5.90) Mean Corpuscular Volume 89.4 FL (80.0-100.0) Mean Corpuscular Hemoglobin 29.7 PG (27.0-34.0) Mean Corpuscular Hemoglobin Concent 33.2 % (32.0-36.0) Red Cell Distribution Width 19.7 % (11.6-17.2) Platelet Count 220 TH/MM3 (150-450) Mean Platelet Volume 7.3 FL (7.0-11.0) Prothrombin Time 11.7 SEC (9.8-11.6) Prothromb Time International Ratio 1.2 RATIO Activated Partial Thromboplast Time 34.2 SEC (24.3-30.1) Blood Urea Nitrogen 11 MG/DL (7-18) Creatinine 1.04 MG/DL (0.60-1.30) Random Glucose 100 MG/DL (74-106) Calcium Level 7.6 MG/DL (8.5-10.1) Sodium Level 139 MEQ/L (136-145) Potassium Level 4.2 MEQ/L (3.5-5.1) Chloride Level 111 MEQ/L (98-107) Carbon Dioxide Level 19.8 MEQ/L (21.0-32.0) Anion Gap 8 MEQ/L (5-15) Estimat Glomerular Filtration Rate 72 ML/MIN (>89) Test 08/31/17 20:06 09/01/17 05:05 09/01/17 09:45 09/01/17 12:27 Blood Gas Puncture Site RT RADIAL Blood Gas Patient Temperature 98.6 Blood Gas HCO3 15 mmol/L (22-26) Blood Gas Base Excess -11.6 mmol/L (-2-2) Blood Gas Oxygen Saturation 93 % (90-100) Arterial Blood pH 7.18 (7.380-7.420) Arterial Blood Partial Pressure CO2 43 mmHg (38-42) Arterial Blood Partial Pressure O2 101 mmHg (61-120) Arterial Blood Oxygen Content 15.7 Vol % (12.0-20.0) Arterial Blood Carboxyhemoglobin 0.9 % (0-4) Arterial Blood Methemoglobin 1.4 % (0-2) Blood Gas Hemoglobin 11.9 G/DL (12.0-16.0) Oxygen Delivery Device BIPAP Blood Gas Ventilator Setting 10 IPAP/5 EPAP Blood Gas Inspired Oxygen 80 % White Blood Count 11.5 TH/MM3 (4.0-11.0) Red Blood Count 3.86 MIL/MM3 (4.50-5.90) Hemoglobin 11.1 GM/DL (13.0-17.0) 10.4 GM/DL (13.0-17.0) Hematocrit 34.6 % (39.0-51.0) 31.1 % (39.0-51.0) Mean Corpuscular Volume 89.6 FL (80.0-100.0) Mean Corpuscular Hemoglobin 28.8 PG (27.0-34.0) Mean Corpuscular Hemoglobin Concent 32.1 % (32.0-36.0) Red Cell Distribution Width 19.9 % (11.6-17.2) Platelet Count 235 TH/MM3 (150-450) Mean Platelet Volume 7.6 FL (7.0-11.0) Blood Urea Nitrogen 18 MG/DL (7-18) Creatinine 1.33 MG/DL (0.60-1.30) Random Glucose 157 MG/DL (74-106) Calcium Level 7.9 MG/DL (8.5-10.1) Sodium Level 141 MEQ/L (136-145) Potassium Level 4.2 MEQ/L (3.5-5.1) Chloride Level 111 MEQ/L (98-107) Carbon Dioxide Level 17.3 MEQ/L (21.0-32.0) Anion Gap 13 MEQ/L (5-15) Estimat Glomerular Filtration Rate 54 ML/MIN (>89) Vancomycin Level Trough 32.2 MCG/ML (5.0-10.0) Test 09/01/17 23:37 09/01/17 23:42 09/02/17 06:06 09/02/17 10:24 Hemoglobin 9.9 GM/DL (13.0-17.0) 10.2 GM/DL (13.0-17.0) Hematocrit 29.5 % (39.0-51.0) 30.7 % (39.0-51.0) Blood Gas Puncture Site RT RADIAL RT RADIAL Blood Gas Patient Temperature 98.6 98.6 Blood Gas HCO3 27 mmol/L (22-26) 29 mmol/L (22-26) Blood Gas Base Excess 2.4 mmol/L (-2-2) 4.6 mmol/L (-2-2) Blood Gas Oxygen Saturation 90 % (90-100) 87 % (90-100) Arterial Blood pH 7.42 (7.380-7.420) 7.41 (7.380-7.420) Arterial Blood Partial Pressure CO2 42 mmHg (38-42) 47 mmHg (38-42) Arterial Blood Partial Pressure O2 68 mmHg (61-120) 62 mmHg (61-120) Arterial Blood Oxygen Content 12.6 Vol % (12.0-20.0) 12.2 Vol % (12.0-20.0) Arterial Blood Carboxyhemoglobin 1.3 % (0-4) 1.2 % (0-4) Arterial Blood Methemoglobin 1.3 % (0-2) 1.2 % (0-2) Blood Gas Hemoglobin 9.9 G/DL (12.0-16.0) 10.0 G/DL (12.0-16.0) Oxygen Delivery Device VENTILATOR VENTILATOR Blood Gas Ventilator Setting [facility] Blood Gas Inspired Oxygen 90 % 80 % White Blood Count 11.8 TH/MM3 (4.0-11.0) Red Blood Count 3.47 MIL/MM3 (4.50-5.90) Mean Corpuscular Volume 88.6 FL (80.0-100.0) Mean Corpuscular Hemoglobin 29.5 PG (27.0-34.0) Mean Corpuscular Hemoglobin Concent 33.2 % (32.0-36.0) Red Cell Distribution Width 19.3 % (11.6-17.2) Platelet Count 209 TH/MM3 (150-450) Mean Platelet Volume 7.6 FL (7.0-11.0) Blood Urea Nitrogen 23 MG/DL (7-18) Creatinine 1.31 MG/DL (0.60-1.30) Random Glucose 178 MG/DL (74-106) Calcium Level 7.5 MG/DL (8.5-10.1) Phosphorus Level 3.6 MG/DL (2.5-4.9) Magnesium Level 2.1 MG/DL (1.5-2.5) Sodium Level 138 MEQ/L (136-145) Potassium Level 3.5 MEQ/L (3.5-5.1) Chloride Level 101 MEQ/L (98-107) Carbon Dioxide Level 28.2 MEQ/L (21.0-32.0) Anion Gap 9 MEQ/L (5-15) Estimat Glomerular Filtration Rate 55 ML/MIN (>89) Test 09/02/17 12:45 Hemoglobin 10.2 GM/DL (13.0-17.0) Hematocrit 30.8 % (39.0-51.0) Result Diagram: 09/02/17 1245 09/02/17 0606 Imaging Last 24 hours Impressions Chest X-Ray 09/02/17 0000 Signed Impressions: Service Date/Time: Saturday, September 02, 2017 06:32 - CONCLUSION: Bilateral airspace disease with interval worsening in the left base. Possible developing left-sided effusion. Jaret Crouch MD Procedures 08/29/17-intubation 08/31/17-self extubation 08/31/17-reintubated . Assessment and Plan Disease Oriented Problem List: (1) Acute respiratory failure with hypoxia and hypercarbia (2) Lung cancer (3) Atrial fibrillation with RVR (4) Lung consolidation (5) COPD (chronic obstructive pulmonary disease) Symptom Scale: (1) Shortness of breath Comment: Hx of lung cancer. CT angiography revealed multilobar consolidation and no evidence for pulmonary embolism, extensive coronary calcifications. . (2) Pain Comment: Risk for pain-from procedure (intubation), bedbound status. . (3) Debility 0-10 Scale: Unable to quantify Comment: Progressive . Pertinent Non-Medical Issues Psychosocial:Patient was born and raised in [place]. He left [place] at the age of 20. Patient moved to [place] in 1975. Patient has a 2 years college degree in [employer] technology. 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 Patient was and twice. He never had children. Spiritual:N yazidi affiliation Legal:Patient has a [facility] form signed and completed a Community DNR Ethical issues impacting care:None identified at this time . Important Contacts Alternate [facility]- Cousin- Dahiana Mayorga [phone] Cousin- Stephanie Rodas- Friend-Nemo [phone] [facility]- (Long time friend-15 yrs) Kay Rizvi [phone]- . Prognosis Mr Adams is a 61 years old male with a past medical history significant of lung cancer s/p radiation, COPD, hypertension, coronary artery disease and tobacco use. Patient presented to the ER via EMS on 08/29/17 complaining of shortness of breath that had started the night before, generalized malaise and weakness. Clinical course complicated with atrial fibrillation with RVR, and acute hypoxic and hypercapnic respiratory failure. Given ongoing comorbidities , patient remains at high risk for further complications, deterioration and decline. . Code Status: Full Code Plan PLAN: Legal decision maker: Patient is currently intubated, sedated on mechanical ventilation and is not able to participate in decision-making. Patient`s cousin Dahiana Mayorga whom he has designated as his alternate healthcare surrogate will make medical decisions for patient. Goals: Aggressive CODE STATUS: Full code Telephone conversation with patient's healthcare surrogate Dahiana Mayorga. Updated on patient's current medical status including need for increased FiO2 overnight and worsening chest x-ray. Patient`s cousin asking why patient is not improving. Explained to her that patient has multiple ongoing comorbidities inclusive of lung cancer, COPD and currently has bilateral pneumonia due to Pseudomonas which complicates his situation. Goals remain aggressive. SYMPTOMS: * Shortness of breath: Patient has history of lung cancer, COPD and tobacco use. Patient presented with shortness of breath. Intubated 08/29, self extubated 08/31, reintubated 08/31 secondary to respiratory failure. Patient chest X-ray showing persistent 7 cm masslike area in the left hilum and diffuse interstitial disease with suspected subpulmonic left pleural effusion. Worsening chest x-ray today. Solu-Medrol and duo nebs prn.Patient required increase of FiO2 100% overnight. Currently on FiO2 50%. No recommendations at this time. * Pain: Patient is at risk for pain, required intubation in the ER. Currently bedbound. Fentanyl infusion discontinued. no signs of pain, discomfort noted. No recommendations at this time. * Debility: Progressive: Hx of lung cancer s/p radiation. Multiple hospitalizations. Patient may benefit from PT consultation if goals remain aggressive. . Palliative care will continue to follow the patient during hospital course as condition evolves, to assist patient/decision-maker with understanding of their medical conditions, weighing benefits/burdens of treatment options, for clarification of goals of treatment. Additionally will assist with any symptoms of palliative concern Attestation To help prompt me to consider important information that might be impacting today's encounter and assessment, information from prior notes written by myself or my colleagues may have been "brought forward" into today's note. My signature on this note, however, is an attestation that I personally performed the exam, history, and/or decision-making noted today, and, unless otherwise indicated, the interactions with patient, family, and staff as well as the review of records all occurred today. I also attest that the listed assessment and stated plan reflect my best clinical judgment today based on the combination of historical information, prior notes, and today's exam/ interactions. When time spent is documented, it refers only to time spent today by the signer, or if indicated, combined time spent today by collaborating physician/nurse practitioner. Randa Tenorio September 02, 2017 16:45
[2017-09-02] MEDS: fentaNYL DRIP 250 ML IV PRN (17:51)
[2017-09-03] VITALS (22 sets, daily range): BP systolic 129–163; BP diastolic 78–106; PULSE 48–87; RESP 13–20; TEMP 97.4–98.1; O2SAT 94–100
[2017-09-03] MEDS: DILTIAZEM HCL 60 MG TAB PO SCH ×4 (03:25→20:15)
[2017-09-03] MEDS: PIPERACIL-TAZO 4.5 GM PREMIX 100 ML IV SCH ×4 (03:25→20:15)
[2017-09-03] MEDS: RESP: LEVALBUTEROL HYDROCHLORIDE 1.25 MG/3 ML NEB (SCH) NEB ×2 (03:28→07:46)
[2017-09-03] MEDS: RESP: IPRATROPIUM 0.5 MG/2.5 ML NEB NEB SCH ×4 (03:28→20:54)
[2017-09-03] MEDS: CHLORHEXIDINE GLUCONATE 2 % 1 PACK (2 CLOTHS) TOP SCH (04:00)
[2017-09-03] MEDS: methylPREDNISolone SOD SUCC 40 MG/1 ML VIAL IV PUSH SCH ×3 (05:39→21:52)
[2017-09-03] MEDS: PROPOFOL 1000 MG/100 ML INJ 100 ML IV PRN ×3 (05:50→21:30)
[2017-09-03] MEDS: INSULIN NovoLIN REGULAR SUPPLEMENTAL SCALE SQ SCH ×5 (06:00→23:14)
[2017-09-03 07:09] LABS: HEMATOCRIT 32.2 % (39.0-51.0); HEMOGLOBIN 10.6 GM/DL (13.0-17.0); MEAN CELL VOLUME 89.5 FL (80.0-100.0); MEAN CORPUSCULAR HEMOGLOBIN 29.5 PG (27.0-34.0); MEAN PLATELET VOLUME 7.9 FL (7.0-11.0); PLATELET COUNT 196 TH/MM3 (150-450); RED CELL DISTRIBUTION WIDTH 19.3 % (11.6-17.2); WHITE BLOOD COUNT 6.1 TH/MM3 (4.0-11.0)
[2017-09-03 07:38] LABS: BICARBONATE 30.6 MEQ/L (21.0-32.0); CALCIUM 7.8 MG/DL (8.5-10.1); CREATININE 1.15 MG/DL (0.60-1.30)
[2017-09-03] MEDS: CHLORHEXIDINE 0.12% (ORAL KIT) 15 ML CUP MT SCH ×4 (08:00→20:15)
[2017-09-03] MEDS: DOCUSATE SODIUM 50 MG/SENNA 8.6 MG TAB PO SCH ×2 (08:28→20:16)
[2017-09-03] MEDS: PRAVASTATIN SOD 10 MG TAB PO SCH (08:29)
[2017-09-03] MEDS: ASPIRIN 81 MG CHEW TAB CHEW SCH (08:29)
[2017-09-03] MEDS: LACTULOSE SYRUP 20 GM/30 ML CUP PO SCH (08:29)
[2017-09-03] MEDS: HEPARIN SODIUM - SQ 10,000 UNITS/ML VIAL SQ SCH ×2 (08:29→20:15)
[2017-09-03] MEDS: BUDESONIDE-FORMOTEROL 160/4.5 MCG INHALER INH SCH ×3 (08:30→22:05)
[2017-09-03] MEDS: METOPROLOL TARTRATE 50 MG TAB PO SCH ×2 (10:49→20:15)
[2017-09-03] MEDS: PANTOPRAZOLE SODIUM 40 MG VIAL IV PUSH SCH (12:08)
[2017-09-03] MEDS: LEVOFLOXACIN 250 MG PREMIX INJ 50 ML IV SCH (12:09)
--- NOTE | 2017-09-03 13:52 | HHI.HCPN ---
Reason for visit a. To assist with evaluation and management of symptoms including: Shortness of breath, pain, debility b. To assist medical decision maker(s) with: better understanding of current medical conditions; weighing benefits/burdens of medical treatment options; making medical treatment decisions. Subjective/Interval History Follow up medically necessary for symptom management and further clarification of goals of care. Patient seen and examined in his room on [facility]. Patient remains intubated, sedated on mechanical ventilation. Vent settings currently PRVC/AC 18/550/IT 1.0s/8/60%. No spontaneous breath. Patient FIO2 increased to 60% from 50% at midnight with O2 saturation currently in the mid 90s. Patient currently on propofol infusion at 30 mcg/kg/min and fentanyl infusion at 100 mcg/hr. Slight withdrawal to noxious stimulation with bilateral lower extremities. No signs of pain, discomfort or distress noted. 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 Tube feeding Jevity 1.5 infusing via NGT. Laboratory workup today revealing WBC 6.1, hemoglobin 10.6, hematocrit 32.2, platelet count 196, potassium 3.2, BUN/creatinine 22/1.15, random glucose 196, calcium 7.8. Case discussed with bedside RN . Family/friend interactions No family at bedside. . Advance Directives Health Care Surrogate: Copy in medical record Advance Directive Specifics Date completed: [facility] -April 08, 2017 . Health Care Surrogate(s): HCS- (Long time friend-15 yrs) Kay Rizvi [phone]- (July 2017) Alternate [facility]- Cousin- Dahiana Mayorga [phone] (will serve as [facility]) . Objective Vital Signs Date Time Temp Pulse Resp B/P (MAP) Pulse Ox O2 Delivery O2 Flow Rate FiO2 09/03/17 12:02 95 60 09/03/17 07:47 100 50 09/03/17 06:00 48 09/03/17 06:00 93.2 50 151/92 (111) 95 09/03/17 05:00 97.8 71 151/85 (107) 96 09/03/17 04:06 98 50 09/03/17 04:00 80 09/03/17 04:00 51 09/03/17 04:00 96.4 57 129/78 (95) 97 09/03/17 03:00 96.6 53 138/87 (104) 97 09/03/17 02:00 96.6 53 137/88 (104) 97 09/03/17 02:00 56 09/03/17 01:00 96.6 52 138/88 (105) 97 09/03/17 00:15 97 50 09/03/17 00:00 97.6 53 142/90 (107) 97 09/03/17 00:00 51 09/03/17 00:00 80 09/02/17 23:00 96.4 52 135/86 (102) 97 09/02/17 22:09 96.8 54 136/85 (102) 97 09/02/17 22:00 50 09/02/17 21:00 97.0 56 135/85 (102) 96 09/02/17 20:00 97 Mechanical Ventilator 50 09/02/17 20:00 50 09/02/17 20:00 80 09/02/17 20:00 97.3 60 18 94 09/02/17 19:49 98 50 09/02/17 18:00 62 09/02/17 16:00 97.5 68 17 126/85 (99) 94 09/02/17 16:00 68 09/02/17 16:00 50 09/02/17 15:47 94 50 09/02/17 14:00 63 Intake & Output 09/03/17 09/03/17 07:00 19:00 Intake Total 993 ml Output Total 500 ml Balance 493 ml Intake IV Total 502 ml Tube Irrigant 391 ml Other 100 ml Output Urine Total 500 ml Gastric Drainage Total 0 ml # Bowel Movements 1 Physical Exam CONSTITUTIONAL/GENERAL: This is a chronically ill patient, intubated, sedated. TUBES/LINES/DRAINS: ETT, NGT, PIV, SCDs, Dockery catheter, bilateral upper extremity soft restraints SKIN: No jaundice, rashes, or lesions. Ecchymoses on upper extremities. No wounds seen anteriorly. Not diaphoretic. HEAD: Atraumatic. Normocephalic. EYES: Pupils 2 mm, questionable reaction.No scleral icterus. No injection or drainage. Fundi not examined. ENT: Unable to assess Hearing. Nose without bleeding or purulent drainage. Moist oral mucosa NECK: Trachea midline. Supple, nontender. CARDIOVASCULAR: S1-S2 normal, no murmurs, no JVD. peripheral pulses symmetric. RESPIRATORY/CHEST: Symmetric, unlabored respirations. Rhonchi to auscultation. Diminished in the bases. No wheezes, rales. GASTROINTESTINAL: Abdomen soft, non-tender, nondistended. Bowel sounds present. TF infusing via NGT GENITOURINARY: Without palpable bladder distension. Dockery catheter in place. MUSCULOSKELETAL: Extremities without clubbing, cyanosis. Edema to bilateral upper extremities. No mottling or clubbing. NEUROLOGICAL: Intubated, sedated on mechanical ventilation. Slight withdrawal to noxious stimulation with BLE PSYCHIATRIC: Unable to assess at this time. . Diagnostic Tests Laboratory Laboratory Tests Test 08/31/17 20:06 09/01/17 05:05 09/01/17 09:45 09/01/17 12:27 Blood Gas Puncture Site RT RADIAL Blood Gas Patient Temperature 98.6 Blood Gas HCO3 15 mmol/L (22-26) Blood Gas Base Excess -11.6 mmol/L (-2-2) Blood Gas Oxygen Saturation 93 % (90-100) Arterial Blood pH 7.18 (7.380-7.420) Arterial Blood Partial Pressure CO2 43 mmHg (38-42) Arterial Blood Partial Pressure O2 101 mmHg (61-120) Arterial Blood Oxygen Content 15.7 Vol % (12.0-20.0) Arterial Blood Carboxyhemoglobin 0.9 % (0-4) Arterial Blood Methemoglobin 1.4 % (0-2) Blood Gas Hemoglobin 11.9 G/DL (12.0-16.0) Oxygen Delivery Device BIPAP Blood Gas Ventilator Setting 10 IPAP/5 EPAP Blood Gas Inspired Oxygen 80 % White Blood Count 11.5 TH/MM3 (4.0-11.0) Red Blood Count 3.86 MIL/MM3 (4.50-5.90) Hemoglobin 11.1 GM/DL (13.0-17.0) 10.4 GM/DL (13.0-17.0) Hematocrit 34.6 % (39.0-51.0) 31.1 % (39.0-51.0) Mean Corpuscular Volume 89.6 FL (80.0-100.0) Mean Corpuscular Hemoglobin 28.8 PG (27.0-34.0) Mean Corpuscular Hemoglobin Concent 32.1 % (32.0-36.0) Red Cell Distribution Width 19.9 % (11.6-17.2) Platelet Count 235 TH/MM3 (150-450) Mean Platelet Volume 7.6 FL (7.0-11.0) Blood Urea Nitrogen 18 MG/DL (7-18) Creatinine 1.33 MG/DL (0.60-1.30) Random Glucose 157 MG/DL (74-106) Calcium Level 7.9 MG/DL (8.5-10.1) Sodium Level 141 MEQ/L (136-145) Potassium Level 4.2 MEQ/L (3.5-5.1) Chloride Level 111 MEQ/L (98-107) Carbon Dioxide Level 17.3 MEQ/L (21.0-32.0) Anion Gap 13 MEQ/L (5-15) Estimat Glomerular Filtration Rate 54 ML/MIN (>89) Vancomycin Level Trough 32.2 MCG/ML (5.0-10.0) Test 09/01/17 23:37 09/01/17 23:42 09/02/17 06:06 09/02/17 10:24 Hemoglobin 9.9 GM/DL (13.0-17.0) 10.2 GM/DL (13.0-17.0) Hematocrit 29.5 % (39.0-51.0) 30.7 % (39.0-51.0) Blood Gas Puncture Site RT RADIAL RT RADIAL Blood Gas Patient Temperature 98.6 98.6 Blood Gas HCO3 27 mmol/L (22-26) 29 mmol/L (22-26) Blood Gas Base Excess 2.4 mmol/L (-2-2) 4.6 mmol/L (-2-2) Blood Gas Oxygen Saturation 90 % (90-100) 87 % (90-100) Arterial Blood pH 7.42 (7.380-7.420) 7.41 (7.380-7.420) Arterial Blood Partial Pressure CO2 42 mmHg (38-42) 47 mmHg (38-42) Arterial Blood Partial Pressure O2 68 mmHg (61-120) 62 mmHg (61-120) Arterial Blood Oxygen Content 12.6 Vol % (12.0-20.0) 12.2 Vol % (12.0-20.0) Arterial Blood Carboxyhemoglobin 1.3 % (0-4) 1.2 % (0-4) Arterial Blood Methemoglobin 1.3 % (0-2) 1.2 % (0-2) Blood Gas Hemoglobin 9.9 G/DL (12.0-16.0) 10.0 G/DL (12.0-16.0) Oxygen Delivery Device VENTILATOR VENTILATOR Blood Gas Ventilator Setting PSYCHIATRIC Blood Gas Inspired Oxygen 90 % 80 % White Blood Count 11.8 TH/MM3 (4.0-11.0) Red Blood Count 3.47 MIL/MM3 (4.50-5.90) Mean Corpuscular Volume 88.6 FL (80.0-100.0) Mean Corpuscular Hemoglobin 29.5 PG (27.0-34.0) Mean Corpuscular Hemoglobin Concent 33.2 % (32.0-36.0) Red Cell Distribution Width 19.3 % (11.6-17.2) Platelet Count 209 TH/MM3 (150-450) Mean Platelet Volume 7.6 FL (7.0-11.0) Blood Urea Nitrogen 23 MG/DL (7-18) Creatinine 1.31 MG/DL (0.60-1.30) Random Glucose 178 MG/DL (74-106) Calcium Level 7.5 MG/DL (8.5-10.1) Phosphorus Level 3.6 MG/DL (2.5-4.9) Magnesium Level 2.1 MG/DL (1.5-2.5) Sodium Level 138 MEQ/L (136-145) Potassium Level 3.5 MEQ/L (3.5-5.1) Chloride Level 101 MEQ/L (98-107) Carbon Dioxide Level 28.2 MEQ/L (21.0-32.0) Anion Gap 9 MEQ/L (5-15) Estimat Glomerular Filtration Rate 55 ML/MIN (>89) Test 09/02/17 12:45 09/03/17 06:02 Hemoglobin 10.2 GM/DL (13.0-17.0) 10.6 GM/DL (13.0-17.0) Hematocrit 30.8 % (39.0-51.0) 32.2 % (39.0-51.0) White Blood Count 6.1 TH/MM3 (4.0-11.0) Red Blood Count 3.60 MIL/MM3 (4.50-5.90) Mean Corpuscular Volume 89.5 FL (80.0-100.0) Mean Corpuscular Hemoglobin 29.5 PG (27.0-34.0) Mean Corpuscular Hemoglobin Concent 33.0 % (32.0-36.0) Red Cell Distribution Width 19.3 % (11.6-17.2) Platelet Count 196 TH/MM3 (150-450) Mean Platelet Volume 7.9 FL (7.0-11.0) Blood Urea Nitrogen 22 MG/DL (7-18) Creatinine 1.15 MG/DL (0.60-1.30) Random Glucose 196 MG/DL (74-106) Calcium Level 7.8 MG/DL (8.5-10.1) Sodium Level 142 MEQ/L (136-145) Potassium Level 3.2 MEQ/L (3.5-5.1) Chloride Level 101 MEQ/L (98-107) Carbon Dioxide Level 30.6 MEQ/L (21.0-32.0) Anion Gap 10 MEQ/L (5-15) Estimat Glomerular Filtration Rate 64 ML/MIN (>89) Result Diagram: 09/03/17 0602 09/03/17 0602 Procedures 08/29/17-intubation 08/31/17-self extubation 08/31/17-reintubated . Assessment and Plan Disease Oriented Problem List: (1) Acute respiratory failure with hypoxia and hypercarbia (2) Lung cancer (3) Atrial fibrillation with RVR (4) Lung consolidation (5) COPD (chronic obstructive pulmonary disease) Symptom Scale: (1) Shortness of breath Comment: Hx of lung cancer. CT angiography revealed multilobar consolidation and no evidence for pulmonary embolism, extensive coronary calcifications. . (2) Pain Comment: Risk for pain-from procedure (intubation), bedbound status. . (3) Debility 0-10 Scale: Unable to quantify Comment: Progressive . Pertinent Non-Medical Issues Psychosocial:Patient was born and raised in [place]. He left [place] the age of 20. Patient moved to [place] in [place]. Patient has a 2 years college degree in [employer] technology. 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 Patient was and twice. He never had children. Spiritual:N nondenominational affiliation Legal:Patient has a HCS form signed and completed a Community DNR Ethical issues impacting care:None identified at this time . Important Contacts Alternate [facility]- Cousin- Dahiana Mayorga [phone] Cousin- Stephanie Rodas- Friend-Nemo [phone] [facility]- (Long time friend-15 yrs) Kay Rizvi [phone]- . Prognosis Mr Adams is a 61 years old male with a past medical history significant of lung cancer s/p radiation, COPD, hypertension, coronary artery disease and tobacco use. Patient presented to the ER via EMS on 08/29/17 complaining of shortness of breath that had started the night before, generalized malaise and weakness. Clinical course complicated with atrial fibrillation with RVR, and acute hypoxic and hypercapnic respiratory failure. Given ongoing comorbidities , patient remains at high risk for further complications, deterioration and decline. . Code Status: Full Code Plan PLAN: Legal decision maker: Patient is currently intubated, sedated on mechanical ventilation and is not able to participate in decision-making. Patient`s cousin Dahiana Mayorga whom he has designated as his alternate healthcare surrogate will make medical decisions for patient. Goals: Aggressive CODE STATUS: Full code Per last telephone conversation with patient`s [facility], goals remain aggressive. SYMPTOMS: * Shortness of breath: Patient has history of lung cancer, COPD and tobacco use. Patient presented with shortness of breath. Intubated 08/29, self extubated 08/31, reintubated 08/31 secondary to respiratory failure. Patient chest X-ray showing persistent 7 cm masslike area in the left hilum and diffuse interstitial disease with suspected subpulmonic left pleural effusion. Worsening chest x-ray today. Solu-Medrol and duo nebs prn.Patient continues to require increase in FIO2. Currently on FiO2 60%. No recommendations at this time. * Pain: Patient is at risk for pain, required intubation in the ER. Currently bedbound. Fentanyl infusion restarted last night 09/02. No signs of pain, discomfort noted. No recommendations at this time. * Debility: Progressive: Hx of lung cancer s/p radiation. Multiple hospitalizations. Patient may benefit from PT consultation if goals remain aggressive. . Palliative care will continue to follow the patient during hospital course as condition evolves, to assist patient/decision-maker with understanding of their medical conditions, weighing benefits/burdens of treatment options, for clarification of goals of treatment. Additionally will assist with any symptoms of palliative concern Attestation To help prompt me to consider important information that might be impacting today's encounter and assessment, information from prior notes written by myself or my colleagues may have been "brought forward" into today's note. My signature on this note, however, is an attestation that I personally performed the exam, history, and/or decision-making noted today, and, unless otherwise indicated, the interactions with patient, family, and staff as well as the review of records all occurred today. I also attest that the listed assessment and stated plan reflect my best clinical judgment today based on the combination of historical information, prior notes, and today's exam/ interactions. When time spent is documented, it refers only to time spent today by the signer, or if indicated, combined time spent today by collaborating physician/nurse practitioner. Randa Tenorio September 03, 2017 13:52
--- NOTE | 2017-09-03 14:55 | HHI.IDPN ---
Note Infectious Disease Note Patient is on the ventilator. FiO2 now down to 60%. Sedation is being weaned. Opens eyes to voice. Little secretions noted. Afebrile. Presented to the emergency department on 08/29 with respiratory symptoms. Intubated in the ED. PAST MEDICAL HISTORY: Left lung cancer, being treated with chemotherapy and radiation, coronary artery disease, peripheral arterial disease, COPD, hypertension, anxiety, depression, bilateral cataract surgery, recent pneumonia due to Pseudomonas in 04/2017 and 07/2017, history of iliac artery bypass surgery. ALLERGIES: NO KNOWN DRUG ALLERGIES. Current Medications Medications (Trade) Dose Ordered Sig/Benton Route PRN Reason Start Time Stop Time Status Last Admin Dose Admin Sodium Chloride (NS Flush) 2 ml UNSCH PRN IVF FLUSH AFTER USING IV ACCESS 08/29/17 18:00 Potassium Chloride 100 ml @ 50 mls/hr Q2H PRN IV For Potassium 2.8 - 3.2 mEq/L 08/29/17 18:45 Potassium Chloride 100 ml @ 50 mls/hr Q2H PRN IV For Potassium 2.8 - 3.2 mEq/L 08/29/17 18:45 Potassium Bicarb/ Potassium Chloride (K-Lyte Cl Eff) 50 meq UNSCH PRN PO For Potassium 3.3 - 3.5 mEq/L 08/29/17 18:45 Potassium Chloride 100 ml @ 25 mls/hr UNSCH PRN IV For Potassium 3.3 - 3.5 mEq/L 08/29/17 18:45 Potassium Chloride 100 ml @ 50 mls/hr Q2H PRN IV For Potassium 3.3 - 3.5 mEq/L 08/29/17 18:45 Magnesium Sulfate 4 gm/Sodium Chloride 100 ml @ 50 mls/hr UNSCH PRN IV For Magnesium 0.9 - 1.1 mg/dL 08/29/17 18:45 Magnesium Oxide (Mag-Ox) 800 mg UNSCH PRN PO For Magnesium 1.2 - 1.6 mg/dL 08/29/17 18:45 Magnesium Sulfate 2 gm/Sodium Chloride 100 ml @ 50 mls/hr UNSCH PRN IV For Magnesium 1.2 - 1.6 mg/dL 08/29/17 18:45 Potassium Phosphate (K-Phos) 2,000 mg Q4H PRN PO For Phosphorus < 2.5 mg/dL 08/29/17 18:45 Sodium Phosphate 30 mmol/Sodium Chloride 250 ml @ 42 mls/hr UNSCH PRN IV For Phosphorus < 2.5 mg/dL 08/29/17 18:45 Potassium Phosphate (K-Phos) 2,000 mg UNSCH PRN PO/TUBE SEE LABEL COMMENTS 08/29/17 18:45 Potassium Phosphate 30 mmol/ Sodium Chloride 260 ml @ 42 mls/hr UNSCH PRN IV SEE LABEL COMMENTS 08/29/17 18:45 Chlorhexidine Gluconate (Peridex 0.12% Liq) 15 ml BID@08,20 MT 08/29/17 20:00 09/03/17 08:30 Dextrose (D50w (Vial) Inj) 25 ml UNSCH PRN IV PUSH HYPOGLYCEMIA-SEE COMMENTS 08/29/17 18:45 Insulin Human Regular (NovoLIN R SUPPLEMENTAL SCALE) 1 Q6HR SQ 08/30/17 00:00 09/03/17 12:00 Albuterol/ Ipratropium (Duoneb Neb) 1 ampule Q2HR NEB PRN INH WHEEZING 08/29/17 18:45 Piperacillin Sod/ Tazobactam Sod 100 ml @ 200 mls/hr Q6H IV 08/29/17 20:00 09/03/17 14:00 Ondansetron HCl (Zofran Inj) 4 mg Q6H PRN IV PUSH NAUSEA OR VOMITING 08/29/17 18:45 08/31/17 19:59 Miscellaneous Information ([facility] [place] [facility] Information) 1 Q361D XX 08/29/17 18:45 08/29/17 18:45 Chlorhexidine Gluconate (Chlorhexidine 2% Cloth) 3 pack Taper DAILY@04 TOP 08/30/17 04:00 08/26/18 03:59 09/03/17 04:00 Chlorhexidine Gluconate (Chlorhexidine 2% Cloth) 3 pack UNSCH PRN TOP HYGIENIC CARE 08/29/17 18:45 Senna/Docusate Sodium (Nata-Colace) 1 tab BID PO 08/29/17 21:00 09/03/17 08:28 Magnesium Hydroxide (Milk Of Magnesia Liq) 30 ml Q12H PRN PO Mild constipation 08/29/17 18:45 Sodium Chloride (NS Flush) 2 ml UNSCH PRN IVF FLUSH AFTER USING IV ACCESS 08/29/17 19:30 Ipratropium [place] (Atrovent Neb) 0.5 mg Q6HR NEB NEB 08/30/17 10:00 09/03/17 07:46 Pantoprazole Sodium (Protonix Inj) 40 mg Q24H IV PUSH 08/31/17 12:00 09/03/17 12:08 Methylprednisolone Sodium Succinate (SoluMEDROL INJ) 40 mg Q8HR IV PUSH 08/31/17 14:00 09/03/17 14:00 Chlorhexidine Gluconate (Peridex 0.12% Liq) 15 ml BID@08,20 MT 09/01/17 08:00 Propofol 100 ml @ 1.65 mls/hr TITRATE PRN IV SEDATION 08/31/17 22:30 09/03/17 08:42 Pravastatin Sodium (Pravachol) 10 mg DAILY PO 09/01/17 09:00 09/03/17 08:29 Metoprolol Tartrate (Lopressor) 50 mg Q12HR PO 09/01/17 09:00 09/03/17 10:49 Budesonide/ Formoterol Fumarate (Symbicort 160-4.5 Mcg Inh) 1 puff Q12HR INH 09/01/17 09:00 09/02/17 08:40 Aspirin (Aspirin Chew) 81 mg DAILY CHEW 09/01/17 09:00 09/03/17 08:29 Diltiazem HCl (Cardizem) 60 mg Q6H PO 09/01/17 09:00 09/03/17 10:49 Heparin Sodium (Porcine) (Heparin Inj) 5,000 units Q12HR SQ 09/01/17 09:00 09/03/17 08:29 Levofloxacin/ Dextrose 50 ml @ 50 mls/hr Q48H IV 09/01/17 13:00 09/03/17 12:09 Sennosides (Senokot) 17.2 mg Q12H PRN PO Moderate constipation 09/02/17 08:15 Bisacodyl (Dulcolax Supp) 10 mg DAILY PRN RECTAL SEVERE CONSITIPATION 09/02/17 08:15 Lactulose (Lactulose Liq) 30 ml DAILY PRN PO SEVERE CONSITIPATION 09/02/17 08:15 Lactulose (Lactulose Liq) 30 ml DAILY PO 09/02/17 09:00 09/03/17 08:29 Fentanyl Citrate 250 ml @ 5 mls/hr TITRATE PRN IV SEDATION 09/02/17 17:30 09/02/17 17:51 Objective: Vital Signs Date Time Temp Pulse Resp B/P (MAP) Pulse Ox O2 Delivery O2 Flow Rate FiO2 09/03/17 14:00 73 09/03/17 12:02 95 60 09/03/17 12:00 55 09/03/17 12:00 72 09/03/17 12:00 98.0 72 20 159/99 (119) 99 09/03/17 10:00 66 09/03/17 08:00 50 09/03/17 08:00 80 09/03/17 08:00 97.4 50 13 151/92 (111) 97 09/03/17 07:47 100 50 09/03/17 07:00 97 Mechanical Ventilator 45 09/03/17 06:00 48 09/03/17 06:00 93.2 50 151/92 (111) 95 09/03/17 05:00 97.8 71 151/85 (107) 96 09/03/17 04:06 98 50 09/03/17 04:00 80 09/03/17 04:00 51 09/03/17 04:00 96.4 57 129/78 (95) 97 09/03/17 03:00 96.6 53 138/87 (104) 97 09/03/17 02:00 96.6 53 137/88 (104) 97 09/03/17 02:00 56 09/03/17 01:00 96.6 52 138/88 (105) 97 09/03/17 00:15 97 50 09/03/17 00:00 97.6 53 142/90 (107) 97 09/03/17 00:00 51 09/03/17 00:00 80 09/02/17 23:00 96.4 52 135/86 (102) 97 09/02/17 22:09 96.8 54 136/85 (102) 97 09/02/17 22:00 50 09/02/17 21:00 97.0 56 135/85 (102) 96 09/02/17 20:00 97 Mechanical Ventilator 50 09/02/17 20:00 50 09/02/17 20:00 80 09/02/17 20:00 97.3 60 18 94 09/02/17 19:49 98 50 09/02/17 18:00 62 09/02/17 16:00 97.5 68 17 126/85 (99) 94 09/02/17 16:00 68 09/02/17 16:00 50 09/02/17 15:47 94 50 Laboratory Tests Test 09/01/17 23:37 09/02/17 06:06 09/02/17 12:45 09/03/17 06:02 Hemoglobin 9.9 GM/DL 10.2 GM/DL 10.2 GM/DL 10.6 GM/DL Hematocrit 29.5 % 30.7 % 30.8 % 32.2 % White Blood Count 11.8 TH/MM3 6.1 TH/MM3 Red Blood Count 3.47 MIL/MM3 3.60 MIL/MM3 Mean Corpuscular Volume 88.6 FL 89.5 FL Mean Corpuscular Hemoglobin 29.5 PG 29.5 PG Mean Corpuscular Hemoglobin Concent 33.2 % 33.0 % Red Cell Distribution Width 19.3 % 19.3 % Platelet Count 209 TH/MM3 196 TH/MM3 Mean Platelet Volume 7.6 FL 7.9 FL Laboratory Tests Test 09/02/17 06:06 09/03/17 06:02 Blood Urea Nitrogen 23 MG/DL 22 MG/DL Creatinine 1.31 MG/DL 1.15 MG/DL Random Glucose 178 MG/DL 196 MG/DL Calcium Level 7.5 MG/DL 7.8 MG/DL Phosphorus Level 3.6 MG/DL Magnesium Level 2.1 MG/DL Sodium Level 138 MEQ/L 142 MEQ/L Potassium Level 3.5 MEQ/L 3.2 MEQ/L Chloride Level 101 MEQ/L 101 MEQ/L Carbon Dioxide Level 28.2 MEQ/L 30.6 MEQ/L Anion Gap 9 MEQ/L 10 MEQ/L Estimat Glomerular Filtration Rate 55 ML/MIN 64 ML/MIN IMAGING: Chest X-Ray 09/02/17 0000 Signed Impressions: Service Date/Time: Saturday, September 02, 2017 06:32 - CONCLUSION: Bilateral airspace disease with interval worsening in the left base. Possible developing left-sided effusion. Jaret Crouch MD Abdomen X-Ray 08/31/17 0000 Signed Impressions: Service Date/Time: Thursday, August 31, 2017 20:34 - CONCLUSION: 1. Nasogastric tube tip in distal stomach. David Jay MD CT Angiography 08/29/17 1849 Signed Impressions: Service Date/Time: Tuesday, August 29, 2017 19:36 - CONCLUSION: 1. Multilobar consolidation. 2. No evidence for pulmonary embolism. 3. Extensive coronary calcifications Pk Bae MD PHYSICAL EXAMINATION: GENERAL: On the ventilator. Sedated. HEENT: Pupils reactive to light. No icterus. Moist oral mucosa. NECK: No swelling. No adenopathy. LUNGS: Bilateral coarse breath sounds. HEART: Regular rate and rhythm. Slight systolic murmur at the left sternal border. ABDOMEN: Soft, nontender. EXTREMITIES: Ecchymosis at the right upper extremity. 1+ edema at the upper extremities. No clubbing or cyanosis. SKIN: No diffuse rash. The skin is warm and moist. NEUROLOGIC: Unable to assess. PSYCHIATRIC: Unable to assess. IMPRESSION: 1. Bilateral pneumonia due to Pseudomonas. 2. Acute respiratory failure. 3. History of lung cancer. 4. One positive blood culture from 08/29 showing Staphylococcus species coagulase negative. Very likely contamination. RECOMMENDATIONS: 1. Continue piperacillin/tazobactam. 2. Continue Levaquin, adjusted for renal function. 3. Monitor renal function. 4. Monitor temperature. 5. Monitor white cell count. 6. Monitor clinical status. Herve Zarate MD September 03, 2017 14:55
[2017-09-03] MEDS: POTASSIUM CHLOR 20 MEQ PREMIX 100 ML IV PRN ×3 (15:32→23:09)
--- NOTE | 2017-09-03 17:42 | HHI.CCPN ---
Subjective Remarks/Hospital Course 08/29: This is a 61-year-old male with a history of lung cancer undergoing current chemotherapy and radiation who was recently admitted on 07/19 for aspiration pneumonia. During that admission he did have episodes of paroxysmal atrial fibrillation and had an echo from 04/2017 showing an EF of 50-55%. He represents today to the emergency department with acute shortness of breath since last night. Per the ER documentation, he denies any coughing, fever, chills, or other recent symptoms or changes other than the new dyspnea. In the emergency department he was found to be in A. fib with RVR. This initially converted to sinus rhythm 1 after diltiazem 20 mg IV bolus, but then very quickly went back into atrial for ablation with rapid ventricular response. 2 doses of adenosine were not able to convert it. The patient was loaded with amiodarone and infusion was started. After this, the patient become acutely hypoxemic requiring emergent intubation. Please refer to the emergency room physician documentation for additional details regarding the decompensation. When I came to evaluate patient, the patient was recently intubated, sedated. No additional information is available from the patient due to his clinical condition. Review of systems is unobtainable. Critical care medicine is consulted to evaluate manage his acute hypoxic respiratory failure along with his acute supraventricular tachycardia. 08/30: Patient remains intubated and sedated. FiO2 down to 0.5. Patient continues to be on amiodarone infusion and heparin drip. Sedation achieved with propofol and fentanyl. Patient remains hypothermic requiring Gracia hugger, urine output 350 mL's documented since admission. 08/31: No events over the night. Patient remains intubated and sedated. Hemoglobin more stable posttransfusion. Hypothermia resolved, T-max of 100.3. Urine output remains low, 635 mL's over the last 24 hours. Oxygenation is improved. No family present at bedside. Patient remains in sinus rhythm, on amiodarone infusion. No report of melena, hematochezia or coffee-ground aspirate from NG tube. Morning chest x-ray reviewed, worsening infiltrates over the right thorax, unchanged consolidation over the left. 09/01: Afebrile. Patient was extubated yesterday afternoon and emergently intubated 1030 last night secondary to hypoxemic respiratory failure. This x- ray pending this a.m.. The patient also was noted to have severe metabolic acidosis and sodium bicarbonate infusion was initiated. Patient noted to have Pseudomonas, and placed on Zosyn. Patient continues to have leukocytosis with worsening pneumonia ID has been consulted appreciate recommendations. Patient previously DNR palliative has been consulted up on hypoxemic respiratory failure patient was noted to request intubation at that time. Palliative care consult pending. Patient continues on amiodarone infusion now in sinus rhythm. Amiodarone infusion discontinued the patient continued on metoprolol and Cardizem home medications. Hemoglobin appears stable status post 2 units transfusion 48 hours ago. Will do serial H&H's aspirin reinitiated will hold Plavix for now, and continue to follow. Subcu heparin initiated. 09/02: Afebrile. Hemoglobin stable for the last 24 hours. Plan to restart tube feeds this a.m.. Metabolic acidosis resolved, patient's sodium bicarbonate discontinued. Patient requiring increasing FiO2 requirements during the night , now at 100% ABG pending. This am chest x-ray worsening. 09/03: Late entry note patient seen at 8:15 AM .afebrile. Chest x-ray continues to worsen. FiO2 requirement slightly decreased we will attempt CPAP trials today. Objective Vital Signs Date Time Temp Pulse Resp B/P (MAP) Pulse Ox O2 Delivery O2 Flow Rate FiO2 09/03/17 17:32 50 09/03/17 16:00 85 09/03/17 14:53 100 09/03/17 12:00 98.0 20 159/99 (119) 09/03/17 07:00 Mechanical Ventilator 08/31/17 16:15 15.00 Intake and Output 09/03/17 09/03/17 09/04/17 08:00 16:00 00:00 Intake Total 893 ml 250 ml Output Total 500 ml Balance 393 ml 250 ml Result Diagram: 09/03/17 0602 09/03/17 0602 Imaging Last Impressions Chest X-Ray 09/02/17 0000 Signed Impressions: Service Date/Time: Saturday, September 02, 2017 06:32 - CONCLUSION: Bilateral airspace disease with interval worsening in the left base. Possible developing left-sided effusion. Jaret Crouch MD Abdomen X-Ray 08/31/17 0000 Signed Impressions: Service Date/Time: Thursday, August 31, 2017 20:34 - CONCLUSION: 1. Nasogastric tube tip in distal stomach. David Jay MD CT Angiography [id number]/29/171848 Signed Impressions: Service Date/Time: Tuesday, August 29, 2017 19:36 - CONCLUSION: 1. Multilobar consolidation. 2. No evidence for pulmonary embolism. 3. Extensive coronary calcifications Pk Bae MD Last 24 hours Impressions Chest X-Ray 08/31/17 0600 Signed Impressions: Service Date/Time: Thursday, August 31, 2017 02:57 - CONCLUSION: 1. Worsening airspace disease throughout the right lung. 2. Stable left perihilar consolidation with some developing left basilar atelectasis. Jaret Crouch MD Last Impressions CT Angiography 08/29/171848 Signed Impressions: Service Date/Time: Tuesday, August 29, 2017 19:36 - CONCLUSION: 1. Multilobar consolidation. 2. No evidence for pulmonary embolism. 3. Extensive coronary calcifications Pk Bae MD Chest X-Ray 08/29/171830 Signed Impressions: Service Date/Time: Tuesday, August 29, 2017 18:37 - CONCLUSION: 1. ET tube and NG tube in good position. 2. Mass like area versus consolidation seen in the left perihilar region. 3. Diffuse increased interstitial markings likely related to edema. Dmitri Echeverria MD Objective Remarks General - elderly gentleman, intubated and sedated propofol and fentanyl, chronically ill-appearing HEENT - pupils equal, reactive, sclerae anicteric, neck supple, no nuchal rigidity, neck veins not distended, no carotid bruit, orally intubated CV - regular S1, S2, no murmurs Chest - diffuse coarse breath sounds b/l, good air entry, no wheezes Abdomen - soft, appears non-tender, non-distended, BS present, no hepatomegaly, no splenomegaly Skin - no rashes, no cyanosis Extremities - warm and well perfused, no edema, + peripheral pulses, no clubbing Neuro - RASS -2. intubated and sedated, pupils are equal and reactive, following commands on light sedation propofol 15 mcgs, fentanyl 50 mcgs A/P Problem List: (1) OBED (acute kidney injury) ICD Code: N17.9 - Acute kidney failure, unspecified (2) Severe protein-calorie malnutrition ICD Code: E43 - Unspecified severe protein-calorie malnutrition Status: Chronic (3) Shortness of breath ICD Code: R06.02 - Shortness of breath Status: Acute (4) Tobacco abuse ICD Code: Z72.0 - Tobacco use Status: Chronic (5) Paroxysmal A-fib ICD Code: I48.0 - Paroxysmal atrial fibrillation Status: Chronic (6) Atrial fibrillation with RVR ICD Code: I48.91 - Unspecified atrial fibrillation Status: Resolved (7) PNA (pneumonia) ICD Code: J18.9 - Pneumonia, unspecified organism (8) COPD (chronic obstructive pulmonary disease) ICD Code: J44.9 - Chronic obstructive pulmonary disease, unspecified (9) Lung cancer ICD Code: C34.90 - Malignant neoplasm of unspecified part of unspecified bronchus or lung (10) Debility ICD Code: R53.81 - Other malaise Status: Chronic (11) Pain ICD Code: R52 - Pain, unspecified Status: Chronic (12) Lung consolidation ICD Code: J18.1 - Lobar pneumonia, unspecified organism Status: Acute (13) Acute respiratory failure with hypoxia and hypercarbia ICD Code: J96.01 - Acute respiratory failure with hypoxia; J96.02 - Acute respiratory failure with hypercapnia Assessment and Plan Plan by systems: Neurologic: Hypothermia-resolved Sedation vacation when clinically appropriate- patient on high FiO2 requirements at this time, not indicated Tylenol 650 mg every 6 hours as needed for temp greater than 101.5 Continue propofol infusion to maintain ventilator synchrony Respiratory: Possible pneumonia +/-radiation pneumonitis Lung cancer undergoing concurrent radiation therapy and chemotherapy Acute COPD exacerbation Acute hypoxemic and hypercapnic respiratory failure Maintain O2 sat greater than 92% 09/03 chest [id number] Ventilator bundle Begin CPAP trials Duo nebs every 6 hours scheduled and every 2 hours as needed-Xopenex, and ipratropium Methylprednisolone 40 mg every 8 hours Cardiovascular: A. fib RVR-resolved Maintain MAP greater than 65 09/01-amiodarone infusion discontinued 09/01 Resumed patient's Cardizem 60 mg every 6 hours and bisoprolol 50 mg twice daily 09/01 Lovastatin 10 mg daily, aspirin 81 mg continued Renal: AK I -- Strict I/Os FEN/GI: Electrolyte abnormality Severe metabolic acidosis-resolved Resume home med Lasix 20 mg/day Sodium bicarbonate infusion discontinued Dietary consult initiated -begin tube feeds 5/2 Bowel regimen-no bowel movement since admission to hospital Lactulose 30 mL daily Zofran for nausea Protonix for GI prophylaxis Hypokalemia-repletion potassium with 80 meq Heme/ID: Gram-positive bacteremia Acute blood loss anemia-resolved 08/31 Heparin infusion discontinued 09/01 no active signs of bleeding, hematuria resolved, subcu heparin initiated ID following-antibiotics per ID recommendation level Levaquin and vancomycin Sputum- Pseudomonas Blood- MSSA (contaminant?) Endocrine: Glucose monitoring per ICU protocol -- SSI Prophylaxis: GI Prophylaxis Protonix DVT Prophylaxis -- SCDs Heparin SQ BID Lines: Peripheral IVs x 2. Central line if indicated. Dispo: my billing statement This patient remains critically ill with one or more organ systems which are or may become a threat to life. I have spent in excess of 30 minutes discontinuously in the care and management of this patient. This time is exclusive of procedures, and includes, but is not limited to, evaluation of the patient, review of the medical record, discussions with family, consultants, nursing staff, or respiratory therapy, and documentation in the medical record. Follow-up palliative care team recommendations-patient remains a full code at this time. Discussed with Ms. Tenorio, palliative care steam engineer Patient remains very ill at high risk for further decompensation and . Physician Elba Colon Problem Qualifiers (1) PNA (pneumonia): Qualified Codes: J18.1 - Lobar pneumonia, unspecified organism Elba Colon MD September 03, 2017 17:42
[2017-09-03] MEDS: fentaNYL DRIP 250 ML IV PRN (20:14)
[2017-09-04] VITALS (18 sets, daily range): BP systolic 139–161; BP diastolic 85–97; PULSE 72–101; RESP 18; TEMP 97.8–99.4; O2SAT 92–98
[2017-09-04] MEDS: PIPERACIL-TAZO 4.5 GM PREMIX 100 ML IV SCH ×4 (02:04→20:09)
[2017-09-04] MEDS: DILTIAZEM HCL 60 MG TAB PO SCH ×4 (02:04→20:09)
[2017-09-04] MEDS: RESP: IPRATROPIUM 0.5 MG/2.5 ML NEB NEB SCH ×4 (03:42→19:42)
[2017-09-04] MEDS: CHLORHEXIDINE GLUCONATE 2 % 1 PACK (2 CLOTHS) TOP SCH (04:00)
[2017-09-04 05:50] LABS: BASOPHIL % 0.5 % (0.0-2.0); HEMATOCRIT 30.1 % (39.0-51.0); LYMPH % 1.1 % (9.0-44.0); LYMPHOCYTE # 0.1 TH/MM3 (1.0-4.8); MEAN CELL VOLUME 88.6 FL (80.0-100.0); MEAN CORPUSCULAR HEMOGLOBIN 29.5 PG (27.0-34.0); MEAN CORPUSCULAR HGB CONC 33.3 % (32.0-36.0); MEAN PLATELET VOLUME 8.1 FL (7.0-11.0); MONO % 3.9 % (0.0-8.0); MONOCYTE # 0.4 TH/MM3 (0-0.9); NEUT % 94.5 % (16.0-70.0); PLATELET COUNT 228 TH/MM3 (150-450); RED CELL DISTRIBUTION WIDTH 19.4 % (11.6-17.2); WHITE BLOOD COUNT 9.5 TH/MM3 (4.0-11.0)
[2017-09-04] MEDS: INSULIN NovoLIN REGULAR SUPPLEMENTAL SCALE SQ SCH ×4 (06:00→23:41)
[2017-09-04] MEDS: methylPREDNISolone SOD SUCC 40 MG/1 ML VIAL IV PUSH SCH ×3 (06:02→21:55)
[2017-09-04 06:20] LABS: BICARBONATE 29.2 MEQ/L (21.0-32.0); CALCIUM 7.7 MG/DL (8.5-10.1); CREATININE 1.07 MG/DL (0.60-1.30); PHOSPHORUS 2.7 MG/DL (2.5-4.9)
[2017-09-04] MEDS: BUDESONIDE-FORMOTEROL 160/4.5 MCG INHALER INH SCH ×2 (07:51→19:42)
[2017-09-04] MEDS: PRAVASTATIN SOD 10 MG TAB PO SCH (08:03)
[2017-09-04] MEDS: HEPARIN SODIUM - SQ 10,000 UNITS/ML VIAL SQ SCH ×2 (08:03→20:09)
[2017-09-04] MEDS: PROPOFOL 1000 MG/100 ML INJ 100 ML IV PRN ×2 (08:03→23:59)
[2017-09-04] MEDS: LACTULOSE SYRUP 20 GM/30 ML CUP PO SCH (08:04)
[2017-09-04] MEDS: DOCUSATE SODIUM 50 MG/SENNA 8.6 MG TAB PO SCH ×2 (08:04→20:09)
[2017-09-04] MEDS: ASPIRIN 81 MG CHEW TAB CHEW SCH (08:04)
[2017-09-04] MEDS: CHLORHEXIDINE 0.12% (ORAL KIT) 15 ML CUP MT SCH ×2 (08:04→20:00)
[2017-09-04] MEDS: METOPROLOL TARTRATE 50 MG TAB PO SCH ×2 (08:04→20:09)
[2017-09-04] MEDS: hydrALAZINE HCL 20 MG/ML VIAL IV PUSH PRN ×2 (10:24→18:33)
[2017-09-04] MEDS: PANTOPRAZOLE SODIUM 40 MG VIAL IV PUSH SCH (11:14)
[2017-09-04] MEDS: LEVOFLOXACIN 250 MG PREMIX INJ 50 ML IV SCH (12:41)
[2017-09-04] MEDS: LABETALOL HCL 100 MG/20 ML VIAL IV PUSH PRN (12:41)
--- NOTE | 2017-09-04 14:34 | HHI.IDPN ---
Note Infectious Disease Note Patient is on the ventilator. CPAP in progress. Has eyes open and tracks. Afebrile. Presented to the emergency department on 08/29 with respiratory symptoms. Intubated in the ED. PAST MEDICAL HISTORY: Left lung cancer, being treated with chemotherapy and radiation, coronary artery disease, peripheral arterial disease, COPD, hypertension, anxiety, depression, bilateral cataract surgery, recent pneumonia due to Pseudomonas in 04/2017 and 07/2017, history of iliac artery bypass surgery. ALLERGIES: NO KNOWN DRUG ALLERGIES. Current Medications Medications (Trade) Dose Ordered Sig/[place] Route PRN Reason Start Time Stop Time Status Last Admin Dose Admin Sodium Chloride (NS Flush) 2 ml UNSCH PRN IVF FLUSH AFTER USING IV ACCESS 08/29/17 18:00 Potassium Chloride 100 ml @ 50 mls/hr Q2H PRN IV For Potassium 2.8 - 3.2 mEq/L 08/29/17 18:45 Potassium Chloride 100 ml @ 50 mls/hr Q2H PRN IV For Potassium 2.8 - 3.2 mEq/L 08/29/17 18:45 09/03/17 23:09 Potassium Bicarb/ Potassium Chloride (K-Lyte Cl Eff) 50 meq UNSCH PRN PO For Potassium 3.3 - 3.5 mEq/L 08/29/17 18:45 Potassium Chloride 100 ml @ 25 mls/hr UNSCH PRN IV For Potassium 3.3 - 3.5 mEq/L 08/29/17 18:45 Potassium Chloride 100 ml @ 50 mls/hr Q2H PRN IV For Potassium 3.3 - 3.5 mEq/L 08/29/17 18:45 Magnesium Sulfate 4 gm/Sodium Chloride 100 ml @ 50 mls/hr UNSCH PRN IV For Magnesium 0.9 - 1.1 mg/dL 08/29/17 18:45 Magnesium Oxide (Mag-Ox) 800 mg UNSCH PRN PO For Magnesium 1.2 - 1.6 mg/dL 08/29/17 18:45 Magnesium Sulfate 2 gm/Sodium Chloride 100 ml @ 50 mls/hr UNSCH PRN IV For Magnesium 1.2 - 1.6 mg/dL 08/29/17 18:45 Potassium Phosphate (K-Phos) 2,000 mg Q4H PRN PO For Phosphorus < 2.5 mg/dL 08/29/17 18:45 Sodium Phosphate 30 mmol/Sodium Chloride 250 ml @ 42 mls/hr UNSCH PRN IV For Phosphorus < 2.5 mg/dL 08/29/17 18:45 Potassium Phosphate (K-Phos) 2,000 mg UNSCH PRN PO/TUBE SEE LABEL COMMENTS 08/29/17 18:45 Potassium Phosphate 30 mmol/ Sodium Chloride 260 ml @ 42 mls/hr UNSCH PRN IV SEE LABEL COMMENTS 08/29/17 18:45 Dextrose (D50w (Vial) Inj) 25 ml UNSCH PRN IV PUSH HYPOGLYCEMIA-SEE COMMENTS 08/29/17 18:45 Insulin Human Regular (NovoLIN R SUPPLEMENTAL SCALE) 1 Q6HR SQ 08/30/17 00:00 09/04/17 11:14 Albuterol/ Ipratropium (Duoneb Neb) 1 ampule Q2HR NEB PRN INH WHEEZING 08/29/17 18:45 Piperacillin Sod/ Tazobactam Sod 100 ml @ 200 mls/hr Q6H IV 08/29/17 20:00 09/04/17 14:11 Ondansetron HCl (Zofran Inj) 4 mg Q6H PRN IV PUSH NAUSEA OR VOMITING 08/29/17 18:45 08/31/17 19:59 Miscellaneous Information ([facility] [place] [facility] 1 Q361D XX 08/29/17 18:45 08/29/17 18:45 Chlorhexidine Gluconate (Chlorhexidine 2% Cloth) Taper DAILY@04 TOP 08/30/17 04:00 08/26/18 03:59 09/04/17 04:00 Chlorhexidine Gluconate (Chlorhexidine 2% Cloth) 3 pack UNSCH PRN TOP HYGIENIC CARE 08/29/17 18:45 Senna/Docusate Sodium (Nata-Colace) 1 tab BID PO 08/29/17 21:00 09/03/17 08:28 Magnesium Hydroxide (Milk Of Magnesia Liq) 30 ml Q12H PRN PO Mild constipation 08/29/17 18:45 Sodium Chloride (NS Flush) 2 ml UNSCH PRN IVF FLUSH AFTER USING IV ACCESS 08/29/17 19:30 Ipratropium [place] (Atrovent Neb) 0.5 mg Q6HR NEB NEB 08/30/17 10:00 09/04/17 07:52 Pantoprazole Sodium (Protonix Inj) 40 mg Q24H IV PUSH 08/31/17 12:00 09/04/17 11:14 Methylprednisolone Sodium Succinate (SoluMEDROL INJ) 40 mg Q8HR IV PUSH 08/31/17 14:00 09/04/17 14:11 Chlorhexidine Gluconate (Peridex 0.12% Liq) 15 ml BID@08,20 MT 09/01/17 08:00 09/04/17 08:04 Propofol 100 ml @ 1.65 mls/hr TITRATE PRN IV SEDATION 08/31/17 22:30 09/04/17 08:03 Pravastatin Sodium (Pravachol) 10 mg DAILY PO 09/01/17 09:00 09/04/17 08:03 Metoprolol Tartrate (Lopressor) 50 mg Q12HR PO 09/01/17 09:00 09/04/17 08:04 Budesonide/ Formoterol Fumarate (Symbicort 160-4.5 Mcg Inh) 1 puff Q12HR INH 09/01/17 09:00 09/04/17 07:51 Aspirin (Aspirin Chew) 81 mg DAILY CHEW 09/01/17 09:00 09/04/17 08:04 Diltiazem HCl (Cardizem) 60 mg Q6H PO 09/01/17 09:00 09/04/17 14:11 Heparin Sodium (Porcine) (Heparin Inj) 5,000 units Q12HR SQ 09/01/17 09:00 09/04/17 08:03 Sennosides (Senokot) 17.2 mg Q12H PRN PO Moderate constipation 09/02/17 08:15 Bisacodyl (Dulcolax Supp) 10 mg DAILY PRN RECTAL SEVERE CONSITIPATION 09/02/17 08:15 Lactulose (Lactulose Liq) 30 ml DAILY PRN PO SEVERE CONSITIPATION 09/02/17 08:15 Lactulose (Lactulose Liq) 30 ml DAILY PO 09/02/17 09:00 09/03/17 08:29 Fentanyl Citrate 250 ml @ 5 mls/hr TITRATE PRN IV SEDATION 09/02/17 17:30 09/03/17 20:14 Levofloxacin/ Dextrose 50 ml @ 50 mls/hr Q24H IV 09/04/17 13:00 09/04/17 12:41 Labetalol HCl (Trandate Inj) 10 mg Q4H PRN IV PUSH SBP>160, DBP>90 09/03/17 22:00 09/04/17 12:41 Hydralazine HCl (Apresoline Inj) 20 mg Q4H PRN IV PUSH SBP>160, DBP>90 09/03/17 22:00 09/04/17 10:24 Objective: Vital Signs Date Time Temp Pulse Resp B/P (MAP) Pulse Ox O2 Delivery O2 Flow Rate FiO2 09/04/17 14:00 99 09/04/17 12:00 98.4 88 161/93 (115) 98 09/04/17 12:00 88 09/04/17 12:00 45 09/04/17 11:34 97 45 09/04/17 10:00 85 09/04/17 08:00 55 09/04/17 08:00 73 09/04/17 08:00 99.4 73 151/97 (115) 96 09/04/17 07:40 94 45 09/04/17 07:00 94 Mechanical Ventilator 55 09/04/17 06:00 75 09/04/17 04:00 60 09/04/17 04:00 98.1 76 139/85 (103) 97 09/04/17 04:00 76 09/04/17 03:45 94 55 09/04/17 02:00 72 09/04/17 01:35 96 55 09/04/17 00:00 73 09/04/17 00:00 60 09/04/17 00:00 97.8 73 146/91 (109) 97 09/03/17 22:09 95 60 09/03/17 22:00 73 09/03/17 20:04 95 50 09/03/17 20:00 60 09/03/17 20:00 98.1 86 163/106 (125) 97 09/03/17 20:00 86 09/03/17 19:00 98 Mechanical Ventilator 45 09/03/17 18:00 87 09/03/17 17:32 50 09/03/17 16:00 55 09/03/17 16:00 85 09/03/17 16:00 97.4 85 145/92 (109) 99 09/03/17 14:53 100 50 Laboratory Tests Test 09/03/17 06:02 09/04/17 04:13 White Blood Count 6.1 TH/MM3 9.5 TH/MM3 Red Blood Count 3.60 MIL/MM3 3.40 MIL/MM3 Hemoglobin 10.6 GM/DL 10.0 GM/DL Hematocrit 32.2 % 30.1 % Mean Corpuscular Volume 89.5 FL 88.6 FL Mean Corpuscular Hemoglobin 29.5 PG 29.5 PG Mean Corpuscular Hemoglobin Concent 33.0 % 33.3 % Red Cell Distribution Width 19.3 % 19.4 % Platelet Count 196 TH/MM3 228 TH/MM3 Mean Platelet Volume 7.9 FL 8.1 FL Neutrophils (%) (Auto) 94.5 % Lymphocytes (%) (Auto) 1.1 % Monocytes (%) (Auto) 3.9 % Eosinophils (%) (Auto) 0.0 % Basophils (%) (Auto) 0.5 % Neutrophils # (Auto) 9.0 TH/MM3 Lymphocytes # (Auto) 0.1 TH/MM3 Monocytes # (Auto) 0.4 TH/MM3 Eosinophils # (Auto) 0.0 TH/MM3 Basophils # (Auto) 0.0 TH/MM3 CBC Comment DIFF FINAL Differential Comment Laboratory Tests Test 09/03/17 06:02 09/04/17 04:13 Blood Urea Nitrogen 22 MG/DL 27 MG/DL Creatinine 1.15 MG/DL 1.07 MG/DL Random Glucose 196 MG/DL 190 MG/DL Calcium Level 7.8 MG/DL 7.7 MG/DL Sodium Level 142 MEQ/L 142 MEQ/L Potassium Level 3.2 MEQ/L 4.4 MEQ/L Chloride Level 101 MEQ/L 104 MEQ/L Carbon Dioxide Level 30.6 MEQ/L 29.2 MEQ/L Anion Gap 10 MEQ/L 9 MEQ/L Estimat Glomerular Filtration Rate 64 ML/MIN 70 ML/MIN Phosphorus Level 2.7 MG/DL IMAGING: Chest X-Ray 09/02/17 0000 Signed Impressions: Service Date/Time: Saturday, September 02, 2017 06:32 - CONCLUSION: Bilateral airspace disease with interval worsening in the left base. Possible developing left-sided effusion. Jaret Crouch MD Abdomen X-Ray 08/31/17 0000 Signed Impressions: Service Date/Time: Thursday, August 31, 2017 20:34 - CONCLUSION: 1. Nasogastric tube tip in distal stomach. David Jay MD CT Angiography 08/29/17 1849 Signed Impressions: Service Date/Time: Tuesday, August 29, 2017 19:36 - CONCLUSION: 1. Multilobar consolidation. 2. No evidence for pulmonary embolism. 3. Extensive coronary calcifications Pk Bae MD PHYSICAL EXAMINATION: GENERAL: On the ventilator. Sedated. HEENT: Pupils reactive to light. No icterus. Moist oral mucosa. NECK: No swelling. No adenopathy. LUNGS: Bilateral coarse rhonchi. HEART: Regular rate and rhythm. Slight systolic murmur at the left sternal border. ABDOMEN: Soft, nontender. EXTREMITIES: Ecchymosis at the right upper extremity. trace edema. No clubbing or cyanosis. SKIN: No diffuse rash. The skin is warm and moist. NEUROLOGIC: Unable to assess. PSYCHIATRIC: Unable to assess. IMPRESSION: 1. Bilateral pneumonia due to Pseudomonas. 2. Acute respiratory failure. 3. History of lung cancer. 4. One positive blood culture from 08/29 showing Staphylococcus species coagulase negative. Very likely contamination. RECOMMENDATIONS: 1. Continue piperacillin/tazobactam. 2. Continue Levaquin. 3. Monitor temperature. 4. Monitor clinical status. Hopefully can be extubated soon. Herve Zarate MD September 04, 2017 14:34
--- NOTE | 2017-09-04 14:50 | HHI.HCPN ---
Reason for visit a. To assist with evaluation and management of symptoms including: Shortness of breath, pain, debility b. To assist medical decision maker(s) with: better understanding of current medical conditions; weighing benefits/burdens of medical treatment options; making medical treatment decisions. Subjective/Interval History Follow up medically necessary for symptom management and further clarification of goals of care. Patient seen and examined on MICU. Patient remains intubated, on mechanical ventilation. Patient has his eyes open. Patient is currently on CPAP trials, Vent settings 15/45%. Patient is on propofol infusion at 5 mcg/kg /min and fentanyl infusion at 100 mcg/hr. Laboratory workup today revealing WBC 9.5, hemoglobin 10.0, hematocrit 30.1, platelet count 228, potassium 4.4, BUN/creatinine 27/1.07. No recent imaging. Physical therapy 09/04/17 consulted for evaluation and treatment. Infectious disease following. Attempted top address code status with patient. Asked patient to nodd head for "yes" and shake head for "no". Asked patient if he was in pain and he shook head for "no". Asked patient if he would want to be reintubated if he goes into respiratory distress after been medically or self extubated, at first patient nodded head for "yes" and then next time when asked the same question he shook head for "no". Patient responded with a "yes" and "no" answer when asked if he would want to be resuscitated if he was in cardiac arrest. Telephone conversation with patient`s [facility] Dahiana. Updated her on patient`s current medical status. Discussed patient`s trajectory of decline over the past few months and multiple hospitalizations. Discussed issues that patient may face if he`s even able to be medically extubated given that he has lung cancer, COPD, pneumonia and debility. Anticipatory guidance provided in the event that patient is not able to be medically extubated. Patient`s cousin is discussing with other family members regarding code status and is hoping to get an update from the medical team to be able to make informed decisions. Case discussed with bedside RN and Dr Colon . . Family/friend interactions Telephone conversation with patient`s [facility] Dahiana. . Advance Directives Health Care Surrogate: Copy in medical record Advance Directive Specifics Date completed: [facility] -April 08, 2017 . Health Care Surrogate(s): [facility]- (Long time friend-15 yrs) Kay Rizvi [phone]- (July 2017) Alternate HCS- Cousin- Dahiana Mayorga [phone] (will serve as HCS) . Objective Vital Signs Date Time Temp Pulse Resp B/P (MAP) Pulse Ox O2 Delivery O2 Flow Rate FiO2 09/04/17 12:00 98.4 88 161/93 (115) 98 09/04/17 12:00 88 09/04/17 12:00 45 09/04/17 11:34 97 45 09/04/17 10:00 85 09/04/17 08:00 55 09/04/17 08:00 73 09/04/17 08:00 99.4 73 151/97 (115) 96 09/04/17 07:40 94 45 09/04/17 07:00 94 Mechanical Ventilator 55 09/04/17 06:00 75 09/04/17 04:00 60 09/04/17 04:00 98.1 76 139/85 (103) 97 09/04/17 04:00 76 09/04/17 03:45 94 55 09/04/17 02:00 72 09/04/17 01:35 96 55 09/04/17 00:00 73 09/04/17 00:00 60 09/04/17 00:00 97.8 73 146/91 (109) 97 09/03/17 22:09 95 60 09/03/17 22:00 73 09/03/17 20:04 95 50 09/03/17 20:00 60 09/03/17 20:00 98.1 86 163/106 (125) 97 09/03/17 20:00 86 09/03/17 19:00 98 Mechanical Ventilator 45 09/03/17 18:00 87 09/03/17 17:32 50 09/03/17 16:00 55 09/03/17 16:00 85 09/03/17 16:00 97.4 85 145/92 (109) 99 09/03/17 14:53 100 50 Intake & Output 09/04/17 09/04/17 07:00 19:00 Intake Total 1356 ml 200 ml Output Total 500 ml Balance 856 ml 200 ml Intake IV Total 600 ml 200 ml Tube Irrigant 636 ml Other 120 ml Output Urine Total 500 ml # Bowel Movements 2 Physical Exam CONSTITUTIONAL/GENERAL: This is a chronically ill patient, intubated, on CPAP trials TUBES/LINES/DRAINS: ETT, NGT, PIV, SCDs, Dockery catheter, bilateral upper extremity soft restraints SKIN: No jaundice, rashes, or lesions. Ecchymoses on upper extremities. No wounds seen anteriorly. Not diaphoretic. HEAD: Atraumatic. Normocephalic. EYES: Pupils 2 mm, questionable reaction.No scleral icterus. No injection or drainage. Fundi not examined. ENT: Unable to assess Hearing. Nose without bleeding or purulent drainage. Moist oral mucosa CARDIOVASCULAR: S1-S2 normal, no murmurs, no JVD. peripheral pulses symmetric. RESPIRATORY/CHEST: Symmetric, unlabored respirations. Diminished in the bases. No wheezes, rales. GASTROINTESTINAL: Abdomen soft, non-tender, nondistended. Bowel sounds present. TF infusing via NGT GENITOURINARY: Without palpable bladder distension. Dockery catheter in place. MUSCULOSKELETAL: Extremities without clubbing, cyanosis. Edema to bilateral upper extremities. No mottling or clubbing. NEUROLOGICAL: Intubated, sedated on mechanical ventilation. Spontaneously moving all 4 extremities. PSYCHIATRIC: Unable to assess at this time. . Diagnostic Tests Laboratory Laboratory Tests Test 09/01/17 23:37 09/01/17 23:42 09/02/17 06:06 09/02/17 10:24 Hemoglobin 9.9 GM/DL (13.0-17.0) 10.2 GM/DL (13.0-17.0) Hematocrit 29.5 % (39.0-51.0) 30.7 % (39.0-51.0) Blood Gas Puncture Site RT RADIAL RT RADIAL Blood Gas Patient Temperature 98.6 98.6 Blood Gas HCO3 27 mmol/L (22-26) 29 mmol/L (22-26) Blood Gas Base Excess 2.4 mmol/L (-2-2) 4.6 mmol/L (-2-2) Blood Gas Oxygen Saturation 90 % (90-100) 87 % (90-100) Arterial Blood pH 7.42 (7.380-7.420) 7.41 (7.380-7.420) Arterial Blood Partial Pressure CO2 42 mmHg (38-42) 47 mmHg (38-42) Arterial Blood Partial Pressure O2 68 mmHg (61-120) 62 mmHg (61-120) Arterial Blood Oxygen Content 12.6 Vol % (12.0-20.0) 12.2 Vol % (12.0-20.0) Arterial Blood Carboxyhemoglobin 1.3 % (0-4) 1.2 % (0-4) Arterial Blood Methemoglobin 1.3 % (0-2) 1.2 % (0-2) Blood Gas Hemoglobin 9.9 G/DL (12.0-16.0) 10.0 G/DL (12.0-16.0) Oxygen Delivery Device VENTILATOR VENTILATOR Blood Gas Ventilator Setting [facility] Blood Gas Inspired Oxygen 90 % 80 % White Blood Count 11.8 TH/MM3 (4.0-11.0) Red Blood Count 3.47 MIL/MM3 (4.50-5.90) Mean Corpuscular Volume 88.6 FL (80.0-100.0) Mean Corpuscular Hemoglobin 29.5 PG (27.0-34.0) Mean Corpuscular Hemoglobin Concent 33.2 % (32.0-36.0) Red Cell Distribution Width 19.3 % (11.6-17.2) Platelet Count 209 TH/MM3 (150-450) Mean Platelet Volume 7.6 FL (7.0-11.0) Blood Urea Nitrogen 23 MG/DL (7-18) Creatinine 1.31 MG/DL (0.60-1.30) Random Glucose 178 MG/DL (74-106) Calcium Level 7.5 MG/DL (8.5-10.1) Phosphorus Level 3.6 MG/DL (2.5-4.9) Magnesium Level 2.1 MG/DL (1.5-2.5) Sodium Level 138 MEQ/L (136-145) Potassium Level 3.5 MEQ/L (3.5-5.1) Chloride Level 101 MEQ/L (98-107) Carbon Dioxide Level 28.2 MEQ/L (21.0-32.0) Anion Gap 9 MEQ/L (5-15) Estimat Glomerular Filtration Rate 55 ML/MIN (>89) Test 09/02/17 12:45 09/03/17 06:02 09/04/17 04:13 Hemoglobin 10.2 GM/DL (13.0-17.0) 10.6 GM/DL (13.0-17.0) 10.0 GM/DL (13.0-17.0) Hematocrit 30.8 % (39.0-51.0) 32.2 % (39.0-51.0) 30.1 % (39.0-51.0) White Blood Count 6.1 TH/MM3 (4.0-11.0) 9.5 TH/MM3 (4.0-11.0) Red Blood Count 3.60 MIL/MM3 (4.50-5.90) 3.40 MIL/MM3 (4.50-5.90) Mean Corpuscular Volume 89.5 FL (80.0-100.0) 88.6 FL (80.0-100.0) Mean Corpuscular Hemoglobin 29.5 PG (27.0-34.0) 29.5 PG (27.0-34.0) Mean Corpuscular Hemoglobin Concent 33.0 % (32.0-36.0) 33.3 % (32.0-36.0) Red Cell Distribution Width 19.3 % (11.6-17.2) 19.4 % (11.6-17.2) Platelet Count 196 TH/MM3 (150-450) 228 TH/MM3 (150-450) Mean Platelet Volume 7.9 FL (7.0-11.0) 8.1 FL (7.0-11.0) Blood Urea Nitrogen 22 MG/DL (7-18) 27 MG/DL (7-18) Creatinine 1.15 MG/DL (0.60-1.30) 1.07 MG/DL (0.60-1.30) Random Glucose 196 MG/DL (74-106) 190 MG/DL (74-106) Calcium Level 7.8 MG/DL (8.5-10.1) 7.7 MG/DL (8.5-10.1) Sodium Level 142 MEQ/L (136-145) 142 MEQ/L (136-145) Potassium Level 3.2 MEQ/L (3.5-5.1) 4.4 MEQ/L (3.5-5.1) Chloride Level 101 MEQ/L (98-107) 104 MEQ/L (98-107) Carbon Dioxide Level 30.6 MEQ/L (21.0-32.0) 29.2 MEQ/L (21.0-32.0) Anion Gap 10 MEQ/L (5-15) 9 MEQ/L (5-15) Estimat Glomerular Filtration Rate 64 ML/MIN (>89) 70 ML/MIN (>89) Neutrophils (%) (Auto) 94.5 % (16.0-70.0) Lymphocytes (%) (Auto) 1.1 % (9.0-44.0) Monocytes (%) (Auto) 3.9 % (0.0-8.0) Eosinophils (%) (Auto) 0.0 % (0.0-4.0) Basophils (%) (Auto) 0.5 % (0.0-2.0) Neutrophils # (Auto) 9.0 TH/MM3 (1.8-7.7) Lymphocytes # (Auto) 0.1 TH/MM3 (1.0-4.8) Monocytes # (Auto) 0.4 TH/MM3 (0-0.9) Eosinophils # (Auto) 0.0 TH/MM3 (0-0.4) Basophils # (Auto) 0.0 TH/MM3 (0-0.2) CBC Comment DIFF FINAL Differential Comment Phosphorus Level 2.7 MG/DL (2.5-4.9) Result Diagram: 09/04/17 0413 09/04/17 0413 Procedures 08/29/17-intubation 08/31/17-self extubation 08/31/17-reintubated . Assessment and Plan Disease Oriented Problem List: (1) Acute respiratory failure with hypoxia and hypercarbia (2) Lung cancer (3) Atrial fibrillation with RVR (4) Lung consolidation (5) COPD (chronic obstructive pulmonary disease) Symptom Scale: (1) Shortness of breath Comment: Hx of lung cancer. CT angiography revealed multilobar consolidation and no evidence for pulmonary embolism, extensive coronary calcifications. . (2) Pain Comment: Risk for pain-from procedure (intubation), bedbound status. . (3) Debility 0-10 Scale: Unable to quantify Comment: Progressive . Pertinent Non-Medical Issues Psychosocial:Patient was born and raised in [place]. He left [place] the age of 20. Patient moved to [place] in [place]. Patient has a 2 years college degree in [employer] technology. 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 Patient was and twice. He never had children. Spiritual:N zoroastrianism affiliation Legal:Patient has a [facility] form signed and completed a Community DNR Ethical issues impacting care:None identified at this time . Important Contacts Alternate [facility]- Cousin- Dahiana Mayorga [phone] Friend-Nemo [phone] [facility]- (Long time friend-15 yrs) Kay Rizvi [phone]- . Prognosis Mr Adams is a 61 years old male with a past medical history significant of lung cancer s/p radiation, COPD, hypertension, coronary artery disease and tobacco use. Patient presented to the ER via EMS on 08/29/17 complaining of shortness of breath that had started the night before, generalized malaise and weakness. Clinical course complicated with atrial fibrillation with RVR, and acute hypoxic and hypercapnic respiratory failure. Given ongoing comorbidities , patient remains at high risk for further complications, deterioration and decline. . Code Status: Full Code Plan PLAN: Legal decision maker: Patient is currently intubated, sedated on mechanical ventilation and is not able to participate in decision-making. Patient`s cousin Dahiana Mayorga whom he has designated as his alternate healthcare surrogate will make medical decisions for patient. Goals: Aggressive CODE STATUS: Full code Attempted top address code status with patient. Asked patient to nodd head for "yes" and shake head for "no". Asked patient if he was in pain and he shook head for "no". Asked patient if he would want to be reintubated if he goes into respiratory distress after been medically or self extubated, at first patient nodded head for "yes" and then next time when asked the same question he shook head for "no". Patient responded with a "yes" and "no" answer when asked if he would want to be resuscitated if he was in cardiac arrest. Telephone conversation with patient`s [facility] Dahiana. Updated her on patient`s current medical status. Discussed patient`s trajectory of decline over the past few months and multiple hospitalizations. Discussed issues that patient may face if he`s even able to be medically extubated given that he has lung cancer, COPD, pneumonia and debility. Anticipatory guidance provided in the event that patient is not able to be medically extubated. Patient`s cousin is discussing with other family members regarding code status and is hoping to get an update from the medical team to be able to make informed decisions. SYMPTOMS: * Shortness of breath: Patient has history of lung cancer, COPD and tobacco use. Patient presented with shortness of breath. Intubated 08/29, self extubated 08/31, reintubated 08/31 secondary to respiratory failure. Patient chest X-ray showing persistent 7 cm masslike area in the left hilum and diffuse interstitial disease with suspected subpulmonic left pleural effusion. Worsening chest x-ray today. Solu-Medrol and duo nebs prn. Currently on FiO2 45 % on CPAP trials. No recommendations at this time. * Pain: Patient is at risk for pain, required intubation in the ER. Currently bedbound. Fentanyl infusion restarted last night 09/02. Denies pain by shking head for "no". No recommendations at this time. * Debility: Progressive: Hx of lung cancer s/p radiation. Multiple hospitalizations. Patient may benefit from PT consultation if goals remain aggressive. . Palliative care will continue to follow the patient during hospital course as condition evolves, to assist patient/decision-maker with understanding of their medical conditions, weighing benefits/burdens of treatment options, for clarification of goals of treatment. Additionally will assist with any symptoms of palliative concern Attestation To help prompt me to consider important information that might be impacting today's encounter and assessment, information from prior notes written by myself or my colleagues may have been "brought forward" into today's note. My signature on this note, however, is an attestation that I personally performed the exam, history, and/or decision-making noted today, and, unless otherwise indicated, the interactions with patient, family, and staff as well as the review of records all occurred today. I also attest that the listed assessment and stated plan reflect my best clinical judgment today based on the combination of historical information, prior notes, and today's exam/ interactions. When time spent is documented, it refers only to time spent today by the signer, or if indicated, combined time spent today by collaborating physician/nurse practitioner. Randa Tenorio September 04, 2017 14:50
--- NOTE | 2017-09-04 15:09 | HHI.CCPN ---
Subjective Remarks/Hospital Course 08/29: This is a 61-year-old male with a history of lung cancer undergoing current chemotherapy and radiation who was recently admitted on 07/19 for aspiration pneumonia. During that admission he did have episodes of paroxysmal atrial fibrillation and had an echo from 04/2017 showing an EF of 50-55%. He represents today to the emergency department with acute shortness of breath since last night. Per the ER documentation, he denies any coughing, fever, chills, or other recent symptoms or changes other than the new dyspnea. In the emergency department he was found to be in A. fib with RVR. This initially converted to sinus rhythm 1 after diltiazem 20 mg IV bolus, but then very quickly went back into atrial for ablation with rapid ventricular response. 2 doses of adenosine were not able to convert it. The patient was loaded with amiodarone and infusion was started. After this, the patient become acutely hypoxemic requiring emergent intubation. Please refer to the emergency room physician documentation for additional details regarding the decompensation. When I came to evaluate patient, the patient was recently intubated, sedated. No additional information is available from the patient due to his clinical condition. Review of systems is unobtainable. Critical care medicine is consulted to evaluate manage his acute hypoxic respiratory failure along with his acute supraventricular tachycardia. 08/30: Patient remains intubated and sedated. FiO2 down to 0.5. Patient continues to be on amiodarone infusion and heparin drip. Sedation achieved with propofol and fentanyl. Patient remains hypothermic requiring Gracia hugger, urine output 350 mL's documented since admission. 08/31: No events over the night. Patient remains intubated and sedated. Hemoglobin more stable posttransfusion. Hypothermia resolved, T-max of 100.3. Urine output remains low, 635 mL's over the last 24 hours. Oxygenation is improved. No family present at bedside. Patient remains in sinus rhythm, on amiodarone infusion. No report of melena, hematochezia or coffee-ground aspirate from NG tube. Morning chest x-ray reviewed, worsening infiltrates over the right thorax, unchanged consolidation over the left. 09/01: Afebrile. Patient was extubated yesterday afternoon and emergently intubated 1030 last night secondary to hypoxemic respiratory failure. This x- ray pending this a.m.. The patient also was noted to have severe metabolic acidosis and sodium bicarbonate infusion was initiated. Patient noted to have Pseudomonas, and placed on Zosyn. Patient continues to have leukocytosis with worsening pneumonia ID has been consulted appreciate recommendations. Patient previously DNR palliative has been consulted up on hypoxemic respiratory failure patient was noted to request intubation at that time. Palliative care consult pending. Patient continues on amiodarone infusion now in sinus rhythm. Amiodarone infusion discontinued the patient continued on metoprolol and Cardizem home medications. Hemoglobin appears stable status post 2 units transfusion 48 hours ago. Will do serial H&H's aspirin reinitiated will hold Plavix for now, and continue to follow. Subcu heparin initiated. 09/02: Afebrile. Hemoglobin stable for the last 24 hours. Plan to restart tube feeds this a.m.. Metabolic acidosis resolved, patient's sodium bicarbonate discontinued. Patient requiring increasing FiO2 requirements during the night , now at 100% ABG pending. This am chest x-ray worsening. 09/03: Late entry note patient seen at 8:15 AM .afebrile. Chest x-ray continues to worsen. FiO2 requirement slightly decreased we will attempt CPAP trials today. 09/04: Afebrile. patient awake and following commands this a.m. Currently on CPAP trials. FiO2 weaned to 45% Objective Vital Signs Date Time Temp Pulse Resp B/P (MAP) Pulse Ox O2 Delivery O2 Flow Rate FiO2 09/04/17 14:00 99 09/04/17 12:00 98.4 161/93 (115) 98 09/04/17 12:00 45 09/04/17 07:00 Mechanical Ventilator 09/03/17 12:00 20 08/31/17 16:15 15.00 Intake and Output 09/04/17 09/04/17 09/05/17 08:00 16:00 00:00 Intake Total 956 ml 200 ml Output Total 500 ml Balance 456 ml 200 ml Result Diagram: 09/04/17 0413 09/04/17 0413 Imaging Last Impressions Chest X-Ray 09/02/17 0000 Signed Impressions: Service Date/Time: Saturday, September 02, 2017 06:32 - CONCLUSION: Bilateral airspace disease with interval worsening in the left base. Possible developing left-sided effusion. Jaret Crouch MD Abdomen X-Ray 08/31/17 0000 Signed Impressions: Service Date/Time: Thursday, August 31, 2017 20:34 - CONCLUSION: 1. Nasogastric tube tip in distal stomach. David Jay MD CT Angiography [id number]/29/171848 Signed Impressions: Service Date/Time: Tuesday, August 29, 2017 19:36 - CONCLUSION: 1. Multilobar consolidation. 2. No evidence for pulmonary embolism. 3. Extensive coronary calcifications Pk Bae MD Last 24 hours Impressions Chest X-Ray 08/31/17 0600 Signed Impressions: Service Date/Time: Thursday, August 31, 2017 02:57 - CONCLUSION: 1. Worsening airspace disease throughout the right lung. 2. Stable left perihilar consolidation with some developing left basilar atelectasis. Jaret Crouch MD Last Impressions CT Angiography [id number]/29/171848 Signed Impressions: Service Date/Time: Tuesday, August 29, 2017 19:36 - CONCLUSION: 1. Multilobar consolidation. 2. No evidence for pulmonary embolism. 3. Extensive coronary calcifications Pk Bae MD Chest X-Ray 08/29/17 1831 Signed Impressions: Service Date/Time: Tuesday, August 29, 2017 18:37 - CONCLUSION: 1. ET tube and NG tube in good position. 2. Mass like area versus consolidation seen in the left perihilar region. 3. Diffuse increased interstitial markings likely related to edema. Dmitri Echeverria MD Objective Remarks General - elderly gentleman, intubated and sedated propofol and fentanyl, chronically ill-appearing HEENT - pupils equal, reactive, sclerae anicteric, neck supple, no nuchal rigidity, neck veins not distended, no carotid bruit, orally intubated CV - regular S1, S2, no murmurs Chest - diffuse coarse breath sounds b/l, good air entry, no wheezes Abdomen - soft, appears non-tender, non-distended, BS present, no hepatomegaly, no splenomegaly Skin - no rashes, no cyanosis Extremities - warm and well perfused, no edema, + peripheral pulses, no clubbing Neuro - RASS -2. intubated and sedated, pupils are equal and reactive, following commands on light sedation propofol 15 mcgs, fentanyl 50 mcgs A/P Problem List: (1) OBED (acute kidney injury) ICD Code: N17.9 - Acute kidney failure, unspecified (2) Severe protein-calorie malnutrition ICD Code: E43 - Unspecified severe protein-calorie malnutrition Status: Chronic (3) Shortness of breath ICD Code: R06.02 - Shortness of breath Status: Acute (4) Tobacco abuse ICD Code: Z72.0 - Tobacco use Status: Chronic (5) Paroxysmal A-fib ICD Code: I48.0 - Paroxysmal atrial fibrillation Status: Chronic (6) Atrial fibrillation with RVR ICD Code: I48.91 - Unspecified atrial fibrillation Status: Resolved (7) PNA (pneumonia) ICD Code: J18.9 - Pneumonia, unspecified organism (8) COPD (chronic obstructive pulmonary disease) ICD Code: J44.9 - Chronic obstructive pulmonary disease, unspecified (9) Lung cancer ICD Code: C34.90 - Malignant neoplasm of unspecified part of unspecified bronchus or lung (10) Debility ICD Code: R53.81 - Other malaise Status: Chronic (11) Pain ICD Code: R52 - Pain, unspecified Status: Chronic (12) Lung consolidation ICD Code: J18.1 - Lobar pneumonia, unspecified organism Status: Acute (13) Acute respiratory failure with hypoxia and hypercarbia ICD Code: J96.01 - Acute respiratory failure with hypoxia; J96.02 - Acute respiratory failure with hypercapnia Assessment and Plan Plan by systems: Neurologic: Hypothermia-resolved Daily sedation vacation Tylenol 650 mg every 6 hours as needed for temp greater than 101.5 Continue propofol infusion to maintain ventilator synchrony Respiratory: Possible pneumonia +/-radiation pneumonitis Lung cancer undergoing concurrent radiation therapy and chemotherapy Acute COPD exacerbation Acute hypoxemic and hypercapnic respiratory failure Maintain O2 sat greater than 92% 09/03 chest [id number] Ventilator bundle Continue CPAP trials Duo nebs every 6 hours scheduled and every 2 hours as needed-Xopenex, and ipratropium Methylprednisolone 40 mg every 8 hours Cardiovascular: A. fib RVR-resolved Maintain MAP greater than 65 09/01-amiodarone infusion discontinued 09/01 Resumed patient's Cardizem 60 mg every 6 hours and bisoprolol 50 mg twice daily 09/01 Lovastatin 10 mg daily, aspirin 81 mg continued Renal: AK I -- Strict I/Os FEN/GI: Electrolyte abnormality Severe metabolic acidosis-resolved Resume home med Lasix 20 mg/day Sodium bicarbonate infusion discontinued Dietary consult initiated -begin tube feeds 09/02 Bowel regimen-no bowel movement since admission to hospital Lactulose 30 mL daily Zofran for nausea Protonix for GI prophylaxis Hypokalemia-repletion potassium with 80 meq Heme/ID: Gram-positive bacteremia Acute blood loss anemia-resolved 08/31 Heparin infusion discontinued 09/01 no active signs of bleeding, hematuria resolved, subcu heparin initiated ID following-antibiotics per ID recommendation level Levaquin and vancomycin Sputum- Pseudomonas Blood- MSSA (contaminant?) Endocrine: Glucose monitoring per ICU protocol -- SSI Prophylaxis: GI Prophylaxis Protonix DVT Prophylaxis -- SCDs Heparin SQ BID Lines: Peripheral IVs x 2. Central line if indicated. Dispo: Level 3 Follow-up palliative care team recommendations-patient remains a full code at this time. Discussed with Ms. eTnorio, palliative care collection team lead. Family meeting scheduled evening with POA and cousin Patient remains very ill at high risk for further decompensation and . Problem Qualifiers (1) PNA (pneumonia): Qualified Codes: J18.1 - Lobar pneumonia, unspecified organism Elba Colon MD September 04, 2017 15:09
[2017-09-04] MEDS: fentaNYL DRIP 250 ML IV PRN (23:39)
[2017-09-05] VITALS (20 sets, daily range): BP systolic 146–179; BP diastolic 82–103; PULSE 75–97; RESP 18–22; TEMP 98.5–99.3; O2SAT 93–100
[2017-09-05] MEDS: hydrALAZINE HCL 20 MG/ML VIAL IV PUSH PRN ×2 (00:39→20:28)
[2017-09-05] MEDS: PIPERACIL-TAZO 4.5 GM PREMIX 100 ML IV SCH ×4 (01:11→20:11)
[2017-09-05] MEDS: RESP: IPRATROPIUM 0.5 MG/2.5 ML NEB NEB SCH ×4 (02:53→19:51)
[2017-09-05] MEDS: DILTIAZEM HCL 60 MG TAB PO SCH ×3 (02:56→14:02)
[2017-09-05] MEDS: CHLORHEXIDINE GLUCONATE 2 % 1 PACK (2 CLOTHS) TOP SCH (03:00)
[2017-09-05] MEDS: LABETALOL HCL 100 MG/20 ML VIAL IV PUSH PRN ×3 (03:02→17:45)
--- NOTE | 2017-09-05 05:15 | RADRPT ---
EXAM DATE/TIME: 09/05/2017 03:08 [facility] COMPARISON: CT PULMONARY ANGIOGRAM, April 05, 2017, 20:05. CHEST PA & LAT, July 20, 2017, 14:07. CHEST SING LE AP, August 29, 2017, 15:50. CHEST SINGLE AP, September 02, 2017, 6:32. INDICATIONS : Shortness of breath, possible pulmonary disease. MEDICAL HISTORY : Hypertension. Chronic obstructive pulmonary disease. Carcinoma, lung. SURGICAL HISTORY : None. ENCOUNTER: Subsequent ACUITY: 1 week PAIN SCORE: Non-responsive. LOCATION: Bilateral chest FINDINGS: Endotracheal tube and nasogastric tube are stable in good position. There has been slight improvement in aeration with decrease in confluence of bilateral infiltrates. Left perihilar mass or infiltrate persists unchanged CONCLUSION: Slight improvement in aeration Dmitri Mohan MD on September 05, 2017 at 5:12 Board Certified Radiologist. This report was verified electronically.
[2017-09-05] MEDS: methylPREDNISolone SOD SUCC 40 MG/1 ML VIAL IV PUSH SCH ×2 (05:20→13:59)
[2017-09-05] MEDS: INSULIN NovoLIN REGULAR SUPPLEMENTAL SCALE SQ SCH ×3 (05:20→17:43)
[2017-09-05 05:25] LABS: HEMATOCRIT 31.8 % (39.0-51.0); HEMOGLOBIN 10.3 GM/DL (13.0-17.0); MEAN CELL VOLUME 89.3 FL (80.0-100.0); MEAN CORPUSCULAR HGB CONC 32.5 % (32.0-36.0); MEAN PLATELET VOLUME 7.8 FL (7.0-11.0); PLATELET COUNT 230 TH/MM3 (150-450); RED BLOOD COUNT 3.56 MIL/MM3 (4.50-5.90); RED CELL DISTRIBUTION WIDTH 19.1 % (11.6-17.2); WHITE BLOOD COUNT 10.4 TH/MM3 (4.0-11.0)
[2017-09-05 05:41] LABS: CREATININE 1.05 MG/DL (0.60-1.30); MAGNESIUM 2.2 MG/DL (1.5-2.5)
[2017-09-05 05:42] LABS: PHOSPHORUS 2.5 MG/DL (2.5-4.9)
[2017-09-05] MEDS: ASPIRIN 81 MG CHEW TAB CHEW SCH (08:11)
[2017-09-05] MEDS: CHLORHEXIDINE 0.12% (ORAL KIT) 15 ML CUP MT SCH ×2 (08:11→20:11)
[2017-09-05] MEDS: HEPARIN SODIUM - SQ 10,000 UNITS/ML VIAL SQ SCH ×2 (08:11→20:11)
[2017-09-05] MEDS: METOPROLOL TARTRATE 50 MG TAB PO SCH ×2 (08:11→20:11)
[2017-09-05] MEDS: PRAVASTATIN SOD 10 MG TAB PO SCH (08:11)
[2017-09-05] MEDS: DOCUSATE SODIUM 50 MG/SENNA 8.6 MG TAB PO SCH ×2 (08:12→20:11)
[2017-09-05] MEDS: LACTULOSE SYRUP 20 GM/30 ML CUP PO SCH (08:12)
[2017-09-05] MEDS: BUDESONIDE-FORMOTEROL 160/4.5 MCG INHALER INH SCH ×3 (08:13→19:59)
[2017-09-05] MEDS: PROPOFOL 1000 MG/100 ML INJ 100 ML IV PRN ×2 (08:17→16:53)
[2017-09-05] MEDS: PANTOPRAZOLE SODIUM 40 MG VIAL IV PUSH SCH (12:47)
[2017-09-05] MEDS: LEVOFLOXACIN 250 MG PREMIX INJ 50 ML IV SCH (12:47)
--- NOTE | 2017-09-05 14:26 | HHI.CCPN ---
Subjective Remarks/Hospital Course 08/29: This is a 61-year-old male with a history of lung cancer undergoing current chemotherapy and radiation who was recently admitted on 07/19 for aspiration pneumonia. During that admission he did have episodes of paroxysmal atrial fibrillation and had an echo from 04/2017 showing an EF of 50-55%. He represents today to the emergency department with acute shortness of breath since last night. Per the ER documentation, he denies any coughing, fever, chills, or other recent symptoms or changes other than the new dyspnea. In the emergency department he was found to be in A. fib with RVR. This initially converted to sinus rhythm 1 after diltiazem 20 mg IV bolus, but then very quickly went back into atrial for ablation with rapid ventricular response. 2 doses of adenosine were not able to convert it. The patient was loaded with amiodarone and infusion was started. After this, the patient become acutely hypoxemic requiring emergent intubation. Please refer to the emergency room physician documentation for additional details regarding the decompensation. When I came to evaluate patient, the patient was recently intubated, sedated. No additional information is available from the patient due to his clinical condition. Review of systems is unobtainable. Critical care medicine is consulted to evaluate manage his acute hypoxic respiratory failure along with his acute supraventricular tachycardia. 08/30: Patient remains intubated and sedated. FiO2 down to 0.5. Patient continues to be on amiodarone infusion and heparin drip. Sedation achieved with propofol and fentanyl. Patient remains hypothermic requiring Gracia hugger, urine output 350 mL's documented since admission. 08/31: No events over the night. Patient remains intubated and sedated. Hemoglobin more stable posttransfusion. Hypothermia resolved, T-max of 100.3. Urine output remains low, 635 mL's over the last 24 hours. Oxygenation is improved. No family present at bedside. Patient remains in sinus rhythm, on amiodarone infusion. No report of melena, hematochezia or coffee-ground aspirate from NG tube. Morning chest x-ray reviewed, worsening infiltrates over the right thorax, unchanged consolidation over the left. 09/01: Afebrile. Patient was extubated yesterday afternoon and emergently intubated 1030 last night secondary to hypoxemic respiratory failure. This x- ray pending this a.m.. The patient also was noted to have severe metabolic acidosis and sodium bicarbonate infusion was initiated. Patient noted to have Pseudomonas, and placed on Zosyn. Patient continues to have leukocytosis with worsening pneumonia ID has been consulted appreciate recommendations. Patient previously DNR palliative has been consulted up on hypoxemic respiratory failure patient was noted to request intubation at that time. Palliative care consult pending. Patient continues on amiodarone infusion now in sinus rhythm. Amiodarone infusion discontinued the patient continued on metoprolol and Cardizem home medications. Hemoglobin appears stable status post 2 units transfusion 48 hours ago. Will do serial H&H's aspirin reinitiated will hold Plavix for now, and continue to follow. Subcu heparin initiated. 09/02: Afebrile. Hemoglobin stable for the last 24 hours. Plan to restart tube feeds this a.m.. Metabolic acidosis resolved, patient's sodium bicarbonate discontinued. Patient requiring increasing FiO2 requirements during the night , now at 100% ABG pending. This am chest x-ray worsening. 09/03: Late entry note patient seen at 8:15 AM .afebrile. Chest x-ray continues to worsen. FiO2 requirement slightly decreased we will attempt CPAP trials today. 09/04: Afebrile. patient awake and following commands this a.m. Currently on CPAP trials. FiO2 weaned to 45% 09/05: Afebrile. Patient tolerating CPAP trials. She noted to have elevated blood glucose level secondary methylprednisolone. Chest x-ray now improving methylprednisolone taper initiated. Patient noted to still have episodes of hypertension Cardizem increased to 90 mg every 6 hours. Objective Vital Signs Date Time Temp Pulse Resp B/P (MAP) Pulse Ox O2 Delivery O2 Flow Rate FiO2 09/05/17 10:51 96 45 09/05/17 10:00 80 09/05/17 08:00 98.5 22 179/103 (128) 09/05/17 07:00 Mechanical Ventilator Intake and Output 09/05/17 09/05/17 09/05/17 07:59 15:59 23:59 Intake Total 780 ml Output Total 750 ml Balance 30 ml Result Diagram: 09/05/17 0447 09/05/17 0447 Imaging Last Impressions Chest X-Ray 09/05/17 0600 Signed Impressions: Service Date/Time: Tuesday, September 05, 2017 03:08 - CONCLUSION: Slight improvement in aeration Dmitri Mohan MD Abdomen X-Ray 08/31/17 0000 Signed Impressions: Service Date/Time: Thursday, August 31, 2017 20:34 - CONCLUSION: 1. Nasogastric tube tip in distal stomach. David Jay MD CT Angiography 08/29/171848 Signed Impressions: Service Date/Time: Tuesday, August 29, 2017 19:36 - CONCLUSION: 1. Multilobar consolidation. 2. No evidence for pulmonary embolism. 3. Extensive coronary calcifications Pk Bae MD Last Impressions Chest X-Ray 09/02/17 0000 Signed Impressions: Service Date/Time: Saturday, September 02, 2017 06:32 - CONCLUSION: Bilateral airspace disease with interval worsening in the left base. Possible developing left-sided effusion. Jaret Crouch MD Abdomen X-Ray 08/31/17 0000 Signed Impressions: Service Date/Time: Thursday, August 31, 2017 20:34 - CONCLUSION: 1. Nasogastric tube tip in distal stomach. David Jay MD CT Angiography 08/29/171848 Signed Impressions: Service Date/Time: Tuesday, August 29, 2017 19:36 - CONCLUSION: 1. Multilobar consolidation. 2. No evidence for pulmonary embolism. 3. Extensive coronary calcifications Pk Bae MD Last 24 hours Impressions Chest X-Ray 08/31/17 0600 Signed Impressions: Service Date/Time: Thursday, August 31, 2017 02:57 - CONCLUSION: 1. Worsening airspace disease throughout the right lung. 2. Stable left perihilar consolidation with some developing left basilar atelectasis. Jaret Crouch MD Last Impressions CT Angiography 08/29/17 184 Signed Impressions: Service Date/Time: Tuesday, August 29, 2017 19:36 - CONCLUSION: 1. Multilobar consolidation. 2. No evidence for pulmonary embolism. 3. Extensive coronary calcifications Pk Bae MD Chest X-Ray 08/29/17 1831 Signed Impressions: Service Date/Time: Tuesday, August 29, 2017 18:37 - CONCLUSION: 1. ET tube and NG tube in good position. 2. Mass like area versus consolidation seen in the left perihilar region. 3. Diffuse increased interstitial markings likely related to edema. Dmitri Echeverria MD Objective Remarks General - elderly gentleman, intubated and sedated propofol and fentanyl, chronically ill-appearing HEENT - pupils equal, reactive, sclerae anicteric, neck supple, no nuchal rigidity, neck veins not distended, no carotid bruit, orally intubated CV - regular S1, S2, no murmurs Chest - diffuse coarse breath sounds b/l, good air entry, no wheezes Abdomen - soft, appears non-tender, non-distended, BS present, no hepatomegaly, no splenomegaly Skin - no rashes, no cyanosis Extremities - warm and well perfused, no edema, + peripheral pulses, no clubbing Neuro - RASS -2. intubated and sedated, pupils are equal and reactive, following commands on light sedation propofol 15 mcgs, fentanyl 50 mcgs A/P Problem List: (1) OBED (acute kidney injury) ICD Code: N17.9 - Acute kidney failure, unspecified (2) Severe protein-calorie malnutrition ICD Code: E43 - Unspecified severe protein-calorie malnutrition Status: Chronic (3) Shortness of breath ICD Code: R06.02 - Shortness of breath Status: Acute (4) Tobacco abuse ICD Code: Z72.0 - Tobacco use Status: Chronic (5) Paroxysmal A-fib ICD Code: I48.0 - Paroxysmal atrial fibrillation Status: Chronic (6) Atrial fibrillation with RVR ICD Code: I48.91 - Unspecified atrial fibrillation Status: Resolved (7) PNA (pneumonia) ICD Code: J18.9 - Pneumonia, unspecified organism (8) COPD (chronic obstructive pulmonary disease) ICD Code: J44.9 - Chronic obstructive pulmonary disease, unspecified (9) Lung cancer ICD Code: C34.90 - Malignant neoplasm of unspecified part of unspecified bronchus or lung (10) Debility ICD Code: R53.81 - Other malaise Status: Chronic (11) Pain ICD Code: R52 - Pain, unspecified Status: Chronic (12) Lung consolidation ICD Code: J18.1 - Lobar pneumonia, unspecified organism Status: Acute (13) Acute respiratory failure with hypoxia and hypercarbia ICD Code: J96.01 - Acute respiratory failure with hypoxia; J96.02 - Acute respiratory failure with hypercapnia Assessment and Plan Plan by systems: Neurologic: Hypothermia-resolved Daily sedation vacation Tylenol 650 mg every 6 hours as needed for temp greater than 101.5 Continue propofol infusion to maintain ventilator synchrony Respiratory: Possible pneumonia +/-radiation pneumonitis Lung cancer undergoing concurrent radiation therapy and chemotherapy Acute COPD exacerbation Acute hypoxemic and hypercapnic respiratory failure Maintain O2 sat greater than 92% 09/03 chest [id number] Ventilator bundle Continue CPAP trials Duo nebs every 6 hours scheduled and every 2 hours as needed-Xopenex, and ipratropium Methylprednisolone 40 mg taper to every 12 hours Cardiovascular: A. fib RVR-resolved Maintain MAP greater than 65 09/01-amiodarone infusion discontinued 09/01 Bisoprolol 50 mg twice daily. Cardizem increased to 90 mg 4 times daily 09/01 Lovastatin 10 mg daily, aspirin 81 mg continued Renal: AK I -- Strict I/Os FEN/GI: Electrolyte abnormality Severe metabolic acidosis-resolved Resume home med Lasix 20 mg/day Dietary consult initiated -begin tube feeds 09/02 Bowel regimen-no bowel movement since admission to hospital Lactulose 30 mL daily Zofran for nausea Protonix for GI prophylaxis Heme/ID: Gram-positive bacteremia Acute blood loss anemia-resolved 08/31 Heparin infusion discontinued 09/01 no active signs of bleeding, hematuria resolved, subcu heparin initiated ID following-antibiotics per ID recommendation level Levaquin and vancomycin Sputum- Pseudomonas Blood- MSSA (contaminant?) Endocrine: Glucose monitoring per ICU protocol -- SSI Prophylaxis: GI Prophylaxis Protonix DVT Prophylaxis -- SCDs Heparin SQ BID Lines: Peripheral IVs x 2. Central line if indicated. Dispo: Level 3 Follow-up palliative care team recommendations-patient remains a full code at this time. Ms. Tenorio, palliative care team sports sales associate following. Family meeting scheduled evening with POA and cousin. Consideration of comfort care measures in process with family. Patient remains very ill at high risk for further decompensation and . Physician Elba Colon Problem Qualifiers (1) PNA (pneumonia): Qualified Codes: J18.1 - Lobar pneumonia, unspecified organism Elba Colon MD September 05, 2017 14:26
[2017-09-05] MEDS: DILTIAZEM HCL 90 MG TAB PO SCH ×2 (14:43→20:11)
[2017-09-05] MEDS: fentaNYL DRIP 250 ML IV PRN (18:08)
[2017-09-06] VITALS (20 sets, daily range): BP systolic 118–166; BP diastolic 72–100; PULSE 66–154; RESP 18–24; TEMP 97.6–99; O2SAT 94–100
[2017-09-06] MEDS: INSULIN NovoLIN REGULAR SUPPLEMENTAL SCALE SQ SCH ×4 (00:30→17:09)
[2017-09-06] MEDS: PIPERACIL-TAZO 4.5 GM PREMIX 100 ML IV SCH ×4 (02:18→20:29)
[2017-09-06] MEDS: DILTIAZEM HCL 90 MG TAB PO SCH ×4 (02:19→20:29)
[2017-09-06] MEDS: methylPREDNISolone SOD SUCC 40 MG/1 ML VIAL IV PUSH SCH ×2 (02:19→14:54)
[2017-09-06] MEDS: RESP: IPRATROPIUM 0.5 MG/2.5 ML NEB NEB SCH ×2 (03:19→09:44)
--- NOTE | 2017-09-06 03:59 | RADRPT ---
EXAM DATE/TIME: 09/06/2017 03:03 [facility] COMPARISON: CT PULMONARY ANGIOGRAM, August 29, 2017, 19:36. CHEST SINGLE AP, September 05, 2017, 3:08. INDICATIONS : Shortness of breath, possible pulmonary disease. MEDICAL HISTORY : Hypertension. Chronic obstructive pulmonary disease. Carcinoma, lung. SURGICAL HISTORY : None. ENCOUNTER: Subsequent ACUITY: 1 week PAIN SCORE: Non-responsive. LOCATION: Bilateral chest FINDINGS: Endotracheal tube and nasogastric tube are stable. There is been slight decrease in left perihilar co nsolidative changes and slight decrease in confluence of infiltrate on the right. Area contours are g rossly unchanged. CONCLUSION: Improving aeration Dmitri Mohan MD on September 06, 2017 at 3:56 Board Certified Radiologist. This report was verified electronically.
[2017-09-06] MEDS: CHLORHEXIDINE GLUCONATE 2 % 1 PACK (2 CLOTHS) TOP SCH (04:00)
[2017-09-06] MEDS: PROPOFOL 1000 MG/100 ML INJ 100 ML IV PRN ×2 (04:01→13:27)
[2017-09-06 05:50] LABS: AUTOMATED NEUTROPHIL # 13.3 TH/MM3 (1.8-7.7); BASOPHIL % 0.2 % (0.0-2.0); HEMATOCRIT 33.6 % (39.0-51.0); HEMOGLOBIN 10.9 GM/DL (13.0-17.0); LYMPH % 0.9 % (9.0-44.0); LYMPHOCYTE # 0.1 TH/MM3 (1.0-4.8); MEAN CELL VOLUME 89.7 FL (80.0-100.0); MEAN CORPUSCULAR HGB CONC 32.3 % (32.0-36.0); MONOCYTE # 0.7 TH/MM3 (0-0.9); NEUT % 93.9 % (16.0-70.0); PLATELET COUNT 253 TH/MM3 (150-450); RED BLOOD COUNT 3.74 MIL/MM3 (4.50-5.90); RED CELL DISTRIBUTION WIDTH 19.2 % (11.6-17.2); WHITE BLOOD COUNT 14.2 TH/MM3 (4.0-11.0)
[2017-09-06 06:21] LABS: BICARBONATE 31.9 MEQ/L (21.0-32.0); CREATININE 1.01 MG/DL (0.60-1.30); MAGNESIUM 2.4 MG/DL (1.5-2.5); PHOSPHORUS 2.6 MG/DL (2.5-4.9)
[2017-09-06] MEDS: LABETALOL HCL 100 MG/20 ML VIAL IV PUSH PRN ×2 (06:52→11:12)
[2017-09-06] MEDS: CHLORHEXIDINE 0.12% (ORAL KIT) 15 ML CUP MT SCH ×2 (07:49→20:28)
[2017-09-06] MEDS: METOPROLOL TARTRATE 50 MG TAB PO SCH ×2 (08:20→20:29)
[2017-09-06] MEDS: DOCUSATE SODIUM 50 MG/SENNA 8.6 MG TAB PO SCH ×2 (08:20→20:29)
[2017-09-06] MEDS: ASPIRIN 81 MG CHEW TAB CHEW SCH (08:20)
[2017-09-06] MEDS: HEPARIN SODIUM - SQ 10,000 UNITS/ML VIAL SQ SCH (08:20)
[2017-09-06] MEDS: PRAVASTATIN SOD 10 MG TAB PO SCH (08:20)
[2017-09-06] MEDS: LACTULOSE SYRUP 20 GM/30 ML CUP PO SCH (08:20)
[2017-09-06] MEDS: BUDESONIDE-FORMOTEROL 160/4.5 MCG INHALER INH SCH (09:44)
[2017-09-06] MEDS: PANTOPRAZOLE SODIUM 40 MG VIAL IV PUSH SCH (11:50)
[2017-09-06] MEDS ORDERED: ADENOSINE IV SOLN 3 MG/ML 2 ML VIAL ONE (12:17)
[2017-09-06] MEDS ORDERED: AMIODARONE INJ 150 MG in DEXTROSE 5% IN WATER 100ML INJ 97 ML IV ONE ×2 (12:23)
--- NOTE | 2017-09-06 12:26 | HHI.CCPN ---
Subjective Remarks/Hospital Course 08/29: This is a 61-year-old male with a history of lung cancer undergoing current chemotherapy and radiation who was recently admitted on 07/19 for aspiration pneumonia. During that admission he did have episodes of paroxysmal atrial fibrillation and had an echo from 04/2017 showing an EF of 50-55%. He represents today to the emergency department with acute shortness of breath since last night. Per the ER documentation, he denies any coughing, fever, chills, or other recent symptoms or changes other than the new dyspnea. In the emergency department he was found to be in A. fib with RVR. This initially converted to sinus rhythm 1 after diltiazem 20 mg IV bolus, but then very quickly went back into atrial for ablation with rapid ventricular response. 2 doses of adenosine were not able to convert it. The patient was loaded with amiodarone and infusion was started. After this, the patient become acutely hypoxemic requiring emergent intubation. Please refer to the emergency room physician documentation for additional details regarding the decompensation. When I came to evaluate patient, the patient was recently intubated, sedated. No additional information is available from the patient due to his clinical condition. Review of systems is unobtainable. Critical care medicine is consulted to evaluate manage his acute hypoxic respiratory failure along with his acute supraventricular tachycardia. 08/30: Patient remains intubated and sedated. FiO2 down to 0.5. Patient continues to be on amiodarone infusion and heparin drip. Sedation achieved with propofol and fentanyl. Patient remains hypothermic requiring Gracia hugger, urine output 350 mL's documented since admission. 08/31: No events over the night. Patient remains intubated and sedated. Hemoglobin more stable posttransfusion. Hypothermia resolved, T-max of 100.3. Urine output remains low, 635 mL's over the last 24 hours. Oxygenation is improved. No family present at bedside. Patient remains in sinus rhythm, on amiodarone infusion. No report of melena, hematochezia or coffee-ground aspirate from NG tube. Morning chest x-ray reviewed, worsening infiltrates over the right thorax, unchanged consolidation over the left. 09/01: Afebrile. Patient was extubated yesterday afternoon and emergently intubated 1030 last night secondary to hypoxemic respiratory failure. This x- ray pending this a.m.. The patient also was noted to have severe metabolic acidosis and sodium bicarbonate infusion was initiated. Patient noted to have Pseudomonas, and placed on Zosyn. Patient continues to have leukocytosis with worsening pneumonia ID has been consulted appreciate recommendations. Patient previously DNR palliative has been consulted up on hypoxemic respiratory failure patient was noted to request intubation at that time. Palliative care consult pending. Patient continues on amiodarone infusion now in sinus rhythm. Amiodarone infusion discontinued the patient continued on metoprolol and Cardizem home medications. Hemoglobin appears stable status post 2 units transfusion 48 hours ago. Will do serial H&H's aspirin reinitiated will hold Plavix for now, and continue to follow. Subcu heparin initiated. 09/02: Afebrile. Hemoglobin stable for the last 24 hours. Plan to restart tube feeds this a.m.. Metabolic acidosis resolved, patient's sodium bicarbonate discontinued. Patient requiring increasing FiO2 requirements during the night , now at 100% ABG pending. This am chest x-ray worsening. 09/03: Late entry note patient seen at 8:15 AM .afebrile. Chest x-ray continues to worsen. FiO2 requirement slightly decreased we will attempt CPAP trials today. 09/04: Afebrile. patient awake and following commands this a.m. Currently on CPAP trials. FiO2 weaned to 45% 09/05: Afebrile. Patient tolerating CPAP trials. She noted to have elevated blood glucose level secondary methylprednisolone. Chest x-ray now improving methylprednisolone taper initiated. Patient noted to still have episodes of hypertension Cardizem increased to 90 mg every 6 hours. Subjective 09/06: Patient currently in a flutter. Received adenosine 12 mg 1 which feels a flutter. Echocardiogram CPK and troponin ordered. TSH normal during this hospitalization. Potassium magnesium both normalized. Arousable and follows commands. Objective Vital Signs Date Time Temp Pulse Resp B/P (MAP) Pulse Ox O2 Delivery O2 Flow Rate FiO2 09/06/17 11:34 45 09/06/17 10:23 98 09/06/17 10:00 77 09/06/17 08:00 99.0 24 166/96 (119) 09/06/17 07:00 Mechanical Ventilator Intake and Output 09/06/17 09/06/17 09/07/17 08:00 16:00 00:00 Intake Total 681 ml 98 ml Output Total 1000 ml Balance -319 ml 98 ml Result Diagram: 09/06/17 0505 09/06/17 0505 Other Results Microbiology Date/Time Source Procedure Growth Status 08/29/17 20:40 Blood Peripheral Aerobic Blood Culture - Final Staphylococcus Hominis-Hominis Complete 08/29/17 20:40 Blood Peripheral Anaerobic Blood Culture - Final NO GROWTH IN 5 DAYS Complete 08/30/17 04:45 Sputum Endotracheal Gram Stain - Final Complete 08/30/17 04:45 Sputum Culture - Final Pseudomonas Aeruginosa Complete 08/29/17 19:10 Urine Catheterized Urine Streptococcus pneumoniae Antigen (M - Final PRESUMPTIVE NEGATIVE FOR STREPTOCOCCU... Complete Imaging Last Impressions Chest X-Ray 09/06/17 0600 Signed Impressions: Service Date/Time: Wednesday, September 06, 2017 03:03 - CONCLUSION: Improving aeration Dmitri Mohan MD Abdomen X-Ray 08/31/17 0000 Signed Impressions: Service Date/Time: Thursday, August 31, 2017 20:34 - CONCLUSION: 1. Nasogastric tube tip in distal stomach. David Jay MD CT Angiography 08/29/17 1849 Signed Impressions: Service Date/Time: Tuesday, August 29, 2017 19:36 - CONCLUSION: 1. Multilobar consolidation. 2. No evidence for pulmonary embolism. 3. Extensive coronary calcifications Pk Bae MD Objective Remarks General - elderly gentleman, intubated and sedated propofol and fentanyl, chronically ill-appearing HEENT - pupils equal, reactive, sclerae anicteric, neck supple, no nuchal rigidity, neck veins not distended, no carotid bruit, orally intubated CV -tachycardic and irregular. S1, S2. No S4. Without murmur Chest - diffuse coarse breath sounds b/l, good air entry, no wheezes Abdomen - soft, appears non-tender, non-distended, BS present, no hepatomegaly, no splenomegaly Skin - no rashes, no cyanosis Extremities - warm and well perfused, no edema, + peripheral pulses, Neuro - RASS 0 pupils are equal and reactive, following commands sedation bilateral upper and lower extremities Urinary Catheter: Yes Assessment to: Continue Dockery insert reason: Prolonged Immobilization Vascular Central Line Catheter: No Assessment to: Continue A/P Assessment and Plan Neurologic/Psych: Hypothermia-resolved Daily sedation vacation Tylenol 650 mg every 6 hours as needed for temp greater than 101.5 Continue propofol infusion/fentanyl sedation to maintain ventilator synchrony Goal of RA SS -2 Respiratory: Possible pneumonia +/-radiation pneumonitis Lung cancer undergoing concurrent radiation therapy and chemotherapy Acute COPD exacerbation Acute hypoxemic and hypercapnic respiratory failure Maintain O2 sat greater than 92% 09/03 chest [id number] PRVC Ventilator bundle Continue CPAP trials Albuterol/ipratropium aerosols every 6 hours scheduled and every 2 hours as needed-albuterol Methylprednisolone succinate 40 mg taper to every 12 hours At home on furosemide/formoterol 160/4.5 1 inhalation twice daily and uneclidinium/vilanterol 62.5/25 1 inhalation daily Cardiovascular: A. fib RVR-resolved Atrial flutter- Restart amiodarone infusion. Most recently discontinued 09/01 Maintain MAP greater than 65 09/01-amiodarone infusion discontinued 09/01 metoprolol tartrate 50 mg twice daily. This is a home medication. Cardizem increased to 90 mg 4 times daily. Home medication is 240 mg daily Holding lisinopril 5 mg daily social medication 09/01 [facility] substitution for pravastatin 10 mg daily, aspirin 81 mg continued along with clopidogrel 75 mg daily Continue furosemide 20 mg daily Renal: AK I -resolved -- Strict I/Os Monitor urine output FEN/GI: Gastroesophageal reflux disease Hypernatremia Dietary consult initiated -begin tube feeds with Jevity 1.5 goal 50 cc an hour 09/02 Bowel regimen-no bowel movement since admission to hospital Docusate sodium/senna 1 tablet twice daily and lactulose 30 mL daily for bowel regimen Lansoprazole for GI prophylaxis. On ranitidine 150 mg twice daily at home Holding scheduled sodium chloride 1 g daily/home medication while hypernatremic Start free water 200 cc every 8 hours Heme/ID: Gram-positive bacteremia -staph hominis Acute blood loss anemia-resolved Leukocytosis 08/31 Heparin infusion discontinued. Resume 09/06 09/01 no active signs of bleeding, hematuria resolved ID following-antibiotics per ID recommendation level levofloxacin 6, piperacillin/tazobactam and vancomycin Sputum- Pseudomonas 08/30 Blood-staph hominis (contaminant?) 08/29 Endocrine: Glucose monitoring per ICU protocol TSH normal around 2 -- SSI Prophylaxis: GI Prophylaxis Lansoprazole DVT Prophylaxis -- SCDs Heparin gtt Lines: Peripheral IVs x 2. Central line if indicated. Dispo: Level 2 follow-up Roderick Almonte MD September 06, 2017 12:26
[2017-09-06] MEDS: LEVOFLOXACIN 250 MG PREMIX INJ 50 ML IV SCH (12:28)
[2017-09-06] MEDS ORDERED: ADENOSINE IV SOLN 3 MG/ML 2 ML VIAL IV PUSH ONE (12:30)
[2017-09-06] MEDS: HEPARIN-D5W 25,000 U/250 ML 250 ML IV PRN (13:13)
[2017-09-06] MEDS: AMIODARONE INJ 450 MG in SODIUM CHLOR 0.9% (EXCEL) INJ 241 ML IV PRN ×2 (13:17→20:29)
[2017-09-06] MEDS: FREE WATER NG SCH ×2 (14:00→22:00)
[2017-09-06 15:34] LABS: HEMATOCRIT 30.9 % (39.0-51.0); HEMOGLOBIN 10.2 GM/DL (13.0-17.0); MEAN CELL VOLUME 90.1 FL (80.0-100.0); MEAN CORPUSCULAR HEMOGLOBIN 29.6 PG (27.0-34.0); MEAN CORPUSCULAR HGB CONC 32.9 % (32.0-36.0); MEAN PLATELET VOLUME 8.3 FL (7.0-11.0); PLATELET COUNT 208 TH/MM3 (150-450); RED BLOOD COUNT 3.43 MIL/MM3 (4.50-5.90); RED CELL DISTRIBUTION WIDTH 19.8 % (11.6-17.2); WHITE BLOOD COUNT 12.1 TH/MM3 (4.0-11.0)
[2017-09-06 15:48] LABS: INTERNATIONAL NORMALIZED RATIO 1.1 RATIO; PROTHROMBIN TIME - PATIENT 11.1 SEC (9.8-11.6)
[2017-09-06] MEDS: RESP: ALBUTEROL 2.5 MG/IPRATROPIUM 0.5 MG NEB (SCH) NEB ×2 (16:11→19:44)
[2017-09-06 16:20] LABS: TROPONIN I 0.82 NG/ML (0.02-0.05)
[2017-09-06] MEDS: ARTIFICIAL TEARS OPTH SOLN 15 ML BTL EACH EYE SCH ×2 (17:06→22:00)
[2017-09-07] VITALS (27 sets, daily range): BP systolic 137–181; BP diastolic 74–99; PULSE 63–99; RESP 18; TEMP 97.4–98.9; O2SAT 92–100
[2017-09-07] MEDS: RESP: ALBUTEROL 2.5 MG/IPRATROPIUM 0.5 MG NEB (SCH) NEB ×7 (00:45→23:20)
[2017-09-07] MEDS: methylPREDNISolone SOD SUCC 40 MG/1 ML VIAL IV PUSH SCH ×2 (02:49→13:35)
[2017-09-07] MEDS: PIPERACIL-TAZO 4.5 GM PREMIX 100 ML IV SCH ×4 (02:50→21:28)
[2017-09-07] MEDS: DILTIAZEM HCL 90 MG TAB PO SCH ×4 (02:50→21:28)
[2017-09-07] MEDS: CHLORHEXIDINE GLUCONATE 2 % 1 PACK (2 CLOTHS) TOP SCH (04:00)
--- NOTE | 2017-09-07 05:09 | RADRPT ---
EXAM DATE/TIME: 09/07/2017 04:21 [facility] COMPARISON: CHEST SINGLE AP, September 06, 2017, 3:03. CHEST SINGLE AP, September 05, 2017, 3:08. INDICATIONS : Shortness of breath, possible pulmonary disease. MEDICAL HISTORY : Hypertension. Chronic obstructive pulmonary disease. Carcinoma, lung. SURGICAL HISTORY : None. ENCOUNTER: Subsequent ACUITY: 1 week PAIN SCORE: Non-responsive. LOCATION: Bilateral chest FINDINGS: A single view of the chest demonstrates the endotracheal, nasogastric tube are both in good position. Increasing consolidation left lung base a combination of airspace disease and pleural effusion. Righ t lung remains relatively clear. The cardiomediastinal contours are unremarkable. Osseous structure s are intact. CONCLUSION: Increasing consolidation left lower lobe a combination of airspace disease and pleural effusion. Luis Castro MD on September 07, 2017 at 5:07 Board Certified Radiologist. This report was verified electronically.
[2017-09-07] MEDS: FREE WATER NG SCH ×4 (06:00→22:45)
[2017-09-07] MEDS: INSULIN NovoLIN REGULAR SUPPLEMENTAL SCALE SQ SCH ×5 (06:44→22:45)
[2017-09-07] MEDS: ARTIFICIAL TEARS OPTH SOLN 15 ML BTL EACH EYE SCH ×3 (06:44→21:29)
[2017-09-07] MEDS: PROPOFOL 1000 MG/100 ML INJ 100 ML IV PRN ×2 (06:46→17:07)
[2017-09-07 06:58] LABS: BASOPHIL # 0.1 TH/MM3 (0-0.2); BASOPHIL % 0.5 % (0.0-2.0); HEMATOCRIT 31.9 % (39.0-51.0); LYMPH % 1.2 % (9.0-44.0); LYMPHOCYTE # 0.1 TH/MM3 (1.0-4.8); MEAN CORPUSCULAR HEMOGLOBIN 28.3 PG (27.0-34.0); MEAN CORPUSCULAR HGB CONC 31.4 % (32.0-36.0); MEAN PLATELET VOLUME 8.4 FL (7.0-11.0); MONO % 4.6 % (0.0-8.0); MONOCYTE # 0.5 TH/MM3 (0-0.9); NEUT % 93.7 % (16.0-70.0); PLATELET COUNT 220 TH/MM3 (150-450); RED BLOOD COUNT 3.54 MIL/MM3 (4.50-5.90); RED CELL DISTRIBUTION WIDTH 19.5 % (11.6-17.2); WHITE BLOOD COUNT 11.8 TH/MM3 (4.0-11.0)
[2017-09-07 07:13] LABS: ALBUMIN 2.1 GM/DL (3.4-5.0); ALT (GPT) 55 U/L (12-78); AST (GOT) 30 U/L (15-37); BICARBONATE 34.5 MEQ/L (21.0-32.0); BLOOD UREA NITROGEN 34 MG/DL (7-18); CHLORIDE 108 MEQ/L (98-107); CREATININE 0.98 MG/DL (0.60-1.30); GLOMERULAR FILTRATION RATE 78 ML/MIN (>89); GLUCOSE,RANDOM 154 MG/DL (74-106); MAGNESIUM 2.4 MG/DL (1.5-2.5); PHOSPHORUS 3.6 MG/DL (2.5-4.9); SODIUM (NA) 149 MEQ/L (136-145)
[2017-09-07 07:16] LABS: ALKALINE PHOSPHATASE 84 U/L (45-117); TOTAL BILIRUBIN ADULT 0.4 MG/DL (0.2-1.0); TOTAL PROTEIN 5.7 GM/DL (6.4-8.2)
[2017-09-07 07:28] LABS: TROPONIN I 1.06 NG/ML (0.02-0.05)
[2017-09-07] MEDS: LANSOPRAZOLE SOLUTAB 30 MG TAB NG SCH (08:48)
[2017-09-07] MEDS: CHLORHEXIDINE 0.12% (ORAL KIT) 15 ML CUP MT SCH ×2 (08:48→19:18)
[2017-09-07] MEDS: ASPIRIN 81 MG CHEW TAB CHEW SCH (08:48)
[2017-09-07] MEDS: LACTULOSE SYRUP 20 GM/30 ML CUP PO SCH (08:48)
[2017-09-07] MEDS: PRAVASTATIN SOD 10 MG TAB PO SCH (08:49)
[2017-09-07] MEDS: CLOPIDOGREL 75 MG TAB PO SCH (08:49)
[2017-09-07] MEDS: METOPROLOL TARTRATE 50 MG TAB PO SCH ×2 (08:49→21:28)
[2017-09-07] MEDS: DOCUSATE SODIUM 50 MG/SENNA 8.6 MG TAB PO SCH ×2 (08:49→21:28)
[2017-09-07] MEDS: SODIUM CHLORIDE 0.9% FLUSH 10 ML FLUSH IVF PRN ×2 (08:49)
[2017-09-07] MEDS ORDERED: FUROSEMIDE 20 MG TAB PO SCH (09:00)
--- NOTE | 2017-09-07 10:16 | EKG ---
Date Performed: 09/06/2017 Time Performed: 12:16:14 PTAGE: 61 years EKG: ATRIAL FLUTTER/TACHYCARDIA WITH RAPID VENTRICULAR RESPONSE MODERATE INTRAVENTRICULAR CONDUC TION DELAY ST DEVIATION AND MODERATE T-WAVE ABNORMALITY, CONSIDER LATERAL ISCHEMIA ST DEVIATION AND M ODERATE T-WAVE ABNORMALITY, CONSIDER INFERIOR ISCHEMIA ABNORMAL ECG PREVIOUS TRACING : 08/29/2017 21.50 Compared to the prior study, atrial flutter with rapid vent ricular response and nonspecific ST-T changes are new. DOCTOR: Tremaine Appiah Interpretating Date/Time 09/07/2017 10:14:06
[2017-09-07] MEDS: LEVOFLOXACIN 250 MG PREMIX INJ 50 ML IV SCH (12:30)
[2017-09-07] MEDS: HEPARIN-D5W 25,000 U/250 ML 250 ML IV PRN (12:32)
--- NOTE | 2017-09-07 13:00 | HHI.HCPN ---
Reason for visit a. To assist with evaluation and management of symptoms including: Shortness of breath, pain, debility b. To assist medical decision maker(s) with: better understanding of current medical conditions; weighing benefits/burdens of medical treatment options; making medical treatment decisions. Subjective/Interval History Follow up medically necessary for symptom management and further clarification of goals of care. Patient seen and examined on MICU in the presence of his bedside RN. Patient remains intubated, mildly sedated on mechanical ventilation. Patient is currently on fentanyl infusion at 100 mcg/hr and propofol at 20 mcg/kg/min. Patient is also on amiodarone infusion at 0.5mg/min, and Heparin infusion. Patient has his eyes open, tracking, following simple commands with all 4 extremities with generalized weakness. Patient is currently on CPAP trials with ventilator settings on 12/16/35%, respiration rate currently 22. Interim course: * EKG on 09/06/17 revealed atrial flutter/tachycardia with rapid ventricular response moderate intraventricular conduction delay ST deviation and moderate T- wave abnormality. Patient received Adenosine 12 mg 1 * 09/06/17 laboratory workup revealed potassium 4.2, magnesium 2.4, troponin 0.82 , total creatinine kinase 25. * Patient was started on heparin infusion and restarted on amiodarone infusion. Laboratory workup today revealing WBC 11.8, hemoglobin 10.0, hematocrit 31.9, platelet count 220, sodium 149, potassium 4.6, BUN/creatinine 34/0.98, random glucose 154, magnesium 2.4, troponin I 1.06, total protein 5.7, albumin 2.1. Chest x-ray today revealing increasing consolidation left lower lobe, a combination of airspace disease and pleural effusion. Patient slightly hypotensive with SBP in the 150s-170s. Attempted to address code status with patient, after bedside RN mentioned that patient has been indicating that he does not want to have endotracheal tube again if ever he is extubated. Patient attempting to communicate with nodding his head for yes and shaking his head for no. Patient appears to not to be comprehending conversation at the time. When code status is addressed patient is not persistent with his answers, sometimes he nods head "yes" for reintubation if he is in respiratory distress and sometimes he shakes his head "no" for reintubation. Patient not persistent with his answers if he would want to be resuscitated if he is in a cardiac arrest given his ongoing comorbidities. Telephone call to patient`s cousin Dahiana Mayorga, no response- left a voice message. Call back received from patient`s cousin, Dahiana who is the health care surrogate. Updated her on patient`s current medical status. Patient`s cousin would like an update from the medical team regarding patient`s condition to be able to make informed decisions regarding goals of care. Currently, goals remain aggressive Case discussed with bedside RN Twila. . Family/friend interactions Telephone call to patient`s cousin Dahiana Mayorga, no response- left a voice message . Advance Directives Health Care Surrogate: Copy in medical record Advance Directive Specifics Date completed[place] [facility] [place] . Health Care Surrogate(s): HCS- (Long time friend-15 yrs) Kay Rizvi [phone]- (July 2017) Alternate HCS- Cousin- Dahiana Mayorga [phone] (will serve as HCS) . Objective Vital Signs Date Time Temp Pulse Resp B/P (MAP) Pulse Ox O2 Delivery O2 Flow Rate FiO2 09/07/17 11:20 99 35 09/07/17 11:00 71 158/90 (112) 100 09/07/17 10:45 70 09/07/17 10:00 69 150/85 (106) 92 09/07/17 10:00 69 09/07/17 09:00 77 173/98 (123) 94 09/07/17 08:00 35 09/07/17 08:00 75 09/07/17 08:00 97.4 75 169/99 (122) 94 09/07/17 07:53 95 35 09/07/17 07:53 35 09/07/17 07:00 100 Mechanical Ventilator 09/07/17 07:00 63 165/90 (115) 100 09/07/17 06:00 65 09/07/17 04:00 45 09/07/17 04:00 98.0 69 145/74 (97) 98 09/07/17 04:00 69 09/07/17 03:58 99 45 09/07/17 02:00 70 09/07/17 00:45 99 50 09/07/17 00:00 98.2 68 18 137/78 (97) 100 09/07/17 00:00 45 09/07/17 00:00 68 09/06/17 22:00 66 09/06/17 21:30 99 50 09/06/17 20:29 85 158/94 09/06/17 20:00 45 09/06/17 20:00 84 09/06/17 20:00 97.9 84 18 158/94 (115) 99 09/06/17 19:00 Mechanical Ventilator 09/06/17 18:00 74 09/06/17 17:42 97 45 09/06/17 16:00 70 09/06/17 16:00 45 09/06/17 16:00 98.2 70 118/72 (87) 95 09/06/17 14:00 126 09/06/17 13:28 97 45 09/06/17 13:24 150 123/88 09/06/17 13:17 150 123/88 Intake & Output 09/07/17 09/07/17 06:59 18:59 Intake Total 1123 ml Output Total 650 ml Balance 473 ml Intake IV Total 550 ml Tube Feeding 573 ml Output Urine Total 650 ml # Bowel Movements 0 Physical Exam CONSTITUTIONAL/GENERAL: This is a chronically ill patient, intubated, mildly sedated on CPAP trials TUBES/LINES/DRAINS: ETT, NGT, PIV, SCDs, Dockery catheter, bilateral upper extremity soft restraints SKIN: No jaundice, rashes, or lesions. Ecchymoses on upper extremities. No wounds seen anteriorly. Not diaphoretic. HEAD: Atraumatic. Normocephalic. EYES: Pupils 2 mm, questionable reaction.No scleral icterus. No injection or drainage. Fundi not examined. ENT: Unable to assess Hearing. Nose without bleeding or purulent drainage. Moist oral mucosa CARDIOVASCULAR: S1-S2 normal, NSR on amiodorone infusion. No murmurs, no JVD. peripheral pulses symmetric. RESPIRATORY/CHEST: Symmetric, unlabored respirations. Diminished in the bases. No wheezes, rales. GASTROINTESTINAL: Abdomen soft, non-tender, nondistended. Bowel sounds present. TF infusing via NGT GENITOURINARY: Without palpable bladder distension. Dockery catheter in place. MUSCULOSKELETAL: Extremities without clubbing, cyanosis. Edema to all four extremities. No mottling or clubbing. NEUROLOGICAL: Intubated, sedated on mechanical ventilation. Spontaneously moving all 4 extremities. PSYCHIATRIC: Unable to assess at this time. . Diagnostic Tests Laboratory Laboratory Tests Test 09/05/17 04:47 09/06/17 05:05 09/06/17 14:38 09/06/17 18:33 White Blood Count 10.4 TH/MM3 (4.0-11.0) 14.2 TH/MM3 (4.0-11.0) 12.1 TH/MM3 (4.0-11.0) Red Blood Count 3.56 MIL/MM3 (4.50-5.90) 3.74 MIL/MM3 (4.50-5.90) 3.43 MIL/MM3 (4.50-5.90) Hemoglobin 10.3 GM/DL (13.0-17.0) 10.9 GM/DL (13.0-17.0) 10.2 GM/DL (13.0-17.0) Hematocrit 31.8 % (39.0-51.0) 33.6 % (39.0-51.0) 30.9 % (39.0-51.0) Mean Corpuscular Volume 89.3 FL (80.0-100.0) 89.7 FL (80.0-100.0) 90.1 FL (80.0-100.0) Mean Corpuscular Hemoglobin 29.0 PG (27.0-34.0) 29.0 PG (27.0-34.0) 29.6 PG (27.0-34.0) Mean Corpuscular Hemoglobin Concent 32.5 % (32.0-36.0) 32.3 % (32.0-36.0) 32.9 % (32.0-36.0) Red Cell Distribution Width 19.1 % (11.6-17.2) 19.2 % (11.6-17.2) 19.8 % (11.6-17.2) Platelet Count 230 TH/MM3 (150-450) 253 TH/MM3 (150-450) 208 TH/MM3 (150-450) Mean Platelet Volume 7.8 FL (7.0-11.0) 8.0 FL (7.0-11.0) 8.3 FL (7.0-11.0) Blood Urea Nitrogen 30 MG/DL (7-18) 32 MG/DL (7-18) Creatinine 1.05 MG/DL (0.60-1.30) 1.01 MG/DL (0.60-1.30) Random Glucose 191 MG/DL (74-106) 193 MG/DL (74-106) Calcium Level 8.0 MG/DL (8.5-10.1) 8.0 MG/DL (8.5-10.1) Phosphorus Level 2.5 MG/DL (2.5-4.9) 2.6 MG/DL (2.5-4.9) Magnesium Level 2.2 MG/DL (1.5-2.5) 2.4 MG/DL (1.5-2.5) Sodium Level 143 MEQ/L (136-145) 146 MEQ/L (136-145) Potassium Level 4.0 MEQ/L (3.5-5.1) 4.2 MEQ/L (3.5-5.1) Chloride Level 104 MEQ/L (98-107) 106 MEQ/L (98-107) Carbon Dioxide Level 30.0 MEQ/L (21.0-32.0) 31.9 MEQ/L (21.0-32.0) Anion Gap 9 MEQ/L (5-15) 8 MEQ/L (5-15) Estimat Glomerular Filtration Rate 72 ML/MIN (>89) 75 ML/MIN (>89) Neutrophils (%) (Auto) 93.9 % (16.0-70.0) Lymphocytes (%) (Auto) 0.9 % (9.0-44.0) Monocytes (%) (Auto) 5.0 % (0.0-8.0) Eosinophils (%) (Auto) 0.0 % (0.0-4.0) Basophils (%) (Auto) 0.2 % (0.0-2.0) Neutrophils # (Auto) 13.3 TH/MM3 (1.8-7.7) Lymphocytes # (Auto) 0.1 TH/MM3 (1.0-4.8) Monocytes # (Auto) 0.7 TH/MM3 (0-0.9) Eosinophils # (Auto) 0.0 TH/MM3 (0-0.4) Basophils # (Auto) 0.0 TH/MM3 (0-0.2) CBC Comment DIFF FINAL Differential Comment Prothrombin Time 11.1 SEC (9.8-11.6) Prothromb Time International Ratio 1.1 RATIO Activated Partial Thromboplast Time 31.6 SEC (24.3-30.1) 57.6 SEC (24.3-30.1) Total Creatine Kinase 25 U/L (39-308) Troponin I 0.82 NG/ML (0.02-0.05) Test 09/07/17 00:33 09/07/17 05:34 09/07/17 05:54 Activated Partial Thromboplast Time 71.7 SEC (24.3-30.1) 82.8 SEC (24.3-30.1) White Blood Count 11.8 TH/MM3 (4.0-11.0) Red Blood Count 3.54 MIL/MM3 (4.50-5.90) Hemoglobin 10.0 GM/DL (13.0-17.0) Hematocrit 31.9 % (39.0-51.0) Mean Corpuscular Volume 90.0 FL (80.0-100.0) Mean Corpuscular Hemoglobin 28.3 PG (27.0-34.0) Mean Corpuscular Hemoglobin Concent 31.4 % (32.0-36.0) Red Cell Distribution Width 19.5 % (11.6-17.2) Platelet Count 220 TH/MM3 (150-450) Mean Platelet Volume 8.4 FL (7.0-11.0) Neutrophils (%) (Auto) 93.7 % (16.0-70.0) Lymphocytes (%) (Auto) 1.2 % (9.0-44.0) Monocytes (%) (Auto) 4.6 % (0.0-8.0) Eosinophils (%) (Auto) 0.0 % (0.0-4.0) Basophils (%) (Auto) 0.5 % (0.0-2.0) Neutrophils # (Auto) 11.0 TH/MM3 (1.8-7.7) Lymphocytes # (Auto) 0.1 TH/MM3 (1.0-4.8) Monocytes # (Auto) 0.5 TH/MM3 (0-0.9) Eosinophils # (Auto) 0.0 TH/MM3 (0-0.4) Basophils # (Auto) 0.1 TH/MM3 (0-0.2) CBC Comment DIFF FINAL Differential Comment Blood Urea Nitrogen 34 MG/DL (7-18) Creatinine 0.98 MG/DL (0.60-1.30) Random Glucose 154 MG/DL (74-106) Total Protein 5.7 GM/DL (6.4-8.2) Albumin 2.1 GM/DL (3.4-5.0) Calcium Level 8.0 MG/DL (8.5-10.1) Phosphorus Level 3.6 MG/DL (2.5-4.9) Magnesium Level 2.4 MG/DL (1.5-2.5) Alkaline Phosphatase 84 U/L (45-117) Aspartate Amino Transf (AST/SGOT) 30 U/L (15-37) Alanine Aminotransferase (ALT/SGPT) 55 U/L (12-78) Total Bilirubin 0.4 MG/DL (0.2-1.0) Sodium Level 149 MEQ/L (136-145) Potassium Level 4.6 MEQ/L (3.5-5.1) Chloride Level 108 MEQ/L (98-107) Carbon Dioxide Level 34.5 MEQ/L (21.0-32.0) Anion Gap 7 MEQ/L (5-15) Estimat Glomerular Filtration Rate 78 ML/MIN (>89) Troponin I 1.06 NG/ML (0.02-0.05) Result Diagram: 09/07/17 0554 09/07/17 0554 Imaging Last 24 hours Impressions Chest X-Ray 09/07/17 0600 Signed Impressions: Service Date/Time: Thursday, September 07, 2017 04:21 - CONCLUSION: Increasing consolidation left lower lobe a combination of airspace disease and pleural effusion. Luis Castro MD Procedures 08/29/17-intubation 08/31/17-self extubation 08/31/17-reintubated . Assessment and Plan Disease Oriented Problem List: (1) Acute respiratory failure with hypoxia and hypercarbia (2) Lung cancer (3) Atrial fibrillation with RVR (4) Lung consolidation (5) COPD (chronic obstructive pulmonary disease) Symptom Scale: (1) Shortness of breath Comment: Hx of lung cancer. CT angiography revealed multilobar consolidation and no evidence for pulmonary embolism, extensive coronary calcifications. . (2) Pain Comment: Risk for pain-from procedure (intubation), bedbound status. . (3) Debility 0-10 Scale: Unable to quantify Comment: Progressive . Pertinent Non-Medical Issues Psychosocial:Patient was born and raised in [place]. He left [place] at the age of 20. Patient moved to [place] in 1975. Patient has a 2 years college degree in [employer] technology. 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 Patient was and twice. He never had children. Spiritual:N congregational affiliation Legal:Patient has a [facility] [place] and completed a Community DNR Ethical issues impacting care:None identified at this time . Important Contacts Alternate [facility] [place]- Cousin- Dahiana Mayorga [phone] Friend-Nemo [phone] [facility] [place]- (Long time friend-15 yrs) Kay Rizvi [phone]- . Prognosis Mr Adams is a 61 years old male with a past medical history significant of lung cancer s/p radiation, COPD, hypertension, coronary artery disease and tobacco use. Patient presented to the ER via EMS on 08/29/17 complaining of shortness of breath that had started the night before, generalized malaise and weakness. Clinical course complicated with atrial fibrillation with RVR, and acute hypoxic and hypercapnic respiratory failure. Given ongoing comorbidities , patient remains at high risk for further complications, deterioration and decline. . Code Status: Full Code Plan PLAN: Legal decision maker: Patient is currently intubated, sedated on mechanical ventilation and is not able to participate in decision-making. Patient`s cousin Dahiana Mayorga whom he has designated as his alternate healthcare surrogate will make medical decisions for patient. Goals: Remain Aggressive CODE STATUS: Full code Attempted to address code status with patient, after bedside RN mentioned that patient has been indicating that he does not want to have endotracheal tube again if ever he is extubated. Patient attempting to communicate with nodding his head for yes and shaking his head for no. Patient appears to not to be comprehending conversation at the time. When code status is addressed patient is not persistent with his answers, sometimes he nods head "yes" for reintubation if he is in respiratory distress and sometimes he shakes his head "no" for reintubation. Patient not persistent with his answers if he would want to be resuscitated if he is in a cardiac arrest given his ongoing comorbidities. Telephone call to patient`s cousin Dahiana Mayorga, no response- left a voice message.Call back received from patient`s cousin, Dahiana who is the health care surrogate. Updated her on patient`s current medical status. Patient`s cousin would like an update from the medical team regarding patient`s condition to be able to make informed decisions regarding goals of care. Currently, goals remain aggressive. SYMPTOMS: * Shortness of breath: Patient has history of lung cancer, COPD and tobacco use. Patient presented with shortness of breath. Intubated 08/29, self extubated 08/31, reintubated 08/31 secondary to respiratory failure. Worsening chest x-ray today. Solu-Medrol and duo nebs prn. Currently on FiO2 35% on CPAP trials. Requiring a PEEP of 8 and PSV of 15 No recommendations at this time. * Pain: Patient is at risk for pain, required intubation in the ER. Currently bedbound. Fentanyl infusion at 100mcg/hr. No signs of pain noted. No recommendations at this time. * Debility: Progressive: Hx of lung cancer s/p radiation. Multiple hospitalizations. Patient may benefit from PT consultation if goals remain aggressive. . Palliative care will continue to follow the patient during hospital course as condition evolves, to assist patient/decision-maker with understanding of their medical conditions, weighing benefits/burdens of treatment options, for clarification of goals of treatment. Additionally will assist with any symptoms of palliative concern Attestation To help prompt me to consider important information that might be impacting today's encounter and assessment, information from prior notes written by myself or my colleagues may have been "brought forward" into today's note. My signature on this note, however, is an attestation that I personally performed the exam, history, and/or decision-making noted today, and, unless otherwise indicated, the interactions with patient, family, and staff as well as the review of records all occurred today. I also attest that the listed assessment and stated plan reflect my best clinical judgment today based on the combination of historical information, prior notes, and today's exam/ interactions. When time spent is documented, it refers only to time spent today by the signer, or if indicated, combined time spent today by collaborating physician/nurse practitioner. Randa Tenorio September 07, 2017 13:00
[2017-09-07] MEDS: AMIODARONE INJ 450 MG in SODIUM CHLOR 0.9% (EXCEL) INJ 241 ML IV PRN (13:35)
[2017-09-07] MEDS: hydrALAZINE HCL 20 MG/ML VIAL IV PUSH PRN (15:08)
--- NOTE | 2017-09-07 15:44 | HHI.CCPN ---
Subjective Remarks/Hospital Course 08/29: This is a 61-year-old male with a history of lung cancer undergoing current chemotherapy and radiation who was recently admitted on 07/19 for aspiration pneumonia. During that admission he did have episodes of paroxysmal atrial fibrillation and had an echo from 04/2017 showing an EF of 50-55%. He represents today to the emergency department with acute shortness of breath since last night. Per the ER documentation, he denies any coughing, fever, chills, or other recent symptoms or changes other than the new dyspnea. In the emergency department he was found to be in A. fib with RVR. This initially converted to sinus rhythm 1 after diltiazem 20 mg IV bolus, but then very quickly went back into atrial for ablation with rapid ventricular response. 2 doses of adenosine were not able to convert it. The patient was loaded with amiodarone and infusion was started. After this, the patient become acutely hypoxemic requiring emergent intubation. Please refer to the emergency room physician documentation for additional details regarding the decompensation. When I came to evaluate patient, the patient was recently intubated, sedated. No additional information is available from the patient due to his clinical condition. Review of systems is unobtainable. Critical care medicine is consulted to evaluate manage his acute hypoxic respiratory failure along with his acute supraventricular tachycardia. 08/30: Patient remains intubated and sedated. FiO2 down to 0.5. Patient continues to be on amiodarone infusion and heparin drip. Sedation achieved with propofol and fentanyl. Patient remains hypothermic requiring Gracia hugger, urine output 350 mL's documented since admission. 08/31: No events over the night. Patient remains intubated and sedated. Hemoglobin more stable posttransfusion. Hypothermia resolved, T-max of 100.3. Urine output remains low, 635 mL's over the last 24 hours. Oxygenation is improved. No family present at bedside. Patient remains in sinus rhythm, on amiodarone infusion. No report of melena, hematochezia or coffee-ground aspirate from NG tube. Morning chest x-ray reviewed, worsening infiltrates over the right thorax, unchanged consolidation over the left. 09/01: Afebrile. Patient was extubated yesterday afternoon and emergently intubated 1030 last night secondary to hypoxemic respiratory failure. This x- ray pending this a.m.. The patient also was noted to have severe metabolic acidosis and sodium bicarbonate infusion was initiated. Patient noted to have Pseudomonas, and placed on Zosyn. Patient continues to have leukocytosis with worsening pneumonia ID has been consulted appreciate recommendations. Patient previously DNR palliative has been consulted up on hypoxemic respiratory failure patient was noted to request intubation at that time. Palliative care consult pending. Patient continues on amiodarone infusion now in sinus rhythm. Amiodarone infusion discontinued the patient continued on metoprolol and Cardizem home medications. Hemoglobin appears stable status post 2 units transfusion 48 hours ago. Will do serial H&H's aspirin reinitiated will hold Plavix for now, and continue to follow. Subcu heparin initiated. 09/02: Afebrile. Hemoglobin stable for the last 24 hours. Plan to restart tube feeds this a.m.. Metabolic acidosis resolved, patient's sodium bicarbonate discontinued. Patient requiring increasing FiO2 requirements during the night , now at 100% ABG pending. This am chest x-ray worsening. 09/03: Late entry note patient seen at 8:15 AM .afebrile. Chest x-ray continues to worsen. FiO2 requirement slightly decreased we will attempt CPAP trials today. 09/04: Afebrile. patient awake and following commands this a.m. Currently on CPAP trials. FiO2 weaned to 45% 09/05: Afebrile. Patient tolerating CPAP trials. She noted to have elevated blood glucose level secondary methylprednisolone. Chest x-ray now improving methylprednisolone taper initiated. Patient noted to still have episodes of hypertension Cardizem increased to 90 mg every 6 hours. 09/06: Patient currently in a flutter. Received adenosine 12 mg 1 which feels a flutter. Echocardiogram CPK and troponin ordered. TSH normal during this hospitalization. Potassium magnesium both normalized. Arousable and follows commands. Subjective 09/07: Patient is currently on PSV trial 20/8 ~35%. Patient oscillating on CODE STATUS. Tolerating tube feeds. Remains in normal sinus rhythm on amiodarone drip. Objective Vital Signs Date Time Temp Pulse Resp B/P (MAP) Pulse Ox O2 Delivery O2 Flow Rate FiO2 09/07/17 13:35 78 163/95 09/07/17 13:00 96 09/07/17 12:00 98.3 09/07/17 12:00 70 09/07/17 07:00 Mechanical Ventilator 09/07/17 00:00 18 Intake and Output 09/07/17 09/07/17 09/08/17 08:00 16:00 00:00 Intake Total 773 ml 575 ml Output Total 650 ml Balance 123 ml 575 ml Result Diagram: 09/07/17 0554 09/07/17 0554 Other Results Microbiology Date/Time Source Procedure Growth Status 08/29/17 20:40 Blood Peripheral Aerobic Blood Culture - Final Staphylococcus Hominis-Hominis Complete 08/29/17 20:40 Blood Peripheral Anaerobic Blood Culture - Final NO GROWTH IN 5 DAYS Complete 08/30/17 04:45 Sputum Endotracheal Gram Stain - Final Complete 08/30/17 04:45 Sputum Culture - Final Pseudomonas Aeruginosa Complete 08/29/17 19:10 Urine Catheterized Urine Streptococcus pneumoniae Antigen (M - Final PRESUMPTIVE NEGATIVE FOR STREPTOCOCCU... Complete Imaging Last Impressions Chest X-Ray 09/07/17 0600 Signed Impressions: Service Date/Time: Thursday, September 07, 2017 04:21 - CONCLUSION: Increasing consolidation left lower lobe a combination of airspace disease and pleural effusion. Luis Castro MD Abdomen X-Ray 08/31/17 0000 Signed Impressions: Service Date/Time: Thursday, August 31, 2017 20:34 - CONCLUSION: 1. Nasogastric tube tip in distal stomach. David Jay MD CT Angiography 08/29/17 1849 Signed Impressions: Service Date/Time: Tuesday, August 29, 2017 19:36 - CONCLUSION: 1. Multilobar consolidation. 2. No evidence for pulmonary embolism. 3. Extensive coronary calcifications Pk Bae MD Objective Remarks General - elderly gentleman, intubated and sedated propofol and fentanyl, chronically ill-appearing HEENT - pupils equal, reactive, sclerae anicteric, neck supple, no nuchal rigidity, neck veins not distended, no carotid bruit, orally intubated CV -tachycardic and irregular. S1, S2. No S4. Without murmur Chest - diffuse coarse breath sounds b/l, good air entry, no wheezes Abdomen - soft, appears non-tender, non-distended, BS present, no hepatomegaly, no splenomegaly Skin - no rashes, no cyanosis Extremities - warm and well perfused, no edema, + peripheral pulses, Neuro - RASS 0 pupils are equal and reactive, following commands sedation bilateral upper and lower extremities Urinary Catheter: Yes Assessment to: Continue Dockery insert reason: Prolonged Immobilization Vascular Central Line Catheter: No Assessment to: Continue A/P Assessment and Plan Neurologic/Psych: Hypothermia-resolved Daily sedation vacation Tylenol 650 mg every 6 hours as needed for temp greater than 101.5 Continue propofol infusion at 30 mcg/kg/min/fentanyl sedation to maintain ventilator synchrony Goal of RASS -2 Respiratory: Possible pneumonia +/-radiation pneumonitis Lung cancer undergoing concurrent radiation therapy and chemotherapy Acute COPD exacerbation Acute hypoxemic and hypercapnic respiratory failure Maintain O2 sat greater than 92% 09/08 chest [id number] PRVC ventilation at night Ventilator bundle Continue CPAP trials % currently since 8 AM Albuterol/ipratropium aerosols every 6 hours scheduled and every 2 hours as needed-albuterol Methylprednisolone succinate 40 mg taper to every 12 hours At home on furosemide/formoterol 160/4.5 1 inhalation twice daily and uneclidinium/vilanterol 62.5/25 1 inhalation daily Cardiovascular: A. fib RVR-resolved Atrial flutter- Elevated troponin Restart amiodarone infusion on 09/06 most recently discontinued 09/01 Maintain MAP greater than 65 09/01 metoprolol tartrate 50 mg twice daily. This is a home medication. Cardizem increased to 90 mg 4 times daily. Home medication is 240 mg daily Holding lisinopril 5 mg daily medication. Add isosorbide mononitrate 10 mg 3 times daily and hydralazine 25 mg 3 times daily 09/01 [facility] substitution for pravastatin 10 mg daily, aspirin 81 mg continued along with clopidogrel 75 mg daily We will hold furosemide 20 mg daily and give 1 dose of acetazolamide 200 mg IV 1 now Continue on heparin drip. Per family request will consult cardiology for prognostication. Last echocardiogram 04/19 revealed EF around 55%. Remains on beta-zita. Check lipid panel. Already on statin. Renal: AK I -resolved -- Strict I/Os Monitor urine output FEN/GI: Gastroesophageal reflux disease Hypernatremia Dietary consult initiated -begin tube feeds with Jevity 1.5 goal 50 cc an hour 09/02 Bowel regimen-no bowel movement since admission to hospital Docusate sodium/senna 1 tablet twice daily and lactulose 30 mL daily for bowel regimen Lansoprazole for GI prophylaxis. On ranitidine 150 mg twice daily at home Holding scheduled sodium chloride 1 g daily/home medication while hypernatremic Start free water 200 cc every 6 hours Heme/ID: Gram-positive bacteremia -staph hominis Acute blood loss anemia-resolved Leukocytosis 08/31 Heparin infusion discontinued. Resume 09/06 09/01 no active signs of bleeding, hematuria resolved ID following-antibiotics per ID recommendation level levofloxacin 6, piperacillin/tazobactam and vancomycin Sputum- Pseudomonas 08/30 Blood-staph hominis (contaminant?) 08/29 Endocrine: Glucose monitoring per ICU protocol TSH normal around 2 -- SSI Prophylaxis: GI Prophylaxis Lansoprazole DVT Prophylaxis -- SCDs Heparin gtt Lines: Peripheral IVs x 2. Central line if indicated. Dispo: Level 2 follow-up Discussed with healthcare proxy. Roderick Ge MD September 07, 2017 15:43
[2017-09-07] MEDS ORDERED: NITROGLYCERIN 2% OINT 1 GM PACKET TOPICAL PRN (16:00)
[2017-09-07] MEDS: LABETALOL HCL 100 MG/20 ML VIAL IV PUSH PRN (18:09)
--- NOTE | 2017-09-07 19:03 | HHI.IDPN ---
Note Infectious Disease Note Patient has been on CPAP all day. Has eyes open and tracks. No other meaningful response. Afebrile. Presented to the emergency department on 08/29 with respiratory symptoms. Intubated in the ED. PAST MEDICAL HISTORY: Left lung cancer, being treated with chemotherapy and radiation, coronary artery disease, peripheral arterial disease, COPD, hypertension, anxiety, depression, bilateral cataract surgery, recent pneumonia due to Pseudomonas in 04/2017 and 07/2017, history of iliac artery bypass surgery. ALLERGIES: NO KNOWN DRUG ALLERGIES. Current Medications Medications (Trade) Dose Ordered Sig/Benton Route PRN Reason Start Time Stop Time Status Last Admin Dose Admin Sodium Chloride (NS Flush) 2 ml UNSCH PRN IVF FLUSH AFTER USING IV ACCESS 08/29/17 18:00 09/07/17 08:49 Potassium Chloride 100 ml @ 50 mls/hr Q2H PRN IV For Potassium 2.8 - 3.2 mEq/L 08/29/17 18:45 Potassium Chloride 100 ml @ 50 mls/hr Q2H PRN IV For Potassium 2.8 - 3.2 mEq/L 08/29/17 18:45 09/03/17 23:09 Potassium Bicarb/ Potassium Chloride (K-Lyte Cl Eff) 50 meq UNSCH PRN PO For Potassium 3.3 - 3.5 mEq/L 08/29/17 18:45 Potassium Chloride 100 ml @ 25 mls/hr UNSCH PRN IV For Potassium 3.3 - 3.5 mEq/L 08/29/17 18:45 Potassium Chloride 100 ml @ 50 mls/hr Q2H PRN IV For Potassium 3.3 - 3.5 mEq/L 08/29/17 18:45 Magnesium Sulfate 4 gm/Sodium Chloride 100 ml @ 50 mls/hr UNSCH PRN IV For Magnesium 0.9 - 1.1 mg/dL 08/29/17 18:45 Magnesium Oxide (Mag-Ox) 800 mg UNSCH PRN PO For Magnesium 1.2 - 1.6 mg/dL 08/29/17 18:45 Magnesium Sulfate 2 gm/Sodium Chloride 100 ml @ 50 mls/hr UNSCH PRN IV For Magnesium 1.2 - 1.6 mg/dL 08/29/17 18:45 Potassium Phosphate (K-Phos) 2,000 mg Q4H PRN PO For Phosphorus < 2.5 mg/dL 08/29/17 18:45 Sodium Phosphate 30 mmol/Sodium Chloride 250 ml @ 42 mls/hr UNSCH PRN IV For Phosphorus < 2.5 mg/dL 08/29/17 18:45 Potassium Phosphate (K-Phos) 2,000 mg UNSCH PRN PO/TUBE SEE LABEL COMMENTS 08/29/17 18:45 Potassium Phosphate 30 mmol/ Sodium Chloride 260 ml @ 42 mls/hr UNSCH PRN IV SEE LABEL COMMENTS 08/29/17 18:45 Dextrose (D50w (Vial) Inj) 25 ml UNSCH PRN IV PUSH HYPOGLYCEMIA-SEE COMMENTS 08/29/17 18:45 Insulin Human Regular (NovoLIN R SUPPLEMENTAL SCALE) 1 Q6HR SQ 08/30/17 00:00 09/07/17 17:52 Piperacillin Sod/ Tazobactam Sod 100 ml @ 200 mls/hr Q6H IV 08/29/17 20:00 09/12/17 19:59 09/07/17 13:35 Ondansetron HCl (Zofran Inj) 4 mg Q6H PRN IV PUSH NAUSEA OR VOMITING 08/29/17 18:45 08/31/17 19:59 Miscellaneous Information ([facility]) 1 Q361D XX 08/29/17 18:45 08/29/17 18:45 Chlorhexidine Gluconate (Chlorhexidine 2% Cloth) Taper DAILY@04 TOP 08/30/17 04:00 08/26/18 03:59 09/06/17 04:00 Chlorhexidine Gluconate (Chlorhexidine 2% Cloth) 3 pack UNSCH PRN TOP HYGIENIC CARE 08/29/17 18:45 Senna/Docusate Sodium (Nata-Colace) 1 tab BID PO 08/29/17 21:00 09/07/17 08:49 Magnesium Hydroxide (Milk Of Magnesia Liq) 30 ml Q12H PRN PO Mild constipation 08/29/17 18:45 Sodium Chloride (NS Flush) 2 ml UNSCH PRN IVF FLUSH AFTER USING IV ACCESS 08/29/17 19:30 09/07/17 08:49 Chlorhexidine Gluconate (Peridex 0.12% Liq) 15 ml BID@08,20 MT 09/01/17 08:00 09/07/17 08:48 Propofol 100 ml @ 1.65 mls/hr TITRATE PRN IV SEDATION 08/31/17 22:30 09/07/17 17:07 Pravastatin Sodium (Pravachol) 10 mg DAILY PO 09/01/17 09:00 09/07/17 08:49 Metoprolol Tartrate (Lopressor) 50 mg Q12HR PO 09/01/17 09:00 09/07/17 08:49 Aspirin (Aspirin Chew) 81 mg DAILY CHEW 09/01/17 09:00 09/07/17 08:48 Sennosides (Senokot) 17.2 mg Q12H PRN PO Moderate constipation 09/02/17 08:15 Bisacodyl (Dulcolax Supp) 10 mg DAILY PRN RECTAL SEVERE CONSITIPATION 09/02/17 08:15 Lactulose (Lactulose Liq) 30 ml DAILY PRN PO SEVERE CONSITIPATION 09/02/17 08:15 Lactulose (Lactulose Liq) 30 ml DAILY PO 09/02/17 09:00 09/07/17 08:48 Fentanyl Citrate 250 ml @ 5 mls/hr TITRATE PRN IV SEDATION 09/02/17 17:30 09/05/17 18:08 Levofloxacin/ Dextrose 50 ml @ 50 mls/hr Q24H IV 09/04/17 13:00 09/07/17 12:30 Labetalol HCl (Trandate Inj) 10 mg Q4H PRN IV PUSH SBP>160, DBP>90 09/03/17 22:00 09/06/17 11:12 Hydralazine HCl (Apresoline Inj) 20 mg Q4H PRN IV PUSH SBP>160, DBP>90 09/03/17 22:00 09/07/17 15:08 Methylprednisolone Sodium Succinate (SoluMEDROL INJ) 40 mg Q12H IV PUSH 09/06/17 02:00 09/07/17 13:35 Diltiazem HCl (Cardizem) 90 mg Q6H PO 09/05/17 15:00 09/07/17 15:08 Amiodarone HCl 450 mg/Sodium Chloride 250 ml @ 33.33 mls/ hr Q7H31M PRN IV Per Protocol 09/06/17 12:33 09/07/17 13:35 Albuterol/ Ipratropium (Duoneb Neb) 1 ampule Q4HR NEB NEB 09/06/17 16:00 09/07/17 15:44 Albuterol Sulfate (Albuterol Neb) 2.5 mg Q2HR NEB PRN NEB dyspnea 09/06/17 12:30 Artificial Tears (Tears Naturale Opth Soln) 1 drop Q8HR EACH EYE 09/06/17 14:00 09/07/17 13:36 Lansoprazole (Prevacid Odt) 30 mg DAILY NG 09/07/17 09:00 09/07/17 08:48 Heparin Sodium/ Dextrose 250 ml @ 10 mls/hr TITRATE PRN IV Coagulation Management 09/06/17 12:45 09/07/17 12:32 Clopidogrel Bisulfate (Plavix) 75 mg DAILY PO 09/07/17 09:00 09/07/17 08:49 Water (Free Water) VOLUME: 200 ML Q6HR NG 09/07/17 18:00 09/07/17 17:51 Labetalol HCl (Trandate Inj) 10 mg Q1HR PRN IV PUSH SBP>160, DBP>90, HR>65 09/07/17 16:00 09/07/17 18:09 Hydralazine HCl (Apresoline Inj) 10 mg Q1HR PRN IV PUSH SBP>160, DBP>90 09/07/17 16:00 Nitroglycerin (Nitroglycerin 2% Oint) 2 inch Q6HR PRN TOPICAL SBP>160, DBP>90 09/07/17 16:00 Isosorbide Dinitrate (Isordil) 10 mg Q8HR PO 09/07/17 22:00 Hydralazine HCl (Apresoline) 25 mg Q8HR PO 09/07/17 22:00 Objective: Vital Signs Date Time Temp Pulse Resp B/P (MAP) Pulse Ox O2 Delivery O2 Flow Rate FiO2 09/07/17 18:30 85 155/91 (112) 93 09/07/17 18:00 99 09/07/17 18:00 99 169/98 (121) 95 09/07/17 17:00 97 157/96 (116) 96 09/07/17 16:15 50 09/07/17 16:00 35 09/07/17 16:00 98.3 90 147/85 (105) 92 09/07/17 16:00 90 09/07/17 15:44 94 35 09/07/17 15:30 90 137/77 (97) 96 09/07/17 15:00 80 181/99 (126) 95 09/07/17 14:00 84 162/99 (120) 95 09/07/17 14:00 84 09/07/17 13:35 78 163/95 09/07/17 13:00 74 164/96 (118) 96 09/07/17 12:00 72 09/07/17 12:00 98.3 72 151/87 (108) 98 09/07/17 12:00 70 09/07/17 11:20 99 35 09/07/17 11:00 71 158/90 (112) 100 09/07/17 10:45 70 09/07/17 10:00 69 150/85 (106) 92 09/07/17 10:00 69 09/07/17 09:00 77 173/98 (123) 94 09/07/17 08:00 35 09/07/17 08:00 75 09/07/17 08:00 97.4 75 169/99 (122) 94 09/07/17 07:53 95 35 09/07/17 07:53 35 09/07/17 07:00 100 Mechanical Ventilator 09/07/17 07:00 63 165/90 (115) 100 09/07/17 06:00 65 09/07/17 04:00 45 09/07/17 04:00 98.0 69 145/74 (97) 98 09/07/17 04:00 69 09/07/17 03:58 99 45 09/07/17 02:00 70 09/07/17 00:45 99 50 09/07/17 00:00 98.2 68 18 137/78 (97) 100 09/07/17 00:00 45 09/07/17 00:00 68 09/06/17 22:00 66 09/06/17 21:30 99 50 09/06/17 20:29 85 158/94 09/06/17 20:00 45 09/06/17 20:00 84 09/06/17 20:00 97.9 84 18 158/94 (115) 99 Laboratory Tests Test 09/06/17 05:05 09/06/17 14:38 09/07/17 05:54 White Blood Count 14.2 TH/MM3 12.1 TH/MM3 11.8 TH/MM3 Red Blood Count 3.74 MIL/MM3 3.43 MIL/MM3 3.54 MIL/MM3 Hemoglobin 10.9 GM/DL 10.2 GM/DL 10.0 GM/DL Hematocrit 33.6 % 30.9 % 31.9 % Mean Corpuscular Volume 89.7 FL 90.1 FL 90.0 FL Mean Corpuscular Hemoglobin 29.0 PG 29.6 PG 28.3 PG Mean Corpuscular Hemoglobin Concent 32.3 % 32.9 % 31.4 % Red Cell Distribution Width 19.2 % 19.8 % 19.5 % Platelet Count 253 TH/MM3 208 TH/MM3 220 TH/MM3 Mean Platelet Volume 8.0 FL 8.3 FL 8.4 FL Neutrophils (%) (Auto) 93.9 % 93.7 % Lymphocytes (%) (Auto) 0.9 % 1.2 % Monocytes (%) (Auto) 5.0 % 4.6 % Eosinophils (%) (Auto) 0.0 % 0.0 % Basophils (%) (Auto) 0.2 % 0.5 % Neutrophils # (Auto) 13.3 TH/MM3 11.0 TH/MM3 Lymphocytes # (Auto) 0.1 TH/MM3 0.1 TH/MM3 Monocytes # (Auto) 0.7 TH/MM3 0.5 TH/MM3 Eosinophils # (Auto) 0.0 TH/MM3 0.0 TH/MM3 Basophils # (Auto) 0.0 TH/MM3 0.1 TH/MM3 CBC Comment DIFF FINAL DIFF FINAL Differential Comment Laboratory Tests Test 09/06/17 05:05 09/06/17 14:38 09/07/17 05:54 Blood Urea Nitrogen 32 MG/DL 34 MG/DL Creatinine 1.01 MG/DL 0.98 MG/DL Random Glucose 193 MG/DL 154 MG/DL Calcium Level 8.0 MG/DL 8.0 MG/DL Phosphorus Level 2.6 MG/DL 3.6 MG/DL Magnesium Level 2.4 MG/DL 2.4 MG/DL Sodium Level 146 MEQ/L 149 MEQ/L Potassium Level 4.2 MEQ/L 4.6 MEQ/L Chloride Level 106 MEQ/L 108 MEQ/L Carbon Dioxide Level 31.9 MEQ/L 34.5 MEQ/L Anion Gap 8 MEQ/L 7 MEQ/L Estimat Glomerular Filtration Rate 75 ML/MIN 78 ML/MIN Total Creatine Kinase 25 U/L Troponin I 0.82 NG/ML 1.06 NG/ML Total Protein 5.7 GM/DL Albumin 2.1 GM/DL Alkaline Phosphatase 84 U/L Aspartate Amino Transf (AST/SGOT) 30 U/L Alanine Aminotransferase (ALT/SGPT) 55 U/L Total Bilirubin 0.4 MG/DL Last 48 hours Impressions Chest X-Ray 09/07/17 0600 Signed Impressions: Service Date/Time: Thursday, September 07, 2017 04:21 - CONCLUSION: Increasing consolidation left lower lobe a combination of airspace disease and pleural effusion. Lius Castro MD Chest X-Ray 09/06/17 0600 Signed Impressions: Service Date/Time: Wednesday, September 06, 2017 03:03 - CONCLUSION: Improving aeration Dmitri Mohan MD IMAGING: Chest X-Ray 09/02/17 0000 Signed Impressions: Service Date/Time: Saturday, September 02, 2017 06:32 - CONCLUSION: Bilateral airspace disease with interval worsening in the left base. Possible developing left-sided effusion. Jaret Crouch MD Abdomen X-Ray 08/31/17 0000 Signed Impressions: Service Date/Time: Thursday, August 31, 2017 20:34 - CONCLUSION: 1. Nasogastric tube tip in distal stomach. Davdi Jay MD CT Angiography 08/29/17 1849 Signed Impressions: Service Date/Time: Tuesday, August 29, 2017 19:36 - CONCLUSION: 1. Multilobar consolidation. 2. No evidence for pulmonary embolism. 3. Extensive coronary calcifications Pk Bae MD PHYSICAL EXAMINATION: GENERAL: On the ventilator. HEENT: Pupils reactive to light. No icterus. Moist oral mucosa. NECK: No swelling. No adenopathy. LUNGS: Better air movement. No audible rhonchi. HEART: Regular rate and rhythm. Slight systolic murmur at the left sternal border. ABDOMEN: Bowel sounds present, soft, nontender. EXTREMITIES: Ecchymosis at the right upper extremity. trace edema. No clubbing or cyanosis. SKIN: No diffuse rash. NEUROLOGIC: Unable to assess. PSYCHIATRIC: Unable to assess. IMPRESSION: 1. Bilateral pneumonia due to Pseudomonas. 2. Acute respiratory failure. 3. History of lung cancer. 4. One positive blood culture from 08/29 showing Staphylococcus species coagulase negative. Very likely contamination. RECOMMENDATIONS: 1. Continue piperacillin/tazobactam. 2. Continue Levaquin. 3. Follow clinical status. Herve Zarate MD September 07, 2017 19:02
[2017-09-07] MEDS: ISOSORBIDE DINITRATE 10 MG TAB PO SCH (21:28)
[2017-09-07] MEDS: hydrALAZINE HCL 25 MG TAB PO SCH (21:28)
[2017-09-08] VITALS (25 sets, daily range): BP systolic 114–158; BP diastolic 60–90; PULSE 56–127; RESP 16–18; TEMP 98.3–99; O2SAT 91–99
[2017-09-08] MEDS: fentaNYL DRIP 250 ML IV PRN ×2 (00:16→17:50)
[2017-09-08] MEDS: PROPOFOL 1000 MG/100 ML INJ 100 ML IV PRN ×4 (00:16→22:11)
[2017-09-08] MEDS: AMIODARONE INJ 450 MG in SODIUM CHLOR 0.9% (EXCEL) INJ 241 ML IV PRN (00:16)
[2017-09-08] MEDS: PIPERACIL-TAZO 4.5 GM PREMIX 100 ML IV SCH ×4 (00:17→21:26)
[2017-09-08] MEDS: methylPREDNISolone SOD SUCC 40 MG/1 ML VIAL IV PUSH SCH ×2 (00:17→14:26)
[2017-09-08] MEDS: CHLORHEXIDINE GLUCONATE 2 % 1 PACK (2 CLOTHS) TOP SCH (03:38)
[2017-09-08] MEDS: RESP: ALBUTEROL 2.5 MG/IPRATROPIUM 0.5 MG NEB (SCH) NEB ×6 (04:21→23:53)
[2017-09-08] MEDS: FREE WATER NG SCH ×3 (04:44→17:50)
[2017-09-08] MEDS: INSULIN NovoLIN REGULAR SUPPLEMENTAL SCALE SQ SCH ×3 (04:44→18:00)
[2017-09-08] MEDS: hydrALAZINE HCL 25 MG TAB PO SCH ×3 (04:59→21:26)
[2017-09-08] MEDS: DILTIAZEM HCL 90 MG TAB PO SCH ×4 (04:59→21:26)
[2017-09-08] MEDS: ARTIFICIAL TEARS OPTH SOLN 15 ML BTL EACH EYE SCH ×3 (04:59→21:27)
[2017-09-08] MEDS: ISOSORBIDE DINITRATE 10 MG TAB PO SCH ×3 (04:59→21:26)
--- NOTE | 2017-09-08 05:42 | RADRPT ---
EXAM DATE/TIME: 09/08/2017 04:07 [place] COMPARISON: CHEST SINGLE AP, September 07, 2017, 4:21. INDICATIONS : Short of breath. MEDICAL HISTORY : Hypertension. Chronic obstructive pulmonary disease. Carcinoma, lung. SURGICAL HISTORY : None. ENCOUNTER: Subsequent ACUITY: 1 week PAIN SCORE: 0/10 LOCATION: Bilateral chest FINDINGS: A single view of the chest demonstrates the endotracheal tube and nasogastric both in good position. Left hemidiaphragm is elevated. Persistent consolidation left lung base. Diffuse bony vascular promin ence. Bilateral pleural effusions unchanged. The cardiomediastinal contours are unremarkable. Elmer us structures are intact. CONCLUSION: Stable appearance to the chest. Persistent consolidation left lower lobe. Luis Castro MD on September 08, 2017 at 5:40 Board Certified Radiologist. This report was verified electronically.
[2017-09-08 07:08] LABS: AUTOMATED NEUTROPHIL # 15.3 TH/MM3 (1.8-7.7); BASOPHIL % 0.2 % (0.0-2.0); HEMATOCRIT 29.5 % (39.0-51.0); HEMOGLOBIN 9.4 GM/DL (13.0-17.0); LYMPH % 1.4 % (9.0-44.0); LYMPHOCYTE # 0.2 TH/MM3 (1.0-4.8); MEAN CELL VOLUME 91.2 FL (80.0-100.0); MEAN CORPUSCULAR HGB CONC 31.7 % (32.0-36.0); MEAN PLATELET VOLUME 8.2 FL (7.0-11.0); MONO % 6.4 % (0.0-8.0); MONOCYTE # 1.1 TH/MM3 (0-0.9); PLATELET COUNT 270 TH/MM3 (150-450); RED BLOOD COUNT 3.24 MIL/MM3 (4.50-5.90); RED CELL DISTRIBUTION WIDTH 19.5 % (11.6-17.2); WHITE BLOOD COUNT 16.6 TH/MM3 (4.0-11.0)
[2017-09-08 07:16] LABS: ALBUMIN 2.3 GM/DL (3.4-5.0); BICARBONATE 30.8 MEQ/L (21.0-32.0); BLOOD UREA NITROGEN 39 MG/DL (7-18); CALCIUM 7.9 MG/DL (8.5-10.1); CHLORIDE 107 MEQ/L (98-107); GLOMERULAR FILTRATION RATE 76 ML/MIN (>89); GLUCOSE,RANDOM 173 MG/DL (74-106); MAGNESIUM 2.3 MG/DL (1.5-2.5); SODIUM (NA) 146 MEQ/L (136-145)
[2017-09-08 07:17] LABS: ALT (GPT) 58 U/L (12-78); AST (GOT) 28 U/L (15-37); CHOLESTEROL 174 MG/DL (120-200); PHOSPHORUS 4.5 MG/DL (2.5-4.9); TRIGLYCERIDES 178 MG/DL (42-150)
[2017-09-08 07:20] LABS: ALKALINE PHOSPHATASE 78 U/L (45-117); CHOLESTEROL/ HDL RATIO 4.72 RATIO; HDL CHOLESTEROL 36.8 MG/DL (40.0-60.0); LDL CHOLESTEROL 102 MG/DL (0-99); TOTAL BILIRUBIN ADULT 0.4 MG/DL (0.2-1.0); TOTAL PROTEIN 5.7 GM/DL (6.4-8.2)
[2017-09-08 07:25] LABS: TROPONIN I 0.83 NG/ML (0.02-0.05)
[2017-09-08] MEDS: CHLORHEXIDINE 0.12% (ORAL KIT) 15 ML CUP MT SCH ×2 (08:30→19:42)
[2017-09-08] MEDS: LACTULOSE SYRUP 20 GM/30 ML CUP PO SCH (08:30)
[2017-09-08] MEDS: METOPROLOL TARTRATE 50 MG TAB PO SCH ×2 (08:30→21:26)
[2017-09-08] MEDS: LANSOPRAZOLE SOLUTAB 30 MG TAB NG SCH (08:30)
[2017-09-08] MEDS: ASPIRIN 81 MG CHEW TAB CHEW SCH (08:30)
[2017-09-08] MEDS: PRAVASTATIN SOD 10 MG TAB PO SCH (08:31)
[2017-09-08] MEDS: CLOPIDOGREL 75 MG TAB PO SCH (08:37)
[2017-09-08] MEDS: DOCUSATE SODIUM 50 MG/SENNA 8.6 MG TAB PO SCH ×2 (08:37→21:26)
[2017-09-08 09:02] LABS: BANDS 2 % (0-6); LYMPHOCYTES 1 % (9-44); METAMYELOCYTES 3 % (0-1); MONOCYTES 2 % (0-8); MYELOCYTES 4 % (0-0); NEUTROPHIL # MANUAL DIFF 16.1 TH/MM3 (1.8-7.7); POLYS (SEG NEUTROPHILS) 87 % (16-70); PROMYELOCYTES 1 % (0-0)
[2017-09-08 09:03] LABS: OVALOCYTES 1+ (NORMAL)
--- NOTE | 2017-09-08 09:21 | MB ---
cc: Bernard Nava MD DATE: 09/08/2017 REASON FOR CONSULTATION: Evaluation of tachyarrhythmia. HISTORY OF PRESENT ILLNESS: Robert Adams is a 61-year-old unfortunate man with lung cancer. He has undergone chemo and radiation therapy. He has had multiple pulmonary problems. He was admitted in April. He was admitted this spring and now is admitted with having had atrial flutter with rapid conduction and getting admitted. He converted to sinus rhythm yesterday. While in the process of trying to be weaned, he went into rapid atrial fibrillation this morning and is now back in sinus rhythm again. He has received IV amiodarone on more than one occasion. Was not put on chronic oral amiodarone yet. The patient's cardiac enzymes are also elevated. No history can be obtained from the patient as he is intubated. PAST MEDICAL HISTORY: Includes hypertension, coronary artery disease with previous LAD stent in 2013, peripheral arterial disease. He has scars in both groins and apparently has had some bypass surgeries done. COPD. Past history of alcohol. FAMILY HISTORY: Positive for coronary artery disease. SOCIAL HISTORY: Notable for smoking and drinking. He does not have a spouse. REVIEW OF SYSTEMS: Unobtainable. PHYSICAL EXAMINATION: GENERAL: This is a man who appears older than his stated age. VITAL SIGNS: Charted. HEENT: Exam unremarkable. NECK: Shows no JVD. CHEST: Shows marked rhonchi. CARDIAC: S1, S2, regular rate and rhythm. Cannot appreciate murmurs or gallops at this time. ABDOMEN: Soft. EXTREMITIES: Reveal 2+ diffuse edema arms and legs. LABORATORY DATA: EKG yesterday showed 2:1 atrial flutter. Troponins have gone up consistent with a non-STEMI. IMPRESSION: Unfortunate 61-year-old man with lung cancer. He has been in and out of atrial arrhythmias. He has now had atrial flutter. He is converted to sinus rhythm. He probably had a non-STEMI. Prognosis is terrible. PLAN: Treat his coronary disease medically. Infarct was secondary to the rapid tachycardia. I am going to start oral amiodarone loading. Palliative care is following. Bernard Nava MD VEW/DL , 09:05 AM , 09:19 AM
--- NOTE | 2017-09-08 11:17 | HHI.CCPN ---
Subjective Remarks/Hospital Course 08/29: This is a 61-year-old male with a history of lung cancer undergoing current chemotherapy and radiation who was recently admitted on 07/19 for aspiration pneumonia. During that admission he did have episodes of paroxysmal atrial fibrillation and had an echo from 04/2017 showing an EF of 50-55%. He represents today to the emergency department with acute shortness of breath since last night. Per the ER documentation, he denies any coughing, fever, chills, or other recent symptoms or changes other than the new dyspnea. In the emergency department he was found to be in A. fib with RVR. This initially converted to sinus rhythm 1 after diltiazem 20 mg IV bolus, but then very quickly went back into atrial for ablation with rapid ventricular response. 2 doses of adenosine were not able to convert it. The patient was loaded with amiodarone and infusion was started. After this, the patient become acutely hypoxemic requiring emergent intubation. Please refer to the emergency room physician documentation for additional details regarding the decompensation. When I came to evaluate patient, the patient was recently intubated, sedated. No additional information is available from the patient due to his clinical condition. Review of systems is unobtainable. Critical care medicine is consulted to evaluate manage his acute hypoxic respiratory failure along with his acute supraventricular tachycardia. 08/30: Patient remains intubated and sedated. FiO2 down to 0.5. Patient continues to be on amiodarone infusion and heparin drip. Sedation achieved with propofol and fentanyl. Patient remains hypothermic requiring Gracia hugger, urine output 350 mL's documented since admission. 08/31: No events over the night. Patient remains intubated and sedated. Hemoglobin more stable posttransfusion. Hypothermia resolved, T-max of 100.3. Urine output remains low, 635 mL's over the last 24 hours. Oxygenation is improved. No family present at bedside. Patient remains in sinus rhythm, on amiodarone infusion. No report of melena, hematochezia or coffee-ground aspirate from NG tube. Morning chest x-ray reviewed, worsening infiltrates over the right thorax, unchanged consolidation over the left. 09/01: Afebrile. Patient was extubated yesterday afternoon and emergently intubated 1030 last night secondary to hypoxemic respiratory failure. This x- ray pending this a.m.. The patient also was noted to have severe metabolic acidosis and sodium bicarbonate infusion was initiated. Patient noted to have Pseudomonas, and placed on Zosyn. Patient continues to have leukocytosis with worsening pneumonia ID has been consulted appreciate recommendations. Patient previously DNR palliative has been consulted up on hypoxemic respiratory failure patient was noted to request intubation at that time. Palliative care consult pending. Patient continues on amiodarone infusion now in sinus rhythm. Amiodarone infusion discontinued the patient continued on metoprolol and Cardizem home medications. Hemoglobin appears stable status post 2 units transfusion 48 hours ago. Will do serial H&H's aspirin reinitiated will hold Plavix for now, and continue to follow. Subcu heparin initiated. 09/02: Afebrile. Hemoglobin stable for the last 24 hours. Plan to restart tube feeds this a.m.. Metabolic acidosis resolved, patient's sodium bicarbonate discontinued. Patient requiring increasing FiO2 requirements during the night , now at 100% ABG pending. This am chest x-ray worsening. 09/03: Late entry note patient seen at 8:15 AM .afebrile. Chest x-ray continues to worsen. FiO2 requirement slightly decreased we will attempt CPAP trials today. 09/04: Afebrile. patient awake and following commands this a.m. Currently on CPAP trials. FiO2 weaned to 45% 09/05: Afebrile. Patient tolerating CPAP trials. She noted to have elevated blood glucose level secondary methylprednisolone. Chest x-ray now improving methylprednisolone taper initiated. Patient noted to still have episodes of hypertension Cardizem increased to 90 mg every 6 hours. 09/06: Patient currently in a flutter. Received adenosine 12 mg 1 which feels a flutter. Echocardiogram CPK and troponin ordered. TSH normal during this hospitalization. Potassium magnesium both normalized. Arousable and follows commands. Subjective 09/07: Patient is currently on PSV trial 20/8 ~35%. Patient oscillating on CODE STATUS. Tolerating tube feeds. Remains in normal sinus rhythm on amiodarone drip. 09/08: No events over the night. CPAP trial was attempted this morning patient went into A. fib with RVR after 15 minutes. Patient was switched back to full support, and converted to sinus rhythm. He continues to be on amiodarone infusion and heparin drip. He is lethargic but easily arousable able to follow some commands. FiO2 at 0.5 and PEEP at 8. T-max of 99. Objective Vital Signs Date Time Temp Pulse Resp B/P (MAP) Pulse Ox O2 Delivery O2 Flow Rate FiO2 09/08/17 10:10 50 09/08/17 10:00 56 09/08/17 08:00 98.4 18 140/66 (90) 98 09/08/17 07:00 Mechanical Ventilator Intake and Output 09/08/17 09/08/17 09/09/17 08:00 16:00 00:00 Intake Total 1770 ml Output Total 600 ml Balance 1170 ml Result Diagram: 09/08/17 0608 09/08/17 0608 Imaging Last 24 hours Impressions Chest X-Ray 09/08/17 06 Signed Impressions: Service Date/Time: Friday, September 08, 2017 04:07 - CONCLUSION: Stable appearance to the chest. Persistent consolidation left lower lobe. Luis Castro MD Last Impressions Chest X-Ray 09/07/17 0600 Signed Impressions: Service Date/Time: Thursday, September 07, 2017 04:21 - CONCLUSION: Increasing consolidation left lower lobe a combination of airspace disease and pleural effusion. Luis Castro MD Abdomen X-Ray 08/31/17 0000 Signed Impressions: Service Date/Time: Thursday, August 31, 2017 20:34 - CONCLUSION: 1. Nasogastric tube tip in distal stomach. David Jay MD CT Angiography 08/29/17 1849 Signed Impressions: Service Date/Time: Tuesday, August 29, 2017 19:36 - CONCLUSION: 1. Multilobar consolidation. 2. No evidence for pulmonary embolism. 3. Extensive coronary calcifications Pk Bae MD Objective Remarks General - elderly gentleman, intubated, lethargic, arousable, chronically ill- appearing HEENT - pupils equal, reactive, sclerae anicteric, neck supple, no neck rigidity , neck veins not distended, no carotid bruit, orally intubated CV - regular heart sounds, no murmurs appreciated Chest - diffuse coarse breath sounds b/l, good air entry, no wheezes Abdomen - soft, non-tender, non-distended, BS present, no hepatomegaly, no splenomegaly Skin - no rashes, no cyanosis Extremities - warm and well perfused, no edema, + peripheral pulses, Neuro - pupils are equal and reactive, opens eyes to voice stimuli, follows some commands with all 4 extremities but he is extremely weak A/P Problem List: (1) OBED (acute kidney injury) ICD Code: N17.9 - Acute kidney failure, unspecified (2) Severe protein-calorie malnutrition ICD Code: E43 - Unspecified severe protein-calorie malnutrition Status: Chronic (3) Shortness of breath ICD Code: R06.02 - Shortness of breath Status: Acute (4) Tobacco abuse ICD Code: Z72.0 - Tobacco use Status: Chronic (5) Paroxysmal A-fib ICD Code: I48.0 - Paroxysmal atrial fibrillation Status: Chronic (6) Atrial fibrillation with RVR ICD Code: I48.91 - Unspecified atrial fibrillation Status: Resolved (7) PNA (pneumonia) ICD Code: J18.9 - Pneumonia, unspecified organism (8) COPD (chronic obstructive pulmonary disease) ICD Code: J44.9 - Chronic obstructive pulmonary disease, unspecified (9) Lung cancer ICD Code: C34.90 - Malignant neoplasm of unspecified part of unspecified bronchus or lung (10) Debility ICD Code: R53.81 - Other malaise Status: Chronic (11) Pain ICD Code: R52 - Pain, unspecified Status: Chronic (12) Lung consolidation ICD Code: J18.1 - Lobar pneumonia, unspecified organism Status: Acute (13) Acute respiratory failure with hypoxia and hypercarbia ICD Code: J96.01 - Acute respiratory failure with hypoxia; J96.02 - Acute respiratory failure with hypercapnia Assessment and Plan 1. Acute hypoxic and hypercapnic respiratory failure 2. Pseudomonas pneumonia 3. Acute COPD exacerbation -resolved 4. Lung cancer currently undergoing radiation therapy and chemotherapy 5. Atrial fibrillation with rapid ventricular response -goes in and out of A. fib, currently on amiodarone infusion 6. Elevated Troponin - trending down 7. Acute blood loss anemia -resolved 8. OBED -with low urine output 1. Continue PRVC, patient is synchronized with the vent, no auto PEEP, PIP is 29 2. Vent bundle and bronchodilators with ipratropium and levalbuterol 3. Taper steroids 4. CPAP trials as tolerated 5. Minimize sedation 6. Continue amiodarone and heparin drip, followed by cardiology 7. Follow-up cultures 8. 5/1 metoprolol tartrate 50 mg twice daily. Cardizem increased to 90 mg 4 times daily. Home medication is 240 mg daily 9. Holding lisinopril 5 mg daily medication. Add isosorbide mononitrate 10 mg 3 times daily and hydralazine 25 mg 3 times daily 10. On statin, aspirin and clopidogrel 11. On antibiotics, followed by ID 12. Continue tube feeds, currently at goal 13. GI prophylaxis 14. DVT prophylaxis -on heparin drip No family present at bedside. Level 2 follow-up Problem Qualifiers (1) PNA (pneumonia): Qualified Codes: J18.1 - Lobar pneumonia, unspecified organism Sunny Herrera MD September 08, 2017 11:17
[2017-09-08] MEDS: LEVOFLOXACIN 250 MG PREMIX INJ 50 ML IV SCH (12:48)
--- NOTE | 2017-09-08 15:28 | HHI.IDPN ---
Note Infectious Disease Note Patient continues to undergo CPAP trials. Currently on the vent. Very alert and awake. Notes head to questions. Afebrile. Presented to the emergency department on 08/29 with respiratory symptoms. Intubated in the ED. PAST MEDICAL HISTORY: Left lung cancer, being treated with chemotherapy and radiation, coronary artery disease, peripheral arterial disease, COPD, hypertension, anxiety, depression, bilateral cataract surgery, recent pneumonia due to Pseudomonas in 04/2017 and 07/2017, history of iliac artery bypass surgery. ALLERGIES: NO KNOWN DRUG ALLERGIES. Current Medications Medications (Trade) Dose Ordered Sig/[place] Route PRN Reason Start Time Stop Time Status Last Admin Dose Admin Sodium Chloride (NS Flush) 2 ml UNSCH PRN IVF FLUSH AFTER USING IV ACCESS 08/29/17 18:00 09/07/17 08:49 Potassium Chloride 100 ml @ 50 mls/hr Q2H PRN IV For Potassium 2.8 - 3.2 mEq/L 08/29/17 18:45 Potassium Chloride 100 ml @ 50 mls/hr Q2H PRN IV For Potassium 2.8 - 3.2 mEq/L 08/29/17 18:45 09/03/17 23:09 Potassium Bicarb/ Potassium Chloride (K-Lyte Cl Eff) 50 meq UNSCH PRN PO For Potassium 3.3 - 3.5 mEq/L 08/29/17 18:45 Potassium Chloride 100 ml @ 25 mls/hr UNSCH PRN IV For Potassium 3.3 - 3.5 mEq/L 08/29/17 18:45 Potassium Chloride 100 ml @ 50 mls/hr Q2H PRN IV For Potassium 3.3 - 3.5 mEq/L 08/29/17 18:45 Magnesium Sulfate 4 gm/Sodium Chloride 100 ml @ 50 mls/hr UNSCH PRN IV For Magnesium 0.9 - 1.1 mg/dL 08/29/17 18:45 Magnesium Oxide (Mag-Ox) 800 mg UNSCH PRN PO For Magnesium 1.2 - 1.6 mg/dL 08/29/17 18:45 Magnesium Sulfate 2 gm/Sodium Chloride 100 ml @ 50 mls/hr UNSCH PRN IV For Magnesium 1.2 - 1.6 mg/dL 08/29/17 18:45 Potassium Phosphate (K-Phos) 2,000 mg Q4H PRN PO For Phosphorus < 2.5 mg/dL 08/29/17 18:45 Sodium Phosphate 30 mmol/Sodium Chloride 250 ml @ 42 mls/hr UNSCH PRN IV For Phosphorus < 2.5 mg/dL 08/29/17 18:45 Potassium Phosphate (K-Phos) 2,000 mg UNSCH PRN PO/TUBE SEE LABEL COMMENTS 08/29/17 18:45 Potassium Phosphate 30 mmol/ Sodium Chloride 260 ml @ 42 mls/hr UNSCH PRN IV SEE LABEL COMMENTS 08/29/17 18:45 Dextrose (D50w (Vial) Inj) 25 ml UNSCH PRN IV PUSH HYPOGLYCEMIA-SEE COMMENTS 08/29/17 18:45 Insulin Human Regular (NovoLIN R SUPPLEMENTAL SCALE) 1 Q6HR SQ 08/30/17 00:00 09/08/17 11:32 Piperacillin Sod/ Tazobactam Sod 100 ml @ 200 mls/hr Q6H IV 08/29/17 20:00 09/12/17 19:59 09/08/17 14:26 Ondansetron HCl (Zofran Inj) 4 mg Q6H PRN IV PUSH NAUSEA OR VOMITING 08/29/17 18:45 08/31/17 19:59 Miscellaneous Information ([facility] [place] Nursing Information) 1 Q361D XX 08/29/17 18:45 08/29/17 18:45 Chlorhexidine Gluconate (Chlorhexidine 2% Cloth) Taper DAILY@04 TOP 08/30/17 04:00 08/26/18 03:59 09/08/17 03:38 Chlorhexidine Gluconate (Chlorhexidine 2% Cloth) 3 pack UNSCH PRN TOP HYGIENIC CARE 08/29/17 18:45 Senna/Docusate Sodium (Nata-Colace) 1 tab BID PO 08/29/17 21:00 09/07/17 21:28 Magnesium Hydroxide (Milk Of Magnesia Liq) 30 ml Q12H PRN PO Mild constipation 08/29/17 18:45 Sodium Chloride (NS Flush) 2 ml UNSCH PRN IVF FLUSH AFTER USING IV ACCESS 08/29/17 19:30 09/07/17 08:49 Chlorhexidine Gluconate (Peridex 0.12% Liq) 15 ml BID@08,20 MT 09/01/17 08:00 09/08/17 08:30 Propofol 100 ml @ 1.65 mls/hr TITRATE PRN IV SEDATION 08/31/17 22:30 09/08/17 06:27 Pravastatin Sodium (Pravachol) 10 mg DAILY PO 09/01/17 09:00 09/08/17 08:31 Metoprolol Tartrate (Lopressor) 50 mg Q12HR PO 09/01/17 09:00 09/08/17 08:30 Aspirin (Aspirin Chew) 81 mg DAILY CHEW 09/01/17 09:00 09/08/17 08:30 Sennosides (Senokot) 17.2 mg Q12H PRN PO Moderate constipation 09/02/17 08:15 Bisacodyl (Dulcolax Supp) 10 mg DAILY PRN RECTAL SEVERE CONSITIPATION 09/02/17 08:15 Lactulose (Lactulose Liq) 30 ml DAILY PRN PO SEVERE CONSITIPATION 09/02/17 08:15 Lactulose (Lactulose Liq) 30 ml DAILY PO 09/02/17 09:00 09/08/17 08:30 Fentanyl Citrate 250 ml @ 5 mls/hr TITRATE PRN IV SEDATION 09/02/17 17:30 09/08/17 00:16 Levofloxacin/ Dextrose 50 ml @ 50 mls/hr Q24H IV 09/04/17 13:00 09/08/17 12:48 Labetalol HCl (Trandate Inj) 10 mg Q4H PRN IV PUSH SBP>160, DBP>90 09/03/17 22:00 09/06/17 11:12 Hydralazine HCl (Apresoline Inj) 20 mg Q4H PRN IV PUSH SBP>160, DBP>90 09/03/17 22:00 09/07/17 15:08 Methylprednisolone Sodium Succinate (SoluMEDROL INJ) 40 mg Q12H IV PUSH 09/06/17 02:00 09/08/17 14:26 Diltiazem HCl (Cardizem) 90 mg Q6H PO 09/05/17 15:00 09/08/17 14:26 Amiodarone HCl 450 mg/Sodium Chloride 250 ml @ 33.33 mls/ hr Q7H31M PRN IV Per Protocol 09/06/17 12:33 09/08/17 00:16 Albuterol/ Ipratropium (Duoneb Neb) 1 ampule Q4HR NEB NEB 09/06/17 16:00 09/08/17 11:41 Albuterol Sulfate (Albuterol Neb) 2.5 mg Q2HR NEB PRN NEB dyspnea 09/06/17 12:30 Artificial Tears (Tears Naturale Opth Soln) 1 drop Q8HR EACH EYE 09/06/17 14:00 09/08/17 14:26 Lansoprazole (Prevacid Odt) 30 mg DAILY NG 09/07/17 09:00 09/08/17 08:30 Heparin Sodium/ Dextrose 250 ml @ 10 mls/hr TITRATE PRN IV Coagulation Management 09/06/17 12:45 09/07/17 12:32 Clopidogrel Bisulfate (Plavix) 75 mg DAILY PO 09/07/17 09:00 09/08/17 08:37 Water (Free Water) VOLUME: 200 ML Q6HR NG 09/07/17 18:00 09/08/17 11:32 Labetalol HCl (Trandate Inj) 10 mg Q1HR PRN IV PUSH SBP>160, DBP>90, HR>65 09/07/17 16:00 09/07/17 18:09 Hydralazine HCl (Apresoline Inj) 10 mg Q1HR PRN IV PUSH SBP>160, DBP>90 09/07/17 16:00 Nitroglycerin (Nitroglycerin 2% Oint) 2 inch Q6HR PRN TOPICAL SBP>160, DBP>90 09/07/17 16:00 Isosorbide Dinitrate (Isordil) 10 mg Q8HR PO 09/07/17 22:00 09/08/17 14:26 Hydralazine HCl (Apresoline) 25 mg Q8HR PO 09/07/17 22:00 09/08/17 14:26 Amiodarone HCl (Cordarone) 400 mg Q12HR NG 09/08/17 21:00 Objective: Vital Signs Date Time Temp Pulse Resp B/P (MAP) Pulse Ox O2 Delivery O2 Flow Rate FiO2 09/08/17 14:17 95 45 09/08/17 14:17 50 09/08/17 14:00 83 09/08/17 12:00 98.3 84 156/89 (111) 96 09/08/17 12:00 91 127/60 (82) 09/08/17 12:00 45 09/08/17 12:00 84 09/08/17 11:41 97 45 09/08/17 11:08 92 124/60 (81) 09/08/17 11:00 50 09/08/17 11:00 73 144/76 (98) 96 09/08/17 10:50 45 09/08/17 10:10 50 09/08/17 10:00 56 09/08/17 10:00 56 114/63 (80) 97 09/08/17 09:00 69 118/65 (82) 97 09/08/17 08:20 95 09/08/17 08:00 98.4 127 18 140/66 (90) 98 09/08/17 08:00 98 50 09/08/17 08:00 127 09/08/17 08:00 50 09/08/17 07:45 91 50 09/08/17 07:45 50 09/08/17 07:00 98 Mechanical Ventilator 09/08/17 06:00 80 09/08/17 04:22 96 50 09/08/17 04:00 98.6 78 18 147/80 (102) 97 09/08/17 04:00 45 09/08/17 04:00 78 09/08/17 02:00 78 09/08/17 00:16 81 135/77 09/08/17 00:00 81 09/08/17 00:00 45 09/08/17 00:00 99.0 81 18 135/77 (96) 99 09/07/17 23:20 93 50 09/07/17 22:00 98 09/07/17 20:00 98.9 93 18 165/98 (120) 95 09/07/17 20:00 93 09/07/17 20:00 45 09/07/17 19:41 96 50 09/07/17 19:00 100 Mechanical Ventilator 09/07/17 18:30 85 155/91 (112) 93 09/07/17 18:00 99 09/07/17 18:00 99 169/98 (121) 95 09/07/17 17:00 97 157/96 (116) 96 09/07/17 16:15 50 09/07/17 16:00 35 09/07/17 16:00 98.3 90 147/85 (105) 92 09/07/17 16:00 90 09/07/17 15:44 94 35 09/07/17 15:30 90 137/77 (97) 96 Laboratory Tests Test 09/07/17 05:54 09/08/17 06:08 White Blood Count 11.8 TH/MM3 16.6 TH/MM3 Red Blood Count 3.54 MIL/MM3 3.24 MIL/MM3 Hemoglobin 10.0 GM/DL 9.4 GM/DL Hematocrit 31.9 % 29.5 % Mean Corpuscular Volume 90.0 FL 91.2 FL Mean Corpuscular Hemoglobin 28.3 PG 29.0 PG Mean Corpuscular Hemoglobin Concent 31.4 % 31.7 % Red Cell Distribution Width 19.5 % 19.5 % Platelet Count 220 TH/MM3 270 TH/MM3 Mean Platelet Volume 8.4 FL 8.2 FL Neutrophils (%) (Auto) 93.7 % 92.0 % Lymphocytes (%) (Auto) 1.2 % 1.4 % Monocytes (%) (Auto) 4.6 % 6.4 % Eosinophils (%) (Auto) 0.0 % 0.0 % Basophils (%) (Auto) 0.5 % 0.2 % Neutrophils # (Auto) 11.0 TH/MM3 15.3 TH/MM3 Lymphocytes # (Auto) 0.1 TH/MM3 0.2 TH/MM3 Monocytes # (Auto) 0.5 TH/MM3 1.1 TH/MM3 Eosinophils # (Auto) 0.0 TH/MM3 0.0 TH/MM3 Basophils # (Auto) 0.1 TH/MM3 0.0 TH/MM3 CBC Comment DIFF FINAL AUTO DIFF Differential Comment FINAL DIFF MANUAL Differential Total Cells Counted 100 Neutrophils % (Manual) 87 % Band Neutrophils % 2 % Lymphocytes % 1 % Monocytes % 2 % Neutrophils # (Manual) 16.1 TH/MM3 Metamyelocytes 3 % Myelocytes 4 % Promyelocytes 1 % Platelet Estimate NORMAL Platelet Morphology Comment NORMAL Basophilic Stippling FAINT Ovalocytes 1+ Laboratory Tests Test 09/07/17 05:54 09/08/17 06:08 Blood Urea Nitrogen 34 MG/DL 39 MG/DL Creatinine 0.98 MG/DL 1.00 MG/DL Random Glucose 154 MG/DL 173 MG/DL Total Protein 5.7 GM/DL 5.7 GM/DL Albumin 2.1 GM/DL 2.3 GM/DL Calcium Level 8.0 MG/DL 7.9 MG/DL Phosphorus Level 3.6 MG/DL 4.5 MG/DL Magnesium Level 2.4 MG/DL 2.3 MG/DL Alkaline Phosphatase 84 U/L 78 U/L Aspartate Amino Transf (AST/SGOT) 30 U/L 28 U/L Alanine Aminotransferase (ALT/SGPT) 55 U/L 58 U/L Total Bilirubin 0.4 MG/DL 0.4 MG/DL Sodium Level 149 MEQ/L 146 MEQ/L Potassium Level 4.6 MEQ/L 4.4 MEQ/L Chloride Level 108 MEQ/L 107 MEQ/L Carbon Dioxide Level 34.5 MEQ/L 30.8 MEQ/L Anion Gap 7 MEQ/L 8 MEQ/L Estimat Glomerular Filtration Rate 78 ML/MIN 76 ML/MIN Troponin I 1.06 NG/ML 0.83 NG/ML Triglycerides Level 178 MG/DL Cholesterol Level 174 MG/DL LDL Cholesterol 102 MG/DL HDL Cholesterol 36.8 MG/DL Cholesterol/HDL Ratio 4.72 RATIO IMAGING: Chest X-Ray 09/08/17 0600 Signed Impressions: Service Date/Time: Friday, September 08, 2017 04:07 - CONCLUSION: Stable appearance to the chest. Persistent consolidation left lower lobe. Luis Castro MD Chest X-Ray 09/07/17 0600 Signed Impressions: Service Date/Time: Thursday, September 07, 2017 04:21 - CONCLUSION: Increasing consolidation left lower lobe a combination of airspace disease and pleural effusion. Luis Castro MD Chest X-Ray 09/06/17 0600 Signed Impressions: Service Date/Time: Wednesday, September 06, 2017 03:03 - CONCLUSION: Improving aeration Dmitri Mohan MD Chest X-Ray 09/02/17 0000 Signed Impressions: Service Date/Time: Saturday, September 02, 2017 06:32 - CONCLUSION: Bilateral airspace disease with interval worsening in the left base. Possible developing left-sided effusion. Jaret Crouch MD Abdomen X-Ray 08/31/17 0000 Signed Impressions: Service Date/Time: Thursday, August 31, 2017 20:34 - CONCLUSION: 1. Nasogastric tube tip in distal stomach. David Jay MD CT Angiography 08/29/17 126 Signed Impressions: Service Date/Time: Tuesday, August 29, 2017 19:36 - CONCLUSION: 1. Multilobar consolidation. 2. No evidence for pulmonary embolism. 3. Extensive coronary calcifications Pk Bae MD PHYSICAL EXAMINATION: GENERAL: On the ventilator. HEENT: Pupils reactive to light. No icterus. Moist oral mucosa. NECK: No swelling. No adenopathy. LUNGS: Slight decreased breath sounds at the bases. Otherwise clear. HEART: Regular rate and rhythm. Slight systolic murmur at the left sternal border. ABDOMEN: Bowel sounds present, soft, nontender. EXTREMITIES: Ecchymosis and edema at both upper extremities. No clubbing or cyanosis. SKIN: No diffuse rash. NEUROLOGIC: Unable to assess. PSYCHIATRIC: Unable to assess. IMPRESSION: 1. Bilateral pneumonia due to Pseudomonas. 2. Acute respiratory failure. 3. History of lung cancer. RECOMMENDATIONS: 1. Continue piperacillin/tazobactam. 2. Continue Levaquin. 3. Continue to monitor clinical status. Herve Zarate MD September 08, 2017 15:28
--- NOTE | 2017-09-08 17:44 | HHI.HCPN ---
Reason for visit a. To assist with evaluation and management of symptoms including: Shortness of breath, pain, debility b. To assist medical decision maker(s) with: better understanding of current medical conditions; weighing benefits/burdens of medical treatment options; making medical treatment decisions. Subjective/Interval History Follow up medically necessary for symptom management and further clarification of goals of care. Patient seen and examined in MICU. Patient remains intubated, sedated and on mechanical ventilation. Patient keeps having tachyarrythmia. Cardiology Dr. Nava consulted 09/07/17 to evaluate and manage tachyarrhythmia, recommended treating patient's coronary disease medically and started patient on oral amiodarone. Amiodarone infusion discontinued. Per Bedside RN, patient went into atrial fibrillation with RVR this morning and reconverted to SR after 45minutes. 2D echo done 09/08, results pending. CPAP trial was attempted this morning and patient lasted 15 minutes before he went into atrial fibrillation with RVR. Patient was switched to full ventilator support with settings PRVC/ AC 18/550/1.0s/8/45%. Patient is currently on fentanyl infusion at 200 mcg/hr and propofol infusion at 40 mcg/kg/min. Laboratory workup today revealing WBC 16.6 , hemoglobin 9.4, hematocrit 29.5, platelet count 276, sodium 146, BUN 39, creatinine 1.0, troponin 0.83, total protein 5.7, albumin 2.3, triglycerides 178, cholesterol 174, LDL cholesterol 102, HDL cholesterol 36.8. Chest x-ray 09/08 revealed persistent consolidation left lower lobe. Telephone conversation with patient`s cousin Dahiana ([facility]). Updated on patient`s medical status. Patient`s cousin is hopeful that patient can get medically extubated and participate in making his own medical decision regarding code status. Family/friend interactions Telephone conversation with patient`s cousin Dahiana ([facility]) . Advance Directives Health Care Surrogate: Copy in medical record Advance Directive Specifics Date completed: [facility] -April 08, 2017 . Health Care Surrogate(s): [facility]- (Long time friend-15 yrs) Kay Rizvi [phone]- (July 2017) Alternate [facility]- Cousin- Dahiana Mayorga [phone] (will serve as HCS) . Objective Vital Signs Date Time Temp Pulse Resp B/P (MAP) Pulse Ox O2 Delivery O2 Flow Rate FiO2 09/08/17 16:00 98.8 77 132/71 (91) 94 09/08/17 16:00 77 09/08/17 16:00 45 09/08/17 16:00 77 09/08/17 15:32 94 45 09/08/17 15:00 86 158/90 (112) 92 09/08/17 14:17 95 45 09/08/17 14:17 50 09/08/17 14:00 83 09/08/17 14:00 83 154/84 (107) 91 09/08/17 13:00 83 155/87 (109) 95 09/08/17 12:00 98.3 84 156/89 (111) 96 09/08/17 12:00 45 09/08/17 12:00 84 09/08/17 11:41 97 45 09/08/17 11:00 50 09/08/17 11:00 73 144/76 (98) 96 09/08/17 10:50 45 09/08/17 10:10 50 09/08/17 10:00 56 09/08/17 10:00 56 114/63 (80) 97 09/08/17 09:00 69 118/65 (82) 97 09/08/17 08:20 95 09/08/17 08:00 98.4 127 18 140/66 (90) 98 09/08/17 08:00 98 50 09/08/17 08:00 127 09/08/17 08:00 50 09/08/17 07:45 91 50 09/08/17 07:45 50 09/08/17 07:00 98 Mechanical Ventilator 09/08/17 06:00 80 09/08/17 04:22 96 50 09/08/17 04:00 98.6 78 18 147/80 (102) 97 09/08/17 04:00 45 09/08/17 04:00 78 09/08/17 02:00 78 09/08/17 00:16 81 135/77 09/08/17 00:00 81 09/08/17 00:00 45 09/08/17 00:00 99.0 81 18 135/77 (96) 99 09/07/17 23:20 93 50 09/07/17 22:00 98 09/07/17 20:00 98.9 93 18 165/98 (120) 95 09/07/17 20:00 93 09/07/17 20:00 45 09/07/17 19:41 96 50 09/07/17 19:00 100 Mechanical Ventilator 09/07/17 18:30 85 155/91 (112) 93 09/07/17 18:00 99 09/07/17 18:00 99 169/98 (121) 95 Intake & Output 09/08/17 09/08/17 07:00 19:00 Intake Total 1870 ml 605 ml Output Total 600 ml Balance 1270 ml 605 ml Intake IV Total 900 ml 605 ml Tube Feeding 570 ml Other 400 ml Output Urine Total 600 ml # Bowel Movements 1 Physical Exam CONSTITUTIONAL/GENERAL: This is a chronically ill patient, intubated, sedated in no apparent distress TUBES/LINES/DRAINS: ETT, NGT, PIV, SCDs, Dockery catheter, bilateral upper extremity soft restraints SKIN: No jaundice, rashes, or lesions. Ecchymoses on upper extremities. No wounds seen anteriorly. Not diaphoretic. HEAD: Atraumatic. Normocephalic. EYES: Pupils 2 mm, questionable reaction.No scleral icterus. No injection or drainage. Fundi not examined. ENT: Unable to assess Hearing. Nose without bleeding or purulent drainage. Moist oral mucosa CARDIOVASCULAR: S1-S2 normal, NSR. No murmurs, no JVD. peripheral pulses symmetric. RESPIRATORY/CHEST: Symmetric, unlabored respirations. Diminished in the bases. No wheezes, rales. GASTROINTESTINAL: Abdomen soft, non-tender, nondistended. Bowel sounds present. TF infusing via NGT GENITOURINARY: Without palpable bladder distension. Dockery catheter in place. MUSCULOSKELETAL: Extremities without clubbing, cyanosis. Edema to all four extremities. No mottling or clubbing. NEUROLOGICAL: Intubated, sedated on mechanical ventilation. PSYCHIATRIC: Unable to assess at this time. . Diagnostic Tests Laboratory Laboratory Tests Test 09/06/17 05:05 09/06/17 14:38 09/06/17 18:33 09/07/17 00:33 White Blood Count 14.2 TH/MM3 (4.0-11.0) 12.1 TH/MM3 (4.0-11.0) Red Blood Count 3.74 MIL/MM3 (4.50-5.90) 3.43 MIL/MM3 (4.50-5.90) Hemoglobin 10.9 GM/DL (13.0-17.0) 10.2 GM/DL (13.0-17.0) Hematocrit 33.6 % (39.0-51.0) 30.9 % (39.0-51.0) Mean Corpuscular Volume 89.7 FL (80.0-100.0) 90.1 FL (80.0-100.0) Mean Corpuscular Hemoglobin 29.0 PG (27.0-34.0) 29.6 PG (27.0-34.0) Mean Corpuscular Hemoglobin Concent 32.3 % (32.0-36.0) 32.9 % (32.0-36.0) Red Cell Distribution Width 19.2 % (11.6-17.2) 19.8 % (11.6-17.2) Platelet Count 253 TH/MM3 (150-450) 208 TH/MM3 (150-450) Mean Platelet Volume 8.0 FL (7.0-11.0) 8.3 FL (7.0-11.0) Neutrophils (%) (Auto) 93.9 % (16.0-70.0) Lymphocytes (%) (Auto) 0.9 % (9.0-44.0) Monocytes (%) (Auto) 5.0 % (0.0-8.0) Eosinophils (%) (Auto) 0.0 % (0.0-4.0) Basophils (%) (Auto) 0.2 % (0.0-2.0) Neutrophils # (Auto) 13.3 TH/MM3 (1.8-7.7) Lymphocytes # (Auto) 0.1 TH/MM3 (1.0-4.8) Monocytes # (Auto) 0.7 TH/MM3 (0-0.9) Eosinophils # (Auto) 0.0 TH/MM3 (0-0.4) Basophils # (Auto) 0.0 TH/MM3 (0-0.2) CBC Comment DIFF FINAL Differential Comment Blood Urea Nitrogen 32 MG/DL (7-18) Creatinine 1.01 MG/DL (0.60-1.30) Random Glucose 193 MG/DL (74-106) Calcium Level 8.0 MG/DL (8.5-10.1) Phosphorus Level 2.6 MG/DL (2.5-4.9) Magnesium Level 2.4 MG/DL (1.5-2.5) Sodium Level 146 MEQ/L (136-145) Potassium Level 4.2 MEQ/L (3.5-5.1) Chloride Level 106 MEQ/L (98-107) Carbon Dioxide Level 31.9 MEQ/L (21.0-32.0) Anion Gap 8 MEQ/L (5-15) Estimat Glomerular Filtration Rate 75 ML/MIN (>89) Prothrombin Time 11.1 SEC (9.8-11.6) Prothromb Time International Ratio 1.1 RATIO Activated Partial Thromboplast Time 31.6 SEC (24.3-30.1) 57.6 SEC (24.3-30.1) 71.7 SEC (24.3-30.1) Total Creatine Kinase 25 U/L (39-308) Troponin I 0.82 NG/ML (0.02-0.05) Test 09/07/17 05:34 09/07/17 05:54 09/07/17 13:45 09/07/17 20:01 Activated Partial Thromboplast Time 82.8 SEC (24.3-30.1) 50.6 SEC (24.3-30.1) 47.1 SEC (24.3-30.1) White Blood Count 11.8 TH/MM3 (4.0-11.0) Red Blood Count 3.54 MIL/MM3 (4.50-5.90) Hemoglobin 10.0 GM/DL (13.0-17.0) Hematocrit 31.9 % (39.0-51.0) Mean Corpuscular Volume 90.0 FL (80.0-100.0) Mean Corpuscular Hemoglobin 28.3 PG (27.0-34.0) Mean Corpuscular Hemoglobin Concent 31.4 % (32.0-36.0) Red Cell Distribution Width 19.5 % (11.6-17.2) Platelet Count 220 TH/MM3 (150-450) Mean Platelet Volume 8.4 FL (7.0-11.0) Neutrophils (%) (Auto) 93.7 % (16.0-70.0) Lymphocytes (%) (Auto) 1.2 % (9.0-44.0) Monocytes (%) (Auto) 4.6 % (0.0-8.0) Eosinophils (%) (Auto) 0.0 % (0.0-4.0) Basophils (%) (Auto) 0.5 % (0.0-2.0) Neutrophils # (Auto) 11.0 TH/MM3 (1.8-7.7) Lymphocytes # (Auto) 0.1 TH/MM3 (1.0-4.8) Monocytes # (Auto) 0.5 TH/MM3 (0-0.9) Eosinophils # (Auto) 0.0 TH/MM3 (0-0.4) Basophils # (Auto) 0.1 TH/MM3 (0-0.2) CBC Comment DIFF FINAL Differential Comment Blood Urea Nitrogen 34 MG/DL (7-18) Creatinine 0.98 MG/DL (0.60-1.30) Random Glucose 154 MG/DL (74-106) Total Protein 5.7 GM/DL (6.4-8.2) Albumin 2.1 GM/DL (3.4-5.0) Calcium Level 8.0 MG/DL (8.5-10.1) Phosphorus Level 3.6 MG/DL (2.5-4.9) Magnesium Level 2.4 MG/DL (1.5-2.5) Alkaline Phosphatase 84 U/L (45-117) Aspartate Amino Transf (AST/SGOT) 30 U/L (15-37) Alanine Aminotransferase (ALT/SGPT) 55 U/L (12-78) Total Bilirubin 0.4 MG/DL (0.2-1.0) Sodium Level 149 MEQ/L (136-145) Potassium Level 4.6 MEQ/L (3.5-5.1) Chloride Level 108 MEQ/L (98-107) Carbon Dioxide Level 34.5 MEQ/L (21.0-32.0) Anion Gap 7 MEQ/L (5-15) Estimat Glomerular Filtration Rate 78 ML/MIN (>89) Troponin I 1.06 NG/ML (0.02-0.05) Test 09/08/17 06:08 White Blood Count 16.6 TH/MM3 (4.0-11.0) Red Blood Count 3.24 MIL/MM3 (4.50-5.90) Hemoglobin 9.4 GM/DL (13.0-17.0) Hematocrit 29.5 % (39.0-51.0) Mean Corpuscular Volume 91.2 FL (80.0-100.0) Mean Corpuscular Hemoglobin 29.0 PG (27.0-34.0) Mean Corpuscular Hemoglobin Concent 31.7 % (32.0-36.0) Red Cell Distribution Width 19.5 % (11.6-17.2) Platelet Count 270 TH/MM3 (150-450) Mean Platelet Volume 8.2 FL (7.0-11.0) Neutrophils (%) (Auto) 92.0 % (16.0-70.0) Lymphocytes (%) (Auto) 1.4 % (9.0-44.0) Monocytes (%) (Auto) 6.4 % (0.0-8.0) Eosinophils (%) (Auto) 0.0 % (0.0-4.0) Basophils (%) (Auto) 0.2 % (0.0-2.0) Neutrophils # (Auto) 15.3 TH/MM3 (1.8-7.7) Lymphocytes # (Auto) 0.2 TH/MM3 (1.0-4.8) Monocytes # (Auto) 1.1 TH/MM3 (0-0.9) Eosinophils # (Auto) 0.0 TH/MM3 (0-0.4) Basophils # (Auto) 0.0 TH/MM3 (0-0.2) CBC Comment AUTO DIFF Differential Total Cells Counted 100 Neutrophils % (Manual) 87 % (16-70) Band Neutrophils % 2 % (0-6) Lymphocytes % 1 % (9-44) Monocytes % 2 % (0-8) Neutrophils # (Manual) 16.1 TH/MM3 (1.8-7.7) Metamyelocytes 3 % (0-1) Myelocytes 4 % (0-0) Promyelocytes 1 % (0-0) Differential Comment FINAL DIFF MANUAL Platelet Estimate NORMAL (NORMAL) Platelet Morphology Comment NORMAL (NORMAL) Basophilic Stippling FAINT (NORMAL) Ovalocytes 1+ (NORMAL) Activated Partial Thromboplast Time 46.8 SEC (24.3-30.1) Blood Urea Nitrogen 39 MG/DL (7-18) Creatinine 1.00 MG/DL (0.60-1.30) Random Glucose 173 MG/DL (74-106) Total Protein 5.7 GM/DL (6.4-8.2) Albumin 2.3 GM/DL (3.4-5.0) Calcium Level 7.9 MG/DL (8.5-10.1) Phosphorus Level 4.5 MG/DL (2.5-4.9) Magnesium Level 2.3 MG/DL (1.5-2.5) Alkaline Phosphatase 78 U/L (45-117) Aspartate Amino Transf (AST/SGOT) 28 U/L (15-37) Alanine Aminotransferase (ALT/SGPT) 58 U/L (12-78) Total Bilirubin 0.4 MG/DL (0.2-1.0) Sodium Level 146 MEQ/L (136-145) Potassium Level 4.4 MEQ/L (3.5-5.1) Chloride Level 107 MEQ/L (98-107) Carbon Dioxide Level 30.8 MEQ/L (21.0-32.0) Anion Gap 8 MEQ/L (5-15) Estimat Glomerular Filtration Rate 76 ML/MIN (>89) Troponin I 0.83 NG/ML (0.02-0.05) Triglycerides Level 178 MG/DL (42-150) Cholesterol Level 174 MG/DL (120-200) LDL Cholesterol 102 MG/DL (0-99) HDL Cholesterol 36.8 MG/DL (40.0-60.0) Cholesterol/HDL Ratio 4.72 RATIO Result Diagram: 09/08/1760709/08/17607 Imaging Last 48 hours Impressions Chest X-Ray 09/08/17599 Signed Impressions: Service Date/Time: Friday, September 08, 2017 04:07 - CONCLUSION: Stable appearance to the chest. Persistent consolidation left lower lobe. Luis Castro MD Chest X-Ray 09/07/17599 Signed Impressions: Service Date/Time: Thursday, September 07, 2017 04:21 - CONCLUSION: Increasing consolidation left lower lobe a combination of airspace disease and pleural effusion. Lius Castro MD Procedures 08/29/17-intubation 08/31/17-self extubation 08/31/17-reintubated . Assessment and Plan Disease Oriented Problem List: (1) Acute respiratory failure with hypoxia and hypercarbia (2) Lung cancer (3) Atrial fibrillation with RVR (4) Lung consolidation (5) COPD (chronic obstructive pulmonary disease) Symptom Scale: (1) Shortness of breath Comment: Hx of lung cancer. CT angiography revealed multilobar consolidation and no evidence for pulmonary embolism, extensive coronary calcifications. . (2) Pain Comment: Risk for pain-from procedure (intubation), bedbound status. . (3) Debility 0-10 Scale: Unable to quantify Comment: Progressive . Pertinent Non-Medical Issues Psychosocial:Patient was born and raised in [place]. He left [place] at the age of 20. Patient moved to [place] in 1975. Patient has a 2 years college degree in [employer] technology. 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 Patient was and twice. He never had children. Spiritual:N yazidism affiliation Legal:Patient has a [facility] form signed and completed a Community DNR Ethical issues impacting care:None identified at this time . Important Contacts Alternate [facility]- Cousin- Dahiana Mayorga [phone] Friend-Nemo [phone] [facility]- (Long time friend-15 yrs) Kay Rizvi [phone]- . Prognosis Mr Adams is a 61 years old male with a past medical history significant of lung cancer s/p radiation, COPD, hypertension, coronary artery disease and tobacco use. Patient presented to the ER via EMS on 08/29/17 complaining of shortness of breath that had started the night before, generalized malaise and weakness. Clinical course complicated with atrial fibrillation with RVR, and acute hypoxic and hypercapnic respiratory failure. Given ongoing comorbidities , patient remains at high risk for further complications, deterioration and decline. . Code Status: Full Code Plan PLAN: Legal decision maker: Patient is currently intubated, sedated on mechanical ventilation and is not able to participate in decision-making. Patient`s cousin Dahiana Mayorga whom he has designated as his alternate healthcare surrogate will make medical decisions for patient. Goals: Remain Aggressive CODE STATUS: Full code Telephone conversation with patient`s cousin Dahiana ([facility]). Updated on patient`s medical status. Patient`s cousin is hopeful that patient can get medically extubated and participate in making his own medical decision regarding code status. SYMPTOMS: * Shortness of breath: Patient has history of lung cancer, COPD and tobacco use. Patient presented with shortness of breath. Intubated 08/29, self extubated 08/31, reintubated 08/31 secondary to respiratory failure. Worsening chest x-ray today. Solu-Medrol and duo nebs prn.Failing CPAP trials. Back on ventilator full support. No recommendations at this time. * Pain: Patient is at risk for pain, required intubation in the ER. Currently bedbound. Fentanyl infusion at 200mcg/hr. No signs of pain noted. No recommendations at this time. * Debility: Progressive: Hx of lung cancer s/p radiation. Multiple hospitalizations. Patient may benefit from PT consultation if goals remain aggressive. . Palliative care will continue to follow the patient during hospital course as condition evolves, to assist patient/decision-maker with understanding of their medical conditions, weighing benefits/burdens of treatment options, for clarification of goals of treatment. Additionally will assist with any symptoms of palliative concern Attestation To help prompt me to consider important information that might be impacting today's encounter and assessment, information from prior notes written by myself or my colleagues may have been "brought forward" into today's note. My signature on this note, however, is an attestation that I personally performed the exam, history, and/or decision-making noted today, and, unless otherwise indicated, the interactions with patient, family, and staff as well as the review of records all occurred today. I also attest that the listed assessment and stated plan reflect my best clinical judgment today based on the combination of historical information, prior notes, and today's exam/ interactions. When time spent is documented, it refers only to time spent today by the signer, or if indicated, combined time spent today by collaborating physician/nurse practitioner. Randa Tenorio September 08, 2017 17:44
--- NOTE | 2017-09-08 20:58 | ECHRPT ---
Indication: EF assessment of CHF CONCLUSIONS Limited echo done for EF assessment The left ventricular systolic function is moderately reduced with an estimated ejection fraction in the range of 40-45%. Wall thickness is measured at the upper limits of normal. Large left pleural effusion noted. BP: 163 / 95 HR: 78 Rhythm: Sinus MEASUREMENTS (Male / Female) Normal Values Technical Quality:Good 2D ECHO LV Diastolic Diameter PLAX 4.5 cm 4.2 - 5.9 / 3.9 - 5.3 cm LV Systolic Diameter PLAX 3.6 cm IVS Diastolic Thickness 1.2 cm 0.6 - 1.0 / 0.6 - 0.9 cm LVPW Diastolic Thickness 1.2 cm 0.6 - 1.0 / 0.6 - 0.9 cm LV Relative Wall Thickness 0.5 LV Ejection Fraction MOD BP 40.3 % >= 55 % LV Cardiac Index MOD BP 1527.2 cm/minm LV Ejection Fraction MOD 4C 39.4 % LV Cardiac Index MOD 4C 1379.4 cm/minm LV Ejection Fraction 4C AL 42.0 % LV Cardiac Index 4C AL 1559.7 cm/minm LV Ejection Fraction MOD 2C 40.0 % LV Cardiac Index MOD 2C 1576.5 cm/minm LV Ejection Fraction 2C AL 42.8 % LV Cardiac Index 2C AL 1778.5 cm/minm FINDINGS LEFT VENTRICLE The left ventricular systolic function is moderately reduced with an estimated ejection fraction in the range of 40-45%. Wall thickness is measured at the upper limits of normal. OTHER FINDINGS Large left pleural effusion noted Martin Lopez DO (Electronically Signed) Final Date:08 Sep 2017 20:58
[2017-09-08] MEDS: AMIODARONE 200 MG TAB NG SCH (21:26)
[2017-09-08] MEDS: HEPARIN-D5W 25,000 U/250 ML 250 ML IV PRN (21:31)
[2017-09-09] VITALS (18 sets, daily range): BP systolic 131–166; BP diastolic 74–92; PULSE 69–86; RESP 16; TEMP 97.9–98.7; O2SAT 94–98
[2017-09-09] MEDS: PIPERACIL-TAZO 4.5 GM PREMIX 100 ML IV SCH ×4 (00:28→20:46)
[2017-09-09] MEDS: methylPREDNISolone SOD SUCC 40 MG/1 ML VIAL IV PUSH SCH (00:28)
[2017-09-09] MEDS: DILTIAZEM HCL 90 MG TAB PO SCH ×4 (03:00→20:45)
[2017-09-09] MEDS: RESP: ALBUTEROL 2.5 MG/IPRATROPIUM 0.5 MG NEB (SCH) NEB ×6 (03:57→23:25)
[2017-09-09] MEDS: CHLORHEXIDINE GLUCONATE 2 % 1 PACK (2 CLOTHS) TOP SCH ×2 (04:00→19:07)
[2017-09-09] MEDS: hydrALAZINE HCL 25 MG TAB PO SCH ×3 (05:04→20:45)
[2017-09-09] MEDS: INSULIN NovoLIN REGULAR SUPPLEMENTAL SCALE SQ SCH ×5 (05:04→23:14)
[2017-09-09] MEDS: ARTIFICIAL TEARS OPTH SOLN 15 ML BTL EACH EYE SCH ×3 (05:04→20:45)
[2017-09-09] MEDS: FREE WATER NG SCH ×5 (05:04→23:14)
[2017-09-09] MEDS: ISOSORBIDE DINITRATE 10 MG TAB PO SCH ×3 (05:04→20:45)
[2017-09-09] MEDS: PROPOFOL 1000 MG/100 ML INJ 100 ML IV PRN ×3 (05:08→20:44)
[2017-09-09] MEDS: fentaNYL DRIP 250 ML IV PRN ×2 (05:10→17:24)
[2017-09-09] MEDS: CHLORHEXIDINE 0.12% (ORAL KIT) 15 ML CUP MT SCH ×2 (08:00→19:07)
[2017-09-09] MEDS: PRAVASTATIN SOD 10 MG TAB PO SCH (08:52)
[2017-09-09] MEDS: LANSOPRAZOLE SOLUTAB 30 MG TAB NG SCH (08:52)
[2017-09-09] MEDS: METOPROLOL TARTRATE 50 MG TAB PO SCH ×2 (08:52→20:46)
[2017-09-09] MEDS: CLOPIDOGREL 75 MG TAB PO SCH (08:53)
[2017-09-09] MEDS: ASPIRIN 81 MG CHEW TAB CHEW SCH (08:53)
[2017-09-09] MEDS: AMIODARONE 200 MG TAB NG SCH ×2 (08:53→20:45)
[2017-09-09] MEDS: DOCUSATE SODIUM 50 MG/SENNA 8.6 MG TAB PO SCH ×2 (08:58→20:44)
[2017-09-09] MEDS: LACTULOSE SYRUP 20 GM/30 ML CUP PO SCH (09:00)
[2017-09-09 09:30] LABS: HEMATOCRIT 25.2 % (39.0-51.0); HEMOGLOBIN 8.2 GM/DL (13.0-17.0); MEAN CELL VOLUME 90.4 FL (80.0-100.0); MEAN CORPUSCULAR HEMOGLOBIN 29.3 PG (27.0-34.0); MEAN CORPUSCULAR HGB CONC 32.5 % (32.0-36.0); MEAN PLATELET VOLUME 8.4 FL (7.0-11.0); PLATELET COUNT 184 TH/MM3 (150-450); RED BLOOD COUNT 2.79 MIL/MM3 (4.50-5.90); RED CELL DISTRIBUTION WIDTH 19.6 % (11.6-17.2)
[2017-09-09] MEDS ORDERED: FUROSEMIDE 40 MG/4 ML VIAL IV PUSH ONE ×2 (10:00→20:00)
--- NOTE | 2017-09-09 10:59 | PD.CARD.PN ---
Subjective Subjective Remarks Intubated Objective Medications Current Medications Medications (Trade) Dose Ordered Sig/[place] Route Start Time Stop Time Status Last Admin (NS Flush) 2 ml UNSCH PRN IVF 08/29/17 18:00 09/07/17 08:49 Potassium Chloride 100 ml @ 50 mls/hr Q2H PRN IV 08/29/17 18:45 Potassium Chloride 100 ml @ 50 mls/hr Q2H PRN IV 08/29/17 18:45 09/03/17 23:09 (K-Lyte Cl Eff) 50 meq UNSCH PRN PO 08/29/17 18:45 Potassium Chloride 100 ml @ 25 mls/hr UNSCH PRN IV 08/29/17 18:45 Potassium Chloride 100 ml @ 50 mls/hr Q2H PRN IV 08/29/17 18:45 Magnesium Sulfate 4 gm/Sodium Chloride 100 ml @ 50 mls/hr UNSCH PRN IV 08/29/17 18:45 (Mag-Ox) 800 mg UNSCH PRN PO 08/29/17 18:45 Magnesium Sulfate 2 gm/Sodium Chloride 100 ml @ 50 mls/hr UNSCH PRN IV 08/29/17 18:45 (K-Phos) 2,000 mg Q4H PRN PO 08/29/17 18:45 Sodium Phosphate 30 mmol/Sodium Chloride 250 ml @ 42 mls/hr UNSCH PRN IV 08/29/17 18:45 (K-Phos) 2,000 mg UNSCH PRN PO/TUBE 08/29/17 18:45 Potassium Phosphate 30 mmol/ Sodium Chloride 260 ml @ 42 mls/hr UNSCH PRN IV 08/29/17 18:45 (D50w (Vial) Inj) 25 ml UNSCH PRN IV PUSH 08/29/17 18:45 (NovoLIN R SUPPLEMENTAL SCALE) 1 Q6HR SQ 08/30/17 00:00 09/09/17 05:04 Piperacillin Sod/ Tazobactam Sod 100 ml @ 200 mls/hr Q6H IV 08/29/17 20:00 09/12/17 19:59 09/09/17 08:52 (Zofran Inj) 4 mg Q6H PRN IV PUSH 08/29/17 18:45 08/31/17 19:59 ([facility] [facility] 1 Q361D XX 08/29/17 18:45 08/29/17 18:45 (Chlorhexidine 2% Cloth) Taper DAILY@04 TOP 08/30/17 04:00 08/26/18 03:59 09/08/17 03:38 (Chlorhexidine 2% Cloth) 3 pack UNSCH PRN TOP 08/29/17 18:45 (Nata-Colace) 1 tab BID PO 08/29/17 21:00 09/09/17 08:58 (Milk Of Magnesia Liq) 30 ml Q12H PRN PO 08/29/17 18:45 (NS Flush) 2 ml UNSCH PRN IVF 08/29/17 19:30 09/07/17 08:49 (Peridex 0.12% Liq) 15 ml BID@08,20 MT 09/01/17 08:00 09/09/17 08:00 Propofol 100 ml @ 1.65 mls/hr TITRATE PRN IV 08/31/17 22:30 09/09/17 05:08 (Pravachol) 10 mg DAILY PO 09/01/17 09:00 09/09/17 08:52 (Lopressor) 50 mg Q12HR PO 09/01/17 09:00 09/09/17 08:52 (Aspirin Chew) 81 mg DAILY CHEW 09/01/17 09:00 09/09/17 08:53 (Senokot) 17.2 mg Q12H PRN PO 09/02/17 08:15 (Dulcolax Supp) 10 mg DAILY PRN RECTAL 09/02/17 08:15 (Lactulose Liq) 30 ml DAILY PRN PO 09/02/17 08:15 (Lactulose Liq) 30 ml DAILY PO 09/02/17 09:00 09/08/17 08:30 Fentanyl Citrate 250 ml @ 5 mls/hr TITRATE PRN IV 09/02/17 17:30 09/09/17 05:10 Levofloxacin/ Dextrose 50 ml @ 50 mls/hr Q24H IV 09/04/17 13:00 09/08/17 12:48 (Trandate Inj) 10 mg Q4H PRN IV PUSH 09/03/17 22:00 09/06/17 11:12 (Apresoline Inj) 20 mg Q4H PRN IV PUSH 09/03/17 22:00 09/07/17 15:08 (SoluMEDROL INJ) 40 mg Q12H IV PUSH 09/06/17 02:00 09/09/17 00:28 (Cardizem) 90 mg Q6H PO 09/05/17 15:00 09/09/17 08:52 Amiodarone HCl 450 mg/Sodium Chloride 250 ml @ 33.33 mls/ hr Q7H31M PRN IV 09/06/17 12:33 09/08/17 00:16 (Duoneb Neb) 1 ampule Q4HR NEB NEB 09/06/17 16:00 09/09/17 08:03 (Albuterol Neb) 2.5 mg Q2HR NEB PRN NEB 09/06/17 12:30 (Tears Naturale Opth Soln) 1 drop Q8HR EACH EYE 09/06/17 14:00 09/09/17 05:04 (Prevacid Odt) 30 mg DAILY NG 09/07/17 09:00 09/09/17 08:52 Heparin Sodium/ Dextrose 250 ml @ 10 mls/hr TITRATE PRN IV 09/06/17 12:45 09/08/17 21:31 (Plavix) 75 mg DAILY PO 09/07/17 09:00 09/09/17 08:53 (Free Water) VOLUME: 200 ML Q6HR NG 09/07/17 18:00 09/09/17 05:04 (Trandate Inj) 10 mg Q1HR PRN IV PUSH 09/07/17 16:00 09/07/17 18:09 (Apresoline Inj) 10 mg Q1HR PRN IV PUSH 09/07/17 16:00 (Nitroglycerin 2% Oint) 2 inch Q6HR PRN TOPICAL 09/07/17 16:00 (Isordil) 10 mg Q8HR PO 09/07/17 22:00 09/09/17 05:04 (Apresoline) 25 mg Q8HR PO 09/07/17 22:00 09/09/17 05:04 (Cordarone) 400 mg Q12HR NG 09/08/17 21:00 09/09/17 08:53 Vital Signs / I&O Vital Signs Date Time Temp Pulse Resp B/P (MAP) Pulse Ox O2 Delivery O2 Flow Rate FiO2 09/09/17 10:00 73 09/09/17 08:04 94 45 09/09/17 08:00 76 09/09/17 08:00 45 09/09/17 08:00 98.5 76 153/83 (106) 96 09/09/17 07:00 94 Mechanical Ventilator 09/09/17 06:00 71 09/09/17 04:00 98.7 78 16 161/89 (113) 98 09/09/17 04:00 45 09/09/17 04:00 78 09/09/17 03:58 98 45 09/09/17 02:00 72 09/09/17 00:00 45 09/09/17 00:00 77 09/09/17 00:00 98.7 77 16 156/84 (108) 97 09/08/17 23:53 97 45 09/08/17 22:00 77 09/08/17 20:05 95 45 09/08/17 20:00 98.9 77 16 142/79 (100) 95 09/08/17 20:00 45 09/08/17 20:00 77 09/08/17 19:00 100 Mechanical Ventilator 09/08/17 18:00 81 09/08/17 16:00 98.8 77 132/71 (91) 94 09/08/17 16:00 77 09/08/17 16:00 45 09/08/17 16:00 77 09/08/17 15:32 94 45 09/08/17 15:00 86 158/90 (112) 92 09/08/17 14:17 95 45 09/08/17 14:17 50 09/08/17 14:00 83 09/08/17 14:00 83 154/84 (107) 91 09/08/17 13:00 83 155/87 (109) 95 09/08/17 12:00 98.3 84 156/89 (111) 96 09/08/17 12:00 45 09/08/17 12:00 84 09/08/17 11:41 97 45 09/08/17 11:00 50 09/08/17 11:00 73 144/76 (98) 96 I/O 09/08/17 09/08/17 09/08/17 09/09/17 09/09/17 09/09/17 07:00 15:00 23:00 07:00 15:00 23:00 Intake Total 1770 ml 250 ml 2514 ml 1429 ml Output Total 600 ml 1250 ml 1100 ml Balance 1170 ml 250 ml 1264 ml 329 ml Intake IV Total 800 ml 250 ml 1253 ml 450 ml Tube Feeding 570 ml 761 ml 579 ml Other 400 ml 500 ml 400 ml Output Urine Total 600 ml 1250 ml 1100 ml # Bowel Movements 1 1 1 Physical Exam Sedated CVP elevated? Chest: diminished at bases CV S1S2 RRR Echo LVEF 40-45% Moderate LE edeam Laboratory Laboratory Tests Test 09/09/17 09:12 White Blood Count 13.0 TH/MM3 Red Blood Count 2.79 MIL/MM3 Hemoglobin 8.2 GM/DL Hematocrit 25.2 % Mean Corpuscular Volume 90.4 FL Mean Corpuscular Hemoglobin 29.3 PG Mean Corpuscular Hemoglobin Concent 32.5 % Red Cell Distribution Width 19.6 % Platelet Count 184 TH/MM3 Mean Platelet Volume 8.4 FL Activated Partial Thromboplast Time 52.7 SEC Imaging Last 48 hours Impressions Chest X-Ray 09/08/17 0600 Signed Impressions: Service Date/Time: Friday, September 08, 2017 04:07 - CONCLUSION: Stable appearance to the chest. Persistent consolidation left lower lobe. Luis Castro MD Assessment and Plan Problem List: (1) Fluid overload ICD Codes: E87.70 - Fluid overload, unspecified (2) Non-STEMI (non-ST elevated myocardial infarction) ICD Codes: I21.4 - Non-ST elevation (NSTEMI) myocardial infarction (3) Paroxysmal A-fib ICD Codes: I48.0 - Paroxysmal atrial fibrillation Status: Chronic Assessment and Plan Cont. amiodarone. Agree with diuresis. Bernard Nava MD September 09, 2017 10:59
--- NOTE | 2017-09-09 11:12 | HHI.CCPN ---
Subjective Remarks/Hospital Course 08/29: This is a 61-year-old male with a history of lung cancer undergoing current chemotherapy and radiation who was recently admitted on 07/19 for aspiration pneumonia. During that admission he did have episodes of paroxysmal atrial fibrillation and had an echo from 04/2017 showing an EF of 50-55%. He represents today to the emergency department with acute shortness of breath since last night. Per the ER documentation, he denies any coughing, fever, chills, or other recent symptoms or changes other than the new dyspnea. In the emergency department he was found to be in A. fib with RVR. This initially converted to sinus rhythm 1 after diltiazem 20 mg IV bolus, but then very quickly went back into atrial for ablation with rapid ventricular response. 2 doses of adenosine were not able to convert it. The patient was loaded with amiodarone and infusion was started. After this, the patient become acutely hypoxemic requiring emergent intubation. Please refer to the emergency room physician documentation for additional details regarding the decompensation. When I came to evaluate patient, the patient was recently intubated, sedated. No additional information is available from the patient due to his clinical condition. Review of systems is unobtainable. Critical care medicine is consulted to evaluate manage his acute hypoxic respiratory failure along with his acute supraventricular tachycardia. 08/30: Patient remains intubated and sedated. FiO2 down to 0.5. Patient continues to be on amiodarone infusion and heparin drip. Sedation achieved with propofol and fentanyl. Patient remains hypothermic requiring Gracia hugger, urine output 350 mL's documented since admission. 08/31: No events over the night. Patient remains intubated and sedated. Hemoglobin more stable posttransfusion. Hypothermia resolved, T-max of 100.3. Urine output remains low, 635 mL's over the last 24 hours. Oxygenation is improved. No family present at bedside. Patient remains in sinus rhythm, on amiodarone infusion. No report of melena, hematochezia or coffee-ground aspirate from NG tube. Morning chest x-ray reviewed, worsening infiltrates over the right thorax, unchanged consolidation over the left. 09/01: Afebrile. Patient was extubated yesterday afternoon and emergently intubated 1030 last night secondary to hypoxemic respiratory failure. This x- ray pending this a.m.. The patient also was noted to have severe metabolic acidosis and sodium bicarbonate infusion was initiated. Patient noted to have Pseudomonas, and placed on Zosyn. Patient continues to have leukocytosis with worsening pneumonia ID has been consulted appreciate recommendations. Patient previously DNR palliative has been consulted up on hypoxemic respiratory failure patient was noted to request intubation at that time. Palliative care consult pending. Patient continues on amiodarone infusion now in sinus rhythm. Amiodarone infusion discontinued the patient continued on metoprolol and Cardizem home medications. Hemoglobin appears stable status post 2 units transfusion 48 hours ago. Will do serial H&H's aspirin reinitiated will hold Plavix for now, and continue to follow. Subcu heparin initiated. 09/02: Afebrile. Hemoglobin stable for the last 24 hours. Plan to restart tube feeds this a.m.. Metabolic acidosis resolved, patient's sodium bicarbonate discontinued. Patient requiring increasing FiO2 requirements during the night , now at 100% ABG pending. This am chest x-ray worsening. 09/03: Late entry note patient seen at 8:15 AM .afebrile. Chest x-ray continues to worsen. FiO2 requirement slightly decreased we will attempt CPAP trials today. 09/04: Afebrile. patient awake and following commands this a.m. Currently on CPAP trials. FiO2 weaned to 45% 09/05: Afebrile. Patient tolerating CPAP trials. She noted to have elevated blood glucose level secondary methylprednisolone. Chest x-ray now improving methylprednisolone taper initiated. Patient noted to still have episodes of hypertension Cardizem increased to 90 mg every 6 hours. 09/06: Patient currently in a flutter. Received adenosine 12 mg 1 which feels a flutter. Echocardiogram CPK and troponin ordered. TSH normal during this hospitalization. Potassium magnesium both normalized. Arousable and follows commands. Subjective 09/07: Patient is currently on PSV trial 20/8 ~35%. Patient oscillating on CODE STATUS. Tolerating tube feeds. Remains in normal sinus rhythm on amiodarone drip. 09/08: No events over the night. CPAP trial was attempted this morning patient went into A. fib with RVR after 15 minutes. Patient was switched back to full support, and converted to sinus rhythm. He continues to be on amiodarone infusion and heparin drip. He is lethargic but easily arousable able to follow some commands. FiO2 at 0.5 and PEEP at 8. T-max of 99. 5/9: No events over the night. T-max of 98.9. Patient remains intubated and sedated, on propofol and fentanyl. CPAP trial attempted this morning again and patient went into A. fib with RVR and hypoxia, therefore he was placed back on PRVC. No family present at bedside. Urine output of 2350 mL over the last 24 hours. He is +22 L since admission charting is correct. Objective Vital Signs Date Time Temp Pulse Resp B/P (MAP) Pulse Ox O2 Delivery O2 Flow Rate FiO2 09/09/17 10:00 73 09/09/17 08:04 94 45 09/09/17 08:00 98.5 153/83 (106) 09/09/17 07:00 Mechanical Ventilator 09/09/17 04:00 16 Intake and Output 09/09/17 09/09/17 09/10/17 08:00 16:00 00:00 Intake Total 1429 ml Output Total 1100 ml Balance 329 ml Result Diagram: 09/09/17 0912 09/08/17 0608 Imaging Last 24 hours Impressions Chest X-Ray 09/08/17 0600 Signed Impressions: Service Date/Time: Friday, September 08, 2017 04:07 - CONCLUSION: Stable appearance to the chest. Persistent consolidation left lower lobe. Luis Castro MD Last Impressions Chest X-Ray 09/07/17 0600 Signed Impressions: Service Date/Time: Thursday, September 07, 2017 04:21 - CONCLUSION: Increasing consolidation left lower lobe a combination of airspace disease and pleural effusion. Luis Castro MD Abdomen X-Ray 08/31/17 0000 Signed Impressions: Service Date/Time: Thursday, August 31, 2017 20:34 - CONCLUSION: 1. Nasogastric tube tip in distal stomach. David Jay MD CT Angiography 08/29/17 6019 Signed Impressions: Service Date/Time: Tuesday, August 29, 2017 19:36 - CONCLUSION: 1. Multilobar consolidation. 2. No evidence for pulmonary embolism. 3. Extensive coronary calcifications Pk Bae MD Objective Remarks General - elderly gentleman, intubated, sedated, arousable, chronically ill- appearing HEENT - pupils are equal, reactive, sclerae are anicteric, neck is supple, no rigidity, no JVD, orally intubated CV - regular S1 and S2, no murmurs appreciated Chest - diffuse coarse breath sounds b/l, good air entry, no wheezes Abdomen - soft, non-tender, non-distended, BS present Skin - no rashes, no cyanosis Extremities - warm and well perfused, 2+ edema over both upper and lower extremities, + peripheral pulses, Neuro - pupils are equal and reactive, opens eyes to voice stimuli, follows some commands, moves all extremities but he remains very weak A/P Problem List: (1) OBED (acute kidney injury) ICD Code: N17.9 - Acute kidney failure, unspecified (2) Severe protein-calorie malnutrition ICD Code: E43 - Unspecified severe protein-calorie malnutrition Status: Chronic (3) Shortness of breath ICD Code: R06.02 - Shortness of breath Status: Acute (4) Tobacco abuse ICD Code: Z72.0 - Tobacco use Status: Chronic (5) Paroxysmal A-fib ICD Code: I48.0 - Paroxysmal atrial fibrillation Status: Chronic (6) Atrial fibrillation with RVR ICD Code: I48.91 - Unspecified atrial fibrillation Status: Resolved (7) PNA (pneumonia) ICD Code: J18.9 - Pneumonia, unspecified organism (8) COPD (chronic obstructive pulmonary disease) ICD Code: J44.9 - Chronic obstructive pulmonary disease, unspecified (9) Lung cancer ICD Code: C34.90 - Malignant neoplasm of unspecified part of unspecified bronchus or lung (10) Debility ICD Code: R53.81 - Other malaise Status: Chronic (11) Pain ICD Code: R52 - Pain, unspecified Status: Chronic (12) Lung consolidation ICD Code: J18.1 - Lobar pneumonia, unspecified organism Status: Acute (13) Acute respiratory failure with hypoxia and hypercarbia ICD Code: J96.01 - Acute respiratory failure with hypoxia; J96.02 - Acute respiratory failure with hypercapnia Assessment and Plan 1. Acute hypoxic and hypercapnic respiratory failure -slowly improving, 0.45 FiO2 and PEEP of 8 2. Pseudomonas pneumonia 3. Acute COPD exacerbation -resolved 4. Lung cancer currently undergoing radiation therapy and chemotherapy 5. Atrial fibrillation with rapid ventricular response -goes in and out of A. fib, currently on amiodarone 6. Elevated Troponin - trending down 7. Acute blood loss anemia -resolved 8. OBED -resolved 9. Volume overload -patient more than 22 L positive since admission if charting is correct 1. Continue PRVC, patient is synchronized with the vent, no auto PEEP, PIP is 27 2. Vent bundle and bronchodilators with ipratropium and levalbuterol 3. Taper steroids 4. Start Lasix 40 IV twice daily 5. Minimize sedation 6. Continue amiodarone and heparin drip, followed by cardiology 7. Monitor electrolytes with diuresis 8. 09/01 metoprolol tartrate 50 mg twice daily. Cardizem increased to 90 mg 4 times daily. Home medication is 240 mg daily 9. Holding lisinopril 5 mg daily medication. Add isosorbide mononitrate 10 mg 3 times daily and hydralazine 25 mg 3 times daily 10. On statin, aspirin and clopidogrel 11. On antibiotics, followed by ID 12. Continue tube feeds, currently at goal 13. GI prophylaxis 14. DVT prophylaxis -on heparin drip No family present at bedside. Level 2 follow-up Problem Qualifiers (1) PNA (pneumonia): Qualified Codes: J18.1 - Lobar pneumonia, unspecified organism Sunny Herrera MD September 09, 2017 11:12
[2017-09-09 12:13] LABS: ALBUMIN 2.1 GM/DL (3.4-5.0); ALT (GPT) 41 U/L (12-78); AST (GOT) 19 U/L (15-37); BICARBONATE 30.8 MEQ/L (21.0-32.0); BLOOD UREA NITROGEN 44 MG/DL (7-18); CALCIUM 7.9 MG/DL (8.5-10.1); CHLORIDE 108 MEQ/L (98-107); CREATININE 1.01 MG/DL (0.60-1.30); GLOMERULAR FILTRATION RATE 75 ML/MIN (>89); GLUCOSE,RANDOM 159 MG/DL (74-106); MAGNESIUM 2.2 MG/DL (1.5-2.5); PHOSPHORUS 4.1 MG/DL (2.5-4.9); SODIUM (NA) 146 MEQ/L (136-145)
--- NOTE | 2017-09-09 12:14 | HHI.HCPN ---
Reason for visit a. To assist with evaluation and management of symptoms including: Shortness of breath, pain, debility b. To assist medical decision maker(s) with: better understanding of current medical conditions; weighing benefits/burdens of medical treatment options; making medical treatment decisions. Subjective/Interval History Follow up medically necessary for symptom management and further clarification of goals of care. Patient remains intubated, sedated on mechanical ventilation. Patient is positive 22L today and CPAP trial on hold today. Patient remains on full ventilatory support, with FiO2 at 60% . Patient is on fentanyl infusion at 200 mcg/hr, propofol infusion at 40 mcg/kg/min and heparin infusion. No signs of pain noted. Vital signs stable. Patient being diuresed today and hopefully resume CPAP trials tomorrow. Cardiology following. 2D echocardiogram on 09/08/17 revealed ejection fraction of 40-45% and large left pleural effusion was noted as well. Laboratory workup today revealed WBC 13.0, hemoglobin 8.2, hematocrit 25.2, platelet count 184. No imaging today. Case discussed with bedside MARION Asher. . Family/friend interactions No family at bedside . Advance Directives Health Care Surrogate: Copy in medical record Advance Directive Specifics Date completed: [facility] -April 08, 2017 . Health Care Surrogate(s): HCS- (Long time friend-15 yrs) Kay Rizvi [phone]- (July 2017) Alternate [facility]- Cousin- Dahiana Mayorga [phone] (will serve as HCS) . Objective Vital Signs Date Time Temp Pulse Resp B/P (MAP) Pulse Ox O2 Delivery O2 Flow Rate FiO2 09/09/17 11:16 96 45 09/09/17 10:00 73 09/09/17 08:04 94 45 09/09/17 08:00 76 09/09/17 08:00 45 09/09/17 08:00 98.5 76 153/83 (106) 96 09/09/17 07:00 94 Mechanical Ventilator 09/09/17 06:00 71 09/09/17 04:00 98.7 78 16 161/89 (113) 98 09/09/17 04:00 45 09/09/17 04:00 78 09/09/17 03:58 98 45 09/09/17 02:00 72 09/09/17 00:00 45 09/09/17 00:00 77 09/09/17 00:00 98.7 77 16 156/84 (108) 97 09/08/17 23:53 97 45 09/08/17 22:00 77 09/08/17 20:05 95 45 09/08/17 20:00 98.9 77 16 142/79 (100) 95 09/08/17 20:00 45 09/08/17 20:00 77 09/08/17 19:00 100 Mechanical Ventilator 09/08/17 18:00 81 09/08/17 16:00 98.8 77 132/71 (91) 94 09/08/17 16:00 77 09/08/17 16:00 45 09/08/17 16:00 77 09/08/17 15:32 94 45 09/08/17 15:00 86 158/90 (112) 92 09/08/17 14:17 95 45 09/08/17 14:17 50 09/08/17 14:00 83 09/08/17 14:00 83 154/84 (107) 91 09/08/17 13:00 83 155/87 (109) 95 Intake & Output 09/09/17 09/09/17 06:59 18:59 Intake Total 1879 ml Output Total 1100 ml Balance 779 ml Intake IV Total 900 ml Tube Feeding 579 ml Other 400 ml Output Urine Total 1100 ml # Bowel Movements 1 Physical Exam CONSTITUTIONAL/GENERAL: This is a chronically ill patient, intubated, sedated in no apparent distress TUBES/LINES/DRAINS: ETT, NGT, PIV, SCDs, Dockery catheter, bilateral upper extremity soft restraints SKIN: No jaundice, rashes, or lesions. Ecchymoses on upper extremities. Skin tears to bilateral upper extremities. HEAD: Atraumatic. Normocephalic. EYES: Pupils 2 mm, questionable reaction, sedated.No scleral icterus. No injection or drainage. Fundi not examined. ENT: Unable to assess Hearing. Nose without bleeding or purulent drainage. Moist oral mucosa CARDIOVASCULAR: S1-S2 normal, NSR. No murmurs, no JVD. 3+Edema to bilateral upper extremities and 2+ bilateral lower extremities peripheral pulses symmetric. RESPIRATORY/CHEST: Symmetric, unlabored respirations. Rhonchi to auscultation. Diminished in the bases. No wheezes, rales. GASTROINTESTINAL: Abdomen soft, non-tender, nondistended. Bowel sounds present. TF infusing via NGT GENITOURINARY: Without palpable bladder distension. Dockery catheter in place. MUSCULOSKELETAL: Extremities without clubbing, cyanosis. Edema to all four extremities. No mottling or clubbing. NEUROLOGICAL: Intubated, sedated on mechanical ventilation. PSYCHIATRIC: Unable to assess at this time. . Diagnostic Tests Laboratory Laboratory Tests Test 09/06/17 14:38 09/06/17 18:33 09/07/17 00:33 09/07/17 05:34 White Blood Count 12.1 TH/MM3 (4.0-11.0) Red Blood Count 3.43 MIL/MM3 (4.50-5.90) Hemoglobin 10.2 GM/DL (13.0-17.0) Hematocrit 30.9 % (39.0-51.0) Mean Corpuscular Volume 90.1 FL (80.0-100.0) Mean Corpuscular Hemoglobin 29.6 PG (27.0-34.0) Mean Corpuscular Hemoglobin Concent 32.9 % (32.0-36.0) Red Cell Distribution Width 19.8 % (11.6-17.2) Platelet Count 208 TH/MM3 (150-450) Mean Platelet Volume 8.3 FL (7.0-11.0) Prothrombin Time 11.1 SEC (9.8-11.6) Prothromb Time International Ratio 1.1 RATIO Activated Partial Thromboplast Time 31.6 SEC (24.3-30.1) 57.6 SEC (24.3-30.1) 71.7 SEC (24.3-30.1) 82.8 SEC (24.3-30.1) Total Creatine Kinase 25 U/L (39-308) Troponin I 0.82 NG/ML (0.02-0.05) Test 09/07/17 05:54 09/07/17 13:45 09/07/17 20:01 09/08/17 06:08 White Blood Count 11.8 TH/MM3 (4.0-11.0) 16.6 TH/MM3 (4.0-11.0) Red Blood Count 3.54 MIL/MM3 (4.50-5.90) 3.24 MIL/MM3 (4.50-5.90) Hemoglobin 10.0 GM/DL (13.0-17.0) 9.4 GM/DL (13.0-17.0) Hematocrit 31.9 % (39.0-51.0) 29.5 % (39.0-51.0) Mean Corpuscular Volume 90.0 FL (80.0-100.0) 91.2 FL (80.0-100.0) Mean Corpuscular Hemoglobin 28.3 PG (27.0-34.0) 29.0 PG (27.0-34.0) Mean Corpuscular Hemoglobin Concent 31.4 % (32.0-36.0) 31.7 % (32.0-36.0) Red Cell Distribution Width 19.5 % (11.6-17.2) 19.5 % (11.6-17.2) Platelet Count 220 TH/MM3 (150-450) 270 TH/MM3 (150-450) Mean Platelet Volume 8.4 FL (7.0-11.0) 8.2 FL (7.0-11.0) Neutrophils (%) (Auto) 93.7 % (16.0-70.0) 92.0 % (16.0-70.0) Lymphocytes (%) (Auto) 1.2 % (9.0-44.0) 1.4 % (9.0-44.0) Monocytes (%) (Auto) 4.6 % (0.0-8.0) 6.4 % (0.0-8.0) Eosinophils (%) (Auto) 0.0 % (0.0-4.0) 0.0 % (0.0-4.0) Basophils (%) (Auto) 0.5 % (0.0-2.0) 0.2 % (0.0-2.0) Neutrophils # (Auto) 11.0 TH/MM3 (1.8-7.7) 15.3 TH/MM3 (1.8-7.7) Lymphocytes # (Auto) 0.1 TH/MM3 (1.0-4.8) 0.2 TH/MM3 (1.0-4.8) Monocytes # (Auto) 0.5 TH/MM3 (0-0.9) 1.1 TH/MM3 (0-0.9) Eosinophils # (Auto) 0.0 TH/MM3 (0-0.4) 0.0 TH/MM3 (0-0.4) Basophils # (Auto) 0.1 TH/MM3 (0-0.2) 0.0 TH/MM3 (0-0.2) CBC Comment DIFF FINAL AUTO DIFF Differential Comment FINAL DIFF MANUAL Blood Urea Nitrogen 34 MG/DL (7-18) 39 MG/DL (7-18) Creatinine 0.98 MG/DL (0.60-1.30) 1.00 MG/DL (0.60-1.30) Random Glucose 154 MG/DL (74-106) 173 MG/DL (74-106) Total Protein 5.7 GM/DL (6.4-8.2) 5.7 GM/DL (6.4-8.2) Albumin 2.1 GM/DL (3.4-5.0) 2.3 GM/DL (3.4-5.0) Calcium Level 8.0 MG/DL (8.5-10.1) 7.9 MG/DL (8.5-10.1) Phosphorus Level 3.6 MG/DL (2.5-4.9) 4.5 MG/DL (2.5-4.9) Magnesium Level 2.4 MG/DL (1.5-2.5) 2.3 MG/DL (1.5-2.5) Alkaline Phosphatase 84 U/L (45-117) 78 U/L (45-117) Aspartate Amino Transf (AST/SGOT) 30 U/L (15-37) 28 U/L (15-37) Alanine Aminotransferase (ALT/SGPT) 55 U/L (12-78) 58 U/L (12-78) Total Bilirubin 0.4 MG/DL (0.2-1.0) 0.4 MG/DL (0.2-1.0) Sodium Level 149 MEQ/L (136-145) 146 MEQ/L (136-145) Potassium Level 4.6 MEQ/L (3.5-5.1) 4.4 MEQ/L (3.5-5.1) Chloride Level 108 MEQ/L (98-107) 107 MEQ/L (98-107) Carbon Dioxide Level 34.5 MEQ/L (21.0-32.0) 30.8 MEQ/L (21.0-32.0) Anion Gap 7 MEQ/L (5-15) 8 MEQ/L (5-15) Estimat Glomerular Filtration Rate 78 ML/MIN (>89) 76 ML/MIN (>89) Troponin I 1.06 NG/ML (0.02-0.05) 0.83 NG/ML (0.02-0.05) Activated Partial Thromboplast Time 50.6 SEC (24.3-30.1) 47.1 SEC (24.3-30.1) 46.8 SEC (24.3-30.1) Differential Total Cells Counted 100 Neutrophils % (Manual) 87 % (16-70) Band Neutrophils % 2 % (0-6) Lymphocytes % 1 % (9-44) Monocytes % 2 % (0-8) Neutrophils # (Manual) 16.1 TH/MM3 (1.8-7.7) Metamyelocytes 3 % (0-1) Myelocytes 4 % (0-0) Promyelocytes 1 % (0-0) Platelet Estimate NORMAL (NORMAL) Platelet Morphology Comment NORMAL (NORMAL) Basophilic Stippling FAINT (NORMAL) Ovalocytes 1+ (NORMAL) Triglycerides Level 178 MG/DL (42-150) Cholesterol Level 174 MG/DL (120-200) LDL Cholesterol 102 MG/DL (0-99) HDL Cholesterol 36.8 MG/DL (40.0-60.0) Cholesterol/HDL Ratio 4.72 RATIO Test 09/09/17 09:12 09/09/17 11:29 White Blood Count 13.0 TH/MM3 (4.0-11.0) Red Blood Count 2.79 MIL/MM3 (4.50-5.90) Hemoglobin 8.2 GM/DL (13.0-17.0) Hematocrit 25.2 % (39.0-51.0) Mean Corpuscular Volume 90.4 FL (80.0-100.0) Mean Corpuscular Hemoglobin 29.3 PG (27.0-34.0) Mean Corpuscular Hemoglobin Concent 32.5 % (32.0-36.0) Red Cell Distribution Width 19.6 % (11.6-17.2) Platelet Count 184 TH/MM3 (150-450) Mean Platelet Volume 8.4 FL (7.0-11.0) Activated Partial Thromboplast Time 52.7 SEC (24.3-30.1) Result Diagram: 09/09/17 0912 09/08/17 0608 Imaging Last 48 hours Impressions Chest X-Ray 09/08/17 0600 Signed Impressions: Service Date/Time: Friday, September 08, 2017 04:07 - CONCLUSION: Stable appearance to the chest. Persistent consolidation left lower lobe. Luis Castro MD Procedures 08/29/17-intubation 08/31/17-self extubation 08/31/17-reintubated . Assessment and Plan Disease Oriented Problem List: (1) Acute respiratory failure with hypoxia and hypercarbia (2) Lung cancer (3) Atrial fibrillation with RVR (4) Lung consolidation (5) COPD (chronic obstructive pulmonary disease) Symptom Scale: (1) Shortness of breath Comment: Hx of lung cancer. CT angiography revealed multilobar consolidation and no evidence for pulmonary embolism, extensive coronary calcifications. . (2) Pain Comment: Risk for pain-from procedure (intubation), bedbound status. . (3) Debility 0-10 Scale: Unable to quantify Comment: Progressive . Pertinent Non-Medical Issues Psychosocial:Patient was born and raised in [place]. He left [place] the age of 20. Patient moved to [place] in 1975. Patient has a 2 years college degree in [employer] technology. 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 Patient was and twice. He never had children. Spiritual:N shinto affiliation Legal:Patient has a [facility] form signed and completed a Community DNR Ethical issues impacting care:None identified at this time . Important Contacts Alternate [facility]- Cousin- Dahiana Mayorga [phone] Friend-Nemo [phone] [facility]- (Long time friend-15 yrs) Kay Rizvi [phone]- . Prognosis Mr Adams is a 61 years old male with a past medical history significant of lung cancer s/p radiation, COPD, hypertension, coronary artery disease and tobacco use. Patient presented to the ER via EMS on 08/29/17 complaining of shortness of breath that had started the night before, generalized malaise and weakness. Clinical course complicated with atrial fibrillation with RVR, and acute hypoxic and hypercapnic respiratory failure. Given ongoing comorbidities , patient remains at high risk for further complications, deterioration and decline. . Code Status: Full Code Plan PLAN: Legal decision maker: Patient is currently intubated, sedated on mechanical ventilation and is not able to participate in decision-making. Patient`s cousin Dahiana Mayorga whom he has designated as his alternate healthcare surrogate will make medical decisions for patient. Goals: Remain Aggressive CODE STATUS: Full code Per previous conversation 09/09 with patient's healthcare surrogate Dahiana, goals remain aggressive. SYMPTOMS: * Shortness of breath: Patient has history of lung cancer, COPD and tobacco use. Patient presented with shortness of breath. Intubated 08/29, self extubated 08/31, reintubated 08/31 secondary to respiratory failure. Worsening chest x-ray today. Solu-Medrol and duo nebs prn.Failing CPAP trials. Back on ventilator full support. Positive 22L since admission. Being diuresed today, CPAP trials to resume 09/10/17. No recommendations at this time * Pain: Patient is at risk for pain, required intubation in the ER. Currently bedbound. Fentanyl infusion at 200mcg/hr. No signs of pain noted. No recommendations at this time. * Debility: Progressive: Hx of lung cancer s/p radiation. Multiple hospitalizations. Patient may benefit from PT consultation if goals remain aggressive. . Palliative care will continue to follow the patient during hospital course as condition evolves, to assist patient/decision-maker with understanding of their medical conditions, weighing benefits/burdens of treatment options, for clarification of goals of treatment. Additionally will assist with any symptoms of palliative concern Attestation To help prompt me to consider important information that might be impacting today's encounter and assessment, information from prior notes written by myself or my colleagues may have been "brought forward" into today's note. My signature on this note, however, is an attestation that I personally performed the exam, history, and/or decision-making noted today, and, unless otherwise indicated, the interactions with patient, family, and staff as well as the review of records all occurred today. I also attest that the listed assessment and stated plan reflect my best clinical judgment today based on the combination of historical information, prior notes, and today's exam/ interactions. When time spent is documented, it refers only to time spent today by the signer, or if indicated, combined time spent today by collaborating physician/nurse practitioner. Randa Tenorio September 09, 2017 12:14
[2017-09-09 12:15] LABS: ALKALINE PHOSPHATASE 65 U/L (45-117); TOTAL BILIRUBIN ADULT 0.4 MG/DL (0.2-1.0); TOTAL PROTEIN 5.4 GM/DL (6.4-8.2)
[2017-09-09] MEDS: LEVOFLOXACIN 250 MG PREMIX INJ 50 ML IV SCH (12:53)
--- NOTE | 2017-09-09 13:10 | HHI.IDPN ---
Note Infectious Disease Note Patient continues to undergo CPAP trials. Being diuresed. Opens eyes. Afebrile. Presented to the emergency department on 08/29 with respiratory symptoms. Intubated in the ED. PAST MEDICAL HISTORY: Left lung cancer, being treated with chemotherapy and radiation, coronary artery disease, peripheral arterial disease, COPD, hypertension, anxiety, depression, bilateral cataract surgery, recent pneumonia due to Pseudomonas in 04/2017 and 07/2017, history of iliac artery bypass surgery. ALLERGIES: NO KNOWN DRUG ALLERGIES. Antibiotics: Piperacillin/tazobactam. Levaquin. Objective: Vital Signs Date Time Temp Pulse Resp B/P (MAP) Pulse Ox O2 Delivery O2 Flow Rate FiO2 09/09/17 11:16 96 45 09/09/17 10:00 73 09/09/17 08:04 94 45 09/09/17 08:00 76 09/09/17 08:00 45 09/09/17 08:00 98.5 76 153/83 (106) 96 09/09/17 07:00 94 Mechanical Ventilator 09/09/17 06:00 71 09/09/17 04:00 98.7 78 16 161/89 (113) 98 09/09/17 04:00 45 09/09/17 04:00 78 09/09/17 03:58 98 45 09/09/17 02:00 72 09/09/17 00:00 45 09/09/17 00:00 77 09/09/17 00:00 98.7 77 16 156/84 (108) 97 09/08/17 23:53 97 45 09/08/17 22:00 77 09/08/17 20:05 95 45 09/08/17 20:00 98.9 77 16 142/79 (100) 95 09/08/17 20:00 45 09/08/17 20:00 77 09/08/17 19:00 100 Mechanical Ventilator 09/08/17 18:00 81 09/08/17 16:00 98.8 77 132/71 (91) 94 09/08/17 16:00 77 09/08/17 16:00 45 09/08/17 16:00 77 09/08/17 15:32 94 45 09/08/17 15:00 86 158/90 (112) 92 09/08/17 14:17 95 45 09/08/17 14:17 50 09/08/17 14:00 83 09/08/17 14:00 83 154/84 (107) 91 Laboratory Tests Test 09/08/17 06:08 09/09/17 09:12 White Blood Count 16.6 TH/MM3 13.0 TH/MM3 Red Blood Count 3.24 MIL/MM3 2.79 MIL/MM3 Hemoglobin 9.4 GM/DL 8.2 GM/DL Hematocrit 29.5 % 25.2 % Mean Corpuscular Volume 91.2 FL 90.4 FL Mean Corpuscular Hemoglobin 29.0 PG 29.3 PG Mean Corpuscular Hemoglobin Concent 31.7 % 32.5 % Red Cell Distribution Width 19.5 % 19.6 % Platelet Count 270 TH/MM3 184 TH/MM3 Mean Platelet Volume 8.2 FL 8.4 FL Neutrophils (%) (Auto) 92.0 % Lymphocytes (%) (Auto) 1.4 % Monocytes (%) (Auto) 6.4 % Eosinophils (%) (Auto) 0.0 % Basophils (%) (Auto) 0.2 % Neutrophils # (Auto) 15.3 TH/MM3 Lymphocytes # (Auto) 0.2 TH/MM3 Monocytes # (Auto) 1.1 TH/MM3 Eosinophils # (Auto) 0.0 TH/MM3 Basophils # (Auto) 0.0 TH/MM3 CBC Comment AUTO DIFF Differential Total Cells Counted 100 Neutrophils % (Manual) 87 % Band Neutrophils % 2 % Lymphocytes % 1 % Monocytes % 2 % Neutrophils # (Manual) 16.1 TH/MM3 Metamyelocytes 3 % Myelocytes 4 % Promyelocytes 1 % Differential Comment FINAL DIFF MANUAL Platelet Estimate NORMAL Platelet Morphology Comment NORMAL Basophilic Stippling FAINT Ovalocytes 1+ Laboratory Tests Test 09/08/17 06:08 09/09/17 11:29 Blood Urea Nitrogen 39 MG/DL 44 MG/DL Creatinine 1.00 MG/DL 1.01 MG/DL Random Glucose 173 MG/DL 159 MG/DL Total Protein 5.7 GM/DL 5.4 GM/DL Albumin 2.3 GM/DL 2.1 GM/DL Calcium Level 7.9 MG/DL 7.9 MG/DL Phosphorus Level 4.5 MG/DL 4.1 MG/DL Magnesium Level 2.3 MG/DL 2.2 MG/DL Alkaline Phosphatase 78 U/L 65 U/L Aspartate Amino Transf (AST/SGOT) 28 U/L 19 U/L Alanine Aminotransferase (ALT/SGPT) 58 U/L 41 U/L Total Bilirubin 0.4 MG/DL 0.4 MG/DL Sodium Level 146 MEQ/L 146 MEQ/L Potassium Level 4.4 MEQ/L 4.3 MEQ/L Chloride Level 107 MEQ/L 108 MEQ/L Carbon Dioxide Level 30.8 MEQ/L 30.8 MEQ/L Anion Gap 8 MEQ/L 7 MEQ/L Estimat Glomerular Filtration Rate 76 ML/MIN 75 ML/MIN Troponin I 0.83 NG/ML Triglycerides Level 178 MG/DL Cholesterol Level 174 MG/DL LDL Cholesterol 102 MG/DL HDL Cholesterol 36.8 MG/DL Cholesterol/HDL Ratio 4.72 RATIO IMAGING: Chest X-Ray 09/08/17 0600 Signed Impressions: Service Date/Time: Friday, September 08, 2017 04:07 - CONCLUSION: Stable appearance to the chest. Persistent consolidation left lower lobe. Luis Castro MD Chest X-Ray 09/07/17 0600 Signed Impressions: Service Date/Time: Thursday, September 07, 2017 04:21 - CONCLUSION: Increasing consolidation left lower lobe a combination of airspace disease and pleural effusion. Luis Castro MD Chest X-Ray 09/06/17 0600 Signed Impressions: Service Date/Time: Wednesday, September 06, 2017 03:03 - CONCLUSION: Improving aeration Dmitri Mohan MD Chest X-Ray 09/02/17 0000 Signed Impressions: Service Date/Time: Saturday, September 02, 2017 06:32 - CONCLUSION: Bilateral airspace disease with interval worsening in the left base. Possible developing left-sided effusion. Jaret Crouch MD Abdomen X-Ray 08/31/17 0000 Signed Impressions: Service Date/Time: Thursday, August 31, 2017 20:34 - CONCLUSION: 1. Nasogastric tube tip in distal stomach. David Jay MD CT Angiography 08/29/17 184 Signed Impressions: Service Date/Time: Tuesday, August 29, 2017 19:36 - CONCLUSION: 1. Multilobar consolidation. 2. No evidence for pulmonary embolism. 3. Extensive coronary calcifications Pk Bae MD PHYSICAL EXAMINATION: GENERAL: On the ventilator. HEENT: Pupils reactive to light. No icterus. Moist oral mucosa. NECK: No swelling. No adenopathy. LUNGS: Slight decreased breath sounds at the bases. HEART: Regular rate and rhythm. Slight systolic murmur at the left sternal border. ABDOMEN: Bowel sounds present, soft. EXTREMITIES: Ecchymosis and edema at both upper extremities. No clubbing or cyanosis. SKIN: No diffuse rash. NEUROLOGIC: Unable to assess. PSYCHIATRIC: Unable to assess. IMPRESSION: 1. Bilateral pneumonia due to Pseudomonas. 2. Acute respiratory failure. 3. History of lung cancer. RECOMMENDATIONS: 1. Continue piperacillin/tazobactam. 2. Continue Levaquin. 3. Continue to follow temperature and monitor clinical status. Herve Zarate MD September 09, 2017 13:10
[2017-09-09 18:15] LABS: BICARBONATE 30.4 MEQ/L (21.0-32.0); CALCIUM 8.3 MG/DL (8.5-10.1); CREATININE 0.95 MG/DL (0.60-1.30); MAGNESIUM 2.2 MG/DL (1.5-2.5)
[2017-09-10] VITALS (20 sets, daily range): BP systolic 117–176; BP diastolic 70–100; PULSE 77–150; RESP 16; TEMP 98–99.9; O2SAT 92–100
[2017-09-10] MEDS: PIPERACIL-TAZO 4.5 GM PREMIX 100 ML IV SCH ×4 (01:07→20:27)
[2017-09-10] MEDS: RESP: ALBUTEROL 2.5 MG/IPRATROPIUM 0.5 MG NEB (SCH) NEB ×4 (02:44→15:06)
[2017-09-10] MEDS: DILTIAZEM HCL 90 MG TAB PO SCH ×4 (03:00→20:34)
[2017-09-10] MEDS: HEPARIN-D5W 25,000 U/250 ML 250 ML IV PRN (04:41)
[2017-09-10] MEDS: hydrALAZINE HCL 25 MG TAB PO SCH ×3 (04:42→20:28)
[2017-09-10] MEDS: PROPOFOL 1000 MG/100 ML INJ 100 ML IV PRN ×2 (04:42→15:46)
[2017-09-10] MEDS: fentaNYL DRIP 250 ML IV PRN ×2 (04:42→23:11)
[2017-09-10] MEDS: ARTIFICIAL TEARS OPTH SOLN 15 ML BTL EACH EYE SCH ×3 (04:42→20:28)
[2017-09-10] MEDS: ISOSORBIDE DINITRATE 10 MG TAB PO SCH ×3 (04:42→20:28)
[2017-09-10] MEDS: FREE WATER NG SCH ×3 (04:43→18:00)
--- NOTE | 2017-09-10 05:01 | RADRPT ---
EXAM DATE/TIME: 09/10/2017 03:12 [facility] COMPARISON: CHEST SINGLE AP, September 08, 2017, 4:07. INDICATIONS : Shortness of breath, followup consolidation in the left lung base.. MEDICAL HISTORY : Hypertension. Chronic obstructive pulmonary disease. Carcinoma, lung. SURGICAL HISTORY : None. ENCOUNTER: Subsequent ACUITY: 1 week PAIN SCORE: Non-responsive. LOCATION: Bilateral chest FINDINGS: A single AP semierect portable view of the chest was obtained and again demonstrates endotracheal tub e in place with the tip approximately 3 cm above the evelia. The nasogastric tube remains in place. T here is been a mild interval improvement in the consolidative opacity at the left lung base with foca l consolidation remaining in the perihilar region. There is more diffuse hazy opacity in the right merly ng greatest at the right lung base. The right costophrenic angle appears mildly blunted. The heart si ze is within normal limits. The bony thorax remains intact. Multiple overlying electrocardiogram lead s are present. CONCLUSION: 1. Interval improvement in consolidative opacity in the left lung base with focal consolidation remai dorina in the left perihilar region. 2. More hazy diffuse opacity remains in the right lung. Willy Pantoja MD on September 10, 2017 at 4:59 Board Certified Radiologist. This report was verified electronically.
[2017-09-10] MEDS: INSULIN NovoLIN REGULAR SUPPLEMENTAL SCALE SQ SCH ×3 (05:02→18:54)
[2017-09-10 06:15] LABS: ALBUMIN 2.3 GM/DL (3.4-5.0); AST (GOT) 23 U/L (15-37); BICARBONATE 29.4 MEQ/L (21.0-32.0); BLOOD UREA NITROGEN 40 MG/DL (7-18); CALCIUM 8.2 MG/DL (8.5-10.1); CHLORIDE 106 MEQ/L (98-107); CREATININE 0.97 MG/DL (0.60-1.30); GLOMERULAR FILTRATION RATE 78 ML/MIN (>89); GLUCOSE,RANDOM 111 MG/DL (74-106); MAGNESIUM 2.1 MG/DL (1.5-2.5); SODIUM (NA) 145 MEQ/L (136-145)
[2017-09-10 06:16] LABS: ALT (GPT) 36 U/L (12-78); PHOSPHORUS 3.9 MG/DL (2.5-4.9)
[2017-09-10 06:18] LABS: ALKALINE PHOSPHATASE 84 U/L (45-117); TOTAL BILIRUBIN ADULT 0.4 MG/DL (0.2-1.0); TOTAL PROTEIN 5.4 GM/DL (6.4-8.2)
[2017-09-10] MEDS ORDERED: ALBUMIN 25% INJ 100 ML IV ONE (07:00)
--- NOTE | 2017-09-10 07:42 | HHI.CCPN ---
Subjective Remarks/Hospital Course 08/29: This is a 61-year-old male with a history of lung cancer undergoing current chemotherapy and radiation who was recently admitted on 07/19 for aspiration pneumonia. During that admission he did have episodes of paroxysmal atrial fibrillation and had an echo from 04/2017 showing an EF of 50-55%. He represents today to the emergency department with acute shortness of breath since last night. Per the ER documentation, he denies any coughing, fever, chills, or other recent symptoms or changes other than the new dyspnea. In the emergency department he was found to be in A. fib with RVR. This initially converted to sinus rhythm 1 after diltiazem 20 mg IV bolus, but then very quickly went back into atrial for ablation with rapid ventricular response. 2 doses of adenosine were not able to convert it. The patient was loaded with amiodarone and infusion was started. After this, the patient become acutely hypoxemic requiring emergent intubation. Please refer to the emergency room physician documentation for additional details regarding the decompensation. When I came to evaluate patient, the patient was recently intubated, sedated. No additional information is available from the patient due to his clinical condition. Review of systems is unobtainable. Critical care medicine is consulted to evaluate manage his acute hypoxic respiratory failure along with his acute supraventricular tachycardia. 08/30: Patient remains intubated and sedated. FiO2 down to 0.5. Patient continues to be on amiodarone infusion and heparin drip. Sedation achieved with propofol and fentanyl. Patient remains hypothermic requiring Gracia hugger, urine output 350 mL's documented since admission. 08/31: No events over the night. Patient remains intubated and sedated. Hemoglobin more stable posttransfusion. Hypothermia resolved, T-max of 100.3. Urine output remains low, 635 mL's over the last 24 hours. Oxygenation is improved. No family present at bedside. Patient remains in sinus rhythm, on amiodarone infusion. No report of melena, hematochezia or coffee-ground aspirate from NG tube. Morning chest x-ray reviewed, worsening infiltrates over the right thorax, unchanged consolidation over the left. 09/01: Afebrile. Patient was extubated yesterday afternoon and emergently intubated 1030 last night secondary to hypoxemic respiratory failure. This x- ray pending this a.m.. The patient also was noted to have severe metabolic acidosis and sodium bicarbonate infusion was initiated. Patient noted to have Pseudomonas, and placed on Zosyn. Patient continues to have leukocytosis with worsening pneumonia ID has been consulted appreciate recommendations. Patient previously DNR palliative has been consulted up on hypoxemic respiratory failure patient was noted to request intubation at that time. Palliative care consult pending. Patient continues on amiodarone infusion now in sinus rhythm. Amiodarone infusion discontinued the patient continued on metoprolol and Cardizem home medications. Hemoglobin appears stable status post 2 units transfusion 48 hours ago. Will do serial H&H's aspirin reinitiated will hold Plavix for now, and continue to follow. Subcu heparin initiated. 09/02: Afebrile. Hemoglobin stable for the last 24 hours. Plan to restart tube feeds this a.m.. Metabolic acidosis resolved, patient's sodium bicarbonate discontinued. Patient requiring increasing FiO2 requirements during the night , now at 100% ABG pending. This am chest x-ray worsening. 09/03: Late entry note patient seen at 8:15 AM .afebrile. Chest x-ray continues to worsen. FiO2 requirement slightly decreased we will attempt CPAP trials today. 09/04: Afebrile. patient awake and following commands this a.m. Currently on CPAP trials. FiO2 weaned to 45% 09/05: Afebrile. Patient tolerating CPAP trials. She noted to have elevated blood glucose level secondary methylprednisolone. Chest x-ray now improving methylprednisolone taper initiated. Patient noted to still have episodes of hypertension Cardizem increased to 90 mg every 6 hours. 09/06: Patient currently in a flutter. Received adenosine 12 mg 1 which feels a flutter. Echocardiogram CPK and troponin ordered. TSH normal during this hospitalization. Potassium magnesium both normalized. Arousable and follows commands. Subjective 09/07: Patient is currently on PSV trial 20/8 ~35%. Patient oscillating on CODE STATUS. Tolerating tube feeds. Remains in normal sinus rhythm on amiodarone drip. 09/08: No events over the night. CPAP trial was attempted this morning patient went into A. fib with RVR after 15 minutes. Patient was switched back to full support, and converted to sinus rhythm. He continues to be on amiodarone infusion and heparin drip. He is lethargic but easily arousable able to follow some commands. FiO2 at 0.5 and PEEP at 8. T-max of 99. 5/9: No events over the night. T-max of 98.9. Patient remains intubated and sedated, on propofol and fentanyl. CPAP trial attempted this morning again and patient went into A. fib with RVR and hypoxia, therefore he was placed back on PRVC. No family present at bedside. Urine output of 2350 mL over the last 24 hours. He is +22 L since admission charting is correct. 09/10: No events over the night. This morning patient is in A. fib with RVR heart rate 150, hemodynamically stable. Patient had excellent response to diuresis, urine output greater than 4 L over the last 24 hours. T-max of 98.5. No family present at bedside. Morning chest x-ray reviewed. Objective Vital Signs Date Time Temp Pulse Resp B/P (MAP) Pulse Ox O2 Delivery O2 Flow Rate FiO2 09/10/17 06:00 92 09/10/17 04:04 94 55 09/10/17 04:00 98.0 16 167/94 (118) 09/09/17 19:00 Mechanical Ventilator Intake and Output 09/10/17 09/10/17 09/11/17 08:00 16:00 00:00 Intake Total 1630 ml Output Total 2000 ml Balance -370 ml Result Diagram: 09/09/17 0912 09/10/17 0512 Imaging Last 24 hours Impressions Chest X-Ray 09/10/17599 Signed Impressions: Service Date/Time: September 03:12 - CONCLUSION: 1. Interval improvement in consolidative opacity in the left lung base with focal consolidation remaining in the left perihilar region. 2. More hazy diffuse opacity remains in the right lung. Willy Pantoja MD Last 24 hours Impressions Chest X-Ray 09/08/17599 Signed Impressions: Service Date/Time: Friday, September 08, 2017 04:07 - CONCLUSION: Stable appearance to the chest. Persistent consolidation left lower lobe. Luis Castro MD Last Impressions Chest X-Ray 09/07/17599 Signed Impressions: Service Date/Time: Thursday, September 07, 2017 04:21 - CONCLUSION: Increasing consolidation left lower lobe a combination of airspace disease and pleural effusion. Luis Castro MD Abdomen X-Ray 08/31/17 0000 Signed Impressions: Service Date/Time: Thursday, August 31, 2017 20:34 - CONCLUSION: 1. Nasogastric tube tip in distal stomach. David Jay MD CT Angiography 08/29/17 1849 Signed Impressions: Service Date/Time: Tuesday, August 29, 2017 19:36 - CONCLUSION: 1. Multilobar consolidation. 2. No evidence for pulmonary embolism. 3. Extensive coronary calcifications Pk Bae MD Objective Remarks General - elderly gentleman, intubated, sedated, arousable, ill-appearing HEENT - pupils equal, reactive, sclerae anicteric, neck supple, no rigidity, no JVD, orally intubated CV - irregular heart sounds, no murmurs, rubs or gallops Chest - coarse breath sounds b/l, good air entry, no wheezes Abdomen - remains soft, not distended, non-tender, BS present Extremities - warm, 2+ edema over both lower extremities, and 3+ edema over upper extremities, + peripheral pulses Neuro - pupils are equal and reactive, opens eyes to voice stimuli, follows some commands, moves all extremities but he remains weak A/P Problem List: (1) OBED (acute kidney injury) ICD Code: N17.9 - Acute kidney failure, unspecified (2) Severe protein-calorie malnutrition ICD Code: E43 - Unspecified severe protein-calorie malnutrition Status: Chronic (3) Shortness of breath ICD Code: R06.02 - Shortness of breath Status: Acute (4) Tobacco abuse ICD Code: Z72.0 - Tobacco use Status: Chronic (5) Paroxysmal A-fib ICD Code: I48.0 - Paroxysmal atrial fibrillation Status: Chronic (6) Atrial fibrillation with RVR ICD Code: I48.91 - Unspecified atrial fibrillation Status: Resolved (7) PNA (pneumonia) ICD Code: J18.9 - Pneumonia, unspecified organism (8) COPD (chronic obstructive pulmonary disease) ICD Code: J44.9 - Chronic obstructive pulmonary disease, unspecified (9) Lung cancer ICD Code: C34.90 - Malignant neoplasm of unspecified part of unspecified bronchus or lung (10) Debility ICD Code: R53.81 - Other malaise Status: Chronic (11) Pain ICD Code: R52 - Pain, unspecified Status: Chronic (12) Lung consolidation ICD Code: J18.1 - Lobar pneumonia, unspecified organism Status: Acute (13) Acute respiratory failure with hypoxia and hypercarbia ICD Code: J96.01 - Acute respiratory failure with hypoxia; J96.02 - Acute respiratory failure with hypercapnia Assessment and Plan 1. Acute hypoxic and hypercapnic respiratory failure -very slowly improving 2. Pseudomonas pneumonia 3. Acute COPD exacerbation -resolved 4. Lung cancer currently undergoing radiation therapy and chemotherapy 5. Atrial fibrillation with rapid ventricular response -currently back in A. fib with RVR 6. Elevated Troponin - trending down 7. Acute blood loss anemia -resolved 8. OBED -resolved 9. Volume overload -patient more than 22 L positive since admission if charting is correct 1. Continue PRVC, patient is synchronized with the vent, no auto PEEP, PIP is 31. Tidal volume decreased to 500 with subsequent improvement in peak inspiratory pressure 2. Vent bundle and bronchodilators 3. Taper steroids 4. Continue aggressive diuresis. Give 1 dose of albumin 5. Minimize sedation 6. If okay with cardiology, rebolus with amiodarone 150 followed by drip 7. On heparin 8. Metoprolol tartrate 50 mg twice daily. Cardizem increased to 90 mg 4 times daily. Home medication is 240 mg daily 9. Holding lisinopril 5 mg daily medication. Add isosorbide mononitrate 10 mg 3 times daily and hydralazine 25 mg 3 times daily 10. On statin, aspirin and clopidogrel 11. On Zosyn and levofloxacin, followed by ID 12. Continue tube feeds, currently at goal 13. GI prophylaxis 14. DVT prophylaxis -on heparin drip No family present at bedside. Level 2 follow-up Problem Qualifiers (1) PNA (pneumonia): Qualified Codes: J18.1 - Lobar pneumonia, unspecified organism uSnny Herrera MD September 10, 2017 07:42
--- NOTE | 2017-09-10 07:51 | PD.CARD.PN ---
Subjective Subjective Remarks Intubated Objective Medications Current Medications Medications (Trade) Dose Ordered Sig/[place] Route Start Time Stop Time Status Last Admin (NS Flush) 2 ml UNSCH PRN IVF 08/29/17 18:00 09/07/17 08:49 Potassium Chloride 100 ml @ 50 mls/hr Q2H PRN IV 08/29/17 18:45 Potassium Chloride 100 ml @ 50 mls/hr Q2H PRN IV 08/29/17 18:45 09/03/17 23:09 (K-Lyte Cl Eff) 50 meq UNSCH PRN PO 08/29/17 18:45 Potassium Chloride 100 ml @ 25 mls/hr UNSCH PRN IV 08/29/17 18:45 Potassium Chloride 100 ml @ 50 mls/hr Q2H PRN IV 08/29/17 18:45 Magnesium Sulfate 4 gm/Sodium Chloride 100 ml @ 50 mls/hr UNSCH PRN IV 08/29/17 18:45 (Mag-Ox) 800 mg UNSCH PRN PO 08/29/17 18:45 Magnesium Sulfate 2 gm/Sodium Chloride 100 ml @ 50 mls/hr UNSCH PRN IV 08/29/17 18:45 (K-Phos) 2,000 mg Q4H PRN PO 08/29/17 18:45 Sodium Phosphate 30 mmol/Sodium Chloride 250 ml @ 42 mls/hr UNSCH PRN IV 08/29/17 18:45 (K-Phos) 2,000 mg UNSCH PRN PO/TUBE 08/29/17 18:45 Potassium Phosphate 30 mmol/ Sodium Chloride 260 ml @ 42 mls/hr UNSCH PRN IV 08/29/17 18:45 (D50w (Vial) Inj) 25 ml UNSCH PRN IV PUSH 08/29/17 18:45 (NovoLIN R SUPPLEMENTAL SCALE) 1 Q6HR SQ 08/30/17 00:00 09/09/17 23:14 Piperacillin Sod/ Tazobactam Sod 100 ml @ 200 mls/hr Q6H IV 08/29/17 20:00 09/12/17 19:59 09/10/17 01:07 (Zofran Inj) 4 mg Q6H PRN IV PUSH 08/29/17 18:45 08/31/17 19:59 [place] 1 Q361D XX 08/29/17 18:45 08/29/17 18:45 (Chlorhexidine 2% Cloth) Taper DAILY@04 TOP 08/30/17 04:00 08/26/18 03:59 09/08/17 03:38 (Chlorhexidine 2% Cloth) 3 pack UNSCH PRN TOP 08/29/17 18:45 (Nata-Colace) 1 tab BID PO 08/29/17 21:00 09/09/17 20:44 (Milk Of Magnesia Liq) 30 ml Q12H PRN PO 08/29/17 18:45 (NS Flush) 2 ml UNSCH PRN IVF 08/29/17 19:30 09/07/17 08:49 (Peridex 0.12% Liq) 15 ml BID@08,20 MT 09/01/17 08:00 09/09/17 19:07 Propofol 100 ml @ 1.65 mls/hr TITRATE PRN IV 08/31/17 22:30 09/10/17 04:42 (Pravachol) 10 mg DAILY PO 09/01/17 09:00 09/09/17 08:52 (Lopressor) 50 mg Q12HR PO 09/01/17 09:00 09/09/17 20:46 (Aspirin Chew) 81 mg DAILY CHEW 09/01/17 09:00 09/09/17 08:53 (Senokot) 17.2 mg Q12H PRN PO 09/02/17 08:15 (Dulcolax Supp) 10 mg DAILY PRN RECTAL 09/02/17 08:15 (Lactulose Liq) 30 ml DAILY PRN PO 09/02/17 08:15 (Lactulose Liq) 30 ml DAILY PO 09/02/17 09:00 09/08/17 08:30 Fentanyl Citrate 250 ml @ 5 mls/hr TITRATE PRN IV 09/02/17 17:30 09/10/17 04:42 Levofloxacin/ Dextrose 50 ml @ 50 mls/hr Q24H IV 09/04/17 13:00 09/09/17 12:53 (Trandate Inj) 10 mg Q4H PRN IV PUSH 09/03/17 22:00 09/06/17 11:12 (Apresoline Inj) 20 mg Q4H PRN IV PUSH 09/03/17 22:00 09/07/17 15:08 (Cardizem) 90 mg Q6H PO 09/05/17 15:00 09/10/17 04:42 Amiodarone HCl 450 mg/Sodium Chloride 250 ml @ 33.33 mls/ hr Q7H31M PRN IV 09/06/17 12:33 09/08/17 00:16 (Duoneb Neb) 1 ampule Q4HR NEB NEB 09/06/17 16:00 09/10/17 02:44 (Albuterol Neb) 2.5 mg Q2HR NEB PRN NEB 09/06/17 12:30 (Tears Naturale Opth Soln) 1 drop Q8HR EACH EYE 09/06/17 14:00 09/10/17 04:42 (Prevacid Odt) 30 mg DAILY NG 09/07/17 09:00 09/09/17 08:52 Heparin Sodium/ Dextrose 250 ml @ 10 mls/hr TITRATE PRN IV 09/06/17 12:45 09/10/17 04:41 (Plavix) 75 mg DAILY PO 09/07/17 09:00 09/09/17 08:53 (Free Water) VOLUME: 200 ML Q6HR NG 09/07/17 18:00 09/10/17 04:43 (Trandate Inj) 10 mg Q1HR PRN IV PUSH 09/07/17 16:00 09/07/17 18:09 (Apresoline Inj) 10 mg Q1HR PRN IV PUSH 09/07/17 16:00 (Nitroglycerin 2% Oint) 2 inch Q6HR PRN TOPICAL 09/07/17 16:00 (Isordil) 10 mg Q8HR PO 09/07/17 22:00 09/10/17 04:42 (Apresoline) 25 mg Q8HR PO 09/07/17 22:00 09/10/17 04:42 (Cordarone) 400 mg Q12HR NG 09/08/17 21:00 09/09/17 20:45 (SoluMEDROL INJ) 40 mg DAILY IV PUSH 09/10/17 09:00 Albumin Human 100 ml @ 60 mls/hr ONCE ONCE IV 09/10/17 07:00 09/10/17 08:39 (Lasix Inj) 40 mg ONCE ONCE IV PUSH 09/10/17 08:00 09/10/17 08:01 Vital Signs / I&O Vital Signs Date Time Temp Pulse Resp B/P (MAP) Pulse Ox O2 Delivery O2 Flow Rate FiO2 09/10/17 06:00 92 09/10/17 04:04 94 55 09/10/17 04:00 45 09/10/17 04:00 90 09/10/17 04:00 98.0 90 16 167/94 (118) 92 09/10/17 02:00 92 09/10/17 00:00 45 09/10/17 00:00 98.0 80 16 147/70 (95) 98 09/10/17 00:00 80 09/09/17 23:53 94 55 09/09/17 22:00 85 09/09/17 20:00 45 09/09/17 20:00 98.3 86 16 166/92 (116) 97 09/09/17 20:00 86 09/09/17 19:42 94 55 09/09/17 19:00 95 Mechanical Ventilator 09/09/17 18:00 81 09/09/17 16:00 80 09/09/17 16:00 97.9 80 142/77 (98) 95 09/09/17 16:00 45 09/09/17 15:25 94 50 09/09/17 14:00 71 09/09/17 12:00 69 09/09/17 12:00 45 09/09/17 12:00 98.3 69 16 131/74 (93) 97 09/09/17 11:16 96 45 09/09/17 10:00 73 09/09/17 08:04 94 45 09/09/17 08:00 76 09/09/17 08:00 45 09/09/17 08:00 98.5 76 153/83 (106) 96 I/O 09/09/17 09/09/17 09/09/17 09/10/17 09/10/17 09/10/17 07:00 15:00 23:00 07:00 15:00 23:00 Intake Total 1429 ml 250 ml 1271 ml 1630 ml Output Total 1100 ml 2250 ml 2000 ml Balance 329 ml 250 ml -979 ml -370 ml Intake IV Total 450 ml 250 ml 200 ml 600 ml Tube Feeding 579 ml 671 ml 630 ml Other 400 ml 400 ml 400 ml Output Urine Total 1100 ml 2250 ml 2000 ml # Bowel Movements 1 1 1 Physical Exam Sedated CVP OK Chest: diminished at bases CV S1S2 tachy Echo LVEF 40-45% Mild-Moderate UE edema Tele AF RVR started 6 AM Laboratory Laboratory Tests Test 09/09/17 09:12 09/09/17 11:29 09/09/17 16:38 09/10/17 05:12 White Blood Count 13.0 TH/MM3 Red Blood Count 2.79 MIL/MM3 Hemoglobin 8.2 GM/DL Hematocrit 25.2 % Mean Corpuscular Volume 90.4 FL Mean Corpuscular Hemoglobin 29.3 PG Mean Corpuscular Hemoglobin Concent 32.5 % Red Cell Distribution Width 19.6 % Platelet Count 184 TH/MM3 Mean Platelet Volume 8.4 FL Activated Partial Thromboplast Time 52.7 SEC 35.4 SEC Blood Urea Nitrogen 44 MG/DL 43 MG/DL 40 MG/DL Creatinine 1.01 MG/DL 0.95 MG/DL 0.97 MG/DL Random Glucose 159 MG/DL 106 MG/DL 111 MG/DL Total Protein 5.4 GM/DL 5.4 GM/DL Albumin 2.1 GM/DL 2.3 GM/DL Calcium Level 7.9 MG/DL 8.3 MG/DL 8.2 MG/DL Phosphorus Level 4.1 MG/DL 3.9 MG/DL Magnesium Level 2.2 MG/DL 2.2 MG/DL 2.1 MG/DL Alkaline Phosphatase 65 U/L 84 U/L Aspartate Amino Transf (AST/SGOT) 19 U/L 23 U/L Alanine Aminotransferase (ALT/SGPT) 41 U/L 36 U/L Total Bilirubin 0.4 MG/DL 0.4 MG/DL Sodium Level 146 MEQ/L 146 MEQ/L 145 MEQ/L Potassium Level 4.3 MEQ/L 4.0 MEQ/L 3.9 MEQ/L Chloride Level 108 MEQ/L 105 MEQ/L 106 MEQ/L Carbon Dioxide Level 30.8 MEQ/L 30.4 MEQ/L 29.4 MEQ/L Anion Gap 7 MEQ/L 11 MEQ/L 10 MEQ/L Estimat Glomerular Filtration Rate 75 ML/MIN 80 ML/MIN 78 ML/MIN Imaging Last 24 hours Impressions Chest X-Ray 09/10/17 0600 Signed Impressions: Service Date/Time: September 03:12 - CONCLUSION: 1. Interval improvement in consolidative opacity in the left lung base with focal consolidation remaining in the left perihilar region. 2. More hazy diffuse opacity remains in the right lung. Willy Pantoja MD Assessment and Plan Problem List: (1) Fluid overload ICD Codes: E87.70 - Fluid overload, unspecified (2) Non-STEMI (non-ST elevated myocardial infarction) ICD Codes: I21.4 - Non-ST elevation (NSTEMI) myocardial infarction (3) Paroxysmal A-fib ICD Codes: I48.0 - Paroxysmal atrial fibrillation Status: Chronic Plan: Agree with IV amio with bolus Bernard Nava MD September 10, 2017 07:51
[2017-09-10] MEDS ORDERED: FUROSEMIDE 40 MG/4 ML VIAL IV PUSH ONE (08:00)
[2017-09-10] MEDS: AMIODARONE INJ 450 MG in SODIUM CHLOR 0.9% (EXCEL) INJ 241 ML IV PRN (08:47)
[2017-09-10] MEDS: AMIODARONE 200 MG TAB NG SCH ×2 (09:00→20:34)
[2017-09-10] MEDS ORDERED: AMIODARONE 150 MG/D5W 97 ML BOLUS 10 MINUTES IV ONE ×2 (09:00)
[2017-09-10] MEDS: METOPROLOL TARTRATE 50 MG TAB PO SCH ×3 (09:00→20:28)
[2017-09-10] MEDS: DOCUSATE SODIUM 50 MG/SENNA 8.6 MG TAB PO SCH ×2 (09:00→20:28)
[2017-09-10] MEDS: LACTULOSE SYRUP 20 GM/30 ML CUP PO SCH (09:00)
[2017-09-10] MEDS: PRAVASTATIN SOD 10 MG TAB PO SCH (09:15)
[2017-09-10] MEDS: methylPREDNISolone SOD SUCC 40 MG/1 ML VIAL IV PUSH SCH (09:15)
[2017-09-10] MEDS: CHLORHEXIDINE 0.12% (ORAL KIT) 15 ML CUP MT SCH ×2 (09:16→20:27)
[2017-09-10] MEDS: LANSOPRAZOLE SOLUTAB 30 MG TAB NG SCH (09:16)
[2017-09-10] MEDS: CLOPIDOGREL 75 MG TAB PO SCH (09:16)
[2017-09-10] MEDS: ASPIRIN 81 MG CHEW TAB CHEW SCH (09:16)
[2017-09-10 14:12] LABS: BICARBONATE 30.3 MEQ/L (21.0-32.0); CALCIUM 8.3 MG/DL (8.5-10.1); CREATININE 1.07 MG/DL (0.60-1.30); MAGNESIUM 2.1 MG/DL (1.5-2.5); PHOSPHORUS 4.3 MG/DL (2.5-4.9)
--- NOTE | 2017-09-10 15:19 | HHI.HCPN ---
Reason for visit a. To assist with evaluation and management of symptoms including: Shortness of breath, pain, debility b. To assist medical decision maker(s) with: better understanding of current medical conditions; weighing benefits/burdens of medical treatment options; making medical treatment decisions. Subjective/Interval History Follow up medically necessary for symptom management and further clarification of goals of care. Patient still intubated, on CPAP trial with settings 8/10/40% . Increased work of breathing and O2 saturation in the mid 80`s. Per covering bedside RN, patient has been on CPAP for 1.5 hours. Patient responded to diuresis yesterday. He had urine output greater than 4 L in 24 hours. Respiratory therapist informed of low O2 saturations. Patient has his eyes open , tracks with his eyes and moving his extremities spontaneously. Patient is currently on propofol 5 mcg/kg/min, fentanyl infusion at 100 mcg/hr and amiodarone infusion. Patient was in atrial fibrillation with rapid ventricular response with heart rate in the hospital 150s this morning, was bolused with amiodarone and an amiodarone infusion restarted. Patient currently is on normal sinus rhythm. Patient will be started on Furosemide infusion today with hopes for medically extubating patient on 09/12. Chest x-ray today revealing interval improvement in consolidative opacity in the left lung base with focal consolidation remaining in the left perihilar region. Moistened diffuse opacity remains in the right lung. Laboratory workup today revealing potassium 3.9, BUN/creatinine 40/0.97, random glucose 111 , phosphorus 3.9, magnesium 2.1 Cardiology and infectious disease following. Case discussed with bedside RN Bossman. . Family/friend interactions No family at bedside. . Advance Directives Health Care Surrogate: Copy in medical record Advance Directive Specifics Date completed: [facility] -April 08, 2017 . Health Care Surrogate(s): HCS- (Long time friend-15 yrs) Kay Rizvi [phone]- (July 2017) Alternate [facility]- Cousin- Dahiana Mayorga [phone] (will serve as HCS) . Objective Vital Signs Date Time Temp Pulse Resp B/P (MAP) Pulse Ox O2 Delivery O2 Flow Rate FiO2 09/10/17 13:00 40 09/10/17 13:00 40 09/10/17 12:00 77 09/10/17 12:00 98.9 77 16 145/85 (105) 98 09/10/17 11:10 100 40 09/10/17 10:00 84 09/10/17 08:47 147 117/71 09/10/17 08:46 147 117/71 09/10/17 08:23 97 50 09/10/17 08:00 150 09/10/17 08:00 98 Mechanical Ventilator 09/10/17 08:00 98.9 150 16 117/71 (86) 98 09/10/17 08:00 45 09/10/17 06:00 92 09/10/17 04:04 94 55 09/10/17 04:00 45 09/10/17 04:00 90 09/10/17 04:00 98.0 90 16 167/94 (118) 92 09/10/17 02:00 92 09/10/17 00:00 45 09/10/17 00:00 98.0 80 16 147/70 (95) 98 09/10/17 00:00 80 09/09/17 23:53 94 55 09/09/17 22:00 85 09/09/17 20:00 45 09/09/17 20:00 98.3 86 16 166/92 (116) 97 09/09/17 20:00 86 09/09/17 19:42 94 55 09/09/17 19:00 95 Mechanical Ventilator 09/09/17 18:00 81 09/09/17 16:00 80 09/09/17 16:00 97.9 80 142/77 (98) 95 09/09/17 16:00 45 09/09/17 15:25 94 50 Intake & Output 09/10/17 09/10/17 07:00 19:00 Intake Total 1830 ml 100 ml Output Total 2000 ml Balance -170 ml 100 ml Intake IV Total 800 ml 100 ml Tube Feeding 630 ml Other 400 ml Output Urine Total 2000 ml # Bowel Movements 1 Physical Exam CONSTITUTIONAL/GENERAL: This is a chronically ill patient, intubated, likely sedated in respiratory distress TUBES/LINES/DRAINS: ETT, NGT, PIV, SCDs, Dockery catheter, bilateral upper extremity soft restraints SKIN: No jaundice, rashes, or lesions. Ecchymoses on upper extremities. Skin tears to bilateral upper extremities. HEAD: Atraumatic. Normocephalic. EYES: Pupils 2 mm, questionable reaction, sedated.No scleral icterus. No injection or drainage. Fundi not examined. ENT: Intubated. Nose without bleeding or purulent drainage. Moist oral mucosa CARDIOVASCULAR: S1-S2 normal, NSR. No murmurs, no JVD. 2+Edema to BUE and 1+ BLE RESPIRATORY/CHEST: Symmetric, unlabored respirations. Rhonchi/rales to auscultation. Diminished in the bases. No wheezes. GASTROINTESTINAL: Abdomen soft, non-tender, nondistended. Bowel sounds present. TF infusing via NGT GENITOURINARY: Without palpable bladder distension. Dockery catheter in place. MUSCULOSKELETAL: Extremities without clubbing, cyanosis. Edema to all four extremities. No mottling or clubbing. NEUROLOGICAL: Intubated, lightly sedated on mechanical ventilation, spontaneously moving all 4 extremities. PSYCHIATRIC: Unable to assess at this time. . Diagnostic Tests Laboratory Laboratory Tests Test 09/07/17 20:01 09/08/17 06:08 09/09/17 09:12 09/09/17 11:29 Activated Partial Thromboplast Time 47.1 SEC (24.3-30.1) 46.8 SEC (24.3-30.1) 52.7 SEC (24.3-30.1) White Blood Count 16.6 TH/MM3 (4.0-11.0) 13.0 TH/MM3 (4.0-11.0) Red Blood Count 3.24 MIL/MM3 (4.50-5.90) 2.79 MIL/MM3 (4.50-5.90) Hemoglobin 9.4 GM/DL (13.0-17.0) 8.2 GM/DL (13.0-17.0) Hematocrit 29.5 % (39.0-51.0) 25.2 % (39.0-51.0) Mean Corpuscular Volume 91.2 FL (80.0-100.0) 90.4 FL (80.0-100.0) Mean Corpuscular Hemoglobin 29.0 PG (27.0-34.0) 29.3 PG (27.0-34.0) Mean Corpuscular Hemoglobin Concent 31.7 % (32.0-36.0) 32.5 % (32.0-36.0) Red Cell Distribution Width 19.5 % (11.6-17.2) 19.6 % (11.6-17.2) Platelet Count 270 TH/MM3 (150-450) 184 TH/MM3 (150-450) Mean Platelet Volume 8.2 FL (7.0-11.0) 8.4 FL (7.0-11.0) Neutrophils (%) (Auto) 92.0 % (16.0-70.0) Lymphocytes (%) (Auto) 1.4 % (9.0-44.0) Monocytes (%) (Auto) 6.4 % (0.0-8.0) Eosinophils (%) (Auto) 0.0 % (0.0-4.0) Basophils (%) (Auto) 0.2 % (0.0-2.0) Neutrophils # (Auto) 15.3 TH/MM3 (1.8-7.7) Lymphocytes # (Auto) 0.2 TH/MM3 (1.0-4.8) Monocytes # (Auto) 1.1 TH/MM3 (0-0.9) Eosinophils # (Auto) 0.0 TH/MM3 (0-0.4) Basophils # (Auto) 0.0 TH/MM3 (0-0.2) CBC Comment AUTO DIFF Differential Total Cells Counted 100 Neutrophils % (Manual) 87 % (16-70) Band Neutrophils % 2 % (0-6) Lymphocytes % 1 % (9-44) Monocytes % 2 % (0-8) Neutrophils # (Manual) 16.1 TH/MM3 (1.8-7.7) Metamyelocytes 3 % (0-1) Myelocytes 4 % (0-0) Promyelocytes 1 % (0-0) Differential Comment FINAL DIFF MANUAL Platelet Estimate NORMAL (NORMAL) Platelet Morphology Comment NORMAL (NORMAL) Basophilic Stippling FAINT (NORMAL) Ovalocytes 1+ (NORMAL) Blood Urea Nitrogen 39 MG/DL (7-18) 44 MG/DL (7-18) Creatinine 1.00 MG/DL (0.60-1.30) 1.01 MG/DL (0.60-1.30) Random Glucose 173 MG/DL (74-106) 159 MG/DL (74-106) Total Protein 5.7 GM/DL (6.4-8.2) 5.4 GM/DL (6.4-8.2) Albumin 2.3 GM/DL (3.4-5.0) 2.1 GM/DL (3.4-5.0) Calcium Level 7.9 MG/DL (8.5-10.1) 7.9 MG/DL (8.5-10.1) Phosphorus Level 4.5 MG/DL (2.5-4.9) 4.1 MG/DL (2.5-4.9) Magnesium Level 2.3 MG/DL (1.5-2.5) 2.2 MG/DL (1.5-2.5) Alkaline Phosphatase 78 U/L (45-117) 65 U/L (45-117) Aspartate Amino Transf (AST/SGOT) 28 U/L (15-37) 19 U/L (15-37) Alanine Aminotransferase (ALT/SGPT) 58 U/L (12-78) 41 U/L (12-78) Total Bilirubin 0.4 MG/DL (0.2-1.0) 0.4 MG/DL (0.2-1.0) Sodium Level 146 MEQ/L (136-145) 146 MEQ/L (136-145) Potassium Level 4.4 MEQ/L (3.5-5.1) 4.3 MEQ/L (3.5-5.1) Chloride Level 107 MEQ/L (98-107) 108 MEQ/L (98-107) Carbon Dioxide Level 30.8 MEQ/L (21.0-32.0) 30.8 MEQ/L (21.0-32.0) Anion Gap 8 MEQ/L (5-15) 7 MEQ/L (5-15) Estimat Glomerular Filtration Rate 76 ML/MIN (>89) 75 ML/MIN (>89) Troponin I 0.83 NG/ML (0.02-0.05) Triglycerides Level 178 MG/DL (42-150) Cholesterol Level 174 MG/DL (120-200) LDL Cholesterol 102 MG/DL (0-99) HDL Cholesterol 36.8 MG/DL (40.0-60.0) Cholesterol/HDL Ratio 4.72 RATIO Test 09/09/17 16:38 09/10/17 05:12 09/10/17 13:38 Blood Urea Nitrogen 43 MG/DL (7-18) 40 MG/DL (7-18) 37 MG/DL (7-18) Creatinine 0.95 MG/DL (0.60-1.30) 0.97 MG/DL (0.60-1.30) 1.07 MG/DL (0.60-1.30) Random Glucose 106 MG/DL (74-106) 111 MG/DL (74-106) 176 MG/DL (74-106) Calcium Level 8.3 MG/DL (8.5-10.1) 8.2 MG/DL (8.5-10.1) 8.3 MG/DL (8.5-10.1) Magnesium Level 2.2 MG/DL (1.5-2.5) 2.1 MG/DL (1.5-2.5) 2.1 MG/DL (1.5-2.5) Sodium Level 146 MEQ/L (136-145) 145 MEQ/L (136-145) 143 MEQ/L (136-145) Potassium Level 4.0 MEQ/L (3.5-5.1) 3.9 MEQ/L (3.5-5.1) 4.1 MEQ/L (3.5-5.1) Chloride Level 105 MEQ/L (98-107) 106 MEQ/L (98-107) 103 MEQ/L (98-107) Carbon Dioxide Level 30.4 MEQ/L (21.0-32.0) 29.4 MEQ/L (21.0-32.0) 30.3 MEQ/L (21.0-32.0) Anion Gap 11 MEQ/L (5-15) 10 MEQ/L (5-15) 10 MEQ/L (5-15) Estimat Glomerular Filtration Rate 80 ML/MIN (>89) 78 ML/MIN (>89) 70 ML/MIN (>89) Activated Partial Thromboplast Time 35.4 SEC (24.3-30.1) 40.8 SEC (24.3-30.1) Total Protein 5.4 GM/DL (6.4-8.2) Albumin 2.3 GM/DL (3.4-5.0) Phosphorus Level 3.9 MG/DL (2.5-4.9) 4.3 MG/DL (2.5-4.9) Alkaline Phosphatase 84 U/L (45-117) Aspartate Amino Transf (AST/SGOT) 23 U/L (15-37) Alanine Aminotransferase (ALT/SGPT) 36 U/L (12-78) Total Bilirubin 0.4 MG/DL (0.2-1.0) Result Diagram: 09/09/17 0912 09/10/17 1338 Imaging Last 24 hours Impressions Chest X-Ray 09/10/17 0600 Signed Impressions: Service Date/Time: September 03:12 - CONCLUSION: 1. Interval improvement in consolidative opacity in the left lung base with focal consolidation remaining in the left perihilar region. 2. More hazy diffuse opacity remains in the right lung. Willy Pantoja MD Procedures 08/29/17-intubation 08/31/17-self extubation 08/31/17-reintubated . Assessment and Plan Disease Oriented Problem List: (1) Acute respiratory failure with hypoxia and hypercarbia (2) Lung cancer (3) Atrial fibrillation with RVR (4) Lung consolidation (5) COPD (chronic obstructive pulmonary disease) Symptom Scale: (1) Shortness of breath Comment: Hx of lung cancer. CT angiography revealed multilobar consolidation and no evidence for pulmonary embolism, extensive coronary calcifications. . (2) Pain Comment: Risk for pain-from procedure (intubation), bedbound status. . (3) Debility 0-10 Scale: Unable to quantify Comment: Progressive . Pertinent Non-Medical Issues Psychosocial:Patient was born and raised in [place]. He left [place] at the age of 20. Patient moved to [place] in [place]. Patient has a 2 years college degree in [employer] technology. 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 Patient was and twice. He never had children. Spiritual:N shinto affiliation Legal:Patient has a [facility] form signed and completed a Community DNR Ethical issues impacting care:None identified at this time . Important Contacts Alternate [facility]- Cousin- Dahiana Mayorga [phone] Friend-Nemo [phone] [facility]- (Long time friend-15 yrs) Kay Rizvi [phone]- . Prognosis Mr Adams is a 61 years old male with a past medical history significant of lung cancer s/p radiation, COPD, hypertension, coronary artery disease and tobacco use. Patient presented to the ER via EMS on 08/29/17 complaining of shortness of breath that had started the night before, generalized malaise and weakness. Clinical course complicated with atrial fibrillation with RVR, and acute hypoxic and hypercapnic respiratory failure. Given ongoing comorbidities , patient remains at high risk for further complications, deterioration and decline. . Code Status: Full Code Plan PLAN: Legal decision maker: Patient is currently intubated, sedated on mechanical ventilation and is not able to participate in decision-making. Patient`s cousin Dahiana Mayorga whom he has designated as his alternate healthcare surrogate will make medical decisions for patient. Goals: Remain Aggressive CODE STATUS: Full code Per previous conversation 09/09 with patient's healthcare surrogate Dahiana, goals remain aggressive. She hopes that code status will be readdressed with patient when he is medically extubated. SYMPTOMS: * Shortness of breath: Patient has history of lung cancer, COPD and tobacco use. Patient presented with shortness of breath. Intubated 08/29, self extubated 08/31, reintubated 08/31 secondary to respiratory failure. Worsening chest x-ray today. Solu-Medrol and duo nebs prn. Lasted 2 hours on CPAP trials today. * Pain: Patient is at risk for pain, required intubation in the ER. Currently bedbound. Fentanyl infusion at 100mcg/hr. No signs of pain noted. No recommendations at this time. * Debility: Progressive: Hx of lung cancer s/p radiation. Multiple hospitalizations. Physical therapy following recommending physical therapy at rehab, . Palliative care will continue to follow the patient during hospital course as condition evolves, to assist patient/decision-maker with understanding of their medical conditions, weighing benefits/burdens of treatment options, for clarification of goals of treatment. Additionally will assist with any symptoms of palliative concern Attestation To help prompt me to consider important information that might be impacting today's encounter and assessment, information from prior notes written by myself or my colleagues may have been "brought forward" into today's note. My signature on this note, however, is an attestation that I personally performed the exam, history, and/or decision-making noted today, and, unless otherwise indicated, the interactions with patient, family, and staff as well as the review of records all occurred today. I also attest that the listed assessment and stated plan reflect my best clinical judgment today based on the combination of historical information, prior notes, and today's exam/ interactions. When time spent is documented, it refers only to time spent today by the signer, or if indicated, combined time spent today by collaborating physician/nurse practitioner. Randa Tenorio September 10, 2017 15:19
--- NOTE | 2017-09-10 15:39 | HHI.IDPN ---
Note Infectious Disease Note Patient on the vent. Was on CPAP for 2 hours today. Went into A. fib earlier. Awake with eyes open. No distress. Afebrile. Presented to the emergency department on 08/29 with respiratory symptoms. Intubated in the ED. PAST MEDICAL HISTORY: Left lung cancer, being treated with chemotherapy and radiation, coronary artery disease, peripheral arterial disease, COPD, hypertension, anxiety, depression, bilateral cataract surgery, recent pneumonia due to Pseudomonas in 04/2017 and 07/2017, history of iliac artery bypass surgery. ALLERGIES: NO KNOWN DRUG ALLERGIES. Antibiotics: Piperacillin/tazobactam. Levaquin. Objective: Vital Signs Date Time Temp Pulse Resp B/P (MAP) Pulse Ox O2 Delivery O2 Flow Rate FiO2 09/10/17 14:59 93 50 09/10/17 13:00 40 09/10/17 13:00 40 09/10/17 12:00 77 09/10/17 12:00 98.9 77 16 145/85 (105) 98 09/10/17 11:10 100 40 09/10/17 10:00 84 09/10/17 08:47 147 117/71 09/10/17 08:46 147 117/71 09/10/17 08:23 97 50 09/10/17 08:00 150 09/10/17 08:00 98 Mechanical Ventilator 09/10/17 08:00 98.9 150 16 117/71 (86) 98 09/10/17 08:00 45 09/10/17 06:00 92 09/10/17 04:04 94 55 09/10/17 04:00 45 09/10/17 04:00 90 09/10/17 04:00 98.0 90 16 167/94 (118) 92 09/10/17 02:00 92 09/10/17 00:00 45 09/10/17 00:00 98.0 80 16 147/70 (95) 98 09/10/17 00:00 80 09/09/17 23:53 94 55 09/09/17 22:00 85 09/09/17 20:00 45 09/09/17 20:00 98.3 86 16 166/92 (116) 97 09/09/17 20:00 86 09/09/17 19:42 94 55 09/09/17 19:00 95 Mechanical Ventilator 09/09/17 18:00 81 09/09/17 16:00 80 09/09/17 16:00 97.9 80 142/77 (98) 95 09/09/17 16:00 45 Laboratory Tests Test 09/09/17 09:12 White Blood Count 13.0 TH/MM3 Red Blood Count 2.79 MIL/MM3 Hemoglobin 8.2 GM/DL Hematocrit 25.2 % Mean Corpuscular Volume 90.4 FL Mean Corpuscular Hemoglobin 29.3 PG Mean Corpuscular Hemoglobin Concent 32.5 % Red Cell Distribution Width 19.6 % Platelet Count 184 TH/MM3 Mean Platelet Volume 8.4 FL Laboratory Tests Test 09/09/17 11:29 09/09/17 16:38 09/10/17 05:12 09/10/17 13:38 Blood Urea Nitrogen 44 MG/DL 43 MG/DL 40 MG/DL 37 MG/DL Creatinine 1.01 MG/DL 0.95 MG/DL 0.97 MG/DL 1.07 MG/DL Random Glucose 159 MG/DL 106 MG/DL 111 MG/DL 176 MG/DL Total Protein 5.4 GM/DL 5.4 GM/DL Albumin 2.1 GM/DL 2.3 GM/DL Calcium Level 7.9 MG/DL 8.3 MG/DL 8.2 MG/DL 8.3 MG/DL Phosphorus Level 4.1 MG/DL 3.9 MG/DL 4.3 MG/DL Magnesium Level 2.2 MG/DL 2.2 MG/DL 2.1 MG/DL 2.1 MG/DL Alkaline Phosphatase 65 U/L 84 U/L Aspartate Amino Transf (AST/SGOT) 19 U/L 23 U/L Alanine Aminotransferase (ALT/SGPT) 41 U/L 36 U/L Total Bilirubin 0.4 MG/DL 0.4 MG/DL Sodium Level 146 MEQ/L 146 MEQ/L 145 MEQ/L 143 MEQ/L Potassium Level 4.3 MEQ/L 4.0 MEQ/L 3.9 MEQ/L 4.1 MEQ/L Chloride Level 108 MEQ/L 105 MEQ/L 106 MEQ/L 103 MEQ/L Carbon Dioxide Level 30.8 MEQ/L 30.4 MEQ/L 29.4 MEQ/L 30.3 MEQ/L Anion Gap 7 MEQ/L 11 MEQ/L 10 MEQ/L 10 MEQ/L Estimat Glomerular Filtration Rate 75 ML/MIN 80 ML/MIN 78 ML/MIN 70 ML/MIN IMAGING: Chest X-Ray 09/10/17 0600 Signed Impressions: Service Date/Time: September 03:12 - CONCLUSION: 1. Interval improvement in consolidative opacity in the left lung base with focal consolidation remaining in the left perihilar region. 2. More hazy diffuse opacity remains in the right lung. Willy Pantoja MD Chest X-Ray 09/08/17 0600 Signed Impressions: Service Date/Time: Friday, September 08, 2017 04:07 - CONCLUSION: Stable appearance to the chest. Persistent consolidation left lower lobe. Luis Castro MD Chest X-Ray 09/07/17 0600 Signed Impressions: Service Date/Time: Thursday, September 07, 2017 04:21 - CONCLUSION: Increasing consolidation left lower lobe a combination of airspace disease and pleural effusion. Luis Castro MD Chest X-Ray 09/06/17 0600 Signed Impressions: Service Date/Time: Wednesday, September 06, 2017 03:03 - CONCLUSION: Improving aeration Dmitri Mohan MD Chest X-Ray 09/02/17 0000 Signed Impressions: Service Date/Time: Saturday, September 02, 2017 06:32 - CONCLUSION: Bilateral airspace disease with interval worsening in the left base. Possible developing left-sided effusion. Jaret Crouch MD Abdomen X-Ray 08/31/17 0000 Signed Impressions: Service Date/Time: Thursday, August 31, 2017 20:34 - CONCLUSION: 1. Nasogastric tube tip in distal stomach. David Jay MD CT Angiography 08/29/17 1849 Signed Impressions: Service Date/Time: Tuesday, August 29, 2017 19:36 - CONCLUSION: 1. Multilobar consolidation. 2. No evidence for pulmonary embolism. 3. Extensive coronary calcifications Pk Bae MD PHYSICAL EXAMINATION: GENERAL: On the ventilator. HEENT: Pupils reactive to light. No icterus. Moist oral mucosa. NECK: No swelling. No adenopathy. LUNGS: Very good air movement. Slight rhonchi at the bases. HEART: Regular rate and rhythm. Slight systolic murmur at the left sternal border. ABDOMEN: Bowel sounds present, soft. EXTREMITIES: Ecchymosis and edema at both upper extremities. No clubbing or cyanosis. SKIN: No diffuse rash. NEUROLOGIC: Unable to assess. PSYCHIATRIC: Unable to assess. IMPRESSION: 1. Bilateral pneumonia due to Pseudomonas. Chest x-ray shows improvement in left lung infiltrate. 2. Acute respiratory failure. 3. History of lung cancer. RECOMMENDATIONS: 1. Continue piperacillin/tazobactam. 2. Continue Levaquin. 3. Continue to monitor clinical status. Herve Zarate MD September 10, 2017 15:39
[2017-09-10] MEDS: LEVOFLOXACIN 250 MG PREMIX INJ 50 ML IV SCH (15:47)
[2017-09-10] MEDS: FUROSEMIDE INJ 100 MG in SODIUM CHLORIDE 0.9% INJ 90 ML IV SCH (16:11)
[2017-09-10] MEDS: ALBUMIN 25% INJ 100 ML IV SCH (18:54)
[2017-09-10] MEDS: SODIUM CHLORIDE 0.9% FLUSH 10 ML FLUSH IVF PRN ×2 (20:28)
[2017-09-10 22:24] LABS: BICARBONATE 30.7 MEQ/L (21.0-32.0); CALCIUM 7.9 MG/DL (8.5-10.1); CREATININE 1.15 MG/DL (0.60-1.30)
[2017-09-10 22:27] LABS: PHOSPHORUS 4.3 MG/DL (2.5-4.9)
[2017-09-11] VITALS (33 sets, daily range): BP systolic 109–164; BP diastolic 66–91; PULSE 57–124; RESP 18; TEMP 97.6–99.4; O2SAT 88–100
[2017-09-11] MEDS: PROPOFOL 1000 MG/100 ML INJ 100 ML IV PRN ×4 (02:04→23:54)
[2017-09-11] MEDS: PIPERACIL-TAZO 4.5 GM PREMIX 100 ML IV SCH ×4 (02:05→19:27)
[2017-09-11] MEDS: DILTIAZEM HCL 90 MG TAB PO SCH ×4 (02:05→20:51)
[2017-09-11] MEDS: CHLORHEXIDINE GLUCONATE 2 % 1 PACK (2 CLOTHS) TOP SCH (04:00)
[2017-09-11 04:44] LABS: CALCIUM 7.5 MG/DL (8.5-10.1); CREATININE 1.14 MG/DL (0.60-1.30); MAGNESIUM 1.9 MG/DL (1.5-2.5)
[2017-09-11 04:46] LABS: PHOSPHORUS 3.8 MG/DL (2.5-4.9)
[2017-09-11] MEDS: ARTIFICIAL TEARS OPTH SOLN 15 ML BTL EACH EYE SCH ×3 (05:26→20:51)
[2017-09-11] MEDS: hydrALAZINE HCL 25 MG TAB PO SCH ×3 (05:26→20:51)
[2017-09-11] MEDS: INSULIN NovoLIN REGULAR SUPPLEMENTAL SCALE SQ SCH ×4 (05:26→17:38)
[2017-09-11] MEDS: FREE WATER NG SCH ×4 (05:26→17:40)
[2017-09-11] MEDS: ISOSORBIDE DINITRATE 10 MG TAB PO SCH ×3 (05:26→20:51)
[2017-09-11] MEDS: ALBUMIN 25% INJ 100 ML IV SCH ×2 (05:26→17:38)
[2017-09-11] MEDS: POTASSIUM CHLOR 20 MEQ PREMIX 100 ML IV PRN ×2 (06:43→10:17)
[2017-09-11] MEDS: FUROSEMIDE INJ 100 MG in SODIUM CHLORIDE 0.9% INJ 90 ML IV SCH (06:43)
[2017-09-11] MEDS: PRAVASTATIN SOD 10 MG TAB PO SCH (08:03)
[2017-09-11] MEDS: methylPREDNISolone SOD SUCC 40 MG/1 ML VIAL IV PUSH SCH (08:03)
[2017-09-11] MEDS: CHLORHEXIDINE 0.12% (ORAL KIT) 15 ML CUP MT SCH ×2 (08:03→19:27)
[2017-09-11] MEDS: ASPIRIN 81 MG CHEW TAB CHEW SCH (08:03)
[2017-09-11] MEDS: LANSOPRAZOLE SOLUTAB 30 MG TAB NG SCH (08:04)
[2017-09-11] MEDS: CLOPIDOGREL 75 MG TAB PO SCH (08:04)
[2017-09-11] MEDS: METOPROLOL TARTRATE 50 MG TAB PO SCH ×2 (08:04→20:50)
[2017-09-11 08:43] LABS: AUTOMATED NEUTROPHIL # 10.1 TH/MM3 (1.8-7.7); BASOPHIL % 0.2 % (0.0-2.0); LYMPH % 2.6 % (9.0-44.0); LYMPHOCYTE # 0.3 TH/MM3 (1.0-4.8); MEAN CELL VOLUME 89.3 FL (80.0-100.0); MEAN CORPUSCULAR HEMOGLOBIN 29.2 PG (27.0-34.0); MEAN CORPUSCULAR HGB CONC 32.7 % (32.0-36.0); MEAN PLATELET VOLUME 8.7 FL (7.0-11.0); MONO % 10.6 % (0.0-8.0); MONOCYTE # 1.2 TH/MM3 (0-0.9); NEUT % 86.6 % (16.0-70.0); PLATELET COUNT 130 TH/MM3 (150-450); RED BLOOD COUNT 2.15 MIL/MM3 (4.50-5.90); RED CELL DISTRIBUTION WIDTH 18.9 % (11.6-17.2); WHITE BLOOD COUNT 11.7 TH/MM3 (4.0-11.0)
[2017-09-11 08:46] LABS: HEMATOCRIT 19.1 % (39.0-51.0); HEMOGLOBIN 6.3 GM/DL (13.0-17.0)
--- NOTE | 2017-09-11 08:46 | HHI.CCPN ---
Subjective Remarks/Hospital Course 08/29: This is a 61-year-old male with a history of lung cancer undergoing current chemotherapy and radiation who was recently admitted on 07/19 for aspiration pneumonia. During that admission he did have episodes of paroxysmal atrial fibrillation and had an echo from 04/2017 showing an EF of 50-55%. He represents today to the emergency department with acute shortness of breath since last night. Per the ER documentation, he denies any coughing, fever, chills, or other recent symptoms or changes other than the new dyspnea. In the emergency department he was found to be in A. fib with RVR. This initially converted to sinus rhythm 1 after diltiazem 20 mg IV bolus, but then very quickly went back into atrial for ablation with rapid ventricular response. 2 doses of adenosine were not able to convert it. The patient was loaded with amiodarone and infusion was started. After this, the patient become acutely hypoxemic requiring emergent intubation. Please refer to the emergency room physician documentation for additional details regarding the decompensation. When I came to evaluate patient, the patient was recently intubated, sedated. No additional information is available from the patient due to his clinical condition. Review of systems is unobtainable. Critical care medicine is consulted to evaluate manage his acute hypoxic respiratory failure along with his acute supraventricular tachycardia. 08/30: Patient remains intubated and sedated. FiO2 down to 0.5. Patient continues to be on amiodarone infusion and heparin drip. Sedation achieved with propofol and fentanyl. Patient remains hypothermic requiring Gracia hugger, urine output 350 mL's documented since admission. 08/31: No events over the night. Patient remains intubated and sedated. Hemoglobin more stable posttransfusion. Hypothermia resolved, T-max of 100.3. Urine output remains low, 635 mL's over the last 24 hours. Oxygenation is improved. No family present at bedside. Patient remains in sinus rhythm, on amiodarone infusion. No report of melena, hematochezia or coffee-ground aspirate from NG tube. Morning chest x-ray reviewed, worsening infiltrates over the right thorax, unchanged consolidation over the left. 09/01: Afebrile. Patient was extubated yesterday afternoon and emergently intubated 1030 last night secondary to hypoxemic respiratory failure. This x- ray pending this a.m.. The patient also was noted to have severe metabolic acidosis and sodium bicarbonate infusion was initiated. Patient noted to have Pseudomonas, and placed on Zosyn. Patient continues to have leukocytosis with worsening pneumonia ID has been consulted appreciate recommendations. Patient previously DNR palliative has been consulted up on hypoxemic respiratory failure patient was noted to request intubation at that time. Palliative care consult pending. Patient continues on amiodarone infusion now in sinus rhythm. Amiodarone infusion discontinued the patient continued on metoprolol and Cardizem home medications. Hemoglobin appears stable status post 2 units transfusion 48 hours ago. Will do serial H&H's aspirin reinitiated will hold Plavix for now, and continue to follow. Subcu heparin initiated. 09/02: Afebrile. Hemoglobin stable for the last 24 hours. Plan to restart tube feeds this a.m.. Metabolic acidosis resolved, patient's sodium bicarbonate discontinued. Patient requiring increasing FiO2 requirements during the night , now at 100% ABG pending. This am chest x-ray worsening. 09/03: Late entry note patient seen at 8:15 AM .afebrile. Chest x-ray continues to worsen. FiO2 requirement slightly decreased we will attempt CPAP trials today. 09/04: Afebrile. patient awake and following commands this a.m. Currently on CPAP trials. FiO2 weaned to 45% 09/05: Afebrile. Patient tolerating CPAP trials. She noted to have elevated blood glucose level secondary methylprednisolone. Chest x-ray now improving methylprednisolone taper initiated. Patient noted to still have episodes of hypertension Cardizem increased to 90 mg every 6 hours. 09/06: Patient currently in a flutter. Received adenosine 12 mg 1 which feels a flutter. Echocardiogram CPK and troponin ordered. TSH normal during this hospitalization. Potassium magnesium both normalized. Arousable and follows commands. Subjective 09/07: Patient is currently on PSV trial 20/8 ~35%. Patient oscillating on CODE STATUS. Tolerating tube feeds. Remains in normal sinus rhythm on amiodarone drip. 09/08: No events over the night. CPAP trial was attempted this morning patient went into A. fib with RVR after 15 minutes. Patient was switched back to full support, and converted to sinus rhythm. He continues to be on amiodarone infusion and heparin drip. He is lethargic but easily arousable able to follow some commands. FiO2 at 0.5 and PEEP at 8. T-max of 99. 5/9: No events over the night. T-max of 98.9. Patient remains intubated and sedated, on propofol and fentanyl. CPAP trial attempted this morning again and patient went into A. fib with RVR and hypoxia, therefore he was placed back on PRVC. No family present at bedside. Urine output of 2350 mL over the last 24 hours. He is +22 L since admission charting is correct. 09/10: No events over the night. This morning patient is in A. fib with RVR heart rate 150, hemodynamically stable. Patient had excellent response to diuresis, urine output greater than 4 L over the last 24 hours. T-max of 98.5. No family present at bedside. Morning chest x-ray reviewed. 09/11: Patient did well over the night. He remains in sinus rhythm on amiodarone infusion. Patient was started on Lasix drip yesterday with great urine output. Patient is negative approximately 2.5 L over the last 24 hours. Afebrile, with Tmax of 99.9. Oxygenation down to 40%. Objective Vital Signs Date Time Temp Pulse Resp B/P (MAP) Pulse Ox O2 Delivery O2 Flow Rate FiO2 09/11/17 08:19 88 40 09/11/17 06:00 78 09/11/17 04:00 139/74 (95) 09/11/17 00:00 98.0 09/10/17 19:00 Mechanical Ventilator 09/10/17 12:00 16 Intake and Output 09/11/17 09/11/17 09/11/17 07:59 15:59 23:59 Intake Total 1823.6 ml Output Total 1550 ml Balance 273.6 ml Result Diagram: 09/09/17 0912 09/11/17 0411 Other Results No new culture data Imaging Last 24 hours Impressions Chest X-Ray 09/10/17 0600 Signed Impressions: Service Date/Time: September 03:12 - CONCLUSION: 1. Interval improvement in consolidative opacity in the left lung base with focal consolidation remaining in the left perihilar region. 2. More hazy diffuse opacity remains in the right lung. Willy Pantoja MD Last 24 hours Impressions Chest X-Ray 09/08/17 0600 Signed Impressions: Service Date/Time: Friday, September 08, 2017 04:07 - CONCLUSION: Stable appearance to the chest. Persistent consolidation left lower lobe. Luis Castro MD Last Impressions Chest X-Ray 09/07/17 0600 Signed Impressions: Service Date/Time: Thursday, September 07, 2017 04:21 - CONCLUSION: Increasing consolidation left lower lobe a combination of airspace disease and pleural effusion. Luis Castro MD Abdomen X-Ray 08/31/17 0000 Signed Impressions: Service Date/Time: Thursday, August 31, 2017 20:34 - CONCLUSION: 1. Nasogastric tube tip in distal stomach. David Jay MD CT Angiography 08/29/17 1849 Signed Impressions: Service Date/Time: Tuesday, August 29, 2017 19:36 - CONCLUSION: 1. Multilobar consolidation. 2. No evidence for pulmonary embolism. 3. Extensive coronary calcifications Pk Bae MD Objective Remarks General - elderly gentleman, intubated, sedated, arousable, ill-appearing HEENT - pupils are equal, reactive, sclerae are anicteric, neck is supple, no rigidity, no JVD, orally intubated, + NGT CV - regular S1 and S2, no murmurs Chest - coarse breath sounds b/l, good air entry, no wheezes Abdomen - remains soft, not distended, non-tender, BS present Extremities - 2+ edema over both lower extremities, improved, and 3+ edema over upper extremities, improved, + peripheral pulses, warm and well-perfused Neuro - pupils are equal and reactive, opens eyes to voice stimuli, follows some commands, moves all extremities but he remains weak A/P Problem List: (1) OBED (acute kidney injury) ICD Code: N17.9 - Acute kidney failure, unspecified (2) Severe protein-calorie malnutrition ICD Code: E43 - Unspecified severe protein-calorie malnutrition Status: Chronic (3) Shortness of breath ICD Code: R06.02 - Shortness of breath Status: Acute (4) Tobacco abuse ICD Code: Z72.0 - Tobacco use Status: Chronic (5) Paroxysmal A-fib ICD Code: I48.0 - Paroxysmal atrial fibrillation Status: Chronic (6) Atrial fibrillation with RVR ICD Code: I48.91 - Unspecified atrial fibrillation Status: Resolved (7) PNA (pneumonia) ICD Code: J18.9 - Pneumonia, unspecified organism (8) COPD (chronic obstructive pulmonary disease) ICD Code: J44.9 - Chronic obstructive pulmonary disease, unspecified (9) Lung cancer ICD Code: C34.90 - Malignant neoplasm of unspecified part of unspecified bronchus or lung (10) Debility ICD Code: R53.81 - Other malaise Status: Chronic (11) Pain ICD Code: R52 - Pain, unspecified Status: Chronic (12) Lung consolidation ICD Code: J18.1 - Lobar pneumonia, unspecified organism Status: Acute (13) Acute respiratory failure with hypoxia and hypercarbia ICD Code: J96.01 - Acute respiratory failure with hypoxia; J96.02 - Acute respiratory failure with hypercapnia Assessment and Plan 1. Acute hypoxic and hypercapnic respiratory failure -very slowly improving 2. Pseudomonas pneumonia -patient remains afebrile 3. Acute COPD exacerbation -resolved 4. Lung cancer currently undergoing radiation therapy and chemotherapy prior to hospitalization 5. Atrial fibrillation with rapid ventricular response -multiple recurrences during the admission, currently in sinus rhythm on amiodarone infusion 6. Elevated troponin - trending down 7. Acute blood loss anemia -reoccurred, this morning's hemoglobin at 6.3. No clear evidence of bleed, no melena no hematemesis no hematochezia 8. OBED -resolved 9. Volume overload -patient more than 22 L positive since admission if charting is correct, with great response to diuresis, improved 1. Continue PRVC, patient is synchronized with the vent, no auto PEEP, PIP is 27. FiO2 down to 0.4. Slowly taper PEEP from 8 to 6 as tolerated 2. Vent bundle and bronchodilators 3. Taper steroids 4. Albumin 3 doses 5. Continue Lasix drip 6. Continue amiodarone infusion, appreciate cardiology consult 7. Hold heparin, aspirin and Plavix. Transfuse 2 units PRBC 8. Metoprolol tartrate 50 mg twice daily. Cardizem increased to 90 mg 4 times daily. Home medication is 240 mg daily 9. Holding lisinopril 5 mg daily medication. Add isosorbide mononitrate 10 mg 3 times daily and hydralazine 25 mg 3 times daily 10. On statin, aspirin and clopidogrel 11. On Zosyn and levofloxacin, followed by ID 12. Continue tube feeds, currently at goal 13. GI prophylaxis 14. DVT prophylaxis -on heparin drip 15. Replete electrolytes per protocol No family present at bedside. Level 2 follow-up Problem Qualifiers (1) PNA (pneumonia): Qualified Codes: J18.1 - Lobar pneumonia, unspecified organism Sunny Herrera MD September 11, 2017 08:45
[2017-09-11] MEDS: DOCUSATE SODIUM 50 MG/SENNA 8.6 MG TAB PO SCH ×2 (09:00→20:51)
[2017-09-11] MEDS: LACTULOSE SYRUP 20 GM/30 ML CUP PO SCH (09:00)
[2017-09-11] MEDS: AMIODARONE 200 MG TAB NG SCH ×2 (09:00→20:56)
[2017-09-11] MEDS ORDERED: SODIUM CHLOR 0.9% 250 ML INJ 250 ML IV ONE (09:15)
[2017-09-11] MEDS: AMIODARONE INJ 450 MG in SODIUM CHLOR 0.9% (EXCEL) INJ 241 ML IV PRN ×2 (09:16→23:56)
[2017-09-11 09:17] LABS: BANDS 12 % (0-6); CORRECTED NUCLEATED RBC 1 /100 WBC (0-0); LYMPHOCYTES 3 % (9-44); METAMYELOCYTES 1 % (0-1); MONOCYTES 5 % (0-8); MYELOCYTES 2 % (0-0); NEUTROPHIL # MANUAL DIFF 10.8 TH/MM3 (1.8-7.7); NUCLEATED RED BLOOD CELL 1 (0-0); POLYS (SEG NEUTROPHILS) 77 % (16-70)
[2017-09-11 09:20] LABS: OVALOCYTES 1+ (NORMAL); TEARDROP RBCS 1+ (NORMAL)
[2017-09-11] MEDS: LEVOFLOXACIN 250 MG PREMIX INJ 50 ML IV SCH (11:30)
[2017-09-11] MEDS: fentaNYL DRIP 250 ML IV PRN (11:57)
--- NOTE | 2017-09-11 15:18 | HHI.IDPN ---
Note Infectious Disease Note Patient is on the ventilator. He has blood-tinged secretions through the endotracheal tube. Receiving blood transfusion. No change in mental status. Currently in atrial fibrillation. Afebrile. Presented to the emergency department on 08/29 with respiratory symptoms. Intubated in the ED. PAST MEDICAL HISTORY: Left lung cancer, being treated with chemotherapy and radiation, coronary artery disease, peripheral arterial disease, COPD, hypertension, anxiety, depression, bilateral cataract surgery, recent pneumonia due to Pseudomonas in 04/2017 and 07/2017, history of iliac artery bypass surgery. ALLERGIES: NO KNOWN DRUG ALLERGIES. Antibiotics: Piperacillin/tazobactam. Levaquin. Objective: Vital Signs Date Time Temp Pulse Resp B/P (MAP) Pulse Ox O2 Delivery O2 Flow Rate FiO2 09/11/17 14:00 67 09/11/17 13:24 99.4 71 18 121/67 95 09/11/17 13:06 99.1 72 18 129/73 95 09/11/17 12:50 95 40 09/11/17 12:00 40 09/11/17 12:00 74 09/11/17 12:00 98.3 74 127/66 (86) 91 09/11/17 11:00 78 146/81 (102) 91 09/11/17 10:20 92 40 09/11/17 10:00 40 09/11/17 10:00 75 152/76 (101) 91 09/11/17 10:00 75 09/11/17 09:40 94 40 09/11/17 09:16 80 145/83 09/11/17 09:00 82 145/83 (103) 94 09/11/17 08:19 88 40 09/11/17 08:19 40 09/11/17 08:00 40 09/11/17 08:00 98.4 81 141/78 (99) 94 09/11/17 08:00 81 09/11/17 07:17 98 40 09/11/17 07:00 81 145/79 (101) 97 09/11/17 07:00 97 Mechanical Ventilator 09/11/17 06:00 78 09/11/17 05:15 40 09/11/17 05:00 98 40 09/11/17 04:11 100 50 09/11/17 04:00 76 09/11/17 04:00 77 139/74 (95) 100 09/11/17 04:00 50 09/11/17 04:00 77 139/74 09/11/17 03:00 98 159/89 (112) 93 09/11/17 02:00 90 162/86 (111) 95 09/11/17 02:00 90 09/11/17 01:11 92 50 09/11/17 01:00 91 164/91 (115) 96 09/11/17 00:00 98.0 89 155/83 (107) 96 09/11/17 00:00 90 09/11/17 00:00 89 155/83 09/11/17 00:00 50 09/10/17 23:00 92 147/80 (102) 98 09/10/17 22:06 97 50 09/10/17 22:00 90 148/82 (104) 97 09/10/17 22:00 90 09/10/17 22:00 90 148/82 09/10/17 21:00 91 152/76 (101) 96 09/10/17 20:00 50 09/10/17 20:00 99.7 97 176/92 (120) 94 09/10/17 20:00 90 09/10/17 19:30 95 50 09/10/17 19:30 97 175/92 09/10/17 19:11 96 173/99 09/10/17 19:00 98 Mechanical Ventilator 09/10/17 18:00 99 09/10/17 16:00 45 09/10/17 16:00 99.9 95 173/100 (124) 93 09/10/17 16:00 95 09/10/17 15:15 45 Laboratory Tests Test 09/11/17 08:22 White Blood Count 11.7 TH/MM3 Red Blood Count 2.15 MIL/MM3 Hemoglobin 6.3 GM/DL Hematocrit 19.1 % Mean Corpuscular Volume 89.3 FL Mean Corpuscular Hemoglobin 29.2 PG Mean Corpuscular Hemoglobin Concent 32.7 % Red Cell Distribution Width 18.9 % Platelet Count 130 TH/MM3 Mean Platelet Volume 8.7 FL Neutrophils (%) (Auto) 86.6 % Lymphocytes (%) (Auto) 2.6 % Monocytes (%) (Auto) 10.6 % Eosinophils (%) (Auto) 0.0 % Basophils (%) (Auto) 0.2 % Neutrophils # (Auto) 10.1 TH/MM3 Lymphocytes # (Auto) 0.3 TH/MM3 Monocytes # (Auto) 1.2 TH/MM3 Eosinophils # (Auto) 0.0 TH/MM3 Basophils # (Auto) 0.0 TH/MM3 CBC Comment AUTO DIFF Differential Total Cells Counted 100 Neutrophils % (Manual) 77 % Band Neutrophils % 12 % Lymphocytes % 3 % Monocytes % 5 % Neutrophils # (Manual) 10.8 TH/MM3 Metamyelocytes 1 % Myelocytes 2 % Nucleated Red Blood Cells 1 /100 WBC Differential Comment FINAL DIFF MANUAL Platelet Estimate LOW Platelet Morphology Comment NORMAL Tear Drop Cells 1+ Ovalocytes 1+ Laboratory Tests Test 09/09/17 16:38 09/10/17 05:12 09/10/17 13:38 09/10/17 21:43 Blood Urea Nitrogen 43 MG/DL 40 MG/DL 37 MG/DL 38 MG/DL Creatinine 0.95 MG/DL 0.97 MG/DL 1.07 MG/DL 1.15 MG/DL Random Glucose 106 MG/DL 111 MG/DL 176 MG/DL 125 MG/DL Calcium Level 8.3 MG/DL 8.2 MG/DL 8.3 MG/DL 7.9 MG/DL Magnesium Level 2.2 MG/DL 2.1 MG/DL 2.1 MG/DL 2.0 MG/DL Sodium Level 146 MEQ/L 145 MEQ/L 143 MEQ/L 143 MEQ/L Potassium Level 4.0 MEQ/L 3.9 MEQ/L 4.1 MEQ/L 3.6 MEQ/L Chloride Level 105 MEQ/L 106 MEQ/L 103 MEQ/L 102 MEQ/L Carbon Dioxide Level 30.4 MEQ/L 29.4 MEQ/L 30.3 MEQ/L 30.7 MEQ/L Anion Gap 11 MEQ/L 10 MEQ/L 10 MEQ/L 10 MEQ/L Estimat Glomerular Filtration Rate 80 ML/MIN 78 ML/MIN 70 ML/MIN 64 ML/MIN Total Protein 5.4 GM/DL Albumin 2.3 GM/DL Phosphorus Level 3.9 MG/DL 4.3 MG/DL 4.3 MG/DL Alkaline Phosphatase 84 U/L Aspartate Amino Transf (AST/SGOT) 23 U/L Alanine Aminotransferase (ALT/SGPT) 36 U/L Total Bilirubin 0.4 MG/DL Test 09/11/17 04:11 Blood Urea Nitrogen 38 MG/DL Creatinine 1.14 MG/DL Random Glucose 139 MG/DL Calcium Level 7.5 MG/DL Phosphorus Level 3.8 MG/DL Magnesium Level 1.9 MG/DL Sodium Level 145 MEQ/L Potassium Level 3.4 MEQ/L Chloride Level 103 MEQ/L Carbon Dioxide Level 33.0 MEQ/L Anion Gap 9 MEQ/L Estimat Glomerular Filtration Rate 65 ML/MIN IMAGING: Chest X-Ray 09/10/17 06 Signed Impressions: Service Date/Time: September 03:12 - CONCLUSION: 1. Interval improvement in consolidative opacity in the left lung base with focal consolidation remaining in the left perihilar region. 2. More hazy diffuse opacity remains in the right lung. iWlly Pantoja MD Chest X-Ray 09/08/17 0600 Signed Impressions: Service Date/Time: Friday, September 08, 2017 04:07 - CONCLUSION: Stable appearance to the chest. Persistent consolidation left lower lobe. Luis Castro MD Chest X-Ray 09/07/17 06 Signed Impressions: Service Date/Time: Thursday, September 07, 2017 04:21 - CONCLUSION: Increasing consolidation left lower lobe a combination of airspace disease and pleural effusion. Luis Castro MD Chest X-Ray 09/06/17 0600 Signed Impressions: Service Date/Time: Wednesday, September 06, 2017 03:03 - CONCLUSION: Improving aeration Dmitri Mohan MD Chest X-Ray 09/02/17 0000 Signed Impressions: Service Date/Time: Saturday, September 02, 2017 06:32 - CONCLUSION: Bilateral airspace disease with interval worsening in the left base. Possible developing left-sided effusion. Jaret Crouch MD Abdomen X-Ray 08/31/17 0000 Signed Impressions: Service Date/Time: Thursday, August 31, 2017 20:34 - CONCLUSION: 1. Nasogastric tube tip in distal stomach. David Jay MD CT Angiography 08/29/17 1849 Signed Impressions: Service Date/Time: Tuesday, August 29, 2017 19:36 - CONCLUSION: 1. Multilobar consolidation. 2. No evidence for pulmonary embolism. 3. Extensive coronary calcifications Pk Bae MD PHYSICAL EXAMINATION: GENERAL: On the ventilator. HEENT: Pupils reactive to light. No icterus. Moist oral mucosa. NECK: No swelling. No adenopathy. LUNGS: Bilateral rhonchi. HEART: Regular rate and rhythm. Slight systolic murmur at the left sternal border. ABDOMEN: Bowel sounds present, soft. EXTREMITIES: Ecchymosis and edema at both upper extremities. No clubbing or cyanosis. SKIN: No diffuse rash. NEUROLOGIC: Unable to assess. PSYCHIATRIC: Unable to assess. IMPRESSION: 1. Bilateral pneumonia due to Pseudomonas. 2. Acute respiratory failure. Ventilator dependent. 3. History of lung cancer. RECOMMENDATIONS: 1. Continue piperacillin/tazobactam. 2. Continue the Levaquin. 3. Continue to monitor clinical status. 4. New sputum culture. Herve Zarate MD September 11, 2017 15:18
[2017-09-11 19:45] LABS: AUTOMATED NEUTROPHIL # 11.2 TH/MM3 (1.8-7.7); BASOPHIL % 0.1 % (0.0-2.0); HEMATOCRIT 26.4 % (39.0-51.0); HEMOGLOBIN 8.9 GM/DL (13.0-17.0); LYMPH % 1.6 % (9.0-44.0); LYMPHOCYTE # 0.2 TH/MM3 (1.0-4.8); MEAN CELL VOLUME 89.6 FL (80.0-100.0); MEAN CORPUSCULAR HEMOGLOBIN 30.3 PG (27.0-34.0); MEAN CORPUSCULAR HGB CONC 33.8 % (32.0-36.0); MEAN PLATELET VOLUME 8.3 FL (7.0-11.0); MONOCYTE # 0.5 TH/MM3 (0-0.9); NEUT % 94.3 % (16.0-70.0); PLATELET COUNT 127 TH/MM3 (150-450); RED BLOOD COUNT 2.95 MIL/MM3 (4.50-5.90); RED CELL DISTRIBUTION WIDTH 18.2 % (11.6-17.2); WHITE BLOOD COUNT 11.9 TH/MM3 (4.0-11.0)
[2017-09-11 20:06] LABS: BICARBONATE 31.6 MEQ/L (21.0-32.0); CALCIUM 7.9 MG/DL (8.5-10.1); CREATININE 1.12 MG/DL (0.60-1.30); PHOSPHORUS 4.5 MG/DL (2.5-4.9)
[2017-09-11 21:13] LABS: BANDS 2 % (0-6); CORRECTED NUCLEATED RBC 4 /100 WBC (0-0); LYMPHOCYTES 3 % (9-44); METAMYELOCYTES 1 % (0-1); MONOCYTES 2 % (0-8); MYELOCYTES 1 % (0-0); NEUTROPHIL # MANUAL DIFF 11.3 TH/MM3 (1.8-7.7); NUCLEATED RED BLOOD CELL 4 (0-0); POLYS (SEG NEUTROPHILS) 91 % (16-70)
[2017-09-12] VITALS (19 sets, daily range): BP systolic 126–166; BP diastolic 72–81; PULSE 56–96; RESP 16–18; TEMP 97.6–99.1; O2SAT 92–98
[2017-09-12] MEDS: INSULIN NovoLIN REGULAR SUPPLEMENTAL SCALE SQ SCH ×5 (00:23→21:57)
[2017-09-12 01:55] LABS: BASOPHIL % 0.2 % (0.0-2.0); HEMOGLOBIN 9.6 GM/DL (13.0-17.0); LYMPHOCYTE # 0.2 TH/MM3 (1.0-4.8); MEAN CELL VOLUME 89.8 FL (80.0-100.0); MEAN CORPUSCULAR HEMOGLOBIN 30.6 PG (27.0-34.0); MEAN CORPUSCULAR HGB CONC 34.1 % (32.0-36.0); MEAN PLATELET VOLUME 8.7 FL (7.0-11.0); MONO % 8.4 % (0.0-8.0); NEUT % 89.4 % (16.0-70.0); PLATELET COUNT 136 TH/MM3 (150-450); RED BLOOD COUNT 3.12 MIL/MM3 (4.50-5.90); RED CELL DISTRIBUTION WIDTH 18.2 % (11.6-17.2); WHITE BLOOD COUNT 12.3 TH/MM3 (4.0-11.0)
[2017-09-12] MEDS: PIPERACIL-TAZO 4.5 GM PREMIX 100 ML IV SCH ×3 (01:59→13:04)
[2017-09-12] MEDS: DILTIAZEM HCL 90 MG TAB PO SCH ×2 (02:00→09:59)
[2017-09-12 02:13] LABS: ALBUMIN 3.2 GM/DL (3.4-5.0); ALKALINE PHOSPHATASE 61 U/L (45-117); ALT (GPT) 21 U/L (12-78); AST (GOT) 12 U/L (15-37); BICARBONATE 33.6 MEQ/L (21.0-32.0); BLOOD UREA NITROGEN 40 MG/DL (7-18); CALCIUM 7.7 MG/DL (8.5-10.1); CHLORIDE 99 MEQ/L (98-107); CREATININE 1.14 MG/DL (0.60-1.30); GLOMERULAR FILTRATION RATE 65 ML/MIN (>89); GLUCOSE,RANDOM 150 MG/DL (74-106); PHOSPHORUS 3.9 MG/DL (2.5-4.9); SODIUM (NA) 142 MEQ/L (136-145); TOTAL BILIRUBIN ADULT 0.6 MG/DL (0.2-1.0); TOTAL PROTEIN 5.9 GM/DL (6.4-8.2)
[2017-09-12] MEDS: fentaNYL DRIP 250 ML IV PRN ×2 (02:46→18:58)
[2017-09-12] MEDS: FUROSEMIDE INJ 100 MG in SODIUM CHLORIDE 0.9% INJ 90 ML IV SCH ×2 (02:47→20:34)
[2017-09-12] MEDS: CHLORHEXIDINE GLUCONATE 2 % 1 PACK (2 CLOTHS) TOP SCH ×2 (04:00→20:12)
[2017-09-12] MEDS: ARTIFICIAL TEARS OPTH SOLN 15 ML BTL EACH EYE SCH ×3 (05:38→20:34)
[2017-09-12] MEDS: hydrALAZINE HCL 25 MG TAB PO SCH ×3 (05:38→20:34)
[2017-09-12] MEDS: ISOSORBIDE DINITRATE 10 MG TAB PO SCH ×3 (05:38→20:34)
[2017-09-12] MEDS: FREE WATER NG SCH ×5 (05:39→21:57)
--- NOTE | 2017-09-12 06:12 | RADRPT ---
EXAM DATE/TIME: 09/12/2017 06:06 [place] COMPARISON: CHEST SINGLE AP, September 10, 2017, 3:12. INDICATIONS : Shortness of breath, left lung base consolidation. MEDICAL HISTORY : Hypertension. Chronic obstructive pulmonary disease. Carcinoma, lung. SURGICAL HISTORY : None. ENCOUNTER: Subsequent ACUITY: 1 week PAIN SCORE: Non-responsive. LOCATION: Bilateral chest FINDINGS: Single AP semierect view of the chest was obtained and again demonstrates endotracheal tube in place with the tip 3 cm above the evelia. The nasogastric tube remains in place. There has been interval in crease in the airspace disease in left perihilar region the left lung base. The hazy opacity in the r ight lung is not significant change. The heart size is at the upper limits of normal. CONCLUSION: 1. Increased consolidation at the left lung base. 2. Stable infiltrate in the right lung. Willy Pantoja MD on September 12, 2017 at 6:08 Board Certified Radiologist. This report was verified electronically.
[2017-09-12] MEDS ORDERED: CALCIUM GLUCONATE INJ 1 GM in SODIUM CHLORIDE 0.9% INJ 100 ML IV ONE (06:45)
[2017-09-12] MEDS: CHLORHEXIDINE 0.12% (ORAL KIT) 15 ML CUP MT SCH ×2 (08:00→19:39)
[2017-09-12 08:15] LABS: HEMATOCRIT 30.3 % (39.0-51.0); HEMOGLOBIN 10.4 GM/DL (13.0-17.0); MEAN CELL VOLUME 89.6 FL (80.0-100.0); MEAN CORPUSCULAR HEMOGLOBIN 30.8 PG (27.0-34.0); MEAN CORPUSCULAR HGB CONC 34.3 % (32.0-36.0); MEAN PLATELET VOLUME 9.1 FL (7.0-11.0); PLATELET COUNT 150 TH/MM3 (150-450); RED BLOOD COUNT 3.38 MIL/MM3 (4.50-5.90); RED CELL DISTRIBUTION WIDTH 18.5 % (11.6-17.2); WHITE BLOOD COUNT 14.6 TH/MM3 (4.0-11.0)
[2017-09-12 09:14] LABS: BICARBONATE 32.8 MEQ/L (21.0-32.0); CREATININE 1.16 MG/DL (0.60-1.30); MAGNESIUM 2.1 MG/DL (1.5-2.5)
[2017-09-12 09:16] LABS: PHOSPHORUS 4.1 MG/DL (2.5-4.9)
[2017-09-12] MEDS: POTASSIUM CHLOR 20 MEQ PREMIX 100 ML IV PRN ×2 (09:28→11:35)
[2017-09-12] MEDS: PROPOFOL 1000 MG/100 ML INJ 100 ML IV PRN ×2 (09:32→17:45)
[2017-09-12] MEDS: LACTULOSE SYRUP 20 GM/30 ML CUP PO SCH (09:57)
[2017-09-12] MEDS: methylPREDNISolone SOD SUCC 40 MG/1 ML VIAL IV PUSH SCH (09:57)
[2017-09-12] MEDS: AMIODARONE 200 MG TAB NG SCH ×2 (09:58→20:12)
[2017-09-12] MEDS: LANSOPRAZOLE SOLUTAB 30 MG TAB NG SCH (09:58)
[2017-09-12] MEDS: PRAVASTATIN SOD 10 MG TAB PO SCH (09:59)
[2017-09-12] MEDS: METOPROLOL TARTRATE 50 MG TAB PO SCH ×2 (09:59→20:12)
[2017-09-12] MEDS: DOCUSATE SODIUM 50 MG/SENNA 8.6 MG TAB PO SCH ×2 (09:59→19:39)
--- NOTE | 2017-09-12 10:26 | HHI.CCPN ---
Subjective Remarks/Hospital Course 08/29: This is a 61-year-old male with a history of lung cancer undergoing current chemotherapy and radiation who was recently admitted on 07/19 for aspiration pneumonia. During that admission he did have episodes of paroxysmal atrial fibrillation and had an echo from 04/2017 showing an EF of 50-55%. He represents today to the emergency department with acute shortness of breath since last night. Per the ER documentation, he denies any coughing, fever, chills, or other recent symptoms or changes other than the new dyspnea. In the emergency department he was found to be in A. fib with RVR. This initially converted to sinus rhythm 1 after diltiazem 20 mg IV bolus, but then very quickly went back into atrial for ablation with rapid ventricular response. 2 doses of adenosine were not able to convert it. The patient was loaded with amiodarone and infusion was started. After this, the patient become acutely hypoxemic requiring emergent intubation. Please refer to the emergency room physician documentation for additional details regarding the decompensation. When I came to evaluate patient, the patient was recently intubated, sedated. No additional information is available from the patient due to his clinical condition. Review of systems is unobtainable. Critical care medicine is consulted to evaluate manage his acute hypoxic respiratory failure along with his acute supraventricular tachycardia. 08/30: Patient remains intubated and sedated. FiO2 down to 0.5. Patient continues to be on amiodarone infusion and heparin drip. Sedation achieved with propofol and fentanyl. Patient remains hypothermic requiring Gracia hugger, urine output 350 mL's documented since admission. 08/31: No events over the night. Patient remains intubated and sedated. Hemoglobin more stable posttransfusion. Hypothermia resolved, T-max of 100.3. Urine output remains low, 635 mL's over the last 24 hours. Oxygenation is improved. No family present at bedside. Patient remains in sinus rhythm, on amiodarone infusion. No report of melena, hematochezia or coffee-ground aspirate from NG tube. Morning chest x-ray reviewed, worsening infiltrates over the right thorax, unchanged consolidation over the left. 09/01: Afebrile. Patient was extubated yesterday afternoon and emergently intubated 1030 last night secondary to hypoxemic respiratory failure. This x- ray pending this a.m.. The patient also was noted to have severe metabolic acidosis and sodium bicarbonate infusion was initiated. Patient noted to have Pseudomonas, and placed on Zosyn. Patient continues to have leukocytosis with worsening pneumonia ID has been consulted appreciate recommendations. Patient previously DNR palliative has been consulted up on hypoxemic respiratory failure patient was noted to request intubation at that time. Palliative care consult pending. Patient continues on amiodarone infusion now in sinus rhythm. Amiodarone infusion discontinued the patient continued on metoprolol and Cardizem home medications. Hemoglobin appears stable status post 2 units transfusion 48 hours ago. Will do serial H&H's aspirin reinitiated will hold Plavix for now, and continue to follow. Subcu heparin initiated. 09/02: Afebrile. Hemoglobin stable for the last 24 hours. Plan to restart tube feeds this a.m.. Metabolic acidosis resolved, patient's sodium bicarbonate discontinued. Patient requiring increasing FiO2 requirements during the night , now at 100% ABG pending. This am chest x-ray worsening. 09/03: Late entry note patient seen at 8:15 AM .afebrile. Chest x-ray continues to worsen. FiO2 requirement slightly decreased we will attempt CPAP trials today. 09/04: Afebrile. patient awake and following commands this a.m. Currently on CPAP trials. FiO2 weaned to 45% 09/05: Afebrile. Patient tolerating CPAP trials. She noted to have elevated blood glucose level secondary methylprednisolone. Chest x-ray now improving methylprednisolone taper initiated. Patient noted to still have episodes of hypertension Cardizem increased to 90 mg every 6 hours. 09/06: Patient currently in a flutter. Received adenosine 12 mg 1 which feels a flutter. Echocardiogram CPK and troponin ordered. TSH normal during this hospitalization. Potassium magnesium both normalized. Arousable and follows commands. Subjective 09/07: Patient is currently on PSV trial 20/8 ~35%. Patient oscillating on CODE STATUS. Tolerating tube feeds. Remains in normal sinus rhythm on amiodarone drip. 09/08: No events over the night. CPAP trial was attempted this morning patient went into A. fib with RVR after 15 minutes. Patient was switched back to full support, and converted to sinus rhythm. He continues to be on amiodarone infusion and heparin drip. He is lethargic but easily arousable able to follow some commands. FiO2 at 0.5 and PEEP at 8. T-max of 99. 5/9: No events over the night. T-max of 98.9. Patient remains intubated and sedated, on propofol and fentanyl. CPAP trial attempted this morning again and patient went into A. fib with RVR and hypoxia, therefore he was placed back on PRVC. No family present at bedside. Urine output of 2350 mL over the last 24 hours. He is +22 L since admission charting is correct. 09/10: No events over the night. This morning patient is in A. fib with RVR heart rate 150, hemodynamically stable. Patient had excellent response to diuresis, urine output greater than 4 L over the last 24 hours. T-max of 98.5. No family present at bedside. Morning chest x-ray reviewed. 09/11: Patient did well over the night. He remains in sinus rhythm on amiodarone infusion. Patient was started on Lasix drip yesterday with great urine output. Patient is negative approximately 2.5 L over the last 24 hours. Afebrile, with Tmax of 99.9. Oxygenation down to 40%. 09/12: No events over the night. Patient remains afebrile with a T-max of 99.4. Patient continues to be on Lasix drip with good urine output however he still on positive fluid balance over the last 24 hours. Lasix drip increased to 7.5 mg/h this morning. He continues to be on amiodarone infusion, and sedation with propofol and fentanyl. Patient is awake, weak, following some commands. Oxygenation not significantly improved, still requiring PEEP of 7 and 50% O2. Morning chest x-ray reviewed, ET tube is in good position, no significant change compared to 2 days ago. Objective Vital Signs Date Time Temp Pulse Resp B/P (MAP) Pulse Ox O2 Delivery O2 Flow Rate FiO2 09/12/17 08:48 97 50 09/12/17 06:14 64 144/81 09/12/17 04:00 97.6 18 09/11/17 21:04 Ventilator Intake and Output 09/12/17 09/12/17 09/12/17 07:59 15:59 23:59 Intake Total 1461.8 ml Output Total 1750 ml Balance -288.2 ml Result Diagram: 09/12/17 0750 09/12/17 0750 Other Results Microbiology Date/Time Source Procedure Growth Status 09/11/17 18:30 Stool Stool Stool Occult Blood (ANDREW) - Final HEMOCCULT POSITIVE Complete Laboratory Tests Test 09/12/17 05:15 Blood Gas Puncture Site RT RADIAL Blood Gas Patient Temperature 98.6 Blood Gas HCO3 34 mmol/L (22-26) Blood Gas Base Excess 9.7 mmol/L (-2-2) Blood Gas Oxygen Saturation 84 % (90-100) Arterial Blood pH 7.45 (7.380-7.420) Arterial Blood Partial Pressure CO2 49 mmHg (38-42) Arterial Blood Partial Pressure O2 52 mmHg (61-120) Arterial Blood Oxygen Content 11.7 Vol % (12.0-20.0) Arterial Blood Carboxyhemoglobin 1.7 % (0-4) Arterial Blood Methemoglobin 1.2 % (0-2) Blood Gas Hemoglobin 9.9 G/DL (12.0-16.0) Oxygen Delivery Device VENT Blood Gas Ventilator Setting PRVC/AC Blood Gas Inspired Oxygen 40 % Imaging Last 24 hours Impressions Chest X-Ray 09/12/17599 Signed Impressions: Service Date/Time: Tuesday, September 12, 2017 06:06 - CONCLUSION: 1. Increased consolidation at the left lung base. 2. Stable infiltrate in the right lung. Willy Pantoja MD Last 24 hours Impressions Chest X-Ray 09/10/17599 Signed Impressions: Service Date/Time: September 03:12 - CONCLUSION: 1. Interval improvement in consolidative opacity in the left lung base with focal consolidation remaining in the left perihilar region. 2. More hazy diffuse opacity remains in the right lung. Willy Pantoja MD Last 24 hours Impressions Chest X-Ray 09/08/17599 Signed Impressions: Service Date/Time: Friday, September 08, 2017 04:07 - CONCLUSION: Stable appearance to the chest. Persistent consolidation left lower lobe. Luis Castro MD Last Impressions Chest X-Ray 09/07/17599 Signed Impressions: Service Date/Time: Thursday, September 07, 2017 04:21 - CONCLUSION: Increasing consolidation left lower lobe a combination of airspace disease and pleural effusion. Luis Castor MD Abdomen X-Ray 08/31/17 0000 Signed Impressions: Service Date/Time: Thursday, August 31, 2017 20:34 - CONCLUSION: 1. Nasogastric tube tip in distal stomach. David Jay MD CT Angiography 08/29/17 1849 Signed Impressions: Service Date/Time: Tuesday, August 29, 2017 19:36 - CONCLUSION: 1. Multilobar consolidation. 2. No evidence for pulmonary embolism. 3. Extensive coronary calcifications Pk Bae MD Objective Remarks General - elderly gentleman, intubated, sedated, arousable, ill-appearing HEENT - pupils equal, reactive, sclerae anicteric, neck supple, no rigidity, no neck vein distention, orally intubated, + NGT CV - regular heart sound, no murmurs Chest - coarse breath sounds b/l, good air entry, no wheezes Abdomen - remains soft, bowel sounds present, nontender, not distended Extremities - warm 2+ edema over both lower extremities, improved, and 3+ edema over upper extremities, improved, strong peripheral pulses Neuro - pupils equal and reactive, opens eyes to voice stimuli, follows some commands, moves all extremities but he remains very weak A/P Problem List: (1) OBED (acute kidney injury) ICD Code: N17.9 - Acute kidney failure, unspecified (2) Severe protein-calorie malnutrition ICD Code: E43 - Unspecified severe protein-calorie malnutrition Status: Chronic (3) Shortness of breath ICD Code: R06.02 - Shortness of breath Status: Acute (4) Tobacco abuse ICD Code: Z72.0 - Tobacco use Status: Chronic (5) Paroxysmal A-fib ICD Code: I48.0 - Paroxysmal atrial fibrillation Status: Chronic (6) Atrial fibrillation with RVR ICD Code: I48.91 - Unspecified atrial fibrillation Status: Resolved (7) PNA (pneumonia) ICD Code: J18.9 - Pneumonia, unspecified organism (8) COPD (chronic obstructive pulmonary disease) ICD Code: J44.9 - Chronic obstructive pulmonary disease, unspecified (9) Lung cancer ICD Code: C34.90 - Malignant neoplasm of unspecified part of unspecified bronchus or lung (10) Debility ICD Code: R53.81 - Other malaise Status: Chronic (11) Pain ICD Code: R52 - Pain, unspecified Status: Chronic (12) Lung consolidation ICD Code: J18.1 - Lobar pneumonia, unspecified organism Status: Acute (13) Acute respiratory failure with hypoxia and hypercarbia ICD Code: J96.01 - Acute respiratory failure with hypoxia; J96.02 - Acute respiratory failure with hypercapnia Assessment and Plan 1. Acute hypoxic and hypercapnic respiratory failure -unchanged 2. Pseudomonas pneumonia -patient remains afebrile 3. Acute COPD exacerbation -resolved 4. Lung cancer currently undergoing radiation therapy and chemotherapy prior to hospitalization 5. Atrial fibrillation with rapid ventricular response -multiple recurrences during the admission, currently in sinus rhythm on amiodarone infusion with heart rate in the 60s 6. Elevated troponin - trending down 7. Acute blood loss anemia -reoccurred, this morning's hemoglobin at 6.3. No clear evidence of bleed, no melena no hematemesis no hematochezia 8. OBED -resolved 9. Volume overload -patient more than 18 L positive since admission 1. Continue PRVC, patient is synchronized with the vent, no auto PEEP, PIP is 25. FiO2 at 0.5. Maintain PEEP at 7 2. Vent bundle and bronchodilators 3. Taper steroids 4. Hold Cardizem today 5. Continue Lasix drip but increase rate to 7.5 mg/h 6. Continue amiodarone infusion, appreciate cardiology consult 7. Hold heparin, aspirin and Plavix. Transfused 2 units PRBC on 09/11 8. Metoprolol tartrate 50 mg twice daily. Cardizem increased to 90 mg 4 times daily, on hold. Home medication is 240 mg daily 9. Holding lisinopril 5 mg daily medication. Add isosorbide mononitrate 10 mg 3 times daily and hydralazine 25 mg 3 times daily 10. On statin 11. On Zosyn and levofloxacin, followed by ID 12. Continue tube feeds, currently at goal 13. GI prophylaxis 14. DVT prophylaxis with SCDs. Heparin on hold due to acute anemia 15. Replete electrolytes per protocol No family present at bedside. Level 2 follow-up Problem Qualifiers (1) PNA (pneumonia): Qualified Codes: J18.1 - Lobar pneumonia, unspecified organism Sunny Herrera MD September 12, 2017 10:25
[2017-09-12] MEDS: LEVOFLOXACIN 250 MG PREMIX INJ 50 ML IV SCH (13:05)
[2017-09-12 15:29] LABS: BICARBONATE 35.2 MEQ/L (21.0-32.0); CALCIUM 7.7 MG/DL (8.5-10.1); CREATININE 1.17 MG/DL (0.60-1.30); PHOSPHORUS 3.8 MG/DL (2.5-4.9)
[2017-09-12] MEDS: RESP: ALBUTEROL 2.5 MG/3 ML NEB (PRN) NEB (19:56)
[2017-09-12 22:45] LABS: BICARBONATE 35.3 MEQ/L (21.0-32.0); CALCIUM 7.7 MG/DL (8.5-10.1); CREATININE 1.15 MG/DL (0.60-1.30); PHOSPHORUS 3.7 MG/DL (2.5-4.9)
[2017-09-13] VITALS (17 sets, daily range): BP systolic 165–186; BP diastolic 80–91; PULSE 58–82; RESP 16–20; TEMP 98.2–98.9; O2SAT 97–100
[2017-09-13] MEDS: PROPOFOL 1000 MG/100 ML INJ 100 ML IV PRN ×3 (03:41→22:16)
[2017-09-13] MEDS: ARTIFICIAL TEARS OPTH SOLN 15 ML BTL EACH EYE SCH ×3 (03:41→21:36)
[2017-09-13] MEDS: hydrALAZINE HCL 25 MG TAB PO SCH ×3 (03:41→21:36)
[2017-09-13] MEDS: ISOSORBIDE DINITRATE 10 MG TAB PO SCH ×3 (03:41→21:36)
[2017-09-13] MEDS: FREE WATER NG SCH ×3 (03:41→13:27)
[2017-09-13] MEDS: INSULIN NovoLIN REGULAR SUPPLEMENTAL SCALE SQ SCH ×3 (04:13→16:25)
[2017-09-13] MEDS: RESP: ALBUTEROL 2.5 MG/3 ML NEB (PRN) NEB ×2 (04:19→20:24)
[2017-09-13 04:25] LABS: AUTOMATED NEUTROPHIL # 11.7 TH/MM3 (1.8-7.7); BASOPHIL % 0.1 % (0.0-2.0); HEMATOCRIT 30.3 % (39.0-51.0); HEMOGLOBIN 10.4 GM/DL (13.0-17.0); LYMPH % 1.9 % (9.0-44.0); LYMPHOCYTE # 0.3 TH/MM3 (1.0-4.8); MEAN CELL VOLUME 89.4 FL (80.0-100.0); MEAN CORPUSCULAR HEMOGLOBIN 30.6 PG (27.0-34.0); MEAN CORPUSCULAR HGB CONC 34.2 % (32.0-36.0); MEAN PLATELET VOLUME 9.1 FL (7.0-11.0); MONO % 8.8 % (0.0-8.0); MONOCYTE # 1.2 TH/MM3 (0-0.9); NEUT % 89.2 % (16.0-70.0); PLATELET COUNT 153 TH/MM3 (150-450); RED BLOOD COUNT 3.38 MIL/MM3 (4.50-5.90); RED CELL DISTRIBUTION WIDTH 18.7 % (11.6-17.2); WHITE BLOOD COUNT 13.1 TH/MM3 (4.0-11.0)
[2017-09-13 04:51] LABS: ALT (GPT) 23 U/L (12-78); AST (GOT) 14 U/L (15-37); BICARBONATE 36.2 MEQ/L (21.0-32.0); BLOOD UREA NITROGEN 40 MG/DL (7-18); CALCIUM 7.9 MG/DL (8.5-10.1); CHLORIDE 95 MEQ/L (98-107); CREATININE 1.13 MG/DL (0.60-1.30); GLOMERULAR FILTRATION RATE 66 ML/MIN (>89); GLUCOSE,RANDOM 166 MG/DL (74-106); MAGNESIUM 1.9 MG/DL (1.5-2.5); PHOSPHORUS 3.6 MG/DL (2.5-4.9); SODIUM (NA) 141 MEQ/L (136-145)
[2017-09-13 04:54] LABS: ALKALINE PHOSPHATASE 87 U/L (45-117); TOTAL BILIRUBIN ADULT 0.6 MG/DL (0.2-1.0); TOTAL PROTEIN 6.1 GM/DL (6.4-8.2)
[2017-09-13] MEDS: hydrALAZINE HCL 20 MG/ML VIAL IV PUSH PRN ×2 (06:05→08:18)
[2017-09-13] MEDS: LABETALOL HCL 100 MG/20 ML VIAL IV PUSH PRN (06:35)
[2017-09-13] MEDS: LACTULOSE SYRUP 20 GM/30 ML CUP PO SCH (06:58)
[2017-09-13] MEDS: DOCUSATE SODIUM 50 MG/SENNA 8.6 MG TAB PO SCH ×2 (06:58→21:00)
[2017-09-13] MEDS: methylPREDNISolone SOD SUCC 40 MG/1 ML VIAL IV PUSH SCH (07:55)
[2017-09-13] MEDS: AMIODARONE 200 MG TAB NG SCH ×2 (07:55→21:36)
[2017-09-13] MEDS: PRAVASTATIN SOD 10 MG TAB PO SCH (07:55)
[2017-09-13] MEDS: METOPROLOL TARTRATE 50 MG TAB PO SCH ×2 (07:55→21:36)
[2017-09-13] MEDS: LANSOPRAZOLE SOLUTAB 30 MG TAB NG SCH (07:56)
[2017-09-13] MEDS: CHLORHEXIDINE 0.12% (ORAL KIT) 15 ML CUP MT SCH ×2 (07:57→21:36)
[2017-09-13 09:26] LABS: BANDS 7 % (0-6); LYMPHOCYTES 4 % (9-44); MONOCYTES 5 % (0-8); MYELOCYTES 2 % (0-0); NEUTROPHIL # MANUAL DIFF 11.9 TH/MM3 (1.8-7.7); POLYS (SEG NEUTROPHILS) 82 % (16-70)
[2017-09-13 09:27] LABS: KERATOCYTES 1+ (NORMAL); STOMATOCYTES 1+ (NORMAL)
[2017-09-13] MEDS: fentaNYL DRIP 250 ML IV PRN (11:49)
--- NOTE | 2017-09-13 12:10 | HHI.CCPN ---
Subjective Remarks/Hospital Course 08/29: This is a 61-year-old male with a history of lung cancer undergoing current chemotherapy and radiation who was recently admitted on 07/19 for aspiration pneumonia. During that admission he did have episodes of paroxysmal atrial fibrillation and had an echo from 04/2017 showing an EF of 50-55%. He represents today to the emergency department with acute shortness of breath since last night. Per the ER documentation, he denies any coughing, fever, chills, or other recent symptoms or changes other than the new dyspnea. In the emergency department he was found to be in A. fib with RVR. This initially converted to sinus rhythm 1 after diltiazem 20 mg IV bolus, but then very quickly went back into atrial for ablation with rapid ventricular response. 2 doses of adenosine were not able to convert it. The patient was loaded with amiodarone and infusion was started. After this, the patient become acutely hypoxemic requiring emergent intubation. Please refer to the emergency room physician documentation for additional details regarding the decompensation. When I came to evaluate patient, the patient was recently intubated, sedated. No additional information is available from the patient due to his clinical condition. Review of systems is unobtainable. Critical care medicine is consulted to evaluate manage his acute hypoxic respiratory failure along with his acute supraventricular tachycardia. 08/30: Patient remains intubated and sedated. FiO2 down to 0.5. Patient continues to be on amiodarone infusion and heparin drip. Sedation achieved with propofol and fentanyl. Patient remains hypothermic requiring Gracia hugger, urine output 350 mL's documented since admission. 08/31: No events over the night. Patient remains intubated and sedated. Hemoglobin more stable posttransfusion. Hypothermia resolved, T-max of 100.3. Urine output remains low, 635 mL's over the last 24 hours. Oxygenation is improved. No family present at bedside. Patient remains in sinus rhythm, on amiodarone infusion. No report of melena, hematochezia or coffee-ground aspirate from NG tube. Morning chest x-ray reviewed, worsening infiltrates over the right thorax, unchanged consolidation over the left. 09/01: Afebrile. Patient was extubated yesterday afternoon and emergently intubated 1030 last night secondary to hypoxemic respiratory failure. This x- ray pending this a.m.. The patient also was noted to have severe metabolic acidosis and sodium bicarbonate infusion was initiated. Patient noted to have Pseudomonas, and placed on Zosyn. Patient continues to have leukocytosis with worsening pneumonia ID has been consulted appreciate recommendations. Patient previously DNR palliative has been consulted up on hypoxemic respiratory failure patient was noted to request intubation at that time. Palliative care consult pending. Patient continues on amiodarone infusion now in sinus rhythm. Amiodarone infusion discontinued the patient continued on metoprolol and Cardizem home medications. Hemoglobin appears stable status post 2 units transfusion 48 hours ago. Will do serial H&H's aspirin reinitiated will hold Plavix for now, and continue to follow. Subcu heparin initiated. 09/02: Afebrile. Hemoglobin stable for the last 24 hours. Plan to restart tube feeds this a.m.. Metabolic acidosis resolved, patient's sodium bicarbonate discontinued. Patient requiring increasing FiO2 requirements during the night , now at 100% ABG pending. This am chest x-ray worsening. 09/03: Late entry note patient seen at 8:15 AM .afebrile. Chest x-ray continues to worsen. FiO2 requirement slightly decreased we will attempt CPAP trials today. 09/04: Afebrile. patient awake and following commands this a.m. Currently on CPAP trials. FiO2 weaned to 45% 09/05: Afebrile. Patient tolerating CPAP trials. She noted to have elevated blood glucose level secondary methylprednisolone. Chest x-ray now improving methylprednisolone taper initiated. Patient noted to still have episodes of hypertension Cardizem increased to 90 mg every 6 hours. 09/06: Patient currently in a flutter. Received adenosine 12 mg 1 which feels a flutter. Echocardiogram CPK and troponin ordered. TSH normal during this hospitalization. Potassium magnesium both normalized. Arousable and follows commands. Subjective 09/07: Patient is currently on PSV trial 20/8 ~35%. Patient oscillating on CODE STATUS. Tolerating tube feeds. Remains in normal sinus rhythm on amiodarone drip. 09/08: No events over the night. CPAP trial was attempted this morning patient went into A. fib with RVR after 15 minutes. Patient was switched back to full support, and converted to sinus rhythm. He continues to be on amiodarone infusion and heparin drip. He is lethargic but easily arousable able to follow some commands. FiO2 at 0.5 and PEEP at 8. T-max of 99. 09/09: No events over the night. T-max of 98.9. Patient remains intubated and sedated, on propofol and fentanyl. CPAP trial attempted this morning again and patient went into A. fib with RVR and hypoxia, therefore he was placed back on PRVC. No family present at bedside. Urine output of 2350 mL over the last 24 hours. He is +22 L since admission charting is correct. 09/10: No events over the night. This morning patient is in A. fib with RVR heart rate 150, hemodynamically stable. Patient had excellent response to diuresis, urine output greater than 4 L over the last 24 hours. T-max of 98.5. No family present at bedside. Morning chest x-ray reviewed. 09/11: Patient did well over the night. He remains in sinus rhythm on amiodarone infusion. Patient was started on Lasix drip yesterday with great urine output. Patient is negative approximately 2.5 L over the last 24 hours. Afebrile, with Tmax of 99.9. Oxygenation down to 40%. 09/12: No events over the night. Patient remains afebrile with a T-max of 99.4. Patient continues to be on Lasix drip with good urine output however he still on positive fluid balance over the last 24 hours. Lasix drip increased to 7.5 mg/h this morning. He continues to be on amiodarone infusion, and sedation with propofol and fentanyl. Patient is awake, weak, following some commands. Oxygenation not significantly improved, still requiring PEEP of 7 and 50% O2. Morning chest x-ray reviewed, ET tube is in good position, no significant change compared to 2 days ago. 09/13: No events over the night. Patient remains intubated and sedated. Afebrile over the night with a T-max of 98.9. -1.5 L over the last 24 hours. Objective Vital Signs Date Time Temp Pulse Resp B/P (MAP) Pulse Ox O2 Delivery O2 Flow Rate FiO2 09/13/17 11:54 97 40 09/13/17 10:00 76 09/13/17 08:00 98.4 20 172/89 (116) 09/13/17 07:00 Mechanical Ventilator Intake and Output 09/13/17 09/13/17 09/13/17 07:59 15:59 23:59 Intake Total 1088 ml Output Total 1850 ml Balance -762 ml Result Diagram: 09/13/17 0342 09/13/17 0342 Other Results Microbiology Date/Time Source Procedure Growth Status 09/11/17 18:30 Stool Stool Stool Occult Blood (ANDREW) - Final HEMOCCULT POSITIVE Complete Imaging Last 24 hours Impressions Chest X-Ray 09/12/17 06 Signed Impressions: Service Date/Time: Tuesday, September 12, 2017 06:06 - CONCLUSION: 1. Increased consolidation at the left lung base. 2. Stable infiltrate in the right lung. Willy Pantoja MD Last 24 hours Impressions Chest X-Ray 09/10/17 0600 Signed Impressions: Service Date/Time: September 03:12 - CONCLUSION: 1. Interval improvement in consolidative opacity in the left lung base with focal consolidation remaining in the left perihilar region. 2. More hazy diffuse opacity remains in the right lung. Willy Pantoja MD Last 24 hours Impressions Chest X-Ray 09/08/17 0600 Signed Impressions: Service Date/Time: Friday, September 08, 2017 04:07 - CONCLUSION: Stable appearance to the chest. Persistent consolidation left lower lobe. Luis Castro MD Last Impressions Chest X-Ray 09/07/17 0600 Signed Impressions: Service Date/Time: Thursday, September 07, 2017 04:21 - CONCLUSION: Increasing consolidation left lower lobe a combination of airspace disease and pleural effusion. Luis Castro MD Abdomen X-Ray 08/31/17 0000 Signed Impressions: Service Date/Time: Thursday, August 31, 2017 20:34 - CONCLUSION: 1. Nasogastric tube tip in distal stomach. David Jay MD CT Angiography 08/29/17 [id number] Signed Impressions: Service Date/Time: Tuesday, August 29, 2017 19:36 - CONCLUSION: 1. Multilobar consolidation. 2. No evidence for pulmonary embolism. 3. Extensive coronary calcifications Pk Bae MD Objective Remarks General - elderly gentleman, intubated, sedated, arousable, ill-appearing HEENT - pupils are equal, reactive, sclerae are anicteric, neck is supple, no rigidity, no JVD, orally intubated, + NGT CV - regular S1 and S2, no murmurs Chest - coarse breath sounds b/l but improved, good air entry, no wheezes Abdomen - remains soft, bowel sounds present, nontender, not distended Extremities - 2+ edema over both lower extremities, improved, and 3+ edema over upper extremities, improved, strong peripheral pulses Neuro - pupils equal and reactive, opens eyes to voice stimuli, follows some commands, moves all extremities but he remains very weak A/P Problem List: (1) OBED (acute kidney injury) ICD Code: N17.9 - Acute kidney failure, unspecified (2) Severe protein-calorie malnutrition ICD Code: E43 - Unspecified severe protein-calorie malnutrition Status: Chronic (3) Shortness of breath ICD Code: R06.02 - Shortness of breath Status: Acute (4) Tobacco abuse ICD Code: Z72.0 - Tobacco use Status: Chronic (5) Paroxysmal A-fib ICD Code: I48.0 - Paroxysmal atrial fibrillation Status: Chronic (6) Atrial fibrillation with RVR ICD Code: I48.91 - Unspecified atrial fibrillation Status: Resolved (7) PNA (pneumonia) ICD Code: J18.9 - Pneumonia, unspecified organism (8) COPD (chronic obstructive pulmonary disease) ICD Code: J44.9 - Chronic obstructive pulmonary disease, unspecified (9) Lung cancer ICD Code: C34.90 - Malignant neoplasm of unspecified part of unspecified bronchus or lung (10) Debility ICD Code: R53.81 - Other malaise Status: Chronic (11) Pain ICD Code: R52 - Pain, unspecified Status: Chronic (12) Lung consolidation ICD Code: J18.1 - Lobar pneumonia, unspecified organism Status: Acute (13) Acute respiratory failure with hypoxia and hypercarbia ICD Code: J96.01 - Acute respiratory failure with hypoxia; J96.02 - Acute respiratory failure with hypercapnia Assessment and Plan 1. Acute hypoxic and hypercapnic respiratory failure -unchanged 2. Pseudomonas pneumonia -patient remains afebrile 3. Acute COPD exacerbation -resolved 4. Lung cancer currently undergoing radiation therapy and chemotherapy prior to hospitalization 5. Atrial fibrillation with rapid ventricular response -multiple recurrences during the admission, currently in sinus rhythm 6. Elevated troponin - trending down 7. Acute blood loss anemia -reoccurred, this morning's hemoglobin at 6.3. No clear evidence of bleed, no melena no hematemesis no hematochezia 8. OBED -resolved 9. Volume overload -patient more than 18 L positive since admission 1. Continue PRVC, patient is synchronized with the vent, no auto PEEP, PIP is 24. FiO2 at 0.5. Maintain PEEP at 7 2. Vent bundle and bronchodilators 3. Taper steroids 4. Restart amiodarone infusion at 0.5 (was held yesterday due to bradycardia) 5. Continue Lasix drip at 7.5 mg/h 6. Diamox 5001 today 7. Hold heparin, aspirin and Plavix. Transfused 2 units PRBC on 09/11 8. Metoprolol tartrate 50 mg twice daily. Cardizem increased to 90 mg 4 times daily, on hold. Home medication is 240 mg daily 9. Holding lisinopril 5 mg daily medication. Add isosorbide mononitrate 10 mg 3 times daily and hydralazine 25 mg 3 times daily 10. On statin 11. On Zosyn and levofloxacin, followed by ID 12. Continue tube feeds, currently at goal 13. GI prophylaxis 14. DVT prophylaxis with SCDs. Heparin on hold due to acute anemia 15. Replete electrolytes per protocol. Repeat potassium at 6 PM No family present at bedside. Level 2 follow-up Problem Qualifiers (1) PNA (pneumonia): Qualified Codes: J18.1 - Lobar pneumonia, unspecified organism Sunny Herrera MD September 13, 2017 12:10
--- NOTE | 2017-09-13 12:42 | HHI.IDPN ---
Note Infectious Disease Note Patient is on the ventilator. Awake and alert. Afebrile. Currently in normal sinus rhythm. Presented to the emergency department on 08/29 with respiratory symptoms. Intubated in the ED. PAST MEDICAL HISTORY: Left lung cancer, being treated with chemotherapy and radiation, coronary artery disease, peripheral arterial disease, COPD, hypertension, anxiety, depression, bilateral cataract surgery, recent pneumonia due to Pseudomonas in 04/2017 and 07/2017, history of iliac artery bypass surgery. ALLERGIES: NO KNOWN DRUG ALLERGIES. Antibiotics: Piperacillin/tazobactam. Levaquin. Objective: Vital Signs Date Time Temp Pulse Resp B/P (MAP) Pulse Ox O2 Delivery O2 Flow Rate FiO2 09/13/17 11:54 97 40 09/13/17 10:00 76 09/13/17 08:00 98.4 75 20 172/89 (116) 97 09/13/17 08:00 75 09/13/17 08:00 40 09/13/17 07:45 100 40 09/13/17 07:00 98 Mechanical Ventilator 50 09/13/17 06:00 82 09/13/17 04:12 99 50 09/13/17 04:00 40 09/13/17 04:00 98.9 67 16 186/90 (122) 99 09/13/17 04:00 67 09/13/17 02:00 62 09/13/17 00:00 98.3 59 16 168/80 (109) 98 09/13/17 00:00 40 09/13/17 00:00 59 09/12/17 23:37 98 50 09/12/17 22:00 59 09/12/17 20:00 65 09/12/17 20:00 40 09/12/17 20:00 98.9 65 16 166/81 (109) 98 09/12/17 19:51 98 50 09/12/17 19:00 97 Mechanical Ventilator 50 09/12/17 18:00 62 09/12/17 16:00 57 09/12/17 16:00 98.7 57 133/72 (92) 98 09/12/17 16:00 50 09/12/17 14:52 98 50 09/12/17 14:34 54 126/71 09/12/17 14:00 56 Laboratory Tests Test 09/11/17 19:35 5/12/18 01:44 09/12/17 07:50 09/13/17 03:42 White Blood Count 11.9 TH/MM3 12.3 TH/MM3 14.6 TH/MM3 13.1 TH/MM3 Red Blood Count 2.95 MIL/MM3 3.12 MIL/MM3 3.38 MIL/MM3 3.38 MIL/MM3 Hemoglobin 8.9 GM/DL 9.6 GM/DL 10.4 GM/DL 10.4 GM/DL Hematocrit 26.4 % 28.0 % 30.3 % 30.3 % Mean Corpuscular Volume 89.6 FL 89.8 FL 89.6 FL 89.4 FL Mean Corpuscular Hemoglobin 30.3 PG 30.6 PG 30.8 PG 30.6 PG Mean Corpuscular Hemoglobin Concent 33.8 % 34.1 % 34.3 % 34.2 % Red Cell Distribution Width 18.2 % 18.2 % 18.5 % 18.7 % Platelet Count 127 TH/MM3 136 TH/MM3 150 TH/MM3 153 TH/MM3 Mean Platelet Volume 8.3 FL 8.7 FL 9.1 FL 9.1 FL Neutrophils (%) (Auto) 94.3 % 89.4 % 89.2 % Lymphocytes (%) (Auto) 1.6 % 2.0 % 1.9 % Monocytes (%) (Auto) 4.0 % 8.4 % 8.8 % Eosinophils (%) (Auto) 0.0 % 0.0 % 0.0 % Basophils (%) (Auto) 0.1 % 0.2 % 0.1 % Neutrophils # (Auto) 11.2 TH/MM3 11.0 TH/MM3 11.7 TH/MM3 Lymphocytes # (Auto) 0.2 TH/MM3 0.2 TH/MM3 0.3 TH/MM3 Monocytes # (Auto) 0.5 TH/MM3 1.0 TH/MM3 1.2 TH/MM3 Eosinophils # (Auto) 0.0 TH/MM3 0.0 TH/MM3 0.0 TH/MM3 Basophils # (Auto) 0.0 TH/MM3 0.0 TH/MM3 0.0 TH/MM3 CBC Comment AUTO DIFF AUTO DIFF AUTO DIFF Differential Total Cells Counted 100 100 Neutrophils % (Manual) 91 % 82 % Band Neutrophils % 2 % 7 % Lymphocytes % 3 % 4 % Monocytes % 2 % 5 % Neutrophils # (Manual) 11.3 TH/MM3 11.9 TH/MM3 Metamyelocytes 1 % Myelocytes 1 % 2 % Nucleated Red Blood Cells 4 /100 WBC Differential Comment FINAL DIFF MANUAL AUTO DIFF CONFIRMED FINAL DIFF MANUAL Platelet Estimate LOW NORMAL Platelet Morphology Comment NORMAL NORMAL Stomatocytes 1+ Keratocytes 1+ Laboratory Tests Test 09/11/17 19:35 09/12/17 01:44 09/12/17 07:50 09/12/17 14:39 Blood Urea Nitrogen 40 MG/DL 40 MG/DL 40 MG/DL 40 MG/DL Creatinine 1.12 MG/DL 1.14 MG/DL 1.16 MG/DL 1.17 MG/DL Random Glucose 138 MG/DL 150 MG/DL 107 MG/DL 169 MG/DL Calcium Level 7.9 MG/DL 7.7 MG/DL 8.0 MG/DL 7.7 MG/DL Phosphorus Level 4.5 MG/DL 3.9 MG/DL 4.1 MG/DL 3.8 MG/DL Magnesium Level 2.0 MG/DL 2.0 MG/DL 2.1 MG/DL 2.0 MG/DL Sodium Level 140 MEQ/L 142 MEQ/L 140 MEQ/L 140 MEQ/L Potassium Level 3.6 MEQ/L 3.7 MEQ/L 3.5 MEQ/L 4.4 MEQ/L Chloride Level 99 MEQ/L 99 MEQ/L 98 MEQ/L 97 MEQ/L Carbon Dioxide Level 31.6 MEQ/L 33.6 MEQ/L 32.8 MEQ/L 35.2 MEQ/L Anion Gap 9 MEQ/L 9 MEQ/L 9 MEQ/L 8 MEQ/L Estimat Glomerular Filtration Rate 66 ML/MIN 65 ML/MIN 64 ML/MIN 63 ML/MIN Total Protein 5.9 GM/DL Albumin 3.2 GM/DL Alkaline Phosphatase 61 U/L Aspartate Amino Transf (AST/SGOT) 12 U/L Alanine Aminotransferase (ALT/SGPT) 21 U/L Total Bilirubin 0.6 MG/DL Test 09/12/17 18:48 09/12/17 21:47 09/13/17 03:42 Potassium Level 3.6 MEQ/L 3.5 MEQ/L 3.4 MEQ/L Blood Urea Nitrogen 42 MG/DL 40 MG/DL Creatinine 1.15 MG/DL 1.13 MG/DL Random Glucose 195 MG/DL 166 MG/DL Calcium Level 7.7 MG/DL 7.9 MG/DL Phosphorus Level 3.7 MG/DL 3.6 MG/DL Magnesium Level 2.0 MG/DL 1.9 MG/DL Sodium Level 141 MEQ/L 141 MEQ/L Chloride Level 96 MEQ/L 95 MEQ/L Carbon Dioxide Level 35.3 MEQ/L 36.2 MEQ/L Anion Gap 10 MEQ/L 10 MEQ/L Estimat Glomerular Filtration Rate 64 ML/MIN 66 ML/MIN Total Protein 6.1 GM/DL Albumin 3.0 GM/DL Alkaline Phosphatase 87 U/L Aspartate Amino Transf (AST/SGOT) 14 U/L Alanine Aminotransferase (ALT/SGPT) 23 U/L Total Bilirubin 0.6 MG/DL Microbiology Date/Time Source Procedure Growth Status 09/11/17 18:30 Stool Stool Stool Occult Blood (ANDREW) - Final HEMOCCULT POSITIVE Complete 09/11/17 17:30 Sputum Endotracheal Gram Stain - Final Resulted 09/11/17 17:30 Sputum Culture - Preliminary Pseudomonas Species Resulted IMAGING: Chest X-Ray [id number]/12/[id number] Signed Impressions: Service Date/Time: Tuesday, September 12, 2017 06:06 - CONCLUSION: 1. Increased consolidation at the left lung base. 2. Stable infiltrate in the right lung. Willy Pantoja MD Chest X-Ray [id number]/10/17599 Signed Impressions: Service Date/Time: September 03:12 - CONCLUSION: 1. Interval improvement in consolidative opacity in the left lung base with focal consolidation remaining in the left perihilar region. 2. More hazy diffuse opacity remains in the right lung. Willy aPntoja MD Chest X-Ray [id number]/08/17599 Signed Impressions: Service Date/Time: Friday, September 08, 2017 04:07 - CONCLUSION: Stable appearance to the chest. Persistent consolidation left lower lobe. Luis Castro MD Chest X-Ray 09/07/17599 Signed Impressions: Service Date/Time: Thursday, September 07, 2017 04:21 - CONCLUSION: Increasing consolidation left lower lobe a combination of airspace disease and pleural effusion. Luis Castro MD Chest X-Ray [id number]/06/17599 Signed Impressions: Service Date/Time: Wednesday, September 06, 2017 03:03 - CONCLUSION: Improving aeration Dmitri Mohan MD Chest X-Ray 09/02/17 0000 Signed Impressions: Service Date/Time: Saturday, September 02, 2017 06:32 - CONCLUSION: Bilateral airspace disease with interval worsening in the left base. Possible developing left-sided effusion. Jaret Crouch MD Abdomen X-Ray 08/31/17 0000 Signed Impressions: Service Date/Time: Thursday, August 31, 2017 20:34 - CONCLUSION: 1. Nasogastric tube tip in distal stomach. David Jay MD CT Angiography 08/29/17 1849 Signed Impressions: Service Date/Time: Tuesday, August 29, 2017 19:36 - CONCLUSION: 1. Multilobar consolidation. 2. No evidence for pulmonary embolism. 3. Extensive coronary calcifications Pk Bae MD PHYSICAL EXAMINATION: GENERAL: On the ventilator. No acute distress HEENT: Pupils reactive to light. No icterus. Moist oral mucosa. NECK: No swelling. No adenopathy. LUNGS: Bilateral rhonchi. HEART: Regular rate and rhythm. Slight systolic murmur at the left sternal border. ABDOMEN: Bowel sounds present, soft. EXTREMITIES: Ecchymosis at the upper extremities. Decreased edema. No clubbing or cyanosis. SKIN: No diffuse rash. NEUROLOGIC: Unable to assess. PSYCHIATRIC: Unable to assess. IMPRESSION: 1. Bilateral pneumonia due to Pseudomonas. Last sputum culture from 09/12 has light growth of Pseudomonas. 2. Acute respiratory failure. Ventilator dependent. 3. History of lung cancer. RECOMMENDATIONS: 1. Continue piperacillin/tazobactam. 2. Continue the Levaquin. 3. Continue to monitor clinical status. Herve Zarate MD September 13, 2017 12:42
[2017-09-13] MEDS: LEVOFLOXACIN 250 MG PREMIX INJ 50 ML IV SCH (12:46)
[2017-09-13] MEDS: FUROSEMIDE INJ 100 MG in SODIUM CHLORIDE 0.9% INJ 90 ML IV SCH (14:09)
[2017-09-14] VITALS (18 sets, daily range): BP systolic 139–177; BP diastolic 79–94; PULSE 56–85; RESP 18–20; TEMP 97.6–98.5; O2SAT 96–98
[2017-09-14] MEDS: AMIODARONE INJ 450 MG in SODIUM CHLOR 0.9% (EXCEL) INJ 241 ML IV PRN ×2 (03:37→22:20)
[2017-09-14] MEDS: fentaNYL DRIP 250 ML IV PRN ×2 (03:37→15:14)
[2017-09-14] MEDS: CHLORHEXIDINE GLUCONATE 2 % 1 PACK (2 CLOTHS) TOP SCH (04:00)
[2017-09-14] MEDS: FUROSEMIDE INJ 100 MG in SODIUM CHLORIDE 0.9% INJ 90 ML IV SCH (04:05)
[2017-09-14] MEDS: hydrALAZINE HCL 25 MG TAB PO SCH ×4 (05:13→21:17)
[2017-09-14] MEDS: ISOSORBIDE DINITRATE 10 MG TAB PO SCH ×3 (05:13→21:16)
[2017-09-14] MEDS: FREE WATER NG SCH ×2 (05:13)
[2017-09-14] MEDS: ARTIFICIAL TEARS OPTH SOLN 15 ML BTL EACH EYE SCH ×3 (05:14→21:19)
[2017-09-14] MEDS: INSULIN NovoLIN REGULAR SUPPLEMENTAL SCALE SQ SCH ×4 (05:19→17:17)
--- NOTE | 2017-09-14 05:24 | RADRPT ---
EXAM DATE/TIME: 09/14/2017 05:14 [facility] COMPARISON: CHEST SINGLE AP, September 12, 2017, 6:06. INDICATIONS : Shortness of breath, possible pulmonary disease. MEDICAL HISTORY : Hypertension. Chronic obstructive pulmonary disease. Carcinoma, lung. SURGICAL HISTORY : None. ENCOUNTER: Subsequent ACUITY: 1 week PAIN SCORE: Non-responsive. LOCATION: Bilateral chest FINDINGS: A single view of the chest demonstrates endotracheal tube in good position. NG enters stomach. Right basilar airspace disease has improved since September 12. Persistent left basilar airspace disease with ple ural effusion. CONCLUSION: 1. Left basilar airspace disease with small to moderate left effusion. Marked improvement in right ba silar airspace disease since September 12. David Jay MD on September 14, 2017 at 5:19 Board Certified Radiologist. This report was verified electronically.
[2017-09-14 05:41] LABS: AUTOMATED NEUTROPHIL # 14.6 TH/MM3 (1.8-7.7); BASOPHIL % 0.2 % (0.0-2.0); HEMATOCRIT 35.3 % (39.0-51.0); HEMOGLOBIN 12.1 GM/DL (13.0-17.0); LYMPH % 1.7 % (9.0-44.0); LYMPHOCYTE # 0.3 TH/MM3 (1.0-4.8); MEAN CELL VOLUME 89.3 FL (80.0-100.0); MEAN CORPUSCULAR HEMOGLOBIN 30.5 PG (27.0-34.0); MEAN CORPUSCULAR HGB CONC 34.2 % (32.0-36.0); MEAN PLATELET VOLUME 9.1 FL (7.0-11.0); MONO % 8.1 % (0.0-8.0); MONOCYTE # 1.3 TH/MM3 (0-0.9); PLATELET COUNT 175 TH/MM3 (150-450); RED BLOOD COUNT 3.96 MIL/MM3 (4.50-5.90); RED CELL DISTRIBUTION WIDTH 19.2 % (11.6-17.2); WHITE BLOOD COUNT 16.3 TH/MM3 (4.0-11.0)
[2017-09-14 06:03] LABS: ALBUMIN 3.2 GM/DL (3.4-5.0); ALKALINE PHOSPHATASE 83 U/L (45-117); ALT (GPT) 25 U/L (12-78); AST (GOT) 16 U/L (15-37); BICARBONATE 31.6 MEQ/L (21.0-32.0); BLOOD UREA NITROGEN 42 MG/DL (7-18); CALCIUM 8.5 MG/DL (8.5-10.1); CHLORIDE 95 MEQ/L (98-107); CREATININE 1.03 MG/DL (0.60-1.30); GLOMERULAR FILTRATION RATE 73 ML/MIN (>89); GLUCOSE,RANDOM 102 MG/DL (74-106); MAGNESIUM 2.2 MG/DL (1.5-2.5); PHOSPHORUS 3.7 MG/DL (2.5-4.9); SODIUM (NA) 140 MEQ/L (136-145); TOTAL BILIRUBIN ADULT 0.8 MG/DL (0.2-1.0); TOTAL PROTEIN 6.9 GM/DL (6.4-8.2)
[2017-09-14] MEDS: POTASSIUM CHLOR 20 MEQ PREMIX 100 ML IV PRN ×4 (06:16→17:19)
[2017-09-14 07:45] LABS: ACANTHOCYTES OCC (NORMAL); BANDS 12 % (0-6); LYMPHOCYTES 3 % (9-44); METAMYELOCYTES 2 % (0-1); MONOCYTES 5 % (0-8); POLYS (SEG NEUTROPHILS) 78 % (16-70)
[2017-09-14] MEDS: METOPROLOL TARTRATE 50 MG TAB PO SCH ×2 (09:00→21:16)
[2017-09-14] MEDS: DOCUSATE SODIUM 50 MG/SENNA 8.6 MG TAB PO SCH ×2 (09:00→21:17)
[2017-09-14] MEDS: PRAVASTATIN SOD 10 MG TAB PO SCH (09:41)
[2017-09-14] MEDS: LANSOPRAZOLE SOLUTAB 30 MG TAB NG SCH (09:41)
[2017-09-14] MEDS: LACTULOSE SYRUP 20 GM/30 ML CUP PO SCH (09:41)
[2017-09-14] MEDS: methylPREDNISolone SOD SUCC 40 MG/1 ML VIAL IV PUSH SCH (09:42)
--- NOTE | 2017-09-14 09:42 | HHI.CCPN ---
Subjective Remarks/Hospital Course 08/29: This is a 61-year-old male with a history of lung cancer undergoing current chemotherapy and radiation who was recently admitted on 07/19 for aspiration pneumonia. During that admission he did have episodes of paroxysmal atrial fibrillation and had an echo from 04/2017 showing an EF of 50-55%. He represents today to the emergency department with acute shortness of breath since last night. Per the ER documentation, he denies any coughing, fever, chills, or other recent symptoms or changes other than the new dyspnea. In the emergency department he was found to be in A. fib with RVR. This initially converted to sinus rhythm 1 after diltiazem 20 mg IV bolus, but then very quickly went back into atrial for ablation with rapid ventricular response. 2 doses of adenosine were not able to convert it. The patient was loaded with amiodarone and infusion was started. After this, the patient become acutely hypoxemic requiring emergent intubation. Please refer to the emergency room physician documentation for additional details regarding the decompensation. When I came to evaluate patient, the patient was recently intubated, sedated. No additional information is available from the patient due to his clinical condition. Review of systems is unobtainable. Critical care medicine is consulted to evaluate manage his acute hypoxic respiratory failure along with his acute supraventricular tachycardia. 08/30: Patient remains intubated and sedated. FiO2 down to 0.5. Patient continues to be on amiodarone infusion and heparin drip. Sedation achieved with propofol and fentanyl. Patient remains hypothermic requiring Gracia hugger, urine output 350 mL's documented since admission. 08/31: No events over the night. Patient remains intubated and sedated. Hemoglobin more stable posttransfusion. Hypothermia resolved, T-max of 100.3. Urine output remains low, 635 mL's over the last 24 hours. Oxygenation is improved. No family present at bedside. Patient remains in sinus rhythm, on amiodarone infusion. No report of melena, hematochezia or coffee-ground aspirate from NG tube. Morning chest x-ray reviewed, worsening infiltrates over the right thorax, unchanged consolidation over the left. 09/01: Afebrile. Patient was extubated yesterday afternoon and emergently intubated 1030 last night secondary to hypoxemic respiratory failure. This x- ray pending this a.m.. The patient also was noted to have severe metabolic acidosis and sodium bicarbonate infusion was initiated. Patient noted to have Pseudomonas, and placed on Zosyn. Patient continues to have leukocytosis with worsening pneumonia ID has been consulted appreciate recommendations. Patient previously DNR palliative has been consulted up on hypoxemic respiratory failure patient was noted to request intubation at that time. Palliative care consult pending. Patient continues on amiodarone infusion now in sinus rhythm. Amiodarone infusion discontinued the patient continued on metoprolol and Cardizem home medications. Hemoglobin appears stable status post 2 units transfusion 48 hours ago. Will do serial H&H's aspirin reinitiated will hold Plavix for now, and continue to follow. Subcu heparin initiated. 09/02: Afebrile. Hemoglobin stable for the last 24 hours. Plan to restart tube feeds this a.m.. Metabolic acidosis resolved, patient's sodium bicarbonate discontinued. Patient requiring increasing FiO2 requirements during the night , now at 100% ABG pending. This am chest x-ray worsening. 09/03: Late entry note patient seen at 8:15 AM .afebrile. Chest x-ray continues to worsen. FiO2 requirement slightly decreased we will attempt CPAP trials today. 09/04: Afebrile. patient awake and following commands this a.m. Currently on CPAP trials. FiO2 weaned to 45% 09/05: Afebrile. Patient tolerating CPAP trials. She noted to have elevated blood glucose level secondary methylprednisolone. Chest x-ray now improving methylprednisolone taper initiated. Patient noted to still have episodes of hypertension Cardizem increased to 90 mg every 6 hours. 09/06: Patient currently in a flutter. Received adenosine 12 mg 1 which feels a flutter. Echocardiogram CPK and troponin ordered. TSH normal during this hospitalization. Potassium magnesium both normalized. Arousable and follows commands. Subjective 09/07: Patient is currently on PSV trial 20/8 ~35%. Patient oscillating on CODE STATUS. Tolerating tube feeds. Remains in normal sinus rhythm on amiodarone drip. 09/08: No events over the night. CPAP trial was attempted this morning patient went into A. fib with RVR after 15 minutes. Patient was switched back to full support, and converted to sinus rhythm. He continues to be on amiodarone infusion and heparin drip. He is lethargic but easily arousable able to follow some commands. FiO2 at 0.5 and PEEP at 8. T-max of 99. 09/09: No events over the night. T-max of 98.9. Patient remains intubated and sedated, on propofol and fentanyl. CPAP trial attempted this morning again and patient went into A. fib with RVR and hypoxia, therefore he was placed back on PRVC. No family present at bedside. Urine output of 2350 mL over the last 24 hours. He is +22 L since admission charting is correct. 09/10: No events over the night. This morning patient is in A. fib with RVR heart rate 150, hemodynamically stable. Patient had excellent response to diuresis, urine output greater than 4 L over the last 24 hours. T-max of 98.5. No family present at bedside. Morning chest x-ray reviewed. 09/11: Patient did well over the night. He remains in sinus rhythm on amiodarone infusion. Patient was started on Lasix drip yesterday with great urine output. Patient is negative approximately 2.5 L over the last 24 hours. Afebrile, with Tmax of 99.9. Oxygenation down to 40%. 09/12: No events over the night. Patient remains afebrile with a T-max of 99.4. Patient continues to be on Lasix drip with good urine output however he still on positive fluid balance over the last 24 hours. Lasix drip increased to 7.5 mg/h this morning. He continues to be on amiodarone infusion, and sedation with propofol and fentanyl. Patient is awake, weak, following some commands. Oxygenation not significantly improved, still requiring PEEP of 7 and 50% O2. Morning chest x-ray reviewed, ET tube is in good position, no significant change compared to 2 days ago. 09/13: No events over the night. Patient remains intubated and sedated. Afebrile over the night with a T-max of 98.9. -1.5 L over the last 24 hours. 09/14 Patient is intubated and sedated with Fentanyl drip. On Amio and Lasix drips. UOP: 4.1 L overnight. Objective Vital Signs Date Time Temp Pulse Resp B/P (MAP) Pulse Ox O2 Delivery O2 Flow Rate FiO2 09/14/17 08:23 98 40 09/14/17 06:00 57 09/14/17 04:00 98.3 18 156/82 (106) 09/13/17 19:00 Mechanical Ventilator Intake and Output 09/14/17 09/14/17 09/15/17 08:00 16:00 00:00 Intake Total 1158 ml Output Total 4100 ml Balance -2942 ml Result Diagram: 09/14/17 0443 09/14/17 0443 Other Results Laboratory Tests Test 09/13/17 18:57 09/14/17 04:43 Potassium Level 3.2 MEQ/L 2.8 MEQ/L White Blood Count 16.3 TH/MM3 Red Blood Count 3.96 MIL/MM3 Hemoglobin 12.1 GM/DL Hematocrit 35.3 % Mean Corpuscular Volume 89.3 FL Mean Corpuscular Hemoglobin 30.5 PG Mean Corpuscular Hemoglobin Concent 34.2 % Red Cell Distribution Width 19.2 % Platelet Count 175 TH/MM3 Mean Platelet Volume 9.1 FL Neutrophils (%) (Auto) 90.0 % Lymphocytes (%) (Auto) 1.7 % Monocytes (%) (Auto) 8.1 % Eosinophils (%) (Auto) 0.0 % Basophils (%) (Auto) 0.2 % Neutrophils # (Auto) 14.6 TH/MM3 Lymphocytes # (Auto) 0.3 TH/MM3 Monocytes # (Auto) 1.3 TH/MM3 Eosinophils # (Auto) 0.0 TH/MM3 Basophils # (Auto) 0.0 TH/MM3 CBC Comment AUTO DIFF Differential Total Cells Counted 100 Neutrophils % (Manual) 78 % Band Neutrophils % 12 % Lymphocytes % 3 % Monocytes % 5 % Neutrophils # (Manual) 15.0 TH/MM3 Metamyelocytes 2 % Differential Comment FINAL DIFF MANUAL Platelet Estimate NORMAL Platelet Morphology Comment NORMAL Acanthocytes OCC Blood Urea Nitrogen 42 MG/DL Creatinine 1.03 MG/DL Random Glucose 102 MG/DL Total Protein 6.9 GM/DL Albumin 3.2 GM/DL Calcium Level 8.5 MG/DL Phosphorus Level 3.7 MG/DL Magnesium Level 2.2 MG/DL Alkaline Phosphatase 83 U/L Aspartate Amino Transf (AST/SGOT) 16 U/L Alanine Aminotransferase (ALT/SGPT) 25 U/L Total Bilirubin 0.8 MG/DL Sodium Level 140 MEQ/L Chloride Level 95 MEQ/L Carbon Dioxide Level 31.6 MEQ/L Anion Gap 13 MEQ/L Estimat Glomerular Filtration Rate 73 ML/MIN Imaging Last Impressions Chest X-Ray 09/14/17 0600 Signed Impressions: Service Date/Time: Thursday, September 14, 2017 05:14 - CONCLUSION: 1. Left basilar airspace disease with small to moderate left effusion. Marked improvement in right basilar airspace disease since September 12. David Jay MD Abdomen X-Ray 08/31/17 0000 Signed Impressions: Service Date/Time: Thursday, August 31, 2017 20:34 - CONCLUSION: 1. Nasogastric tube tip in distal stomach. David Jay MD CT Angiography 08/29/17 1849 Signed Impressions: Service Date/Time: Tuesday, August 29, 2017 19:36 - CONCLUSION: 1. Multilobar consolidation. 2. No evidence for pulmonary embolism. 3. Extensive coronary calcifications Pk Bae MD Objective Remarks General - elderly gentleman, intubated, sedated, arousable, ill-appearing HEENT - pupils are equal, reactive, sclerae are anicteric, neck is supple, no rigidity, no JVD, orally intubated, + NGT CV - regular S1 and S2, no murmurs Chest - coarse breath sounds b/l but improved, good air entry, no wheezes Abdomen - remains soft, bowel sounds present, nontender, not distended Extremities - 2+ edema over both lower extremities, improved, and 3+ edema over upper extremities, improved, strong peripheral pulses Neuro - pupils equal and reactive, opens eyes to voice stimuli, follows some commands, moves all extremities but he remains very weak A/P Problem List: (1) OBED (acute kidney injury) ICD Code: N17.9 - Acute kidney failure, unspecified (2) Severe protein-calorie malnutrition ICD Code: E43 - Unspecified severe protein-calorie malnutrition Status: Chronic (3) Shortness of breath ICD Code: R06.02 - Shortness of breath Status: Acute (4) Tobacco abuse ICD Code: Z72.0 - Tobacco use Status: Chronic (5) Paroxysmal A-fib ICD Code: I48.0 - Paroxysmal atrial fibrillation Status: Chronic (6) Atrial fibrillation with RVR ICD Code: I48.91 - Unspecified atrial fibrillation Status: Resolved (7) PNA (pneumonia) ICD Code: J18.9 - Pneumonia, unspecified organism (8) COPD (chronic obstructive pulmonary disease) ICD Code: J44.9 - Chronic obstructive pulmonary disease, unspecified (9) Lung cancer ICD Code: C34.90 - Malignant neoplasm of unspecified part of unspecified bronchus or lung (10) Debility ICD Code: R53.81 - Other malaise Status: Chronic (11) Pain ICD Code: R52 - Pain, unspecified Status: Chronic (12) Lung consolidation ICD Code: J18.1 - Lobar pneumonia, unspecified organism Status: Acute (13) Acute respiratory failure with hypoxia and hypercarbia ICD Code: J96.01 - Acute respiratory failure with hypoxia; J96.02 - Acute respiratory failure with hypercapnia Assessment and Plan 1. Acute hypoxic and hypercapnic respiratory failure -unchanged 2. Pseudomonas pneumonia -patient remains afebrile 3. Acute COPD exacerbation -resolved 4. Lung cancer currently undergoing radiation therapy and chemotherapy prior to hospitalization 5. Atrial fibrillation with rapid ventricular response -multiple recurrences during the admission, currently in sinus rhythm 6. Elevated troponin - trending down 7. Acute blood loss anemia -reoccurred, this morning's hemoglobin at 6.3. No clear evidence of bleed, no melena no hematemesis no hematochezia 8. OBED -resolved Plan Neuro: On Fentanyl infusion for sedation. Daily sedation vacation Pulm: Continue with vent support keep sats >92% On PRVC RR 18, TV 500, PEEP:7, FIO2: 40% Vent bundle and bronchodilators. SBT daily as moise On Solumederol 40mg daily CV: Monitor HR and BP keep MAP>65mmHg Hold Lopressor and amiodarone infusion at 0.5 for bradycardia) Increase Hydralazine 50mg Q8 for BP control, On Isordil 10mg Q8 Continue statin : Monitor renal function, I/O's, electrolytes replacement per protocol d/c Lasix, for K replacement today GI: On Jevity 1.5 advance to goal rate 50ml/hr, ID: Abx per ID ( On levofloxacin, add Zosyn )Monitor for signs of infections ( Fever, WBC) Sputum cx 08/30, 09/11: Pseudomonas Endo: SSI for glycemic Heme: Monitor CBC, Hemeoccult positive GI prophylaxis DVT prophylaxis with SCDs. Heparin on hold due to acute anemia Level 3 Problem Qualifiers (1) PNA (pneumonia): Qualified Codes: J18.1 - Lobar pneumonia, unspecified organism Rachel Otero MD September 14, 2017 09:42
[2017-09-14] MEDS: CHLORHEXIDINE 0.12% (ORAL KIT) 15 ML CUP MT SCH ×2 (09:44→21:19)
[2017-09-14] MEDS: PROPOFOL 1000 MG/100 ML INJ 100 ML IV PRN (09:44)
[2017-09-14] MEDS: PIPERACIL-TAZO 4.5 GM PREMIX 100 ML IV SCH ×3 (11:17→23:35)
[2017-09-14] MEDS: LEVOFLOXACIN 250 MG PREMIX INJ 50 ML IV SCH (13:16)
--- NOTE | 2017-09-14 13:47 | HHI.IDPN ---
Note Infectious Disease Note Patient remains on the ventilator. He is receiving sedation. Awake and alert. Responsive. Afebrile. Has not tolerated CPAP. Presented to the emergency department on 08/29 with respiratory symptoms. Intubated in the ED. PAST MEDICAL HISTORY: Left lung cancer, being treated with chemotherapy and radiation, coronary artery disease, peripheral arterial disease, COPD, hypertension, anxiety, depression, bilateral cataract surgery, recent pneumonia due to Pseudomonas in 04/2017 and 07/2017, history of iliac artery bypass surgery. ALLERGIES: NO KNOWN DRUG ALLERGIES. Antibiotics: Piperacillin/tazobactam. Levaquin. Objective: Vital Signs Date Time Temp Pulse Resp B/P (MAP) Pulse Ox O2 Delivery O2 Flow Rate FiO2 09/14/17 12:22 96 40 09/14/17 12:21 40 09/14/17 10:00 59 09/14/17 08:23 98 40 09/14/17 08:00 56 09/14/17 08:00 97.8 56 139/79 (99) 98 09/14/17 08:00 40 09/14/17 07:00 97 Mechanical Ventilator 40 09/14/17 06:00 57 09/14/17 04:04 97 40 09/14/17 04:00 58 09/14/17 04:00 40 09/14/17 04:00 98.3 58 18 156/82 (106) 97 09/14/17 03:37 59 162/84 09/14/17 02:00 68 09/14/17 00:14 98 40 09/14/17 00:00 97.9 60 18 165/88 (113) 98 09/14/17 00:00 60 09/14/17 00:00 40 09/13/17 22:00 71 09/13/17 20:20 99 40 09/13/17 20:00 98.7 61 18 177/90 (119) 98 09/13/17 20:00 40 09/13/17 20:00 61 09/13/17 19:00 98 Mechanical Ventilator 40 09/13/17 18:00 58 09/13/17 16:03 98 40 09/13/17 16:00 40 09/13/17 16:00 98.5 67 20 165/81 (109) 98 09/13/17 16:00 67 09/13/17 14:00 72 Laboratory Tests Test 09/13/17 03:42 09/14/17 04:43 White Blood Count 13.1 TH/MM3 16.3 TH/MM3 Red Blood Count 3.38 MIL/MM3 3.96 MIL/MM3 Hemoglobin 10.4 GM/DL 12.1 GM/DL Hematocrit 30.3 % 35.3 % Mean Corpuscular Volume 89.4 FL 89.3 FL Mean Corpuscular Hemoglobin 30.6 PG 30.5 PG Mean Corpuscular Hemoglobin Concent 34.2 % 34.2 % Red Cell Distribution Width 18.7 % 19.2 % Platelet Count 153 TH/MM3 175 TH/MM3 Mean Platelet Volume 9.1 FL 9.1 FL Neutrophils (%) (Auto) 89.2 % 90.0 % Lymphocytes (%) (Auto) 1.9 % 1.7 % Monocytes (%) (Auto) 8.8 % 8.1 % Eosinophils (%) (Auto) 0.0 % 0.0 % Basophils (%) (Auto) 0.1 % 0.2 % Neutrophils # (Auto) 11.7 TH/MM3 14.6 TH/MM3 Lymphocytes # (Auto) 0.3 TH/MM3 0.3 TH/MM3 Monocytes # (Auto) 1.2 TH/MM3 1.3 TH/MM3 Eosinophils # (Auto) 0.0 TH/MM3 0.0 TH/MM3 Basophils # (Auto) 0.0 TH/MM3 0.0 TH/MM3 CBC Comment AUTO DIFF AUTO DIFF Differential Total Cells Counted 100 100 Neutrophils % (Manual) 82 % 78 % Band Neutrophils % 7 % 12 % Lymphocytes % 4 % 3 % Monocytes % 5 % 5 % Neutrophils # (Manual) 11.9 TH/MM3 15.0 TH/MM3 Myelocytes 2 % Differential Comment FINAL DIFF MANUAL FINAL DIFF MANUAL Platelet Estimate NORMAL NORMAL Platelet Morphology Comment NORMAL NORMAL Stomatocytes 1+ Keratocytes 1+ Metamyelocytes 2 % Acanthocytes OCC Laboratory Tests Test 09/12/17 14:39 09/12/17 18:48 09/12/17 21:47 09/13/17 03:42 Blood Urea Nitrogen 40 MG/DL 42 MG/DL 40 MG/DL Creatinine 1.17 MG/DL 1.15 MG/DL 1.13 MG/DL Random Glucose 169 MG/DL 195 MG/DL 166 MG/DL Calcium Level 7.7 MG/DL 7.7 MG/DL 7.9 MG/DL Phosphorus Level 3.8 MG/DL 3.7 MG/DL 3.6 MG/DL Magnesium Level 2.0 MG/DL 2.0 MG/DL 1.9 MG/DL Sodium Level 140 MEQ/L 141 MEQ/L 141 MEQ/L Potassium Level 4.4 MEQ/L 3.6 MEQ/L 3.5 MEQ/L 3.4 MEQ/L Chloride Level 97 MEQ/L 96 MEQ/L 95 MEQ/L Carbon Dioxide Level 35.2 MEQ/L 35.3 MEQ/L 36.2 MEQ/L Anion Gap 8 MEQ/L 10 MEQ/L 10 MEQ/L Estimat Glomerular Filtration Rate 63 ML/MIN 64 ML/MIN 66 ML/MIN Total Protein 6.1 GM/DL Albumin 3.0 GM/DL Alkaline Phosphatase 87 U/L Aspartate Amino Transf (AST/SGOT) 14 U/L Alanine Aminotransferase (ALT/SGPT) 23 U/L Total Bilirubin 0.6 MG/DL Test 09/13/17 18:57 09/14/17 04:43 Potassium Level 3.2 MEQ/L 2.8 MEQ/L Blood Urea Nitrogen 42 MG/DL Creatinine 1.03 MG/DL Random Glucose 102 MG/DL Total Protein 6.9 GM/DL Albumin 3.2 GM/DL Calcium Level 8.5 MG/DL Phosphorus Level 3.7 MG/DL Magnesium Level 2.2 MG/DL Alkaline Phosphatase 83 U/L Aspartate Amino Transf (AST/SGOT) 16 U/L Alanine Aminotransferase (ALT/SGPT) 25 U/L Total Bilirubin 0.8 MG/DL Sodium Level 140 MEQ/L Chloride Level 95 MEQ/L Carbon Dioxide Level 31.6 MEQ/L Anion Gap 13 MEQ/L Estimat Glomerular Filtration Rate 73 ML/MIN Microbiology Date/Time Source Procedure Growth Status 09/11/17 18:30 Stool Stool Stool Occult Blood (ANDREW) - Final HEMOCCULT POSITIVE Complete 09/11/17 17:30 Sputum Endotracheal Gram Stain - Final Resulted 09/11/17 17:30 Sputum Culture - Preliminary Pseudomonas Species Resulted Microbiology Date/Time Source Procedure Growth Status 09/11/17 18:30 Stool Stool Stool Occult Blood (ANDREW) - Final HEMOCCULT POSITIVE Complete 09/11/17 17:30 Sputum Endotracheal Gram Stain - Final Resulted 09/11/17 17:30 Sputum Culture - Preliminary Pseudomonas Species Resulted IMAGING: Chest X-Ray 09/14/17 0600 Signed Impressions: Service Date/Time: Thursday, September 14, 2017 05:14 - CONCLUSION: 1. Left basilar airspace disease with small to moderate left effusion. Marked improvement in right basilar airspace disease since September 12. David Jay MD Chest X-Ray 09/12/17 06 Signed Impressions: Service Date/Time: Tuesday, September 12, 2017 06:06 - CONCLUSION: 1. Increased consolidation at the left lung base. 2. Stable infiltrate in the right lung. Willy Pantoja MD Chest X-Ray 09/10/17 06 Signed Impressions: Service Date/Time: September 03:12 - CONCLUSION: 1. Interval improvement in consolidative opacity in the left lung base with focal consolidation remaining in the left perihilar region. 2. More hazy diffuse opacity remains in the right lung. Willy Pantoja MD Chest X-Ray 09/07/17 06 Signed Impressions: Service Date/Time: Thursday, September 07, 2017 04:21 - CONCLUSION: Increasing consolidation left lower lobe a combination of airspace disease and pleural effusion. Luis Castro MD Chest X-Ray 09/06/17 06 Signed Impressions: Service Date/Time: Wednesday, September 06, 2017 03:03 - CONCLUSION: Improving aeration Dmitri Mohan MD Chest X-Ray 09/02/17 0000 Signed Impressions: Service Date/Time: Saturday, September 02, 2017 06:32 - CONCLUSION: Bilateral airspace disease with interval worsening in the left base. Possible developing left-sided effusion. Jaret Crouch MD Abdomen X-Ray 08/31/17 0000 Signed Impressions: Service Date/Time: Thursday, August 31, 2017 20:34 - CONCLUSION: 1. Nasogastric tube tip in distal stomach. David Jay MD CT Angiography 08/29/17 1849 Signed Impressions: Service Date/Time: Tuesday, August 29, 2017 19:36 - CONCLUSION: 1. Multilobar consolidation. 2. No evidence for pulmonary embolism. 3. Extensive coronary calcifications Pk Bae MD PHYSICAL EXAMINATION: GENERAL: On the ventilator. No acute distress HEENT: Pupils reactive to light. No icterus. Moist oral mucosa. NECK: No swelling. No adenopathy. LUNGS: Rhonchi at the bases. HEART: Regular rate and rhythm. Slight systolic murmur at the left sternal border. ABDOMEN: Bowel sounds present, soft. EXTREMITIES: Ecchymosis at the upper extremities. Decreased edema at the upper extremities. No edema of the lower extremities. No clubbing or cyanosis. SKIN: No diffuse rash. NEUROLOGIC: Responds and move the extremities. Not able to fully assess. PSYCHIATRIC: Unable to assess. IMPRESSION: 1. Bilateral pneumonia due to Pseudomonas. Last sputum culture from 09/12 has light growth of Pseudomonas. Appears to be improving. 2. Acute respiratory failure. Ventilator dependent. 3. History of lung cancer. RECOMMENDATIONS: 1. Continue piperacillin/tazobactam plan on giving a 21 day course until 09/20. 2. Continue the Levaquin plan on giving 21 day course until 09/20. 3. Continue to monitor clinical status. Herve Zarate MD September 14, 2017 13:47
[2017-09-14] MEDS: hydrALAZINE HCL 20 MG/ML VIAL IV PUSH PRN (17:35)
[2017-09-14] MEDS ORDERED: AMIODARONE HCL 150 MG/3 ML VIAL ONE (21:35)
[2017-09-14] MEDS ORDERED: AMIODARONE HCL 150 MG/3 ML VIAL IV ONE (21:35)
[2017-09-14] MEDS ORDERED: AMIODARONE INJ 450 MG in D5W (EXCEL BAG) INJ 241 ML IV PRN (21:45)
[2017-09-14] MEDS ORDERED: AMIODARONE 150 MG/D5W 97 ML BOLUS 10 MINUTES IV ONE ×2 (21:45)
[2017-09-15] VITALS (18 sets, daily range): BP systolic 165–194; BP diastolic 81–116; PULSE 69–84; RESP 18–20; TEMP 97.2–98.4; O2SAT 92–99
[2017-09-15] MEDS: ONDANSETRON HCL 4 MG/2 ML VIAL IV PUSH PRN (00:22)
[2017-09-15] MEDS: hydrALAZINE HCL 20 MG/ML VIAL IV PUSH PRN ×3 (01:47→22:34)
[2017-09-15] MEDS: LABETALOL HCL 100 MG/20 ML VIAL IV PUSH PRN ×3 (03:03→18:23)
[2017-09-15] MEDS: CHLORHEXIDINE GLUCONATE 2 % 1 PACK (2 CLOTHS) TOP SCH (04:00)
[2017-09-15 05:08] LABS: AUTOMATED NEUTROPHIL # 17.3 TH/MM3 (1.8-7.7); HEMOGLOBIN 11.6 GM/DL (13.0-17.0); LYMPHOCYTE # 0.2 TH/MM3 (1.0-4.8); MEAN CELL VOLUME 90.6 FL (80.0-100.0); MEAN CORPUSCULAR HEMOGLOBIN 30.1 PG (27.0-34.0); MEAN CORPUSCULAR HGB CONC 33.2 % (32.0-36.0); MEAN PLATELET VOLUME 8.9 FL (7.0-11.0); MONO % 6.3 % (0.0-8.0); MONOCYTE # 1.2 TH/MM3 (0-0.9); NEUT % 92.7 % (16.0-70.0); PLATELET COUNT 179 TH/MM3 (150-450); RED BLOOD COUNT 3.86 MIL/MM3 (4.50-5.90); RED CELL DISTRIBUTION WIDTH 19.3 % (11.6-17.2); WHITE BLOOD COUNT 18.7 TH/MM3 (4.0-11.0)
[2017-09-15] MEDS: PIPERACIL-TAZO 4.5 GM PREMIX 100 ML IV SCH ×4 (05:17→22:54)
[2017-09-15] MEDS: hydrALAZINE HCL 25 MG TAB PO SCH ×3 (05:17→22:54)
[2017-09-15] MEDS: ISOSORBIDE DINITRATE 10 MG TAB PO SCH ×3 (05:18→22:54)
[2017-09-15] MEDS: ARTIFICIAL TEARS OPTH SOLN 15 ML BTL EACH EYE SCH ×3 (05:18→22:00)
[2017-09-15] MEDS: fentaNYL DRIP 250 ML IV PRN (05:22)
[2017-09-15] MEDS: INSULIN NovoLIN REGULAR SUPPLEMENTAL SCALE SQ SCH ×4 (05:49→18:00)
[2017-09-15 06:21] LABS: ALBUMIN 3.1 GM/DL (3.4-5.0); ALKALINE PHOSPHATASE 83 U/L (45-117); ALT (GPT) 21 U/L (12-78); AST (GOT) 14 U/L (15-37); BICARBONATE 26.5 MEQ/L (21.0-32.0); BLOOD UREA NITROGEN 41 MG/DL (7-18); CALCIUM 8.5 MG/DL (8.5-10.1); CHLORIDE 100 MEQ/L (98-107); CREATININE 0.98 MG/DL (0.60-1.30); GLOMERULAR FILTRATION RATE 78 ML/MIN (>89); GLUCOSE,RANDOM 109 MG/DL (74-106); MAGNESIUM 2.3 MG/DL (1.5-2.5); PHOSPHORUS 3.9 MG/DL (2.5-4.9); SODIUM (NA) 139 MEQ/L (136-145); TOTAL PROTEIN 6.5 GM/DL (6.4-8.2)
[2017-09-15] MEDS: AMIODARONE INJ 450 MG in SODIUM CHLOR 0.9% (EXCEL) INJ 241 ML IV PRN ×2 (06:46→23:48)
[2017-09-15 08:05] LABS: BANDS 12 % (0-6); METAMYELOCYTES 1 % (0-1); MONOCYTES 5 % (0-8); NEUTROPHIL # MANUAL DIFF 17.8 TH/MM3 (1.8-7.7); POLYS (SEG NEUTROPHILS) 82 % (16-70)
[2017-09-15] MEDS: POTASSIUM CHLOR 20 MEQ PREMIX 100 ML IV PRN ×4 (08:13→14:44)
[2017-09-15] MEDS: LACTULOSE SYRUP 20 GM/30 ML CUP PO SCH (08:14)
[2017-09-15] MEDS: PRAVASTATIN SOD 10 MG TAB PO SCH (08:14)
[2017-09-15] MEDS: LANSOPRAZOLE SOLUTAB 30 MG TAB NG SCH (08:14)
[2017-09-15] MEDS: METOPROLOL TARTRATE 50 MG TAB PO SCH ×2 (08:14→22:54)
[2017-09-15] MEDS: DOCUSATE SODIUM 50 MG/SENNA 8.6 MG TAB PO SCH ×2 (08:14→22:54)
[2017-09-15] MEDS: methylPREDNISolone SOD SUCC 40 MG/1 ML VIAL IV PUSH SCH (08:15)
[2017-09-15] MEDS: CHLORHEXIDINE 0.12% (ORAL KIT) 15 ML CUP MT SCH ×2 (08:16→20:00)
--- NOTE | 2017-09-15 08:45 | HHI.CCPN ---
Subjective Remarks/Hospital Course 08/29: This is a 61-year-old male with a history of lung cancer undergoing current chemotherapy and radiation who was recently admitted on 07/19 for aspiration pneumonia. During that admission he did have episodes of paroxysmal atrial fibrillation and had an echo from 04/2017 showing an EF of 50-55%. He represents today to the emergency department with acute shortness of breath since last night. Per the ER documentation, he denies any coughing, fever, chills, or other recent symptoms or changes other than the new dyspnea. In the emergency department he was found to be in A. fib with RVR. This initially converted to sinus rhythm 1 after diltiazem 20 mg IV bolus, but then very quickly went back into atrial for ablation with rapid ventricular response. 2 doses of adenosine were not able to convert it. The patient was loaded with amiodarone and infusion was started. After this, the patient become acutely hypoxemic requiring emergent intubation. Please refer to the emergency room physician documentation for additional details regarding the decompensation. When I came to evaluate patient, the patient was recently intubated, sedated. No additional information is available from the patient due to his clinical condition. Review of systems is unobtainable. Critical care medicine is consulted to evaluate manage his acute hypoxic respiratory failure along with his acute supraventricular tachycardia. 08/30: Patient remains intubated and sedated. FiO2 down to 0.5. Patient continues to be on amiodarone infusion and heparin drip. Sedation achieved with propofol and fentanyl. Patient remains hypothermic requiring Gracia hugger, urine output 350 mL's documented since admission. 08/31: No events over the night. Patient remains intubated and sedated. Hemoglobin more stable posttransfusion. Hypothermia resolved, T-max of 100.3. Urine output remains low, 635 mL's over the last 24 hours. Oxygenation is improved. No family present at bedside. Patient remains in sinus rhythm, on amiodarone infusion. No report of melena, hematochezia or coffee-ground aspirate from NG tube. Morning chest x-ray reviewed, worsening infiltrates over the right thorax, unchanged consolidation over the left. 09/01: Afebrile. Patient was extubated yesterday afternoon and emergently intubated 1030 last night secondary to hypoxemic respiratory failure. This x- ray pending this a.m.. The patient also was noted to have severe metabolic acidosis and sodium bicarbonate infusion was initiated. Patient noted to have Pseudomonas, and placed on Zosyn. Patient continues to have leukocytosis with worsening pneumonia ID has been consulted appreciate recommendations. Patient previously DNR palliative has been consulted up on hypoxemic respiratory failure patient was noted to request intubation at that time. Palliative care consult pending. Patient continues on amiodarone infusion now in sinus rhythm. Amiodarone infusion discontinued the patient continued on metoprolol and Cardizem home medications. Hemoglobin appears stable status post 2 units transfusion 48 hours ago. Will do serial H&H's aspirin reinitiated will hold Plavix for now, and continue to follow. Subcu heparin initiated. 09/02: Afebrile. Hemoglobin stable for the last 24 hours. Plan to restart tube feeds this a.m.. Metabolic acidosis resolved, patient's sodium bicarbonate discontinued. Patient requiring increasing FiO2 requirements during the night , now at 100% ABG pending. This am chest x-ray worsening. 09/03: Late entry note patient seen at 8:15 AM .afebrile. Chest x-ray continues to worsen. FiO2 requirement slightly decreased we will attempt CPAP trials today. 09/04: Afebrile. patient awake and following commands this a.m. Currently on CPAP trials. FiO2 weaned to 45% 09/05: Afebrile. Patient tolerating CPAP trials. She noted to have elevated blood glucose level secondary methylprednisolone. Chest x-ray now improving methylprednisolone taper initiated. Patient noted to still have episodes of hypertension Cardizem increased to 90 mg every 6 hours. 09/06: Patient currently in a flutter. Received adenosine 12 mg 1 which feels a flutter. Echocardiogram CPK and troponin ordered. TSH normal during this hospitalization. Potassium magnesium both normalized. Arousable and follows commands. Subjective 09/07: Patient is currently on PSV trial 20/8 ~35%. Patient oscillating on CODE STATUS. Tolerating tube feeds. Remains in normal sinus rhythm on amiodarone drip. 09/08: No events over the night. CPAP trial was attempted this morning patient went into A. fib with RVR after 15 minutes. Patient was switched back to full support, and converted to sinus rhythm. He continues to be on amiodarone infusion and heparin drip. He is lethargic but easily arousable able to follow some commands. FiO2 at 0.5 and PEEP at 8. T-max of 99. 09/09: No events over the night. T-max of 98.9. Patient remains intubated and sedated, on propofol and fentanyl. CPAP trial attempted this morning again and patient went into A. fib with RVR and hypoxia, therefore he was placed back on PRVC. No family present at bedside. Urine output of 2350 mL over the last 24 hours. He is +22 L since admission charting is correct. 09/10: No events over the night. This morning patient is in A. fib with RVR heart rate 150, hemodynamically stable. Patient had excellent response to diuresis, urine output greater than 4 L over the last 24 hours. T-max of 98.5. No family present at bedside. Morning chest x-ray reviewed. 09/11: Patient did well over the night. He remains in sinus rhythm on amiodarone infusion. Patient was started on Lasix drip yesterday with great urine output. Patient is negative approximately 2.5 L over the last 24 hours. Afebrile, with Tmax of 99.9. Oxygenation down to 40%. 09/12: No events over the night. Patient remains afebrile with a T-max of 99.4. Patient continues to be on Lasix drip with good urine output however he still on positive fluid balance over the last 24 hours. Lasix drip increased to 7.5 mg/h this morning. He continues to be on amiodarone infusion, and sedation with propofol and fentanyl. Patient is awake, weak, following some commands. Oxygenation not significantly improved, still requiring PEEP of 7 and 50% O2. Morning chest x-ray reviewed, ET tube is in good position, no significant change compared to 2 days ago. 09/13: No events over the night. Patient remains intubated and sedated. Afebrile over the night with a T-max of 98.9. -1.5 L over the last 24 hours. 09/14 Patient is intubated and sedated with Fentanyl drip. On Amio and Lasix drips. UOP: 4.1 L overnight. 09/15 Patient remains intubated and sedated. off Lasix drip. TF held for emesis/ high residuals. Patient was in Afib with RVR and restarted on Amio drip overnight. (Amio was held during day yesterday for bradycardia) Objective Vital Signs Date Time Temp Pulse Resp B/P (MAP) Pulse Ox O2 Delivery O2 Flow Rate FiO2 09/15/17 07:32 98 40 09/15/17 06:46 83 179/98 09/15/17 04:00 98.0 09/15/17 00:00 20 09/14/17 19:00 Mechanical Ventilator Intake and Output 09/15/17 09/15/17 09/16/17 08:00 16:00 00:00 Intake Total 985 ml Output Total 1650 ml Balance -665 ml Result Diagram: 09/15/17 0423 09/15/17 0423 Other Results Laboratory Tests Test 09/14/17 20:34 09/15/17 04:23 Potassium Level 3.7 MEQ/L 2.8 MEQ/L White Blood Count 18.7 TH/MM3 Red Blood Count 3.86 MIL/MM3 Hemoglobin 11.6 GM/DL Hematocrit 35.0 % Mean Corpuscular Volume 90.6 FL Mean Corpuscular Hemoglobin 30.1 PG Mean Corpuscular Hemoglobin Concent 33.2 % Red Cell Distribution Width 19.3 % Platelet Count 179 TH/MM3 Mean Platelet Volume 8.9 FL Neutrophils (%) (Auto) 92.7 % Lymphocytes (%) (Auto) 1.0 % Monocytes (%) (Auto) 6.3 % Eosinophils (%) (Auto) 0.0 % Basophils (%) (Auto) 0.0 % Neutrophils # (Auto) 17.3 TH/MM3 Lymphocytes # (Auto) 0.2 TH/MM3 Monocytes # (Auto) 1.2 TH/MM3 Eosinophils # (Auto) 0.0 TH/MM3 Basophils # (Auto) 0.0 TH/MM3 CBC Comment AUTO DIFF Differential Total Cells Counted 100 Neutrophils % (Manual) 82 % Band Neutrophils % 12 % Monocytes % 5 % Neutrophils # (Manual) 17.8 TH/MM3 Metamyelocytes 1 % Differential Comment FINAL DIFF MANUAL Platelet Estimate NORMAL Platelet Morphology Comment NORMAL Blood Urea Nitrogen 41 MG/DL Creatinine 0.98 MG/DL Random Glucose 109 MG/DL Total Protein 6.5 GM/DL Albumin 3.1 GM/DL Calcium Level 8.5 MG/DL Phosphorus Level 3.9 MG/DL Magnesium Level 2.3 MG/DL Alkaline Phosphatase 83 U/L Aspartate Amino Transf (AST/SGOT) 14 U/L Alanine Aminotransferase (ALT/SGPT) 21 U/L Total Bilirubin 1.0 MG/DL Sodium Level 139 MEQ/L Chloride Level 100 MEQ/L Carbon Dioxide Level 26.5 MEQ/L Anion Gap 13 MEQ/L Estimat Glomerular Filtration Rate 78 ML/MIN Imaging Last Impressions Chest X-Ray 09/14/17 0600 Signed Impressions: Service Date/Time: Thursday, September 14, 2017 05:14 - CONCLUSION: 1. Left basilar airspace disease with small to moderate left effusion. Marked improvement in right basilar airspace disease since September 12. David Jay MD Abdomen X-Ray 08/31/17 0000 Signed Impressions: Service Date/Time: Thursday, August 31, 2017 20:34 - CONCLUSION: 1. Nasogastric tube tip in distal stomach. David Jay MD CT Angiography 08/29/17 1849 Signed Impressions: Service Date/Time: Tuesday, August 29, 2017 19:36 - CONCLUSION: 1. Multilobar consolidation. 2. No evidence for pulmonary embolism. 3. Extensive coronary calcifications Pk Bae MD Objective Remarks General - elderly gentleman, intubated, sedated, arousable, ill-appearing HEENT - pupils are equal, reactive, sclerae are anicteric, neck is supple, no rigidity, no JVD, orally intubated, + NGT CV - regular S1 and S2, no murmurs Chest - coarse breath sounds b/l but improved, good air entry, no wheezes Abdomen - remains soft, bowel sounds present, nontender, not distended Extremities - 2+ edema over both lower extremities, improved, and 3+ edema over upper extremities, improved, strong peripheral pulses Neuro - pupils equal and reactive, opens eyes to voice stimuli, follows some commands, moves all extremities but he remains very weak A/P Problem List: (1) OBED (acute kidney injury) ICD Code: N17.9 - Acute kidney failure, unspecified (2) Severe protein-calorie malnutrition ICD Code: E43 - Unspecified severe protein-calorie malnutrition Status: Chronic (3) Shortness of breath ICD Code: R06.02 - Shortness of breath Status: Acute (4) Tobacco abuse ICD Code: Z72.0 - Tobacco use Status: Chronic (5) Paroxysmal A-fib ICD Code: I48.0 - Paroxysmal atrial fibrillation Status: Chronic (6) Atrial fibrillation with RVR ICD Code: I48.91 - Unspecified atrial fibrillation Status: Resolved (7) PNA (pneumonia) ICD Code: J18.9 - Pneumonia, unspecified organism (8) COPD (chronic obstructive pulmonary disease) ICD Code: J44.9 - Chronic obstructive pulmonary disease, unspecified (9) Lung cancer ICD Code: C34.90 - Malignant neoplasm of unspecified part of unspecified bronchus or lung (10) Debility ICD Code: R53.81 - Other malaise Status: Chronic (11) Pain ICD Code: R52 - Pain, unspecified Status: Chronic (12) Lung consolidation ICD Code: J18.1 - Lobar pneumonia, unspecified organism Status: Acute (13) Acute respiratory failure with hypoxia and hypercarbia ICD Code: J96.01 - Acute respiratory failure with hypoxia; J96.02 - Acute respiratory failure with hypercapnia Assessment and Plan 1. Acute hypoxic and hypercapnic respiratory failure -unchanged 2. Pseudomonas pneumonia -patient remains afebrile 3. Acute COPD exacerbation -resolved 4. Lung cancer currently undergoing radiation therapy and chemotherapy prior to hospitalization 5. Atrial fibrillation with rapid ventricular response -multiple recurrences during the admission, currently in sinus rhythm 6. Elevated troponin - trending down 7. Acute blood loss anemia -reoccurred, this morning's hemoglobin at 6.3. No clear evidence of bleed, no melena no hematemesis no hematochezia 8. OBED -resolved Plan Neuro: On Fentanyl infusion for sedation. Daily sedation vacation Pulm: Continue with vent support keep sats >92% On PRVC RR 18, TV 500, PEEP:7, FIO2: 40% Vent bundle and bronchodilators. SBT daily as moise On Solumederol 40mg daily CV: Monitor HR and BP keep MAP>65mmHg On Amio drip for Afib with RVR On Hydralazine 50mg Q8 for BP control, On Isordil 10mg Q8, add Lopressor 25mg Q12 Continue statin Echo showed EF 40-45% : Monitor renal function, I/O's, electrolytes replacement per protocol GI: TF held for high residuals, emesis( Jevity 1.with goal rate 50ml/hr) Check KUB abdomen r/o ileus ID: Abx per ID ( On levofloxacin, Zosyn )Monitor for signs of infections ( Fever , WBC) Sputum cx 08/30, 09/11: Pseudomonas Endo: SSI for glycemic Heme: Monitor CBC, Hemeoccult positive GI prophylaxis DVT prophylaxis with SCDs. Heparin on hold due to acute anemia Level 3 Problem Qualifiers (1) PNA (pneumonia): Qualified Codes: J18.1 - Lobar pneumonia, unspecified organism Rachel Otero MD September 15, 2017 08:45
[2017-09-15] MEDS ORDERED: METOPROLOL TARTRATE 25 MG TAB PO SCH ×2 (09:00→21:00)
--- NOTE | 2017-09-15 09:32 | RADRPT ---
EXAM DATE/TIME: 09/15/2017 08:57 [facility] COMPARISON: No previous studies available for comparison. INDICATIONS : Evaluate for ileus. MEDICAL HISTORY : Hypertension. Chronic obstructive pulmonary disease. Carcinoma, lung. SURGICAL HISTORY : None. ENCOUNTER: Subsequent ACUITY: 2 weeks PAIN SCORE: 0/10 LOCATION: Abdomen. FINDINGS: Supine view of the abdomen was performed. The abdominal bowel gas pattern is normal. No abnormal ma sses, calcifications, or organomegaly is seen. The osseous structures are unremarkable. NG tube is p resent and the tip overlies expected location of the distal stomach. Atherosclerotic calcifications o f the aorta and iliac vessels are noted. Right iliac artery stent. CONCLUSION: Nonobstructive bowel gas pattern. Eloy Georges MD on September 15, 2017 at 9:29 Board Certified Radiologist. This report was verified electronically.
--- NOTE | 2017-09-15 09:49 | EKG ---
Date Performed: 09/14/2017 Time Performed: 21:37:14 PTAGE: 61 years EKG: Likely atrial flutter with rapid ventricular rate however Ventricular tachycardia cannot be completely excluded Intraventricular conduction delay Left axis deviation Inferior infarct - age und etermined Lateral ST-T changes may be due to myocardial ischemia Clinical correlation and a repeat ek g is needed. Abnormal ECG PREVIOUS TRACING : 09/06/2017 12.16 DOCTOR: Carolina Caraballo Interpretating Date/Time 09/15/2017 09:48:31
--- NOTE | 2017-09-15 11:50 | HHI.HCPN ---
Reason for visit a. To assist with evaluation and management of symptoms including: Shortness of breath, pain, debility b. To assist medical decision maker(s) with: better understanding of current medical conditions; weighing benefits/burdens of medical treatment options; making medical treatment decisions. Subjective/Interval History Patient seen today to follow-up on comfort on mechanical vent, as well as goals of treatment. He has remained on mechanical vent, had been planned to work towards medical extubation over the last several days however due to clinical condition has been unable to medically extubate. Has been on and off of amiodarone drip. Yesterday it was held for bradycardia however with A. fib RVR overnight requiring resumption of amiodarone. Has been on Lasix drip diuresing well this is been discontinued. Tube feeding held overnight due to high residual and some vomiting. Abdominal imaging today nonobstructive bowel gas pattern. WBC up trending 18.7. H&H stable. Hypokalemic 2.8, repletion per critical care replacement protocol. Patient seen in room no visitors present. Primary nurse Tito at bedside. He indicates no visitors have been in today. Patient is alert on fentanyl drip 100 mics an hour nursing placing on hold for CPAP trial. Patient nods to yes and no questions he does follow simple commands moving extremities. Nods No to pain. Unable to fully assess orientation via nodding only. Review with him hospital course, breathing tube etc. he nods to this though again difficult to assess if he fully understands. Discussed with primary nurse, critical care. Patient on ventilator day 15; if he is unable to tolerate medical extubation this week will likely require tracheostomy for continued ventilator support. . Family/friend interactions Call to cousin/HCS Dahiana Mayorga to provide update. Updated her on the last several days course, failed CPAP trials, amiodarone, abdomen/TF status. Review ongoing vent weaning trials-- today vent day #15, if unable to tolerate medical extubation may require tracheostomy /PEG to continue aggressive treatment. Explore he still remains at risk for other ongoing complications and setbacks related to his multiple conditions and now debilitated status in the ICU setting. She has questions if possibly the patient would understand better if things were written for him, she has been hopeful that he would be able to directly communicate his wishes. I did gently explore with her that we are unable to fully assess his ability to comprehend and make informed decisions. All questions answered. She is going to talk more to other family members in the coming days, and will remain in communication for updates to assist with further decision-making if patient unable to extubate and make his own decisions. Provided her with my contact information. . . Advance Directives Health Care Surrogate: Copy in medical record Advance Directive Specifics Date completed: [facility] -April 08, 2017 . Health Care Surrogate(s): [facility]- (Long time friend-15 yrs) Kay Rizvi [phone]- (July 2017) Alternate [facility]- Cousin- Dahiana Mayorga [phone] (will serve as HCS) . Objective Vital Signs Date Time Temp Pulse Resp B/P (MAP) Pulse Ox O2 Delivery O2 Flow Rate FiO2 09/15/17 08:00 76 09/15/17 08:00 40 09/15/17 08:00 98.4 76 18 185/105 (131) 98 09/15/17 07:32 98 40 09/15/17 07:00 98 Mechanical Ventilator 40 09/15/17 06:46 83 179/98 09/15/17 06:00 82 09/15/17 04:04 97 40 09/15/17 04:00 40 09/15/17 04:00 83 09/15/17 04:00 98.0 83 185/81 (115) 98 09/15/17 02:00 69 09/15/17 00:24 99 40 09/15/17 00:00 40 09/15/17 00:00 98.4 71 20 165/93 (117) 98 09/15/17 00:00 71 09/14/17 22:21 160 134/96 09/14/17 22:20 81 157/92 09/14/17 22:00 67 09/14/17 20:00 82 09/14/17 20:00 40 09/14/17 20:00 97.6 82 20 177/92 (120) 97 09/14/17 19:30 97 40 09/14/17 19:00 97 Mechanical Ventilator 40 09/14/17 18:00 85 09/14/17 16:11 98 40 09/14/17 16:00 61 09/14/17 16:00 40 09/14/17 16:00 98.5 61 162/94 (116) 98 09/14/17 14:00 66 09/14/17 12:22 96 40 09/14/17 12:21 40 09/14/17 12:00 61 09/14/17 12:00 40 09/14/17 12:00 98.0 61 169/94 (119) 96 Intake & Output 09/15/17 09/15/17 07:00 19:00 Intake Total 885 ml 100 ml Output Total 1800.0 ml Balance -915.0 ml 100 ml Intake IV Total 500 ml 100 ml Tube Feeding 85 ml Other 300 ml Output Urine Total 1350 ml Gastric Drainage Total 300 ml Tube Feeding Residual Discard 150.0 ml # Bowel Movements 2 Physical Exam CONSTITUTIONAL/GENERAL: This is a chronically ill patient, intubated, no apparent distress TUBES/LINES/DRAINS: ETT, NGT, PIV, SCDs, Dockery catheter, bilateral upper extremity soft restraints SKIN: No jaundice, rashes, or lesions. Skin tears to bilateral upper extremities. EYES: Pupils 3 mm, reactive. No scleral icterus. No injection or drainage. Fundi not examined. ENT: Intubated. Nose without bleeding or purulent drainage. Moist oral mucosa - oropharynx exam limited 2/2 ETT CARDIOVASCULAR: irregular,atrial fib bedside monitor. no JVD. RESPIRATORY/CHEST: Symmetric, unlabored respirations via mech vent. MD changed to CPAP. Clear, Diminished in the bases. No wheezes. GASTROINTESTINAL: Abdomen soft, non-tender, nondistended. NGT present,clamped. Bowel sounds present. GENITOURINARY: Without palpable bladder distension. Dockery catheter in place. MUSCULOSKELETAL: Extremities without clubbing, cyanosis. Trace Edema to all four extremities. No mottling or clubbing. NEUROLOGICAL: Intubated, alert. nods to some questions/follows simple commands w 4 extremities. unable to further assess orientation 2/2 intubation. spontaneously moving all 4 extremities. PSYCHIATRIC: no apparent anxiety . Diagnostic Tests Laboratory Laboratory Tests Test 09/12/17 14:39 09/12/17 18:48 09/12/17 21:47 09/13/17 03:42 Blood Urea Nitrogen 40 MG/DL (7-18) 42 MG/DL (7-18) 40 MG/DL (7-18) Creatinine 1.17 MG/DL (0.60-1.30) 1.15 MG/DL (0.60-1.30) 1.13 MG/DL (0.60-1.30) Random Glucose 169 MG/DL (74-106) 195 MG/DL (74-106) 166 MG/DL (74-106) Calcium Level 7.7 MG/DL (8.5-10.1) 7.7 MG/DL (8.5-10.1) 7.9 MG/DL (8.5-10.1) Phosphorus Level 3.8 MG/DL (2.5-4.9) 3.7 MG/DL (2.5-4.9) 3.6 MG/DL (2.5-4.9) Magnesium Level 2.0 MG/DL (1.5-2.5) 2.0 MG/DL (1.5-2.5) 1.9 MG/DL (1.5-2.5) Sodium Level 140 MEQ/L (136-145) 141 MEQ/L (136-145) 141 MEQ/L (136-145) Potassium Level 4.4 MEQ/L (3.5-5.1) 3.6 MEQ/L (3.5-5.1) 3.5 MEQ/L (3.5-5.1) 3.4 MEQ/L (3.5-5.1) Chloride Level 97 MEQ/L (98-107) 96 MEQ/L (98-107) 95 MEQ/L (98-107) Carbon Dioxide Level 35.2 MEQ/L (21.0-32.0) 35.3 MEQ/L (21.0-32.0) 36.2 MEQ/L (21.0-32.0) Anion Gap 8 MEQ/L (5-15) 10 MEQ/L (5-15) 10 MEQ/L (5-15) Estimat Glomerular Filtration Rate 63 ML/MIN (>89) 64 ML/MIN (>89) 66 ML/MIN (>89) White Blood Count 13.1 TH/MM3 (4.0-11.0) Red Blood Count 3.38 MIL/MM3 (4.50-5.90) Hemoglobin 10.4 GM/DL (13.0-17.0) Hematocrit 30.3 % (39.0-51.0) Mean Corpuscular Volume 89.4 FL (80.0-100.0) Mean Corpuscular Hemoglobin 30.6 PG (27.0-34.0) Mean Corpuscular Hemoglobin Concent 34.2 % (32.0-36.0) Red Cell Distribution Width 18.7 % (11.6-17.2) Platelet Count 153 TH/MM3 (150-450) Mean Platelet Volume 9.1 FL (7.0-11.0) Neutrophils (%) (Auto) 89.2 % (16.0-70.0) Lymphocytes (%) (Auto) 1.9 % (9.0-44.0) Monocytes (%) (Auto) 8.8 % (0.0-8.0) Eosinophils (%) (Auto) 0.0 % (0.0-4.0) Basophils (%) (Auto) 0.1 % (0.0-2.0) Neutrophils # (Auto) 11.7 TH/MM3 (1.8-7.7) Lymphocytes # (Auto) 0.3 TH/MM3 (1.0-4.8) Monocytes # (Auto) 1.2 TH/MM3 (0-0.9) Eosinophils # (Auto) 0.0 TH/MM3 (0-0.4) Basophils # (Auto) 0.0 TH/MM3 (0-0.2) CBC Comment AUTO DIFF Differential Total Cells Counted 100 Neutrophils % (Manual) 82 % (16-70) Band Neutrophils % 7 % (0-6) Lymphocytes % 4 % (9-44) Monocytes % 5 % (0-8) Neutrophils # (Manual) 11.9 TH/MM3 (1.8-7.7) Myelocytes 2 % (0-0) Differential Comment FINAL DIFF MANUAL Platelet Estimate NORMAL (NORMAL) Platelet Morphology Comment NORMAL (NORMAL) Stomatocytes 1+ (NORMAL) Keratocytes 1+ (NORMAL) Total Protein 6.1 GM/DL (6.4-8.2) Albumin 3.0 GM/DL (3.4-5.0) Alkaline Phosphatase 87 U/L (45-117) Aspartate Amino Transf (AST/SGOT) 14 U/L (15-37) Alanine Aminotransferase (ALT/SGPT) 23 U/L (12-78) Total Bilirubin 0.6 MG/DL (0.2-1.0) Test 09/13/17 18:57 09/14/17 04:43 09/14/17 20:34 09/15/17 04:23 Potassium Level 3.2 MEQ/L (3.5-5.1) 2.8 MEQ/L (3.5-5.1) 3.7 MEQ/L (3.5-5.1) 2.8 MEQ/L (3.5-5.1) White Blood Count 16.3 TH/MM3 (4.0-11.0) 18.7 TH/MM3 (4.0-11.0) Red Blood Count 3.96 MIL/MM3 (4.50-5.90) 3.86 MIL/MM3 (4.50-5.90) Hemoglobin 12.1 GM/DL (13.0-17.0) 11.6 GM/DL (13.0-17.0) Hematocrit 35.3 % (39.0-51.0) 35.0 % (39.0-51.0) Mean Corpuscular Volume 89.3 FL (80.0-100.0) 90.6 FL (80.0-100.0) Mean Corpuscular Hemoglobin 30.5 PG (27.0-34.0) 30.1 PG (27.0-34.0) Mean Corpuscular Hemoglobin Concent 34.2 % (32.0-36.0) 33.2 % (32.0-36.0) Red Cell Distribution Width 19.2 % (11.6-17.2) 19.3 % (11.6-17.2) Platelet Count 175 TH/MM3 (150-450) 179 TH/MM3 (150-450) Mean Platelet Volume 9.1 FL (7.0-11.0) 8.9 FL (7.0-11.0) Neutrophils (%) (Auto) 90.0 % (16.0-70.0) 92.7 % (16.0-70.0) Lymphocytes (%) (Auto) 1.7 % (9.0-44.0) 1.0 % (9.0-44.0) Monocytes (%) (Auto) 8.1 % (0.0-8.0) 6.3 % (0.0-8.0) Eosinophils (%) (Auto) 0.0 % (0.0-4.0) 0.0 % (0.0-4.0) Basophils (%) (Auto) 0.2 % (0.0-2.0) 0.0 % (0.0-2.0) Neutrophils # (Auto) 14.6 TH/MM3 (1.8-7.7) 17.3 TH/MM3 (1.8-7.7) Lymphocytes # (Auto) 0.3 TH/MM3 (1.0-4.8) 0.2 TH/MM3 (1.0-4.8) Monocytes # (Auto) 1.3 TH/MM3 (0-0.9) 1.2 TH/MM3 (0-0.9) Eosinophils # (Auto) 0.0 TH/MM3 (0-0.4) 0.0 TH/MM3 (0-0.4) Basophils # (Auto) 0.0 TH/MM3 (0-0.2) 0.0 TH/MM3 (0-0.2) CBC Comment AUTO DIFF AUTO DIFF Differential Total Cells Counted 100 100 Neutrophils % (Manual) 78 % (16-70) 82 % (16-70) Band Neutrophils % 12 % (0-6) 12 % (0-6) Lymphocytes % 3 % (9-44) Monocytes % 5 % (0-8) 5 % (0-8) Neutrophils # (Manual) 15.0 TH/MM3 (1.8-7.7) 17.8 TH/MM3 (1.8-7.7) Metamyelocytes 2 % (0-1) 1 % (0-1) Differential Comment FINAL DIFF MANUAL FINAL DIFF MANUAL Platelet Estimate NORMAL (NORMAL) NORMAL (NORMAL) Platelet Morphology Comment NORMAL (NORMAL) NORMAL (NORMAL) Acanthocytes OCC (NORMAL) Blood Urea Nitrogen 42 MG/DL (7-18) 41 MG/DL (7-18) Creatinine 1.03 MG/DL (0.60-1.30) 0.98 MG/DL (0.60-1.30) Random Glucose 102 MG/DL (74-106) 109 MG/DL (74-106) Total Protein 6.9 GM/DL (6.4-8.2) 6.5 GM/DL (6.4-8.2) Albumin 3.2 GM/DL (3.4-5.0) 3.1 GM/DL (3.4-5.0) Calcium Level 8.5 MG/DL (8.5-10.1) 8.5 MG/DL (8.5-10.1) Phosphorus Level 3.7 MG/DL (2.5-4.9) 3.9 MG/DL (2.5-4.9) Magnesium Level 2.2 MG/DL (1.5-2.5) 2.3 MG/DL (1.5-2.5) Alkaline Phosphatase 83 U/L (45-117) 83 U/L (45-117) Aspartate Amino Transf (AST/SGOT) 16 U/L (15-37) 14 U/L (15-37) Alanine Aminotransferase (ALT/SGPT) 25 U/L (12-78) 21 U/L (12-78) Total Bilirubin 0.8 MG/DL (0.2-1.0) 1.0 MG/DL (0.2-1.0) Sodium Level 140 MEQ/L (136-145) 139 MEQ/L (136-145) Chloride Level 95 MEQ/L (98-107) 100 MEQ/L (98-107) Carbon Dioxide Level 31.6 MEQ/L (21.0-32.0) 26.5 MEQ/L (21.0-32.0) Anion Gap 13 MEQ/L (5-15) 13 MEQ/L (5-15) Estimat Glomerular Filtration Rate 73 ML/MIN (>89) 78 ML/MIN (>89) Result Diagram: 09/15/17 0423 09/15/17 0423 Imaging Last Impressions Abdomen X-Ray 09/15/17 0000 Signed Impressions: Service Date/Time: Friday, September 15, 2017 08:57 - CONCLUSION: Nonobstructive bowel gas pattern. Eloy Georges MD Chest X-Ray 09/14/17 0600 Signed Impressions: Service Date/Time: Thursday, September 14, 2017 05:14 - CONCLUSION: 1. Left basilar airspace disease with small to moderate left effusion. Marked improvement in right basilar airspace disease since September 12. David Jay MD CT Angiography 08/29/17 2382 Signed Impressions: Service Date/Time: Tuesday, August 29, 2017 19:36 - CONCLUSION: 1. Multilobar consolidation. 2. No evidence for pulmonary embolism. 3. Extensive coronary calcifications Pk Bae MD Procedures 08/29/17-intubation 08/31/17-self extubation 08/31/17-reintubated . Assessment and Plan Disease Oriented Problem List: (1) Acute respiratory failure with hypoxia and hypercarbia (2) Lung cancer (3) Atrial fibrillation with RVR (4) Lung consolidation (5) COPD (chronic obstructive pulmonary disease) Symptom Scale: (1) Shortness of breath 0-10 Scale: Unable to quantify Comment: Hx of lung cancer. CT angiography revealed multilobar consolidation and no evidence for pulmonary embolism, extensive coronary calcifications. . (2) Pain 0-10 Scale: Unable to quantify Comment: Risk for pain-from procedure (intubation), bedbound status. . (3) Debility 0-10 Scale: Unable to quantify Comment: Progressive . Pertinent Non-Medical Issues Psychosocial:Patient was born and raised in [place]. He left [place] at the age of 20. Patient moved to [place] in 1975. Patient has a 2 years college degree in [employer] Patient worked for an [employer] as well as a [employer] company. Patient was and twice. He never had children. Spiritual:N scientology affiliation Legal:Patient has a [facility] form signed and completed a Community DNR Ethical issues impacting care:None identified at this time . Important Contacts Alternate [facility]- Cousin- Dahiana Mayorga [phone] Friend-Nemo [phone] XXX [facility]- (Long time friend-15 yrs) Kay Rizvi [phone]- . Prognosis Mr Adams is a 61 years old male with a past medical history significant of lung cancer s/p radiation, COPD, hypertension, coronary artery disease and tobacco use. Patient presented to the ER via EMS on 08/29/17 complaining of shortness of breath that had started the night before, generalized malaise and weakness. Clinical course complicated with atrial fibrillation with RVR, and acute hypoxic and hypercapnic respiratory failure. Given ongoing comorbidities , patient remains at high risk for further complications, deterioration and decline. . Code Status: Full Code Plan Legal decision maker: Patient is currently intubated, sedated on mechanical ventilation and is not able to participate in decision-making. Patient`s cousin Dahiana Mayorga whom he has designated as his alternate healthcare surrogate will make medical decisions for patient. Goals: Remain Aggressive , cousin/HCS to review/discuss possible trach/PEG this week w additional family. She has been hopeful that pt would be able to extubate and make his own decisions. CODE STATUS: Full code Per previous conversation 09/09 with patient's healthcare surrogate Dahiana, goals remain aggressive. She hopes that code status will be readdressed with patient when he is medically extubated. SYMPTOMS: * Shortness of breath: Patient has history of lung cancer, COPD and tobacco use. Patient presented with shortness of breath. Intubated 08/29, self extubated 08/31, reintubated 08/31 secondary to respiratory failure. Solu-Medrol and duo nebs prn. Has not been tolerating CPAP for longer than a couple hours. CPAP trials again today per critical care. * Pain: Patient is at risk for pain, required intubation in the ER. Currently bedbound. Fentanyl infusion at 100mcg/hr, held today for CPAP trial. Nods no to pain today. No recommendations at this time. * Debility: Progressive: Hx of lung cancer s/p radiation. Multiple hospitalizations. Physical therapy following recommending physical therapy at rehab. . Palliative care will continue to follow the patient during hospital course as condition evolves, to assist patient/decision-maker with understanding of their medical conditions, weighing benefits/burdens of treatment options, for clarification of goals of treatment. Additionally will assist with any symptoms of palliative concern Time Spent Total Floor Time (mins): 35 (Chart review, PE, discussion with critical care, discussion with nursing, discussion with family/HCS) Attestation To help prompt me to consider important information that might be impacting today's encounter and assessment, information from prior notes written by myself or my colleagues may have been "brought forward" into today's note. My signature on this note, however, is an attestation that I personally performed the exam, history, and/or decision-making noted today, and, unless otherwise indicated, the interactions with patient, family, and staff as well as the review of records all occurred today. I also attest that the listed assessment and stated plan reflect my best clinical judgment today based on the combination of historical information, prior notes, and today's exam/ interactions. When time spent is documented, it refers only to time spent today by the signer, or if indicated, combined time spent today by collaborating physician/nurse practitioner. Lynnette Hamilton September 15, 2017 11:50
--- NOTE | 2017-09-15 13:18 | HHI.IDPN ---
Note Infectious Disease Note Patient remains on the ventilator. He is currently on CPAP. Very awake and alert. Responsive. Follows commands. Afebrile. Presented to the emergency department on 08/29 with respiratory symptoms. Intubated in the ED. PAST MEDICAL HISTORY: Left lung cancer, being treated with chemotherapy and radiation, coronary artery disease, peripheral arterial disease, COPD, hypertension, anxiety, depression, bilateral cataract surgery, recent pneumonia due to Pseudomonas in 04/2017 and 07/2017, history of iliac artery bypass surgery. ALLERGIES: NO KNOWN DRUG ALLERGIES. Antibiotics: Piperacillin/tazobactam. Levaquin. Objective: Vital Signs Date Time Temp Pulse Resp B/P (MAP) Pulse Ox O2 Delivery O2 Flow Rate FiO2 09/15/17 12:00 40 09/15/17 12:00 80 09/15/17 12:00 98.2 80 18 177/103 (127) 98 09/15/17 10:00 71 09/15/17 08:00 76 09/15/17 08:00 40 09/15/17 08:00 98.4 76 18 185/105 (131) 98 09/15/17 07:32 98 40 09/15/17 07:00 98 Mechanical Ventilator 40 09/15/17 06:46 83 179/98 09/15/17 06:00 82 09/15/17 04:04 97 40 09/15/17 04:00 40 09/15/17 04:00 83 09/15/17 04:00 98.0 83 185/81 (115) 98 09/15/17 02:00 69 09/15/17 00:24 99 40 09/15/17 00:00 40 09/15/17 00:00 98.4 71 20 165/93 (117) 98 09/15/17 00:00 71 09/14/17 22:21 160 134/96 09/14/17 22:20 81 157/92 09/14/17 22:00 67 09/14/17 20:00 82 09/14/17 20:00 40 09/14/17 20:00 97.6 82 20 177/92 (120) 97 09/14/17 19:30 97 40 09/14/17 19:00 97 Mechanical Ventilator 40 09/14/17 18:00 85 09/14/17 16:11 98 40 5/14/18 16:00 61 09/14/17 16:00 40 09/14/17 16:00 98.5 61 162/94 (116) 98 09/14/17 14:00 66 Laboratory Tests Test 09/14/17 04:43 09/15/17 04:23 White Blood Count 16.3 TH/MM3 18.7 TH/MM3 Red Blood Count 3.96 MIL/MM3 3.86 MIL/MM3 Hemoglobin 12.1 GM/DL 11.6 GM/DL Hematocrit 35.3 % 35.0 % Mean Corpuscular Volume 89.3 FL 90.6 FL Mean Corpuscular Hemoglobin 30.5 PG 30.1 PG Mean Corpuscular Hemoglobin Concent 34.2 % 33.2 % Red Cell Distribution Width 19.2 % 19.3 % Platelet Count 175 TH/MM3 179 TH/MM3 Mean Platelet Volume 9.1 FL 8.9 FL Neutrophils (%) (Auto) 90.0 % 92.7 % Lymphocytes (%) (Auto) 1.7 % 1.0 % Monocytes (%) (Auto) 8.1 % 6.3 % Eosinophils (%) (Auto) 0.0 % 0.0 % Basophils (%) (Auto) 0.2 % 0.0 % Neutrophils # (Auto) 14.6 TH/MM3 17.3 TH/MM3 Lymphocytes # (Auto) 0.3 TH/MM3 0.2 TH/MM3 Monocytes # (Auto) 1.3 TH/MM3 1.2 TH/MM3 Eosinophils # (Auto) 0.0 TH/MM3 0.0 TH/MM3 Basophils # (Auto) 0.0 TH/MM3 0.0 TH/MM3 CBC Comment AUTO DIFF AUTO DIFF Differential Total Cells Counted 100 100 Neutrophils % (Manual) 78 % 82 % Band Neutrophils % 12 % 12 % Lymphocytes % 3 % Monocytes % 5 % 5 % Neutrophils # (Manual) 15.0 TH/MM3 17.8 TH/MM3 Metamyelocytes 2 % 1 % Differential Comment FINAL DIFF MANUAL FINAL DIFF MANUAL Platelet Estimate NORMAL NORMAL Platelet Morphology Comment NORMAL NORMAL Acanthocytes OCC Laboratory Tests Test 09/13/17 18:57 09/14/17 04:43 09/14/17 20:34 09/15/17 04:23 Potassium Level 3.2 MEQ/L 2.8 MEQ/L 3.7 MEQ/L 2.8 MEQ/L Blood Urea Nitrogen 42 MG/DL 41 MG/DL Creatinine 1.03 MG/DL 0.98 MG/DL Random Glucose 102 MG/DL 109 MG/DL Total Protein 6.9 GM/DL 6.5 GM/DL Albumin 3.2 GM/DL 3.1 GM/DL Calcium Level 8.5 MG/DL 8.5 MG/DL Phosphorus Level 3.7 MG/DL 3.9 MG/DL Magnesium Level 2.2 MG/DL 2.3 MG/DL Alkaline Phosphatase 83 U/L 83 U/L Aspartate Amino Transf (AST/SGOT) 16 U/L 14 U/L Alanine Aminotransferase (ALT/SGPT) 25 U/L 21 U/L Total Bilirubin 0.8 MG/DL 1.0 MG/DL Sodium Level 140 MEQ/L 139 MEQ/L Chloride Level 95 MEQ/L 100 MEQ/L Carbon Dioxide Level 31.6 MEQ/L 26.5 MEQ/L Anion Gap 13 MEQ/L 13 MEQ/L Estimat Glomerular Filtration Rate 73 ML/MIN 78 ML/MIN Microbiology Date/Time Source Procedure Growth Status 09/11/17 18:30 Stool Stool Stool Occult Blood (ANDREW) - Final HEMOCCULT POSITIVE Complete 09/11/17 17:30 Sputum Endotracheal Gram Stain - Final Resulted 09/11/17 17:30 Sputum Culture - Preliminary Pseudomonas Species Resulted IMAGING: Abdomen X-Ray 09/15/17 0000 Signed Impressions: Service Date/Time: Friday, September 15, 2017 08:57 - CONCLUSION: Nonobstructive bowel gas pattern. Eloy Georges MD Chest X-Ray 09/14/17 0600 Signed Impressions: Service Date/Time: Thursday, September 14, 2017 05:14 - CONCLUSION: 1. Left basilar airspace disease with small to moderate left effusion. Marked improvement in right basilar airspace disease since September 12. David Jay MD Chest X-Ray 09/02/17 0000 Signed Impressions: Service Date/Time: Saturday, September 02, 2017 06:32 - CONCLUSION: Bilateral airspace disease with interval worsening in the left base. Possible developing left-sided effusion. Jaret Crouch MD Abdomen X-Ray 08/31/17 0000 Signed Impressions: Service Date/Time: Thursday, August 31, 2017 20:34 - CONCLUSION: 1. Nasogastric tube tip in distal stomach. David Jay MD CT Angiography 4/28/18 1849 Signed Impressions: Service Date/Time: Tuesday, August 29, 2017 19:36 - CONCLUSION: 1. Multilobar consolidation. 2. No evidence for pulmonary embolism. 3. Extensive coronary calcifications Pk Bae MD PHYSICAL EXAMINATION: GENERAL: On the ventilator. No acute distress HEENT: Pupils reactive to light. No icterus. Moist oral mucosa. NECK: No swelling. No adenopathy. LUNGS: Bibasilar rhonchi. HEART: Regular rate and rhythm. Slight systolic murmur at the left sternal border. ABDOMEN: Bowel sounds present, soft. EXTREMITIES: Ecchymosis at the upper extremities. No edema No clubbing or cyanosis. SKIN: No diffuse rash. NEUROLOGIC: Responds and move the extremities. Not able to fully assess. PSYCHIATRIC: Unable to assess. IMPRESSION: 1. Bilateral pneumonia due to Pseudomonas. Last sputum culture from 09/12 has light growth of Pseudomonas. Appears to be improving. 2. Acute respiratory failure. Ventilator dependent. 3. History of lung cancer. Appears stable. RECOMMENDATIONS: 1. Continue piperacillin/tazobactam plan on giving a 21 day course until 09/20. 2. Continue the Levaquin plan on giving 21 day course until 09/20. 3. Continue to monitor clinical status. Herve Zarate MD September 15, 2017 13:18
[2017-09-15] MEDS ORDERED: RESP: ALBUTEROL 2.5 MG/IPRATROPIUM 0.5 MG NEB (PRN) NEB (14:00)
[2017-09-15] MEDS: LEVOFLOXACIN 250 MG PREMIX INJ 50 ML IV SCH (14:04)
[2017-09-15] MEDS: RESP: ALBUTEROL 2.5 MG/IPRATROPIUM 0.5 MG NEB (SCH) NEB ×2 (16:10→19:49)
[2017-09-16] VITALS (16 sets, daily range): BP systolic 163–192; BP diastolic 90–105; PULSE 75–94; RESP 18–33; TEMP 97.5–99.3; O2SAT 91–100
[2017-09-16] MEDS: LABETALOL HCL 100 MG/20 ML VIAL IV PUSH PRN ×7 (00:02→20:57)
[2017-09-16] MEDS: RESP: ALBUTEROL 2.5 MG/IPRATROPIUM 0.5 MG NEB (SCH) NEB ×7 (01:27→23:03)
[2017-09-16] MEDS: hydrALAZINE HCL 20 MG/ML VIAL IV PUSH PRN ×2 (03:13→22:50)
[2017-09-16] MEDS: CHLORHEXIDINE GLUCONATE 2 % 1 PACK (2 CLOTHS) TOP SCH (04:00)
[2017-09-16] MEDS: ARTIFICIAL TEARS OPTH SOLN 15 ML BTL EACH EYE SCH ×3 (05:26→21:00)
[2017-09-16] MEDS: PIPERACIL-TAZO 4.5 GM PREMIX 100 ML IV SCH ×4 (05:26→22:52)
[2017-09-16] MEDS: ISOSORBIDE DINITRATE 10 MG TAB PO SCH ×3 (05:28→21:00)
[2017-09-16] MEDS: INSULIN NovoLIN REGULAR SUPPLEMENTAL SCALE SQ SCH ×5 (05:28→23:50)
[2017-09-16] MEDS: hydrALAZINE HCL 25 MG TAB PO SCH ×3 (05:28→21:00)
[2017-09-16 07:11] LABS: BASOPHIL # 0.1 TH/MM3 (0-0.2); BASOPHIL % 0.4 % (0.0-2.0); HEMATOCRIT 32.4 % (39.0-51.0); HEMOGLOBIN 10.7 GM/DL (13.0-17.0); LYMPH % 0.8 % (9.0-44.0); LYMPHOCYTE # 0.1 TH/MM3 (1.0-4.8); MEAN CELL VOLUME 91.2 FL (80.0-100.0); MEAN CORPUSCULAR HEMOGLOBIN 30.2 PG (27.0-34.0); MEAN CORPUSCULAR HGB CONC 33.2 % (32.0-36.0); MEAN PLATELET VOLUME 8.5 FL (7.0-11.0); MONO % 5.9 % (0.0-8.0); NEUT % 92.9 % (16.0-70.0); PLATELET COUNT 185 TH/MM3 (150-450); RED BLOOD COUNT 3.55 MIL/MM3 (4.50-5.90); RED CELL DISTRIBUTION WIDTH 18.9 % (11.6-17.2); WHITE BLOOD COUNT 17.2 TH/MM3 (4.0-11.0)
[2017-09-16 07:39] LABS: ALKALINE PHOSPHATASE 79 U/L (45-117); ALT (GPT) 20 U/L (12-78); AST (GOT) 17 U/L (15-37); BICARBONATE 23.9 MEQ/L (21.0-32.0); BLOOD UREA NITROGEN 32 MG/DL (7-18); CALCIUM 9.2 MG/DL (8.5-10.1); CHLORIDE 109 MEQ/L (98-107); CREATININE 0.81 MG/DL (0.60-1.30); GLOMERULAR FILTRATION RATE 97 ML/MIN (>89); GLUCOSE,RANDOM 84 MG/DL (74-106); MAGNESIUM 2.4 MG/DL (1.5-2.5); PHOSPHORUS 2.7 MG/DL (2.5-4.9); SODIUM (NA) 144 MEQ/L (136-145); TOTAL BILIRUBIN ADULT 1.2 MG/DL (0.2-1.0)
[2017-09-16] MEDS: CHLORHEXIDINE 0.12% (ORAL KIT) 15 ML CUP MT SCH ×2 (08:00→20:00)
[2017-09-16] MEDS: PRAVASTATIN SOD 10 MG TAB PO SCH (08:16)
[2017-09-16] MEDS: methylPREDNISolone SOD SUCC 40 MG/1 ML VIAL IV PUSH SCH ×4 (08:16→23:54)
[2017-09-16] MEDS: METOPROLOL TARTRATE 50 MG TAB PO SCH ×2 (08:16→20:59)
[2017-09-16] MEDS: LANSOPRAZOLE SOLUTAB 30 MG TAB NG SCH (08:16)
[2017-09-16] MEDS: DOCUSATE SODIUM 50 MG/SENNA 8.6 MG TAB PO SCH ×2 (08:17→21:00)
[2017-09-16] MEDS: POTASSIUM CHLOR 20 MEQ PREMIX 100 ML IV PRN ×4 (09:04→15:31)
--- NOTE | 2017-09-16 09:07 | HHI.CCPN ---
Subjective Remarks/Hospital Course 08/29: This is a 61-year-old male with a history of lung cancer undergoing current chemotherapy and radiation who was recently admitted on 07/19 for aspiration pneumonia. During that admission he did have episodes of paroxysmal atrial fibrillation and had an echo from 04/2017 showing an EF of 50-55%. He represents today to the emergency department with acute shortness of breath since last night. Per the ER documentation, he denies any coughing, fever, chills, or other recent symptoms or changes other than the new dyspnea. In the emergency department he was found to be in A. fib with RVR. This initially converted to sinus rhythm 1 after diltiazem 20 mg IV bolus, but then very quickly went back into atrial for ablation with rapid ventricular response. 2 doses of adenosine were not able to convert it. The patient was loaded with amiodarone and infusion was started. After this, the patient become acutely hypoxemic requiring emergent intubation. Please refer to the emergency room physician documentation for additional details regarding the decompensation. When I came to evaluate patient, the patient was recently intubated, sedated. No additional information is available from the patient due to his clinical condition. Review of systems is unobtainable. Critical care medicine is consulted to evaluate manage his acute hypoxic respiratory failure along with his acute supraventricular tachycardia. 08/30: Patient remains intubated and sedated. FiO2 down to 0.5. Patient continues to be on amiodarone infusion and heparin drip. Sedation achieved with propofol and fentanyl. Patient remains hypothermic requiring Gracia hugger, urine output 350 mL's documented since admission. 08/31: No events over the night. Patient remains intubated and sedated. Hemoglobin more stable posttransfusion. Hypothermia resolved, T-max of 100.3. Urine output remains low, 635 mL's over the last 24 hours. Oxygenation is improved. No family present at bedside. Patient remains in sinus rhythm, on amiodarone infusion. No report of melena, hematochezia or coffee-ground aspirate from NG tube. Morning chest x-ray reviewed, worsening infiltrates over the right thorax, unchanged consolidation over the left. 09/01: Afebrile. Patient was extubated yesterday afternoon and emergently intubated 1030 last night secondary to hypoxemic respiratory failure. This x- ray pending this a.m.. The patient also was noted to have severe metabolic acidosis and sodium bicarbonate infusion was initiated. Patient noted to have Pseudomonas, and placed on Zosyn. Patient continues to have leukocytosis with worsening pneumonia ID has been consulted appreciate recommendations. Patient previously DNR palliative has been consulted up on hypoxemic respiratory failure patient was noted to request intubation at that time. Palliative care consult pending. Patient continues on amiodarone infusion now in sinus rhythm. Amiodarone infusion discontinued the patient continued on metoprolol and Cardizem home medications. Hemoglobin appears stable status post 2 units transfusion 48 hours ago. Will do serial H&H's aspirin reinitiated will hold Plavix for now, and continue to follow. Subcu heparin initiated. 09/02: Afebrile. Hemoglobin stable for the last 24 hours. Plan to restart tube feeds this a.m.. Metabolic acidosis resolved, patient's sodium bicarbonate discontinued. Patient requiring increasing FiO2 requirements during the night , now at 100% ABG pending. This am chest x-ray worsening. 09/03: Late entry note patient seen at 8:15 AM .afebrile. Chest x-ray continues to worsen. FiO2 requirement slightly decreased we will attempt CPAP trials today. 09/04: Afebrile. patient awake and following commands this a.m. Currently on CPAP trials. FiO2 weaned to 45% 09/05: Afebrile. Patient tolerating CPAP trials. She noted to have elevated blood glucose level secondary methylprednisolone. Chest x-ray now improving methylprednisolone taper initiated. Patient noted to still have episodes of hypertension Cardizem increased to 90 mg every 6 hours. 09/06: Patient currently in a flutter. Received adenosine 12 mg 1 which feels a flutter. Echocardiogram CPK and troponin ordered. TSH normal during this hospitalization. Potassium magnesium both normalized. Arousable and follows commands. Subjective 09/07: Patient is currently on PSV trial 20/8 ~35%. Patient oscillating on CODE STATUS. Tolerating tube feeds. Remains in normal sinus rhythm on amiodarone drip. 09/08: No events over the night. CPAP trial was attempted this morning patient went into A. fib with RVR after 15 minutes. Patient was switched back to full support, and converted to sinus rhythm. He continues to be on amiodarone infusion and heparin drip. He is lethargic but easily arousable able to follow some commands. FiO2 at 0.5 and PEEP at 8. T-max of 99. 09/09: No events over the night. T-max of 98.9. Patient remains intubated and sedated, on propofol and fentanyl. CPAP trial attempted this morning again and patient went into A. fib with RVR and hypoxia, therefore he was placed back on PRVC. No family present at bedside. Urine output of 2350 mL over the last 24 hours. He is +22 L since admission charting is correct. 09/10: No events over the night. This morning patient is in A. fib with RVR heart rate 150, hemodynamically stable. Patient had excellent response to diuresis, urine output greater than 4 L over the last 24 hours. T-max of 98.5. No family present at bedside. Morning chest x-ray reviewed. 09/11: Patient did well over the night. He remains in sinus rhythm on amiodarone infusion. Patient was started on Lasix drip yesterday with great urine output. Patient is negative approximately 2.5 L over the last 24 hours. Afebrile, with Tmax of 99.9. Oxygenation down to 40%. 09/12: No events over the night. Patient remains afebrile with a T-max of 99.4. Patient continues to be on Lasix drip with good urine output however he still on positive fluid balance over the last 24 hours. Lasix drip increased to 7.5 mg/h this morning. He continues to be on amiodarone infusion, and sedation with propofol and fentanyl. Patient is awake, weak, following some commands. Oxygenation not significantly improved, still requiring PEEP of 7 and 50% O2. Morning chest x-ray reviewed, ET tube is in good position, no significant change compared to 2 days ago. 09/13: No events over the night. Patient remains intubated and sedated. Afebrile over the night with a T-max of 98.9. -1.5 L over the last 24 hours. 09/14 Patient is intubated and sedated with Fentanyl drip. On Amio and Lasix drips. UOP: 4.1 L overnight. 09/15 Patient remains intubated and sedated. off Lasix drip. TF held for emesis/ high residuals. Patient was in Afib with RVR and restarted on Amio drip overnight. (Amio was held during day yesterday for bradycardia) 09/15 Patient was extubated yesterday on 10L simple mask. Awake. Afebrile. Remains on Amio drip. Objective Vital Signs Date Time Temp Pulse Resp B/P (MAP) Pulse Ox O2 Delivery O2 Flow Rate FiO2 09/16/17 08:18 92 Nasal Cannula 4.00 09/16/17 06:00 82 09/16/17 04:00 98.9 18 180/94 (122) 09/15/17 12:00 40 Intake and Output 09/16/17 09/16/17 09/17/17 08:00 16:00 00:00 Intake Total 100 ml Output Total 850 ml Balance -750 ml Result Diagram: 09/16/17 0645 09/16/17 0645 Other Results Laboratory Tests Test 09/15/17 12:44 09/15/17 17:58 09/16/17 06:45 09/16/17 08:30 Blood Gas Puncture Site RT RADIAL RT RADIAL Blood Gas Patient Temperature 98.6 98.6 Blood Gas HCO3 27 mmol/L 24 mmol/L Blood Gas Base Excess 2.5 mmol/L 0.7 mmol/L Blood Gas Oxygen Saturation 96 % 82 % Arterial Blood pH 7.42 7.47 Arterial Blood Partial Pressure CO2 41 mmHg 34 mmHg Arterial Blood Partial Pressure O2 148 mmHg 50 mmHg Arterial Blood Oxygen Content 15.7 Vol % 12.8 Vol % Arterial Blood Carboxyhemoglobin 1.4 % 2.0 % Arterial Blood Methemoglobin 1.4 % 1.4 % Blood Gas Hemoglobin 11.4 G/DL 11.0 G/DL Oxygen Delivery Device VENTILATOR NASAL CANNULA Blood Gas Ventilator Setting CPAP/PS10/EPAP7 Blood Gas Inspired Oxygen 40 % Potassium Level 4.1 MEQ/L 3.2 MEQ/L White Blood Count 17.2 TH/MM3 Red Blood Count 3.55 MIL/MM3 Hemoglobin 10.7 GM/DL Hematocrit 32.4 % Mean Corpuscular Volume 91.2 FL Mean Corpuscular Hemoglobin 30.2 PG Mean Corpuscular Hemoglobin Concent 33.2 % Red Cell Distribution Width 18.9 % Platelet Count 185 TH/MM3 Mean Platelet Volume 8.5 FL Neutrophils (%) (Auto) 92.9 % Lymphocytes (%) (Auto) 0.8 % Monocytes (%) (Auto) 5.9 % Eosinophils (%) (Auto) 0.0 % Basophils (%) (Auto) 0.4 % Neutrophils # (Auto) 16.0 TH/MM3 Lymphocytes # (Auto) 0.1 TH/MM3 Monocytes # (Auto) 1.0 TH/MM3 Eosinophils # (Auto) 0.0 TH/MM3 Basophils # (Auto) 0.1 TH/MM3 CBC Comment DIFF FINAL Differential Comment Blood Urea Nitrogen 32 MG/DL Creatinine 0.81 MG/DL Random Glucose 84 MG/DL Total Protein 7.0 GM/DL Albumin 3.0 GM/DL Calcium Level 9.2 MG/DL Phosphorus Level 2.7 MG/DL Magnesium Level 2.4 MG/DL Alkaline Phosphatase 79 U/L Aspartate Amino Transf (AST/SGOT) 17 U/L Alanine Aminotransferase (ALT/SGPT) 20 U/L Total Bilirubin 1.2 MG/DL Sodium Level 144 MEQ/L Chloride Level 109 MEQ/L Carbon Dioxide Level 23.9 MEQ/L Anion Gap 11 MEQ/L Estimat Glomerular Filtration Rate 97 ML/MIN Blood Gas Liter Flow 4 L/M Imaging Last Impressions Abdomen X-Ray 09/15/17 0000 Signed Impressions: Service Date/Time: Friday, September 15, 2017 08:57 - CONCLUSION: Nonobstructive bowel gas pattern. Eloy Georges MD Chest X-Ray 09/14/17 0600 Signed Impressions: Service Date/Time: Thursday, September 14, 2017 05:14 - CONCLUSION: 1. Left basilar airspace disease with small to moderate left effusion. Marked improvement in right basilar airspace disease since September 12. David Jay MD CT Angiography 08/29/17 1849 Signed Impressions: Service Date/Time: Tuesday, August 29, 2017 19:36 - CONCLUSION: 1. Multilobar consolidation. 2. No evidence for pulmonary embolism. 3. Extensive coronary calcifications Pk Bae MD Objective Remarks General - elderly gentleman on 10L simple mask HEENT - pupils are equal, reactive, sclerae are anicteric, neck is supple, no rigidity, no JVD,, + NGT CV - regular S1 and S2, no murmurs Chest - B/L equal air entry Abdomen - remains soft, bowel sounds present, nontender, not distended Extremities - No c/c, + 1 edema Neuro Awake, alert A/P Problem List: (1) OBED (acute kidney injury) ICD Code: N17.9 - Acute kidney failure, unspecified (2) Severe protein-calorie malnutrition ICD Code: E43 - Unspecified severe protein-calorie malnutrition Status: Chronic (3) Shortness of breath ICD Code: R06.02 - Shortness of breath Status: Acute (4) Tobacco abuse ICD Code: Z72.0 - Tobacco use Status: Chronic (5) Paroxysmal A-fib ICD Code: I48.0 - Paroxysmal atrial fibrillation Status: Chronic (6) Atrial fibrillation with RVR ICD Code: I48.91 - Unspecified atrial fibrillation Status: Resolved (7) PNA (pneumonia) ICD Code: J18.9 - Pneumonia, unspecified organism (8) COPD (chronic obstructive pulmonary disease) ICD Code: J44.9 - Chronic obstructive pulmonary disease, unspecified (9) Lung cancer ICD Code: C34.90 - Malignant neoplasm of unspecified part of unspecified bronchus or lung (10) Debility ICD Code: R53.81 - Other malaise Status: Chronic (11) Pain ICD Code: R52 - Pain, unspecified Status: Chronic (12) Lung consolidation ICD Code: J18.1 - Lobar pneumonia, unspecified organism Status: Acute (13) Acute respiratory failure with hypoxia and hypercarbia ICD Code: J96.01 - Acute respiratory failure with hypoxia; J96.02 - Acute respiratory failure with hypercapnia Assessment and Plan 1. Acute hypoxic and hypercapnic respiratory failure - Extubated 09/15 2. Pseudomonas pneumonia -patient remains afebrile 3. Acute COPD exacerbation -resolved 4. Lung cancer currently undergoing radiation therapy and chemotherapy prior to hospitalization 5. Atrial fibrillation with rapid ventricular response -multiple recurrences during the admission, currently in sinus rhythm 6. Elevated troponin - trending down 7. Acute blood loss anemia -reoccurred, this morning's hemoglobin at 6.3. No clear evidence of bleed, no melena no hematemesis no hematochezia 8. OBED -resolved Plan Neuro: Awake and alert avoid sedatives Pulm: Wean down oxygen as moise keep sats >92% Bronchodilators, IS Change Solumederol 40mg IV Q6 CV: Monitor HR and BP keep MAP>65mmHg Add Cardizem 60mg Q6, d/c Amio On Hydralazine 50mg Q8 for BP control, On Isordil 10mg Q8, Lopressor 50mg Q12 Continue statin Echo showed EF 40-45% : Monitor renal function, I/O's, electrolytes replacement per protocol GI: Patient failed speech eval will resume tube feeds via NGT( Jevity 1.with goal rate 50ml/hr) KUB abdomen 09/15 : Non obstructive bowel gas pattern ID: Abx per ID ( On levofloxacin, Zosyn )Monitor for signs of infections ( Fever , WBC) Sputum cx 08/30, 09/11: Pseudomonas Endo: SSI for glycemic Heme: Monitor CBC, Hemeoccult positive GI prophylaxis DVT prophylaxis with SCDs. Heparin on hold due to acute anemia Level 3 Problem Qualifiers (1) PNA (pneumonia): Qualified Codes: J18.1 - Lobar pneumonia, unspecified organism Rachel Otero MD September 16, 2017 09:07
[2017-09-16] MEDS: LEVOFLOXACIN 250 MG PREMIX INJ 50 ML IV SCH (12:10)
--- NOTE | 2017-09-16 12:33 | HHI.IDPN ---
Note Infectious Disease Note Patient was extubated. He is now on 8 L oxygen via facemask. Awake and alert. Appears a little anxious. Follows commands. Afebrile. No cough. Presented to the emergency department on 08/29 with respiratory symptoms. Intubated in the ED. PAST MEDICAL HISTORY: Left lung cancer, being treated with chemotherapy and radiation, coronary artery disease, peripheral arterial disease, COPD, hypertension, anxiety, depression, bilateral cataract surgery, recent pneumonia due to Pseudomonas in 04/2017 and 07/2017, history of iliac artery bypass surgery. ALLERGIES: NO KNOWN DRUG ALLERGIES. Antibiotics: Piperacillin/tazobactam. Levaquin. Objective: Vital Signs Date Time Temp Pulse Resp B/P (MAP) Pulse Ox O2 Delivery O2 Flow Rate FiO2 09/16/17 10:00 80 09/16/17 08:18 92 Nasal Cannula 4.00 09/16/17 08:00 84 09/16/17 08:00 99.3 84 178/93 100 09/16/17 07:58 100 Simple Mask 10.00 09/16/17 07:00 100 Simple Mask 10.00 09/16/17 06:00 82 09/16/17 04:00 98.9 75 18 180/94 (122) 95 09/16/17 04:00 75 09/16/17 02:00 78 09/16/17 00:45 92 Simple Mask 10.00 09/16/17 00:00 84 09/16/17 00:00 98.1 84 192/105 (134) 93 09/15/17 23:48 82 179/99 09/15/17 22:00 84 09/15/17 20:00 76 09/15/17 20:00 97.2 76 20 194/116 (142) 94 09/15/17 19:50 92 Nasal Cannula 4.00 09/15/17 19:00 94 Simple Mask 9.00 09/15/17 18:00 84 09/15/17 16:21 93 Nasal Cannula 4.00 09/15/17 16:00 98.3 83 18 171/106 (127) 98 09/15/17 16:00 83 09/15/17 14:15 93 Nasal Cannula 4 09/15/17 14:00 81 Laboratory Tests Test 09/15/17 04:23 09/16/17 06:45 White Blood Count 18.7 TH/MM3 17.2 TH/MM3 Red Blood Count 3.86 MIL/MM3 3.55 MIL/MM3 Hemoglobin 11.6 GM/DL 10.7 GM/DL Hematocrit 35.0 % 32.4 % Mean Corpuscular Volume 90.6 FL 91.2 FL Mean Corpuscular Hemoglobin 30.1 PG 30.2 PG Mean Corpuscular Hemoglobin Concent 33.2 % 33.2 % Red Cell Distribution Width 19.3 % 18.9 % Platelet Count 179 TH/MM3 185 TH/MM3 Mean Platelet Volume 8.9 FL 8.5 FL Neutrophils (%) (Auto) 92.7 % 92.9 % Lymphocytes (%) (Auto) 1.0 % 0.8 % Monocytes (%) (Auto) 6.3 % 5.9 % Eosinophils (%) (Auto) 0.0 % 0.0 % Basophils (%) (Auto) 0.0 % 0.4 % Neutrophils # (Auto) 17.3 TH/MM3 16.0 TH/MM3 Lymphocytes # (Auto) 0.2 TH/MM3 0.1 TH/MM3 Monocytes # (Auto) 1.2 TH/MM3 1.0 TH/MM3 Eosinophils # (Auto) 0.0 TH/MM3 0.0 TH/MM3 Basophils # (Auto) 0.0 TH/MM3 0.1 TH/MM3 CBC Comment AUTO DIFF DIFF FINAL Differential Total Cells Counted 100 Neutrophils % (Manual) 82 % Band Neutrophils % 12 % Monocytes % 5 % Neutrophils # (Manual) 17.8 TH/MM3 Metamyelocytes 1 % Differential Comment FINAL DIFF MANUAL Platelet Estimate NORMAL Platelet Morphology Comment NORMAL Laboratory Tests Test 09/14/17 20:34 09/15/17 04:23 09/15/17 17:58 09/16/17 06:45 Potassium Level 3.7 MEQ/L 2.8 MEQ/L 4.1 MEQ/L 3.2 MEQ/L Blood Urea Nitrogen 41 MG/DL 32 MG/DL Creatinine 0.98 MG/DL 0.81 MG/DL Random Glucose 109 MG/DL 84 MG/DL Total Protein 6.5 GM/DL 7.0 GM/DL Albumin 3.1 GM/DL 3.0 GM/DL Calcium Level 8.5 MG/DL 9.2 MG/DL Phosphorus Level 3.9 MG/DL 2.7 MG/DL Magnesium Level 2.3 MG/DL 2.4 MG/DL Alkaline Phosphatase 83 U/L 79 U/L Aspartate Amino Transf (AST/SGOT) 14 U/L 17 U/L Alanine Aminotransferase (ALT/SGPT) 21 U/L 20 U/L Total Bilirubin 1.0 MG/DL 1.2 MG/DL Sodium Level 139 MEQ/L 144 MEQ/L Chloride Level 100 MEQ/L 109 MEQ/L Carbon Dioxide Level 26.5 MEQ/L 23.9 MEQ/L Anion Gap 13 MEQ/L 11 MEQ/L Estimat Glomerular Filtration Rate 78 ML/MIN 97 ML/MIN Microbiology Date/Time Source Procedure Growth Status 09/11/17 18:30 Stool Stool Stool Occult Blood (ANDREW) - Final HEMOCCULT POSITIVE Complete 09/11/17 17:30 Sputum Endotracheal Gram Stain - Final Resulted 09/11/17 17:30 Sputum Culture - Preliminary Pseudomonas Species Resulted IMAGING: Abdomen X-Ray 09/15/17 0000 Signed Impressions: Service Date/Time: Friday, September 15, 2017 08:57 - CONCLUSION: Nonobstructive bowel gas pattern. Eloy Georges MD Chest X-Ray 09/14/17 0600 Signed Impressions: Service Date/Time: Thursday, September 14, 2017 05:14 - CONCLUSION: 1. Left basilar airspace disease with small to moderate left effusion. Marked improvement in right basilar airspace disease since September 12. David Jay MD Chest X-Ray 09/02/17 0000 Signed Impressions: Service Date/Time: Saturday, September 02, 2017 06:32 - CONCLUSION: Bilateral airspace disease with interval worsening in the left base. Possible developing left-sided effusion. Jaret Crouch MD Abdomen X-Ray 08/31/17 0000 Signed Impressions: Service Date/Time: Thursday, August 31, 2017 20:34 - CONCLUSION: 1. Nasogastric tube tip in distal stomach. David Jay MD CT Angiography 08/29/17 1849 Signed Impressions: Service Date/Time: Tuesday, August 29, 2017 19:36 - CONCLUSION: 1. Multilobar consolidation. 2. No evidence for pulmonary embolism. 3. Extensive coronary calcifications Pk Bae MD PHYSICAL EXAMINATION: GENERAL: No acute distress. HEENT: Pupils reactive to light. No icterus. Moist oral mucosa. NECK: No swelling. No adenopathy. LUNGS: Rhonchi at the bases. HEART: Regular rate and rhythm. Slight systolic murmur at the left sternal border. ABDOMEN: Bowel sounds present, soft. EXTREMITIES: Ecchymosis at the upper extremities. No edema No clubbing or cyanosis. SKIN: No diffuse rash. NEUROLOGIC: Awake and alert. No gross focal finding. PSYCHIATRIC: Unable to assess. IMPRESSION: 1. Bilateral pneumonia due to Pseudomonas. Last sputum culture from 09/12 has light growth of Pseudomonas. 2. Acute respiratory failure. Extubated. 3. History of lung cancer. RECOMMENDATIONS: 1. Continue Piperacillin/tazobactam plan on giving a 21 day course until 09/20. 2. Continue the Levaquin plan on giving 21 day course until 09/20. 3. Continue to monitor clinical status. Herve Zarate MD September 16, 2017 12:33
--- NOTE | 2017-09-16 12:38 | HHI.HCPN ---
Reason for visit a. To assist with evaluation and management of symptoms including: Shortness of breath, pain, debility b. To assist medical decision maker(s) with: better understanding of current medical conditions; weighing benefits/burdens of medical treatment options; making medical treatment decisions. Subjective/Interval History Patient seen today to follow-up on comfort on mechanical vent, as well as goals of treatment. Medically extubated yesterday. Has been on and off of facemask and nasal cannula. WBC 17. H&H stable. Stool Hemoccult positive, GI consulted. Sputum positive Pseudomonas. Discussed with primary nurse no active signs of GI bleed has been tolerating tube feeding. Discussed with GI REFINER OPERATOR, given patient fragile respiratory status will likely monitor patient labs, GI status and hold off on any invasive procedures as this may end up resulting in patients reintubation. Patient seen in room no visitors present. He is awake, on simple mask. He is able to state the year, hospital, president, his name and date of . When asked why he is in the hospital he tells me he had breathing difficulties. He indicates he does remember being on a ventilator. He appears to otherwise have very limited insight as when I asked him other questions about hospital course he does not answer. Ask him about who is his healthcare surrogate, he confirms his cousin in [place]. Attempted to explore with him reintubation status. Review if his respiratory status again deteriorated he would have the option to go back on a ventilator which would likely be required longer term given his course thus far, but that he would also have the option to not be on a mechanical vent and receive comfort medications and allow his condition to follow a natural course. He tells me he does not think he is ready for breathing tube again I advised that I hope he will not need this type of intervention again but that he is very weak and respiratory status is fragile and he could end up needing ventilation again versus comfort. He does not answer to repeated questioning one way or another other than he hopes to not need a ventilator again. Advised that we may have these discussions with his cousin if he is unable to answer them. Attempt to explore with him his preferences should he require tracheostomy or a longer term feeding tube he again does not answer these questions but stares at me blankly. He does follow simple commands. He moves all 4 extremities with significant weakness. He is mildly tachypneic, respirations mildly labored even at rest. Becomes more so with conversation. Discussed with primary nurse, KEVIN ZAMORA. . Family/friend interactions following exam call to healthcare surrogate cousin Dahiana. Provided update on extubation, current respiratory status, treatments in place, review of recent diagnostics. Review with her my discussion with patient regarding his wishes for ventilation or not going forward. Review with her that while he is mostly oriented I am not clear that he is fully insightful or he just does not want to want to make a decision about reintubation. She asks if he is able to speak on the phone, I explored with her that his voice is very soft and quiet at this point he is also very short of breath I am not sure that she would be able to hear him speaking. She is hopeful that in the coming days he may be able to talk to her more about his wishes. She appears to be struggling to make decisions for him, she feels like if he knows that the reason he has to make his wishes known is to help her that he will in fact make his wishes known. I did explore with her that I am concerned about his insight. She expresses that she feels somewhat hopeful that he may be improving as he is now off of the ventilator, she feels this is a positive sign. I extensively did explore with her underlying conditions remain unchanged and that he is now further debilitated and remains high risk for ongoing respiratory complications and reintubation. I further advised that reintubation would likely mean prolonged or indefinite amount of time on ventilator, and would likely result in requiring tracheostomy and long-term feeding tube. Alternatively explore that this is not his only option, and if this would not be his wishes that he would be allowed to be made comfortable, and allow his disease to follow a natural course with comfort measures in place so he did not suffer. She again expresses that she hopes to not have to make those decisions that Mr. Adams will make them himself. Advised that if he does not make decisions going forward and that would fall to her as the healthcare surrogate if she wishes to continue to do so. She is hopeful he will be able to participate more in the coming days. She does ask questions about how she would go about handling his other affairs such as estate, Social Security etc. advised that I am not certain of those matters though I am aware many people utilize a oil and gas field technician to assist with that. Advise palliative social services counselor can touch base with her to help her in identifying what community resources she may utilize to assist with that. She requests call after 4 if possible. . Advance Directives Health Care Surrogate: Copy in medical record Advance Directive Specifics Date completed: [facility] -April 08, 2017 . Health Care Surrogate(s): HCS- (Long time friend-15 yrs) Kay Rizvi [phone]- (July 2017) Alternate [facility]- Cousin- Dahiana Mayorga [phone] (will serve as HCS) . Objective Vital Signs Date Time Temp Pulse Resp B/P (MAP) Pulse Ox O2 Delivery O2 Flow Rate FiO2 09/16/17 10:00 80 09/16/17 08:18 92 Nasal Cannula 4.00 09/16/17 08:00 84 09/16/17 08:00 99.3 84 178/93 100 09/16/17 07:58 100 Simple Mask 10.00 09/16/17 07:00 100 Simple Mask 10.00 09/16/17 06:00 82 09/16/17 04:00 98.9 75 18 180/94 (122) 95 09/16/17 04:00 75 09/16/17 02:00 78 09/16/17 00:45 92 Simple Mask 10.00 09/16/17 00:00 84 09/16/17 00:00 98.1 84 192/105 (134) 93 09/15/17 23:48 82 179/99 09/15/17 22:00 84 09/15/17 20:00 76 09/15/17 20:00 97.2 76 20 194/116 (142) 94 09/15/17 19:50 92 Nasal Cannula 4.00 09/15/17 19:00 94 Simple Mask 9.00 09/15/17 18:00 84 09/15/17 16:21 93 Nasal Cannula 4.00 09/15/17 16:00 98.3 83 18 171/106 (127) 98 09/15/17 16:00 83 09/15/17 14:15 93 Nasal Cannula 4 09/15/17 14:00 81 Intake & Output 09/16/17 09/16/17 07:00 19:00 Intake Total 200 ml Output Total 850 ml Balance -650 ml Intake IV Total 200 ml Output Urine Total 850 ml # Bowel Movements 0 Physical Exam CONSTITUTIONAL/GENERAL: This is a chronically ill patient, extubated, on facemask O2 TUBES/LINES/DRAINS: Facemask, NGT, PIV, SCDs, Dockery catheter SKIN: No jaundice, rashes, or lesions. Skin tears to bilateral upper extremities. EYES: Pupils 3 mm, reactive. No scleral icterus. No injection or drainage. Fundi not examined. ENT: + NG tube in place. Nose without bleeding or purulent drainage. Moist oral mucosa. CARDIOVASCULAR: irregular,atrial fib bedside monitor. no JVD. RESPIRATORY/CHEST: Symmetric, mildly labored respirations on facemask O2. Lung sounds diminished throughout. Tachypneic at rest, more tachypneic with any conversation. GASTROINTESTINAL: Abdomen soft, non-tender, nondistended. NGT present,clamped. Bowel sounds present. GENITOURINARY: Without palpable bladder distension. Dockery catheter in place. MUSCULOSKELETAL: Extremities without clubbing, cyanosis. Trace Edema to all four extremities. No mottling or clubbing. NEUROLOGICAL: alert, oriented to person, hospital, year, president, his cousin. Follows simple commands with significant generalized weakness. Appears to have very limited to poor insight on hospitalization. Cooperative. PSYCHIATRIC: no apparent anxiety . Diagnostic Tests Laboratory Laboratory Tests Test 09/13/17 18:57 09/14/17 04:43 09/14/17 20:34 09/15/17 04:23 Potassium Level 3.2 MEQ/L (3.5-5.1) 2.8 MEQ/L (3.5-5.1) 3.7 MEQ/L (3.5-5.1) 2.8 MEQ/L (3.5-5.1) White Blood Count 16.3 TH/MM3 (4.0-11.0) 18.7 TH/MM3 (4.0-11.0) Red Blood Count 3.96 MIL/MM3 (4.50-5.90) 3.86 MIL/MM3 (4.50-5.90) Hemoglobin 12.1 GM/DL (13.0-17.0) 11.6 GM/DL (13.0-17.0) Hematocrit 35.3 % (39.0-51.0) 35.0 % (39.0-51.0) Mean Corpuscular Volume 89.3 FL (80.0-100.0) 90.6 FL (80.0-100.0) Mean Corpuscular Hemoglobin 30.5 PG (27.0-34.0) 30.1 PG (27.0-34.0) Mean Corpuscular Hemoglobin Concent 34.2 % (32.0-36.0) 33.2 % (32.0-36.0) Red Cell Distribution Width 19.2 % (11.6-17.2) 19.3 % (11.6-17.2) Platelet Count 175 TH/MM3 (150-450) 179 TH/MM3 (150-450) Mean Platelet Volume 9.1 FL (7.0-11.0) 8.9 FL (7.0-11.0) Neutrophils (%) (Auto) 90.0 % (16.0-70.0) 92.7 % (16.0-70.0) Lymphocytes (%) (Auto) 1.7 % (9.0-44.0) 1.0 % (9.0-44.0) Monocytes (%) (Auto) 8.1 % (0.0-8.0) 6.3 % (0.0-8.0) Eosinophils (%) (Auto) 0.0 % (0.0-4.0) 0.0 % (0.0-4.0) Basophils (%) (Auto) 0.2 % (0.0-2.0) 0.0 % (0.0-2.0) Neutrophils # (Auto) 14.6 TH/MM3 (1.8-7.7) 17.3 TH/MM3 (1.8-7.7) Lymphocytes # (Auto) 0.3 TH/MM3 (1.0-4.8) 0.2 TH/MM3 (1.0-4.8) Monocytes # (Auto) 1.3 TH/MM3 (0-0.9) 1.2 TH/MM3 (0-0.9) Eosinophils # (Auto) 0.0 TH/MM3 (0-0.4) 0.0 TH/MM3 (0-0.4) Basophils # (Auto) 0.0 TH/MM3 (0-0.2) 0.0 TH/MM3 (0-0.2) CBC Comment AUTO DIFF AUTO DIFF Differential Total Cells Counted 100 100 Neutrophils % (Manual) 78 % (16-70) 82 % (16-70) Band Neutrophils % 12 % (0-6) 12 % (0-6) Lymphocytes % 3 % (9-44) Monocytes % 5 % (0-8) 5 % (0-8) Neutrophils # (Manual) 15.0 TH/MM3 (1.8-7.7) 17.8 TH/MM3 (1.8-7.7) Metamyelocytes 2 % (0-1) 1 % (0-1) Differential Comment FINAL DIFF MANUAL FINAL DIFF MANUAL Platelet Estimate NORMAL (NORMAL) NORMAL (NORMAL) Platelet Morphology Comment NORMAL (NORMAL) NORMAL (NORMAL) Acanthocytes OCC (NORMAL) Blood Urea Nitrogen 42 MG/DL (7-18) 41 MG/DL (7-18) Creatinine 1.03 MG/DL (0.60-1.30) 0.98 MG/DL (0.60-1.30) Random Glucose 102 MG/DL (74-106) 109 MG/DL (74-106) Total Protein 6.9 GM/DL (6.4-8.2) 6.5 GM/DL (6.4-8.2) Albumin 3.2 GM/DL (3.4-5.0) 3.1 GM/DL (3.4-5.0) Calcium Level 8.5 MG/DL (8.5-10.1) 8.5 MG/DL (8.5-10.1) Phosphorus Level 3.7 MG/DL (2.5-4.9) 3.9 MG/DL (2.5-4.9) Magnesium Level 2.2 MG/DL (1.5-2.5) 2.3 MG/DL (1.5-2.5) Alkaline Phosphatase 83 U/L (45-117) 83 U/L (45-117) Aspartate Amino Transf (AST/SGOT) 16 U/L (15-37) 14 U/L (15-37) Alanine Aminotransferase (ALT/SGPT) 25 U/L (12-78) 21 U/L (12-78) Total Bilirubin 0.8 MG/DL (0.2-1.0) 1.0 MG/DL (0.2-1.0) Sodium Level 140 MEQ/L (136-145) 139 MEQ/L (136-145) Chloride Level 95 MEQ/L (98-107) 100 MEQ/L (98-107) Carbon Dioxide Level 31.6 MEQ/L (21.0-32.0) 26.5 MEQ/L (21.0-32.0) Anion Gap 13 MEQ/L (5-15) 13 MEQ/L (5-15) Estimat Glomerular Filtration Rate 73 ML/MIN (>89) 78 ML/MIN (>89) Test 09/15/17 12:44 09/15/17 17:58 09/16/17 06:45 09/16/17 08:30 Blood Gas Puncture Site RT RADIAL RT RADIAL Blood Gas Patient Temperature 98.6 98.6 Blood Gas HCO3 27 mmol/L (22-26) 24 mmol/L (22-26) Blood Gas Base Excess 2.5 mmol/L (-2-2) 0.7 mmol/L (-2-2) Blood Gas Oxygen Saturation 96 % (90-100) 82 % (90-100) Arterial Blood pH 7.42 (7.380-7.420) 7.47 (7.380-7.420) Arterial Blood Partial Pressure CO2 41 mmHg (38-42) 34 mmHg (38-42) Arterial Blood Partial Pressure O2 148 mmHg (61-120) 50 mmHg (61-120) Arterial Blood Oxygen Content 15.7 Vol % (12.0-20.0) 12.8 Vol % (12.0-20.0) Arterial Blood Carboxyhemoglobin 1.4 % (0-4) 2.0 % (0-4) Arterial Blood Methemoglobin 1.4 % (0-2) 1.4 % (0-2) Blood Gas Hemoglobin 11.4 G/DL (12.0-16.0) 11.0 G/DL (12.0-16.0) Oxygen Delivery Device VENTILATOR NASAL CANNULA Blood Gas Ventilator Setting CPAP/PS10/EPAP7 Blood Gas Inspired Oxygen 40 % Potassium Level 4.1 MEQ/L (3.5-5.1) 3.2 MEQ/L (3.5-5.1) White Blood Count 17.2 TH/MM3 (4.0-11.0) Red Blood Count 3.55 MIL/MM3 (4.50-5.90) Hemoglobin 10.7 GM/DL (13.0-17.0) Hematocrit 32.4 % (39.0-51.0) Mean Corpuscular Volume 91.2 FL (80.0-100.0) Mean Corpuscular Hemoglobin 30.2 PG (27.0-34.0) Mean Corpuscular Hemoglobin Concent 33.2 % (32.0-36.0) Red Cell Distribution Width 18.9 % (11.6-17.2) Platelet Count 185 TH/MM3 (150-450) Mean Platelet Volume 8.5 FL (7.0-11.0) Neutrophils (%) (Auto) 92.9 % (16.0-70.0) Lymphocytes (%) (Auto) 0.8 % (9.0-44.0) Monocytes (%) (Auto) 5.9 % (0.0-8.0) Eosinophils (%) (Auto) 0.0 % (0.0-4.0) Basophils (%) (Auto) 0.4 % (0.0-2.0) Neutrophils # (Auto) 16.0 TH/MM3 (1.8-7.7) Lymphocytes # (Auto) 0.1 TH/MM3 (1.0-4.8) Monocytes # (Auto) 1.0 TH/MM3 (0-0.9) Eosinophils # (Auto) 0.0 TH/MM3 (0-0.4) Basophils # (Auto) 0.1 TH/MM3 (0-0.2) CBC Comment DIFF FINAL Differential Comment Blood Urea Nitrogen 32 MG/DL (7-18) Creatinine 0.81 MG/DL (0.60-1.30) Random Glucose 84 MG/DL (74-106) Total Protein 7.0 GM/DL (6.4-8.2) Albumin 3.0 GM/DL (3.4-5.0) Calcium Level 9.2 MG/DL (8.5-10.1) Phosphorus Level 2.7 MG/DL (2.5-4.9) Magnesium Level 2.4 MG/DL (1.5-2.5) Alkaline Phosphatase 79 U/L (45-117) Aspartate Amino Transf (AST/SGOT) 17 U/L (15-37) Alanine Aminotransferase (ALT/SGPT) 20 U/L (12-78) Total Bilirubin 1.2 MG/DL (0.2-1.0) Sodium Level 144 MEQ/L (136-145) Chloride Level 109 MEQ/L (98-107) Carbon Dioxide Level 23.9 MEQ/L (21.0-32.0) Anion Gap 11 MEQ/L (5-15) Estimat Glomerular Filtration Rate 97 ML/MIN (>89) Blood Gas Liter Flow 4 L/M Result Diagram: 09/16/17 0645 09/16/17 0645 Imaging Last Impressions Abdomen X-Ray 09/15/17 0000 Signed Impressions: Service Date/Time: Friday, September 15, 2017 08:57 - CONCLUSION: Nonobstructive bowel gas pattern. Eloy Georges MD Chest X-Ray 09/14/17 0600 Signed Impressions: Service Date/Time: Thursday, September 14, 2017 05:14 - CONCLUSION: 1. Left basilar airspace disease with small to moderate left effusion. Marked improvement in right basilar airspace disease since September 12. David Jay MD CT Angiography 08/29/17 1849 Signed Impressions: Service Date/Time: Tuesday, August 29, 2017 19:36 - CONCLUSION: 1. Multilobar consolidation. 2. No evidence for pulmonary embolism. 3. Extensive coronary calcifications Pk Bae MD Procedures 08/29/17-intubation 08/31/17-self extubation 08/31/17-reintubated 09/15/17-medically extubated . Assessment and Plan Disease Oriented Problem List: (1) Acute respiratory failure with hypoxia and hypercarbia (2) Lung cancer (3) Atrial fibrillation with RVR (4) Lung consolidation (5) COPD (chronic obstructive pulmonary disease) Symptom Scale: (1) Shortness of breath 0-10 Scale: Unable to quantify Comment: Hx of lung cancer. CT angiography revealed multilobar consolidation and no evidence for pulmonary embolism, extensive coronary calcifications. . (2) Pain 0-10 Scale: Unable to quantify Comment: Risk for pain-from procedure (intubation), bedbound status. . (3) Debility 0-10 Scale: Unable to quantify Comment: Progressive . Pertinent Non-Medical Issues Psychosocial:Patient was born and raised in [place]. He left [place] at the age of 20. Patient moved to [place] in 1975. Patient has a 2 years college degree in electronics technology. Patient worked for an [employer] as well as a [employer] company. Patient was and twice. He never had children. Spiritual:N mormon affiliation Legal:Patient has a [facility] form signed and completed a Community DNR Ethical issues impacting care:None identified at this time . Important Contacts Alternate [facility]- Cousin- Dahiana Mayorga [phone] Friend-Nemo [phone] XXX HCS- (Long time friend-15 yrs) Kay Rizvi [phone]- . Prognosis Mr Adams is a 61 years old male with a past medical history significant of lung cancer s/p radiation, COPD, hypertension, coronary artery disease and tobacco use. Patient presented to the ER via EMS on 08/29/17 complaining of shortness of breath that had started the night before, generalized malaise and weakness. Clinical course complicated with atrial fibrillation with RVR, and acute hypoxic and hypercapnic respiratory failure. Given ongoing comorbidities , patient remains at high risk for further complications, deterioration and decline. . Code Status: Full Code Plan Legal decision maker: Patient has been medically extubated and may be able to participate some in decision making as of 09/16/17 though appears insight is limited. Would still recommend shared decision making using healthcare surrogate cousin Dahiana Mayorga. Goals: Remain Aggressive , attempted to explore patient wishes regarding reintubation and goals going forward he appears to have limited insight and will not make his wishes known either way. Attempted to explore this with his healthcare surrogate and cousin she is still hopeful that he will be able to make the decisions and so has chosen to wait to make any further decisions until he can give his opinion. CODE STATUS: Full code SYMPTOMS: * Shortness of breath: Patient has history of lung cancer, COPD and tobacco use. Patient presented with shortness of breath. Intubated 08/29, self extubated 08/31, reintubated 08/31 secondary to respiratory failure. Solu-Medrol and duo nebs prn. Had not been tolerating CPAP for longer than a couple hours-- medically extubated 09/15. On and off of facemask. High risk for reintubation. Will likely require longer term intubation, tracheostomy if reintubated a third time this admission. Not clear at this time what patient's wishes are regarding reintubation versus comfort. * Pain: Patient is at risk for pain, required intubation in the ER. Currently bedbound. Denies pain today. Medically extubated. * Debility: Progressive: Hx of lung cancer s/p radiation. Multiple hospitalizations. Physical therapy following recommending physical therapy at rehab. Remains very weak. . Palliative care will continue to follow the patient during hospital course as condition evolves, to assist patient/decision-maker with understanding of their medical conditions, weighing benefits/burdens of treatment options, for clarification of goals of treatment. Additionally will assist with any symptoms of palliative concern Time Spent Total Floor Time (mins): 35 (Discussion with patient, PE, chart review, discussion with family, discussion with nursing) Attestation To help prompt me to consider important information that might be impacting today's encounter and assessment, information from prior notes written by myself or my colleagues may have been "brought forward" into today's note. My signature on this note, however, is an attestation that I personally performed the exam, history, and/or decision-making noted today, and, unless otherwise indicated, the interactions with patient, family, and staff as well as the review of records all occurred today. I also attest that the listed assessment and stated plan reflect my best clinical judgment today based on the combination of historical information, prior notes, and today's exam/ interactions. When time spent is documented, it refers only to time spent today by the signer, or if indicated, combined time spent today by collaborating physician/nurse practitioner. Lynnette Hamilton September 16, 2017 12:38
--- NOTE | 2017-09-16 13:42 | PD.CONS ---
HPI History of Present Illness This is a 61 year old male with lung ca on chemo and radiation who presented with SOB and was found to be in AF with RVR. He was intubated. Recently extubated. GI is consulted for anemia and heme pos stool. Per nursing staff there has been no blood in the stool or black tarry stools. he did have an episode of n/v few days ago with nonbloody emesis. He denies abd pain. His HH has been periodically drifting down after blood transfusions. Pt has never had EGD or colonoscopy. Hx limited, pt is SOB to conversation. (Joann Rubio) PFSH Past Medical History Lung cancer stage III s/p radiation Hypertension Coronary artery disease COPD Anxiety Tobacco use . Past Surgical History Atherectomy of the left anterior descending with a bare-metal stent in 2013. Abdominal Surgery . (Joann Rubio) Coded Allergies: No Known Allergies (Verified Allergy, Unknown, 08/29/17) Family History Father -he had a heart attack at age 52 Mother from CHF complications . Social History + tobacco use (Joann Rubio) Review of Systems Respiratory: COMPLAINS OF: Shortness of breath Gastrointestinal: DENIES: Abdominal pain otherwise noncontributory (Joann Rubio) GI Exam Vitals I&O Vital Signs Date Time Temp Pulse Resp B/P (MAP) Pulse Ox O2 Delivery O2 Flow Rate FiO2 09/16/17 12:00 88 09/16/17 12:00 98.9 88 29 173/97 (122) 91 09/16/17 10:00 80 09/16/17 08:18 92 Nasal Cannula 4.00 09/16/17 08:00 84 09/16/17 08:00 99.3 84 178/93 100 09/16/17 07:58 100 Simple Mask 10.00 09/16/17 07:00 100 Simple Mask 10.00 09/16/17 06:00 82 09/16/17 04:00 98.9 75 18 180/94 (122) 95 09/16/17 04:00 75 09/16/17 02:00 78 09/16/17 00:45 92 Simple Mask 10.00 09/16/17 00:00 84 09/16/17 00:00 98.1 84 192/105 (134) 93 09/15/17 23:48 82 179/99 09/15/17 22:00 84 09/15/17 20:00 76 09/15/17 20:00 97.2 76 20 194/116 (142) 94 09/15/17 19:50 92 Nasal Cannula 4.00 09/15/17 19:00 94 Simple Mask 9.00 09/15/17 18:00 84 09/15/17 16:21 93 Nasal Cannula 4.00 09/15/17 16:00 98.3 83 18 171/106 (127) 98 09/15/17 16:00 83 09/15/17 14:15 93 Nasal Cannula 4 09/15/17 14:00 81 I/O 09/15/17 09/15/17 09/15/17 09/16/17 09/16/17 09/16/17 07:00 15:00 23:00 07:00 15:00 23:00 Intake Total 885 ml 100 ml 1640 ml 200 ml Output Total 1650 ml 850 ml 850 ml Balance -765 ml 100 ml 790 ml -650 ml Intake IV Total 500 ml 100 ml 1440 ml 200 ml Tube Feeding 85 ml Other 300 ml 200 ml Output Urine Total 1350 ml 850 ml 850 ml Gastric Drainage Total 300 ml # Bowel Movements 2 0 0 Imaging Last Impressions Abdomen X-Ray 09/15/17 0000 Signed Impressions: Service Date/Time: Friday, September 15, 2017 08:57 - CONCLUSION: Nonobstructive bowel gas pattern. Eloy Georges MD Chest X-Ray 09/14/17 0600 Signed Impressions: Service Date/Time: Thursday, September 14, 2017 05:14 - CONCLUSION: 1. Left basilar airspace disease with small to moderate left effusion. Marked improvement in right basilar airspace disease since September 12. David Jay MD CT Angiography 08/29/17 8256 Signed Impressions: Service Date/Time: Tuesday, August 29, 2017 19:36 - CONCLUSION: 1. Multilobar consolidation. 2. No evidence for pulmonary embolism. 3. Extensive coronary calcifications Pk Bae MD Laboratory Test 09/15/17 17:58 09/16/17 06:45 09/16/17 08:30 Potassium Level 4.1 MEQ/L 3.2 MEQ/L White Blood Count 17.2 TH/MM3 Red Blood Count 3.55 MIL/MM3 Hemoglobin 10.7 GM/DL Hematocrit 32.4 % Mean Corpuscular Volume 91.2 FL Mean Corpuscular Hemoglobin 30.2 PG Mean Corpuscular Hemoglobin Concent 33.2 % Red Cell Distribution Width 18.9 % Platelet Count 185 TH/MM3 Mean Platelet Volume 8.5 FL Neutrophils (%) (Auto) 92.9 % Lymphocytes (%) (Auto) 0.8 % Monocytes (%) (Auto) 5.9 % Eosinophils (%) (Auto) 0.0 % Basophils (%) (Auto) 0.4 % Neutrophils # (Auto) 16.0 TH/MM3 Lymphocytes # (Auto) 0.1 TH/MM3 Monocytes # (Auto) 1.0 TH/MM3 Eosinophils # (Auto) 0.0 TH/MM3 Basophils # (Auto) 0.1 TH/MM3 CBC Comment DIFF FINAL Differential Comment Blood Urea Nitrogen 32 MG/DL Creatinine 0.81 MG/DL Random Glucose 84 MG/DL Total Protein 7.0 GM/DL Albumin 3.0 GM/DL Calcium Level 9.2 MG/DL Phosphorus Level 2.7 MG/DL Magnesium Level 2.4 MG/DL Alkaline Phosphatase 79 U/L Aspartate Amino Transf (AST/SGOT) 17 U/L Alanine Aminotransferase (ALT/SGPT) 20 U/L Total Bilirubin 1.2 MG/DL Sodium Level 144 MEQ/L Chloride Level 109 MEQ/L Carbon Dioxide Level 23.9 MEQ/L Anion Gap 11 MEQ/L Estimat Glomerular Filtration Rate 97 ML/MIN Blood Gas Puncture Site RT RADIAL Blood Gas Patient Temperature 98.6 Blood Gas HCO3 24 mmol/L Blood Gas Base Excess 0.7 mmol/L Blood Gas Oxygen Saturation 82 % Arterial Blood pH 7.47 Arterial Blood Partial Pressure CO2 34 mmHg Arterial Blood Partial Pressure O2 50 mmHg Arterial Blood Oxygen Content 12.8 Vol % Arterial Blood Carboxyhemoglobin 2.0 % Arterial Blood Methemoglobin 1.4 % Blood Gas Hemoglobin 11.0 G/DL Oxygen Delivery Device NASAL CANNULA Blood Gas Liter Flow 4 L/M Date/Time Source Procedure Growth Status 08/29/17 20:40 Blood Peripheral Aerobic Blood Culture - Final Staphylococcus Hominis-Hominis Complete 08/29/17 20:40 Blood Peripheral Anaerobic Blood Culture - Final NO GROWTH IN 5 DAYS Complete 09/11/17 18:30 Stool Stool Stool Occult Blood (ANDREW) - Final HEMOCCULT POSITIVE Complete 09/11/17 17:30 Sputum Endotracheal Gram Stain - Final Complete 09/11/17 17:30 Sputum Culture - Final Pseudomonas Aeruginosa Complete 08/29/17 19:10 Urine Catheterized Urine Streptococcus pneumoniae Antigen (M - Final PRESUMPTIVE NEGATIVE FOR STREPTOCOCCU... Complete Physical Examination HEENT: PERRL; normocephalic; atraumatic; no jaundice. partial rebreather CHEST: coarse, rhonchi, SOB to conversation, respirations labored, tachypneic CARDIAC: RRR ABDOMEN: Soft, nondistended, nontender; no hepatosplenomegaly; bowel sounds are present in all four quadrants. EXTREMITIES: No clubbing, cyanosis, or edema. SKIN: Normal; no rash; no jaundice. AIR POLLUTION ANALYST: weak, lethargic (Joann Rubio) Assessment and Plan Plan ASSESSMENT - anemia - likely multifactorial. HH periodically drifts down. has had blood transfusion 08/30 and 09/11. currently hgb is 10.7 - heme pos stool - no visible bleeding. never had EGD or colonoscopy. not stable for endoscopy at this time, recently extubated and exhibiting labored breathing, SOB to conversation - lung ca, respiratory failure, PNA - per CCM. palliative care following PLAN - EGD and colonoscopy when stable - monitor labs - transfuse if needed - notify GI of active bleeding - NPO per [employer]NA[employer] pt seen by myself and Dr Grace and this note is on her behalf (Joann Rubio) Physician Comments seen, examined agree with above (Sil Grace MD) Joann Rubio September 16, 2017 13:42 Sil Grace MD September 16, 2017 16:41
[2017-09-16] MEDS: DILTIAZEM HCL 60 MG TAB PO SCH ×3 (14:26→23:54)
[2017-09-17] VITALS (20 sets, daily range): BP systolic 108–183; BP diastolic 62–109; PULSE 58–109; RESP 18; TEMP 97.7–98.4; O2SAT 89–100
[2017-09-17] MEDS ORDERED: PROPOFOL 500 MG/50 ML INJ 50 ML ONE (02:37)
[2017-09-17] MEDS ORDERED: ETOMIDATE 40 MG/20 ML VIAL ONE (02:37)
[2017-09-17] MEDS ORDERED: ROCURONIUM INJ 50 MG/5 ML VIAL ONE (02:38)
[2017-09-17] MEDS ORDERED: ROCURONIUM INJ 50 MG/5 ML VIAL IV ONE (02:45)
[2017-09-17] MEDS ORDERED: ETOMIDATE 20 MG/10 ML VIAL IV PUSH ONE (02:45)
--- NOTE | 2017-09-17 02:59 | PD.PROCEDR ---
Procedure Note Procedure PROCEDURE NOTE PROCEDURE: Endotracheal intubation INDICATION: Acute hypoxemic respiratory failure DETAILS OF PROCEDURE: The patient is not capacitated for medical decision-making. He is obtunded and in profound respiratory distress and not able to answer questions. I reviewed palliative care documentation. The alternate healthcare surrogate is Dahiana Mayorga. I called her and discussed his condition. She states she was hopeful that he would be able to make his own decisions however at this current time he is not capacitated. Ultimately she decided to proceed with reintubation and mechanical ventilation. She is aware that there may need to be decision regarding whether or not to proceed with tracheostomy and she says she would like to involve other family members in that decision. The patient was placed in optimal position and preoxygenated with 100% FiO2 via [id number]. Oximeter oxygen saturation of 94% was obtained prior to direct laryngoscopy. The patient was administered etomidate 20 mg IV for sedation and rocuronium 50 mg IV. Direct laryngoscopy was performed with a 2 Elias laryngoscope blade. There were dried blood clots at the glottis that were removed with suction and a grade I Cormack-Lehane view was obtained. On single attempt a size 8.0 endotracheal tube was visualized passing through the cords. Correct placement was confirmed with colorimetric CO2 detector. Breath sounds were equal bilaterally. No sounds auscultated over the stomach. The endotracheal tube was secured with a commercial tube mg at a depth of 23 cm at the lips. The patient was connected to the ventilator. The patient tolerated the procedure well without any apparent complication. Oxygen saturations were maintained greater than 93% at all times. Stat chest x-ray was ordered. Rosalinda Ribera MD September 17, 2017 02:59
[2017-09-17] MEDS: RESP: ALBUTEROL 2.5 MG/IPRATROPIUM 0.5 MG NEB (SCH) NEB ×5 (03:11→20:10)
[2017-09-17] MEDS: CHLORHEXIDINE GLUCONATE 2 % 1 PACK (2 CLOTHS) TOP SCH (04:00)
--- NOTE | 2017-09-17 04:41 | RADRPT ---
EXAM DATE/TIME: 09/17/2017 03:03 [facility] COMPARISON: CHEST SINGLE AP, September 14, 2017, 5:14. INDICATIONS : Shortness of breath. MEDICAL HISTORY : Hypertension. Chronic obstructive pulmonary disease. Carcinoma, lung. SURGICAL HISTORY : None. ENCOUNTER: Subsequent ACUITY: 1 week PAIN SCORE: Non-responsive. LOCATION: Bilateral chest FINDINGS: Tip of the endotracheal tube 4 cm proximal to the evelia. Nasogastric tube coiled in the stomach. Wor sening bilateral pulmonary infiltrates. These are most pronounced in the bases. Stable small left eff usion. Heart is normal in size. CONCLUSION: Worsening bilateral pulmonary infiltrates with small left effusion. Jessee Gilliam Jr., MD on September 17, 2017 at 4:38 Board Certified Radiologist. This report was verified electronically.
[2017-09-17] MEDS: PIPERACIL-TAZO 4.5 GM PREMIX 100 ML IV SCH ×4 (05:47→21:57)
[2017-09-17] MEDS: fentaNYL DRIP 250 ML IV PRN ×2 (05:47→21:57)
[2017-09-17] MEDS: PROPOFOL 1000 MG/100 ML INJ 100 ML IV PRN ×3 (05:47→18:07)
[2017-09-17 05:48] LABS: AUTOMATED NEUTROPHIL # 14.1 TH/MM3 (1.8-7.7); BASOPHIL # 0.1 TH/MM3 (0-0.2); BASOPHIL % 0.4 % (0.0-2.0); HEMATOCRIT 33.1 % (39.0-51.0); LYMPH % 0.6 % (9.0-44.0); LYMPHOCYTE # 0.1 TH/MM3 (1.0-4.8); MEAN CELL VOLUME 91.7 FL (80.0-100.0); MEAN CORPUSCULAR HEMOGLOBIN 30.6 PG (27.0-34.0); MEAN CORPUSCULAR HGB CONC 33.4 % (32.0-36.0); MEAN PLATELET VOLUME 8.2 FL (7.0-11.0); MONO % 2.5 % (0.0-8.0); MONOCYTE # 0.4 TH/MM3 (0-0.9); NEUT % 96.5 % (16.0-70.0); PLATELET COUNT 189 TH/MM3 (150-450); RED CELL DISTRIBUTION WIDTH 19.7 % (11.6-17.2); WHITE BLOOD COUNT 14.6 TH/MM3 (4.0-11.0)
[2017-09-17] MEDS: ISOSORBIDE DINITRATE 10 MG TAB PO SCH ×3 (05:48→22:42)
[2017-09-17] MEDS: DILTIAZEM HCL 60 MG TAB PO SCH ×3 (05:48→18:07)
[2017-09-17] MEDS: methylPREDNISolone SOD SUCC 40 MG/1 ML VIAL IV PUSH SCH ×3 (05:48→18:07)
[2017-09-17] MEDS: hydrALAZINE HCL 25 MG TAB PO SCH ×3 (05:49→22:00)
[2017-09-17] MEDS: ARTIFICIAL TEARS OPTH SOLN 15 ML BTL EACH EYE SCH ×3 (05:49→22:00)
[2017-09-17] MEDS: INSULIN NovoLIN REGULAR SUPPLEMENTAL SCALE SQ SCH ×3 (06:00→17:05)
[2017-09-17 06:21] LABS: ALBUMIN 3.2 GM/DL (3.4-5.0); ALT (GPT) 20 U/L (12-78); AST (GOT) 16 U/L (15-37); BICARBONATE 25.2 MEQ/L (21.0-32.0); BLOOD UREA NITROGEN 39 MG/DL (7-18); CALCIUM 9.3 MG/DL (8.5-10.1); CHLORIDE 112 MEQ/L (98-107); CREATININE 0.99 MG/DL (0.60-1.30); GLOMERULAR FILTRATION RATE 77 ML/MIN (>89); GLUCOSE,RANDOM 159 MG/DL (74-106); SODIUM (NA) 148 MEQ/L (136-145)
[2017-09-17 06:23] LABS: ALKALINE PHOSPHATASE 84 U/L (45-117); TOTAL BILIRUBIN ADULT 0.9 MG/DL (0.2-1.0); TOTAL PROTEIN 6.7 GM/DL (6.4-8.2)
[2017-09-17] MEDS: CHLORHEXIDINE 0.12% (ORAL KIT) 15 ML CUP MT SCH ×4 (08:00→20:00)
[2017-09-17] MEDS: METOPROLOL TARTRATE 50 MG TAB PO SCH ×2 (08:18→21:00)
[2017-09-17] MEDS: PRAVASTATIN SOD 10 MG TAB PO SCH (08:18)
[2017-09-17] MEDS: DOCUSATE SODIUM 50 MG/SENNA 8.6 MG TAB PO SCH ×2 (08:18→22:42)
[2017-09-17] MEDS: LANSOPRAZOLE SOLUTAB 30 MG TAB NG SCH (08:19)
--- NOTE | 2017-09-17 09:42 | HHI.CCPN ---
Subjective Remarks/Hospital Course 08/29: This is a 61-year-old male with a history of lung cancer undergoing current chemotherapy and radiation who was recently admitted on 07/19 for aspiration pneumonia. During that admission he did have episodes of paroxysmal atrial fibrillation and had an echo from 04/2017 showing an EF of 50-55%. He represents today to the emergency department with acute shortness of breath since last night. Per the ER documentation, he denies any coughing, fever, chills, or other recent symptoms or changes other than the new dyspnea. In the emergency department he was found to be in A. fib with RVR. This initially converted to sinus rhythm 1 after diltiazem 20 mg IV bolus, but then very quickly went back into atrial for ablation with rapid ventricular response. 2 doses of adenosine were not able to convert it. The patient was loaded with amiodarone and infusion was started. After this, the patient become acutely hypoxemic requiring emergent intubation. Please refer to the emergency room physician documentation for additional details regarding the decompensation. When I came to evaluate patient, the patient was recently intubated, sedated. No additional information is available from the patient due to his clinical condition. Review of systems is unobtainable. Critical care medicine is consulted to evaluate manage his acute hypoxic respiratory failure along with his acute supraventricular tachycardia. 08/30: Patient remains intubated and sedated. FiO2 down to 0.5. Patient continues to be on amiodarone infusion and heparin drip. Sedation achieved with propofol and fentanyl. Patient remains hypothermic requiring Gracia hugger, urine output 350 mL's documented since admission. 08/31: No events over the night. Patient remains intubated and sedated. Hemoglobin more stable posttransfusion. Hypothermia resolved, T-max of 100.3. Urine output remains low, 635 mL's over the last 24 hours. Oxygenation is improved. No family present at bedside. Patient remains in sinus rhythm, on amiodarone infusion. No report of melena, hematochezia or coffee-ground aspirate from NG tube. Morning chest x-ray reviewed, worsening infiltrates over the right thorax, unchanged consolidation over the left. 09/01: Afebrile. Patient was extubated yesterday afternoon and emergently intubated 1030 last night secondary to hypoxemic respiratory failure. This x- ray pending this a.m.. The patient also was noted to have severe metabolic acidosis and sodium bicarbonate infusion was initiated. Patient noted to have Pseudomonas, and placed on Zosyn. Patient continues to have leukocytosis with worsening pneumonia ID has been consulted appreciate recommendations. Patient previously DNR palliative has been consulted up on hypoxemic respiratory failure patient was noted to request intubation at that time. Palliative care consult pending. Patient continues on amiodarone infusion now in sinus rhythm. Amiodarone infusion discontinued the patient continued on metoprolol and Cardizem home medications. Hemoglobin appears stable status post 2 units transfusion 48 hours ago. Will do serial H&H's aspirin reinitiated will hold Plavix for now, and continue to follow. Subcu heparin initiated. 09/02: Afebrile. Hemoglobin stable for the last 24 hours. Plan to restart tube feeds this a.m.. Metabolic acidosis resolved, patient's sodium bicarbonate discontinued. Patient requiring increasing FiO2 requirements during the night , now at 100% ABG pending. This am chest x-ray worsening. 09/03: Late entry note patient seen at 8:15 AM .afebrile. Chest x-ray continues to worsen. FiO2 requirement slightly decreased we will attempt CPAP trials today. 09/04: Afebrile. patient awake and following commands this a.m. Currently on CPAP trials. FiO2 weaned to 45% 09/05: Afebrile. Patient tolerating CPAP trials. She noted to have elevated blood glucose level secondary methylprednisolone. Chest x-ray now improving methylprednisolone taper initiated. Patient noted to still have episodes of hypertension Cardizem increased to 90 mg every 6 hours. 09/06: Patient currently in a flutter. Received adenosine 12 mg 1 which feels a flutter. Echocardiogram CPK and troponin ordered. TSH normal during this hospitalization. Potassium magnesium both normalized. Arousable and follows commands. Subjective 09/07: Patient is currently on PSV trial 20/8 ~35%. Patient oscillating on CODE STATUS. Tolerating tube feeds. Remains in normal sinus rhythm on amiodarone drip. 09/08: No events over the night. CPAP trial was attempted this morning patient went into A. fib with RVR after 15 minutes. Patient was switched back to full support, and converted to sinus rhythm. He continues to be on amiodarone infusion and heparin drip. He is lethargic but easily arousable able to follow some commands. FiO2 at 0.5 and PEEP at 8. T-max of 99. 09/09: No events over the night. T-max of 98.9. Patient remains intubated and sedated, on propofol and fentanyl. CPAP trial attempted this morning again and patient went into A. fib with RVR and hypoxia, therefore he was placed back on PRVC. No family present at bedside. Urine output of 2350 mL over the last 24 hours. He is +22 L since admission charting is correct. 09/10: No events over the night. This morning patient is in A. fib with RVR heart rate 150, hemodynamically stable. Patient had excellent response to diuresis, urine output greater than 4 L over the last 24 hours. T-max of 98.5. No family present at bedside. Morning chest x-ray reviewed. 09/11: Patient did well over the night. He remains in sinus rhythm on amiodarone infusion. Patient was started on Lasix drip yesterday with great urine output. Patient is negative approximately 2.5 L over the last 24 hours. Afebrile, with Tmax of 99.9. Oxygenation down to 40%. 09/12: No events over the night. Patient remains afebrile with a T-max of 99.4. Patient continues to be on Lasix drip with good urine output however he still on positive fluid balance over the last 24 hours. Lasix drip increased to 7.5 mg/h this morning. He continues to be on amiodarone infusion, and sedation with propofol and fentanyl. Patient is awake, weak, following some commands. Oxygenation not significantly improved, still requiring PEEP of 7 and 50% O2. Morning chest x-ray reviewed, ET tube is in good position, no significant change compared to 2 days ago. 09/13: No events over the night. Patient remains intubated and sedated. Afebrile over the night with a T-max of 98.9. -1.5 L over the last 24 hours. 09/14 Patient is intubated and sedated with Fentanyl drip. On Amio and Lasix drips. UOP: 4.1 L overnight. 09/15 Patient remains intubated and sedated. off Lasix drip. TF held for emesis/ high residuals. Patient was in Afib with RVR and restarted on Amio drip overnight. (Amio was held during day yesterday for bradycardia) 09/16 Patient was extubated yesterday on 10L simple mask. Awake. Afebrile. Remains on Amio drip. 09/17 Patient was reintubated during night sedated with Diprivan and fentanyl drips. Afebrile. Objective Vital Signs Date Time Temp Pulse Resp B/P (MAP) Pulse Ox O2 Delivery O2 Flow Rate FiO2 09/17/17 08:34 97 45 09/17/17 08:00 86 09/17/17 08:00 98.0 128/67 (87) 09/17/17 01:50 Non-Rebreather 15.00 09/16/17 20:00 24 Intake and Output 09/17/17 09/17/17 09/18/17 08:00 16:00 00:00 Intake Total 676 ml Output Total 780 ml Balance -104 ml Result Diagram: 09/17/17 0530 09/17/17 0530 Other Results Laboratory Tests Test 09/16/17 16:41 09/16/17 20:50 09/17/17 03:51 09/17/17 05:30 Blood Gas Puncture Site RT RADIAL RT RADIAL Blood Gas Patient Temperature 98.6 98.6 Blood Gas HCO3 23 mmol/L 24 mmol/L Blood Gas Base Excess 0.3 mmol/L -0.1 mmol/L Blood Gas Oxygen Saturation 92 % 97 % Arterial Blood pH 7.49 7.38 Arterial Blood Partial Pressure CO2 31 mmHg 42 mmHg Arterial Blood Partial Pressure O2 78 mmHg 319 mmHg Arterial Blood Oxygen Content 14.3 Vol % 15.8 Vol % Arterial Blood Carboxyhemoglobin 2.1 % 1.3 % Arterial Blood Methemoglobin 1.5 % 1.4 % Blood Gas Hemoglobin 11.0 G/DL 11.0 G/DL Oxygen Delivery Device SIMPLE MASK VENTILATOR Blood Gas Liter Flow 10 L/M Potassium Level 4.7 MEQ/L 4.1 MEQ/L Blood Gas Ventilator Setting PRVC/AC Blood Gas Inspired Oxygen 100 % White Blood Count 14.6 TH/MM3 Red Blood Count 3.60 MIL/MM3 Hemoglobin 11.0 GM/DL Hematocrit 33.1 % Mean Corpuscular Volume 91.7 FL Mean Corpuscular Hemoglobin 30.6 PG Mean Corpuscular Hemoglobin Concent 33.4 % Red Cell Distribution Width 19.7 % Platelet Count 189 TH/MM3 Mean Platelet Volume 8.2 FL Neutrophils (%) (Auto) 96.5 % Lymphocytes (%) (Auto) 0.6 % Monocytes (%) (Auto) 2.5 % Eosinophils (%) (Auto) 0.0 % Basophils (%) (Auto) 0.4 % Neutrophils # (Auto) 14.1 TH/MM3 Lymphocytes # (Auto) 0.1 TH/MM3 Monocytes # (Auto) 0.4 TH/MM3 Eosinophils # (Auto) 0.0 TH/MM3 Basophils # (Auto) 0.1 TH/MM3 CBC Comment DIFF FINAL Differential Comment Blood Urea Nitrogen 39 MG/DL Creatinine 0.99 MG/DL Random Glucose 159 MG/DL Total Protein 6.7 GM/DL Albumin 3.2 GM/DL Calcium Level 9.3 MG/DL Alkaline Phosphatase 84 U/L Aspartate Amino Transf (AST/SGOT) 16 U/L Alanine Aminotransferase (ALT/SGPT) 20 U/L Total Bilirubin 0.9 MG/DL Sodium Level 148 MEQ/L Chloride Level 112 MEQ/L Carbon Dioxide Level 25.2 MEQ/L Anion Gap 11 MEQ/L Estimat Glomerular Filtration Rate 77 ML/MIN Imaging Last Impressions Chest X-Ray 09/17/17 0000 Signed Impressions: Service Date/Time: September 03:03 - CONCLUSION: Worsening bilateral pulmonary infiltrates with small left effusion. Jessee Gilliam Jr., MD Abdomen X-Ray 09/15/17 0000 Signed Impressions: Service Date/Time: Friday, September 15, 2017 08:57 - CONCLUSION: Nonobstructive bowel gas pattern. Eloy Georges MD CT Angiography 08/29/17 1849 Signed Impressions: Service Date/Time: Tuesday, August 29, 2017 19:36 - CONCLUSION: 1. Multilobar consolidation. 2. No evidence for pulmonary embolism. 3. Extensive coronary calcifications Pk Bae MD Objective Remarks General - elderly gentleman on 10L simple mask HEENT - pupils are equal, reactive, sclerae are anicteric, neck is supple, no rigidity, no JVD,, + NGT CV - regular S1 and S2, no murmurs Chest - B/L equal air entry Abdomen - remains soft, bowel sounds present, nontender, not distended Extremities - No c/c, + 1 edema Neuro Awake, alert A/P Problem List: (1) OBED (acute kidney injury) ICD Code: N17.9 - Acute kidney failure, unspecified (2) Severe protein-calorie malnutrition ICD Code: E43 - Unspecified severe protein-calorie malnutrition Status: Chronic (3) Shortness of breath ICD Code: R06.02 - Shortness of breath Status: Acute (4) Tobacco abuse ICD Code: Z72.0 - Tobacco use Status: Chronic (5) Paroxysmal A-fib ICD Code: I48.0 - Paroxysmal atrial fibrillation Status: Chronic (6) Atrial fibrillation with RVR ICD Code: I48.91 - Unspecified atrial fibrillation Status: Resolved (7) PNA (pneumonia) ICD Code: J18.9 - Pneumonia, unspecified organism (8) COPD (chronic obstructive pulmonary disease) ICD Code: J44.9 - Chronic obstructive pulmonary disease, unspecified (9) Lung cancer ICD Code: C34.90 - Malignant neoplasm of unspecified part of unspecified bronchus or lung (10) Debility ICD Code: R53.81 - Other malaise Status: Chronic (11) Pain ICD Code: R52 - Pain, unspecified Status: Chronic (12) Lung consolidation ICD Code: J18.1 - Lobar pneumonia, unspecified organism Status: Acute (13) Acute respiratory failure with hypoxia and hypercarbia ICD Code: J96.01 - Acute respiratory failure with hypoxia; J96.02 - Acute respiratory failure with hypercapnia Assessment and Plan 1. VDRF- Extubated 09/15, reintubated 09/17 2. Pseudomonas pneumonia -patient remains afebrile 3. Acute COPD exacerbation -resolved 4. Lung cancer currently undergoing radiation therapy and chemotherapy prior to hospitalization 5. Atrial fibrillation with rapid ventricular response -multiple recurrences during the admission, currently in sinus rhythm 6. Elevated troponin - trending down 7. Acute blood loss anemia -reoccurred, this morning's hemoglobin at 6.3. No clear evidence of bleed, no melena no hematemesis no hematochezia 8. OBED -resolved Plan Neuro: On Diprivan, Fentanyl infusion for sedation. Daily sedation vacation Pulm: Continue with vent support keep sats >92% Bronchodilators, ICU vent bundle. On Solumederol 40mg IV Q6 Patient will likely need trach/PEG if healthcare surrogate cousin Dahiana Mayorga is agreeable. CV: Monitor HR and BP keep MAP>65mmHg Cardizem 60mg Q6, Hydralazine 50mg Q8 for BP control, Isordil 10mg Q8, Lopressor 50mg Q12 Continue statin Echo showed EF 40-45% : Monitor renal function, I/O's, electrolytes replacement per protocol Diurese with Lasix 40mg x1 Add Free water 250ml Q8 monitor sodium level. GI: Continue tube feeds via NGT( Jevity 1.with goal rate 50ml/hr) KUB abdomen 09/15 : Non obstructive bowel gas pattern GI is following will need EGD/colonoscopy when stable. ID: Abx per ID ( On levofloxacin, Zosyn )Monitor for signs of infections ( Fever , WBC) Sputum cx 08/30, 09/11: Pseudomonas Follow up on blood culture, check sputum cx Endo: SSI for glycemic Heme: Monitor CBC, GI prophylaxis with Protonix 40mg daily DVT prophylaxis with SCDs. Heparin on hold due to acute anemia Level 3 Problem Qualifiers (1) PNA (pneumonia): Qualified Codes: J18.1 - Lobar pneumonia, unspecified organism Rachel Otero MD September 17, 2017 09:42
[2017-09-17] MEDS: FREE WATER G-TUBE SCH ×2 (09:45→21:00)
[2017-09-17] MEDS ORDERED: FUROSEMIDE 40 MG/4 ML VIAL IV PUSH ONE (09:45)
[2017-09-17] MEDS: PANTOPRAZOLE SODIUM 40 MG VIAL IV PUSH SCH (10:50)
--- NOTE | 2017-09-17 11:31 | HHI.GIFU ---
Subjective Remarks Pt was reintubated. No obvious bleeding. HH stable. (Joann Rubio) Objective Vitals I&O Vital Signs Date Time Temp Pulse Resp B/P (MAP) Pulse Ox O2 Delivery O2 Flow Rate FiO2 09/17/17 10:00 86 09/17/17 08:34 97 45 09/17/17 08:00 86 09/17/17 08:00 98.0 75 128/67 (87) 09/17/17 07:24 98.0 75 128/67 (87) 100 09/17/17 06:00 86 09/17/17 04:00 97.7 86 183/109 (133) 100 09/17/17 04:00 100 50 09/17/17 04:00 86 09/17/17 03:11 99 100 09/17/17 02:00 109 09/17/17 01:50 94 Non-Rebreather 15.00 100 09/17/17 00:00 98.1 106 180/109 (132) 89 09/17/17 00:00 106 09/16/17 22:00 94 09/16/17 20:00 91 09/16/17 20:00 97.5 91 24 166/90 (115) 93 09/16/17 19:44 93 Partial Rebreather 15.00 09/16/17 19:00 100 Partial Non-Rebreather 10.00 09/16/17 18:00 88 09/16/17 17:45 100 100 09/16/17 16:00 98.7 90 33 163/91 (115) 92 09/16/17 16:00 90 09/16/17 14:00 90 09/16/17 12:00 88 09/16/17 12:00 98.9 88 29 173/97 (122) 91 I/O 09/16/17 09/16/17 09/16/17 09/17/17 09/17/17 09/17/17 07:00 15:00 23:00 07:00 15:00 23:00 Intake Total 200 ml 472 ml 720 ml 576 ml 100 ml Output Total 850 ml 900 ml 780 ml Balance -650 ml 472 ml -180 ml -204 ml 100 ml Intake IV Total 200 ml 472 ml 300 ml 100 ml 100 ml Tube Feeding 420 ml 476 ml Output Urine Total 850 ml 900 ml 650 ml Gastric Drainage Total 130 ml # Bowel Movements 0 0 Laboratory Laboratory Tests Test 09/16/17 16:41 09/16/17 20:50 09/17/17 03:51 09/17/17 05:30 Blood Gas Puncture Site RT RADIAL RT RADIAL Blood Gas Patient Temperature 98.6 98.6 Blood Gas HCO3 23 24 Blood Gas Base Excess 0.3 -0.1 Blood Gas Oxygen Saturation 92 97 Arterial Blood pH 7.49 7.38 Arterial Blood Partial Pressure CO2 31 42 Arterial Blood Partial Pressure O2 78 319 Arterial Blood Oxygen Content 14.3 15.8 Arterial Blood Carboxyhemoglobin 2.1 1.3 Arterial Blood Methemoglobin 1.5 1.4 Blood Gas Hemoglobin 11.0 11.0 Oxygen Delivery Device SIMPLE MASK VENTILATOR Blood Gas Liter Flow 10 Potassium Level 4.7 4.1 Blood Gas Ventilator Setting PRVC/AC Blood Gas Inspired Oxygen 100 White Blood Count 14.6 Red Blood Count 3.60 Hemoglobin 11.0 Hematocrit 33.1 Mean Corpuscular Volume 91.7 Mean Corpuscular Hemoglobin 30.6 Mean Corpuscular Hemoglobin Concent 33.4 Red Cell Distribution Width 19.7 Platelet Count 189 Mean Platelet Volume 8.2 Neutrophils (%) (Auto) 96.5 Lymphocytes (%) (Auto) 0.6 Monocytes (%) (Auto) 2.5 Eosinophils (%) (Auto) 0.0 Basophils (%) (Auto) 0.4 Neutrophils # (Auto) 14.1 Lymphocytes # (Auto) 0.1 Monocytes # (Auto) 0.4 Eosinophils # (Auto) 0.0 Basophils # (Auto) 0.1 CBC Comment DIFF FINAL Differential Comment Blood Urea Nitrogen 39 Creatinine 0.99 Random Glucose 159 Total Protein 6.7 Albumin 3.2 Calcium Level 9.3 Alkaline Phosphatase 84 Aspartate Amino Transf (AST/SGOT) 16 Alanine Aminotransferase (ALT/SGPT) 20 Total Bilirubin 0.9 Sodium Level 148 Chloride Level 112 Carbon Dioxide Level 25.2 Anion Gap 11 Estimat Glomerular Filtration Rate 77 Date/Time Source Procedure Growth Status 09/17/17 05:35 Blood Peripheral Aerobic Blood Culture Pending Received 09/17/17 05:35 Blood Peripheral Anaerobic Blood Culture Pending Received 09/11/17 18:30 Stool Stool Stool Occult Blood (ANDREW) - Final HEMOCCULT POSITIVE Complete 09/17/17 05:45 Sputum Endotracheal Gram Stain Pending Received 09/17/17 05:45 Sputum Endotracheal Sputum Culture Pending Received 08/29/17 19:10 Urine Catheterized Urine Streptococcus pneumoniae Antigen (M - Final PRESUMPTIVE NEGATIVE FOR STREPTOCOCCU... Complete Imaging Last Impressions Chest X-Ray 09/17/17 0000 Signed Impressions: Service Date/Time: September 03:03 - CONCLUSION: Worsening bilateral pulmonary infiltrates with small left effusion. Jessee Gilliam Jr., MD Abdomen X-Ray 09/15/17 0000 Signed Impressions: Service Date/Time: Friday, September 15, 2017 08:57 - CONCLUSION: Nonobstructive bowel gas pattern. Eloy Georges MD CT Angiography 08/29/17 1849 Signed Impressions: Service Date/Time: Tuesday, August 29, 2017 19:36 - CONCLUSION: 1. Multilobar consolidation. 2. No evidence for pulmonary embolism. 3. Extensive coronary calcifications Pk Bae MD Physical Exam HEENT: normocephalic; atraumatic; no jaundice. intubated CHEST: CTA CARDIAC: RRR ABDOMEN: Soft, nondistended, nontender; no hepatosplenomegaly; bowel sounds are present in all four quadrants. NGT EXTREMITIES: No clubbing, cyanosis, or edema. SKIN: Normal; no rash; no jaundice. 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 HH periodically drifts down. has had blood transfusion 08/30 and 09/11. currently hgb is 10.7 - heme pos stool - no visible bleeding. never had EGD or colonoscopy. not stable for endoscopy at this time, recently extubated and exhibiting labored breathing, SOB to conversation - lung ca, respiratory failure, PNA - per CCM. palliative care following 09/17/17 HH stable no obvious bleeding. reintubated. reportedly pt's HCS is reluctant to make decisions. palliative care following. he will likely need trach now and ?peg but it is unclear if HCS will opt for aggressive care or palliative. PLAN - await palliative f/u - monitor labs - transfuse if needed - notify GI of active bleeding - continue TF pt seen by myself and Dr Grace and this note is on her behalf (Joann Rubio) Joann Rubio September 17, 2017 11:31 Sil Grace MD September 17, 2017 13:57
[2017-09-17] MEDS: LEVOFLOXACIN 250 MG PREMIX INJ 50 ML IV SCH (13:09)
--- NOTE | 2017-09-17 14:57 | HHI.IDPN ---
Note Infectious Disease Note Patient did not remain extubated along. Had to be reintubated last evening. Sedated on the ventilator. Afebrile. Presented to the emergency department on 08/29 with respiratory symptoms. Intubated in the ED. PAST MEDICAL HISTORY: Left lung cancer, being treated with chemotherapy and radiation, coronary artery disease, peripheral arterial disease, COPD, hypertension, anxiety, depression, bilateral cataract surgery, recent pneumonia due to Pseudomonas in 04/2017 and 07/2017, history of iliac artery bypass surgery. ALLERGIES: NO KNOWN DRUG ALLERGIES. Antibiotics: Piperacillin/tazobactam. Levaquin. Objective: Vital Signs Date Time Temp Pulse Resp B/P (MAP) Pulse Ox O2 Delivery O2 Flow Rate FiO2 09/17/17 14:00 86 09/17/17 12:07 100 45 09/17/17 12:00 86 09/17/17 12:00 98.0 75 117/67 (84) 09/17/17 10:00 86 09/17/17 08:34 97 45 09/17/17 08:00 86 09/17/17 08:00 98.0 75 128/67 (87) 09/17/17 07:24 98.0 75 128/67 (87) 100 09/17/17 06:00 86 09/17/17 04:00 97.7 86 183/109 (133) 100 09/17/17 04:00 100 50 09/17/17 04:00 86 09/17/17 03:11 99 100 09/17/17 02:00 109 09/17/17 01:50 94 Non-Rebreather 15.00 100 09/17/17 00:00 98.1 106 180/109 (132) 89 09/17/17 00:00 106 09/16/17 22:00 94 09/16/17 20:00 91 09/16/17 20:00 97.5 91 24 166/90 (115) 93 09/16/17 19:44 93 Partial Rebreather 15.00 09/16/17 19:00 100 Partial Non-Rebreather 10.00 09/16/17 18:00 88 09/16/17 17:45 100 100 09/16/17 16:00 98.7 90 33 163/91 (115) 92 09/16/17 16:00 90 Laboratory Tests Test 09/16/17 06:45 09/17/17 05:30 White Blood Count 17.2 TH/MM3 14.6 TH/MM3 Red Blood Count 3.55 MIL/MM3 3.60 MIL/MM3 Hemoglobin 10.7 GM/DL 11.0 GM/DL Hematocrit 32.4 % 33.1 % Mean Corpuscular Volume 91.2 FL 91.7 FL Mean Corpuscular Hemoglobin 30.2 PG 30.6 PG Mean Corpuscular Hemoglobin Concent 33.2 % 33.4 % Red Cell Distribution Width 18.9 % 19.7 % Platelet Count 185 TH/MM3 189 TH/MM3 Mean Platelet Volume 8.5 FL 8.2 FL Neutrophils (%) (Auto) 92.9 % 96.5 % Lymphocytes (%) (Auto) 0.8 % 0.6 % Monocytes (%) (Auto) 5.9 % 2.5 % Eosinophils (%) (Auto) 0.0 % 0.0 % Basophils (%) (Auto) 0.4 % 0.4 % Neutrophils # (Auto) 16.0 TH/MM3 14.1 TH/MM3 Lymphocytes # (Auto) 0.1 TH/MM3 0.1 TH/MM3 Monocytes # (Auto) 1.0 TH/MM3 0.4 TH/MM3 Eosinophils # (Auto) 0.0 TH/MM3 0.0 TH/MM3 Basophils # (Auto) 0.1 TH/MM3 0.1 TH/MM3 CBC Comment DIFF FINAL DIFF FINAL Differential Comment Laboratory Tests Test 09/15/17 17:58 09/16/17 06:45 09/16/17 20:50 09/17/17 05:30 Potassium Level 4.1 MEQ/L 3.2 MEQ/L 4.7 MEQ/L 4.1 MEQ/L Blood Urea Nitrogen 32 MG/DL 39 MG/DL Creatinine 0.81 MG/DL 0.99 MG/DL Random Glucose 84 MG/DL 159 MG/DL Total Protein 7.0 GM/DL 6.7 GM/DL Albumin 3.0 GM/DL 3.2 GM/DL Calcium Level 9.2 MG/DL 9.3 MG/DL Phosphorus Level 2.7 MG/DL Magnesium Level 2.4 MG/DL Alkaline Phosphatase 79 U/L 84 U/L Aspartate Amino Transf (AST/SGOT) 17 U/L 16 U/L Alanine Aminotransferase (ALT/SGPT) 20 U/L 20 U/L Total Bilirubin 1.2 MG/DL 0.9 MG/DL Sodium Level 144 MEQ/L 148 MEQ/L Chloride Level 109 MEQ/L 112 MEQ/L Carbon Dioxide Level 23.9 MEQ/L 25.2 MEQ/L Anion Gap 11 MEQ/L 11 MEQ/L Estimat Glomerular Filtration Rate 97 ML/MIN 77 ML/MIN Microbiology Date/Time Source Procedure Growth Status 09/11/17 18:30 Stool Stool Stool Occult Blood (ANDREW) - Final HEMOCCULT POSITIVE Complete 09/11/17 17:30 Sputum Endotracheal Gram Stain - Final Resulted 09/11/17 17:30 Sputum Culture - Preliminary Pseudomonas Species Resulted IMAGING: Chest X-Ray 09/17/17 0000 Signed Impressions: Service Date/Time: September 03:03 - CONCLUSION: Worsening bilateral pulmonary infiltrates with small left effusion. Jessee Gilliam Jr., MD Chest X-Ray 09/14/17 0600 Signed Impressions: Service Date/Time: Thursday, September 14, 2017 05:14 - CONCLUSION: 1. Left basilar airspace disease with small to moderate left effusion. Marked improvement in right basilar airspace disease since September 12. David Jay MD Chest X-Ray 09/02/17 0000 Signed Impressions: Service Date/Time: Saturday, September 02, 2017 06:32 - CONCLUSION: Bilateral airspace disease with interval worsening in the left base. Possible developing left-sided effusion. Jaret Crouch MD Abdomen X-Ray 08/31/17 0000 Signed Impressions: Service Date/Time: Thursday, August 31, 2017 20:34 - CONCLUSION: 1. Nasogastric tube tip in distal stomach. David Jay MD CT Angiography 08/29/17 1849 Signed Impressions: Service Date/Time: Tuesday, August 29, 2017 19:36 - CONCLUSION: 1. Multilobar consolidation. 2. No evidence for pulmonary embolism. 3. Extensive coronary calcifications Pk Bae MD PHYSICAL EXAMINATION: GENERAL: No acute distress. HEENT: Pupils reactive to light. No icterus. Moist oral mucosa. NECK: No swelling. No adenopathy. LUNGS: Rhonchi at the bases. HEART: Regular rate and rhythm. Slight systolic murmur at the left sternal border. ABDOMEN: Bowel sounds present, soft. EXTREMITIES: Ecchymosis at the upper extremities. No edema No clubbing or cyanosis. SKIN: No diffuse rash. NEUROLOGIC: Unable to assess. Patient intubated. PSYCHIATRIC: Unable to assess. IMPRESSION: 1. Bilateral pneumonia due to Pseudomonas. Last sputum culture from 09/12 has light growth of Pseudomonas. Chest x-ray is worse. 2. Acute respiratory failure. Reintubated. Ventilator dependent. 3. History of lung cancer. RECOMMENDATIONS: 1. Continue Piperacillin/tazobactam plan on giving a 21 day course until 09/20. 2. Continue the Levaquin plan on giving 21 day course until 09/20. 3. Monitor repeat sputum culture. 4. Continue to monitor clinical status. Herve Zarate MD September 17, 2017 14:57
[2017-09-18] VITALS (33 sets, daily range): BP systolic 135–193; BP diastolic 75–109; PULSE 60–80; RESP 19–20; TEMP 97.5–98.6; O2SAT 92–100
[2017-09-18] MEDS: RESP: ALBUTEROL 2.5 MG/IPRATROPIUM 0.5 MG NEB (SCH) NEB ×7 (00:05→23:49)
[2017-09-18] MEDS: DILTIAZEM HCL 60 MG TAB PO SCH ×5 (01:01→23:34)
[2017-09-18] MEDS: methylPREDNISolone SOD SUCC 40 MG/1 ML VIAL IV PUSH SCH ×4 (01:01→20:10)
[2017-09-18] MEDS: PROPOFOL 1000 MG/100 ML INJ 100 ML IV PRN ×3 (02:05→22:39)
[2017-09-18] MEDS: CHLORHEXIDINE GLUCONATE 2 % 1 PACK (2 CLOTHS) TOP SCH (04:00)
[2017-09-18] MEDS: hydrALAZINE HCL 25 MG TAB PO SCH ×3 (04:01→21:22)
[2017-09-18] MEDS: ARTIFICIAL TEARS OPTH SOLN 15 ML BTL EACH EYE SCH ×3 (04:01→20:11)
[2017-09-18] MEDS: ISOSORBIDE DINITRATE 10 MG TAB PO SCH ×3 (04:01→21:22)
[2017-09-18] MEDS: PIPERACIL-TAZO 4.5 GM PREMIX 100 ML IV SCH ×4 (04:01→22:38)
[2017-09-18] MEDS: INSULIN NovoLIN REGULAR SUPPLEMENTAL SCALE SQ SCH ×5 (06:00→23:37)
[2017-09-18 06:03] LABS: AUTOMATED NEUTROPHIL # 8.6 TH/MM3 (1.8-7.7); BASOPHIL % 0.4 % (0.0-2.0); HEMOGLOBIN 9.4 GM/DL (13.0-17.0); LYMPH % 0.9 % (9.0-44.0); LYMPHOCYTE # 0.1 TH/MM3 (1.0-4.8); MEAN CELL VOLUME 92.4 FL (80.0-100.0); MEAN CORPUSCULAR HGB CONC 33.5 % (32.0-36.0); MEAN PLATELET VOLUME 8.5 FL (7.0-11.0); MONO % 2.8 % (0.0-8.0); MONOCYTE # 0.2 TH/MM3 (0-0.9); NEUT % 95.9 % (16.0-70.0); PLATELET COUNT 140 TH/MM3 (150-450); RED BLOOD COUNT 3.02 MIL/MM3 (4.50-5.90); RED CELL DISTRIBUTION WIDTH 19.8 % (11.6-17.2)
[2017-09-18 06:34] LABS: BICARBONATE 26.6 MEQ/L (21.0-32.0); CALCIUM 8.5 MG/DL (8.5-10.1); CREATININE 0.98 MG/DL (0.60-1.30)
[2017-09-18] MEDS: CHLORHEXIDINE 0.12% (ORAL KIT) 15 ML CUP MT SCH ×4 (08:00→20:18)
--- NOTE | 2017-09-18 08:17 | HHI.CCPN ---
Subjective Remarks/Hospital Course 08/29: This is a 61-year-old male with a history of lung cancer undergoing current chemotherapy and radiation who was recently admitted on 07/19 for aspiration pneumonia. During that admission he did have episodes of paroxysmal atrial fibrillation and had an echo from 04/2017 showing an EF of 50-55%. He represents today to the emergency department with acute shortness of breath since last night. Per the ER documentation, he denies any coughing, fever, chills, or other recent symptoms or changes other than the new dyspnea. In the emergency department he was found to be in A. fib with RVR. This initially converted to sinus rhythm 1 after diltiazem 20 mg IV bolus, but then very quickly went back into atrial for ablation with rapid ventricular response. 2 doses of adenosine were not able to convert it. The patient was loaded with amiodarone and infusion was started. After this, the patient become acutely hypoxemic requiring emergent intubation. Please refer to the emergency room physician documentation for additional details regarding the decompensation. When I came to evaluate patient, the patient was recently intubated, sedated. No additional information is available from the patient due to his clinical condition. Review of systems is unobtainable. Critical care medicine is consulted to evaluate manage his acute hypoxic respiratory failure along with his acute supraventricular tachycardia. 08/30: Patient remains intubated and sedated. FiO2 down to 0.5. Patient continues to be on amiodarone infusion and heparin drip. Sedation achieved with propofol and fentanyl. Patient remains hypothermic requiring Gracia hugger, urine output 350 mL's documented since admission. 08/31: No events over the night. Patient remains intubated and sedated. Hemoglobin more stable posttransfusion. Hypothermia resolved, T-max of 100.3. Urine output remains low, 635 mL's over the last 24 hours. Oxygenation is improved. No family present at bedside. Patient remains in sinus rhythm, on amiodarone infusion. No report of melena, hematochezia or coffee-ground aspirate from NG tube. Morning chest x-ray reviewed, worsening infiltrates over the right thorax, unchanged consolidation over the left. 09/01: Afebrile. Patient was extubated yesterday afternoon and emergently intubated 1030 last night secondary to hypoxemic respiratory failure. This x- ray pending this a.m.. The patient also was noted to have severe metabolic acidosis and sodium bicarbonate infusion was initiated. Patient noted to have Pseudomonas, and placed on Zosyn. Patient continues to have leukocytosis with worsening pneumonia ID has been consulted appreciate recommendations. Patient previously DNR palliative has been consulted up on hypoxemic respiratory failure patient was noted to request intubation at that time. Palliative care consult pending. Patient continues on amiodarone infusion now in sinus rhythm. Amiodarone infusion discontinued the patient continued on metoprolol and Cardizem home medications. Hemoglobin appears stable status post 2 units transfusion 48 hours ago. Will do serial H&H's aspirin reinitiated will hold Plavix for now, and continue to follow. Subcu heparin initiated. 09/02: Afebrile. Hemoglobin stable for the last 24 hours. Plan to restart tube feeds this a.m.. Metabolic acidosis resolved, patient's sodium bicarbonate discontinued. Patient requiring increasing FiO2 requirements during the night , now at 100% ABG pending. This am chest x-ray worsening. 09/03: Late entry note patient seen at 8:15 AM .afebrile. Chest x-ray continues to worsen. FiO2 requirement slightly decreased we will attempt CPAP trials today. 09/04: Afebrile. patient awake and following commands this a.m. Currently on CPAP trials. FiO2 weaned to 45% 09/05: Afebrile. Patient tolerating CPAP trials. She noted to have elevated blood glucose level secondary methylprednisolone. Chest x-ray now improving methylprednisolone taper initiated. Patient noted to still have episodes of hypertension Cardizem increased to 90 mg every 6 hours. 09/06: Patient currently in a flutter. Received adenosine 12 mg 1 which feels a flutter. Echocardiogram CPK and troponin ordered. TSH normal during this hospitalization. Potassium magnesium both normalized. Arousable and follows commands. Subjective 09/07: Patient is currently on PSV trial 20/8 ~35%. Patient oscillating on CODE STATUS. Tolerating tube feeds. Remains in normal sinus rhythm on amiodarone drip. 09/08: No events over the night. CPAP trial was attempted this morning patient went into A. fib with RVR after 15 minutes. Patient was switched back to full support, and converted to sinus rhythm. He continues to be on amiodarone infusion and heparin drip. He is lethargic but easily arousable able to follow some commands. FiO2 at 0.5 and PEEP at 8. T-max of 99. 09/09: No events over the night. T-max of 98.9. Patient remains intubated and sedated, on propofol and fentanyl. CPAP trial attempted this morning again and patient went into A. fib with RVR and hypoxia, therefore he was placed back on PRVC. No family present at bedside. Urine output of 2350 mL over the last 24 hours. He is +22 L since admission charting is correct. 09/10: No events over the night. This morning patient is in A. fib with RVR heart rate 150, hemodynamically stable. Patient had excellent response to diuresis, urine output greater than 4 L over the last 24 hours. T-max of 98.5. No family present at bedside. Morning chest x-ray reviewed. 09/11: Patient did well over the night. He remains in sinus rhythm on amiodarone infusion. Patient was started on Lasix drip yesterday with great urine output. Patient is negative approximately 2.5 L over the last 24 hours. Afebrile, with Tmax of 99.9. Oxygenation down to 40%. 09/12: No events over the night. Patient remains afebrile with a T-max of 99.4. Patient continues to be on Lasix drip with good urine output however he still on positive fluid balance over the last 24 hours. Lasix drip increased to 7.5 mg/h this morning. He continues to be on amiodarone infusion, and sedation with propofol and fentanyl. Patient is awake, weak, following some commands. Oxygenation not significantly improved, still requiring PEEP of 7 and 50% O2. Morning chest x-ray reviewed, ET tube is in good position, no significant change compared to 2 days ago. 09/13: No events over the night. Patient remains intubated and sedated. Afebrile over the night with a T-max of 98.9. -1.5 L over the last 24 hours. 09/14 Patient is intubated and sedated with Fentanyl drip. On Amio and Lasix drips. UOP: 4.1 L overnight. 09/15 Patient remains intubated and sedated. off Lasix drip. TF held for emesis/ high residuals. Patient was in Afib with RVR and restarted on Amio drip overnight. (Amio was held during day yesterday for bradycardia) 09/16 Patient was extubated yesterday on 10L simple mask. Awake. Afebrile. Remains on Amio drip. 09/17 Patient was reintubated during night sedated with Diprivan and fentanyl drips. Afebrile. 09/18 Patient remains intubated and sedated. TF held for high residuals. Objective Vital Signs Date Time Temp Pulse Resp B/P (MAP) Pulse Ox O2 Delivery O2 Flow Rate FiO2 09/18/17 07:28 100 45 09/18/17 06:00 71 09/18/17 04:00 98.6 152/81 (104) 09/17/17 19:00 Mechanical Ventilator 09/17/17 16:00 18 09/17/17 01:50 15.00 Intake and Output 09/18/17 09/18/17 09/19/17 08:00 16:00 00:00 Intake Total 700 ml Output Total 550 ml Balance 150 ml Result Diagram: 09/18/17 0515 09/18/17 0515 Other Results Laboratory Tests Test 09/18/17 05:15 White Blood Count 9.0 TH/MM3 Red Blood Count 3.02 MIL/MM3 Hemoglobin 9.4 GM/DL Hematocrit 28.0 % Mean Corpuscular Volume 92.4 FL Mean Corpuscular Hemoglobin 31.0 PG Mean Corpuscular Hemoglobin Concent 33.5 % Red Cell Distribution Width 19.8 % Platelet Count 140 TH/MM3 Mean Platelet Volume 8.5 FL Neutrophils (%) (Auto) 95.9 % Lymphocytes (%) (Auto) 0.9 % Monocytes (%) (Auto) 2.8 % Eosinophils (%) (Auto) 0.0 % Basophils (%) (Auto) 0.4 % Neutrophils # (Auto) 8.6 TH/MM3 Lymphocytes # (Auto) 0.1 TH/MM3 Monocytes # (Auto) 0.2 TH/MM3 Eosinophils # (Auto) 0.0 TH/MM3 Basophils # (Auto) 0.0 TH/MM3 CBC Comment DIFF FINAL Differential Comment Blood Urea Nitrogen 45 MG/DL Creatinine 0.98 MG/DL Random Glucose 140 MG/DL Calcium Level 8.5 MG/DL Sodium Level 148 MEQ/L Potassium Level 3.7 MEQ/L Chloride Level 111 MEQ/L Carbon Dioxide Level 26.6 MEQ/L Anion Gap 10 MEQ/L Estimat Glomerular Filtration Rate 77 ML/MIN Imaging Last Impressions Chest X-Ray 09/17/17 0000 Signed Impressions: Service Date/Time: September 03:03 - CONCLUSION: Worsening bilateral pulmonary infiltrates with small left effusion. Jessee Gilliam Jr., MD Abdomen X-Ray 09/15/17 0000 Signed Impressions: Service Date/Time: Friday, September 15, 2017 08:57 - CONCLUSION: Nonobstructive bowel gas pattern. Eloy Georges MD CT Angiography 08/29/17 1849 Signed Impressions: Service Date/Time: Tuesday, August 29, 2017 19:36 - CONCLUSION: 1. Multilobar consolidation. 2. No evidence for pulmonary embolism. 3. Extensive coronary calcifications Pk Bae MD Objective Remarks GENERAL: Patient is 62 yo intubated and sedated SKIN: Warm and dry. HEAD: Normocephalic. EYES: No scleral icterus. No injection or drainage. NECK: Supple, trachea midline. No JVD or lymphadenopathy. CARDIOVASCULAR: Regular rate and rhythm without murmurs, gallops, or rubs. RESPIRATORY: Breath sounds equal bilaterally. No accessory muscle use. GASTROINTESTINAL: Abdomen soft, non-tender, nondistended. MUSCULOSKELETAL: No cyanosis, or edema. Neuro: Sedated A/P Problem List: (1) OBED (acute kidney injury) ICD Code: N17.9 - Acute kidney failure, unspecified (2) Severe protein-calorie malnutrition ICD Code: E43 - Unspecified severe protein-calorie malnutrition Status: Chronic (3) Shortness of breath ICD Code: R06.02 - Shortness of breath Status: Acute (4) Tobacco abuse ICD Code: Z72.0 - Tobacco use Status: Chronic (5) Paroxysmal A-fib ICD Code: I48.0 - Paroxysmal atrial fibrillation Status: Chronic (6) Atrial fibrillation with RVR ICD Code: I48.91 - Unspecified atrial fibrillation Status: Resolved (7) PNA (pneumonia) ICD Code: J18.9 - Pneumonia, unspecified organism (8) COPD (chronic obstructive pulmonary disease) ICD Code: J44.9 - Chronic obstructive pulmonary disease, unspecified (9) Lung cancer ICD Code: C34.90 - Malignant neoplasm of unspecified part of unspecified bronchus or lung (10) Debility ICD Code: R53.81 - Other malaise Status: Chronic (11) Pain ICD Code: R52 - Pain, unspecified Status: Chronic (12) Lung consolidation ICD Code: J18.1 - Lobar pneumonia, unspecified organism Status: Acute (13) Acute respiratory failure with hypoxia and hypercarbia ICD Code: J96.01 - Acute respiratory failure with hypoxia; J96.02 - Acute respiratory failure with hypercapnia Assessment and Plan 1. VDRF- Extubated 09/15, reintubated 09/17 2. Pseudomonas pneumonia -patient remains afebrile 3. Acute COPD exacerbation -resolved 4. Lung cancer currently undergoing radiation therapy and chemotherapy prior to hospitalization 5. Atrial fibrillation with rapid ventricular response -multiple recurrences during the admission, currently in sinus rhythm 6. Elevated troponin - trending down 7. Acute blood loss anemia -reoccurred, this morning's hemoglobin at 6.3. No clear evidence of bleed, no melena no hematemesis no hematochezia 8. OBED -resolved Plan Neuro: On Diprivan, Fentanyl infusion for sedation. Daily sedation vacation Pulm: Continue with vent support keep sats >92% Bronchodilators, ICU vent bundle. On Solumederol 40mg IV Q6 Patient will likely need trach/PEG if healthcare surrogate cousin Dahiana Mayorga is agreeable. Awaiting her decision. CV: Monitor HR and BP keep MAP>65mmHg Cardizem 60mg Q6, Hydralazine 50mg Q8, Isordil 10mg Q8, Lopressor 50mg Q12 Continue statin Echo showed EF 40-45% : Monitor renal function, I/O's, electrolytes replacement per protocol Change Free water 250ml Q8 monitor sodium level. GI: Resume tube feeds via NGT( Jevity 1.with goal rate 50ml/hr) Add Reglan 5mg IV Q8 KUB abdomen 09/15 : Non obstructive bowel gas pattern GI is following will need EGD/colonoscopy when stable. ID: Abx per ID ( On levofloxacin, Zosyn )Monitor for signs of infections ( Fever , WBC) Sputum cx 08/30, 09/11: Pseudomonas Follow up on blood culture, sputum cx from 09/17 Endo: SSI for glycemic Heme: Monitor CBC, GI prophylaxis with Protonix 40mg daily DVT prophylaxis with SCDs. Resume Heparin Sq, monitor H/H Level 3 Problem Qualifiers (1) PNA (pneumonia): Qualified Codes: J18.1 - Lobar pneumonia, unspecified organism Rachel Otero MD September 18, 2017 08:17
[2017-09-18] MEDS: METOPROLOL TARTRATE 50 MG TAB PO SCH ×2 (08:21→20:11)
[2017-09-18] MEDS: DOCUSATE SODIUM 50 MG/SENNA 8.6 MG TAB PO SCH ×2 (08:21→20:11)
[2017-09-18] MEDS: PRAVASTATIN SOD 10 MG TAB PO SCH (08:21)
[2017-09-18] MEDS: PANTOPRAZOLE SODIUM 40 MG VIAL IV PUSH SCH (08:21)
[2017-09-18] MEDS: LANSOPRAZOLE SOLUTAB 30 MG TAB NG SCH (08:21)
[2017-09-18] MEDS: HEPARIN SODIUM - SQ 10,000 UNITS/ML VIAL SQ SCH ×2 (08:52→20:10)
[2017-09-18] MEDS: METOCLOPRAMIDE HCL 10 MG/2 ML VIAL IV PUSH SCH ×3 (08:52→21:21)
--- NOTE | 2017-09-18 10:47 | HHI.GIFU ---
Subjective Remarks Pt on sedation Opens his eyes to verbal stimuli (Ene Francisco) Objective Vitals I&O Vital Signs Date Time Temp Pulse Resp B/P (MAP) Pulse Ox O2 Delivery O2 Flow Rate FiO2 09/18/17 09:30 66 09/18/17 09:00 75 09/18/17 08:30 73 09/18/17 08:00 74 09/18/17 07:28 100 45 09/18/17 07:00 98 Mechanical Ventilator 15.00 45 09/18/17 06:00 71 09/18/17 04:40 100 45 09/18/17 04:00 63 09/18/17 04:00 98.6 63 152/81 (104) 100 09/18/17 02:00 65 09/18/17 00:05 100 40 09/18/17 00:00 97.8 60 135/75 (95) 100 09/18/17 00:00 60 09/17/17 22:00 67 09/17/17 20:10 100 45 09/17/17 20:00 66 09/17/17 20:00 98.4 66 132/75 (94) 100 09/17/17 19:00 100 Mechanical Ventilator 50 09/17/17 18:55 Mechanical Ventilator 50 09/17/17 18:00 86 09/17/17 16:06 100 Ventilator 45 09/17/17 16:06 99 45 09/17/17 16:00 98.1 58 18 108/62 (77) 98 09/17/17 16:00 86 09/17/17 14:00 86 09/17/17 12:07 100 45 09/17/17 12:00 86 09/17/17 12:00 98.0 75 117/67 (84) I/O 09/17/17 09/17/17 09/17/17 09/18/17 09/18/17 09/18/17 07:00 15:00 23:00 07:00 15:00 23:00 Intake Total 576 ml 250 ml 650 ml 600 ml 200 ml Output Total 780 ml 1130.0 ml 550 ml Balance -204 ml 250 ml -480.0 ml 50 ml 200 ml Intake IV Total 100 ml 250 ml 200 ml 200 ml Tube Feeding 476 ml 450 ml Other 200 ml 400 ml Output Urine Total 650 ml 1000 ml 550 ml Gastric Drainage Total 130 ml 0 ml Tube Feeding Residual Discard 130.0 ml # Bowel Movements 0 0 Laboratory Laboratory Tests Test 09/18/17 05:15 White Blood Count 9.0 Red Blood Count 3.02 Hemoglobin 9.4 Hematocrit 28.0 Mean Corpuscular Volume 92.4 Mean Corpuscular Hemoglobin 31.0 Mean Corpuscular Hemoglobin Concent 33.5 Red Cell Distribution Width 19.8 Platelet Count 140 Mean Platelet Volume 8.5 Neutrophils (%) (Auto) 95.9 Lymphocytes (%) (Auto) 0.9 Monocytes (%) (Auto) 2.8 Eosinophils (%) (Auto) 0.0 Basophils (%) (Auto) 0.4 Neutrophils # (Auto) 8.6 Lymphocytes # (Auto) 0.1 Monocytes # (Auto) 0.2 Eosinophils # (Auto) 0.0 Basophils # (Auto) 0.0 CBC Comment DIFF FINAL Differential Comment Blood Urea Nitrogen 45 Creatinine 0.98 Random Glucose 140 Calcium Level 8.5 Sodium Level 148 Potassium Level 3.7 Chloride Level 111 Carbon Dioxide Level 26.6 Anion Gap 10 Estimat Glomerular Filtration Rate 77 Date/Time Source Procedure Growth Status 09/17/17 05:35 Blood Peripheral Aerobic Blood Culture Pending Received 09/17/17 05:35 Blood Peripheral Anaerobic Blood Culture Pending Received 09/11/17 18:30 Stool Stool Stool Occult Blood (ANDREW) - Final HEMOCCULT POSITIVE Complete 09/17/17 12:00 Sputum Endotracheal Gram Stain - Final Resulted 09/17/17 12:00 Sputum Endotracheal Sputum Culture Pending Resulted 08/29/17 19:10 Urine Catheterized Urine Streptococcus pneumoniae Antigen (M - Final PRESUMPTIVE NEGATIVE FOR STREPTOCOCCU... Complete Imaging Last Impressions Chest X-Ray 09/17/17 0000 Signed Impressions: Service Date/Time: September 03:03 - CONCLUSION: Worsening bilateral pulmonary infiltrates with small left effusion. Jessee Gilliam Jr., MD Abdomen X-Ray 09/15/17 0000 Signed Impressions: Service Date/Time: Friday, September 15, 2017 08:57 - CONCLUSION: Nonobstructive bowel gas pattern. Eloy Georges MD CT Angiography 08/29/17 1849 Signed Impressions: Service Date/Time: Tuesday, August 29, 2017 19:36 - CONCLUSION: 1. Multilobar consolidation. 2. No evidence for pulmonary embolism. 3. Extensive coronary calcifications Pk Bae MD Physical Exam HEENT: Normocephalic; atraumatic CHEST: Respirations synchronized with vent CARDIAC: RRR ABDOMEN: Distended, soft, bowel sounds active. [facility] R nostril, clamped EXTREMITIES: No clubbing, cyanosis, or edema. SKIN: Normal; no rash; no jaundice. SANDER MACHINE: Open eyes to verbal stimuli (Ene Francisco) Assessment and Plan Plan ASSESSMENT - Anemia, normocytic with Hemoccult positive stools- no reports of obvious blood in stool Likely multifactorial given history, lung cancer and was undergoing treatment with chemotherapy. - A-fib RVR on admission - Respiratory failure- was reintubated 09/16 during the night - History of lung cancer, PNA- per CCM (09/18) H/H continues to trend down with no obvious GIB. No BM has been documented since 09/15. Pt was previously receiving TF through [facility], however this is now on hold due to high residuals. Abdomen does seem distended but soft. Awaiting palliative care recommendations regarding treatment plan. Would likely be able to do EGD/colonoscopy on Thursday if patient remains intubated, could also place PEG at that time if desired, will continue to follow and determine plan. Leukocytosis improving- pt on Zosyn and Levaquin, afebrile PLAN - KUB r/o ileus- reports of high TF residuals - Reglan - Monitor H/H - Transfuse as needed - Notify GI of active bleeding - Awaiting palliative care - Further recommendation based on clinical course and results of above Pt has been seen and examined by myself and Dr. Grace and this note is written on her behalf (Ene Francisco) Physician Comments seen, examined agree with above had 2 large bm's after Reglan, abdominal x ray noted , TF restarted (Sil Grace MD) Ene Francisco September 18, 2017 10:46 Sil Grace MD September 18, 2017 17:56
--- NOTE | 2017-09-18 11:18 | HHI.HCPN ---
Reason for visit a. To assist with evaluation and management of symptoms including: Shortness of breath, pain, debility b. To assist medical decision maker(s) with: better understanding of current medical conditions; weighing benefits/burdens of medical treatment options; making medical treatment decisions. Subjective/Interval History Patient seen today to follow-up on comfort on mechanical vent, as well as goals of treatment. He was medically extubated 09/15- reintubated 2am 09/17/17 critical care notes discussion with healthcare surrogate at that time and she elected to proceed with reintubation. He has again had high tube feed residuals, tube feed has been held. Of note 2 days ago he had some emesis in which tube feeding was held , abdominal imaging indicated nonspecific bowel gas pattern. Reglan has been added per he has not had a bowel movement since 09/15, recommend nursing utilize prns which are already in place, if ineffective may consider enema. [Discussed with nursing and as I am dictating she indicates patient has had 2 large loose BMs] remains on fentanyl, propofol for sedation on mechanical vent. This is patient's third reintubation this hospitalization.CXR from 09/17=Worsening bilateral pulmonary infiltrates with small left effusion. CBC unremarkable. Chemistry not significantly changed, unremarkable. Discussed with primary nurse. She updated healthcare surrogate cousin one day earlier today. Also later spoke with case management after it spoken to patient 's cousin. She indicates that someone from [employer] had been calling and inquiring about the patient and treatment options patient wishes etc. Advised that I was not aware of anyone else being involved in proxy decision- making, though Dahiana did ask me about somewhere from Medicare earlier today. Not sure what pertinent details this insurance person would need to assist with treatments though I am happy to speak with them as needed, alternatively if she is trying to help the surrogate with medical decision-making I would want any communications to be on conference call with designated healthcare surrogate Dahiana Patient examined in room no visitors present. He is sedated on mechanical vent. He is minimally interactive. He does open eyes occasionally to my exam. He does very weakly move feet to commands. Very weakly minimally moves hands to commands. No apparent distress. He does not nod or answer questions. . Family/friend interactions Following exam call to cousin Dahiana who is healthcare surrogate. Updated her on current condition, assessment, diagnostics, likely trajectory going forward. Explore that this is his third reintubation, and reiterated as we discussed earlier this week that his underlying pulmonary and medical comorbidities have remained unchanged and he will continue to experience complications secondary to a now prolonged hospitalization, debility and associated underlying medical conditions. Very likely he would require tracheostomy to continue ongoing aggressive interventions, if that was consistent with his goals. He would also likely require a PEG tube for longer term artificial nutrition administration. Alternatively review that if he did not desire ongoing aggressive interventions, and would instead want comfort measures such as hospice, he could be allowed to extubate with comfort interventions in place and allowing his diseases to follow a natural course, at some point he would from his conditions. Further explore that even with ongoing aggressive interventions he will likely continue to experience decline and eventual from his medical illnesses. She indicates some confusion about his goals, and that at some point she had been hearing maybe he was getting better, and at some point maybe wanted aggressive interventions, she tells me that no one updated her about his needing reintubation except for a 2 AM when he was reintubated. Gently explore that being called to ask about reintubation was an update about the need for reintubation. Also explore with her my conversation I had on Thursday with her after his medical extubation , regarding likely needing to make these decisions going forward even though he was off the vent at that time. She asks me if I personally have been able to speak with the patient about his wishes; advise that I was not present at the time of his reintubation though unlikely he was able to have insight and make appropriate decisions at that time, I again reviewed with her my conversation that I had with him on Thursday when he was medically extubated and that at that time I did not feel he had insight or full understanding and was not making informed decisions at that time. Advised that was the last time I was able to personally speak with this patient. She expresses that she wishes he was able to weigh in and indicate what he would want. She expresses understanding that she is "now at a point where she may have some make more decisions". She indicates she will talk further to the rest of his extended family regarding what his wishes may be going forward. She may wish to set up a family conference call later today if other family members have additional questions. She has palliative contact information and advised I am happy to assist with additional updates to the family to assist as needed with making decisions for Mr. Adams. She asks me if I have been speaking to someone from his insurance company, advised I have only been in communication with her (Dahiana) and staff here on [facility] regarding his care/ treatment plan. --- Later received a call from Trinity SCHULTZdepartment sales manager with [employer]. She has PIN number, indicates she has been in communication with Dahiana regarding patient's conditions, requests additional update to assist Dahiana with decision-making.. She has been following patient with [facility] for many years. Spoke to her at length review of hospital course, recurrent respiratory failure , likely prognosis going forward and treatment options at this time likely would include tracheostomy and PEG tube to continue aggressive interventions versus de-escalation and comfort measures with hospice services for comfort and end-of-life. She appears to have a good understanding of patient medical history recurrent hospitalizations and general medical decline. She indicates that it appears Dahiana might be confused at times by updates or not fully understand everything. She indicates she will be in further communication with Dahiana regarding her previous multiple conversations and interactions with the patient. She expresses that based on prior interactions with the patient she feels he would want his DNR upheld, and that he probably would not want to proceed with a tracheostomy or PEG tube. She will be in communication with cousin Dahiana. . Advance Directives Health Care Surrogate: Copy in medical record Advance Directive Specifics Date completed: [facility] -April 08, 2017 . Health Care Surrogate(s): [facility]- (Long time friend-15 yrs) Kay Rizvi [phone]- (July 2017) Alternate [facility]- Cousin- Dahiana Mayorga [phone] (will serve as [facility]) . Objective Vital Signs Date Time Temp Pulse Resp B/P (MAP) Pulse Ox O2 Delivery O2 Flow Rate FiO2 09/18/17 09:30 66 09/18/17 09:00 75 09/18/17 08:30 73 09/18/17 08:00 74 09/18/17 07:28 100 45 09/18/17 07:00 98 Mechanical Ventilator 15.00 45 09/18/17 06:00 71 09/18/17 04:40 100 45 09/18/17 04:00 63 09/18/17 04:00 98.6 63 152/81 (104) 100 09/18/17 02:00 65 09/18/17 00:05 100 40 09/18/17 00:00 97.8 60 135/75 (95) 100 09/18/17 00:00 60 09/17/17 22:00 67 09/17/17 20:10 100 45 09/17/17 20:00 66 09/17/17 20:00 98.4 66 132/75 (94) 100 09/17/17 19:00 100 Mechanical Ventilator 50 09/17/17 18:55 Mechanical Ventilator 50 09/17/17 18:00 86 09/17/17 16:06 100 Ventilator 45 09/17/17 16:06 99 45 09/17/17 16:00 98.1 58 18 108/62 (77) 98 09/17/17 16:00 86 09/17/17 14:00 86 09/17/17 12:07 100 45 09/17/17 12:00 86 09/17/17 12:00 98.0 75 117/67 (84) Intake & Output 09/18/17 09/18/17 07:00 19:00 Intake Total 600 ml 200 ml Output Total 680.0 ml Balance -80.0 ml 200 ml Intake IV Total 200 ml 200 ml Other 400 ml Output Urine Total 550 ml Gastric Drainage Total 0 ml Tube Feeding Residual Discard 130.0 ml # Bowel Movements 0 Physical Exam CONSTITUTIONAL/GENERAL: This is a chronically ill patient, and on mechanical vent TUBES/LINES/DRAINS: ET tube, NGT, PIV x2 LUE, SCDs, Dockery catheter SKIN: No jaundice, rashes, or lesions. Pale. Skin tears to bilateral upper extremities. EYES: Pupils 3 mm, reactive. No scleral icterus. No injection or drainage. Fundi not examined. ENT: + NG tube in place. Nose without bleeding or purulent drainage. Moist oral mucosa, otherwise limited oropharynx exam secondary to ET tube CARDIOVASCULAR: i regular rate and rhythm no murmur. no JVD. Full pulses palpable. RESPIRATORY/CHEST: Symmetric, unlabored respirations on mechanical vent. Scattered rhonchi. GASTROINTESTINAL: Abdomen soft, non-tender, nondistended. NGT present,clamped. Bowel sounds present. GENITOURINARY: Without palpable bladder distension. Dockery catheter in place. MUSCULOSKELETAL: Extremities without clubbing, cyanosis. Trace Edema to all four extremities. No mottling or clubbing. NEUROLOGICAL: sedated on mechanical vent. Some eye opening to exam intermittently tracks examiner. On fentanyl, propofol. Very weakly moves feet to command. Very minimally weakly moves hands to commands. Does not nod or attempt to communicate. PSYCHIATRIC: no apparent anxiety . Diagnostic Tests Laboratory Laboratory Tests Test 09/15/17 12:44 09/15/17 17:58 09/16/17 06:45 09/16/17 08:30 Blood Gas Puncture Site RT RADIAL RT RADIAL Blood Gas Patient Temperature 98.6 98.6 Blood Gas HCO3 27 mmol/L (22-26) 24 mmol/L (22-26) Blood Gas Base Excess 2.5 mmol/L (-2-2) 0.7 mmol/L (-2-2) Blood Gas Oxygen Saturation 96 % (90-100) 82 % (90-100) Arterial Blood pH 7.42 (7.380-7.420) 7.47 (7.380-7.420) Arterial Blood Partial Pressure CO2 41 mmHg (38-42) 34 mmHg (38-42) Arterial Blood Partial Pressure O2 148 mmHg (61-120) 50 mmHg (61-120) Arterial Blood Oxygen Content 15.7 Vol % (12.0-20.0) 12.8 Vol % (12.0-20.0) Arterial Blood Carboxyhemoglobin 1.4 % (0-4) 2.0 % (0-4) Arterial Blood Methemoglobin 1.4 % (0-2) 1.4 % (0-2) Blood Gas Hemoglobin 11.4 G/DL (12.0-16.0) 11.0 G/DL (12.0-16.0) Oxygen Delivery Device VENTILATOR NASAL CANNULA Blood Gas Ventilator Setting CPAP/PS10/EPAP7 Blood Gas Inspired Oxygen 40 % Potassium Level 4.1 MEQ/L (3.5-5.1) 3.2 MEQ/L (3.5-5.1) White Blood Count 17.2 TH/MM3 (4.0-11.0) Red Blood Count 3.55 MIL/MM3 (4.50-5.90) Hemoglobin 10.7 GM/DL (13.0-17.0) Hematocrit 32.4 % (39.0-51.0) Mean Corpuscular Volume 91.2 FL (80.0-100.0) Mean Corpuscular Hemoglobin 30.2 PG (27.0-34.0) Mean Corpuscular Hemoglobin Concent 33.2 % (32.0-36.0) Red Cell Distribution Width 18.9 % (11.6-17.2) Platelet Count 185 TH/MM3 (150-450) Mean Platelet Volume 8.5 FL (7.0-11.0) Neutrophils (%) (Auto) 92.9 % (16.0-70.0) Lymphocytes (%) (Auto) 0.8 % (9.0-44.0) Monocytes (%) (Auto) 5.9 % (0.0-8.0) Eosinophils (%) (Auto) 0.0 % (0.0-4.0) Basophils (%) (Auto) 0.4 % (0.0-2.0) Neutrophils # (Auto) 16.0 TH/MM3 (1.8-7.7) Lymphocytes # (Auto) 0.1 TH/MM3 (1.0-4.8) Monocytes # (Auto) 1.0 TH/MM3 (0-0.9) Eosinophils # (Auto) 0.0 TH/MM3 (0-0.4) Basophils # (Auto) 0.1 TH/MM3 (0-0.2) CBC Comment DIFF FINAL Differential Comment Blood Urea Nitrogen 32 MG/DL (7-18) Creatinine 0.81 MG/DL (0.60-1.30) Random Glucose 84 MG/DL (74-106) Total Protein 7.0 GM/DL (6.4-8.2) Albumin 3.0 GM/DL (3.4-5.0) Calcium Level 9.2 MG/DL (8.5-10.1) Phosphorus Level 2.7 MG/DL (2.5-4.9) Magnesium Level 2.4 MG/DL (1.5-2.5) Alkaline Phosphatase 79 U/L (45-117) Aspartate Amino Transf (AST/SGOT) 17 U/L (15-37) Alanine Aminotransferase (ALT/SGPT) 20 U/L (12-78) Total Bilirubin 1.2 MG/DL (0.2-1.0) Sodium Level 144 MEQ/L (136-145) Chloride Level 109 MEQ/L (98-107) Carbon Dioxide Level 23.9 MEQ/L (21.0-32.0) Anion Gap 11 MEQ/L (5-15) Estimat Glomerular Filtration Rate 97 ML/MIN (>89) Blood Gas Liter Flow 4 L/M Test 09/16/17 16:41 09/16/17 20:50 09/17/17 03:51 09/17/17 05:30 Blood Gas Puncture Site RT RADIAL RT RADIAL Blood Gas Patient Temperature 98.6 98.6 Blood Gas HCO3 23 mmol/L (22-26) 24 mmol/L (22-26) Blood Gas Base Excess 0.3 mmol/L (-2-2) -0.1 mmol/L (-2-2) Blood Gas Oxygen Saturation 92 % (90-100) 97 % (90-100) Arterial Blood pH 7.49 (7.380-7.420) 7.38 (7.380-7.420) Arterial Blood Partial Pressure CO2 31 mmHg (38-42) 42 mmHg (38-42) Arterial Blood Partial Pressure O2 78 mmHg (61-120) 319 mmHg (61-120) Arterial Blood Oxygen Content 14.3 Vol % (12.0-20.0) 15.8 Vol % (12.0-20.0) Arterial Blood Carboxyhemoglobin 2.1 % (0-4) 1.3 % (0-4) Arterial Blood Methemoglobin 1.5 % (0-2) 1.4 % (0-2) Blood Gas Hemoglobin 11.0 G/DL (12.0-16.0) 11.0 G/DL (12.0-16.0) Oxygen Delivery Device SIMPLE MASK VENTILATOR Blood Gas Liter Flow 10 L/M Potassium Level 4.7 MEQ/L (3.5-5.1) 4.1 MEQ/L (3.5-5.1) Blood Gas Ventilator Setting PRVC/AC Blood Gas Inspired Oxygen 100 % White Blood Count 14.6 TH/MM3 (4.0-11.0) Red Blood Count 3.60 MIL/MM3 (4.50-5.90) Hemoglobin 11.0 GM/DL (13.0-17.0) Hematocrit 33.1 % (39.0-51.0) Mean Corpuscular Volume 91.7 FL (80.0-100.0) Mean Corpuscular Hemoglobin 30.6 PG (27.0-34.0) Mean Corpuscular Hemoglobin Concent 33.4 % (32.0-36.0) Red Cell Distribution Width 19.7 % (11.6-17.2) Platelet Count 189 TH/MM3 (150-450) Mean Platelet Volume 8.2 FL (7.0-11.0) Neutrophils (%) (Auto) 96.5 % (16.0-70.0) Lymphocytes (%) (Auto) 0.6 % (9.0-44.0) Monocytes (%) (Auto) 2.5 % (0.0-8.0) Eosinophils (%) (Auto) 0.0 % (0.0-4.0) Basophils (%) (Auto) 0.4 % (0.0-2.0) Neutrophils # (Auto) 14.1 TH/MM3 (1.8-7.7) Lymphocytes # (Auto) 0.1 TH/MM3 (1.0-4.8) Monocytes # (Auto) 0.4 TH/MM3 (0-0.9) Eosinophils # (Auto) 0.0 TH/MM3 (0-0.4) Basophils # (Auto) 0.1 TH/MM3 (0-0.2) CBC Comment DIFF FINAL Differential Comment Blood Urea Nitrogen 39 MG/DL (7-18) Creatinine 0.99 MG/DL (0.60-1.30) Random Glucose 159 MG/DL (74-106) Total Protein 6.7 GM/DL (6.4-8.2) Albumin 3.2 GM/DL (3.4-5.0) Calcium Level 9.3 MG/DL (8.5-10.1) Alkaline Phosphatase 84 U/L (45-117) Aspartate Amino Transf (AST/SGOT) 16 U/L (15-37) Alanine Aminotransferase (ALT/SGPT) 20 U/L (12-78) Total Bilirubin 0.9 MG/DL (0.2-1.0) Sodium Level 148 MEQ/L (136-145) Chloride Level 112 MEQ/L (98-107) Carbon Dioxide Level 25.2 MEQ/L (21.0-32.0) Anion Gap 11 MEQ/L (5-15) Estimat Glomerular Filtration Rate 77 ML/MIN (>89) Test 09/18/17 05:15 White Blood Count 9.0 TH/MM3 (4.0-11.0) Red Blood Count 3.02 MIL/MM3 (4.50-5.90) Hemoglobin 9.4 GM/DL (13.0-17.0) Hematocrit 28.0 % (39.0-51.0) Mean Corpuscular Volume 92.4 FL (80.0-100.0) Mean Corpuscular Hemoglobin 31.0 PG (27.0-34.0) Mean Corpuscular Hemoglobin Concent 33.5 % (32.0-36.0) Red Cell Distribution Width 19.8 % (11.6-17.2) Platelet Count 140 TH/MM3 (150-450) Mean Platelet Volume 8.5 FL (7.0-11.0) Neutrophils (%) (Auto) 95.9 % (16.0-70.0) Lymphocytes (%) (Auto) 0.9 % (9.0-44.0) Monocytes (%) (Auto) 2.8 % (0.0-8.0) Eosinophils (%) (Auto) 0.0 % (0.0-4.0) Basophils (%) (Auto) 0.4 % (0.0-2.0) Neutrophils # (Auto) 8.6 TH/MM3 (1.8-7.7) Lymphocytes # (Auto) 0.1 TH/MM3 (1.0-4.8) Monocytes # (Auto) 0.2 TH/MM3 (0-0.9) Eosinophils # (Auto) 0.0 TH/MM3 (0-0.4) Basophils # (Auto) 0.0 TH/MM3 (0-0.2) CBC Comment DIFF FINAL Differential Comment Blood Urea Nitrogen 45 MG/DL (7-18) Creatinine 0.98 MG/DL (0.60-1.30) Random Glucose 140 MG/DL (74-106) Calcium Level 8.5 MG/DL (8.5-10.1) Sodium Level 148 MEQ/L (136-145) Potassium Level 3.7 MEQ/L (3.5-5.1) Chloride Level 111 MEQ/L (98-107) Carbon Dioxide Level 26.6 MEQ/L (21.0-32.0) Anion Gap 10 MEQ/L (5-15) Estimat Glomerular Filtration Rate 77 ML/MIN (>89) Result Diagram: 09/18/17 0515 09/18/17 0515 Microbiology Microbiology Date/Time Source Procedure Growth Status 09/17/17 05:35 Blood Peripheral Aerobic Blood Culture Pending Received 09/17/17 05:35 Blood Peripheral Anaerobic Blood Culture Pending Received 09/17/17 05:30 Blood Peripheral Aerobic Blood Culture Pending Received 09/17/17 05:30 Blood Peripheral Anaerobic Blood Culture Pending Received 09/17/17 12:00 Sputum Endotracheal Gram Stain - Final Resulted 09/17/17 12:00 Sputum Endotracheal Sputum Culture Pending Resulted 09/17/17 05:45 Sputum Endotracheal Gram Stain - Final Resulted 09/17/17 05:45 Sputum Endotracheal Sputum Culture Pending Resulted Imaging Last Impressions Chest X-Ray 09/17/17 0000 Signed Impressions: Service Date/Time: September 03:03 - CONCLUSION: Worsening bilateral pulmonary infiltrates with small left effusion. Jessee Gilliam Jr., MD Abdomen X-Ray 09/15/17 0000 Signed Impressions: Service Date/Time: Friday, September 15, 2017 08:57 - CONCLUSION: Nonobstructive bowel gas pattern. Eloy Georges MD CT Angiography 08/29/17 1849 Signed Impressions: Service Date/Time: Tuesday, August 29, 2017 19:36 - CONCLUSION: 1. Multilobar consolidation. 2. No evidence for pulmonary embolism. 3. Extensive coronary calcifications Pk Bae MD Procedures 08/29/17-intubation 08/31/17-self extubation 08/31/17-reintubated 09/15/17-medically extubated . Assessment and Plan Disease Oriented Problem List: (1) Acute respiratory failure with hypoxia and hypercarbia (2) Lung cancer (3) Atrial fibrillation with RVR (4) Lung consolidation (5) COPD (chronic obstructive pulmonary disease) Symptom Scale: (1) Shortness of breath 0-10 Scale: Unable to quantify Comment: Hx of lung cancer. CT angiography revealed multilobar consolidation and no evidence for pulmonary embolism, extensive coronary calcifications. . (2) Pain 0-10 Scale: Unable to quantify Comment: Risk for pain-from procedure (intubation), bedbound status. . (3) Debility 0-10 Scale: Unable to quantify Comment: Progressive . Pertinent Non-Medical Issues Psychosocial:Patient was born and raised in [place]. He left [place] at the age of 20. Patient moved to [place] in [place]. Patient has a 2 years college degree in [employer]. 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 Patient was and twice. He never had children. Spiritual:N congregational affiliation Legal:Patient has a [facility] form signed and completed a Community DNR Ethical issues impacting care:None identified at this time . Important Contacts Alternate [facility]- Cousin- Dahiana Mayorga [phone] Friend-Nemo [phone] [facility]- (Long time friend-15 yrs) Kay Rizvi [phone]- . Prognosis Mr Adams is a 61 years old male with a past medical history significant of lung cancer s/p radiation, COPD, hypertension, coronary artery disease and tobacco use. Patient presented to the ER via EMS on 08/29/17 complaining of shortness of breath that had started the night before, generalized malaise and weakness. Clinical course complicated with atrial fibrillation with RVR, and acute hypoxic and hypercapnic respiratory failure. Given ongoing comorbidities , patient remains at high risk for further complications, deterioration and decline. . Code Status: Full Code Plan Legal decision maker: Patient has been unable to participate in decision- making due to intubation, and even when medically extubated has not demonstrated insight or understanding to make informed decisions. Continue decision making using healthcare surrogate cousin Dahiana Mayorga. Goals: 09/16 post medical extubation: Remain Aggressive , attempted to explore patient wishes regarding reintubation and goals going forward he appears to have limited insight and will not make his wishes known either way. Attempted to explore this with his healthcare surrogate and cousin she is still hopeful that he will be able to make the decisions and so has chosen to wait to make any further decisions until he can give his opinion. 09/18/17: I have updated cousin and healthcare surrogate Dahiana on conditions likely trajectory and decisions regarding tracheostomy and PEG going forward. She indicates she will have ongoing discussions with the rest of his family is to assist her with decision making. She appears to be struggling to make a decision for the patient. CODE STATUS: Full code SYMPTOMS: * Shortness of breath: Patient has history of lung cancer, COPD and tobacco use. Patient presented with shortness of breath. Intubated 08/29, self extubated 08/31, reintubated 08/31 secondary to respiratory failure. Solu-Medrol and duo nebs prn. Had not been tolerating CPAP for longer than a couple hours-- medically extubated 09/15. On and off of facemask-->> reintubated 2 AM 09/17. Given this is the third reintubation, likely require longer term intubation, tracheostomy. Not clear at this time what patient's wishes are regarding reintubation versus comfort--he has not had insight to make these decisions for * Pain: Patient is at risk for pain, bedbound, multiple intubation/extubation since admission. Currently bedbound. Previously denying pain. Appears comfortable today. On fentanyl drip as well as to prevent for sedation. * Debility: Progressive: Hx of lung cancer s/p radiation. Multiple hospitalizations. Physical therapy following recommending physical therapy at rehab. Remains very weak, now reintubated which will further limit rehabilitation potential . Palliative care will continue to follow the patient during hospital course as condition evolves, to assist patient/decision-maker with understanding of their medical conditions, weighing benefits/burdens of treatment options, for clarification of goals of treatment. Additionally will assist with any symptoms of palliative concern Time Spent Total Floor Time (mins): 38 (Chart review, PE, discussion with healthcare surrogate, discussion with primary nurse, discussion with case management) Attestation To help prompt me to consider important information that might be impacting today's encounter and assessment, information from prior notes written by myself or my colleagues may have been "brought forward" into today's note. My signature on this note, however, is an attestation that I personally performed the exam, history, and/or decision-making noted today, and, unless otherwise indicated, the interactions with patient, family, and staff as well as the review of records all occurred today. I also attest that the listed assessment and stated plan reflect my best clinical judgment today based on the combination of historical information, prior notes, and today's exam/ interactions. When time spent is documented, it refers only to time spent today by the signer, or if indicated, combined time spent today by collaborating physician/nurse practitioner. Lynnette Hamilton September 18, 2017 11:18
--- NOTE | 2017-09-18 11:54 | RADRPT ---
EXAM DATE/TIME: 09/18/2017 11:07 [facility] COMPARISON: No previous studies available for comparison. INDICATIONS : Ileus MEDICAL HISTORY : Hypertension. Chronic obstructive pulmonary disease. Carcinoma, lung. SURGICAL HISTORY : None. ENCOUNTER: Initial ACUITY: 2 weeks PAIN SCORE: Non-responsive. LOCATION: Bilateral abdomen FINDINGS: NG tube coiled in the stomach. A paucity of bowel gas is seen throughout the abdomen. There is some a ir in nondilated large bowel in the right lower quadrant. Iliac artery calcifications are noted and a right iliac artery stent is seen. There is a bypass graft traversing the pelvis. Osseous structures are intact. There is opacification of the left hemithorax. CONCLUSION: Dense consolidative opacity at the left lung base. Nonspecific gas pattern with a paucity of bowel ga s seen. Eloy Georges MD on September 18, 2017 at 11:51 Board Certified Radiologist. This report was verified electronically.
[2017-09-18] MEDS: LEVOFLOXACIN 250 MG PREMIX INJ 50 ML IV SCH (12:27)
[2017-09-18] MEDS: fentaNYL DRIP 250 ML IV PRN (13:14)
[2017-09-18] MEDS: FREE WATER G-TUBE SCH ×2 (13:54→20:12)
--- NOTE | 2017-09-18 16:49 | HHI.IDPN ---
Note Infectious Disease Note Patient is on the vent. Awake. Sedated. Notes head to questions. He appears anxious when he is asked questions. Indicates that he wants to write for communication. However when given the pain and clipboard with paper is not able to write. Afebrile. Large dark red bloody clump of thick mucus suctioned from the ET tube. Presented to the emergency department on 08/29 with respiratory symptoms. Intubated in the ED. PAST MEDICAL HISTORY: Left lung cancer, being treated with chemotherapy and radiation, coronary artery disease, peripheral arterial disease, COPD, hypertension, anxiety, depression, bilateral cataract surgery, recent pneumonia due to Pseudomonas in 04/2017 and 07/2017, history of iliac artery bypass surgery. ALLERGIES: NO KNOWN DRUG ALLERGIES. Antibiotics: Piperacillin/tazobactam. Levaquin. Objective: Current Medications Medications (Trade) Dose Ordered Sig/[place] Route PRN Reason Start Time Stop Time Status Last Admin Dose Admin Sodium Chloride (NS Flush) 2 ml UNSCH PRN IVF FLUSH AFTER USING IV ACCESS 08/29/17 18:00 09/10/17 20:28 Potassium Chloride 100 ml @ 50 mls/hr Q2H PRN IV For Potassium 2.8 - 3.2 mEq/L 08/29/17 18:45 Potassium Chloride 100 ml @ 50 mls/hr Q2H PRN IV For Potassium 2.8 - 3.2 mEq/L 08/29/17 18:45 09/16/17 15:31 Potassium Bicarb/ Potassium Chloride (K-Lyte Cl Eff) 50 meq UNSCH PRN PO For Potassium 3.3 - 3.5 mEq/L 08/29/17 18:45 09/13/17 04:56 Potassium Chloride 100 ml @ 25 mls/hr UNSCH PRN IV For Potassium 3.3 - 3.5 mEq/L 08/29/17 18:45 Potassium Chloride 100 ml @ 50 mls/hr Q2H PRN IV For Potassium 3.3 - 3.5 mEq/L 08/29/17 18:45 09/11/17 10:17 Magnesium Sulfate 4 gm/Sodium Chloride 100 ml @ 50 mls/hr UNSCH PRN IV For Magnesium 0.9 - 1.1 mg/dL 08/29/17 18:45 Magnesium Oxide (Mag-Ox) 800 mg UNSCH PRN PO For Magnesium 1.2 - 1.6 mg/dL 08/29/17 18:45 Magnesium Sulfate 2 gm/Sodium Chloride 100 ml @ 50 mls/hr UNSCH PRN IV For Magnesium 1.2 - 1.6 mg/dL 08/29/17 18:45 Potassium Phosphate (K-Phos) 2,000 mg Q4H PRN PO For Phosphorus < 2.5 mg/dL 08/29/17 18:45 Sodium Phosphate 30 mmol/Sodium Chloride 250 ml @ 42 mls/hr UNSCH PRN IV For Phosphorus < 2.5 mg/dL 08/29/17 18:45 Potassium Phosphate (K-Phos) 2,000 mg UNSCH PRN PO/TUBE SEE LABEL COMMENTS 08/29/17 18:45 Potassium Phosphate 30 mmol/ Sodium Chloride 260 ml @ 42 mls/hr UNSCH PRN IV SEE LABEL COMMENTS 08/29/17 18:45 Dextrose (D50w (Vial) Inj) 25 ml UNSCH PRN IV PUSH HYPOGLYCEMIA-SEE COMMENTS 08/29/17 18:45 Insulin Human Regular (NovoLIN R SUPPLEMENTAL SCALE) 1 Q6HR SQ 08/30/17 00:00 09/18/17 12:00 Ondansetron HCl (Zofran Inj) 4 mg Q6H PRN IV PUSH NAUSEA OR VOMITING 08/29/17 18:45 09/15/17 00:22 Miscellaneous Information ([facility] [place] 1 Q361D XX 08/29/17 18:45 08/29/17 18:45 Chlorhexidine Gluconate (Chlorhexidine 2% Cloth) 3 pack Taper DAILY@04 TOP 08/30/17 04:00 08/26/18 03:59 09/18/17 04:00 Chlorhexidine Gluconate (Chlorhexidine 2% Cloth) 3 pack UNSCH PRN TOP HYGIENIC CARE 08/29/17 18:45 Senna/Docusate Sodium (Nata-Colace) 1 tab BID PO 08/29/17 21:00 09/18/17 08:21 Magnesium Hydroxide (Milk Of Magnesia Liq) 30 ml Q12H PRN PO Mild constipation 08/29/17 18:45 Sodium Chloride (NS Flush) 2 ml UNSCH PRN IVF FLUSH AFTER USING IV ACCESS 08/29/17 19:30 09/10/17 20:28 Chlorhexidine Gluconate (Peridex 0.12% Liq) 15 ml BID@08,20 MT 09/01/17 08:00 09/18/17 08:24 Pravastatin Sodium (Pravachol) 10 mg DAILY PO 09/01/17 09:00 09/18/17 08:21 Metoprolol Tartrate (Lopressor) 50 mg Q12HR PO 09/01/17 09:00 09/18/17 08:21 Aspirin (Aspirin Chew) 81 mg DAILY CHEW 09/01/17 09:00 Future Hold 09/11/17 08:03 Sennosides (Senokot) 17.2 mg Q12H PRN PO Moderate constipation 09/02/17 08:15 Bisacodyl (Dulcolax Supp) 10 mg DAILY PRN RECTAL SEVERE CONSITIPATION 09/02/17 08:15 Lactulose (Lactulose Liq) 30 ml DAILY PRN PO SEVERE CONSITIPATION 09/02/17 08:15 Levofloxacin/ Dextrose 50 ml @ 50 mls/hr Q24H IV 09/04/17 13:00 09/20/17 14:00 09/18/17 12:27 Labetalol HCl (Trandate Inj) 10 mg Q4H PRN IV PUSH SBP>160, DBP>90 09/03/17 22:00 09/16/17 18:24 Hydralazine HCl (Apresoline Inj) 20 mg Q4H PRN IV PUSH SBP>160, DBP>90 09/03/17 22:00 09/16/17 22:50 Albuterol Sulfate (Albuterol Neb) 2.5 mg Q2HR NEB PRN NEB dyspnea 09/06/17 12:30 09/13/17 20:24 Artificial Tears (Tears Naturale Opth Soln) 1 drop Q8HR EACH EYE 09/06/17 14:00 09/18/17 13:54 Lansoprazole (Prevacid Odt) 30 mg DAILY NG 09/07/17 09:00 09/18/17 08:21 Clopidogrel Bisulfate (Plavix) 75 mg DAILY PO 09/07/17 09:00 Future Hold 09/11/17 08:04 Labetalol HCl (Trandate Inj) 10 mg Q1HR PRN IV PUSH SBP>160, DBP>90, HR>65 09/07/17 16:00 09/16/17 20:57 Hydralazine HCl (Apresoline Inj) 10 mg Q1HR PRN IV PUSH SBP>160, DBP>90 09/07/17 16:00 09/16/17 03:13 Nitroglycerin (Nitroglycerin 2% Oint) 2 inch Q6HR PRN TOPICAL SBP>160, DBP>90 09/07/17 16:00 09/16/17 02:15 Isosorbide Dinitrate (Isordil) 10 mg Q8HR PO 09/07/17 22:00 09/18/17 12:28 Hydralazine HCl (Apresoline) 50 mg Q8HR PO 09/14/17 10:00 09/18/17 12:27 Piperacillin Sod/ Tazobactam Sod 100 ml @ 200 mls/hr Q6H IV 09/14/17 11:00 09/20/17 14:00 09/18/17 09:37 Albuterol/ Ipratropium (Duoneb Neb) 1 ampule Q2HR NEB PRN NEB SHORTNESS OF BREATH 09/15/17 14:00 09/16/17 18:30 Albuterol/ Ipratropium (Duoneb Neb) 1 ampule Q4HR NEB NEB 09/15/17 16:00 09/18/17 15:41 Methylprednisolone Sodium Succinate (SoluMEDROL INJ) 40 mg Q6H IV PUSH 09/16/17 13:00 09/18/17 13:00 Diltiazem HCl (Cardizem) 60 mg Q6HR PO 09/16/17 13:45 09/18/17 12:28 Propofol 100 ml @ 1.65 mls/hr TITRATE PRN IV SEDATION 09/17/17 02:45 09/18/17 13:14 Chlorhexidine Gluconate (Peridex 0.12% Liq) 15 ml BID@08,20 MT 09/17/17 08:00 09/17/17 20:00 Fentanyl Citrate 250 ml @ 5 mls/hr TITRATE PRN IV SEDATION 09/17/17 05:30 09/18/17 13:14 Pantoprazole Sodium (Protonix Inj) 40 mg DAILY IV PUSH 09/17/17 09:45 09/18/17 08:21 Water (Free Water) VOLUME OF WATER: 250 ML Q8HR G-TUBE 09/18/17 14:00 09/18/17 13:54 Metoclopramide HCl (Reglan Inj) 5 mg Q8HR IV PUSH 09/18/17 08:15 09/18/17 12:28 Heparin Sodium (Porcine) (Heparin Inj) 5,000 units Q12HR SQ 09/18/17 09:00 09/18/17 08:52 Vital Signs Date Time Temp Pulse Resp B/P (MAP) Pulse Ox O2 Delivery O2 Flow Rate FiO2 09/18/17 15:42 98 35 09/18/17 14:00 60 09/18/17 12:00 63 09/18/17 12:00 63 167/89 (115) 98 09/18/17 11:32 99 35 09/18/17 11:00 69 163/88 (113) 100 09/18/17 10:30 65 162/84 (110) 100 09/18/17 10:30 65 09/18/17 10:00 63 158/84 (108) 100 09/18/17 10:00 63 09/18/17 09:30 66 175/94 (121) 100 09/18/17 09:30 66 09/18/17 09:00 75 176/95 (122) 100 09/18/17 09:00 75 09/18/17 08:30 73 174/94 (120) 100 09/18/17 08:30 73 09/18/17 08:00 74 170/88 (115) 100 09/18/17 08:00 74 09/18/17 07:28 100 45 09/18/17 07:00 98 Mechanical Ventilator 15.00 45 09/18/17 06:00 71 09/18/17 04:40 100 45 09/18/17 04:00 63 09/18/17 04:00 98.6 63 152/81 (104) 100 09/18/17 02:00 65 09/18/17 00:05 100 40 09/18/17 00:00 97.8 60 135/75 (95) 100 09/18/17 00:00 60 09/17/17 22:00 67 09/17/17 20:10 100 45 09/17/17 20:00 66 09/17/17 20:00 98.4 66 132/75 (94) 100 09/17/17 19:00 100 Mechanical Ventilator 50 09/17/17 18:55 Mechanical Ventilator 50 09/17/17 18:00 86 Laboratory Tests Test 09/17/17 05:30 09/18/17 05:15 White Blood Count 14.6 TH/MM3 9.0 TH/MM3 Red Blood Count 3.60 MIL/MM3 3.02 MIL/MM3 Hemoglobin 11.0 GM/DL 9.4 GM/DL Hematocrit 33.1 % 28.0 % Mean Corpuscular Volume 91.7 FL 92.4 FL Mean Corpuscular Hemoglobin 30.6 PG 31.0 PG Mean Corpuscular Hemoglobin Concent 33.4 % 33.5 % Red Cell Distribution Width 19.7 % 19.8 % Platelet Count 189 TH/MM3 140 TH/MM3 Mean Platelet Volume 8.2 FL 8.5 FL Neutrophils (%) (Auto) 96.5 % 95.9 % Lymphocytes (%) (Auto) 0.6 % 0.9 % Monocytes (%) (Auto) 2.5 % 2.8 % Eosinophils (%) (Auto) 0.0 % 0.0 % Basophils (%) (Auto) 0.4 % 0.4 % Neutrophils # (Auto) 14.1 TH/MM3 8.6 TH/MM3 Lymphocytes # (Auto) 0.1 TH/MM3 0.1 TH/MM3 Monocytes # (Auto) 0.4 TH/MM3 0.2 TH/MM3 Eosinophils # (Auto) 0.0 TH/MM3 0.0 TH/MM3 Basophils # (Auto) 0.1 TH/MM3 0.0 TH/MM3 CBC Comment DIFF FINAL DIFF FINAL Differential Comment Laboratory Tests Test 09/16/17 20:50 09/17/17 05:30 09/18/17 05:15 Potassium Level 4.7 MEQ/L 4.1 MEQ/L 3.7 MEQ/L Blood Urea Nitrogen 39 MG/DL 45 MG/DL Creatinine 0.99 MG/DL 0.98 MG/DL Random Glucose 159 MG/DL 140 MG/DL Total Protein 6.7 GM/DL Albumin 3.2 GM/DL Calcium Level 9.3 MG/DL 8.5 MG/DL Alkaline Phosphatase 84 U/L Aspartate Amino Transf (AST/SGOT) 16 U/L Alanine Aminotransferase (ALT/SGPT) 20 U/L Total Bilirubin 0.9 MG/DL Sodium Level 148 MEQ/L 148 MEQ/L Chloride Level 112 MEQ/L 111 MEQ/L Carbon Dioxide Level 25.2 MEQ/L 26.6 MEQ/L Anion Gap 11 MEQ/L 10 MEQ/L Estimat Glomerular Filtration Rate 77 ML/MIN 77 ML/MIN Microbiology Date/Time Source Procedure Growth Status 09/17/17 05:35 Blood Peripheral Aerobic Blood Culture - Preliminary NO GROWTH IN 1 DAY Resulted 09/17/17 05:35 Blood Peripheral Anaerobic Blood Culture - Preliminary NO GROWTH IN 1 DAY Resulted 09/17/17 05:30 Blood Peripheral Aerobic Blood Culture - Preliminary NO GROWTH IN 1 DAY Resulted 09/17/17 05:30 Blood Peripheral Anaerobic Blood Culture - Preliminary NO GROWTH IN 1 DAY Resulted 09/17/17 12:00 Sputum Endotracheal Gram Stain - Final Resulted 09/17/17 12:00 Sputum Endotracheal Sputum Culture - Preliminary RARE GROWTH NORMAL RESPIRATORY ELVIS ... Resulted 09/17/17 05:45 Sputum Endotracheal Gram Stain - Final Resulted 09/17/17 05:45 Sputum Endotracheal Sputum Culture - Preliminary HEAVY GROWTH NORMAL RESPIRATORY ELVIS... Resulted Microbiology Date/Time Source Procedure Growth Status 09/11/17 18:30 Stool Stool Stool Occult Blood (ANDREW) - Final HEMOCCULT POSITIVE Complete 09/11/17 17:30 Sputum Endotracheal Gram Stain - Final Resulted 09/11/17 17:30 Sputum Culture - Preliminary Pseudomonas Species Resulted IMAGING: Abdomen X-Ray 09/18/17 0000 Signed Impressions: Service Date/Time: Monday, September 18, 2017 11:07 - CONCLUSION: Dense consolidative opacity at the left lung base. Nonspecific gas pattern with a paucity of bowel gas seen. Eloy Georges MD Chest X-Ray 09/17/17 0000 Signed Impressions: Service Date/Time: September 03:03 - CONCLUSION: Worsening bilateral pulmonary infiltrates with small left effusion. Jessee Gilliam Jr., MD Chest X-Ray 09/17/17 0000 Signed Impressions: Service Date/Time: September 03:03 - CONCLUSION: Worsening bilateral pulmonary infiltrates with small left effusion. Jessee Gilliam Jr., MD Chest X-Ray 09/14/17 0600 Signed Impressions: Service Date/Time: Thursday, September 14, 2017 05:14 - CONCLUSION: 1. Left basilar airspace disease with small to moderate left effusion. Marked improvement in right basilar airspace disease since September 12. David Jay MD Chest X-Ray 5/2/18 0000 Signed Impressions: Service Date/Time: Saturday, September 02, 2017 06:32 - CONCLUSION: Bilateral airspace disease with interval worsening in the left base. Possible developing left-sided effusion. Jaret Crouch MD Abdomen X-Ray 08/31/17 0000 Signed Impressions: Service Date/Time: Thursday, August 31, 2017 20:34 - CONCLUSION: 1. Nasogastric tube tip in distal stomach. David Jay MD CT Angiography 08/29/17 1849 Signed Impressions: Service Date/Time: Tuesday, August 29, 2017 19:36 - CONCLUSION: 1. Multilobar consolidation. 2. No evidence for pulmonary embolism. 3. Extensive coronary calcifications Pk Bae MD PHYSICAL EXAMINATION: GENERAL: No acute distress. HEENT: Pupils reactive to light. No icterus. Moist oral mucosa. NECK: No swelling. No adenopathy. LUNGS: Bilateral coarse rhonchi. HEART: Regular rate and rhythm. Slight systolic murmur at the left sternal border. ABDOMEN: Bowel sounds present, soft. Nontender. EXTREMITIES: Ecchymosis at the upper extremities. No edema No clubbing or cyanosis. SKIN: No diffuse rash. NEUROLOGIC: Unable to assess. Patient intubated. PSYCHIATRIC: Unable to assess. IMPRESSION: 1. Bilateral pneumonia due to Pseudomonas. Sputum has normal elvis. Chest x-ray is worse. Questionable mucous plug. Probable aspiration 2. Acute respiratory failure. Reintubated. Ventilator dependent. 3. History of lung cancer. RECOMMENDATIONS: 1. Continue Piperacillin/tazobactam planned on giving a 21 day course until However because he has deteriorated from respiratory standpoint and has lung infiltrate We will continue the penicillin/tazobactam 2. Continue the Levaquin. 3. Follow chest x-ray. 4. Continue to monitor clinical status. Patient remains full code and his power of state attorney has not yet made decisions regarding Extent of care. Herve Zarate MD September 18, 2017 16:49
[2017-09-19] VITALS (32 sets, daily range): BP systolic 143–182; BP diastolic 62–92; PULSE 56–74; RESP 18–25; TEMP 97.6–97.9; O2SAT 94–100
[2017-09-19] MEDS: methylPREDNISolone SOD SUCC 40 MG/1 ML VIAL IV PUSH SCH ×4 (00:45→20:22)
[2017-09-19] MEDS: fentaNYL DRIP 250 ML IV PRN ×2 (01:49→12:54)
[2017-09-19] MEDS: CHLORHEXIDINE GLUCONATE 2 % 1 PACK (2 CLOTHS) TOP SCH (04:00)
[2017-09-19] MEDS: RESP: ALBUTEROL 2.5 MG/IPRATROPIUM 0.5 MG NEB (SCH) NEB ×4 (04:10→14:47)
[2017-09-19] MEDS: PIPERACIL-TAZO 4.5 GM PREMIX 100 ML IV SCH ×4 (04:22→22:59)
--- NOTE | 2017-09-19 04:58 | RADRPT ---
EXAM DATE/TIME: 09/19/2017 03:34 [facility] COMPARISON: CHEST SINGLE AP, September 17, 2017, 3:03. INDICATIONS : Shortness of breath, possible pulmonary disease. MEDICAL HISTORY : Hypertension. Chronic obstructive pulmonary disease. Carcinoma, lung. SURGICAL HISTORY : None. ENCOUNTER: Subsequent ACUITY: 2 weeks PAIN SCORE: Non-responsive. LOCATION: Bilateral chest FINDINGS: A single view of the chest demonstrates a left perihilar airspace disease relatively stable. Improved basilar airspace disease, probably improved edema. Small left effusion remains but improved. Endotra cheal tube and nasogastric tube in good position. CONCLUSION: 1. Improved edema pattern with persistent perihilar consolidation on the left. Improved left effusion . David Jay MD on September 19, 2017 at 4:56 Board Certified Radiologist. This report was verified electronically.
[2017-09-19 05:43] LABS: AUTOMATED NEUTROPHIL # 11.2 TH/MM3 (1.8-7.7); BASOPHIL % 0.4 % (0.0-2.0); EOSINOPHIL % 0.1 % (0.0-4.0); HEMATOCRIT 31.1 % (39.0-51.0); HEMOGLOBIN 10.2 GM/DL (13.0-17.0); LYMPH % 0.8 % (9.0-44.0); LYMPHOCYTE # 0.1 TH/MM3 (1.0-4.8); MEAN CELL VOLUME 92.8 FL (80.0-100.0); MEAN CORPUSCULAR HEMOGLOBIN 30.5 PG (27.0-34.0); MEAN CORPUSCULAR HGB CONC 32.9 % (32.0-36.0); MEAN PLATELET VOLUME 8.6 FL (7.0-11.0); MONO % 1.5 % (0.0-8.0); MONOCYTE # 0.2 TH/MM3 (0-0.9); NEUT % 97.2 % (16.0-70.0); PLATELET COUNT 155 TH/MM3 (150-450); RED BLOOD COUNT 3.35 MIL/MM3 (4.50-5.90); RED CELL DISTRIBUTION WIDTH 20.1 % (11.6-17.2); WHITE BLOOD COUNT 11.5 TH/MM3 (4.0-11.0)
[2017-09-19] MEDS: METOCLOPRAMIDE HCL 10 MG/2 ML VIAL IV PUSH SCH ×3 (05:52→20:22)
[2017-09-19] MEDS: hydrALAZINE HCL 25 MG TAB PO SCH ×3 (05:52→20:22)
[2017-09-19] MEDS: ARTIFICIAL TEARS OPTH SOLN 15 ML BTL EACH EYE SCH ×3 (05:52→20:23)
[2017-09-19] MEDS: FREE WATER G-TUBE SCH ×3 (05:52→20:23)
[2017-09-19] MEDS: ISOSORBIDE DINITRATE 10 MG TAB PO SCH ×3 (05:52→20:22)
[2017-09-19 05:55] LABS: BICARBONATE 27.4 MEQ/L (21.0-32.0); CALCIUM 8.7 MG/DL (8.5-10.1); CREATININE 0.99 MG/DL (0.60-1.30); MAGNESIUM 2.4 MG/DL (1.5-2.5); PHOSPHORUS 3.8 MG/DL (2.5-4.9)
[2017-09-19] MEDS: DILTIAZEM HCL 60 MG TAB PO SCH ×4 (05:57→23:00)
[2017-09-19] MEDS: INSULIN NovoLIN REGULAR SUPPLEMENTAL SCALE SQ SCH ×4 (05:57→23:55)
[2017-09-19] MEDS: CHLORHEXIDINE 0.12% (ORAL KIT) 15 ML CUP MT SCH ×4 (07:50→20:00)
[2017-09-19] MEDS: LANSOPRAZOLE SOLUTAB 30 MG TAB NG SCH (08:12)
[2017-09-19] MEDS: PRAVASTATIN SOD 10 MG TAB PO SCH (08:12)
[2017-09-19] MEDS: METOPROLOL TARTRATE 50 MG TAB PO SCH ×2 (08:13→20:22)
[2017-09-19] MEDS: PANTOPRAZOLE SODIUM 40 MG VIAL IV PUSH SCH (08:13)
[2017-09-19] MEDS: HEPARIN SODIUM - SQ 10,000 UNITS/ML VIAL SQ SCH ×2 (08:13→20:22)
[2017-09-19] MEDS: SODIUM CHLORIDE 0.9% FLUSH 10 ML FLUSH IVF PRN (08:13)
[2017-09-19] MEDS: DOCUSATE SODIUM 50 MG/SENNA 8.6 MG TAB PO SCH ×2 (08:14→20:23)
--- NOTE | 2017-09-19 09:11 | HHI.CCPN ---
Subjective Remarks/Hospital Course 08/29: This is a 61-year-old male with a history of lung cancer undergoing current chemotherapy and radiation who was recently admitted on 07/19 for aspiration pneumonia. During that admission he did have episodes of paroxysmal atrial fibrillation and had an echo from 04/2017 showing an EF of 50-55%. He represents today to the emergency department with acute shortness of breath since last night. Per the ER documentation, he denies any coughing, fever, chills, or other recent symptoms or changes other than the new dyspnea. In the emergency department he was found to be in A. fib with RVR. This initially converted to sinus rhythm 1 after diltiazem 20 mg IV bolus, but then very quickly went back into atrial for ablation with rapid ventricular response. 2 doses of adenosine were not able to convert it. The patient was loaded with amiodarone and infusion was started. After this, the patient become acutely hypoxemic requiring emergent intubation. Please refer to the emergency room physician documentation for additional details regarding the decompensation. When I came to evaluate patient, the patient was recently intubated, sedated. No additional information is available from the patient due to his clinical condition. Review of systems is unobtainable. Critical care medicine is consulted to evaluate manage his acute hypoxic respiratory failure along with his acute supraventricular tachycardia. 08/30: Patient remains intubated and sedated. FiO2 down to 0.5. Patient continues to be on amiodarone infusion and heparin drip. Sedation achieved with propofol and fentanyl. Patient remains hypothermic requiring Gracia hugger, urine output 350 mL's documented since admission. 08/31: No events over the night. Patient remains intubated and sedated. Hemoglobin more stable posttransfusion. Hypothermia resolved, T-max of 100.3. Urine output remains low, 635 mL's over the last 24 hours. Oxygenation is improved. No family present at bedside. Patient remains in sinus rhythm, on amiodarone infusion. No report of melena, hematochezia or coffee-ground aspirate from NG tube. Morning chest x-ray reviewed, worsening infiltrates over the right thorax, unchanged consolidation over the left. 09/01: Afebrile. Patient was extubated yesterday afternoon and emergently intubated 1030 last night secondary to hypoxemic respiratory failure. This x- ray pending this a.m.. The patient also was noted to have severe metabolic acidosis and sodium bicarbonate infusion was initiated. Patient noted to have Pseudomonas, and placed on Zosyn. Patient continues to have leukocytosis with worsening pneumonia ID has been consulted appreciate recommendations. Patient previously DNR palliative has been consulted up on hypoxemic respiratory failure patient was noted to request intubation at that time. Palliative care consult pending. Patient continues on amiodarone infusion now in sinus rhythm. Amiodarone infusion discontinued the patient continued on metoprolol and Cardizem home medications. Hemoglobin appears stable status post 2 units transfusion 48 hours ago. Will do serial H&H's aspirin reinitiated will hold Plavix for now, and continue to follow. Subcu heparin initiated. 09/02: Afebrile. Hemoglobin stable for the last 24 hours. Plan to restart tube feeds this a.m.. Metabolic acidosis resolved, patient's sodium bicarbonate discontinued. Patient requiring increasing FiO2 requirements during the night , now at 100% ABG pending. This am chest x-ray worsening. 09/03: Late entry note patient seen at 8:15 AM .afebrile. Chest x-ray continues to worsen. FiO2 requirement slightly decreased we will attempt CPAP trials today. 09/04: Afebrile. patient awake and following commands this a.m. Currently on CPAP trials. FiO2 weaned to 45% 09/05: Afebrile. Patient tolerating CPAP trials. She noted to have elevated blood glucose level secondary methylprednisolone. Chest x-ray now improving methylprednisolone taper initiated. Patient noted to still have episodes of hypertension Cardizem increased to 90 mg every 6 hours. 09/06: Patient currently in a flutter. Received adenosine 12 mg 1 which feels a flutter. Echocardiogram CPK and troponin ordered. TSH normal during this hospitalization. Potassium magnesium both normalized. Arousable and follows commands. 09/07: Patient is currently on PSV trial 20/8 ~35%. Patient oscillating on CODE STATUS. Tolerating tube feeds. Remains in normal sinus rhythm on amiodarone drip. 09/08: No events over the night. CPAP trial was attempted this morning patient went into A. fib with RVR after 15 minutes. Patient was switched back to full support, and converted to sinus rhythm. He continues to be on amiodarone infusion and heparin drip. He is lethargic but easily arousable able to follow some commands. FiO2 at 0.5 and PEEP at 8. T-max of 99. 09/09: No events over the night. T-max of 98.9. Patient remains intubated and sedated, on propofol and fentanyl. CPAP trial attempted this morning again and patient went into A. fib with RVR and hypoxia, therefore he was placed back on PRVC. No family present at bedside. Urine output of 2350 mL over the last 24 hours. He is +22 L since admission charting is correct. 09/10: No events over the night. This morning patient is in A. fib with RVR heart rate 150, hemodynamically stable. Patient had excellent response to diuresis, urine output greater than 4 L over the last 24 hours. T-max of 98.5. No family present at bedside. Morning chest x-ray reviewed. 09/11: Patient did well over the night. He remains in sinus rhythm on amiodarone infusion. Patient was started on Lasix drip yesterday with great urine output. Patient is negative approximately 2.5 L over the last 24 hours. Afebrile, with Tmax of 99.9. Oxygenation down to 40%. 09/12: No events over the night. Patient remains afebrile with a T-max of 99.4. Patient continues to be on Lasix drip with good urine output however he still on positive fluid balance over the last 24 hours. Lasix drip increased to 7.5 mg/h this morning. He continues to be on amiodarone infusion, and sedation with propofol and fentanyl. Patient is awake, weak, following some commands. Oxygenation not significantly improved, still requiring PEEP of 7 and 50% O2. Morning chest x-ray reviewed, ET tube is in good position, no significant change compared to 2 days ago. 09/13: No events over the night. Patient remains intubated and sedated. Afebrile over the night with a T-max of 98.9. -1.5 L over the last 24 hours. 09/14 Patient is intubated and sedated with Fentanyl drip. On Amio and Lasix drips. UOP: 4.1 L overnight. 09/15 Patient remains intubated and sedated. off Lasix drip. TF held for emesis/ high residuals. Patient was in Afib with RVR and restarted on Amio drip overnight. (Amio was held during day yesterday for bradycardia) 09/16 Patient was extubated yesterday on 10L simple mask. Awake. Afebrile. Remains on Amio drip. 09/17 Patient was reintubated during night sedated with Diprivan and fentanyl drips. Afebrile. 09/18 Patient remains intubated and sedated. TF held for high residuals. Subjective: 09/19 Remains on mechanical ventilation. Will do SBT today. HAving BMs and tolerating tube feeds at 20 ml/hr, will advance. Surrogate struggling with decision making regarding goals of care. Objective Vital Signs Date Time Temp Pulse Resp B/P (MAP) Pulse Ox O2 Delivery O2 Flow Rate FiO2 09/19/17 07:57 97 35 09/19/17 06:00 68 18 172/83 (112) 09/19/17 04:00 97.7 09/18/17 20:00 Mechanical Ventilator 09/18/17 07:00 15.00 Intake and Output 09/19/17 09/19/17 09/20/17 08:00 16:00 00:00 Intake Total 250 ml Output Total 550 ml Balance -300 ml Result Diagram: 09/19/17 0440 09/19/17 0440 Other Results Microbiology Date/Time Source Procedure Growth Status 09/17/17 05:45 Sputum Endotracheal Gram Stain - Final Complete 09/17/17 05:45 Sputum Endotracheal Sputum Culture - Final HEAVY GROWTH NORMAL RESPIRATORY JANESSA Complete Imaging Last Impressions Chest X-Ray 09/17/17 0000 Signed Impressions: Service Date/Time: September 03:03 - CONCLUSION: Worsening bilateral pulmonary infiltrates with small left effusion. Jessee Gilliam Jr., MD Abdomen X-Ray 09/15/17 0000 Signed Impressions: Service Date/Time: Friday, September 15, 2017 08:57 - CONCLUSION: Nonobstructive bowel gas pattern. Eloy Georges MD CT Angiography 08/29/17 9300 Signed Impressions: Service Date/Time: Tuesday, August 29, 2017 19:36 - CONCLUSION: 1. Multilobar consolidation. 2. No evidence for pulmonary embolism. 3. Extensive coronary calcifications Pk Bae MD Objective Remarks Drips: Propofol 20 mg/kg/min Fentanyl 20 mg/h Jevity 20 mL/h GENERAL: Patient is 62 yo intubated and on some sedation. SKIN: Warm and dry, well perfused. HEAD: Normocephalic. EYES: No scleral icterus. No injection or drainage. NECK: Supple, trachea midline. No JVD or lymphadenopathy. CARDIOVASCULAR: Regular rate and rhythm without murmurs, gallops, or rubs. RESPIRATORY: Orotracheally intubated. PRBC tidal volume 500/18/I time 1/PEEP 7/ FiO2 35% breath sounds equal bilaterally. No accessory muscle use. GASTROINTESTINAL: Abdomen soft, mildly distended and mildly tympanitic. No tenderness. MUSCULOSKELETAL: No cyanosis, or edema. Neuro: On sedation. Eyes open. Moves extremities spontaneously A/P Problem List: (1) OBED (acute kidney injury) ICD Code: N17.9 - Acute kidney failure, unspecified (2) Severe protein-calorie malnutrition ICD Code: E43 - Unspecified severe protein-calorie malnutrition Status: Chronic (3) Shortness of breath ICD Code: R06.02 - Shortness of breath Status: Acute (4) Tobacco abuse ICD Code: Z72.0 - Tobacco use Status: Chronic (5) Paroxysmal A-fib ICD Code: I48.0 - Paroxysmal atrial fibrillation Status: Chronic (6) Atrial fibrillation with RVR ICD Code: I48.91 - Unspecified atrial fibrillation Status: Resolved (7) PNA (pneumonia) ICD Code: J18.9 - Pneumonia, unspecified organism (8) COPD (chronic obstructive pulmonary disease) ICD Code: J44.9 - Chronic obstructive pulmonary disease, unspecified (9) Lung cancer ICD Code: C34.90 - Malignant neoplasm of unspecified part of unspecified bronchus or lung (10) Debility ICD Code: R53.81 - Other malaise Status: Chronic (11) Pain ICD Code: R52 - Pain, unspecified Status: Chronic (12) Lung consolidation ICD Code: J18.1 - Lobar pneumonia, unspecified organism Status: Acute (13) Acute respiratory failure with hypoxia and hypercarbia ICD Code: J96.01 - Acute respiratory failure with hypoxia; J96.02 - Acute respiratory failure with hypercapnia Assessment and Plan 1. Acute respiratory failure-extubated 08/31 and required reintubation later that evening., extubated 09/15, reintubated 09/17 2. Pseudomonas pneumonia -patient remains afebrile 3. Acute COPD exacerbation 4. Lung cancer currently undergoing radiation therapy and chemotherapy prior to hospitalization 5. Atrial fibrillation with rapid ventricular response -multiple recurrences during the admission, currently in sinus rhythm 6. Elevated troponin - trending down 7. Acute blood loss anemia -r 8. OBED -resolved Plan Neuro: On Diprivan, Fentanyl infusion for sedation. Daily sedation vacation Pulm: Continue with vent support keep sats >92% Bronchodilators with Duoneb q4 hours, ICU vent bundle. Spontaneous breathing trial daily. Wean Solumederol 40mg IV Q8 Patient will likely need trach/PEG if healthcare surrogate cousin Dahiana Mayorga is agreeable. Awaiting her decision. CV: Monitor HR and BP keep MAP>65mmHg Cardizem 60mg Q6, Hydralazine 50mg Q8, Isordil 10mg Q8, Lopressor 50mg Q12 Continue pravastatin 10 mg p.o. daily Echo 09/08/17 showed EF 40-45%, large left pleural effusion : Hypernatremia Monitor renal function, I/O's, electrolytes replacement per protocol Sodium is down trending. Continue free water 250ml Q8 monitor sodium level. GI: Start advancing tube feeds via NGT( Jevity 1.with goal rate 50ml/hr per nutrition recs. ) Continue Reglan 5mg IV Q8 KUB abdomen 09/15 : Non obstructive bowel gas pattern GI is following will need PEG/EGD/colonoscopy when stable but awaiting clarity regarding goals of care. ID Pseudomonas pneumonia Sputum cx 08/30, 09/11: Pseudomonas Blood culture, sputum cx from 09/17 are negative. On Zosyn and Levaquin per ID. Endo: Medium dose SSI q6 hours. Heme: Monitor CBC, GI prophylaxis with Protonix 40mg daily DVT prophylaxis with SCDs. Continue Heparin Sq, monitor H/H Full code Palliative care medicine following. Reviewed their notes Level 3 followup. Problem Qualifiers (1) PNA (pneumonia): Qualified Codes: J18.1 - Lobar pneumonia, unspecified organism Rosalinda Ribera MD September 19, 2017 09:11
[2017-09-19] MEDS: LEVOFLOXACIN 250 MG PREMIX INJ 50 ML IV SCH (11:31)
[2017-09-19] MEDS: PROPOFOL 1000 MG/100 ML INJ 100 ML IV PRN (17:18)
[2017-09-20] VITALS (18 sets, daily range): BP systolic 127–200; BP diastolic 65–102; PULSE 50–79; RESP 18–32; TEMP 97.6–98.3; O2SAT 94–99
[2017-09-20] MEDS: fentaNYL DRIP 250 ML IV PRN ×3 (01:25→20:46)
[2017-09-20] MEDS: CHLORHEXIDINE GLUCONATE 2 % 1 PACK (2 CLOTHS) TOP SCH (04:00)
[2017-09-20] MEDS: ARTIFICIAL TEARS OPTH SOLN 15 ML BTL EACH EYE SCH ×3 (04:55→20:28)
[2017-09-20] MEDS: methylPREDNISolone SOD SUCC 40 MG/1 ML VIAL IV PUSH SCH ×3 (04:55→20:27)
[2017-09-20] MEDS: PIPERACIL-TAZO 4.5 GM PREMIX 100 ML IV SCH ×2 (04:55→10:26)
[2017-09-20] MEDS: hydrALAZINE HCL 25 MG TAB PO SCH ×2 (04:56→14:47)
[2017-09-20] MEDS: METOCLOPRAMIDE HCL 10 MG/2 ML VIAL IV PUSH SCH ×3 (04:56→20:33)
[2017-09-20] MEDS: DILTIAZEM HCL 60 MG TAB PO SCH ×2 (04:56→12:27)
[2017-09-20] MEDS: FREE WATER G-TUBE SCH ×3 (04:57→20:28)
[2017-09-20] MEDS: ISOSORBIDE DINITRATE 10 MG TAB PO SCH ×3 (04:57→20:33)
[2017-09-20] MEDS: PROPOFOL 1000 MG/100 ML INJ 100 ML IV PRN (05:05)
[2017-09-20] MEDS: INSULIN NovoLIN REGULAR SUPPLEMENTAL SCALE SQ SCH ×3 (06:00→17:29)
[2017-09-20 06:05] LABS: BICARBONATE 28.3 MEQ/L (21.0-32.0); CALCIUM 8.5 MG/DL (8.5-10.1); CREATININE 0.82 MG/DL (0.60-1.30)
[2017-09-20 07:24] LABS: AUTOMATED NEUTROPHIL # 9.2 TH/MM3 (1.8-7.7); BASOPHIL # 0.1 TH/MM3 (0-0.2); BASOPHIL % 0.6 % (0.0-2.0); HEMATOCRIT 29.9 % (39.0-51.0); HEMOGLOBIN 9.8 GM/DL (13.0-17.0); LYMPH % 0.7 % (9.0-44.0); LYMPHOCYTE # 0.1 TH/MM3 (1.0-4.8); MEAN CELL VOLUME 92.8 FL (80.0-100.0); MEAN CORPUSCULAR HEMOGLOBIN 30.6 PG (27.0-34.0); MEAN CORPUSCULAR HGB CONC 32.9 % (32.0-36.0); MEAN PLATELET VOLUME 8.9 FL (7.0-11.0); MONO % 2.7 % (0.0-8.0); MONOCYTE # 0.3 TH/MM3 (0-0.9); PLATELET COUNT 141 TH/MM3 (150-450); RED BLOOD COUNT 3.22 MIL/MM3 (4.50-5.90); WHITE BLOOD COUNT 9.5 TH/MM3 (4.0-11.0)
[2017-09-20] MEDS: CHLORHEXIDINE 0.12% (ORAL KIT) 15 ML CUP MT SCH ×4 (08:00→20:00)
[2017-09-20] MEDS: LABETALOL HCL 100 MG/20 ML VIAL IV PUSH PRN ×2 (08:21→10:55)
[2017-09-20] MEDS: PRAVASTATIN SOD 10 MG TAB PO SCH (08:21)
[2017-09-20] MEDS: HEPARIN SODIUM - SQ 10,000 UNITS/ML VIAL SQ SCH ×2 (08:22→20:27)
[2017-09-20] MEDS: LANSOPRAZOLE SOLUTAB 30 MG TAB NG SCH (08:22)
[2017-09-20] MEDS: DOCUSATE SODIUM 50 MG/SENNA 8.6 MG TAB PO SCH ×2 (08:22→20:27)
[2017-09-20] MEDS: PANTOPRAZOLE SODIUM 40 MG VIAL IV PUSH SCH (08:22)
[2017-09-20] MEDS: METOPROLOL TARTRATE 50 MG TAB PO SCH ×2 (10:26→20:26)
[2017-09-20] MEDS: LEVOFLOXACIN 250 MG PREMIX INJ 50 ML IV SCH (12:27)
[2017-09-20] MEDS: LISINOPRIL 10 MG TAB PO SCH (16:26)
[2017-09-20] MEDS: DILTIAZEM HCL 30 MG TAB PO SCH (17:29)
--- NOTE | 2017-09-20 19:04 | HHI.GIFU ---
GI Follow-up Note Consult Follow-up Subjective: Late entry-patient was seen earlier in the day Patient laying in bed comfortably, intubated.no active bleeding.Still high residual from ngt . Objective: PHYSICAL EXAMINATION: Vitals signs stable No fever Vital Signs Date Time Temp Pulse Resp B/P (MAP) Pulse Ox O2 Delivery O2 Flow Rate FiO2 09/20/17 18:00 53 09/20/17 16:11 98 35 09/20/17 16:00 35 09/20/17 16:00 98.3 66 19 180/81 (114) 97 09/20/17 16:00 66 09/20/17 14:00 62 09/20/17 13:03 98 35 09/20/17 12:00 58 09/20/17 12:00 35 09/20/17 12:00 97.6 58 18 172/84 (113) 99 HEENT: Pupils round and reactive to light; normocephalic; atraumatic; no jaundice. Throat is clear. NECK: Neck is supple, no JVD, no lymphadenopathy. CHEST: Chest is clear to auscultation and percussion. CARDIAC: Regular rate and rhythm with no murmur gallop or rubs. ABDOMEN: Soft, nondistended, nontender; no hepatosplenomegaly; bowel sounds are present in all four quadrants. EXTREMITIES: No clubbing, cyanosis, or edema. SKIN: Normal; no rash; no jaundice. 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 Available Data (labs, X- Rays, Procedues) : Laboratory Tests Test 09/19/17 04:40 09/20/17 04:08 White Blood Count 11.5 TH/MM3 9.5 TH/MM3 Red Blood Count 3.35 MIL/MM3 3.22 MIL/MM3 Hemoglobin 10.2 GM/DL 9.8 GM/DL Hematocrit 31.1 % 29.9 % Mean Corpuscular Volume 92.8 FL 92.8 FL Mean Corpuscular Hemoglobin 30.5 PG 30.6 PG Mean Corpuscular Hemoglobin Concent 32.9 % 32.9 % Red Cell Distribution Width 20.1 % 20.0 % Platelet Count 155 TH/MM3 141 TH/MM3 Mean Platelet Volume 8.6 FL 8.9 FL Neutrophils (%) (Auto) 97.2 % 96.0 % Lymphocytes (%) (Auto) 0.8 % 0.7 % Monocytes (%) (Auto) 1.5 % 2.7 % Eosinophils (%) (Auto) 0.1 % 0.0 % Basophils (%) (Auto) 0.4 % 0.6 % Neutrophils # (Auto) 11.2 TH/MM3 9.2 TH/MM3 Lymphocytes # (Auto) 0.1 TH/MM3 0.1 TH/MM3 Monocytes # (Auto) 0.2 TH/MM3 0.3 TH/MM3 Eosinophils # (Auto) 0.0 TH/MM3 0.0 TH/MM3 Basophils # (Auto) 0.0 TH/MM3 0.1 TH/MM3 CBC Comment DIFF FINAL DIFF FINAL Differential Comment Blood Urea Nitrogen 41 MG/DL 37 MG/DL Creatinine 0.99 MG/DL 0.82 MG/DL Random Glucose 175 MG/DL 130 MG/DL Calcium Level 8.7 MG/DL 8.5 MG/DL Phosphorus Level 3.8 MG/DL Magnesium Level 2.4 MG/DL Sodium Level 146 MEQ/L 146 MEQ/L Potassium Level 4.0 MEQ/L 3.5 MEQ/L Chloride Level 110 MEQ/L 108 MEQ/L Carbon Dioxide Level 27.4 MEQ/L 28.3 MEQ/L Anion Gap 9 MEQ/L 10 MEQ/L Estimat Glomerular Filtration Rate 76 ML/MIN 95 ML/MIN ASSESSMENT/PLAN: anemia-multifactorial -no active bleeding high residual from ngt -possible ileus respiratory failure -ventilator dependent Recommendations reglan as ordered advance diet slowly egd/colon when stable if remains intubated may need PEG It was a pleasure seeing Robert Adams. Thank you for this consult. Entered by: Sil Maldonado MD September 20, 2017 19:04
[2017-09-20] MEDS: hydrALAZINE HCL 50 MG TAB PO SCH (20:26)
[2017-09-21] VITALS (19 sets, daily range): BP systolic 137–183; BP diastolic 68–91; PULSE 47–86; RESP 13–26; TEMP 97.7–99.5; O2SAT 95–99
[2017-09-21] MEDS: hydrALAZINE HCL 50 MG TAB PO SCH ×4 (03:16→20:05)
[2017-09-21] MEDS: CHLORHEXIDINE GLUCONATE 2 % 1 PACK (2 CLOTHS) TOP SCH (03:16)
[2017-09-21] MEDS ORDERED: SODIUM CHLOR 0.9% 1000 ML INJ 1,000 ML IV ONE ×2 (04:00)
[2017-09-21] MEDS: METOCLOPRAMIDE HCL 10 MG/2 ML VIAL IV PUSH SCH ×3 (05:25→20:05)
[2017-09-21] MEDS: ISOSORBIDE DINITRATE 10 MG TAB PO SCH ×3 (05:25→20:05)
[2017-09-21] MEDS: methylPREDNISolone SOD SUCC 40 MG/1 ML VIAL IV PUSH SCH ×3 (05:25→20:05)
[2017-09-21] MEDS: DILTIAZEM HCL 30 MG TAB PO SCH ×5 (05:26→23:23)
[2017-09-21] MEDS: FREE WATER G-TUBE SCH ×3 (05:26→20:05)
[2017-09-21] MEDS: ARTIFICIAL TEARS OPTH SOLN 15 ML BTL EACH EYE SCH ×3 (05:26→20:05)
[2017-09-21] MEDS: INSULIN NovoLIN REGULAR SUPPLEMENTAL SCALE SQ SCH ×5 (05:36→23:23)
[2017-09-21] MEDS: LANSOPRAZOLE SOLUTAB 30 MG TAB NG SCH (07:53)
[2017-09-21] MEDS: METOPROLOL TARTRATE 50 MG TAB PO SCH ×2 (07:53→20:05)
[2017-09-21] MEDS: DOCUSATE SODIUM 50 MG/SENNA 8.6 MG TAB PO SCH ×2 (07:53→20:05)
[2017-09-21] MEDS: PRAVASTATIN SOD 10 MG TAB PO SCH (07:53)
[2017-09-21] MEDS: LISINOPRIL 10 MG TAB PO SCH (07:53)
[2017-09-21] MEDS: HEPARIN SODIUM - SQ 10,000 UNITS/ML VIAL SQ SCH ×2 (07:54→20:04)
[2017-09-21] MEDS: PANTOPRAZOLE SODIUM 40 MG VIAL IV PUSH SCH (07:54)
[2017-09-21] MEDS: CHLORHEXIDINE 0.12% (ORAL KIT) 15 ML CUP MT SCH ×4 (07:54→20:00)
[2017-09-21 08:23] LABS: AUTOMATED NEUTROPHIL # 11.8 TH/MM3 (1.8-7.7); BASOPHIL % 0.3 % (0.0-2.0); HEMATOCRIT 28.9 % (39.0-51.0); HEMOGLOBIN 9.4 GM/DL (13.0-17.0); LYMPH % 0.7 % (9.0-44.0); LYMPHOCYTE # 0.1 TH/MM3 (1.0-4.8); MEAN CELL VOLUME 93.9 FL (80.0-100.0); MEAN CORPUSCULAR HEMOGLOBIN 30.4 PG (27.0-34.0); MEAN CORPUSCULAR HGB CONC 32.4 % (32.0-36.0); MEAN PLATELET VOLUME 9.1 FL (7.0-11.0); MONO % 2.6 % (0.0-8.0); MONOCYTE # 0.3 TH/MM3 (0-0.9); NEUT % 96.4 % (16.0-70.0); PLATELET COUNT 149 TH/MM3 (150-450); RED BLOOD COUNT 3.08 MIL/MM3 (4.50-5.90); RED CELL DISTRIBUTION WIDTH 19.8 % (11.6-17.2); WHITE BLOOD COUNT 12.2 TH/MM3 (4.0-11.0)
[2017-09-21 08:40] LABS: BICARBONATE 26.1 MEQ/L (21.0-32.0); CALCIUM 7.8 MG/DL (8.5-10.1); CREATININE 0.7 MG/DL (0.60-1.30)
[2017-09-21] MEDS: fentaNYL DRIP 250 ML IV PRN (08:56)
[2017-09-21] MEDS: PROPOFOL 1000 MG/100 ML INJ 100 ML IV PRN ×2 (08:57→21:23)
--- NOTE | 2017-09-21 11:47 | HHI.IDPN ---
Note Infectious Disease Note Patient is awake and alert. Remains on the vent. Following commands. Nods to questions. No fever. Presented to the emergency department on 08/29 with respiratory symptoms. Intubated in the ED. PAST MEDICAL HISTORY: Left lung cancer, being treated with chemotherapy and radiation, coronary artery disease, peripheral arterial disease, COPD, hypertension, anxiety, depression, bilateral cataract surgery, recent pneumonia due to Pseudomonas in 04/2017 and 07/2017, history of iliac artery bypass surgery. ALLERGIES: NO KNOWN DRUG ALLERGIES. Antibiotics: stopped 09/20 Objective: Current Medications Medications (Trade) Dose Ordered Sig/B[place] Route PRN Reason Start Time Stop Time Status Last Admin Dose Admin Sodium Chloride (NS Flush) 2 ml UNSCH PRN IVF FLUSH AFTER USING IV ACCESS 08/29/17 18:00 09/19/17 08:13 Potassium Chloride 100 ml @ 50 mls/hr Q2H PRN IV For Potassium 2.8 - 3.2 mEq/L 08/29/17 18:45 Potassium Chloride 100 ml @ 50 mls/hr Q2H PRN IV For Potassium 2.8 - 3.2 mEq/L 08/29/17 18:45 09/16/17 15:31 Potassium Bicarb/ Potassium Chloride (K-Lyte Cl Eff) 50 meq UNSCH PRN PO For Potassium 3.3 - 3.5 mEq/L 08/29/17 18:45 09/13/17 04:56 Potassium Chloride 100 ml @ 25 mls/hr UNSCH PRN IV For Potassium 3.3 - 3.5 mEq/L 08/29/17 18:45 Potassium Chloride 100 ml @ 50 mls/hr Q2H PRN IV For Potassium 3.3 - 3.5 mEq/L 08/29/17 18:45 09/11/17 10:17 Magnesium Sulfate 4 gm/Sodium Chloride 100 ml @ 50 mls/hr UNSCH PRN IV For Magnesium 0.9 - 1.1 mg/dL 08/29/17 18:45 Magnesium Oxide (Mag-Ox) 800 mg UNSCH PRN PO For Magnesium 1.2 - 1.6 mg/dL 08/29/17 18:45 Magnesium Sulfate 2 gm/Sodium Chloride 100 ml @ 50 mls/hr UNSCH PRN IV For Magnesium 1.2 - 1.6 mg/dL 08/29/17 18:45 Potassium Phosphate (K-Phos) 2,000 mg Q4H PRN PO For Phosphorus < 2.5 mg/dL 08/29/17 18:45 Sodium Phosphate 30 mmol/Sodium Chloride 250 ml @ 42 mls/hr UNSCH PRN IV For Phosphorus < 2.5 mg/dL 08/29/17 18:45 Potassium Phosphate (K-Phos) 2,000 mg UNSCH PRN PO/TUBE SEE LABEL COMMENTS 08/29/17 18:45 Potassium Phosphate 30 mmol/ Sodium Chloride 260 ml @ 42 mls/hr UNSCH PRN IV SEE LABEL COMMENTS 08/29/17 18:45 Dextrose (D50w (Vial) Inj) 25 ml UNSCH PRN IV PUSH HYPOGLYCEMIA-SEE COMMENTS 08/29/17 18:45 Insulin Human Regular (NovoLIN R SUPPLEMENTAL SCALE) 1 Q6HR SQ 08/30/17 00:00 09/20/17 17:29 Ondansetron HCl (Zofran Inj) 4 mg Q6H PRN IV PUSH NAUSEA OR VOMITING 08/29/17 18:45 09/15/17 00:22 Miscellaneous Information ([facility] [place] [facility]) 1 Q361D XX 08/29/17 18:45 08/29/17 18:45 Chlorhexidine Gluconate (Chlorhexidine 2% Cloth) 3 pack Taper DAILY@04 TOP 08/30/17 04:00 08/26/18 03:59 09/21/17 03:16 Chlorhexidine Gluconate (Chlorhexidine 2% Cloth) 3 pack UNSCH PRN TOP HYGIENIC CARE 08/29/17 18:45 Senna/Docusate Sodium (Nata-Colace) 1 tab BID PO 08/29/17 21:00 09/18/17 20:11 Magnesium Hydroxide (Milk Of Magnesia Liq) 30 ml Q12H PRN PO Mild constipation 08/29/17 18:45 Sodium Chloride (NS Flush) 2 ml UNSCH PRN IVF FLUSH AFTER USING IV ACCESS 08/29/17 19:30 09/10/17 20:28 Chlorhexidine Gluconate (Peridex 0.12% Liq) 15 ml BID@08,20 MT 09/01/17 08:00 09/21/17 07:54 Pravastatin Sodium (Pravachol) 10 mg DAILY PO 09/01/17 09:00 09/21/17 07:53 Metoprolol Tartrate (Lopressor) 50 mg Q12HR PO 09/01/17 09:00 09/21/17 07:53 Aspirin (Aspirin Chew) 81 mg DAILY CHEW 09/01/17 09:00 Future Hold 09/11/17 08:03 Sennosides (Senokot) 17.2 mg Q12H PRN PO Moderate constipation 09/02/17 08:15 Bisacodyl (Dulcolax Supp) 10 mg DAILY PRN RECTAL SEVERE CONSITIPATION 09/02/17 08:15 Lactulose (Lactulose Liq) 30 ml DAILY PRN PO SEVERE CONSITIPATION 09/02/17 08:15 Labetalol HCl (Trandate Inj) 10 mg Q4H PRN IV PUSH SBP>160, DBP>90 09/03/17 22:00 09/20/17 08:21 Hydralazine HCl (Apresoline Inj) 20 mg Q4H PRN IV PUSH SBP>160, DBP>90 09/03/17 22:00 09/16/17 22:50 Albuterol Sulfate (Albuterol Neb) 2.5 mg Q2HR NEB PRN NEB dyspnea 09/06/17 12:30 09/13/17 20:24 Artificial Tears (Tears Naturale Opth Soln) 1 drop Q8HR EACH EYE 09/06/17 14:00 09/21/17 05:26 Lansoprazole (Prevacid Odt) 30 mg DAILY NG 09/07/17 09:00 09/21/17 07:53 Clopidogrel Bisulfate (Plavix) 75 mg DAILY PO 09/07/17 09:00 Future Hold 09/11/17 08:04 Labetalol HCl (Trandate Inj) 10 mg Q1HR PRN IV PUSH SBP>160, DBP>90, HR>65 09/07/17 16:00 09/20/17 10:55 Hydralazine HCl (Apresoline Inj) 10 mg Q1HR PRN IV PUSH SBP>160, DBP>90 09/07/17 16:00 09/16/17 03:13 Nitroglycerin (Nitroglycerin 2% Oint) 2 inch Q6HR PRN TOPICAL SBP>160, DBP>90 09/07/17 16:00 09/16/17 02:15 Isosorbide Dinitrate (Isordil) 10 mg Q8HR PO 09/07/17 22:00 09/21/17 05:25 Albuterol/ Ipratropium (Duoneb Neb) 1 ampule Q2HR NEB PRN NEB SHORTNESS OF BREATH 09/15/17 14:00 09/16/17 18:30 Propofol 100 ml @ 1.65 mls/hr TITRATE PRN IV SEDATION 09/17/17 02:45 09/21/17 08:57 Chlorhexidine Gluconate (Peridex 0.12% Liq) 15 ml BID@08,20 MT 09/17/17 08:00 09/19/17 20:00 Fentanyl Citrate 250 ml @ 5 mls/hr TITRATE PRN IV SEDATION 09/17/17 05:30 09/21/17 08:56 Pantoprazole Sodium (Protonix Inj) 40 mg DAILY IV PUSH 09/17/17 09:45 09/21/17 07:54 Water (Free Water) VOLUME OF WATER: 250 ML Q8HR G-TUBE 09/18/17 14:00 09/21/17 05:26 Metoclopramide HCl (Reglan Inj) 5 mg Q8HR IV PUSH 09/18/17 08:15 09/21/17 05:25 Heparin Sodium (Porcine) (Heparin Inj) 5,000 units Q12HR SQ 09/18/17 09:00 09/21/17 07:54 Methylprednisolone Sodium Succinate (SoluMEDROL INJ) 40 mg Q8H IV PUSH 09/19/17 13:00 09/21/17 05:25 Lisinopril (Prinivil) 10 mg DAILY PO 09/20/17 15:00 09/21/17 07:53 Diltiazem HCl (Cardizem) 30 mg Q6HR PO 09/20/17 18:00 09/20/17 17:29 Hydralazine HCl (Apresoline) 50 mg Q6H PO 09/20/17 21:00 09/21/17 07:53 OBJECTIVE: Vital Signs Date Time Temp Pulse Resp B/P (MAP) Pulse Ox O2 Delivery O2 Flow Rate FiO2 09/21/17 10:00 56 09/21/17 08:00 35 09/21/17 08:00 63 09/21/17 08:00 97.7 63 17 150/75 (100) 98 09/21/17 07:36 99 35 09/21/17 07:00 97 Mechanical Ventilator 35 09/21/17 06:00 77 09/21/17 04:06 99 35 09/21/17 04:00 35 09/21/17 04:00 98.5 54 24 141/68 (92) 99 09/21/17 04:00 54 09/21/17 02:00 47 09/21/17 00:27 98 35 09/21/17 00:00 98.3 52 26 137/71 (93) 09/21/17 00:00 35 09/21/17 00:00 52 09/20/17 22:00 50 09/20/17 20:28 99 35 09/20/17 20:00 35 09/20/17 20:00 98.3 53 32 127/65 (85) 98 09/20/17 20:00 53 09/20/17 19:00 98 Mechanical Ventilator 35 09/20/17 18:00 53 09/20/17 16:11 98 35 09/20/17 16:00 35 09/20/17 16:00 98.3 66 19 180/81 (114) 97 09/20/17 16:00 66 09/20/17 14:00 62 09/20/17 13:03 98 35 09/20/17 12:00 58 09/20/17 12:00 35 09/20/17 12:00 97.6 58 18 172/84 (113) 99 Laboratory Tests Test 09/20/17 04:08 09/21/17 06:43 White Blood Count 9.5 TH/MM3 12.2 TH/MM3 Red Blood Count 3.22 MIL/MM3 3.08 MIL/MM3 Hemoglobin 9.8 GM/DL 9.4 GM/DL Hematocrit 29.9 % 28.9 % Mean Corpuscular Volume 92.8 FL 93.9 FL Mean Corpuscular Hemoglobin 30.6 PG 30.4 PG Mean Corpuscular Hemoglobin Concent 32.9 % 32.4 % Red Cell Distribution Width 20.0 % 19.8 % Platelet Count 141 TH/MM3 149 TH/MM3 Mean Platelet Volume 8.9 FL 9.1 FL Neutrophils (%) (Auto) 96.0 % 96.4 % Lymphocytes (%) (Auto) 0.7 % 0.7 % Monocytes (%) (Auto) 2.7 % 2.6 % Eosinophils (%) (Auto) 0.0 % 0.0 % Basophils (%) (Auto) 0.6 % 0.3 % Neutrophils # (Auto) 9.2 TH/MM3 11.8 TH/MM3 Lymphocytes # (Auto) 0.1 TH/MM3 0.1 TH/MM3 Monocytes # (Auto) 0.3 TH/MM3 0.3 TH/MM3 Eosinophils # (Auto) 0.0 TH/MM3 0.0 TH/MM3 Basophils # (Auto) 0.1 TH/MM3 0.0 TH/MM3 CBC Comment DIFF FINAL DIFF FINAL Differential Comment Laboratory Tests Test 09/20/17 04:08 09/21/17 06:43 Blood Urea Nitrogen 37 MG/DL 36 MG/DL Creatinine 0.82 MG/DL 0.70 MG/DL Random Glucose 130 MG/DL 126 MG/DL Calcium Level 8.5 MG/DL 7.8 MG/DL Sodium Level 146 MEQ/L 146 MEQ/L Potassium Level 3.5 MEQ/L 4.2 MEQ/L Chloride Level 108 MEQ/L 113 MEQ/L Carbon Dioxide Level 28.3 MEQ/L 26.1 MEQ/L Anion Gap 10 MEQ/L 7 MEQ/L Estimat Glomerular Filtration Rate 95 ML/MIN 114 ML/MIN Microbiology Date/Time Source Procedure Growth Status 09/17/17 05:35 Blood Peripheral Aerobic Blood Culture - Preliminary NO GROWTH IN 1 DAY Resulted 09/17/17 05:35 Blood Peripheral Anaerobic Blood Culture - Preliminary NO GROWTH IN 1 DAY Resulted 09/17/17 05:30 Blood Peripheral Aerobic Blood Culture - Preliminary NO GROWTH IN 1 DAY Resulted 09/17/17 05:30 Blood Peripheral Anaerobic Blood Culture - Preliminary NO GROWTH IN 1 DAY Resulted 09/17/17 12:00 Sputum Endotracheal Gram Stain - Final Resulted 09/17/17 12:00 Sputum Endotracheal Sputum Culture - Preliminary RARE GROWTH NORMAL RESPIRATORY JANSESA ... Resulted 09/17/17 05:45 Sputum Endotracheal Gram Stain - Final Resulted 09/17/17 05:45 Sputum Endotracheal Sputum Culture - Preliminary HEAVY GROWTH NORMAL RESPIRATORY JANESSA... Resulted Microbiology Date/Time Source Procedure Growth Status 09/11/17 18:30 Stool Stool Stool Occult Blood (ANDREW) - Final HEMOCCULT POSITIVE Complete 09/11/17 17:30 Sputum Endotracheal Gram Stain - Final Resulted 09/11/17 17:30 Sputum Culture - Preliminary Pseudomonas Species Resulted IMAGING: Abdomen X-Ray 09/18/17 0000 Signed Impressions: Service Date/Time: Monday, September 18, 2017 11:07 - CONCLUSION: Dense consolidative opacity at the left lung base. Nonspecific gas pattern with a paucity of bowel gas seen. Eloy Georges MD Chest X-Ray 09/17/17 0000 Signed Impressions: Service Date/Time: September 03:03 - CONCLUSION: Worsening bilateral pulmonary infiltrates with small left effusion. Jessee Gilliam Jr., MD Chest X-Ray 09/17/17 0000 Signed Impressions: Service Date/Time: September 03:03 - CONCLUSION: Worsening bilateral pulmonary infiltrates with small left effusion. Jessee Gilliam Jr., MD Chest X-Ray 09/14/17 0600 Signed Impressions: Service Date/Time: Thursday, September 14, 2017 05:14 - CONCLUSION: 1. Left basilar airspace disease with small to moderate left effusion. Marked improvement in right basilar airspace disease since September 12. David Jay MD Chest X-Ray 09/02/17 0000 Signed Impressions: Service Date/Time: Saturday, September 02, 2017 06:32 - CONCLUSION: Bilateral airspace disease with interval worsening in the left base. Possible developing left-sided effusion. Jaret Crouch MD Abdomen X-Ray 08/31/17 0000 Signed Impressions: Service Date/Time: Thursday, August 31, 2017 20:34 - CONCLUSION: 1. Nasogastric tube tip in distal stomach. David Jay MD CT Angiography 08/29/17 1849 Signed Impressions: Service Date/Time: Tuesday, August 29, 2017 19:36 - CONCLUSION: 1. Multilobar consolidation. 2. No evidence for pulmonary embolism. 3. Extensive coronary calcifications Pk Bae MD PHYSICAL EXAMINATION: GENERAL: No acute distress. HEENT: Pupils reactive to light. No icterus. Moist oral mucosa. NECK: No swelling. No adenopathy. LUNGS: Coarse breath sounds bilateral. HEART: Irregular rate and rhythm. Slight systolic murmur at the left sternal border. ABDOMEN: Bowel sounds present, soft. Nontender. EXTREMITIES: Ecchymosis at the upper extremities. No edema No clubbing or cyanosis. SKIN: No diffuse rash. NEUROLOGIC: Unable to assess. Patient intubated. PSYCHIATRIC: Unable to assess. IMPRESSION: 1. Bilateral pneumonia due to Pseudomonas. 2. Acute respiratory failure. Reintubated. Ventilator dependent. 3. History of lung cancer. RECOMMENDATIONS: 1. Monitor clinical status off antibiotics. 2. Consider tracheostomy. Herve Zarate MD September 21, 2017 11:47
--- NOTE | 2017-09-21 11:50 | HHI.GIFU ---
Subjective Remarks Pt resting in bed, intubated on vent. (Joann Rubio) Objective Vitals I&O Vital Signs Date Time Temp Pulse Resp B/P (MAP) Pulse Ox O2 Delivery O2 Flow Rate FiO2 09/21/17 10:00 56 09/21/17 08:00 35 09/21/17 08:00 63 09/21/17 08:00 97.7 63 17 150/75 (100) 98 09/21/17 07:36 99 35 09/21/17 07:00 97 Mechanical Ventilator 35 09/21/17 06:00 77 09/21/17 04:06 99 35 09/21/17 04:00 35 09/21/17 04:00 98.5 54 24 141/68 (92) 99 09/21/17 04:00 54 09/21/17 02:00 47 09/21/17 00:27 98 35 09/21/17 00:00 98.3 52 26 137/71 (93) 09/21/17 00:00 35 09/21/17 00:00 52 09/20/17 22:00 50 09/20/17 20:28 99 35 09/20/17 20:00 35 09/20/17 20:00 98.3 53 32 127/65 (85) 98 09/20/17 20:00 53 09/20/17 19:00 98 Mechanical Ventilator 35 09/20/17 18:00 53 09/20/17 16:11 98 35 09/20/17 16:00 35 09/20/17 16:00 98.3 66 19 180/81 (114) 97 09/20/17 16:00 66 09/20/17 14:00 62 09/20/17 13:03 98 35 09/20/17 12:00 58 09/20/17 12:00 35 09/20/17 12:00 97.6 58 18 172/84 (113) 99 I/O 09/20/17 09/20/17 09/20/17 09/21/17 09/21/17 09/21/17 07:00 15:00 23:00 07:00 15:00 23:00 Intake Total 1431 ml 777 ml 2883 ml Output Total 500 ml 650 ml 400 ml Balance 931 ml 127 ml 2483 ml IV Total 650 ml 400 ml 2000 ml Tube Feeding 281 ml 177 ml 383 ml Other 500 ml 200 ml 500 ml Output Urine Total 500 ml 650 ml 400 ml # Bowel Movements 1 0 Laboratory Laboratory Tests Test 09/21/17 06:43 White Blood Count 12.2 Red Blood Count 3.08 Hemoglobin 9.4 Hematocrit 28.9 Mean Corpuscular Volume 93.9 Mean Corpuscular Hemoglobin 30.4 Mean Corpuscular Hemoglobin Concent 32.4 Red Cell Distribution Width 19.8 Platelet Count 149 Mean Platelet Volume 9.1 Neutrophils (%) (Auto) 96.4 Lymphocytes (%) (Auto) 0.7 Monocytes (%) (Auto) 2.6 Eosinophils (%) (Auto) 0.0 Basophils (%) (Auto) 0.3 Neutrophils # (Auto) 11.8 Lymphocytes # (Auto) 0.1 Monocytes # (Auto) 0.3 Eosinophils # (Auto) 0.0 Basophils # (Auto) 0.0 CBC Comment DIFF FINAL Differential Comment Blood Urea Nitrogen 36 Creatinine 0.70 Random Glucose 126 Calcium Level 7.8 Sodium Level 146 Potassium Level 4.2 Chloride Level 113 Carbon Dioxide Level 26.1 Anion Gap 7 Estimat Glomerular Filtration Rate 114 Date/Time Source Procedure Growth Status 09/17/17 05:35 Blood Peripheral Aerobic Blood Culture - Preliminary NO GROWTH IN 4 DAYS Resulted 09/17/17 05:35 Blood Peripheral Anaerobic Blood Culture - Preliminary NO GROWTH IN 4 DAYS Resulted 09/11/17 18:30 Stool Stool Stool Occult Blood (ANDREW) - Final HEMOCCULT POSITIVE Complete 09/17/17 12:00 Sputum Endotracheal Gram Stain - Final Complete 09/17/17 12:00 Sputum Endotracheal Sputum Culture - Final RARE GROWTH NORMAL RESPIRATORY JANESSA Complete 08/29/17 19:10 Urine Catheterized Urine Streptococcus pneumoniae Antigen (M - Final PRESUMPTIVE NEGATIVE FOR STREPTOCOCCU... Complete Imaging Last Impressions Chest X-Ray 09/19/17 0000 Signed Impressions: Service Date/Time: Tuesday, September 19, 2017 03:34 - CONCLUSION: 1. Improved edema pattern with persistent perihilar consolidation on the left. Improved left effusion. David Jay MD Abdomen X-Ray 09/18/17 0000 Signed Impressions: Service Date/Time: Monday, September 18, 2017 11:07 - CONCLUSION: Dense consolidative opacity at the left lung base. Nonspecific gas pattern with a paucity of bowel gas seen. Eloy Georges MD CT Angiography 08/29/17 1849 Signed Impressions: Service Date/Time: Tuesday, August 29, 2017 19:36 - CONCLUSION: 1. Multilobar consolidation. 2. No evidence for pulmonary embolism. 3. Extensive coronary calcifications Pk Bae MD Physical Exam HEENT: Normocephalic; atraumatic CHEST: coarse CARDIAC: RRR ABDOMEN: Distended, soft, bowel sounds active. NGT EXTREMITIES: No clubbing, cyanosis, or edema. SKIN: Normal; no rash; no jaundice. 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 - A-fib RVR on admission - Respiratory failure- was reintubated 09/16 during the night - History of lung cancer, PNA- per CCM (09/18) H/H continues to trend down with no obvious GIB. No BM has been documented since 09/15. Pt was previously receiving TF through [facility], however this is now on hold due to high residuals. Abdomen does seem distended but soft. Awaiting palliative care recommendations regarding treatment plan. Would likely be able to do EGD/colonoscopy on Thursday if patient remains intubated, could also place PEG at that time if desired, will continue to follow and determine plan. Leukocytosis improving- pt on Zosyn and Levaquin, afebrile 09/21/17 HH relatively stable. palliative care f/u noted, HCS having difficulty with decision making. on intubation. PLAN - EGD +/- PEG and colonoscopy when stable if aggressive care desired - Notify GI of active bleeding - Notify GI if PEG is desired - Await palliative care fu - GI will sign off. please reconsult if needed Pt has been seen and examined by myself and Dr. Avina and this note is written on her behalf (Joann Rubio) Physician Comments Patient seen and examined Agree with above Continue with current supportive care Monitor labs We will sign off (Willis Avina MD) Joann Rubio September 21, 2017 11:50 Willis Avina MD September 21, 2017 22:07
--- NOTE | 2017-09-21 13:33 | HHI.CCPN ---
Subjective Remarks/Hospital Course 08/29: This is a 61-year-old male with a history of lung cancer undergoing current chemotherapy and radiation who was recently admitted on 07/19 for aspiration pneumonia. During that admission he did have episodes of paroxysmal atrial fibrillation and had an echo from 04/2017 showing an EF of 50-55%. He represents today to the emergency department with acute shortness of breath since last night. Per the ER documentation, he denies any coughing, fever, chills, or other recent symptoms or changes other than the new dyspnea. In the emergency department he was found to be in A. fib with RVR. This initially converted to sinus rhythm 1 after diltiazem 20 mg IV bolus, but then very quickly went back into atrial for ablation with rapid ventricular response. 2 doses of adenosine were not able to convert it. The patient was loaded with amiodarone and infusion was started. After this, the patient become acutely hypoxemic requiring emergent intubation. Please refer to the emergency room physician documentation for additional details regarding the decompensation. When I came to evaluate patient, the patient was recently intubated, sedated. No additional information is available from the patient due to his clinical condition. Review of systems is unobtainable. Critical care medicine is consulted to evaluate manage his acute hypoxic respiratory failure along with his acute supraventricular tachycardia. 08/30: Patient remains intubated and sedated. FiO2 down to 0.5. Patient continues to be on amiodarone infusion and heparin drip. Sedation achieved with propofol and fentanyl. Patient remains hypothermic requiring Gracia hugger, urine output 350 mL's documented since admission. 08/31: No events over the night. Patient remains intubated and sedated. Hemoglobin more stable posttransfusion. Hypothermia resolved, T-max of 100.3. Urine output remains low, 635 mL's over the last 24 hours. Oxygenation is improved. No family present at bedside. Patient remains in sinus rhythm, on amiodarone infusion. No report of melena, hematochezia or coffee-ground aspirate from NG tube. Morning chest x-ray reviewed, worsening infiltrates over the right thorax, unchanged consolidation over the left. 09/01: Afebrile. Patient was extubated yesterday afternoon and emergently intubated 1030 last night secondary to hypoxemic respiratory failure. This x- ray pending this a.m.. The patient also was noted to have severe metabolic acidosis and sodium bicarbonate infusion was initiated. Patient noted to have Pseudomonas, and placed on Zosyn. Patient continues to have leukocytosis with worsening pneumonia ID has been consulted appreciate recommendations. Patient previously DNR palliative has been consulted up on hypoxemic respiratory failure patient was noted to request intubation at that time. Palliative care consult pending. Patient continues on amiodarone infusion now in sinus rhythm. Amiodarone infusion discontinued the patient continued on metoprolol and Cardizem home medications. Hemoglobin appears stable status post 2 units transfusion 48 hours ago. Will do serial H&H's aspirin reinitiated will hold Plavix for now, and continue to follow. Subcu heparin initiated. 09/02: Afebrile. Hemoglobin stable for the last 24 hours. Plan to restart tube feeds this a.m.. Metabolic acidosis resolved, patient's sodium bicarbonate discontinued. Patient requiring increasing FiO2 requirements during the night , now at 100% ABG pending. This am chest x-ray worsening. 09/03: Late entry note patient seen at 8:15 AM .afebrile. Chest x-ray continues to worsen. FiO2 requirement slightly decreased we will attempt CPAP trials today. 09/04: Afebrile. patient awake and following commands this a.m. Currently on CPAP trials. FiO2 weaned to 45% 09/05: Afebrile. Patient tolerating CPAP trials. She noted to have elevated blood glucose level secondary methylprednisolone. Chest x-ray now improving methylprednisolone taper initiated. Patient noted to still have episodes of hypertension Cardizem increased to 90 mg every 6 hours. 09/06: Patient currently in a flutter. Received adenosine 12 mg 1 which feels a flutter. Echocardiogram CPK and troponin ordered. TSH normal during this hospitalization. Potassium magnesium both normalized. Arousable and follows commands. 09/07: Patient is currently on PSV trial 20/8 ~35%. Patient oscillating on CODE STATUS. Tolerating tube feeds. Remains in normal sinus rhythm on amiodarone drip. 09/08: No events over the night. CPAP trial was attempted this morning patient went into A. fib with RVR after 15 minutes. Patient was switched back to full support, and converted to sinus rhythm. He continues to be on amiodarone infusion and heparin drip. He is lethargic but easily arousable able to follow some commands. FiO2 at 0.5 and PEEP at 8. T-max of 99. 09/09: No events over the night. T-max of 98.9. Patient remains intubated and sedated, on propofol and fentanyl. CPAP trial attempted this morning again and patient went into A. fib with RVR and hypoxia, therefore he was placed back on PRVC. No family present at bedside. Urine output of 2350 mL over the last 24 hours. He is +22 L since admission charting is correct. 09/10: No events over the night. This morning patient is in A. fib with RVR heart rate 150, hemodynamically stable. Patient had excellent response to diuresis, urine output greater than 4 L over the last 24 hours. T-max of 98.5. No family present at bedside. Morning chest x-ray reviewed. 09/11: Patient did well over the night. He remains in sinus rhythm on amiodarone infusion. Patient was started on Lasix drip yesterday with great urine output. Patient is negative approximately 2.5 L over the last 24 hours. Afebrile, with Tmax of 99.9. Oxygenation down to 40%. 09/12: No events over the night. Patient remains afebrile with a T-max of 99.4. Patient continues to be on Lasix drip with good urine output however he still on positive fluid balance over the last 24 hours. Lasix drip increased to 7.5 mg/h this morning. He continues to be on amiodarone infusion, and sedation with propofol and fentanyl. Patient is awake, weak, following some commands. Oxygenation not significantly improved, still requiring PEEP of 7 and 50% O2. Morning chest x-ray reviewed, ET tube is in good position, no significant change compared to 2 days ago. 09/13: No events over the night. Patient remains intubated and sedated. Afebrile over the night with a T-max of 98.9. -1.5 L over the last 24 hours. 09/14 Patient is intubated and sedated with Fentanyl drip. On Amio and Lasix drips. UOP: 4.1 L overnight. 09/15 Patient remains intubated and sedated. off Lasix drip. TF held for emesis/ high residuals. Patient was in Afib with RVR and restarted on Amio drip overnight. (Amio was held during day yesterday for bradycardia) 09/16 Patient was extubated yesterday on 10L simple mask. Awake. Afebrile. Remains on Amio drip. 09/17 Patient was reintubated during night sedated with Diprivan and fentanyl drips. Afebrile. 09/18 Patient remains intubated and sedated. TF held for high residuals. 09/19 Remains on mechanical ventilation. Will do SBT today. HAving BMs and tolerating tube feeds at 20 ml/hr, will advance. Surrogate struggling with decision making regarding goals of care. Subjective: 09/20 Hypertensive and CPAP not tolerated, meds adjusted. . Tube feeds held due to residual 240, resuming. Afebrile. 09/21: Remains orally intubated on mechanical ventilation. Objective Vital Signs Date Time Temp Pulse Resp B/P (MAP) Pulse Ox O2 Delivery O2 Flow Rate FiO2 09/21/17 12:00 68 09/21/17 12:00 35 09/21/17 12:00 98.3 19 171/85 (113) 99 09/21/17 07:00 Mechanical Ventilator 09/19/17 19:00 Intake and Output 09/21/17 09/21/17 09/22/17 08:00 16:00 00:00 Intake Total 2883 ml Output Total 400 ml Balance 2483 ml Result Diagram: 09/21/17 0643 09/21/17 0643 Imaging Last Impressions Chest X-Ray 09/17/17 0000 Signed Impressions: Service Date/Time: September 03:03 - CONCLUSION: Worsening bilateral pulmonary infiltrates with small left effusion. Jessee Gilliam Jr., MD Abdomen X-Ray 09/15/17 0000 Signed Impressions: Service Date/Time: Friday, September 15, 2017 08:57 - CONCLUSION: Nonobstructive bowel gas pattern. Eloy Georges MD CT Angiography 08/29/17 0274 Signed Impressions: Service Date/Time: Tuesday, August 29, 2017 19:36 - CONCLUSION: 1. Multilobar consolidation. 2. No evidence for pulmonary embolism. 3. Extensive coronary calcifications Pk Bae MD Objective Remarks Drips: Propofol 20 mg/kg/min Fentanyl 250 mg/h Jevity 20 mL/h GENERAL: Patient is 62 yo intubated and on sedation. SKIN: Warm and dry, well perfused. HEAD: Normocephalic. EYES: No scleral icterus. No injection or drainage. NECK: Supple, trachea midline. No JVD or lymphadenopathy. CARDIOVASCULAR: Regular rate and rhythm without murmurs, gallops, or rubs. RESPIRATORY: Orotracheally intubated. Coarse bilateral breath sounds. GASTROINTESTINAL: Abdomen soft, mildly distended and mildly tympanitic. No tenderness. MUSCULOSKELETAL: No cyanosis, or edema. Neuro: On sedation. Eyes open. Moves extremities spontaneously A/P Problem List: (1) OBED (acute kidney injury) ICD Code: N17.9 - Acute kidney failure, unspecified (2) Severe protein-calorie malnutrition ICD Code: E43 - Unspecified severe protein-calorie malnutrition Status: Chronic (3) Shortness of breath ICD Code: R06.02 - Shortness of breath Status: Acute (4) Tobacco abuse ICD Code: Z72.0 - Tobacco use Status: Chronic (5) Paroxysmal A-fib ICD Code: I48.0 - Paroxysmal atrial fibrillation Status: Chronic (6) Atrial fibrillation with RVR ICD Code: I48.91 - Unspecified atrial fibrillation Status: Resolved (7) PNA (pneumonia) ICD Code: J18.9 - Pneumonia, unspecified organism (8) COPD (chronic obstructive pulmonary disease) ICD Code: J44.9 - Chronic obstructive pulmonary disease, unspecified (9) Lung cancer ICD Code: C34.90 - Malignant neoplasm of unspecified part of unspecified bronchus or lung (10) Debility ICD Code: R53.81 - Other malaise Status: Chronic (11) Pain ICD Code: R52 - Pain, unspecified Status: Chronic (12) Lung consolidation ICD Code: J18.1 - Lobar pneumonia, unspecified organism Status: Acute (13) Acute respiratory failure with hypoxia and hypercarbia ICD Code: J96.01 - Acute respiratory failure with hypoxia; J96.02 - Acute respiratory failure with hypercapnia Assessment and Plan 1. Acute respiratory failure-intubated 08/29, extubated 08/31 and required reintubation later that evening., extubated 09/15, reintubated 09/17 2. Pseudomonas pneumonia -patient remains afebrile 3. Acute COPD exacerbation 4. Lung cancer currently undergoing radiation therapy and chemotherapy prior to hospitalization 5. Atrial fibrillation with rapid ventricular response -multiple recurrences during the admission, currently in sinus rhythm 6. Elevated troponin - trending down 7. Acute blood loss anemia -r 8. OBED -resolved Plan Neuro: On Diprivan, Fentanyl infusion for sedation. Daily sedation vacation Pulm: Continue with vent support keep sats >92% Bronchodilators with Duoneb q4 hours, ICU vent bundle. Spontaneous breathing trial daily. Weaned Solumederol 40mg IV Q8 Patient will need trach/PEG if healthcare surrogate cousin Dahiana Mayorga feels that is in keeping with patient's wishes. Awaiting her decision. CV: Hypertensive. Will adjust cardizem down as his low heart rate is limiting ability to push up doses of antihypertensives. Cardizem 30 mg every 6 hours. Increase hydralazine 50 p.o. every 6, start lisinopril 10 mg p.o. daily, continue Isordil 10 p.o. every 8 hours, metoprolol 50 mg p.o. every 12 hours Labetalol as needed. Hydralazine IV shortage. Continue pravastatin 10 mg p.o. daily Echo 09/08/17 showed EF 40-45%, large left pleural effusion : Hypernatremia Monitor renal function, I/O's, electrolytes replacement per protocol Sodium is down trending. Continue free water 250ml Q8 monitor sodium level. GI: Start advancing tube feeds via NGT( Jevity 1.with goal rate 50ml/hr per nutrition recs. ) Continue Reglan 5mg IV Q8 KUB abdomen 09/15 : Non obstructive bowel gas pattern GI is following will need PEG/EGD/colonoscopy when stable but awaiting clarity regarding goals of care. ID Pseudomonas pneumonia Sputum cx 08/30, 09/11: Pseudomonas Blood culture, sputum cx from 09/17 are negative. Zosyn and Levaquin discontinued per ID. Monitoring off antibiotics per Endo: Medium dose SSI q6 hours. Heme: Monitor CBC, GI prophylaxis with Protonix 40mg daily DVT prophylaxis with SCDs. Continue Heparin Sq, monitor H/H Full code Palliative care medicine following. Reviewed their notes Level 2 followup. Problem Qualifiers (1) PNA (pneumonia): Qualified Codes: J18.1 - Lobar pneumonia, unspecified organism Samy Valdez MD September 21, 2017 13:33
--- NOTE | 2017-09-21 17:33 | HHI.HCPN ---
Reason for visit a. To assist with evaluation and management of symptoms including: Shortness of breath, pain, debility b. To assist medical decision maker(s) with: better understanding of current medical conditions; weighing benefits/burdens of medical treatment options; making medical treatment decisions. Subjective/Interval History Follow-up medically necessary for symptom management and clarification of goals of care. Patient remains intubated on mechanical ventilation. Patient is currently sedated on propofol infusion at 30 mcg/kg/min, and fentanyl infusion at 100 mcg/hr. Patient's eyes open, following simple commands, appears to nod and shake his head appropriately to simple questions. Patient shakes head "no" for pain. Per bedside RN patient has failed CPAP trial this morning. Patient on FiO2 35%. Laboratory workup today revealing WBC 12.2, hemoglobin 9.4, hematocrit 28.9, platelet count 149, sodium 146, potassium 4.2, BUN/creatinine 36/0.70, calcium 7.8. Last chest x-ray on 09/1917 revealed improved edema pattern with persistent perihilar consolidation on the left and improved left effusion. Family conference with the patient's healthcare surrogate Dahiana Mayorga who is also his cousin and patient`s other cousin Stephanie. Updated them on patient`s current medical status. Discussed patient`s trajectory of decline in the past months, hospitalizations and his multiple comorbidities. Discussed complications that patient has faced during this hospitalization and treatment that has been rendered including reintubation. Discussed treatment plan going forward and that family is now faced with decision of proceeding with tracheostomy and PEG tube placement if goals remain aggressive. Explained further that given patient`s medical condition inclusive of history of lung cancer, COPD and tobacco use, his respiratory issues will continue to arise despite proposed intervention of tracheostomy placement. Also discussed most likely difficulty in ventilator weaning which may end up leading into terminal superintendent care placement for further management and care for patient. Dahiana would not want patient to have a tracheostomy and PEG tube placed. Readdressed code status , discussed CPR limitations and benefits. Dahiana Mayorga HCS elected DNR. Dahiana expressed that they have discussed as family and have decided to proceed with compassionate withdrawal from life support though she still has difficulty in making that decision. She wishes patient would participate in that decision. Explained to Dahiana that patient may be following simple commands but he may not be able to comprehend all that is going on or have insight regarding his medical condition to make any informed decision. Explained in detail what compassionate withdrawal from life support entails. Introduced hospice philosophy and benefits. She would want hospice to be involved in patient`s care at time of withdrawal. Dahiana would like time to decide when to proceed with compassionate withdrawal from life support. She intends to be in [place] till Thursday09/25/17. Case discussed with Dr. Valdez and bedside RN Radha. Family/friend interactions Family conference with patient`s cousin Dahiana Mayorga ([facility]) and Stpehanie- another cousin. . Advance Directives Health Care Surrogate: Copy in medical record Advance Directive Specifics Date completed: [facility] -April 08, 2017 . Health Care Surrogate(s): HCS- (Long time friend-15 yrs) Kay Rizvi [phone]- (July 2017) Alternate [facility]- Cousin- Dahiana Mayorga [phone] (will serve as [facility]) . Significant change in goals: Patient made DNR today. Healthcare surrogate deciding to proceed with compassionate withdrawal from care sometime this week. . Objective Vital Signs Date Time Temp Pulse Resp B/P (MAP) Pulse Ox O2 Delivery O2 Flow Rate FiO2 09/21/17 15:06 97 35 09/21/17 14:00 65 09/21/17 12:00 68 09/21/17 12:00 35 09/21/17 12:00 98.3 68 19 171/85 (113) 99 09/21/17 11:51 98 35 09/21/17 10:00 56 09/21/17 08:00 35 09/21/17 08:00 63 09/21/17 08:00 97.7 63 17 150/75 (100) 98 09/21/17 07:36 99 35 09/21/17 07:00 97 Mechanical Ventilator 35 09/21/17 06:00 77 09/21/17 04:06 99 35 09/21/17 04:00 35 09/21/17 04:00 98.5 54 24 141/68 (92) 99 09/21/17 04:00 54 09/21/17 02:00 47 09/21/17 00:27 98 35 09/21/17 00:00 98.3 52 26 137/71 (93) 09/21/17 00:00 35 09/21/17 00:00 52 09/20/17 22:00 50 09/20/17 20:28 99 35 09/20/17 20:00 35 09/20/17 20:00 98.3 53 32 127/65 (85) 98 09/20/17 20:00 53 09/20/17 19:00 98 Mechanical Ventilator 35 09/20/17 18:00 53 Intake & Output 09/21/17 09/21/17 07:00 19:00 Intake Total 3283 ml Output Total 400 ml Balance 2883 ml IV Total 2400 ml Tube Feeding 383 ml Other 500 ml Output Urine Total 400 ml # Bowel Movements 0 Physical Exam CONSTITUTIONAL/GENERAL: This is a chronically ill patient,on a mechanical ventilator and sedated TUBES/LINES/DRAINS: ET tube, NGT, PIV x2 LUE, SCDs, Dockery catheter SKIN: No jaundice, rashes, or lesions. Pale. Ecchymosis to BUE. Skin tears to bilateral upper extremities. EYES: PERRLA. No scleral icterus. No injection or drainage. Fundi not examined. ENT: Nose without bleeding or purulent drainage. NGT with TF infusing. Moist oral mucosa. CARDIOVASCULAR: Regular rate and rhythm no murmur. no JVD. Palpable pulses to all 4 extremities. RESPIRATORY/CHEST: Symmetric, unlabored respirations on mechanical vent. Diminished breath sounds. No wheezing, rhonchi GASTROINTESTINAL: Abdomen soft, non-tender, nondistended. NGT with tube feeds infusing at 50 mL/hour. Positive bowel sounds X4 quadrants GENITOURINARY: Without palpable bladder distension. Dockery catheter in place. MUSCULOSKELETAL: Extremities without clubbing, cyanosis.2+ Edema to BUE. No mottling or clubbing. NEUROLOGICAL: Sedated on mechanical vent. On Fentanyl and propofol infusion. Eyes open, tracking with his eyes, following simple commands but very weak. Purposeful movement with LUE, trying to pull out ETT. Nodding head for yes and shaking head for no intermittently. PSYCHIATRIC: no apparent anxiety . Diagnostic Tests Laboratory Laboratory Tests Test 09/19/17 04:40 09/20/17 04:08 09/21/17 06:43 White Blood Count 11.5 TH/MM3 (4.0-11.0) 9.5 TH/MM3 (4.0-11.0) 12.2 TH/MM3 (4.0-11.0) Red Blood Count 3.35 MIL/MM3 (4.50-5.90) 3.22 MIL/MM3 (4.50-5.90) 3.08 MIL/MM3 (4.50-5.90) Hemoglobin 10.2 GM/DL (13.0-17.0) 9.8 GM/DL (13.0-17.0) 9.4 GM/DL (13.0-17.0) Hematocrit 31.1 % (39.0-51.0) 29.9 % (39.0-51.0) 28.9 % (39.0-51.0) Mean Corpuscular Volume 92.8 FL (80.0-100.0) 92.8 FL (80.0-100.0) 93.9 FL (80.0-100.0) Mean Corpuscular Hemoglobin 30.5 PG (27.0-34.0) 30.6 PG (27.0-34.0) 30.4 PG (27.0-34.0) Mean Corpuscular Hemoglobin Concent 32.9 % (32.0-36.0) 32.9 % (32.0-36.0) 32.4 % (32.0-36.0) Red Cell Distribution Width 20.1 % (11.6-17.2) 20.0 % (11.6-17.2) 19.8 % (11.6-17.2) Platelet Count 155 TH/MM3 (150-450) 141 TH/MM3 (150-450) 149 TH/MM3 (150-450) Mean Platelet Volume 8.6 FL (7.0-11.0) 8.9 FL (7.0-11.0) 9.1 FL (7.0-11.0) Neutrophils (%) (Auto) 97.2 % (16.0-70.0) 96.0 % (16.0-70.0) 96.4 % (16.0-70.0) Lymphocytes (%) (Auto) 0.8 % (9.0-44.0) 0.7 % (9.0-44.0) 0.7 % (9.0-44.0) Monocytes (%) (Auto) 1.5 % (0.0-8.0) 2.7 % (0.0-8.0) 2.6 % (0.0-8.0) Eosinophils (%) (Auto) 0.1 % (0.0-4.0) 0.0 % (0.0-4.0) 0.0 % (0.0-4.0) Basophils (%) (Auto) 0.4 % (0.0-2.0) 0.6 % (0.0-2.0) 0.3 % (0.0-2.0) Neutrophils # (Auto) 11.2 TH/MM3 (1.8-7.7) 9.2 TH/MM3 (1.8-7.7) 11.8 TH/MM3 (1.8-7.7) Lymphocytes # (Auto) 0.1 TH/MM3 (1.0-4.8) 0.1 TH/MM3 (1.0-4.8) 0.1 TH/MM3 (1.0-4.8) Monocytes # (Auto) 0.2 TH/MM3 (0-0.9) 0.3 TH/MM3 (0-0.9) 0.3 TH/MM3 (0-0.9) Eosinophils # (Auto) 0.0 TH/MM3 (0-0.4) 0.0 TH/MM3 (0-0.4) 0.0 TH/MM3 (0-0.4) Basophils # (Auto) 0.0 TH/MM3 (0-0.2) 0.1 TH/MM3 (0-0.2) 0.0 TH/MM3 (0-0.2) CBC Comment DIFF FINAL DIFF FINAL DIFF FINAL Differential Comment Blood Urea Nitrogen 41 MG/DL (7-18) 37 MG/DL (7-18) 36 MG/DL (7-18) Creatinine 0.99 MG/DL (0.60-1.30) 0.82 MG/DL (0.60-1.30) 0.70 MG/DL (0.60-1.30) Random Glucose 175 MG/DL (74-106) 130 MG/DL (74-106) 126 MG/DL (74-106) Calcium Level 8.7 MG/DL (8.5-10.1) 8.5 MG/DL (8.5-10.1) 7.8 MG/DL (8.5-10.1) Phosphorus Level 3.8 MG/DL (2.5-4.9) Magnesium Level 2.4 MG/DL (1.5-2.5) Sodium Level 146 MEQ/L (136-145) 146 MEQ/L (136-145) 146 MEQ/L (136-145) Potassium Level 4.0 MEQ/L (3.5-5.1) 3.5 MEQ/L (3.5-5.1) 4.2 MEQ/L (3.5-5.1) Chloride Level 110 MEQ/L (98-107) 108 MEQ/L (98-107) 113 MEQ/L (98-107) Carbon Dioxide Level 27.4 MEQ/L (21.0-32.0) 28.3 MEQ/L (21.0-32.0) 26.1 MEQ/L (21.0-32.0) Anion Gap 9 MEQ/L (5-15) 10 MEQ/L (5-15) 7 MEQ/L (5-15) Estimat Glomerular Filtration Rate 76 ML/MIN (>89) 95 ML/MIN (>89) 114 ML/MIN (>89) Result Diagram: 09/21/17 0643 09/21/17 0643 Imaging Last 72 hours Impressions Chest X-Ray 09/19/17 0000 Signed Impressions: Service Date/Time: Tuesday, September 19, 2017 03:34 - CONCLUSION: 1. Improved edema pattern with persistent perihilar consolidation on the left. Improved left effusion. David Jay MD Procedures 08/29/17-intubation 08/31/17-self extubation 08/31/17-reintubated 09/15/17-medically extubated 09/17/17-reintubated . Assessment and Plan Disease Oriented Problem List: (1) Acute respiratory failure with hypoxia and hypercarbia (2) Lung cancer (3) Atrial fibrillation with RVR (4) Lung consolidation (5) COPD (chronic obstructive pulmonary disease) Symptom Scale: (1) Shortness of breath 0-10 Scale: Unable to quantify Comment: Hx of lung cancer. CT angiography revealed multilobar consolidation and no evidence for pulmonary embolism, extensive coronary calcifications. . (2) Pain 0-10 Scale: Unable to quantify Comment: Risk for pain-from procedure (intubation), bedbound status. . (3) Debility 0-10 Scale: Unable to quantify Comment: Progressive . Pertinent Non-Medical Issues Psychosocial:Patient was born and raised in [place]. He left [place] at the age of 20. Patient moved to [place] in [place]. Patient has a 2 years college degree in [employer] technology. 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 Patient was and twice. He never had children. Spiritual:N jain affiliation Legal:Patient has a [facility] form signed and completed a Community DNR Ethical issues impacting care:None identified at this time . Important Contacts Alternate [facility]- Cousin- Dahiana Mayorga [phone] Friend-Nemo [phone] XXX [facility]- (Long time friend-15 yrs) Kay Rizvi [phone]- . Prognosis Mr Adasm is a 61 years old male with a past medical history significant of lung cancer s/p radiation, COPD, hypertension, coronary artery disease and tobacco use. Patient presented to the ER via EMS on 08/29/17 complaining of shortness of breath that had started the night before, generalized malaise and weakness. Clinical course complicated with atrial fibrillation with RVR, and acute hypoxic and hypercapnic respiratory failure. Given ongoing comorbidities , patient remains at high risk for further complications, deterioration and decline. . Code Status: No Code Plan Legal decision maker: Patient has been unable to participate in decision- making due to intubation, and even when medically extubated has not demonstrated insight or understanding to make informed decisions. Continue decision making using healthcare surrogate cousin Dahiana Mayorga. Goals: Patient is now a DNR. [facility] Dahiana does not want to proceed with tracheostomy and Peg tube placement. She feels that patient would not want that. She is deciding to proceed with compassionate withdrawal from life support sometime this week and would like hospice involved at time of withdrawal. CODE STATUS: No code- DNR SYMPTOMS: * Shortness of breath: Patient has history of lung cancer, COPD and tobacco use. Patient presented with shortness of breath. Intubated 08/29, self extubated 08/31, reintubated 08/31 secondary to respiratory failure. Solu-Medrol and duo nebs prn. Had not been tolerating CPAP for longer than a couple hours-- medically extubated 09/15. On and off of facemask-->> reintubated 2 AM 09/17. Patient continues to fail CPAP trials. Patient`s HCS does not want to proceed with tracheostomy or peg tube placement. Family leaning towards compassionate withdrawal from life support. * Pain: Patient is at risk for pain, bedbound, multiple intubation/extubation since admission. Currently bedbound. Patient is not showing any signs of pain. Patient is currently on Fentanyl infusion at 100mcg/hr. No further recommendations. * Debility: Progressive: Hx of lung cancer s/p radiation. Multiple hospitalizations. Physical therapy following recommending physical therapy at rehab. Remains very weak, now reintubated which will further limit rehabilitation potential. . Palliative care will continue to follow the patient during hospital course as condition evolves, to assist patient/decision-maker with understanding of their medical conditions, weighing benefits/burdens of treatment options, for clarification of goals of treatment. Additionally will assist with any symptoms of palliative concern Randa Tenorio September 21, 2017 17:33
[2017-09-22] VITALS (18 sets, daily range): BP systolic 136–185; BP diastolic 66–88; PULSE 54–87; RESP 16–18; TEMP 98–98.7; O2SAT 94–100
[2017-09-22] MEDS: CHLORHEXIDINE GLUCONATE 2 % 1 PACK (2 CLOTHS) TOP SCH (03:15)
[2017-09-22] MEDS: hydrALAZINE HCL 50 MG TAB PO SCH ×4 (03:15→21:00)
[2017-09-22] MEDS: fentaNYL DRIP 250 ML IV PRN ×2 (03:54→21:37)
[2017-09-22] MEDS: methylPREDNISolone SOD SUCC 40 MG/1 ML VIAL IV PUSH SCH ×3 (05:20→21:36)
[2017-09-22] MEDS: DILTIAZEM HCL 30 MG TAB PO SCH ×3 (05:20→17:27)
[2017-09-22] MEDS: ISOSORBIDE DINITRATE 10 MG TAB PO SCH ×3 (05:20→21:39)
[2017-09-22] MEDS: ARTIFICIAL TEARS OPTH SOLN 15 ML BTL EACH EYE SCH ×3 (05:21→21:40)
[2017-09-22] MEDS: FREE WATER G-TUBE SCH ×3 (05:21→21:40)
[2017-09-22] MEDS: METOCLOPRAMIDE HCL 10 MG/2 ML VIAL IV PUSH SCH ×3 (05:21→21:38)
[2017-09-22] MEDS: INSULIN NovoLIN REGULAR SUPPLEMENTAL SCALE SQ SCH ×3 (06:00→17:28)
[2017-09-22] MEDS: DOCUSATE SODIUM 50 MG/SENNA 8.6 MG TAB PO SCH ×2 (07:05→21:00)
[2017-09-22] MEDS: SODIUM CHLORIDE 0.9% FLUSH 10 ML FLUSH IVF PRN (07:18)
[2017-09-22] MEDS: METOPROLOL TARTRATE 50 MG TAB PO SCH ×2 (07:18→21:00)
[2017-09-22] MEDS: LANSOPRAZOLE SOLUTAB 30 MG TAB NG SCH (07:18)
[2017-09-22] MEDS: PRAVASTATIN SOD 10 MG TAB PO SCH (07:19)
[2017-09-22] MEDS: PANTOPRAZOLE SODIUM 40 MG VIAL IV PUSH SCH (07:19)
[2017-09-22] MEDS: HEPARIN SODIUM - SQ 10,000 UNITS/ML VIAL SQ SCH ×2 (07:19→21:37)
[2017-09-22] MEDS: LISINOPRIL 10 MG TAB PO SCH (07:19)
[2017-09-22] MEDS: CHLORHEXIDINE 0.12% (ORAL KIT) 15 ML CUP MT SCH ×4 (07:20→20:00)
[2017-09-22 07:24] LABS: AUTOMATED NEUTROPHIL # 12.1 TH/MM3 (1.8-7.7); BASOPHIL % 0.3 % (0.0-2.0); HEMATOCRIT 31.5 % (39.0-51.0); HEMOGLOBIN 10.4 GM/DL (13.0-17.0); LYMPHOCYTE # 0.1 TH/MM3 (1.0-4.8); MEAN CELL VOLUME 93.2 FL (80.0-100.0); MEAN CORPUSCULAR HEMOGLOBIN 30.9 PG (27.0-34.0); MEAN CORPUSCULAR HGB CONC 33.1 % (32.0-36.0); MEAN PLATELET VOLUME 8.7 FL (7.0-11.0); MONO % 2.5 % (0.0-8.0); MONOCYTE # 0.3 TH/MM3 (0-0.9); NEUT % 96.2 % (16.0-70.0); PLATELET COUNT 152 TH/MM3 (150-450); RED BLOOD COUNT 3.38 MIL/MM3 (4.50-5.90); RED CELL DISTRIBUTION WIDTH 20.3 % (11.6-17.2); WHITE BLOOD COUNT 12.6 TH/MM3 (4.0-11.0)
[2017-09-22 07:50] LABS: ALBUMIN 2.5 GM/DL (3.4-5.0); ALT (GPT) 23 U/L (12-78); AST (GOT) 17 U/L (15-37); BICARBONATE 27.2 MEQ/L (21.0-32.0); BLOOD UREA NITROGEN 36 MG/DL (7-18); CALCIUM 7.9 MG/DL (8.5-10.1); CHLORIDE 110 MEQ/L (98-107); CREATININE 0.68 MG/DL (0.60-1.30); GLOMERULAR FILTRATION RATE 118 ML/MIN (>89); GLUCOSE,RANDOM 176 MG/DL (74-106); SODIUM (NA) 146 MEQ/L (136-145)
[2017-09-22 07:58] LABS: ALKALINE PHOSPHATASE 97 U/L (45-117); TOTAL BILIRUBIN ADULT 0.4 MG/DL (0.2-1.0); TOTAL PROTEIN 5.7 GM/DL (6.4-8.2)
[2017-09-22 08:24] LABS: BANDS 5 % (0-6); MONOCYTES 1 % (0-8); MYELOCYTES 2 % (0-0); NEUTROPHIL # MANUAL DIFF 12.5 TH/MM3 (1.8-7.7); POLYS (SEG NEUTROPHILS) 92 % (16-70)
[2017-09-22] MEDS: PROPOFOL 1000 MG/100 ML INJ 100 ML IV PRN ×2 (08:31→18:31)
[2017-09-22] MEDS: LABETALOL HCL 100 MG/20 ML VIAL IV PUSH PRN ×3 (08:39→16:37)
--- NOTE | 2017-09-22 11:24 | HHI.HCPN ---
Reason for visit a. To assist with evaluation and management of symptoms including: Shortness of breath, pain, debility b. To assist medical decision maker(s) with: better understanding of current medical conditions; weighing benefits/burdens of medical treatment options; making medical treatment decisions. Subjective/Interval History Follow-up medically necessary for symptom management and further clarification of goals of care. Updated by bedside RN that patient had desaturated to the low 80s and his heart rate to the mid to high 50s. Patient`s cousin notified and she is not ready top deescalate care at this point. Patient placed on FIO2 100% briefly. Patient examined in his room, remains intubated, sedated and on a mechanical ventilator. Heart rate is currently mid to high 60s and O2 saturation is in the high 90s . No CPAP trial attempts today yet. Patient currently on Fentanyl infusion at 100mcg/hr and Propofol infusion at 20mvg/kg/ min. Patient has his eyes open, shook head for "no pain". He is able to follow simple commands. Laboratory work-up revealing WBC 12.6, hemoglobin 10.4, hematocrit 31.5, platelet count 152, sodium 146, potassium 4.3, BUN/creatinine 36/0.68, calcium 7.9, total protein 5.7, albumin 2.5. Telephone conversation with patient's healthcare surrogate/cousin Dahiana Mayorga who is currently in [place]. Updated here on current medical status. Dahiana has patient`s friends who would like to come and visit with patient and does not want to deescalate care at this time. She has requested that patient`s FIO2 be increased for now. She has not yet come up with a date that she would want patient to be compassionately withdrawn from life support. Family meeting with Dahiana Abbott ([facility]) and Stephanie patient`s cousin. Medical update provided by Dr. Ribera. Dahiana tentatively planning with proceeding with compassionate withdrawal from life support on 09/2317 or 09/24/2017. She is trying to accommodate some family members and patient`s friends to have a chance to visit with patient. Family requesting that patient be kept comfortable at this time. Dahiana agreeable to consulting hospice to assume comfort care only at time of withdrawal from life support. Exhibit B & C signed - on chart. Case discussed with and bedside RN Marcia. Family/friend interactions Brief telephone conversation with patient`s HCS/cousin Dahiana Mayorga. . Advance Directives Health Care Surrogate: Copy in medical record Advance Directive Specifics Date completed: [facility] -April 08, 2017 . Health Care Surrogate(s): HCS- (Long time friend-15 yrs) Kay Rizvi [phone]- (July 2017) Alternate HCS- Cousin- Dahiana Mayorga [phone] (will serve as HCS) . Objective Vital Signs Date Time Temp Pulse Resp B/P (MAP) Pulse Ox O2 Delivery O2 Flow Rate FiO2 09/22/17 10:00 63 09/22/17 08:00 35 09/22/17 08:00 98.5 80 16 185/88 (120) 97 09/22/17 08:00 80 09/22/17 07:54 98 35 09/22/17 07:00 97 Mechanical Ventilator 35 09/22/17 06:00 85 09/22/17 04:02 96 35 09/22/17 04:00 35 09/22/17 04:00 98.3 54 18 136/67 (90) 96 09/22/17 04:00 54 09/22/17 02:00 59 09/22/17 01:01 94 35 09/22/17 00:00 35 09/22/17 00:00 98.7 69 18 144/70 (94) 94 09/22/17 00:00 69 09/21/17 22:15 95 35 09/21/17 22:00 57 09/21/17 20:00 35 09/21/17 20:00 86 09/21/17 20:00 98.8 86 22 183/91 (121) 98 09/21/17 19:10 98 35 09/21/17 19:00 96 Mechanical Ventilator 35 09/21/17 18:00 84 09/21/17 16:00 35 09/21/17 16:00 75 09/21/17 16:00 99.5 75 13 167/84 (111) 98 09/21/17 15:06 97 35 09/21/17 14:00 65 09/21/17 12:00 68 09/21/17 12:00 35 09/21/17 12:00 98.3 68 19 171/85 (113) 99 09/21/17 11:51 98 35 Intake & Output 09/22/17 09/22/17 07:00 19:00 Intake Total 1458 ml Output Total 250 ml Balance 1208 ml IV Total 350 ml Tube Feeding 608 ml Other 500 ml Output Urine Total 250 ml # Bowel Movements 1 Physical Exam CONSTITUTIONAL/GENERAL: This is a chronically ill patient,on a mechanical ventilator and sedated TUBES/LINES/DRAINS: ET tube, NGT, PIV x2 LUE, SCDs, Dockery catheter SKIN: No jaundice, rashes, or lesions. Pale. Ecchymosis to BUE more so to . Skin tears to bilateral upper extremities. EYES: PERRLA. No scleral icterus. No injection or drainage. Fundi not examined. ENT: Nose without bleeding or purulent drainage. NGT with TF infusing. Moist oral mucosa. CARDIOVASCULAR: Regular rate and rhythm no murmur. no JVD. Palpable pulses to all 4 extremities. RESPIRATORY/CHEST: Symmetric, unlabored respirations. FIO2 35% currently. Diminished breath sounds. No wheezing, rhonchi GASTROINTESTINAL: Abdomen soft, non-tender, nondistended. NGT with tube feeds infusing at 50 mL/hour-Tolerating per RN. +BSx4 GENITOURINARY: Without palpable bladder distension. Dockery catheter in place. MUSCULOSKELETAL: Extremities without clubbing, cyanosis.2+ Edema to BUE. No mottling or clubbing. NEUROLOGICAL: Sedated on mechanical vent. On Fentanyl and propofol infusion. Eyes open, tracking with his eyes, following simple commands but very weak. Nodding head for yes and shaking head for no intermittently. PSYCHIATRIC: no apparent anxiety . Diagnostic Tests Laboratory Laboratory Tests Test 09/20/17 04:08 09/21/17 06:43 09/22/17 06:44 White Blood Count 9.5 TH/MM3 (4.0-11.0) 12.2 TH/MM3 (4.0-11.0) 12.6 TH/MM3 (4.0-11.0) Red Blood Count 3.22 MIL/MM3 (4.50-5.90) 3.08 MIL/MM3 (4.50-5.90) 3.38 MIL/MM3 (4.50-5.90) Hemoglobin 9.8 GM/DL (13.0-17.0) 9.4 GM/DL (13.0-17.0) 10.4 GM/DL (13.0-17.0) Hematocrit 29.9 % (39.0-51.0) 28.9 % (39.0-51.0) 31.5 % (39.0-51.0) Mean Corpuscular Volume 92.8 FL (80.0-100.0) 93.9 FL (80.0-100.0) 93.2 FL (80.0-100.0) Mean Corpuscular Hemoglobin 30.6 PG (27.0-34.0) 30.4 PG (27.0-34.0) 30.9 PG (27.0-34.0) Mean Corpuscular Hemoglobin Concent 32.9 % (32.0-36.0) 32.4 % (32.0-36.0) 33.1 % (32.0-36.0) Red Cell Distribution Width 20.0 % (11.6-17.2) 19.8 % (11.6-17.2) 20.3 % (11.6-17.2) Platelet Count 141 TH/MM3 (150-450) 149 TH/MM3 (150-450) 152 TH/MM3 (150-450) Mean Platelet Volume 8.9 FL (7.0-11.0) 9.1 FL (7.0-11.0) 8.7 FL (7.0-11.0) Neutrophils (%) (Auto) 96.0 % (16.0-70.0) 96.4 % (16.0-70.0) 96.2 % (16.0-70.0) Lymphocytes (%) (Auto) 0.7 % (9.0-44.0) 0.7 % (9.0-44.0) 1.0 % (9.0-44.0) Monocytes (%) (Auto) 2.7 % (0.0-8.0) 2.6 % (0.0-8.0) 2.5 % (0.0-8.0) Eosinophils (%) (Auto) 0.0 % (0.0-4.0) 0.0 % (0.0-4.0) 0.0 % (0.0-4.0) Basophils (%) (Auto) 0.6 % (0.0-2.0) 0.3 % (0.0-2.0) 0.3 % (0.0-2.0) Neutrophils # (Auto) 9.2 TH/MM3 (1.8-7.7) 11.8 TH/MM3 (1.8-7.7) 12.1 TH/MM3 (1.8-7.7) Lymphocytes # (Auto) 0.1 TH/MM3 (1.0-4.8) 0.1 TH/MM3 (1.0-4.8) 0.1 TH/MM3 (1.0-4.8) Monocytes # (Auto) 0.3 TH/MM3 (0-0.9) 0.3 TH/MM3 (0-0.9) 0.3 TH/MM3 (0-0.9) Eosinophils # (Auto) 0.0 TH/MM3 (0-0.4) 0.0 TH/MM3 (0-0.4) 0.0 TH/MM3 (0-0.4) Basophils # (Auto) 0.1 TH/MM3 (0-0.2) 0.0 TH/MM3 (0-0.2) 0.0 TH/MM3 (0-0.2) CBC Comment DIFF FINAL DIFF FINAL AUTO DIFF Differential Comment FINAL DIFF MANUAL Blood Urea Nitrogen 37 MG/DL (7-18) 36 MG/DL (7-18) 36 MG/DL (7-18) Creatinine 0.82 MG/DL (0.60-1.30) 0.70 MG/DL (0.60-1.30) 0.68 MG/DL (0.60-1.30) Random Glucose 130 MG/DL (74-106) 126 MG/DL (74-106) 176 MG/DL (74-106) Calcium Level 8.5 MG/DL (8.5-10.1) 7.8 MG/DL (8.5-10.1) 7.9 MG/DL (8.5-10.1) Sodium Level 146 MEQ/L (136-145) 146 MEQ/L (136-145) 146 MEQ/L (136-145) Potassium Level 3.5 MEQ/L (3.5-5.1) 4.2 MEQ/L (3.5-5.1) 4.3 MEQ/L (3.5-5.1) Chloride Level 108 MEQ/L (98-107) 113 MEQ/L (98-107) 110 MEQ/L (98-107) Carbon Dioxide Level 28.3 MEQ/L (21.0-32.0) 26.1 MEQ/L (21.0-32.0) 27.2 MEQ/L (21.0-32.0) Anion Gap 10 MEQ/L (5-15) 7 MEQ/L (5-15) 9 MEQ/L (5-15) Estimat Glomerular Filtration Rate 95 ML/MIN (>89) 114 ML/MIN (>89) 118 ML/MIN (>89) Procalcitonin 0.06 ng/mL (0.00-0.08) Differential Total Cells Counted 100 Neutrophils % (Manual) 92 % (16-70) Band Neutrophils % 5 % (0-6) Monocytes % 1 % (0-8) Neutrophils # (Manual) 12.5 TH/MM3 (1.8-7.7) Myelocytes 2 % (0-0) Platelet Estimate LOW (NORMAL) Platelet Morphology Comment NORMAL (NORMAL) Total Protein 5.7 GM/DL (6.4-8.2) Albumin 2.5 GM/DL (3.4-5.0) Alkaline Phosphatase 97 U/L (45-117) Aspartate Amino Transf (AST/SGOT) 17 U/L (15-37) Alanine Aminotransferase (ALT/SGPT) 23 U/L (12-78) Total Bilirubin 0.4 MG/DL (0.2-1.0) Result Diagram: 09/22/17 0644 09/22/17 0644 Procedures 08/29/17-intubation 08/31/17-self extubation 08/31/17-reintubated 09/15/17-medically extubated 09/17/17-reintubated . Assessment and Plan Disease Oriented Problem List: (1) Acute respiratory failure with hypoxia and hypercarbia (2) Lung cancer (3) Atrial fibrillation with RVR (4) Lung consolidation (5) COPD (chronic obstructive pulmonary disease) Symptom Scale: (1) Shortness of breath 0-10 Scale: Unable to quantify Comment: Hx of lung cancer. CT angiography revealed multilobar consolidation and no evidence for pulmonary embolism, extensive coronary calcifications. . (2) Pain 0-10 Scale: Unable to quantify Comment: Risk for pain-from procedure (intubation), bedbound status. . (3) Debility 0-10 Scale: Unable to quantify Comment: Progressive . Pertinent Non-Medical Issues Psychosocial:Patient was born and raised in [place]. He left [place] the age of 20. Patient moved to [place] in 1975. Patient has a 2 years college degree in [employer] technology. 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 Patient was and twice. He never had children. Spiritual:N sikh affiliation Legal:Patient has a [facility] form signed and completed a Community DNR Ethical issues impacting care:None identified at this time . Important Contacts Alternate [facility]- Cousin- Dahiana Mayorga [phone] Cousin- Stephanie Rodas -[phone] Friend-Nemo Lyon-[phone] XXX [facility]- (Long time friend-15 yrs) Kay Rizvi [phone]- . Prognosis Mr Adams is a 61 years old male with a past medical history significant of lung cancer s/p radiation, COPD, hypertension, coronary artery disease and tobacco use. Patient presented to the ER via EMS on 08/29/17 complaining of shortness of breath that had started the night before, generalized malaise and weakness. Clinical course complicated with atrial fibrillation with RVR, and acute hypoxic and hypercapnic respiratory failure. Given ongoing comorbidities , patient remains at high risk for further complications, deterioration and decline. . Code Status: No Code Plan Legal decision maker: Patient has been unable to participate in decision- making due to intubation, and even when medically extubated has not demonstrated insight or understanding to make informed decisions. Continue decision making using healthcare surrogate cousin Dahiana Mukesh. Goals: Patient is a DNR. HCS Dahiana does not want to proceed with tracheostomy and Peg tube placement. Dahiana tentatively planning with proceeding with compassionate withdrawal from life support on 09/2317 or 2017. She is trying to accommodate some family members and patient`s friends to have a chance to visit with patient. Dahiana agreeable to consulting hospice to assume comfort care only at time of withdrawal from life support. Exhibit B & C signed- on chart. CODE STATUS: No code- DNR SYMPTOMS: * Shortness of breath: Patient has history of lung cancer, COPD and tobacco use. Patient presented with shortness of breath. Intubated 08/29, self extubated 08/31, reintubated 08/31 secondary to respiratory failure. Solu-Medrol and duo nebs prn. Had not been tolerating CPAP for longer than a couple hours-- medically extubated 09/15. On and off of facemask-->> reintubated 2 AM 09/17. Patient`s HCS does not want to proceed with tracheostomy or peg tube placement. Tentative compassionate withdrawal from life support on 09/23/17 or 09/24/17. * Pain: Patient is at risk for pain, bedbound, multiple intubation/extubation since admission. Currently bedbound. Patient is not showing any signs of pain. Patient is currently on Fentanyl infusion at 100mcg/hr. Family requesting that patient be kept comfortable. No further recommendations. * Debility: Progressive: Hx of lung cancer s/p radiation. Multiple hospitalizations. Physical therapy following recommending physical therapy at rehab. Remains very weak, now reintubated which will further limit rehabilitation potential. . Palliative care will continue to follow the patient during hospital course as condition evolves, to assist patient/decision-maker with understanding of their medical conditions, weighing benefits/burdens of treatment options, for clarification of goals of treatment. Additionally will assist with any symptoms of palliative concern Attestation To help prompt me to consider important information that might be impacting today's encounter and assessment, information from prior notes written by myself or my colleagues may have been "brought forward" into today's note. My signature on this note, however, is an attestation that I personally performed the exam, history, and/or decision-making noted today, and, unless otherwise indicated, the interactions with patient, family, and staff as well as the review of records all occurred today. I also attest that the listed assessment and stated plan reflect my best clinical judgment today based on the combination of historical information, prior notes, and today's exam/ interactions. When time spent is documented, it refers only to time spent today by the signer, or if indicated, combined time spent today by collaborating physician/nurse practitioner. Randa Tenorio September 22, 2017 11:24
--- NOTE | 2017-09-22 18:25 | HHI.CCPN ---
Subjective Remarks/Hospital Course 08/29: This is a 61-year-old male with a history of lung cancer undergoing current chemotherapy and radiation who was recently admitted on 07/19 for aspiration pneumonia. During that admission he did have episodes of paroxysmal atrial fibrillation and had an echo from 04/2017 showing an EF of 50-55%. He represents today to the emergency department with acute shortness of breath since last night. Per the ER documentation, he denies any coughing, fever, chills, or other recent symptoms or changes other than the new dyspnea. In the emergency department he was found to be in A. fib with RVR. This initially converted to sinus rhythm 1 after diltiazem 20 mg IV bolus, but then very quickly went back into atrial for ablation with rapid ventricular response. 2 doses of adenosine were not able to convert it. The patient was loaded with amiodarone and infusion was started. After this, the patient become acutely hypoxemic requiring emergent intubation. Please refer to the emergency room physician documentation for additional details regarding the decompensation. When I came to evaluate patient, the patient was recently intubated, sedated. No additional information is available from the patient due to his clinical condition. Review of systems is unobtainable. Critical care medicine is consulted to evaluate manage his acute hypoxic respiratory failure along with his acute supraventricular tachycardia. 08/30: Patient remains intubated and sedated. FiO2 down to 0.5. Patient continues to be on amiodarone infusion and heparin drip. Sedation achieved with propofol and fentanyl. Patient remains hypothermic requiring Gracia hugger, urine output 350 mL's documented since admission. 08/31: No events over the night. Patient remains intubated and sedated. Hemoglobin more stable posttransfusion. Hypothermia resolved, T-max of 100.3. Urine output remains low, 635 mL's over the last 24 hours. Oxygenation is improved. No family present at bedside. Patient remains in sinus rhythm, on amiodarone infusion. No report of melena, hematochezia or coffee-ground aspirate from NG tube. Morning chest x-ray reviewed, worsening infiltrates over the right thorax, unchanged consolidation over the left. 09/01: Afebrile. Patient was extubated yesterday afternoon and emergently intubated 1030 last night secondary to hypoxemic respiratory failure. This x- ray pending this a.m.. The patient also was noted to have severe metabolic acidosis and sodium bicarbonate infusion was initiated. Patient noted to have Pseudomonas, and placed on Zosyn. Patient continues to have leukocytosis with worsening pneumonia ID has been consulted appreciate recommendations. Patient previously DNR palliative has been consulted up on hypoxemic respiratory failure patient was noted to request intubation at that time. Palliative care consult pending. Patient continues on amiodarone infusion now in sinus rhythm. Amiodarone infusion discontinued the patient continued on metoprolol and Cardizem home medications. Hemoglobin appears stable status post 2 units transfusion 48 hours ago. Will do serial H&H's aspirin reinitiated will hold Plavix for now, and continue to follow. Subcu heparin initiated. 09/02: Afebrile. Hemoglobin stable for the last 24 hours. Plan to restart tube feeds this a.m.. Metabolic acidosis resolved, patient's sodium bicarbonate discontinued. Patient requiring increasing FiO2 requirements during the night , now at 100% ABG pending. This am chest x-ray worsening. 09/03: Late entry note patient seen at 8:15 AM .afebrile. Chest x-ray continues to worsen. FiO2 requirement slightly decreased we will attempt CPAP trials today. 09/04: Afebrile. patient awake and following commands this a.m. Currently on CPAP trials. FiO2 weaned to 45% 09/05: Afebrile. Patient tolerating CPAP trials. She noted to have elevated blood glucose level secondary methylprednisolone. Chest x-ray now improving methylprednisolone taper initiated. Patient noted to still have episodes of hypertension Cardizem increased to 90 mg every 6 hours. 09/06: Patient currently in a flutter. Received adenosine 12 mg 1 which feels a flutter. Echocardiogram CPK and troponin ordered. TSH normal during this hospitalization. Potassium magnesium both normalized. Arousable and follows commands. 09/07: Patient is currently on PSV trial 20/8 ~35%. Patient oscillating on CODE STATUS. Tolerating tube feeds. Remains in normal sinus rhythm on amiodarone drip. 09/08: No events over the night. CPAP trial was attempted this morning patient went into A. fib with RVR after 15 minutes. Patient was switched back to full support, and converted to sinus rhythm. He continues to be on amiodarone infusion and heparin drip. He is lethargic but easily arousable able to follow some commands. FiO2 at 0.5 and PEEP at 8. T-max of 99. 09/09: No events over the night. T-max of 98.9. Patient remains intubated and sedated, on propofol and fentanyl. CPAP trial attempted this morning again and patient went into A. fib with RVR and hypoxia, therefore he was placed back on PRVC. No family present at bedside. Urine output of 2350 mL over the last 24 hours. He is +22 L since admission charting is correct. 09/10: No events over the night. This morning patient is in A. fib with RVR heart rate 150, hemodynamically stable. Patient had excellent response to diuresis, urine output greater than 4 L over the last 24 hours. T-max of 98.5. No family present at bedside. Morning chest x-ray reviewed. 09/11: Patient did well over the night. He remains in sinus rhythm on amiodarone infusion. Patient was started on Lasix drip yesterday with great urine output. Patient is negative approximately 2.5 L over the last 24 hours. Afebrile, with Tmax of 99.9. Oxygenation down to 40%. 09/12: No events over the night. Patient remains afebrile with a T-max of 99.4. Patient continues to be on Lasix drip with good urine output however he still on positive fluid balance over the last 24 hours. Lasix drip increased to 7.5 mg/h this morning. He continues to be on amiodarone infusion, and sedation with propofol and fentanyl. Patient is awake, weak, following some commands. Oxygenation not significantly improved, still requiring PEEP of 7 and 50% O2. Morning chest x-ray reviewed, ET tube is in good position, no significant change compared to 2 days ago. 09/13: No events over the night. Patient remains intubated and sedated. Afebrile over the night with a T-max of 98.9. -1.5 L over the last 24 hours. 09/14 Patient is intubated and sedated with Fentanyl drip. On Amio and Lasix drips. UOP: 4.1 L overnight. 09/15 Patient remains intubated and sedated. off Lasix drip. TF held for emesis/ high residuals. Patient was in Afib with RVR and restarted on Amio drip overnight. (Amio was held during day yesterday for bradycardia) 09/16 Patient was extubated yesterday on 10L simple mask. Awake. Afebrile. Remains on Amio drip. 09/17 Patient was reintubated during night sedated with Diprivan and fentanyl drips. Afebrile. 09/18 Patient remains intubated and sedated. TF held for high residuals. 09/19 Remains on mechanical ventilation. Will do SBT today. HAving BMs and tolerating tube feeds at 20 ml/hr, will advance. Surrogate struggling with decision making regarding goals of care. 09/20 Hypertensive and CPAP not tolerated, meds adjusted. . Tube feeds held due to residual 240, resuming. Afebrile. 09/21: Remains orally intubated on mechanical ventilation. Subjective: 09/22 Intubated on mechanical ventilation. Met with [facility] Dahiana. Discussed condition, prognosis. Multiple questions answered. Code status is DNR. She plans to transition to comfort later this week. Exhibits signed. Objective Vital Signs Date Time Temp Pulse Resp B/P (MAP) Pulse Ox O2 Delivery O2 Flow Rate FiO2 09/22/17 16:00 73 09/22/17 16:00 98.6 18 182/88 (119) 99 09/22/17 16:00 50 09/22/17 07:00 Mechanical Ventilator 09/19/17 19:00 Intake and Output 09/22/17 09/22/17 09/23/17 08:00 16:00 00:00 Intake Total 1358 ml 100 ml Output Total 250 ml Balance 1108 ml 100 ml Result Diagram: 09/22/17 0644 09/22/17 0644 Imaging Last Impressions Chest X-Ray 09/17/17 0000 Signed Impressions: Service Date/Time: September 03:03 - CONCLUSION: Worsening bilateral pulmonary infiltrates with small left effusion. Jessee Gilliam Jr., MD Abdomen X-Ray 09/15/17 0000 Signed Impressions: Service Date/Time: Friday, September 15, 2017 08:57 - CONCLUSION: Nonobstructive bowel gas pattern. Eloy Georges MD CT Angiography 08/29/17 1849 Signed Impressions: Service Date/Time: Saturday, August 29, 2017 19:36 - CONCLUSION: 1. Multilobar consolidation. 2. No evidence for pulmonary embolism. 3. Extensive coronary calcifications Pk Bae MD Objective Remarks Drips: Propofol 20 mg/kg/min Fentanyl 250 mg/h Jevity 50 mL/h GENERAL: Patient is 62 yo intubated and on sedation. SKIN: Warm and dry, well perfused. Ecchymosis right forearm. HEAD: Normocephalic. EYES: No scleral icterus. No injection or drainage. NECK: Supple, trachea midline. No JVD or lymphadenopathy. CARDIOVASCULAR: Regular rate and rhythm without murmurs, gallops, or rubs. RESPIRATORY: Orotracheally intubated. Coarse bilateral breath sounds. GASTROINTESTINAL: Abdomen soft, mildly distended and mildly tympanitic. No tenderness. MUSCULOSKELETAL: No cyanosis, or edema. Neuro: On sedation. Eyes closed, appears comfortable. A/P Problem List: (1) OBED (acute kidney injury) ICD Code: N17.9 - Acute kidney failure, unspecified (2) Severe protein-calorie malnutrition ICD Code: E43 - Unspecified severe protein-calorie malnutrition Status: Chronic (3) Shortness of breath ICD Code: R06.02 - Shortness of breath Status: Acute (4) Tobacco abuse ICD Code: Z72.0 - Tobacco use Status: Chronic (5) Paroxysmal A-fib ICD Code: I48.0 - Paroxysmal atrial fibrillation Status: Chronic (6) Atrial fibrillation with RVR ICD Code: I48.91 - Unspecified atrial fibrillation Status: Resolved (7) PNA (pneumonia) ICD Code: J18.9 - Pneumonia, unspecified organism (8) COPD (chronic obstructive pulmonary disease) ICD Code: J44.9 - Chronic obstructive pulmonary disease, unspecified (9) Lung cancer ICD Code: C34.90 - Malignant neoplasm of unspecified part of unspecified bronchus or lung (10) Debility ICD Code: R53.81 - Other malaise Status: Chronic (11) Pain ICD Code: R52 - Pain, unspecified Status: Chronic (12) Lung consolidation ICD Code: J18.1 - Lobar pneumonia, unspecified organism Status: Acute (13) Acute respiratory failure with hypoxia and hypercarbia ICD Code: J96.01 - Acute respiratory failure with hypoxia; J96.02 - Acute respiratory failure with hypercapnia Assessment and Plan 1. Acute respiratory failure-intubated 08/29, extubated 08/31 and required reintubation later that evening., extubated 09/15, reintubated 09/17 2. Pseudomonas pneumonia -patient remains afebrile 3. Acute COPD exacerbation 4. Lung cancer currently undergoing radiation therapy and chemotherapy prior to hospitalization 5. Atrial fibrillation with rapid ventricular response -multiple recurrences during the admission, currently in sinus rhythm 6. Elevated troponin - trending down 7. Acute blood loss anemia -r 8. OBED -resolved Plan Neuro: On Diprivan, Fentanyl infusion for sedation. Daily sedation vacation Pulm: Continue with vent support keep sats >92% Bronchodilators with Duoneb q4 hours, ICU vent bundle. Spontaneous breathing trial daily. Weaned Solumederol 40mg IV Q8 Patient would need trach/PEG for ongoing aggressive care. CV: Hypertensive. D/c cardizem in view of bradycardia. . Continue hydralazine 50 p.o. every 6, start lisinopril 10 mg p.o. daily, continue Isordil 10 p.o. every 8 hours, metoprolol 50 mg p.o. every 12 hours Labetalol as needed. Hydralazine IV shortage. Continue pravastatin 10 mg p.o. daily Echo 09/08/17 showed EF 40-45%, large left pleural effusion : Hypernatremia Monitor renal function, I/O's, electrolytes replacement per protocol Sodium is down trending. Continue free water 250ml Q8 monitor sodium level. GI: Contineu tube feeds via NGT( Jevity 1.is at goal rate 50ml/hr per nutrition recs. ) Continue Reglan 5mg IV Q8 KUB abdomen 09/15 : Non obstructive bowel gas pattern GI is following will need PEG/EGD/colonoscopy when stable but awaiting clarity regarding goals of care. ID Pseudomonas pneumonia Sputum cx 08/30, 09/11: Pseudomonas Blood culture, sputum cx from 09/17 are negative. Zosyn and Levaquin discontinued per ID. Monitoring off antibiotics Endo: Medium dose SSI q6 hours. Heme: Monitor CBC, GI prophylaxis with Protonix 40mg daily DVT prophylaxis with SCDs. Continue Heparin Sq, monitor H/H Full code Patient is not capacitated for medical decision making. His condition is end- stage and terminal. I met with healthcare surrogate, Dahiana. Was accompanied by Randa with palliative care. Multiple questions answered. Dahiana desires comfort measures. Would like to maintain supportive care on vent while awaiting family members to see her and other affairs are in order, but she states she plans for compassionate withdrawal later this week. Code Status DNR. Dahiana requested hospice consult. She will meet with hospice 09/23. Level 3 followup. Problem Qualifiers (1) PNA (pneumonia): Qualified Codes: J18.1 - Lobar pneumonia, unspecified organism Rosalinda Ribera MD September 22, 2017 18:25
[2017-09-23] VITALS (23 sets, daily range): BP systolic 139–192; BP diastolic 70–104; PULSE 59–94; RESP 16–19; TEMP 97.3–98.7; O2SAT 93–100
[2017-09-23] MEDS: hydrALAZINE HCL 50 MG TAB PO SCH ×4 (02:05→21:07)
[2017-09-23] MEDS: CHLORHEXIDINE GLUCONATE 2 % 1 PACK (2 CLOTHS) TOP SCH (04:00)
[2017-09-23] MEDS: methylPREDNISolone SOD SUCC 40 MG/1 ML VIAL IV PUSH SCH ×3 (05:00→21:08)
[2017-09-23] MEDS: FREE WATER G-TUBE SCH ×3 (06:00→21:09)
[2017-09-23] MEDS: INSULIN NovoLIN REGULAR SUPPLEMENTAL SCALE SQ SCH ×4 (06:00→18:00)
[2017-09-23] MEDS: ARTIFICIAL TEARS OPTH SOLN 15 ML BTL EACH EYE SCH ×3 (06:00→21:07)
[2017-09-23] MEDS: ISOSORBIDE DINITRATE 10 MG TAB PO SCH ×3 (06:00→21:07)
[2017-09-23] MEDS: METOCLOPRAMIDE HCL 10 MG/2 ML VIAL IV PUSH SCH ×3 (06:00→21:08)
[2017-09-23] MEDS: LABETALOL HCL 100 MG/20 ML VIAL IV PUSH PRN (06:15)
[2017-09-23] MEDS: DOCUSATE SODIUM 50 MG/SENNA 8.6 MG TAB PO SCH ×2 (09:00→21:00)
[2017-09-23] MEDS: LISINOPRIL 10 MG TAB PO SCH (10:18)
[2017-09-23] MEDS: METOPROLOL TARTRATE 50 MG TAB PO SCH ×2 (10:18→21:07)
[2017-09-23] MEDS: PRAVASTATIN SOD 10 MG TAB PO SCH (10:18)
[2017-09-23] MEDS: PANTOPRAZOLE SODIUM 40 MG VIAL IV PUSH SCH (10:19)
[2017-09-23] MEDS: LANSOPRAZOLE SOLUTAB 30 MG TAB NG SCH (10:19)
[2017-09-23] MEDS: HEPARIN SODIUM - SQ 10,000 UNITS/ML VIAL SQ SCH ×2 (10:19→21:09)
[2017-09-23] MEDS: CHLORHEXIDINE 0.12% (ORAL KIT) 15 ML CUP MT SCH ×4 (10:19→21:10)
[2017-09-23] MEDS: PROPOFOL 1000 MG/100 ML INJ 100 ML IV PRN (13:55)
--- NOTE | 2017-09-23 14:02 | HHI.HCPN ---
Reason for visit a. To assist with evaluation and management of symptoms including: Shortness of breath, pain, debility b. To assist medical decision maker(s) with: better understanding of current medical conditions; weighing benefits/burdens of medical treatment options; making medical treatment decisions. Subjective/Interval History Follow-up medically necessary for symptom management and further discussions regarding compassionate withdrawal from life support. Patient seen and examined in his room in the presence of his cousins Dahiana and Stephanie. Patient required increase in FIO2 overnight from 35% to 50%. Patient now on FIO2 45% with O2 saturation in the mid to high 90s. Patient his eyes open, follows simple commands with all 4 extremities. Sedation has been decreased, fentanyl infusion at 50mcg/hr and propofol infusion at 15 mcg/kg/min. Patient shook head for "no " when asked if he is in pain. Patient`s cousin Dahiana (HCS) met with hospice and signed consents. Family planning on compassionate withdrawal from life support tomorrow 09/24/17. They have a few of friends` patient and family who would like to see patient before withdrawing from life support. Family would like patient to be kept comfortable and not suffer after he is extubated. Reviewed compassionate withdrawal process with family. . Family/friend interactions Patient`s cousins Dahiana and Stephanie at bedside. . Advance Directives Health Care Surrogate: Copy in medical record Advance Directive Specifics Date completed: [facility] -April 08, 2017 . Health Care Surrogate(s): HCS- (Long time friend-15 yrs) Kay Rizvi [phone]- (July 2017) Alternate [facility]- Cousin- Dahiana Mayorga [phone] (will serve as HCS) . Significant change in goals: Plan for compassionate withdrawal from life support 09/24/17 and transitioning to comfort care only with hospice services. . Objective Vital Signs Date Time Temp Pulse Resp B/P (MAP) Pulse Ox O2 Delivery O2 Flow Rate FiO2 09/23/17 12:28 98 45 09/23/17 12:00 45 09/23/17 10:00 63 09/23/17 09:00 60 09/23/17 08:03 99 45 09/23/17 08:00 98.0 75 19 190/97 (128) 100 09/23/17 08:00 45 09/23/17 08:00 75 09/23/17 07:00 98 Mechanical Ventilator 50 09/23/17 07:00 62 09/23/17 04:11 96 45 09/23/17 04:00 50 09/23/17 04:00 97.3 66 18 140/72 (94) 97 09/23/17 01:12 99 45 09/23/17 00:00 97.6 94 16 192/104 (133) 99 09/23/17 00:00 50 09/22/17 23:00 50 09/22/17 22:58 100 45 09/22/17 20:02 96 50 09/22/17 20:00 98.0 65 18 136/66 (89) 97 09/22/17 20:00 50 09/22/17 19:00 99 Mechanical Ventilator 50 09/22/17 18:00 87 09/22/17 16:00 73 09/22/17 16:00 98.6 73 18 182/88 (119) 99 09/22/17 16:00 50 09/22/17 15:58 99 50 09/22/17 14:00 58 Intake & Output 09/23/17 09/23/17 07:00 19:00 Intake Total 1422 ml Output Total 700 ml Balance 722 ml IV Total 333 ml Tube Feeding 589 ml Other 500 ml Output Urine Total 700 ml # Bowel Movements 0 Physical Exam CONSTITUTIONAL/GENERAL: This is a chronically ill patient,on a mechanical ventilator in no acute distress TUBES/LINES/DRAINS: ET tube, NGT, PIV x2 LUE, SCDs, Dockery catheter SKIN: No jaundice, rashes, or lesions. Pale. Ecchymosis to BUE. Skin tears to BUE EYES: PERRLA. No scleral icterus. No injection or drainage. Fundi not examined. ENT: Nose without bleeding or purulent drainage. NGT with TF infusing. Moist oral mucosa. CARDIOVASCULAR: Regular rate and rhythm no murmur. no JVD. Palpable pulses to all 4 extremities. RESPIRATORY/CHEST: RR 18 unlabored. FIO2 45% currently. Clear and diminished breath sounds. No wheezing GASTROINTESTINAL: Abdomen soft, non-tender, nondistended. NGT, +BSx4 GENITOURINARY: Without palpable bladder distension. Dockery catheter in place. MUSCULOSKELETAL: Extremities without clubbing, cyanosis.2+ Edema to BUE. No mottling or clubbing. NEUROLOGICAL:On sedation but awake. Follows commands with all 4 extremities. PSYCHIATRIC: no apparent anxiety, agitation . Diagnostic Tests Laboratory Laboratory Tests Test 09/21/17 06:43 09/22/17 06:44 White Blood Count 12.2 TH/MM3 (4.0-11.0) 12.6 TH/MM3 (4.0-11.0) Red Blood Count 3.08 MIL/MM3 (4.50-5.90) 3.38 MIL/MM3 (4.50-5.90) Hemoglobin 9.4 GM/DL (13.0-17.0) 10.4 GM/DL (13.0-17.0) Hematocrit 28.9 % (39.0-51.0) 31.5 % (39.0-51.0) Mean Corpuscular Volume 93.9 FL (80.0-100.0) 93.2 FL (80.0-100.0) Mean Corpuscular Hemoglobin 30.4 PG (27.0-34.0) 30.9 PG (27.0-34.0) Mean Corpuscular Hemoglobin Concent 32.4 % (32.0-36.0) 33.1 % (32.0-36.0) Red Cell Distribution Width 19.8 % (11.6-17.2) 20.3 % (11.6-17.2) Platelet Count 149 TH/MM3 (150-450) 152 TH/MM3 (150-450) Mean Platelet Volume 9.1 FL (7.0-11.0) 8.7 FL (7.0-11.0) Neutrophils (%) (Auto) 96.4 % (16.0-70.0) 96.2 % (16.0-70.0) Lymphocytes (%) (Auto) 0.7 % (9.0-44.0) 1.0 % (9.0-44.0) Monocytes (%) (Auto) 2.6 % (0.0-8.0) 2.5 % (0.0-8.0) Eosinophils (%) (Auto) 0.0 % (0.0-4.0) 0.0 % (0.0-4.0) Basophils (%) (Auto) 0.3 % (0.0-2.0) 0.3 % (0.0-2.0) Neutrophils # (Auto) 11.8 TH/MM3 (1.8-7.7) 12.1 TH/MM3 (1.8-7.7) Lymphocytes # (Auto) 0.1 TH/MM3 (1.0-4.8) 0.1 TH/MM3 (1.0-4.8) Monocytes # (Auto) 0.3 TH/MM3 (0-0.9) 0.3 TH/MM3 (0-0.9) Eosinophils # (Auto) 0.0 TH/MM3 (0-0.4) 0.0 TH/MM3 (0-0.4) Basophils # (Auto) 0.0 TH/MM3 (0-0.2) 0.0 TH/MM3 (0-0.2) CBC Comment DIFF FINAL AUTO DIFF Differential Comment FINAL DIFF MANUAL Blood Urea Nitrogen 36 MG/DL (7-18) 36 MG/DL (7-18) Creatinine 0.70 MG/DL (0.60-1.30) 0.68 MG/DL (0.60-1.30) Random Glucose 126 MG/DL (74-106) 176 MG/DL (74-106) Calcium Level 7.8 MG/DL (8.5-10.1) 7.9 MG/DL (8.5-10.1) Sodium Level 146 MEQ/L (136-145) 146 MEQ/L (136-145) Potassium Level 4.2 MEQ/L (3.5-5.1) 4.3 MEQ/L (3.5-5.1) Chloride Level 113 MEQ/L (98-107) 110 MEQ/L (98-107) Carbon Dioxide Level 26.1 MEQ/L (21.0-32.0) 27.2 MEQ/L (21.0-32.0) Anion Gap 7 MEQ/L (5-15) 9 MEQ/L (5-15) Estimat Glomerular Filtration Rate 114 ML/MIN (>89) 118 ML/MIN (>89) Procalcitonin 0.06 ng/mL (0.00-0.08) Differential Total Cells Counted 100 Neutrophils % (Manual) 92 % (16-70) Band Neutrophils % 5 % (0-6) Monocytes % 1 % (0-8) Neutrophils # (Manual) 12.5 TH/MM3 (1.8-7.7) Myelocytes 2 % (0-0) Platelet Estimate LOW (NORMAL) Platelet Morphology Comment NORMAL (NORMAL) Total Protein 5.7 GM/DL (6.4-8.2) Albumin 2.5 GM/DL (3.4-5.0) Alkaline Phosphatase 97 U/L (45-117) Aspartate Amino Transf (AST/SGOT) 17 U/L (15-37) Alanine Aminotransferase (ALT/SGPT) 23 U/L (12-78) Total Bilirubin 0.4 MG/DL (0.2-1.0) Result Diagram: 09/22/1744 09/22/17 0644 Procedures 08/29/17-intubation 08/31/17-self extubation 08/31/17-reintubated 09/15/17-medically extubated 09/17/17-reintubated . Assessment and Plan Disease Oriented Problem List: (1) Acute respiratory failure with hypoxia and hypercarbia (2) Lung cancer (3) Atrial fibrillation with RVR (4) Lung consolidation (5) COPD (chronic obstructive pulmonary disease) Symptom Scale: (1) Shortness of breath 0-10 Scale: Unable to quantify Comment: Hx of lung cancer. CT angiography revealed multilobar consolidation and no evidence for pulmonary embolism, extensive coronary calcifications. . (2) Pain 0-10 Scale: Unable to quantify Comment: Risk for pain-from procedure (intubation), bedbound status. . (3) Debility 0-10 Scale: Unable to quantify Comment: Progressive . Pertinent Non-Medical Issues Psychosocial:Patient was born and raised in [place]. He left [place] at the age of 20. Patient moved to [place] in [place]. Patient has a 2 years college degree in [employer]. 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 Patient was and twice. He never had children. Spiritual:N uatsdin affiliation Legal:Patient has a [facility] form signed and completed a Community DNR Ethical issues impacting care:None identified at this time . Important Contacts Alternate [facility]- Cousin- Dahiana Mukesh [phone] Cousin- Stephanie Rodas [phone] Friend-Nemo Lyon-[phone] XXX HCS- (Long time friend-15 yrs) Kay Rizvi [phone]- . Prognosis Mr Adams is a 61 years old male with a past medical history significant of lung cancer s/p radiation, COPD, hypertension, coronary artery disease and tobacco use. Patient presented to the ER via EMS on 08/29/17 complaining of shortness of breath that had started the night before, generalized malaise and weakness. Clinical course complicated with atrial fibrillation with RVR, and acute hypoxic and hypercapnic respiratory failure. Given ongoing comorbidities , patient remains at high risk for further complications, deterioration and decline. . Code Status: No Code Plan Legal decision maker: Patient has been unable to participate in decision- making due to intubation, and even when medically extubated has not demonstrated insight or understanding to make informed decisions. Continue decision making using healthcare surrogate cousin Dahiana Mayorga. Goals: Patient is a DNR. Family planning on compassionate withdrawal from life support tomorrow 09/24/17. Family would like patient to be kept comfortable and not suffer after he is extubated. Reviewed compassionate withdrawal process with family.Patient`s cousin Dahiana ([facility]) met with hospice and signed consents. Exhibit B & C signed- on chart. CODE STATUS: No code- DNR SYMPTOMS: * Shortness of breath: Patient has history of lung cancer, COPD and tobacco use. Patient presented with shortness of breath. Intubated 08/29, self extubated 08/31, reintubated 08/31 secondary to respiratory failure. Solu-Medrol and duo nebs prn. Multiple re-intubations. Patient`s [facility] planning on proceeding with compassionate withdrawal from life support on 09/24/17. * Pain: Patient is at risk for pain, bedbound, multiple intubation/extubation since admission. Currently bedbound. No signs of pain at this time. Fentanyl infusion at 50mcg/hr. Family requesting that patient be kept comfortable at time of compassionate withdrawal from life support. No further recommendations. * Debility: Progressive: Hx of lung cancer s/p radiation. Multiple hospitalizations. Physical therapy following recommending physical therapy at rehab. Remains very weak, now reintubated which will further limit rehabilitation potential. . Palliative care will continue to follow the patient during hospital course as condition evolves, to assist patient/decision-maker with understanding of their medical conditions, weighing benefits/burdens of treatment options, for clarification of goals of treatment. Additionally will assist with any symptoms of palliative concern Attestation To help prompt me to consider important information that might be impacting today's encounter and assessment, information from prior notes written by myself or my colleagues may have been "brought forward" into today's note. My signature on this note, however, is an attestation that I personally performed the exam, history, and/or decision-making noted today, and, unless otherwise indicated, the interactions with patient, family, and staff as well as the review of records all occurred today. I also attest that the listed assessment and stated plan reflect my best clinical judgment today based on the combination of historical information, prior notes, and today's exam/ interactions. When time spent is documented, it refers only to time spent today by the signer, or if indicated, combined time spent today by collaborating physician/nurse practitioner. Randa Tenorio September 23, 2017 14:02
--- NOTE | 2017-09-23 14:54 | HHI.CCPN ---
Subjective Remarks/Hospital Course 08/29: This is a 61-year-old male with a history of lung cancer undergoing current chemotherapy and radiation who was recently admitted on 07/19 for aspiration pneumonia. During that admission he did have episodes of paroxysmal atrial fibrillation and had an echo from 04/2017 showing an EF of 50-55%. He represents today to the emergency department with acute shortness of breath since last night. Per the ER documentation, he denies any coughing, fever, chills, or other recent symptoms or changes other than the new dyspnea. In the emergency department he was found to be in A. fib with RVR. This initially converted to sinus rhythm 1 after diltiazem 20 mg IV bolus, but then very quickly went back into atrial for ablation with rapid ventricular response. 2 doses of adenosine were not able to convert it. The patient was loaded with amiodarone and infusion was started. After this, the patient become acutely hypoxemic requiring emergent intubation. Please refer to the emergency room physician documentation for additional details regarding the decompensation. When I came to evaluate patient, the patient was recently intubated, sedated. No additional information is available from the patient due to his clinical condition. Review of systems is unobtainable. Critical care medicine is consulted to evaluate manage his acute hypoxic respiratory failure along with his acute supraventricular tachycardia. 08/30: Patient remains intubated and sedated. FiO2 down to 0.5. Patient continues to be on amiodarone infusion and heparin drip. Sedation achieved with propofol and fentanyl. Patient remains hypothermic requiring Gracia hugger, urine output 350 mL's documented since admission. 08/31: No events over the night. Patient remains intubated and sedated. Hemoglobin more stable posttransfusion. Hypothermia resolved, T-max of 100.3. Urine output remains low, 635 mL's over the last 24 hours. Oxygenation is improved. No family present at bedside. Patient remains in sinus rhythm, on amiodarone infusion. No report of melena, hematochezia or coffee-ground aspirate from NG tube. Morning chest x-ray reviewed, worsening infiltrates over the right thorax, unchanged consolidation over the left. 09/01: Afebrile. Patient was extubated yesterday afternoon and emergently intubated 1030 last night secondary to hypoxemic respiratory failure. This x- ray pending this a.m.. The patient also was noted to have severe metabolic acidosis and sodium bicarbonate infusion was initiated. Patient noted to have Pseudomonas, and placed on Zosyn. Patient continues to have leukocytosis with worsening pneumonia ID has been consulted appreciate recommendations. Patient previously DNR palliative has been consulted up on hypoxemic respiratory failure patient was noted to request intubation at that time. Palliative care consult pending. Patient continues on amiodarone infusion now in sinus rhythm. Amiodarone infusion discontinued the patient continued on metoprolol and Cardizem home medications. Hemoglobin appears stable status post 2 units transfusion 48 hours ago. Will do serial H&H's aspirin reinitiated will hold Plavix for now, and continue to follow. Subcu heparin initiated. 09/02: Afebrile. Hemoglobin stable for the last 24 hours. Plan to restart tube feeds this a.m.. Metabolic acidosis resolved, patient's sodium bicarbonate discontinued. Patient requiring increasing FiO2 requirements during the night , now at 100% ABG pending. This am chest x-ray worsening. 09/03: Late entry note patient seen at 8:15 AM .afebrile. Chest x-ray continues to worsen. FiO2 requirement slightly decreased we will attempt CPAP trials today. 09/04: Afebrile. patient awake and following commands this a.m. Currently on CPAP trials. FiO2 weaned to 45% 09/05: Afebrile. Patient tolerating CPAP trials. She noted to have elevated blood glucose level secondary methylprednisolone. Chest x-ray now improving methylprednisolone taper initiated. Patient noted to still have episodes of hypertension Cardizem increased to 90 mg every 6 hours. 09/06: Patient currently in a flutter. Received adenosine 12 mg 1 which feels a flutter. Echocardiogram CPK and troponin ordered. TSH normal during this hospitalization. Potassium magnesium both normalized. Arousable and follows commands. 09/07: Patient is currently on PSV trial 20/8 ~35%. Patient oscillating on CODE STATUS. Tolerating tube feeds. Remains in normal sinus rhythm on amiodarone drip. 09/08: No events over the night. CPAP trial was attempted this morning patient went into A. fib with RVR after 15 minutes. Patient was switched back to full support, and converted to sinus rhythm. He continues to be on amiodarone infusion and heparin drip. He is lethargic but easily arousable able to follow some commands. FiO2 at 0.5 and PEEP at 8. T-max of 99. 09/09: No events over the night. T-max of 98.9. Patient remains intubated and sedated, on propofol and fentanyl. CPAP trial attempted this morning again and patient went into A. fib with RVR and hypoxia, therefore he was placed back on PRVC. No family present at bedside. Urine output of 2350 mL over the last 24 hours. He is +22 L since admission charting is correct. 09/10: No events over the night. This morning patient is in A. fib with RVR heart rate 150, hemodynamically stable. Patient had excellent response to diuresis, urine output greater than 4 L over the last 24 hours. T-max of 98.5. No family present at bedside. Morning chest x-ray reviewed. 09/11: Patient did well over the night. He remains in sinus rhythm on amiodarone infusion. Patient was started on Lasix drip yesterday with great urine output. Patient is negative approximately 2.5 L over the last 24 hours. Afebrile, with Tmax of 99.9. Oxygenation down to 40%. 09/12: No events over the night. Patient remains afebrile with a T-max of 99.4. Patient continues to be on Lasix drip with good urine output however he still on positive fluid balance over the last 24 hours. Lasix drip increased to 7.5 mg/h this morning. He continues to be on amiodarone infusion, and sedation with propofol and fentanyl. Patient is awake, weak, following some commands. Oxygenation not significantly improved, still requiring PEEP of 7 and 50% O2. Morning chest x-ray reviewed, ET tube is in good position, no significant change compared to 2 days ago. 09/13: No events over the night. Patient remains intubated and sedated. Afebrile over the night with a T-max of 98.9. -1.5 L over the last 24 hours. 09/14 Patient is intubated and sedated with Fentanyl drip. On Amio and Lasix drips. UOP: 4.1 L overnight. 09/15 Patient remains intubated and sedated. off Lasix drip. TF held for emesis/ high residuals. Patient was in Afib with RVR and restarted on Amio drip overnight. (Amio was held during day yesterday for bradycardia) 09/16 Patient was extubated yesterday on 10L simple mask. Awake. Afebrile. Remains on Amio drip. 09/17 Patient was reintubated during night sedated with Diprivan and fentanyl drips. Afebrile. 09/18 Patient remains intubated and sedated. TF held for high residuals. 09/19 Remains on mechanical ventilation. Will do SBT today. HAving BMs and tolerating tube feeds at 20 ml/hr, will advance. Surrogate struggling with decision making regarding goals of care. 09/20 Hypertensive and CPAP not tolerated, meds adjusted. . Tube feeds held due to residual 240, resuming. Afebrile. 09/21: Remains orally intubated on mechanical ventilation. Subjective: 09/22 Intubated on mechanical ventilation. Met with [facility] Dahiana. Discussed condition, prognosis. Multiple questions answered. Code status is DNR. She plans to transition to comfort later this week. Exhibits signed. 09/23: Remains sedated, orally intubated on mechanical ventilation. Family awaiting transition to comfort measures tomorrow. Objective Vital Signs Date Time Temp Pulse Resp B/P (MAP) Pulse Ox O2 Delivery O2 Flow Rate FiO2 09/23/17 14:38 100 45 09/23/17 12:00 98.5 59 18 169/76 (107) 09/23/17 07:00 Mechanical Ventilator 09/19/17 19:00 Intake and Output 09/23/17 09/23/17 09/24/17 08:00 16:00 00:00 Intake Total 1172 ml Output Total 700 ml Balance 472 ml Result Diagram: 09/22/17 0644 09/22/17 0644 Imaging Last Impressions Chest X-Ray 09/17/17 0000 Signed Impressions: Service Date/Time: September 03:03 - CONCLUSION: Worsening bilateral pulmonary infiltrates with small left effusion. Jessee Gilliam Jr., MD Abdomen X-Ray 09/15/17 0000 Signed Impressions: Service Date/Time: Friday, September 15, 2017 08:57 - CONCLUSION: Nonobstructive bowel gas pattern. Eloy Georges MD CT Angiography 08/29/17 [id number] Signed Impressions: Service Date/Time: Tuesday, August 29, 2017 19:36 - CONCLUSION: 1. Multilobar consolidation. 2. No evidence for pulmonary embolism. 3. Extensive coronary calcifications Pk Bae MD Objective Remarks Drips: Propofol 20 mg/kg/min Fentanyl 250 mg/h Jevity 50 mL/h GENERAL: Patient is 62 yo intubated and on sedation. SKIN: Warm and dry, well perfused. Ecchymosis right forearm. HEAD: Normocephalic. EYES: No scleral icterus. No injection or drainage. NECK: Supple, trachea midline. No JVD or lymphadenopathy. CARDIOVASCULAR: Regular rate and rhythm without murmurs, gallops, or rubs. RESPIRATORY: Orotracheally intubated. Coarse bilateral breath sounds. GASTROINTESTINAL: Abdomen soft, mildly distended and mildly tympanitic. No tenderness. MUSCULOSKELETAL: No cyanosis, or edema. Neuro: On sedation. Eyes closed, appears comfortable. A/P Problem List: (1) OBED (acute kidney injury) ICD Code: N17.9 - Acute kidney failure, unspecified (2) Severe protein-calorie malnutrition ICD Code: E43 - Unspecified severe protein-calorie malnutrition Status: Chronic (3) Shortness of breath ICD Code: R06.02 - Shortness of breath Status: Acute (4) Tobacco abuse ICD Code: Z72.0 - Tobacco use Status: Chronic (5) Paroxysmal A-fib ICD Code: I48.0 - Paroxysmal atrial fibrillation Status: Chronic (6) Atrial fibrillation with RVR ICD Code: I48.91 - Unspecified atrial fibrillation Status: Resolved (7) PNA (pneumonia) ICD Code: J18.9 - Pneumonia, unspecified organism (8) COPD (chronic obstructive pulmonary disease) ICD Code: J44.9 - Chronic obstructive pulmonary disease, unspecified (9) Lung cancer ICD Code: C34.90 - Malignant neoplasm of unspecified part of unspecified bronchus or lung (10) Debility ICD Code: R53.81 - Other malaise Status: Chronic (11) Pain ICD Code: R52 - Pain, unspecified Status: Chronic (12) Lung consolidation ICD Code: J18.1 - Lobar pneumonia, unspecified organism Status: Acute (13) Acute respiratory failure with hypoxia and hypercarbia ICD Code: J96.01 - Acute respiratory failure with hypoxia; J96.02 - Acute respiratory failure with hypercapnia Assessment and Plan 1. Acute respiratory failure-intubated 08/29, extubated 08/31 and required reintubation later that evening., extubated 09/15, reintubated 09/17 2. Pseudomonas pneumonia -patient remains afebrile 3. Acute COPD exacerbation 4. Lung cancer currently undergoing radiation therapy and chemotherapy prior to hospitalization 5. Atrial fibrillation with rapid ventricular response -multiple recurrences during the admission, currently in sinus rhythm 6. Elevated troponin - trending down 7. Acute blood loss anemia -r 8. OBED -resolved Plan Neuro: On Diprivan, Fentanyl infusion for sedation. Daily sedation vacation Pulm: Continue with vent support keep sats >92% Bronchodilators with Duoneb q4 hours, ICU vent bundle. Spontaneous breathing trial daily. Weaned Solumederol 40mg IV Q8 Patient would need trach/PEG for ongoing aggressive care. CV: Hypertensive. D/c cardizem in view of bradycardia. . Continue hydralazine 50 p.o. every 6, start lisinopril 10 mg p.o. daily, continue Isordil 10 p.o. every 8 hours, metoprolol 50 mg p.o. every 12 hours Labetalol as needed. Hydralazine IV shortage. Continue pravastatin 10 mg p.o. daily Echo 09/08/17 showed EF 40-45%, large left pleural effusion : Hypernatremia Monitor renal function, I/O's, electrolytes replacement per protocol Sodium is down trending. Continue free water 250ml Q8 monitor sodium level. GI: Contineu tube feeds via NGT( Jevity 1.is at goal rate 50ml/hr per nutrition recs. ) Continue Reglan 5mg IV Q8 KUB abdomen 09/15 : Non obstructive bowel gas pattern GI is following will need PEG/EGD/colonoscopy when stable but awaiting clarity regarding goals of care. ID Pseudomonas pneumonia Sputum cx 08/30, 09/11: Pseudomonas Blood culture, sputum cx from 09/17 are negative. Zosyn and Levaquin discontinued per ID. Monitoring off antibiotics Endo: Medium dose SSI q6 hours. Heme: Monitor CBC, GI prophylaxis with Protonix 40mg daily DVT prophylaxis with SCDs. Continue Heparin Sq, monitor H/H Full code Patient is not capacitated for medical decision making. His condition is end- stage and terminal. Dr. Ribera met with healthcare surrogate, Dahiana. Was accompanied by Randa with palliative care. Multiple questions answered. Dahiana desires comfort measures. Would like to maintain supportive care on vent while awaiting family members to see her and other affairs are in order, but she states she plans for compassionate withdrawal later this week. Code Status DNR. Dahiana requested hospice consult. She will meet with hospice 09/23. Level 3 followup. Problem Qualifiers (1) PNA (pneumonia): Qualified Codes: J18.1 - Lobar pneumonia, unspecified organism Samy Valdez MD September 23, 2017 14:54
[2017-09-24] VITALS (18 sets, daily range): BP systolic 138–168; BP diastolic 70–94; PULSE 60–108; RESP 8–30; TEMP 97.1–98.7; O2SAT 82–98
[2017-09-24] MEDS: fentaNYL DRIP 250 ML IV PRN ×2 (01:35→15:07)
[2017-09-24] MEDS: PROPOFOL 1000 MG/100 ML INJ 100 ML IV PRN (03:05)
[2017-09-24] MEDS: hydrALAZINE HCL 50 MG TAB PO SCH ×2 (03:05→09:47)
[2017-09-24] MEDS: CHLORHEXIDINE GLUCONATE 2 % 1 PACK (2 CLOTHS) TOP SCH (03:11)
[2017-09-24] MEDS: methylPREDNISolone SOD SUCC 40 MG/1 ML VIAL IV PUSH SCH ×3 (04:57→19:31)
[2017-09-24] MEDS: METOCLOPRAMIDE HCL 10 MG/2 ML VIAL IV PUSH SCH (04:57)
[2017-09-24] MEDS: ISOSORBIDE DINITRATE 10 MG TAB PO SCH (04:57)
[2017-09-24] MEDS: ARTIFICIAL TEARS OPTH SOLN 15 ML BTL EACH EYE SCH (04:57)
[2017-09-24] MEDS: LABETALOL HCL 100 MG/20 ML VIAL IV PUSH PRN ×2 (04:57→06:07)
[2017-09-24] MEDS: FREE WATER G-TUBE SCH (04:57)
[2017-09-24] MEDS: INSULIN NovoLIN REGULAR SUPPLEMENTAL SCALE SQ SCH ×3 (06:00→12:00)
[2017-09-24 06:32] LABS: HEMATOCRIT 34.5 % (39.0-51.0); HEMOGLOBIN 11.5 GM/DL (13.0-17.0); MEAN CELL VOLUME 92.4 FL (80.0-100.0); MEAN CORPUSCULAR HEMOGLOBIN 30.7 PG (27.0-34.0); MEAN CORPUSCULAR HGB CONC 33.2 % (32.0-36.0); MEAN PLATELET VOLUME 9.2 FL (7.0-11.0); PLATELET COUNT 108 TH/MM3 (150-450); RED BLOOD COUNT 3.74 MIL/MM3 (4.50-5.90); RED CELL DISTRIBUTION WIDTH 20.4 % (11.6-17.2)
[2017-09-24] MEDS: CHLORHEXIDINE 0.12% (ORAL KIT) 15 ML CUP MT SCH ×2 (08:00→09:48)
[2017-09-24] MEDS: DOCUSATE SODIUM 50 MG/SENNA 8.6 MG TAB PO SCH (09:00)
[2017-09-24] MEDS: PANTOPRAZOLE SODIUM 40 MG VIAL IV PUSH SCH (09:47)
[2017-09-24] MEDS: LISINOPRIL 10 MG TAB PO SCH (09:47)
[2017-09-24] MEDS: LANSOPRAZOLE SOLUTAB 30 MG TAB NG SCH (09:47)
[2017-09-24] MEDS: HEPARIN SODIUM - SQ 10,000 UNITS/ML VIAL SQ SCH (09:47)
[2017-09-24] MEDS: METOPROLOL TARTRATE 50 MG TAB PO SCH (09:47)
[2017-09-24] MEDS: PRAVASTATIN SOD 10 MG TAB PO SCH (09:47)
--- NOTE | 2017-09-24 11:12 | HHI.HCPN ---
Received call from hospice food photographer, oskar Dahiana has questions regarding patient's affairs after . Spoke with Dahiana via telephone and encouraged her to speak with an admitted attorneys or the specific facility (bank/paying bills/etc) regarding their policies on affairs without financial POA documentation. Provided her information on [facility] [employer] [facility] ( free legal service/advice) as she indicated the ability to pay for an admitted attorneys may be difficult. Answered her questions and concerns to the best of my ability. Provided contact information. Sade Gilliam [employer], [employer] September 24, 2017 11:12
--- NOTE | 2017-09-24 11:26 | HHI.HCPN ---
Reason for visit a. To assist with evaluation and management of symptoms including: Shortness of breath, anxiety. b. To assist medical decision maker(s) with: better understanding of current medical conditions; weighing benefits/burdens of medical treatment options; making medical treatment decisions. Subjective/Interval History Follow-up medically necessary for symptom management of compassionate withdrawal from life support. Mr. Adams has significan history of lung cancer, copd, hypertension, tobacco use, and CAD. Pt has respiratory failure, and clinical course is also complicated by atrial fibrillation. Despite life support and aggressive measure pt's FIO2 requirement has increased and patient has not improved; has had multiple reintubation. Patient open eyes, follow some commands, but at other times, just stares, unable to understands. Not following commands consistently. At times he looks uncomfortable and grimaces. Family at bedside, saw my exam, and they see pt remains confused and not capacitated. I have reviewed with them sedation was lowered. Pt also in the past when pt was not intubated remains incapacitated, and cannot weigh the risk and benefits of medical decisions. Pt's family/ Dahiana state that patient would not want continue intubation and on prolong life support. They want to transition to comfort measures only and transition to compassionate extubation. Comfort meds were explained and ordered. Family/friend interactions see above. Advance Directives Health Care Surrogate: Copy in medical record Advance Directive Specifics Date completed: [facility] -April 08, 2017 . Health Care Surrogate(s): HCS- (Long time friend-15 yrs) Kay Rizvi [phone]- (July 2017) Alternate [facility]- Cousin- Dahiana Mayorga [phone] (will serve as [facility]) . Objective Vital Signs Date Time Temp Pulse Resp B/P (MAP) Pulse Ox O2 Delivery O2 Flow Rate FiO2 09/24/17 11:00 93 45 09/24/17 10:00 75 09/24/17 09:00 98 09/24/17 08:51 92 45 09/24/17 08:00 66 09/24/17 07:00 98 Mechanical Ventilator 45 09/24/17 07:00 68 09/24/17 06:00 108 09/24/17 04:00 98.5 63 18 168/80 (109) 98 09/24/17 04:00 63 09/24/17 04:00 45 09/24/17 02:00 62 09/24/17 00:00 45 09/24/17 00:00 98.7 62 18 146/75 (98) 97 09/24/17 00:00 62 09/23/17 22:50 98 45 09/23/17 22:00 63 09/23/17 20:00 98.7 77 16 185/91 (122) 99 09/23/17 20:00 77 09/23/17 20:00 45 09/23/17 19:52 98 45 09/23/17 19:00 97 Mechanical Ventilator 50 09/23/17 18:00 62 09/23/17 17:00 72 09/23/17 16:00 62 09/23/17 16:00 45 09/23/17 16:00 98.0 62 19 139/70 (93) 98 09/23/17 15:00 75 09/23/17 14:38 100 45 09/23/17 14:00 74 09/23/17 13:00 65 09/23/17 12:28 98 45 09/23/17 12:00 98.5 59 18 169/76 (107) 93 09/23/17 12:00 59 09/23/17 12:00 45 Intake & Output 09/24/17 09/24/17 07:00 19:00 Intake Total 1203 ml Output Total 200 ml Balance 1003 ml IV Total 350 ml Tube Feeding 353 ml Other 500 ml Output Urine Total 200 ml # Bowel Movements 1 Physical Exam CONSTITUTIONAL/GENERAL: This is a chronically ill patient,on a mechanical ventilator , grimaces at times TUBES/LINES/DRAINS: ET tube, NGT, PIV x2 LUE, SCDs, Dockery catheter SKIN: No jaundice, rashes, or lesions. Pale. Ecchymosis to BUE. Skin tears to BUE EYES: PERRLA. No scleral icterus. No injection or drainage. Fundi not examined. ENT: Nose without bleeding or purulent drainage. NGT with TF infusing. Moist oral mucosa. CARDIOVASCULAR: Regular rate and rhythm no murmur. no JVD. Palpable pulses to all 4 extremities. RESPIRATORY/CHEST: RR 18 unlabored. FIO2 45% currently. Clear and diminished breath sounds. No wheezing GASTROINTESTINAL: Abdomen soft, non-tender, nondistended. NGT, +BSx4 GENITOURINARY: Without palpable bladder distension. Dockery catheter in place. MUSCULOSKELETAL: Extremities without clubbing, cyanosis.2+ Edema to BUE. No mottling or clubbing. NEUROLOGICAL:On sedation but awake. could not follow commands consistently.. PSYCHIATRIC: looks anxious with grimacing. . Diagnostic Tests Laboratory Laboratory Tests Test 09/22/17 06:44 09/24/17 05:37 White Blood Count 12.6 TH/MM3 (4.0-11.0) 10.0 TH/MM3 (4.0-11.0) Red Blood Count 3.38 MIL/MM3 (4.50-5.90) 3.74 MIL/MM3 (4.50-5.90) Hemoglobin 10.4 GM/DL (13.0-17.0) 11.5 GM/DL (13.0-17.0) Hematocrit 31.5 % (39.0-51.0) 34.5 % (39.0-51.0) Mean Corpuscular Volume 93.2 FL (80.0-100.0) 92.4 FL (80.0-100.0) Mean Corpuscular Hemoglobin 30.9 PG (27.0-34.0) 30.7 PG (27.0-34.0) Mean Corpuscular Hemoglobin Concent 33.1 % (32.0-36.0) 33.2 % (32.0-36.0) Red Cell Distribution Width 20.3 % (11.6-17.2) 20.4 % (11.6-17.2) Platelet Count 152 TH/MM3 (150-450) 108 TH/MM3 (150-450) Mean Platelet Volume 8.7 FL (7.0-11.0) 9.2 FL (7.0-11.0) Neutrophils (%) (Auto) 96.2 % (16.0-70.0) Lymphocytes (%) (Auto) 1.0 % (9.0-44.0) Monocytes (%) (Auto) 2.5 % (0.0-8.0) Eosinophils (%) (Auto) 0.0 % (0.0-4.0) Basophils (%) (Auto) 0.3 % (0.0-2.0) Neutrophils # (Auto) 12.1 TH/MM3 (1.8-7.7) Lymphocytes # (Auto) 0.1 TH/MM3 (1.0-4.8) Monocytes # (Auto) 0.3 TH/MM3 (0-0.9) Eosinophils # (Auto) 0.0 TH/MM3 (0-0.4) Basophils # (Auto) 0.0 TH/MM3 (0-0.2) CBC Comment AUTO DIFF Differential Total Cells Counted 100 Neutrophils % (Manual) 92 % (16-70) Band Neutrophils % 5 % (0-6) Monocytes % 1 % (0-8) Neutrophils # (Manual) 12.5 TH/MM3 (1.8-7.7) Myelocytes 2 % (0-0) Differential Comment FINAL DIFF MANUAL Platelet Estimate LOW (NORMAL) Platelet Morphology Comment NORMAL (NORMAL) Blood Urea Nitrogen 36 MG/DL (7-18) Creatinine 0.68 MG/DL (0.60-1.30) Random Glucose 176 MG/DL (74-106) Total Protein 5.7 GM/DL (6.4-8.2) Albumin 2.5 GM/DL (3.4-5.0) Calcium Level 7.9 MG/DL (8.5-10.1) Alkaline Phosphatase 97 U/L (45-117) Aspartate Amino Transf (AST/SGOT) 17 U/L (15-37) Alanine Aminotransferase (ALT/SGPT) 23 U/L (12-78) Total Bilirubin 0.4 MG/DL (0.2-1.0) Sodium Level 146 MEQ/L (136-145) Potassium Level 4.3 MEQ/L (3.5-5.1) Chloride Level 110 MEQ/L (98-107) Carbon Dioxide Level 27.2 MEQ/L (21.0-32.0) Anion Gap 9 MEQ/L (5-15) Estimat Glomerular Filtration Rate 118 ML/MIN (>89) Result Diagram: 09/24/17 0537 09/22/17 0644 Imaging Last Impressions Chest X-Ray 09/19/17 Signed Impressions: Service Date/Time: Tuesday, September 19, 2017 03:34 - CONCLUSION: 1. Improved edema pattern with persistent perihilar consolidation on the left. Improved left effusion. David Jay MD Abdomen X-Ray 09/18/17 Signed Impressions: Service Date/Time: Monday, September 18, 2017 11:07 - CONCLUSION: Dense consolidative opacity at the left lung base. Nonspecific gas pattern with a paucity of bowel gas seen. Eloy Georges MD CT Angiography 08/29/17 7579 Signed Impressions: Service Date/Time: Tuesday, August 29, 2017 19:36 - CONCLUSION: 1. Multilobar consolidation. 2. No evidence for pulmonary embolism. 3. Extensive coronary calcifications Pk Bae MD Procedures 08/29/17-intubation 08/31/17-self extubation 08/31/17-reintubated 09/15/17-medically extubated 09/17/17-reintubated . Assessment and Plan Disease Oriented Problem List: (1) Acute respiratory failure with hypoxia and hypercarbia (2) Lung cancer (3) Atrial fibrillation with RVR (4) Lung consolidation (5) COPD (chronic obstructive pulmonary disease) Symptom Scale: (1) Shortness of breath 0-10 Scale: Unable to quantify Comment: Hx of lung cancer. CT angiography revealed multilobar consolidation and no evidence for pulmonary embolism, extensive coronary calcifications. . (2) Pain 0-10 Scale: Unable to quantify Comment: Risk for pain-from procedure (intubation), bedbound status. . (3) Debility 0-10 Scale: Unable to quantify Comment: Progressive . Pertinent Non-Medical Issues Psychosocial:Patient was born and raised in [place]. He left [place] the age of 20. Patient moved to [place] in 1975. Patient has a 2 years college degree in [employer] technology. 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 Patient was and twice. He never had children. Spiritual:N quaker affiliation Legal:Patient has a HCS form signed and completed a Community DNR Ethical issues impacting care:None identified at this time . Important Contacts Alternate HCS- Cousin- Dahiana Mayorga [phone] Cousin- Stephanie Rodas -[phone] Friend-Nemo Lyon-[phone] XXX [facility]- (Long time friend-15 yrs) Kay Rizvi [phone]- . Prognosis Mr Adams is a 61 years old male with a past medical history significant of lung cancer s/p radiation, COPD, hypertension, coronary artery disease and tobacco use. Patient presented to the ER via EMS on 08/29/17 complaining of shortness of breath that had started the night before, generalized malaise and weakness. Clinical course complicated with atrial fibrillation with RVR, and acute hypoxic and hypercapnic respiratory failure. Given ongoing comorbidities , patient remains at high risk for further complications, deterioration and decline. . Code Status: No Code Plan Legal decision maker: Patient has been unable to participate in decision- making due to intubation and has remain so, and even when he was medically extubated has not demonstrated insight or understanding to make informed decisions. Continue decision making using healthcare surrogate cousin Dahiana Mayorga. Goals: Patient is a DNR. Compassionate withdrawal from life support today . Family would like patient to be kept comfortable and not suffer after he is extubated. Reviewed compassionate withdrawal process with family.Patient`s cousin Dahiana (HCS) met with hospice and signed consents. Exhibit B & C signed- on chart. CODE STATUS: No code- DNR SYMPTOMS: * Shortness of breath: Patient has history of lung cancer, COPD and tobacco use. Patient presented with shortness of breath. Intubated 08/29, self extubated 08/31, reintubated 08/31 secondary to respiratory failure. Solu-Medrol and duo nebs prn. Multiple re-intubations. Patient`s HCS planning on proceeding with compassionate withdrawal from life support on 09/24/17. Morphine will be available. Atc morphine and fentanyl present as pt is grimacing after lowerin sedation * Pain: Patient is at risk for pain, bedbound, multiple intubation/extubation since admission. Family requesting that patient be kept comfortable at time of compassionate withdrawal from life support. Ativan schedule. * Anxiety- associated with dyspnea and decline. family amenable to Ativan schedule. Ativan will be available. Palliative care will continue to follow the patient during hospital course as condition evolves, to assist patient/decision-maker with understanding of their medical conditions, weighing benefits/burdens of treatment options, for clarification of goals of treatment. Additionally will assist with any symptoms of palliative concern Attestation To help prompt me to consider important information that might be impacting today's encounter and assessment, information from prior notes written by myself or my colleagues may have been "brought forward" into today's note. My signature on this note, however, is an attestation that I personally performed the exam, history, and/or decision-making noted today, and, unless otherwise indicated, the interactions with patient, family, and staff as well as the review of records all occurred today. I also attest that the listed assessment and stated plan reflect my best clinical judgment today based on the combination of historical information, prior notes, and today's exam/ interactions. When time spent is documented, it refers only to time spent today by the signer, or if indicated, combined time spent today by collaborating physician/nurse practitioner. Tima Russo MD September 24, 2017 11:26
--- NOTE | 2017-09-24 15:51 | HHI.CCPN ---
Subjective Remarks/Hospital Course 08/29: This is a 61-year-old male with a history of lung cancer undergoing current chemotherapy and radiation who was recently admitted on 07/19 for aspiration pneumonia. During that admission he did have episodes of paroxysmal atrial fibrillation and had an echo from 04/2017 showing an EF of 50-55%. He represents today to the emergency department with acute shortness of breath since last night. Per the ER documentation, he denies any coughing, fever, chills, or other recent symptoms or changes other than the new dyspnea. In the emergency department he was found to be in A. fib with RVR. This initially converted to sinus rhythm 1 after diltiazem 20 mg IV bolus, but then very quickly went back into atrial for ablation with rapid ventricular response. 2 doses of adenosine were not able to convert it. The patient was loaded with amiodarone and infusion was started. After this, the patient become acutely hypoxemic requiring emergent intubation. Please refer to the emergency room physician documentation for additional details regarding the decompensation. When I came to evaluate patient, the patient was recently intubated, sedated. No additional information is available from the patient due to his clinical condition. Review of systems is unobtainable. Critical care medicine is consulted to evaluate manage his acute hypoxic respiratory failure along with his acute supraventricular tachycardia. 08/30: Patient remains intubated and sedated. FiO2 down to 0.5. Patient continues to be on amiodarone infusion and heparin drip. Sedation achieved with propofol and fentanyl. Patient remains hypothermic requiring Gracia hugger, urine output 350 mL's documented since admission. 08/31: No events over the night. Patient remains intubated and sedated. Hemoglobin more stable posttransfusion. Hypothermia resolved, T-max of 100.3. Urine output remains low, 635 mL's over the last 24 hours. Oxygenation is improved. No family present at bedside. Patient remains in sinus rhythm, on amiodarone infusion. No report of melena, hematochezia or coffee-ground aspirate from NG tube. Morning chest x-ray reviewed, worsening infiltrates over the right thorax, unchanged consolidation over the left. 09/01: Afebrile. Patient was extubated yesterday afternoon and emergently intubated 1030 last night secondary to hypoxemic respiratory failure. This x- ray pending this a.m.. The patient also was noted to have severe metabolic acidosis and sodium bicarbonate infusion was initiated. Patient noted to have Pseudomonas, and placed on Zosyn. Patient continues to have leukocytosis with worsening pneumonia ID has been consulted appreciate recommendations. Patient previously DNR palliative has been consulted up on hypoxemic respiratory failure patient was noted to request intubation at that time. Palliative care consult pending. Patient continues on amiodarone infusion now in sinus rhythm. Amiodarone infusion discontinued the patient continued on metoprolol and Cardizem home medications. Hemoglobin appears stable status post 2 units transfusion 48 hours ago. Will do serial H&H's aspirin reinitiated will hold Plavix for now, and continue to follow. Subcu heparin initiated. 09/02: Afebrile. Hemoglobin stable for the last 24 hours. Plan to restart tube feeds this a.m.. Metabolic acidosis resolved, patient's sodium bicarbonate discontinued. Patient requiring increasing FiO2 requirements during the night , now at 100% ABG pending. This am chest x-ray worsening. 09/03: Late entry note patient seen at 8:15 AM .afebrile. Chest x-ray continues to worsen. FiO2 requirement slightly decreased we will attempt CPAP trials today. 09/04: Afebrile. patient awake and following commands this a.m. Currently on CPAP trials. FiO2 weaned to 45% 09/05: Afebrile. Patient tolerating CPAP trials. She noted to have elevated blood glucose level secondary methylprednisolone. Chest x-ray now improving methylprednisolone taper initiated. Patient noted to still have episodes of hypertension Cardizem increased to 90 mg every 6 hours. 09/06: Patient currently in a flutter. Received adenosine 12 mg 1 which feels a flutter. Echocardiogram CPK and troponin ordered. TSH normal during this hospitalization. Potassium magnesium both normalized. Arousable and follows commands. 09/07: Patient is currently on PSV trial 20/8 ~35%. Patient oscillating on CODE STATUS. Tolerating tube feeds. Remains in normal sinus rhythm on amiodarone drip. 09/08: No events over the night. CPAP trial was attempted this morning patient went into A. fib with RVR after 15 minutes. Patient was switched back to full support, and converted to sinus rhythm. He continues to be on amiodarone infusion and heparin drip. He is lethargic but easily arousable able to follow some commands. FiO2 at 0.5 and PEEP at 8. T-max of 99. 09/09: No events over the night. T-max of 98.9. Patient remains intubated and sedated, on propofol and fentanyl. CPAP trial attempted this morning again and patient went into A. fib with RVR and hypoxia, therefore he was placed back on PRVC. No family present at bedside. Urine output of 2350 mL over the last 24 hours. He is +22 L since admission charting is correct. 09/10: No events over the night. This morning patient is in A. fib with RVR heart rate 150, hemodynamically stable. Patient had excellent response to diuresis, urine output greater than 4 L over the last 24 hours. T-max of 98.5. No family present at bedside. Morning chest x-ray reviewed. 09/11: Patient did well over the night. He remains in sinus rhythm on amiodarone infusion. Patient was started on Lasix drip yesterday with great urine output. Patient is negative approximately 2.5 L over the last 24 hours. Afebrile, with Tmax of 99.9. Oxygenation down to 40%. 09/12: No events over the night. Patient remains afebrile with a T-max of 99.4. Patient continues to be on Lasix drip with good urine output however he still on positive fluid balance over the last 24 hours. Lasix drip increased to 7.5 mg/h this morning. He continues to be on amiodarone infusion, and sedation with propofol and fentanyl. Patient is awake, weak, following some commands. Oxygenation not significantly improved, still requiring PEEP of 7 and 50% O2. Morning chest x-ray reviewed, ET tube is in good position, no significant change compared to 2 days ago. 09/13: No events over the night. Patient remains intubated and sedated. Afebrile over the night with a T-max of 98.9. -1.5 L over the last 24 hours. 09/14 Patient is intubated and sedated with Fentanyl drip. On Amio and Lasix drips. UOP: 4.1 L overnight. 09/15 Patient remains intubated and sedated. off Lasix drip. TF held for emesis/ high residuals. Patient was in Afib with RVR and restarted on Amio drip overnight. (Amio was held during day yesterday for bradycardia) 09/16 Patient was extubated yesterday on 10L simple mask. Awake. Afebrile. Remains on Amio drip. 09/17 Patient was reintubated during night sedated with Diprivan and fentanyl drips. Afebrile. 09/18 Patient remains intubated and sedated. TF held for high residuals. 09/19 Remains on mechanical ventilation. Will do SBT today. HAving BMs and tolerating tube feeds at 20 ml/hr, will advance. Surrogate struggling with decision making regarding goals of care. 09/20 Hypertensive and CPAP not tolerated, meds adjusted. . Tube feeds held due to residual 240, resuming. Afebrile. 09/21: Remains orally intubated on mechanical ventilation. Subjective: 09/22 Intubated on mechanical ventilation. Met with [facility] Dahiana. Discussed condition, prognosis. Multiple questions answered. Code status is DNR. She plans to transition to comfort later this week. Exhibits signed. 09/23: Remains sedated, orally intubated on mechanical ventilation. Family awaiting transition to comfort measures tomorrow. 09/24: Remains sedated, orally intubated on mechanical ventilation. Awaiting transition to comfort measures. Objective Vital Signs Date Time Temp Pulse Resp B/P (MAP) Pulse Ox O2 Delivery O2 Flow Rate FiO2 09/24/17 14:00 71 09/24/17 12:00 45 09/24/17 12:00 97.7 30 138/70 (92) 94 09/24/17 07:00 Mechanical Ventilator Intake and Output 09/24/17 09/24/17 09/25/17 08:00 16:00 00:00 Intake Total 1203 ml Output Total 200 ml Balance 1003 ml Result Diagram: 09/24/17 0537 09/22/17 0644 Imaging Last Impressions Chest X-Ray 09/17/17 0000 Signed Impressions: Service Date/Time: September 03:03 - CONCLUSION: Worsening bilateral pulmonary infiltrates with small left effusion. Jessee Gilliam Jr., MD Abdomen X-Ray 09/15/17 0000 Signed Impressions: Service Date/Time: Friday, September 15, 2017 08:57 - CONCLUSION: Nonobstructive bowel gas pattern. Eloy Georges MD CT Angiography 08/29/17 1849 Signed Impressions: Service Date/Time: Tuesday, August 29, 2017 19:36 - CONCLUSION: 1. Multilobar consolidation. 2. No evidence for pulmonary embolism. 3. Extensive coronary calcifications Pk Bae MD Objective Remarks Drips: Propofol 20 mg/kg/min Fentanyl 250 mg/h Jevity 50 mL/h GENERAL: Patient is 62 yo intubated and on sedation. SKIN: Warm and dry, well perfused. Ecchymosis right forearm. HEAD: Normocephalic. EYES: No scleral icterus. No injection or drainage. NECK: Supple, trachea midline. No JVD or lymphadenopathy. CARDIOVASCULAR: Regular rate and rhythm without murmurs, gallops, or rubs. RESPIRATORY: Orotracheally intubated. Coarse bilateral breath sounds. GASTROINTESTINAL: Abdomen soft, mildly distended and mildly tympanitic. No tenderness. MUSCULOSKELETAL: No cyanosis, or edema. Neuro: On sedation. Eyes closed, appears comfortable. A/P Problem List: (1) OBED (acute kidney injury) ICD Code: N17.9 - Acute kidney failure, unspecified (2) Severe protein-calorie malnutrition ICD Code: E43 - Unspecified severe protein-calorie malnutrition Status: Chronic (3) Shortness of breath ICD Code: R06.02 - Shortness of breath Status: Acute (4) Tobacco abuse ICD Code: Z72.0 - Tobacco use Status: Chronic (5) Paroxysmal A-fib ICD Code: I48.0 - Paroxysmal atrial fibrillation Status: Chronic (6) Atrial fibrillation with RVR ICD Code: I48.91 - Unspecified atrial fibrillation Status: Resolved (7) PNA (pneumonia) ICD Code: J18.9 - Pneumonia, unspecified organism (8) COPD (chronic obstructive pulmonary disease) ICD Code: J44.9 - Chronic obstructive pulmonary disease, unspecified (9) Lung cancer ICD Code: C34.90 - Malignant neoplasm of unspecified part of unspecified bronchus or lung (10) Debility ICD Code: R53.81 - Other malaise Status: Chronic (11) Pain ICD Code: R52 - Pain, unspecified Status: Chronic (12) Lung consolidation ICD Code: J18.1 - Lobar pneumonia, unspecified organism Status: Acute (13) Acute respiratory failure with hypoxia and hypercarbia ICD Code: J96.01 - Acute respiratory failure with hypoxia; J96.02 - Acute respiratory failure with hypercapnia Assessment and Plan 1. Acute respiratory failure-intubated 08/29, extubated 08/31 and required reintubation later that evening., extubated 09/15, reintubated 09/17 2. Pseudomonas pneumonia -patient remains afebrile 3. Acute COPD exacerbation 4. Lung cancer currently undergoing radiation therapy and chemotherapy prior to hospitalization 5. Atrial fibrillation with rapid ventricular response -multiple recurrences during the admission, currently in sinus rhythm 6. Elevated troponin - trending down 7. Acute blood loss anemia -r 8. OBED -resolved Plan Neuro: On Diprivan, Fentanyl infusion for sedation. Daily sedation vacation Pulm: Continue with vent support keep sats >92% Bronchodilators with Duoneb q4 hours, ICU vent bundle. Spontaneous breathing trial daily. Weaned Solumederol 40mg IV Q8 Patient would need trach/PEG for ongoing aggressive care. CV: Hypertensive. D/c cardizem in view of bradycardia. . Continue hydralazine 50 p.o. every 6, lisinopril 10 mg p.o. daily, continue Isordil 10 p.o. every 8 hours, metoprolol 50 mg p.o. every 12 hours Labetalol as needed. Hydralazine IV shortage. Continue pravastatin 10 mg p.o. daily Echo 09/08/17 showed EF 40-45%, large left pleural effusion : Hypernatremia Monitor renal function, I/O's, electrolytes replacement per protocol Sodium is down trending. Continue free water 250ml Q8 monitor sodium level. GI: Contineu tube feeds via NGT( Jevity 1.is at goal rate 50ml/hr per nutrition recs. ) Continue Reglan 5mg IV Q8 KUB abdomen 09/15 : Non obstructive bowel gas pattern GI is following will need PEG/EGD/colonoscopy when stable but awaiting clarity regarding goals of care. ID Pseudomonas pneumonia Sputum cx 08/30, 09/11: Pseudomonas Blood culture, sputum cx from 09/17 are negative. Zosyn and Levaquin discontinued per ID. Monitoring off antibiotics Endo: Medium dose SSI q6 hours. Heme: Monitor CBC, GI prophylaxis with Protonix 40mg daily DVT prophylaxis with SCDs. Continue Heparin Sq, monitor H/H Full code Patient is not capacitated for medical decision making. His condition is end- stage and terminal. Dr. Ribera met with healthcare surrogate, Dahiana. Was accompanied by Randa with palliative care. Multiple questions answered. Dahiana desires comfort measures. Would like to maintain supportive care on vent while awaiting family members to see her and other affairs are in order, but she states she plans for compassionate withdrawal. Code Status DNR. Dahiana requested hospice consult. She met with hospice 09/23. Awaiting transition to comfort measures. Level 3 followup. Problem Qualifiers (1) PNA (pneumonia): Qualified Codes: J18.1 - Lobar pneumonia, unspecified organism Samy Valdez MD September 24, 2017 15:51
[2017-09-24] MEDS ORDERED: MORPHINE SULFATE 8 MG/ML INJ IV PUSH ONE (16:00)
[2017-09-24] MEDS ORDERED: LORazepam 2 MG/ML VIAL IV PUSH ONE ×2 (16:00→16:15)
[2017-09-24] MEDS ORDERED: HYOSCYAMINE 0.5 MG/ML AMP IV PUSH ONE (16:00)
[2017-09-24] MEDS ORDERED: MORPHINE SULFATE 4 MG/ML INJ IV PUSH ONE (16:15)
[2017-09-24] MEDS ORDERED: HYOSCYAMINE 0.5 MG/ML AMP IV PUSH PRN (16:30)
[2017-09-24] MEDS ORDERED: BISACODYL 10 MG SUPP RECTAL PRN (16:30)
[2017-09-24] MEDS ORDERED: FUROSEMIDE 20 MG/2 ML VIAL IV PUSH PRN (16:30)
[2017-09-24] MEDS ORDERED: MORPHINE SULFATE 8 MG/ML INJ IV PUSH PRN (16:30)
[2017-09-24] MEDS ORDERED: LORazepam 2 MG/ML VIAL IV PUSH PRN ×2 (16:30)
[2017-09-24] MEDS ORDERED: ACETAMINOPHEN 650 MG SUPP RECTAL PRN (16:30)
[2017-09-24] MEDS: LORazepam 2 MG/ML VIAL IV PUSH SCH ×2 (19:32→23:43)
[2017-09-24] MEDS: MORPHINE SULFATE 4 MG/ML INJ IV PUSH SCH ×2 (19:33→23:42)
[2017-09-24] MEDS: MORPHINE SULFATE 4 MG/ML INJ IV PUSH PRN ×2 (22:41→23:43)
[2017-09-24] MEDS: LORazepam 2 MG/ML VIAL IV PUSH PRN (23:43)
[2017-09-25] MEDS: fentaNYL DRIP 250 ML IV PRN ×2 (02:20→10:34)
[2017-09-25] MEDS: methylPREDNISolone SOD SUCC 40 MG/1 ML VIAL IV PUSH SCH (03:36)
[2017-09-25] MEDS: MORPHINE SULFATE 4 MG/ML INJ IV PUSH SCH ×2 (03:51→07:58)
[2017-09-25] MEDS: LORazepam 2 MG/ML VIAL IV PUSH SCH ×2 (03:51→07:58)
[2017-09-25 08:00] VITALS: BP 129/75; PULSE 99; RESP 23; TEMP 97.3; O2SAT 64
[2017-09-25] MEDS: MORPHINE SULFATE 4 MG/ML INJ IV PUSH PRN (09:19)
[2017-09-25] MEDS: LORazepam 2 MG/ML VIAL IV PUSH PRN (09:19)
--- NOTE | 2017-09-25 17:18 | HHI.DS ---
Discharge Summary Admission Date Aug 29, 2017 at 18:52 Admitting Diagnosis Respiratory failure. A. fib with RVR. Brief History This is a 61-year-old male with a history of lung cancer undergoing current chemotherapy and radiation who was recently admitted on 07/19 for aspiration pneumonia. During that admission he did have episodes of paroxysmal atrial fibrillation and had an echo from 04/2017 showing an EF of 50-55%. He represents today to the emergency department with acute shortness of breath since last night. Per the ER documentation, he denies any coughing, fever, chills, or other recent symptoms or changes other than the new dyspnea. In the emergency department he was found to be in A. fib with RVR. This initially converted to sinus rhythm 1 after diltiazem 20 mg IV bolus, but then very quickly went back into atrial for ablation with rapid ventricular response. 2 doses of adenosine were not able to convert it. The patient was loaded with amiodarone and infusion was started. After this, the patient become acutely hypoxemic requiring emergent intubation. Please refer to the emergency room physician documentation for additional details regarding the decompensation. When I came to evaluate patient, the patient was recently intubated, sedated. No additional information is available from the patient due to his clinical condition. Review of systems is unobtainable. Critical care medicine is consulted to evaluate manage his acute hypoxic respiratory failure along with his acute supraventricular tachycardia. CBC/BMP: 09/24/17 0537 09/22/17 0644 Significant Findings Laboratory Tests Test 09/24/17 05:37 Red Blood Count 3.74 MIL/MM3 (4.50-5.90) Hemoglobin 11.5 GM/DL (13.0-17.0) Hematocrit 34.5 % (39.0-51.0) Red Cell Distribution Width 20.4 % (11.6-17.2) Platelet Count 108 TH/MM3 (150-450) PE at Discharge Appears comfortable, on comfort measures only. Transfer Summary Assessment and Plan 1. Acute respiratory failure-intubated 08/29, extubated 08/31 and required reintubation later that evening., extubated 09/15, reintubated 09/17 2. Pseudomonas pneumonia -patient remains afebrile 3. Acute COPD exacerbation 4. Lung cancer currently undergoing radiation therapy and chemotherapy prior to hospitalization 5. Atrial fibrillation with rapid ventricular response -multiple recurrences during the admission, currently in sinus rhythm 6. Elevated troponin - trending down 7. Acute blood loss anemia -r 8. OBED -resolved Plan Neuro: On Diprivan, Fentanyl infusion for sedation. Daily sedation vacation Pulm: Continue with vent support keep sats >92% Bronchodilators with Duoneb q4 hours, ICU vent bundle. Spontaneous breathing trial daily. Weaned Solumederol 40mg IV Q8 Patient would need trach/PEG for ongoing aggressive care. CV: Hypertensive. D/c cardizem in view of bradycardia. . Continue hydralazine 50 p.o. every 6, lisinopril 10 mg p.o. daily, continue Isordil 10 p.o. every 8 hours, metoprolol 50 mg p.o. every 12 hours Labetalol as needed. Hydralazine IV shortage. Continue pravastatin 10 mg p.o. daily Echo 09/08/17 showed EF 40-45%, large left pleural effusion : Hypernatremia Monitor renal function, I/O's, electrolytes replacement per protocol Sodium is down trending. Continue free water 250ml Q8 monitor sodium level. GI: Contineu tube feeds via NGT( Jevity 1.is at goal rate 50ml/hr per nutrition recs. ) Continue Reglan 5mg IV Q8 KUB abdomen 09/15 : Non obstructive bowel gas pattern GI is following will need PEG/EGD/colonoscopy when stable but awaiting clarity regarding goals of care. ID Pseudomonas pneumonia Sputum cx 08/30, 09/11: Pseudomonas Blood culture, sputum cx from 09/17 are negative. Zosyn and Levaquin discontinued per ID. Monitoring off antibiotics Endo: Medium dose SSI q6 hours. Heme: Monitor CBC, GI prophylaxis with Protonix 40mg daily DVT prophylaxis with SCDs. Continue Heparin Sq, monitor H/H Full code Patient is not capacitated for medical decision making. His condition is end- stage and terminal. Dr. Ribera met with healthcare surrogate, Dahiana. Was accompanied by Randa with palliative care. Multiple questions answered. Dahiana desires comfort measures. Would like to maintain supportive care on vent while awaiting family members to see her and other affairs are in order, but she states she plans for compassionate withdrawal. Code Status DNR. Dahiana requested hospice consult. She met with hospice 09/23. Awaiting transition to comfort measures. Abdominal been performed on 09/24 and patient extubated with comfort measures only. On 09/26, patient was transferred to hospice facility. Hospital Course 08/29: This is a 61-year-old male with a history of lung cancer undergoing current chemotherapy and radiation who was recently admitted on 07/19 for aspiration pneumonia. During that admission he did have episodes of paroxysmal atrial fibrillation and had an echo from 04/2017 showing an EF of 50-55%. He represents today to the emergency department with acute shortness of breath since last night. Per the ER documentation, he denies any coughing, fever, chills, or other recent symptoms or changes other than the new dyspnea. In the emergency department he was found to be in A. fib with RVR. This initially converted to sinus rhythm 1 after diltiazem 20 mg IV bolus, but then very quickly went back into atrial for ablation with rapid ventricular response. 2 doses of adenosine were not able to convert it. The patient was loaded with amiodarone and infusion was started. After this, the patient become acutely hypoxemic requiring emergent intubation. Please refer to the emergency room physician documentation for additional details regarding the decompensation. When I came to evaluate patient, the patient was recently intubated, sedated. No additional information is available from the patient due to his clinical condition. Review of systems is unobtainable. Critical care medicine is consulted to evaluate manage his acute hypoxic respiratory failure along with his acute supraventricular tachycardia. 08/30: Patient remains intubated and sedated. FiO2 down to 0.5. Patient continues to be on amiodarone infusion and heparin drip. Sedation achieved with propofol and fentanyl. Patient remains hypothermic requiring Gracia hugger, urine output 350 mL's documented since admission. 08/31: No events over the night. Patient remains intubated and sedated. Hemoglobin more stable posttransfusion. Hypothermia resolved, T-max of 100.3. Urine output remains low, 635 mL's over the last 24 hours. Oxygenation is improved. No family present at bedside. Patient remains in sinus rhythm, on amiodarone infusion. No report of melena, hematochezia or coffee-ground aspirate from NG tube. Morning chest x-ray reviewed, worsening infiltrates over the right thorax, unchanged consolidation over the left. 09/01: Afebrile. Patient was extubated yesterday afternoon and emergently intubated 1030 last night secondary to hypoxemic respiratory failure. This x- ray pending this a.m.. The patient also was noted to have severe metabolic acidosis and sodium bicarbonate infusion was initiated. Patient noted to have Pseudomonas, and placed on Zosyn. Patient continues to have leukocytosis with worsening pneumonia ID has been consulted appreciate recommendations. Patient previously DNR palliative has been consulted up on hypoxemic respiratory failure patient was noted to request intubation at that time. Palliative care consult pending. Patient continues on amiodarone infusion now in sinus rhythm. Amiodarone infusion discontinued the patient continued on metoprolol and Cardizem home medications. Hemoglobin appears stable status post 2 units transfusion 48 hours ago. Will do serial H&H's aspirin reinitiated will hold Plavix for now, and continue to follow. Subcu heparin initiated. 09/02: Afebrile. Hemoglobin stable for the last 24 hours. Plan to restart tube feeds this a.m.. Metabolic acidosis resolved, patient's sodium bicarbonate discontinued. Patient requiring increasing FiO2 requirements during the night , now at 100% ABG pending. This am chest x-ray worsening. 09/03: Late entry note patient seen at 8:15 AM .afebrile. Chest x-ray continues to worsen. FiO2 requirement slightly decreased we will attempt CPAP trials today. 09/04: Afebrile. patient awake and following commands this a.m. Currently on CPAP trials. FiO2 weaned to 45% 09/05: Afebrile. Patient tolerating CPAP trials. She noted to have elevated blood glucose level secondary methylprednisolone. Chest x-ray now improving methylprednisolone taper initiated. Patient noted to still have episodes of hypertension Cardizem increased to 90 mg every 6 hours. 09/06: Patient currently in a flutter. Received adenosine 12 mg 1 which feels a flutter. Echocardiogram CPK and troponin ordered. TSH normal during this hospitalization. Potassium magnesium both normalized. Arousable and follows commands. 09/07: Patient is currently on PSV trial /8 ~35%. Patient oscillating on CODE STATUS. Tolerating tube feeds. Remains in normal sinus rhythm on amiodarone drip. 09/08: No events over the night. CPAP trial was attempted this morning patient went into A. fib with RVR after 15 minutes. Patient was switched back to full support, and converted to sinus rhythm. He continues to be on amiodarone infusion and heparin drip. He is lethargic but easily arousable able to follow some commands. FiO2 at 0.5 and PEEP at 8. T-max of 99. 09/09: No events over the night. T-max of 98.9. Patient remains intubated and sedated, on propofol and fentanyl. CPAP trial attempted this morning again and patient went into A. fib with RVR and hypoxia, therefore he was placed back on PRVC. No family present at bedside. Urine output of 2350 mL over the last 24 hours. He is +22 L since admission charting is correct. 09/10: No events over the night. This morning patient is in A. fib with RVR heart rate 150, hemodynamically stable. Patient had excellent response to diuresis, urine output greater than 4 L over the last 24 hours. T-max of 98.5. No family present at bedside. Morning chest x-ray reviewed. 09/11: Patient did well over the night. He remains in sinus rhythm on amiodarone infusion. Patient was started on Lasix drip yesterday with great urine output. Patient is negative approximately 2.5 L over the last 24 hours. Afebrile, with Tmax of 99.9. Oxygenation down to 40%. 09/12: No events over the night. Patient remains afebrile with a T-max of 99.4. Patient continues to be on Lasix drip with good urine output however he still on positive fluid balance over the last 24 hours. Lasix drip increased to 7.5 mg/h this morning. He continues to be on amiodarone infusion, and sedation with propofol and fentanyl. Patient is awake, weak, following some commands. Oxygenation not significantly improved, still requiring PEEP of 7 and 50% O2. Morning chest x-ray reviewed, ET tube is in good position, no significant change compared to 2 days ago. 09/13: No events over the night. Patient remains intubated and sedated. Afebrile over the night with a T-max of 98.9. -1.5 L over the last 24 hours. 09/14 Patient is intubated and sedated with Fentanyl drip. On Amio and Lasix drips. UOP: 4.1 L overnight. 09/15 Patient remains intubated and sedated. off Lasix drip. TF held for emesis/ high residuals. Patient was in Afib with RVR and restarted on Amio drip overnight. (Amio was held during day yesterday for bradycardia) 09/16 Patient was extubated yesterday on 10L simple mask. Awake. Afebrile. Remains on Amio drip. 09/17 Patient was reintubated during night sedated with Diprivan and fentanyl drips. Afebrile. 09/18 Patient remains intubated and sedated. TF held for high residuals. 09/19 Remains on mechanical ventilation. Will do SBT today. HAving BMs and tolerating tube feeds at 20 ml/hr, will advance. Surrogate struggling with decision making regarding goals of care. 09/20 Hypertensive and CPAP not tolerated, meds adjusted. . Tube feeds held due to residual 240, resuming. Afebrile. 09/21: Remains orally intubated on mechanical ventilation. Subjective: 09/22 Intubated on mechanical ventilation. Met with [facility] Dahiana. Discussed condition, prognosis. Multiple questions answered. Code status is DNR. She plans to transition to comfort later this week. Exhibits signed. 09/23: Remains sedated, orally intubated on mechanical ventilation. Family awaiting transition to comfort measures tomorrow. 09/24: Remains sedated, orally intubated on mechanical ventilation. Patient was transitioned to comfort measures only and terminal wean performed. Patient extubated. Ativan and morphine as needed ordered per palliative care team. 09/25: Patient appears comfortable and is receiving comfort measures only. Discussed with hospice team. Discharge to [facility] hospice facility. Pt Condition on Discharge: Deteriorating Discharge Disposition: Hospice/Med Facility Discharge Instructions DIET: Follow Instructions for: Nothing By Mouth Activities you can perform: Continue Bedrest Samy Valdez MD September 25, 2017 17:18
== END 2017-09-25 10:55 | disposition hospice, inpatient (51) | DRG 207 ==
LOC: NEPC 15:25 → NEDA 18:52 → HIMN 22:45
PROVIDERS: ADMIT Internal Medicine Critical Care Medicine; ATTEND Internal Medicine Critical Care Medicine
PROC: 0BH17EZ Insertion of Endotracheal Airway into Trachea, Via Natural or Artificial Opening (ICD-10-PCS; principal; 2017-08-29)
PROC: 5A1945Z Respiratory Ventilation, 24-96 Consecutive Hours (ICD-10-PCS; 2017-08-29)
PROC: 30233N1 Transfusion of Nonautologous Red Blood Cells into Peripheral Vein, Percutaneous Approach (ICD-10-PCS; 2017-08-30)
PROC: 5A1955Z Respiratory Ventilation, Greater than 96 Consecutive Hours (ICD-10-PCS; 2017-09-01)
PROC: 0BH17EZ Insertion of Endotracheal Airway into Trachea, Via Natural or Artificial Opening (ICD-10-PCS; 2017-09-01)
PROC: 0BH18EZ Insertion of Endotracheal Airway into Trachea, Via Natural or Artificial Opening Endoscopic (ICD-10-PCS; 2017-09-17)
PROC: 5A1955Z Respiratory Ventilation, Greater than 96 Consecutive Hours (ICD-10-PCS; 2017-09-17)
DX: J96.01 Acute respiratory failure with hypoxia (principal); I21.4 Non-ST elevation (NSTEMI) myocardial infarction; J15.1 Pneumonia due to Pseudomonas; E43 Unspecified severe protein-calorie malnutrition; J90 Pleural effusion, not elsewhere classified; N17.9 Acute kidney failure, unspecified; E87.2 Acidosis; D62 Acute posthemorrhagic anemia; I48.92 Unspecified atrial flutter; E87.0 Hyperosmolality and hypernatremia; C34.92 Malignant neoplasm of unspecified part of left bronchus or lung; J44.1 Chronic obstructive pulmonary disease with (acute) exacerbation; J44.0 Chronic obstructive pulmonary disease with (acute) lower respiratory infection; I47.1 Supraventricular tachycardia; I48.0 Paroxysmal atrial fibrillation; J96.02 Acute respiratory failure with hypercapnia; F41.9 Anxiety disorder, unspecified; F32.9 Major depressive disorder, single episode, unspecified; I25.10 Atherosclerotic heart disease of native coronary artery without angina pectoris; I73.9 Peripheral vascular disease, unspecified; I10 Essential (primary) hypertension; F17.200 Nicotine dependence, unspecified, uncomplicated; E83.39 Other disorders of phosphorus metabolism; E83.42 Hypomagnesemia; R73.9 Hyperglycemia, unspecified; Z66 Do not resuscitate; R68.0 Hypothermia, not associated with low environmental temperature; Z51.5 Encounter for palliative care; R00.1 Bradycardia, unspecified; T46.1X5A Adverse effect of calcium-channel blockers, initial encounter; E78.5 Hyperlipidemia, unspecified; E87.6 Hypokalemia; E87.70 Fluid overload, unspecified; H91.90 Unspecified hearing loss, unspecified ear; K21.9 Gastro-esophageal reflux disease without esophagitis; I95.9 Hypotension, unspecified; K59.00 Constipation, unspecified; Z87.01 Personal history of pneumonia (recurrent); Z99.81 Dependence on supplemental oxygen; Z92.21 Personal history of antineoplastic chemotherapy; Z79.82 Long term (current) use of aspirin; Z92.3 Personal history of irradiation; Z95.5 Presence of coronary angioplasty implant and graft
CPT/HCPCS: 31500; 36430; 36600; 51702; 71045; 71275; 74018; 76937; 80048; 80053; 80061; 80202; 81001; 82272; 82550; 82805; 82948; 83735; 83880; 84100; 84132; 84145; 84439; 84443; 84481; 84484; 85007; 85014; 85018; 85025; 85027; 85610; 85730; 86403; 86850; 86900; 86901; 86920; 87040; 87070; 87077; 87186; 87205; 87385; 87449; 87641; 93005; 93308; 94002; 94003; 94150; 94640; 94664; 96361; 96365; 96368; 99292; C9113; J0153; J0282; J0330; J0360; J0456; J0610; J1120; J1644; J1940; J1956; J1980; J2060; J2250; J2270; J2405; J2543; J2765; J2920; J2930; J3010; J3370; J3475; J3480; J7030; J7050; J7070; J7120; J7613; J7614; J7644; P9040; P9047; Q9967